=== PATIENT | female | born 1945 | race Caucasian/White ===

== ENCOUNTER 2016-03-12 11:29 | Inpatient (IN) | payer MEDICARE, OTHER ==
[2016-03-12] MEDS ORDERED: SODIUM CHLORIDE 0.9% 1,000 ML IV STA (15:49)
--- NOTE | 2016-03-12 15:55 | ED ---
General Adult HPI - General Chief complaint: Neuro Symptoms/Deficit Stated complaint: weakness Time Seen by Provider: 03/12/16 15:19 Source: patient Mode of arrival: wheelchair Limitations: no limitations - History of Present Illness Initial comments: Patient is a 70-year-old female with past history of COPD, CAD, diabetes, hypertension, hyperlipidemia presenting with weakness. Per , patient was last seen normal around dinnertime yesterday at 3 PM. Patient woke up this morning around 7:30 AM unable to talk and walk. Glucose was checked and noted to be 74. Patient then ate peanut butter and 15-20 minutes later symptoms seemed to resolved with a repeat glucose around 222. Patient was persistently still weak on her feet. They state she's had symptoms like this before and was related to her glucose. Patient called PCP who directed her to the emergency room. Patient denies fever, chills, chest pain, stress breath, nausea, vomiting , diarrhea, dysuria. Patient was a double vision, decrease concentration, weakness, disequilibrium. - Related Data Home Medications Medication Instructions Recorded Confirmed Atorvastatin [Lipitor] 80 mg PO HS 03/21/14 03/12/16 Baclofen 10 - 20 mg PO HS 03/21/14 03/12/16 Dicyclomine [Bentyl] 10 mg PO TID PRN 03/21/14 03/12/16 Fluticasone/Salmeterol [Advair 1 puff INHALATION RT-BID 03/21/14 03/12/16 250-50 Diskus] Hydrochlorothiazide [Hydrodiuril] 25 mg PO QAM 03/21/14 03/12/16 Hydrocodone/Acetaminophen [Taylor 1 tab PO Q6HR PRN 03/21/14 03/12/16 7.5-325] Levocetirizine Dihydrochloride 5 mg PO QAM 03/21/14 03/12/16 [Xyzal] Lisinopril [Zestril] 5 mg PO QAM 03/21/14 03/12/16 Meclizine [Antivert] 25 mg PO TID PRN 03/21/14 03/12/16 Modafinil [Provigil] 100 mg PO TID 03/21/14 03/12/16 Pantoprazole Sodium [Protonix] 40 mg PO QAM 03/21/14 03/12/16 Pramipexole Di-HCl [Mirapex] 1 mg PO HS 03/21/14 03/12/16 Pregabalin [Lyrica] 200 mg PO TID 03/21/14 03/12/16 sitaGLIPtin PHOSPHATE [Januvia] 100 mg PO QAM 03/21/14 03/12/16 Albuterol Nebulized [Ventolin 2.5 mg INHALATION RT-Q6H 05/22/14 03/12/16 Nebulized] traMADol HCl [Ultram] 50 mg PO TID 05/22/14 03/12/16 ALPRAZolam [Xanax] 0.25 mg PO HS 03/09/15 03/12/16 Lidocaine 5% Patch [Lidoderm] 1 patch TOPICAL DAILY PRN 03/09/15 03/12/16 Insulin Aspart [NovoLOG] 24 unit SQ AC-TID 04/11/15 03/12/16 Montelukast [Singulair] 10 mg PO HS 04/11/15 03/12/16 Cholecalciferol [Vitamin D3] 1,000 unit PO DAILY 03/12/16 03/12/16 DULoxetine HCL [Cymbalta] 60 mg PO DAILY 03/12/16 03/12/16 Ezetimibe [Zetia] 10 mg PO HS 03/12/16 03/12/16 Fenofibrate,Micronized 200 mg PO DAILY 03/12/16 03/12/16 [Fenofibrate] Insulin Aspart [NovoLOG] See Protocol SQ ACHS 03/12/16 03/12/16 Insulin Degludec [Tresiba 80 units SQ HS 03/12/16 03/12/16 Flextouch U-200] Allergies Allergy/AdvReac Type Severity Reaction Status Date / Time aspirin Allergy Swelling Verified 03/12/16 15:15 hydromorphone HCl Allergy Rash/Hives Verified 03/12/16 15:15 [From Dilaudid] ipratropium bromide Allergy Swelling Verified 03/12/16 15:15 [From Atrovent] meperidine HCl [From Demerol] Allergy Rash/Hives Verified 03/12/16 15:15 morphine Allergy Vomiting Verified 03/12/16 15:15 ibuprofen AdvReac Swelling Verified 03/12/16 15:15 metformin AdvReac Unknown Verified 03/12/16 15:15 trazodone AdvReac Unknown Verified 03/12/16 15:15 zolpidem tartrate AdvReac Hallucinati Verified 03/12/16 15:15 [From Anniaien] ons MSG Allergy Rash/Hives Uncoded 03/12/16 12:19 Review of Systems ROS Statement: Those systems with pertinent positive or pertinent negative responses have been documented in the HPI. Constitutional: No fever and no chills. HENT: No congestion, no rhinorrhea and no sore throat. Eyes: No discharge and no redness. Respiratory: No cough and no shortness of breath. Cardiovascular: No chest pain and no palpitations. Gastrointestinal: No nausea, no vomiting, no abdominal pain and no diarrhea. Genitourinary: No dysuria and no hematuria. Musculoskeletal: No back pain and no arthralgias. Skin: No pallor and no rash. Neurological: +dizziness and +headaches. ROS Other: All systems not noted in ROS Statement are negative. Past Medical History Past Medical History: Asthma, Coronary Artery Disease (CAD), COPD, Diabetes Mellitus, Hyperlipidemia, Hypertension, Pneumonia Additional Past Medical History / Comment(s): IBS, narcolepsy with cataplexy History of Any Multi-Drug Resistant Organisms: None Reported Past Surgical History: Appendectomy, Breast Surgery, Heart Catheterization, Hernia Repair, Hysterectomy Additional Past Surgical History / Comment(s): BILATERAL CATARACTS. Rt lumpectomy - neg, D&C. Past Anesthesia/Blood Transfusion Reactions: No Reported Reaction Past Psychological History: Anxiety, Depression Smoking Status: Never smoker Past Alcohol Use History: None Reported Past Drug Use History: None Reported - Past Family History Mother Family Medical History: Hyperlipidemia, Hypertension Additional Family Medical History / Comment(s): ANEMIA Father Family Medical History: Cancer, Diabetes Mellitus General Exam - General Exam Comments Initial Comments: Constitutional: Patient appears well-developed and well-nourished. No distress. Head: Normocephalic and atraumatic. Eyes: Conjunctivae and EOM are normal. Right eye exhibits no discharge. Left eye exhibits no discharge. No scleral icterus. Neck: Normal range of motion. Neck supple. Cardiovascular: Normal rate and regular rhythm. No murmur heard. Pulmonary/Chest: Effort normal and breath sounds normal. No respiratory distress. Mild wheezes bilaterally. Abdominal: Soft. No distension. There is no tenderness. There is no rebound and no guarding. Musculoskeletal: Normal range of motion. No edema or tenderness. Neuro Exam: A&Ox3, speech is fluent and spontaneous CN 2: no visual field deficits, PERRL CN 3, 4, 6: EOMI CN 5: facial sensation intact b/l CN 7: Eyebrow raise and smile equal b/l CN 8: hearing intact to conversation CN 9, 10: palate elevation equal, no hoarseness to voice CN 11: shoulder shrug equal b/l CN 12: tongue protrusion w/o deviation Sensory: Intact to light touch, upper and lower extremities Motor: Mild weakness to left hand kier hand 4/5 compared to right 5/5. No pronator drift, no atrophy, normal muscle tone, b/l muscle strength 5/5 biceps, triceps, quads, hamstrings, plantar and dorsiflexion Cerebellar: Patient with bilateral upper extremity ataxia, heel to baltazar intact b /l, Romberg positive Gait: Patient leans to the right. Skin: Skin is warm and dry. Not diaphoretic. Nursing notes and vitals reviewed. Limitations: no limitations Course Vital Signs 03/12/16 03/12/16 03/12/16 12:14 15:13 17:31 Temperature 98.3 F 97.4 F L 97.4 F L Pulse Rate 96 90 79 Respiratory 18 18 18 Rate Blood Pressure 144/70 140/80 134/75 O2 Sat by Pulse 100 97 97 Oximetry EKG Findings - EKG Comments: EKG Findings:: EKG done at 1301 shows ventricular rate 92 bpm, SC interval 160 ms, QRS duration 80 ms, QTC 462 ms. Normal sinus rhythm. no ST or T-wave change. Medical Decision Making - Medical Decision Making Patient is a 70-year-old female past history of CAD, diabetes, hypertension, hyperlipidemia presenting with aphasia and weakness. Last known normal was 3 PM yesterday. Patient is neurological exam concerning for bilateral upper extremity ataxia. Mild decreased kier hand strength on left and positive Romberg. CBC, BMP, troponin, EKG, UA unremarkable. CT head negative. Patient alert aspirin she gets hives. NIH=2 for bilateral upper extremity ataxia. Patient not a TPA candidate and discussed with family as she is outside the window. Patient will need further testing. Patient was resting comfortably in bed. Course of stay improved. Denies pain. Discussed physical exam and diagnostic tests with patient. Questions answered and patient is agreeable to staying in the hospital. Discussed H&P and pertinent diagnostic tests with admitting physician, Dr. Brice, who agrees with plan and accepts admission of patient. He is requesting MRI/MRI be ordered. - Lab Data Result diagrams: 03/12/16 15:47 03/12/16 15:47 Lab Results 03/12/16 03/12/16 03/12/16 Range/Units 15:47 15:47 15:47 WBC 7.4 (3.8-10.6) k/uL RBC 5.33 (3.80-5.40) m/uL Hgb 15.5 (11.4-16.0) gm/dL Hct 46.0 (34.0-46.0) % MCV 86.4 (80.0-100.0) fL MCH 29.0 (25.0-35.0) pg MCHC 33.6 (31.0-37.0) g/dL RDW 13.5 (11.5-15.5) % Plt Count 211 (150-450) k/uL Neutrophils % 75 % Lymphocytes % 13 % Monocytes % 6 % Eosinophils % 2 % Basophils % 1 % Neutrophils # 5.6 (1.3-7.7) k/uL Lymphocytes # 1.0 (1.0-4.8) k/uL Monocytes # 0.5 (0-1.0) k/uL Eosinophils # 0.2 (0-0.7) k/uL Basophils # 0.1 (0-0.2) k/uL PT 9.9 (9.0-12.0) sec INR 1.0 (<1.1) APTT 22.0 (22.0-30.0) sec Sodium 140 (137-145) mmol/L Potassium 3.9 (3.5-5.1) mmol/L Chloride 96 L (98-107) mmol/L Carbon Dioxide 32 H (22-30) mmol/L Anion Gap 12 mmol/L BUN 16 (7-17) mg/dL Creatinine 0.64 (0.52-1.04) mg/dL Est GFR (MDRD) Af Amer >60 (>60 ml/min/1.73 sqM) Est GFR (MDRD) Non-Af >60 (>60 ml/min/1.73 sqM) Glucose 145 H (74-99) mg/dL Calcium 9.7 (8.4-10.2) mg/dL Magnesium 1.9 (1.6-2.3) mg/dL Troponin I (0.000-0.034) ng/mL Urine Color Urine Appearance (Clear) Urine pH (5.0-8.0) Ur Specific [place] (1.001-1.035) Urine Protein (Negative) Urine Glucose (UA) (Negative) Urine Ketones (Negative) Urine Blood (Negative) Urine Nitrate (Negative) Urine Bilirubin (Negative) Urine Urobilinogen (<2.0) mg/dL Ur Leukocyte Esterase (Negative) 03/12/16 03/12/16 Range/Units 15:47 16:53 WBC (3.8-10.6) k/uL RBC (3.80-5.40) m/uL Hgb (11.4-16.0) gm/dL Hct (34.0-46.0) % MCV (80.0-100.0) fL MCH (25.0-35.0) pg MCHC (31.0-37.0) g/dL RDW (11.5-15.5) % Plt Count (150-450) k/uL Neutrophils % % Lymphocytes % % Monocytes % % Eosinophils % % Basophils % % Neutrophils # (1.3-7.7) k/uL Lymphocytes # (1.0-4.8) k/uL Monocytes # (0-1.0) k/uL Eosinophils # (0-0.7) k/uL Basophils # (0-0.2) k/uL PT (9.0-12.0) sec INR (<1.1) APTT (22.0-30.0) sec Sodium (137-145) mmol/L Potassium (3.5-5.1) mmol/L Chloride (98-107) mmol/L Carbon Dioxide (22-30) mmol/L Anion Gap mmol/L BUN (7-17) mg/dL Creatinine (0.52-1.04) mg/dL Est GFR (MDRD) Af Amer (>60 ml/min/1.73 sqM) Est GFR (MDRD) Non-Af (>60 ml/min/1.73 sqM) Glucose (74-99) mg/dL Calcium (8.4-10.2) mg/dL Magnesium (1.6-2.3) mg/dL Troponin I <0.012 (0.000-0.034) ng/mL Urine Color Light Yellow Urine Appearance Clear (Clear) Urine pH 7.0 (5.0-8.0) Ur Specific [place] 1.008 (1.001-1.035) Urine Protein Negative (Negative) Urine Glucose (UA) Negative (Negative) Urine Ketones Negative (Negative) Urine Blood Negative (Negative) Urine Nitrate Negative (Negative) Urine Bilirubin Negative (Negative) Urine Urobilinogen <2.0 (<2.0) mg/dL Ur Leukocyte Esterase Negative (Negative) Disposition Clinical Impression: Ataxia Disposition: ADMITTED IP TO THIS HOSP Referrals: Chris Caicedo DO [Primary Care Provider] - 1-2 days
[2016-03-12 16:00] LABS: Basophils # (A) 0.1 k/uL (0-0.2); Basophils % (A) 1 %; CH 30.2; CHCM 35.2; Eosinophils # (A) 0.2 k/uL (0-0.7); Eosinophils % (A) 2 %; HDW 3.18; HGB 15.5 gm/dL (11.4-16.0); Luc # (Auto) 0.15; Luc % (Auto) 2; Lymphocytes % (A) 13 %; MCHC 33.6 g/dL (31.0-37.0); MCV 86.4 fL (80.0-100.0); Mean Platelet Volume 7.8; Monocytes # (A) 0.5 k/uL (0-1.0); Monocytes % (A) 6 %; Neutrophils # (A) 5.6 k/uL (1.3-7.7); Neutrophils % (A) 75 %; RBC 5.33 m/uL (3.80-5.40); RDW 13.5 % (11.5-15.5); WBC 7.4 k/uL (3.8-10.6); WBC (Perox) 7.55
[2016-03-12 16:09] LABS: Anion Gap 12 mmol/L; Blood Urea Nitrogen 16 mg/dL (7-17); Calcium 9.7 mg/dL (8.4-10.2); Carbon Dioxide 32 mmol/L (22-30); Chloride 96 mmol/L (98-107); Glucose 145 mg/dL (74-99); Magnesium 1.9 mg/dL (1.6-2.3); Non-African American GFR(MDRD) >60 (>60 ml/min/1.73 sqM); Potassium 3.9 mmol/L (3.5-5.1); Sodium 140 mmol/L (137-145)
--- NOTE | 2016-03-12 16:09 | CT ---
EXAMINATION TYPE: CT brain wo con DATE OF EXAM: 03/12/2016 4:06 PM COMPARISON: 11/09/2014 HISTORY: Pt states of dizziness today. CT DLP: 924.[address] of the brain was performed. The ventricles, basal cisterns and sulci overlying the cerebral convexities demonstrate mild enlargem ent. There is no evidence for intracranial hemorrhage or sulcal effacement. There is decreased attenuation about the periventricular white matter and deep white matter of both c erebral hemispheres, compatible with chronic small vessel ischemia. Differential diagnosis does inclu de demyelination. No mass effects are seen.No midline shift. Osseous calvarium is intact. If symptoms persist consider MRI. IMPRESSION: 1. Age related atrophic and chronic small vessel ischemic change without acute intracranial process s een at this time.
[2016-03-12 16:10] LABS: Prothrombin Time 9.9 sec (9.0-12.0)
[2016-03-12 17:03] LABS: Appearance,Urine Clear (Clear); Bilirubin,Urine Negative (Negative); Glucose,Urine (UA) Negative (Negative); Ketones,Urine Negative (Negative); Leukocyte Esterase,Urine Negative (Negative); Nitrite,Urine Negative (Negative); Protein,Urine Negative (Negative); Specific Gravity,Urine 1.008 (1.001-1.035); UA Billing (MACRO vs. MICRO) CHEM; Urobilinogen,Urine <2.0 mg/dL (<2.0)
[2016-03-12] MEDS ORDERED: SODIUM CHLORIDE 0.9% 1,000 ML IV ONE (17:50)
[2016-03-12] MEDS ORDERED: ALPRAZolam 0.25 MG TAB PO PRN (20:34)
[2016-03-12] MEDS ORDERED: DICYCLOMINE 10 MG CAP PO PRN (20:35)
[2016-03-12] MEDS ORDERED: MECLIZINE 25 MG TAB PO PRN (20:35)
[2016-03-12] MEDS ORDERED: LIDOCAINE 5% PATCH TOPICAL PRN (20:35)
[2016-03-12 21:34] LABS: Glucose,Whole Blood 107 mg/dL (75-99)
[2016-03-12] MEDS: HYDROcodone/APAP 7.5-325MG 1 EACH TAB PO PRN (22:10)
[2016-03-12] MEDS: PREGABALIN 100 MG CAP PO SCH (22:12)
[2016-03-12] MEDS: MONTELUKAST 10 MG TAB PO SCH (22:12)
[2016-03-12] MEDS: BACLOFEN 10 MG TAB PO SCH (22:13)
[2016-03-12] MEDS: EZETIMIBE 10 MG TAB PO SCH (22:13)
[2016-03-12] MEDS: ATORVASTATIN 80 MG TAB PO SCH (22:14)
[2016-03-12] MEDS: PRAMIPEXOLE 1 MG TAB PO SCH (22:14)
[2016-03-13] MEDS: ALBUTEROL NEBULIZED 2.5 MG/3 ML INHALATION SCH ×4 (02:11→19:41)
[2016-03-13 06:22] LABS: Glucose,Whole Blood 205 mg/dL (75-99)
[2016-03-13 06:57] LABS: Basophils # (A) 0.1 k/uL (0-0.2); Basophils % (A) 1 %; CH 29.8; Eosinophils # (A) 0.2 k/uL (0-0.7); Eosinophils % (A) 4 %; HDW 3.13; HGB 13.5 gm/dL (11.4-16.0); Luc # (Auto) 0.12; Luc % (Auto) 2; Lymphocytes # (A) 0.9 k/uL (1.0-4.8); Lymphocytes % (A) 17 %; MCHC 32.9 g/dL (31.0-37.0); MCV 88.2 fL (80.0-100.0); Mean Platelet Volume 7.5; Monocytes # (A) 0.3 k/uL (0-1.0); Monocytes % (A) 7 %; Neutrophils # (A) 3.6 k/uL (1.3-7.7); Neutrophils % (A) 69 %; RBC 4.65 m/uL (3.80-5.40); RDW 13.3 % (11.5-15.5); WBC 5.2 k/uL (3.8-10.6); WBC (Perox) 5.41
[2016-03-13 07:04] LABS: Anion Gap 10 mmol/L; Blood Urea Nitrogen 18 mg/dL (7-17); Carbon Dioxide 27 mmol/L (22-30); Chloride 102 mmol/L (98-107); Cholesterol 229 mg/dL (<200); Glucose 189 mg/dL (74-99); HDL Cholesterol 36 mg/dL (40-60); Non-African American GFR(MDRD) >60 (>60 ml/min/1.73 sqM); Potassium 4.2 mmol/L (3.5-5.1); Sodium 139 mmol/L (137-145); Triglycerides 184 mg/dL (<150)
--- NOTE | 2016-03-13 07:56 | MR ---
EXAMINATION TYPE: MR angio head wo con DATE OF EXAM: 03/13/2016 7:43 AM COMPARISON: NONE HISTORY: ataxia TECHNIQUE: Time of flight images focusing on the [place] were performed without contrast. FINDINGS: Vertebral arteries appear codominant. The posterior cerebral vasculature including the basi lar artery posterior cerebral arteries appear normal. The internal carotid arteries bifurcate normall y into A1 and M1 segments. The A2 segments appear normal. The anterior communicating artery is patent . Middle cerebral artery branches appear normal. No suspicious aneurysm is evident. No focal cut off is evident. Posterior communicating arteries are patent. IMPRESSION: 1. Normal [place].
--- NOTE | 2016-03-13 08:01 | MR ---
EXAMINATION TYPE: MR brain wo con DATE OF EXAM: 03/13/2016 7:43 AM COMPARISON: 02/12/2013 HISTORY: ataxia CONTRAST: Performed utilizing 0 mL intravenous MultiHance gadolinium contrast. TECHNIQUE: Multiplanar, multiecho imaging on a 3.0 Araceli magnet is performed through the brain. Stud y is performed within 24 hours of arrival to the hospital. The craniovertebral junction is normal. The pituitary is normal. Diffusion-weighted imaging is performed. No abnormal hyperintensity is present to suggest an acute i ntracranial infarct or acute ischemic change. Signal within the brain appears normal. No significant white matter changes are evident. Ventricles and sulci are appropriate for the patient age. No significant interval change from the comparison is evident. IMPRESSIONS: 1. Normal MRI brain
[2016-03-13] MEDS: traMADol 50 MG TAB PO SCH ×3 (08:08→15:39)
[2016-03-13] MEDS: ALPRAZolam 0.25 MG TAB PO SCH ×2 (08:08→22:36)
[2016-03-13] MEDS: MELATONIN 3 MG TABLET PO SCH ×2 (08:08→22:26)
--- NOTE | 2016-03-13 09:20 | US ---
EXAMINATION TYPE: US carotid duplex BILAT DATE OF EXAM: 03/13/2016 8:55 AM COMPARISON: See PACS CLINICAL HISTORY: stroke. EXAM MEASUREMENTS: RIGHT: Peak Systolic Velocity (PSV) cm/sec ----- Right CCA: 77.3 ----- Right ICA: 84.4 ----- Right ECA: 123.6 ICA/CCA ratio: 1.1 RIGHT: End Diastole cm/sec ----- Right CCA: 23.9 ----- Right ICA: 25.9 ----- Right ECA: 21.8 LEFT: Peak Systolic Velocity (PSV) cm/sec ----- Left CCA: 86.1 ----- Left ICA: 86.6 ----- Left ECA: 64.4 ICA/CCA ratio: 1.0 LEFT: End Diastole cm/sec ----- Left CCA: 21.0 ----- Left ICA: 31.3 ----- Left ECA: 9.5 VERTEBRALS (direction of flow): Right Vertebral: Antegrade Left Vertebral: Antegrade TECHNOLOGIST IMPRESSION: Mild plaque, no significant velocity elevations. Grayscale, color Doppler, spectral Doppler imaging performed of the carotid arteries. IMPRESSION: No hemodynamic significant stenosis of the proximal internal carotid arteries bilaterally by Doppler criteria.
--- NOTE | 2016-03-13 09:24 | HP ---
DATE OF ADMISSION: The chief complaint is difficulty walking. HISTORY OF PRESENT ILLNESS: This is a 70-year-old woman with a past medical history of asthma, COPD, history of CAD, diabetes, hypertension, hyperlipidemia, history of pneumonia, history of breast surgery, history of appendectomy, cardiac catheterization, anxiety, depression, being followed by Dr. Caicedo in the outpatient setting, apparently had some weakness after waking up this morning. The patient was unable to walk a straight line. Patient was slightly disoriented according to the and patient also worsening in some weakness and difficulty in talking also. The blood sugars were 70 and after eating a peanut butter sandwich the sugars went up to 220. The patient was taken to [facility] later per advice from the medical office. The patient's symptoms are continuing until later today. As mentioned earlier, exact onset is unknown at this time and the patient is still mostly dysarthric even though the change in mental status and difficulty in speaking has improved. The left side is slightly more weak than the right side. There is no history of fever, rigors or chills. No history of headaches or seizures. PAST MEDICAL HISTORY: Asthma, COPD, CAD, hypertension, hyperlipidemia, history of pneumonia, irritable bowel syndrome, narcolepsy, cataplexy. Medications prior to admission include, home medications are: 1. Ultram 50 mg p.o. t.i.d. 2. Januvia 100 mg q.a.m. 3. Lyrica 200 mg t.i.d. 4. Mirapex 1 mg q.h.s. 5. Protonix 40 mg. 6. Singulair 10 mg q.h.s. 7. Provigil 100 mg p.o. t.i.d. 8. Antivert 25 mg t.i.d. p.r.n. 9. Zestril 5 mg q.a.m. 10. Lidoderm patch topically daily p.r.n. 11. Xyzal 5 mg q.a.m. 12. Insulin Degludec 80 units subQ q.h.s. 13. NovoLog a.c. and at bedtime. 14. NovoLog 24 units a.c. t.i.d. 15. Leadore 7.5 q.6 p.r.n. 16. HydroDIURIL 25 mg q.a.m.. 17. Advair 250-50 one puff b.i.d. 18. Fenofibrate 200 mg p.o. daily. 19. Zetia 10 mg p.o. q.h.s. 20. Bentyl 10 mg p.o. t.i.d. p.r.n. 21. Cymbalta 60 mg p.o. daily. 22. Vitamin D3 one thousand units daily. 23. Baclofen 10 - 20 mg q.h.s. 24. Lipitor 80 mg q.h.s. 25. Ventolin 2.5 q.6 p.r.n. 26. Xanax 0.5 q.h.s. Allergies are ASPIRIN, DILAUDID, ATROVENT, DEMEROL, MORPHINE, IBUPROFEN, METFORMIN, TRAZODONE, AMBIEN, MSG. FAMILY HISTORY: History of hypertension, hyperlipidemia, history of anemia. SOCIAL HISTORY: No history of smoking, no history of alcohol. REVIEW OF SYSTEMS: ENT: No diminished hearing of vision. CARDIOVASCULAR SYSTEM: No angina. RESPIRATORY: As mentioned earlier. GI: No nausea. : No dysuria. NERVOUS SYSTEM: As mentioned earlier. ENDOCRINE: Diabetes mellitus. CONSTITUTIONAL: As mentioned earlier. DERMATOLOGY: Negative. RHEUMATOLOGY: Negative. PSYCHIATRY: As mentioned earlier. PHYSICAL EXAMINATION: Patient is alert and oriented x3. Pulse is 79, blood pressure 130/75, respirations 18, temperature 97.4, pulse ox is 96% on room air. HEENT: Conjunctivae normal. Oral mucosa moist. NECK: No jugular venous distention. No carotid bruit. No lymph node enlargement. CARDIOVASCULAR SYSTEM: S1, S2, muffled, no S3, no S4. RESPIRATORY: Breath sounds diminished at the bases, bilateral scattered rhonchi, no crackles. Abdomen is soft, nontender, no mass palpable. EXTREMITIES: Legs no edema, no swelling. NERVOUS SYSTEM: Higher functions as mentioned earlier. Moves all 4 limbs. Otherwise cranial nerves 2 through 12 grossly intact. No nystagmus, diplopia is present on extreme gaze. Otherwise, no facial deviation. Motor power is normal except left lower limb which is grade 4+ power; otherwise, reflexes are preserved. SKIN: No ulcers, rash, bleeding. LYMPHATICS: No lymph node enlargement in the neck, axillae, or groin. JOINTS: No active deforming arthropathy. LABS: CBC within normal limits. CO2 is 32, glucose 145. ASSESSMENT: 1. Ataxia, difficulty in speaking and weakness of the left leg with possible vertebrobasilar stroke. 2. Change in mental status, metabolic encephalopathy secondary to stroke. 3. Diabetes mellitus type 2. 4. History of coronary artery disease. 5. Asthma, chronic obstructive pulmonary disease. 6. Hypertension. 7. Hyperlipidemia. 8. History of pneumonia. 9. History of irritable bowel syndrome. 10. History of narcolepsy and cataplexy. 11. History of breast surgery. 12. History of cardiac catheterization. 13. History of hernia repair. 14. Bilateral cataracts. 15. Anxiety, depression, not otherwise specified. RECOMMENDATION AND DISCUSSION: In this 70-year-old woman who presented with multiple complex medical issues, will monitor the patient closely. Continue with the current medication and symptomatic treatment and the CAT scan has been reviewed. She did not show any acute abnormality at this time. I will get a Neurology consultation, neurovascular work-up. Will monitor blood pressure closely. Otherwise, also recommend antiplatelet agents at this time. Lipid panel. Other than that, repeat labs. Resume the home medications. DVT prophylaxis. Neurology consultation. MRI and MRA with and without gadolinium. Guarded prognosis because of multiple complex medical issues. Further recommendations to follow. A copy of this will be forwarded to Dr. Caicedo who is the primary physician. See orders for further details. Follow precautions.
[2016-03-13] MEDS: SYMBICORT 80-4.5 MCG INHALER INHALATION SCH ×2 (09:38→19:41)
[2016-03-13] MEDS: DULoxetine HCL 60 MG CAPSULE.DR PO SCH (09:51)
[2016-03-13] MEDS: PANTOPRAZOLE 40 MG TABLET PO SCH (09:51)
[2016-03-13] MEDS: FENOFIBRATE 160 MG TAB PO SCH (09:52)
[2016-03-13] MEDS: LORATADINE 10 MG TAB PO SCH (09:52)
[2016-03-13] MEDS: HYDROCHLOROTHIAZIDE 25 MG TAB PO SCH (09:52)
[2016-03-13] MEDS: LINAGLIPTIN 5 MG TABLET PO SCH (09:52)
[2016-03-13] MEDS: LISINOPRIL 5 MG TAB PO SCH (09:52)
[2016-03-13] MEDS: INSULIN LISPRO (humaLOG) 300 UNIT/3 ML VIAL SQ SCH ×4 (09:53→17:21)
[2016-03-13] MEDS: PREGABALIN 100 MG CAP PO SCH ×2 (09:53→15:38)
--- NOTE | 2016-03-13 10:04 | ECHOF ---
Referral Reason:Stroke MEASUREMENTS -------- HEIGHT: 177.8 cm WEIGHT: 72.6 kg BP: 126/64 RVIDd: 2.8 cm (< 3.3) IVSd: 1.1 cm (0.6 - 1.1) LVIDd: 3.4 cm (3.9 - 5.3) LVPWd: 1.2 cm (0.6 - 1.1) IVSs: 1.3 cm LVIDs: 2.2 cm LVPWs: 1.4 cm LA Diam: 3.1 cm (2.7 - 3.8) LAESV Index (A-L): 17.49 ml/m Ao Diam: 2.6 cm (2.0 - 3.7) AV Cusp: 1.9 cm (1.5 - 2.6) MV EXCURSION: 11.844 mm (> 18.000) MV EF SLOPE: 52 mm/s (70 - 150) EPSS: 0.3 cm MV E Leonardo: 0.86 m/s MV DecT: 287 ms MV A Leonardo: 1.07 m/s MV E/A Ratio: 0.80 AV maxP.95 mmHg AV meanP.92 mmHg RAP: 5.00 mmHg RVSP: 24.18 mmHg FINDINGS -------- Sinus rhythm. This was a technically good study. The left ventricular size is normal. There is borderline concentric left ventricular hypertrophy. Overall left ventricular systolic function is normal with, an EF between 60 - 65 %. The right ventricle is normal in size and function. The left atrium is normal in size. Normal LA size by volume 22+/-6 ml/m2. The right atrium is normal in size. The aortic valve is trileaflet, and appears structurally normal. No aortic stenosis or regurgitation. Normal appearing mitral valve. No mitral regurgitation. Mild tricuspid regurgitation present. Right ventricular systolic pressure is normal at < 35 mmHg. The pulmonic valve is normal. The aortic root size is normal. Normal inferior vena cava with normal inspiratory collapse consistent with estimated right atrial pressure of 5 mmHg. There is no pericardial effusion. CONCLUSIONS -------- 1. Sinus rhythm. 2. Normal appearing mitral valve. 3. Mild tricuspid regurgitation present. 4. Right ventricular systolic pressure is normal at < 35 mmHg. 5. The pulmonic valve is normal. 6. The aortic root size is normal. 7. Normal inferior vena cava with normal inspiratory collapse consistent with estimated right atrial pressure of 5 mmHg. 8. There is no pericardial effusion. 9. This was a technically good study. 10. The left ventricular size is normal. 11. There is borderline concentric left ventricular hypertrophy. 12. Overall left ventricular systolic function is normal with, an EF between 60 - 65 %. 13. The right ventricle is normal in size and function. 14. Normal LA size by volume 22+/-6 ml/m2. 15. The right atrium is normal in size. 16. The aortic valve is trileaflet, and appears structurally normal. No aortic stenosis or regurgitation. ARBOREAL SCIENTIST: Annamaria Mason RDCS
[2016-03-13] MEDS: MODAFINIL 100 MG TAB PO SCH ×3 (10:51→17:19)
[2016-03-13 11:38] LABS: Glucose,Whole Blood 241 mg/dL (75-99)
[2016-03-13] MEDS: INSULIN DEGLUDEC 80 UNIT SQ SCH ×2 (11:48→22:28)
[2016-03-13] MEDS: THIAMINE 100 MG TAB PO SCH (12:04)
[2016-03-13] MEDS: MULTIVITAMINS, THERA 1 EACH TAB PO SCH (12:04)
[2016-03-13] MEDS: FOLIC ACID 1 MG TAB PO SCH (12:04)
[2016-03-13] MEDS: CHOLECALCIFEROL 1,000 UNIT TAB PO SCH (12:04)
[2016-03-13 16:33] LABS: Glucose,Whole Blood 108 mg/dL (75-99)
--- NOTE | 2016-03-13 20:00 | PN ---
DATE OF SERVICE: 03/14/2016 This 70-year-old woman who was admitted with ataxia, difficulty in speaking, also possibly with a possible vertebrobasilar CVA/TIA with MRI, MRA normal. Carotid Doppler showed no hemodynamically significant stenosis. No chest pain. No palpitations. No fever. On exam, alert and oriented x3. Pulse 96, blood pressure 129/76, respirations 16, temperature is 97 degrees, pulse ox 96% on room air. HEENT: Conjunctivae normal. NECK: No jugular venous distension. CARDIOVASCULAR: S1 and S2 muffled. RESPIRATORY: Breath sounds diminished in the bases. No rhonchi. No crackles. Abdomen is soft, nontender. LEGS: No edema. NERVOUS SYSTEM: No [id number] ataxia. Generalized ataxia, much diminished, and gait is much better at this time. Otherwise, labs are CBC within normal limits and cholesterol 229 and LDL is 156. ASSESSMENT: 1. Ataxia, difficulty in speaking with weakness of the left leg with possible vertebrobasilar stroke or transient ischemic attack. 2. Change in mental status, metabolic encephalopathy secondary to stroke or transient ischemic attack. 3. Diabetes mellitus type 2. 4. History of coronary artery disease. 5. History of asthma, chronic obstructive pulmonary disease. 6. Hypertension. 7. Hyperlipidemia. 8. History of pneumonia. 9. History of irritable bowel syndrome. 10. History of narcolepsy and cataplexy. 11. History of breast surgery. 12. Cardiac catheterization. 13. History of hernia repair. 14. History of bilateral cataracts. 15. Anxiety and depression, not otherwise specified. 16. Hypercholesterolemia. RECOMMENDATIONS AND DISCUSSION: In this 70-year-old woman who presented with multiple complex medical issues, will monitor the patient closely. Continue with the current medications. Continue with symptomatic treatment. Otherwise, PT, OT evaluation. Monitor closely. Neurology evaluation, neurovascular workup. Will continue the Lipitor. Guarded because of multiple complex medical issues. Further recommendations to follow.
[2016-03-13 20:34] LABS: Glucose,Whole Blood 245 mg/dL (75-99)
[2016-03-13] MEDS ORDERED: ALBUTEROL NEBULIZED 2.5 MG/3 ML INHALATION PRN (20:46)
[2016-03-13] MEDS: EZETIMIBE 10 MG TAB PO SCH (22:28)
[2016-03-13] MEDS: MONTELUKAST 10 MG TAB PO SCH (22:28)
[2016-03-13] MEDS: BACLOFEN 10 MG TAB PO SCH (22:28)
[2016-03-13] MEDS: PRAMIPEXOLE 1 MG TAB PO SCH (22:28)
[2016-03-13] MEDS: ATORVASTATIN 80 MG TAB PO SCH (22:28)
[2016-03-13] MEDS: CLOPIDOGREL 75 MG TAB PO SCH (22:34)
[2016-03-13] MEDS: HYDROcodone/APAP 7.5-325MG 1 EACH TAB PO PRN (22:35)
[2016-03-14 00:42] VITALS: TEMP 97.4
[2016-03-14] MEDS: PREGABALIN 100 MG CAP PO SCH ×3 (04:49→17:01)
[2016-03-14] MEDS: traMADol 50 MG TAB PO SCH ×3 (04:49→17:03)
[2016-03-14 05:51] LABS: Glucose,Whole Blood 219 mg/dL (75-99)
[2016-03-14 06:38] LABS: Basophils % (A) 1 %; CH 29.9; CHCM 34.1; Eosinophils # (A) 0.1 k/uL (0-0.7); Eosinophils % (A) 3 %; HCT 40.7 % (34.0-46.0); HDW 3.11; HGB 13.6 gm/dL (11.4-16.0); Luc % (Auto) 4; Lymphocytes # (A) 0.7 k/uL (1.0-4.8); Lymphocytes % (A) 14 %; MCH 29.3 pg (25.0-35.0); MCHC 33.3 g/dL (31.0-37.0); MCV 88.1 fL (80.0-100.0); Mean Platelet Volume 7.5; Monocytes # (A) 0.3 k/uL (0-1.0); Monocytes % (A) 7 %; Neutrophils # (A) 3.5 k/uL (1.3-7.7); Neutrophils % (A) 71 %; RBC 4.62 m/uL (3.80-5.40); RDW 13.3 % (11.5-15.5); WBC 4.9 k/uL (3.8-10.6); WBC (Perox) 5.67
[2016-03-14 06:47] LABS: Anion Gap 11 mmol/L; Blood Urea Nitrogen 17 mg/dL (7-17); Calcium 9.7 mg/dL (8.4-10.2); Carbon Dioxide 30 mmol/L (22-30); Chloride 98 mmol/L (98-107); Glucose 227 mg/dL (74-99); Non-African American GFR(MDRD) >60 (>60 ml/min/1.73 sqM); Potassium 4.1 mmol/L (3.5-5.1); Sodium 139 mmol/L (137-145)
[2016-03-14] MEDS: ALBUTEROL NEBULIZED 2.5 MG/3 ML INHALATION SCH ×2 (08:16→12:57)
[2016-03-14] MEDS: SYMBICORT 80-4.5 MCG INHALER INHALATION SCH (08:16)
--- NOTE | 2016-03-14 08:40 | CONS ---
DATE OF CONSULTATION: 03/13/2016 CHIEF COMPLAINT: Left-sided weakness. HISTORY OF PRESENT ILLNESS: Mrs. Juarez is a pleasant 70-year-old female who is being evaluated by the neurology service per the request of Dr. Brice for left-sided weakness. The patient was brought into [facility] Emergency Room after she was found to have some weakness on the left side. The patient was unable to ambulate like she usually does and she was quite unsteady on her feet. Her also noticed some disorientation and some difficulty talking. In the emergency room, the patient was noticed to be having some left-sided weakness and her speech was slurred. A stat CT scan of the brain was done, which showed generalized atrophy and small vessel ischemic changes. The patient is not on any antiplatelet therapy at home and she does report an ASPIRIN allergy. The patient was admitted for further workup and management and an MRI and MRA of the brain were done, which showed no abnormalities. Her carotid Doppler showed no hemodynamically significant stenosis. Her CBC and basic metabolic profile were normal. Her fasting lipid panel showed dyslipidemia with cholesterol of 229 and an LDL of 156. The patient does have history of dyslipidemia and is on Lipitor 80 mg daily at home. At the time of my evaluation, the patient reports complete resolution of her left-sided weakness and her speech appears to be back to baseline. She is still complaining of gait instability. Physical therapy did evaluate the patient and it was recommended that she use a walker while walking to avoid any falls. The patient denies any lateralizing numbness. PAST MEDICAL HISTORY: Asthma, coronary artery disease, chronic obstructive pulmonary disease, hypertension, dyslipidemia, irritable bowel syndrome, narcolepsy, cataplexy, gastroesophageal reflux disease, diabetes. SOCIAL HISTORY: The patient denies any tobacco, alcohol or drug use. FAMILY HISTORY: Positive for hypertension and dyslipidemia. HOME MEDICATIONS: Reviewed in the chart. ALLERGIES: ASPIRIN, DILAUDID, ATROVENT, DEMEROL, MORPHINE, MOTRIN, METFORMIN, TRAZODONE, AMBIEN, MSG. REVIEW OF SYSTEMS: CONSTITUTIONAL: Positive for fatigue. EYES: Negative. ENT: Negative. CARDIOVASCULAR: Negative. RESPIRATORY: Negative. NEUROLOGICAL: As mentioned above. GASTROINTESTINAL: Positive for occasional heartburn. GENITOURINARY: Negative. PSYCHIATRIC: Negative. MUSCULOSKELETAL: Positive for occasional joint pain. ENDOCRINE: Positive for diabetes. DERMATOLOGICAL: Negative. PHYSICAL EXAM: Vital signs show a temperature of 97.0, pulse 96, respirations 16, blood pressure 129/76. GENERAL APPEARANCE: The patient is a well-developed female who appears to be in no acute distress. HEENT: Normocephalic, atraumatic, no facial asymmetry is seen. Extraocular muscles are intact. Neck is supple with no masses felt. CARDIOVASCULAR: Regular rate and rhythm. ABDOMEN: Nontender, nondistended. Extremities showed no edema or clubbing. NEUROLOGICAL EXAM: The patient is alert, aware, and oriented x3. Speech and language are normal. Strength is full in all 4 extremities. Postural tremor is seen in the right upper extremity. Dysmetria is noticed on [id number] testing, left more than right. Gait is unsteady. Sensory exam was normal to light touch in all 4 extremities. No facial asymmetry is seen on cranial nerve testing. IMPRESSION: 1. Transient ischemic attack. 2. Dysarthria, resolved. 3. Left hemiparesis, resolved. 4. Unsteady gait. 5. Uncontrolled dyslipidemia. 6. Hypertension. RECOMMENDATIONS: The patient's dysarthria and left hemiparesis have resolved. The patient likely suffered a transient ischemic attack. She does have an ASPIRIN allergy. I will start her on Plavix 75 mg daily. Her carotid Doppler showed no hemodynamically significant stenosis. I did review her MRI and MRA of the brain both of which were normal and the patient was reassured from that standpoint. Given her unsteady gait, there was concerns of cerebellar stroke but this has been ruled out by MRI. Continue physical therapy for her gait instability and I do recommend continued walker use. I will order an EEG and serum homocysteine level. The patient is on a high dose of Lipitor, but she continues to have dyslipidemia. She was counseled on a low-fat diet. I will continue to follow with you. Further recommendations to follow. Thank you for allowing me to participate in the care of your patient. If you have any questions, please feel free to contact me.
[2016-03-14] MEDS: MULTIVITAMINS, THERA 1 EACH TAB PO SCH (09:06)
[2016-03-14] MEDS: FOLIC ACID 1 MG TAB PO SCH (09:06)
[2016-03-14] MEDS: CHOLECALCIFEROL 1,000 UNIT TAB PO SCH (09:06)
[2016-03-14] MEDS: THIAMINE 100 MG TAB PO SCH (09:06)
[2016-03-14] MEDS: INSULIN LISPRO (humaLOG) 300 UNIT/3 ML VIAL SQ SCH ×3 (09:10→17:32)
[2016-03-14] MEDS: DULoxetine HCL 60 MG CAPSULE.DR PO SCH (09:15)
[2016-03-14] MEDS: CLOPIDOGREL 75 MG TAB PO SCH (09:15)
[2016-03-14] MEDS: PANTOPRAZOLE 40 MG TABLET PO SCH (09:15)
[2016-03-14] MEDS: LORATADINE 10 MG TAB PO SCH (09:16)
[2016-03-14] MEDS: FENOFIBRATE 160 MG TAB PO SCH (09:16)
[2016-03-14] MEDS: LINAGLIPTIN 5 MG TABLET PO SCH (09:16)
[2016-03-14] MEDS: LISINOPRIL 5 MG TAB PO SCH (09:16)
[2016-03-14] MEDS: MODAFINIL 100 MG TAB PO SCH ×3 (09:22→17:01)
[2016-03-14 11:22] VITALS: RESP 16
[2016-03-14] MEDS: HYDROCHLOROTHIAZIDE 25 MG TAB PO SCH (12:11)
[2016-03-14 12:15] LABS: Glucose,Whole Blood 102 mg/dL (75-99)
[2016-03-14 13:48] VITALS: BMI 32.8
[2016-03-14 14:28] LABS: Hemoglobin A1C 8.3 % (4.2-6.1)
[2016-03-14 16:56] VITALS: BP 115/70; PULSE 97
[2016-03-14 17:30] LABS: Glucose,Whole Blood 135 mg/dL (75-99)
--- NOTE | 2016-03-14 18:33 | P.PN ---
Subjective Principal diagnosis: Left-sided weakness Is a pleasant 70-year-old female continuing be evaluated by the neurology service for left-sided weakness. She was brought in for unsteadiness on her feet mostly on the left side. There was also some transient disorientation and dysarthria. CT of the brain showed no acute intracranial abnormalities. It did show some generalized atrophy and small vessel ischemic changes. Her MRI and MRA of the brain showed no abnormalities. Her carotid Doppler showed no hemodynamically snug against stenosis. An EEG has been accomplished. Her homocysteine level was within normal limits. She has had complete resolution of her left-sided weakness, and still complains of some generalized leg weakness which is chronic. Physical therapy continues to work with her and she ambulates with her walker. At the time of my exam she is sitting up comfortably at the side of her bed in no acute distress. Objective - Vital Signs Vital signs: Vital Signs Temp 97.4 F L 03/14/16 00:00 Pulse 97 03/14/16 16:00 Resp 16 03/14/16 16:00 BP 115/70 03/14/16 16:00 Pulse Ox 97 03/14/16 16:00 Intake & Output 03/13/16 03/14/16 03/14/16 18:59 06:59 18:59 Intake Total 540 Output Total 1100 600 Balance -560 -600 Weight 71.4 kg 71.4 kg Intake: Oral 540 Output: Urine 1100 600 Other: Voiding Method Bedside Commode Bedside Commode # Voids 2 2 - Constitutional General appearance: Present: no acute distress - EENT Eyes: Present: EOMI, PERRLA. Absent: abnormal pupil, ptosis ENT: Present: hearing grossly normal - Neck Neck: Present: normal ROM - Respiratory Respiratory: negative: prolonged expiration, prolonged inspiration - Cardiovascular Rhythm: regular - Neurologic Neurologic Comment(s): She is alert awake and oriented 3. Speech-language are normal. There is no facial asymmetry. There is no lateralizing weakness. Her gait is symmetrical, but unsteady. Gait with a walker is much more steady. - Labs CBC & Chem 7: 03/14/16 05:48 03/14/16 05:48 Labs: Abnormal Lab Results - Last 24 Hours (Table) 03/13/16 03/14/16 03/14/16 Range/Units 20:31 05:48 05:48 Lymphocytes # 0.7 L (1.0-4.8) k/uL Glucose 227 H (74-99) mg/dL POC Glucose (mg/dL) 245 H (75-99) mg/dL Hemoglobin A1c (4.2-6.1) % 03/14/16 03/14/16 03/14/16 Range/Units 05:48 05:49 12:07 Lymphocytes # (1.0-4.8) k/uL Glucose (74-99) mg/dL POC Glucose (mg/dL) 219 H 102 H (75-99) mg/dL Hemoglobin A1c 8.3 H (4.2-6.1) % 03/14/16 Range/Units 17:15 Lymphocytes # (1.0-4.8) k/uL Glucose (74-99) mg/dL POC Glucose (mg/dL) 135 H (75-99) mg/dL Hemoglobin A1c (4.2-6.1) % Assessment and Plan (1) TIA (transient ischemic attack) Status: Acute (2) Dysarthria Status: Resolved (3) Left hemiparesis Status: Resolved (4) Unsteady gait Status: Chronic (5) Dyslipidemia Status: Chronic (6) Hypertension Status: Chronic (7) Diabetes Status: Chronic Plan: The patient has likely suffered a transient ischemic attack. She will continue to work with physical therapy for her gait instability. She will continue Plavix 75 mg daily. Recommend continued use of walker. Recommend strict control of risk factors. Barring any unforeseen abnormalities on her EEG she would be cleared from a neurological standpoint. We will follow up with her in the office. I have performed a history and physical on the above patient. I have reviewed the above note, and agree.
--- NOTE | 2016-03-14 22:21 | EEG ---
DATE OF SERVICE: 03/14/2016 INDICATIONS FOR EXAMINATION: Transient ischemic attack. AGE: 70Y DESCRIPTION OF THE PROCEDURE: This EEG was performed using a 21-channel digital electroencephalograph, following the international 10-20 system. DESCRIPTION OF THE RECORDING: From the beginning of the tracing, and with the patient's eyes closed, the background rhythm was mostly consisting of 8 Hz alpha frequency in the posterior occipital leads. No obvious asymmetry is seen. Occasional movement artifacts are noticed. Photic stimulation was performed with a minimal driving response seen. No pathological waves were elicited. Movement artifacts were seen during photic stimulation. Hyperventilation was not performed. The patient remains awake throughout the tracing. No epileptiform discharges were seen. Her EKG lead showed a regular rate and rhythm. INTERPRETATION: This awake EEG can be considered within normal limits. There was no asymmetry seen. No epileptiform discharges were noticed. The absence of epileptiform discharges does not rule out the diagnosis of epilepsy, therefore clinical correlation is recommended.
--- NOTE | 2016-03-15 19:14 | DS ---
DATE OF ADMISSION: 03/12/2016 DATE OF DISCHARGE: 03/14/2016 A 70-year-old admitted with ataxia, left-sided hemiparesis. Patient underwent extensive evaluation with MRI and MRA, carotid Doppler, all of which essentially within normal limits. Patient was diagnosed with TIA. Patient's left-sided weakness completely resolved and the patient is being discharged today in stable medical condition to home and patient is ALLERGIC TO ASPIRIN. Because of which patient is being discharged on Plavix. Patient is on high dose of statin and 2 antihyperlipidemic medications in spite of which her LDL remains to be 156. ( ) counseling and dietary counseling was provided. Patient will be discharged today. Patient was seen and examined on the day of discharge. Vitals are stable. GENERAL: The patient is alert and oriented x3, not in any acute distress. Well developed, well nourished. HEENT: Pupils are round and equally reacting to light. EOMI. No scleral icterus. No conjunctival pallor. Normocephalic, atraumatic. No pharyngeal erythema. No thyromegaly. CARDIOVASCULAR: S1 and S2 present. No murmurs, rubs, or gallops. PULMONARY: Chest is clear to auscultation, no wheezing or crackles. ABDOMEN: Soft, nontender, nondistended, normoactive bowel sounds. No palpable organomegaly. MUSCULOSKELETAL: No joint swelling or deformity. EXTREMITIES: No cyanosis, clubbing, or pedal edema. NEUROLOGICAL: Gross neurological examination did not reveal any focal deficits. SKIN: No rashes. FINAL DIAGNOSES: 1. Left-sided hemiparesis with transient left-sided hemiparesis secondary to transient ischemic attack. 2. Type 2 diabetes mellitus. 3. Coronary artery disease. 4. History of asthma. 5. Apparently patient had metabolic encephalopathy secondary to transient ischemic attack on admission. Not sure about ( ) metabolic encephalopathy. 6. Hypertension. 7. Hyperlipidemia. 8. History of narcolepsy. 9. Coronary artery disease. 10. Anxiety and depression. Please refer to my depart summary for further details of discharge medications. DISCHARGE DIET: Cardiac. Activity as tolerated. Patient will follow with Dr. Chris Caicedo on March 19 at 10:00 a.m., Dr. Feliz in about a week. I spent greater than 35 minutes in total discharge process.
== END 2016-03-14 19:04 | disposition home or self-care (01) | DRG 69 ==
LOC: EC 11:29 → 6SEL 17:50
PROVIDERS: ADMIT Hospitalist; ATTEND Hospitalist
DX: G45.9 Transient cerebral ischemic attack, unspecified (principal); G93.41 Metabolic encephalopathy; R47.01 Aphasia; J44.9 Chronic obstructive pulmonary disease, unspecified; I10 Essential (primary) hypertension; E11.9 Type 2 diabetes mellitus without complications; E78.5 Hyperlipidemia, unspecified; J45.909 Unspecified asthma, uncomplicated; E78.00 Pure hypercholesterolemia, unspecified; I25.10 Atherosclerotic heart disease of native coronary artery without angina pectoris; R29.702 NIHSS score 2; K21.9 Gastro-esophageal reflux disease without esophagitis; G47.411 Narcolepsy with cataplexy; K58.9 Irritable bowel syndrome, unspecified; R53.1 Weakness; R27.0 Ataxia, unspecified; R47.1 Dysarthria and anarthria; F41.9 Anxiety disorder, unspecified; F32.9 Major depressive disorder, single episode, unspecified; Z88.6 Allergy status to analgesic agent; Z87.01 Personal history of pneumonia (recurrent); Z82.49 Family history of ischemic heart disease and other diseases of the circulatory system; Z90.49 Acquired absence of other specified parts of digestive tract; Z83.3 Family history of diabetes mellitus; Z79.4 Long term (current) use of insulin; Z98.42 Cataract extraction status, left eye; Z98.41 Cataract extraction status, right eye; Z90.710 Acquired absence of both cervix and uterus; Z80.9 Family history of malignant neoplasm, unspecified; Z90.11 Acquired absence of right breast and nipple; Z79.84 Long term (current) use of oral hypoglycemic drugs; Z79.891 Long term (current) use of opiate analgesic; Z79.51 Long term (current) use of inhaled steroids; Z79.899 Other long term (current) drug therapy; Z88.5 Allergy status to narcotic agent; Z88.8 Allergy status to other drugs, medicaments and biological substances; Z91.02 Food additives allergy status
CPT/HCPCS: 36415; 70450; 70544; 70551; 80048; 80061; 81003; 83036; 83090; 83735; 84484; 85025; 85610; 85730; 93005; 93306; 93880; 94640; 95819; 96360; 96361; 99285

== ENCOUNTER → 2016-04-06 | Outpatient (CLI) | payer MEDICARE, OTHER | END | disposition home or self-care (01) | LOC: LABWHC1 09:09 | PROVIDERS: ATTEND Internal Medicine Endocrinology, Diabetes & Metabolism | DX: E11.65 Type 2 diabetes mellitus with hyperglycemia (principal) | CPT/HCPCS: 36415; 82947; 84681 ==

== ENCOUNTER → 2016-07-17 | Outpatient (CLI) | payer MEDICARE, OTHER ==
--- NOTE | 2016-07-17 18:45 | PN ---
A 70-year-old female patient coming in for further advice regarding her chronic tiredness and sleepiness. This patient has been investigated here in our Sleep [facility] many years back through Dr. Patrick. The patient underwent a PSG and second day MSLT in January 2013. Specifically, the patient was having chronic daytime hypersomnia and sleepiness and she was having difficulties in keeping herself awake and alert. The screening polysomnogram was done and the patient was not found to have any significant sleep apnea. She averaged around 6 hours and 26 minutes of the sleep with a sleep efficiency of 85% and the sleep architecture was characterized by 8.7% stage I, 48.3% stage II, 22.1% stage III, and 21.0% REM sleep. The sleep was quite fragmented and the patient had a total of 92 arousals with an arousal index of 14.3. The patient was found to have no major sleep apnea with an AHI of 2.9 and there was no oxygen desaturations back then and there was no evidence of any periodic limb movements and the cardiac status was stable. Based on that, the patient is secondary MSLT and her mean sleep latency for 5 naps was 9.4 and there was no REM onset sleep. The patient was given a diagnosis of narcolepsy versus chronic hypersomnia and she was given Provigil by Dr. Patrick initially at a dose of 200 mg and later on at dose of 300 mg to be taken in the morning. Despite that, the patient is still having sleepiness and fatigue. The patient states that she is not sleep well and Provigil is not working the way it is supposed to and she has problems staying awake. Sleep quality remains poor and the patient's sleep remains fragmented. She is currently taking Xanax for sleep induction; however, a few hours after going to sleep she would wake up and she has frequent nocturnal arousals. No active pain issues. No shortness of breath. No leg kicks. No sleep paralysis, hallucinations, cataplexy or any other parasomnias noted. The patient was given Ambien in the past which gave her side effects mainly vivid dreams and the patient was given temazepam in the past which she ended up quitting as she was getting hangover and increased drowsiness during the day. For all these reasons she came back for further investigation. No substance abuse. No trauma. No renal failure. No hepatic failure. She takes Lyrica and tramadol for chronic pain of Mirapex for restlessness in the lower extremities and baclofen as a muscle relaxant. She is diabetic and she has hypertension, COPD/asthma. Her current vitals: BP is 134/97, pulse 83, respirations 16, temperature 98.2, sats 97% on room air. Weight is 170, height is 58-1/2 inches. Mcdonald score of 15. BMI is 36.1, temperature 98.2. GENERAL APPEARANCE: Calm, comfortable. HEENT: Short neck, crowding posterior pharynx. There is no goiter or neck masses. LUNGS: Clear to auscultation. HEART: Sounds are regular rate and rhythm. Normal S1, S2. No S3, no S4. No murmurs. ABDOMEN: Soft, nontender. No organomegaly. EXTREMITIES: No edema. No cyanosis, or clubbing. IMPRESSION: 1. Chronic hypersomnia. Rule out primary idiopathic hypersomnia. Doubt narcolepsy based on the negative MSLT and negative review of systems suggest any narcoleptic disease. The patient however, was given this diagnosis by Dr. Patrick many years back and the patient was given a combination of Provigil and Cymbalta. The treatment was suboptimal and the patient is still very sleepy. Note that initially she was on Celexa which got switched to Cymbalta knowing that the patient was having ongoing symptoms of depression. From the depression standpoint she is feeling better. She is not having any crying episodes or low mood. Her sleep remains quite fragmented and she wakes every 2 to 3 hours throughout the night. She is feeling non-refreshed. No hypnagogic hallucinations. No sleep paralysis. She reports only 2 episodes of sleep paralysis occurred many years back and this occurred when she was on temazepam. There is some weight gain over the past couple of years and is in order of 10 pounds. No substance abuse. No alcoholism. 2. Moderate persistent bronchial asthma, treated. 3. Hypertension. 4. Diabetes mellitus. 5. Coronary artery disease. 6. History of depression. PLAN: 1. Repeat a screening polysomnogram to define the pathology affecting this patient's sleep quality. 2. Narcolepsy is doubtful. 3. Hold Provigil for now and monitor symptoms. 4. We will follow.
== END | disposition home or self-care (01) ==
LOC: SLEEP 14:42
PROVIDERS: ATTEND Internal Medicine Critical Care Medicine
DX: G47.13 Recurrent hypersomnia (principal); G89.29 Other chronic pain; F32.9 Major depressive disorder, single episode, unspecified; Z79.899 Other long term (current) drug therapy

== ENCOUNTER → 2016-07-24 | Outpatient (CLI) | payer MEDICARE, OTHER | END | disposition home or self-care (01) | LOC: SLEEP 15:39 | PROVIDERS: ATTEND Internal Medicine Critical Care Medicine | DX: G47.33 Obstructive sleep apnea (adult) (pediatric) (principal) ==

== ENCOUNTER → 2016-09-11 | Outpatient (CLI) | payer MEDICARE, OTHER ==
--- NOTE | 2016-09-11 17:32 | PN ---
71 -year-old female patient coming to see me in follow up in the Sleep Center regarding her increased sleepiness. This patient is 71 and she has chronic fatigue and sleepiness. She has been evaluated by Dr. Patrick in the past and she has undergone previous PSG and secondary MSLT in 2013 and back then the patient was found to have no evidence of sleep breathing disorder. Her average AHI was 2.9 and her MSLT showed mean sleep latency of 9.4 hours without evidence of any REM onset sleep. Based on that, the patient was given Provigil , a total of 200 mg and later on 300 mg on a daily basis. She was having ongoing problems with sleepiness and for that reason I repeated a sleep study and yet again she did not have any evidence of any sleep breathing disorder. No oxygen desaturation. Never the less, the patient had severe periodic limb movements with arousals. Her periodic limb movement index was 72.9. She had delayed sleep onset and abnormal sleep architecture with depressed rapid eye movement, probably related to drug effect. She is known to have depression and chronic diabetes, hypertension and coronary artery disease. In terms of her restless legs, she was on Mirapex 1.5 mg and I have already added Klonopin 0.5 mg. The Klonopin made her a bit drowsy, however, it improved her sleep quality. She is waking up more refreshed during the day. She is still, however, requiring Provigil to improve her level of alertness. The rest of the medications are essentially the same for now. BP 133/77, pulse 102, respiratory rate 16. Weight is 160. Height is 4 feet 10 inches. BMI is 33.6. General appearance: Calm, comfortable. HEENT: Negative for JVD. No goiter. No neck masses. Lungs clear to auscultation. Heart sounds are regular rate and rhythm. Normal S1, S2. No S3, no S4. No murmurs. Abdomen soft, nontender. No organomegaly. Extremities: No edema. No cyanosis. No clubbing. IMPRESSION: 1. Primary snoring without evidence of sleep breathing disorder, AHI 1.8. 2. Severe periodic limb movements with arousals. 3. Restless leg syndrome. 4. Diabetes mellitus. 5. Peripheral neuropathy. 6. Chronic hypersomnia and fatigue. 7. Hypertension. 8. Coronary artery disease. 9. History of depression. PLAN: 1. Cut down the Klonopin to 0.25 mg on a nightly basis. 2. Continue Mirapex at 1.5 mg po daily. 3. Provigil 200 mg in the morning to help with level of alertness. 4. The rest of the medications will be kept unchanged. 5. Will see me back in six months in followup. CLARI
== END ==
LOC: SLEEP 11:22
PROVIDERS: ATTEND Internal Medicine Critical Care Medicine
DX: R06.83 Snoring (principal); G47.61 Periodic limb movement disorder; G25.81 Restless legs syndrome; E11.9 Type 2 diabetes mellitus without complications; I10 Essential (primary) hypertension; I25.10 Atherosclerotic heart disease of native coronary artery without angina pectoris; G47.10 Hypersomnia, unspecified; G62.9 Polyneuropathy, unspecified; F32.9 Major depressive disorder, single episode, unspecified

== ENCOUNTER → 2017-02-21 | Outpatient (CLI) | payer MEDICARE, OTHER ==
[2017-02-21 13:23] LABS: C Reactive Protein 6.8 mg/L (<10.0)
== END ==
LOC: LABWHC1 12:35
PROVIDERS: ATTEND Psychiatry & Neurology Neurology
DX: M13.0 Polyarthritis, unspecified (principal); M10.9 Gout, unspecified
CPT/HCPCS: 36415; 84550; 85652; 86140

== ENCOUNTER → 2017-03-06 | Outpatient (CLI) | payer MEDICARE, OTHER ==
--- NOTE | 2017-03-06 23:11 | MR ---
EXAMINATION TYPE: MR lumbar spine wo con DATE OF EXAM: 03/06/2017 COMPARISON: NONE HISTORY: Low Back Pain with Right leg pain x2 Weeks TECHNIQUE: Multiplanar, multisequence images of the lumbar spine were acquired. Lumbar vertebra have normal alignment. There is mild narrowing of lumbar disc spaces. There is no com pression fracture. There is posterior L5-S1 disc bulge in the midline. There is L1-2 posterior disc h erniation in the midline into the right side. There is no significant spinal stenosis. There is some facet arthropathy at levels from L1 to S1 with mild lateral recess stenosis. There is no lumbar julia nolan mass. I see no focal bone destruction. Sacroiliac joints appear intact. IMPRESSION: Mild multilevel spondylosis. Small posterior disc bulging and herniation at L5-S1 in the midline and L1-2 on the right side. No fracture. There is also posterior left-sided L2-3 disc bulge without signi ficant impingement on the neural foramen. No spinal stenosis.
== END | disposition home or self-care (01) ==
LOC: RADMRIMAIN 17:31
PROVIDERS: ATTEND Psychiatry & Neurology Neurology
DX: M47.816 Spondylosis without myelopathy or radiculopathy, lumbar region (principal); M51.26 Other intervertebral disc displacement, lumbar region; Z88.6 Allergy status to analgesic agent; Z88.5 Allergy status to narcotic agent
CPT/HCPCS: 72148

== ENCOUNTER 2017-04-18 17:20 | Inpatient (IN) | payer MEDICARE, OTHER ==
[2017-04-18] MEDS ORDERED: SODIUM CHLORIDE 0.9% 1,000 ML IV STA (17:48)
[2017-04-18] MEDS ORDERED: EPINEPHrine 1 MG/ML 1 ML AMP SQ STA (17:48)
[2017-04-18] MEDS ORDERED: ALBUTEROL NEBULIZED 2.5 MG/3 ML INHALATION STA (17:48)
[2017-04-18 18:08] LABS: Basophils % (A) 1 %; Eosinophils # (A) 0.2 k/uL (0-0.7); Eosinophils % (A) 4 %; HCT 35.6 % (34.0-46.0); HGB 11.8 gm/dL (11.4-16.0); Lymphocytes # (A) 0.5 k/uL (1.0-4.8); Lymphocytes % (A) 10 %; MCH 28.8 pg (25.0-35.0); MCHC 33.3 g/dL (31.0-37.0); MCV 86.4 fL (80.0-100.0); Mean Platelet Volume 7.5; Monocytes # (A) 0.3 k/uL (0-1.0); Monocytes % (A) 6 %; Neutrophils # (A) 3.8 k/uL (1.3-7.7); Neutrophils % (A) 77 %; Platelet Count 177 k/uL (150-450); RBC 4.12 m/uL (3.80-5.40); RDW 14.1 % (11.5-15.5); WBC 4.9 k/uL (3.8-10.6)
[2017-04-18 18:11] LABS: ALT 37 U/L (9-52); AST 38 U/L (14-36); Albumin 3.7 g/dL (3.5-5.0); Alkaline Phosphatase 84 U/L (38-126); Anion Gap 11 mmol/L; Blood Urea Nitrogen 15 mg/dL (7-17); Carbon Dioxide 29 mmol/L (22-30); Chloride 100 mmol/L (98-107); Glucose 179 mg/dL (74-99); Potassium 3.6 mmol/L (3.5-5.1); Sodium 140 mmol/L (137-145); Total Bilirubin 0.6 mg/dL (0.2-1.3); Total Protein 6.1 g/dL (6.3-8.2)
[2017-04-18 18:22] LABS: Creatine Kinase 463 U/L (30-135)
[2017-04-18 18:33] LABS: INR 0.9 (<1.2); Prothrombin Time 9.4 sec (9.0-12.0)
[2017-04-18 18:35] LABS: Troponin I <0.012 ng/mL (0.000-0.034)
[2017-04-18] MEDS ORDERED: DEXAMETHASONE SOD PHOSPHATE 10 MG/ML 1 ML VIAL IV STA (18:36)
[2017-04-18 18:38] LABS: Creatine Kinase MB 2.9 ng/mL (0.0-2.4)
--- NOTE | 2017-04-18 18:52 | XR ---
EXAMINATION TYPE: XR chest 2V DATE OF EXAM: 04/18/2017 COMPARISON: 05/26/2014 HISTORY: Cough TECHNIQUE: Frontal and lateral views of the chest are obtained. FINDINGS: There is no heart failure nor confluent pneumonic infiltrate. I see no definite pleural ef fusion. There are chest leads. Heart size is is probably normal. IMPRESSION: No active cardiopulmonary disease. Inspiration appears slightly less than last exam.
[2017-04-18] MEDS ORDERED: ALBUTEROL NEBULIZED (CONC) 5 MG, SODIUM CHLORIDE 0.9% NEBULIZ 3 ML INHALATION STA ×2 (19:34)
--- NOTE | 2017-04-18 19:43 | ED ---
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 Denies any headaches no neck stiffness has a shortness of breath has chest pain no pleuritic chest pain no abdominal pain no frequency urgency dysuria and denies any symptoms of TIA or CVA - Related Data Home Medications Medication Instructions Recorded Confirmed Atorvastatin [Lipitor] 80 mg PO DAILY 03/21/14 04/18/17 Baclofen 10 - 20 mg PO HS 03/21/14 04/18/17 Dicyclomine [Bentyl] 10 mg PO TID PRN 03/21/14 04/18/17 Fluticasone/Salmeterol [Advair 1 puff INHALATION RT-BID 03/21/14 04/18/17 250-50 Diskus] Hydrocodone/Acetaminophen [[place] 1 tab PO Q6HR PRN 03/21/14 04/18/17 7.5-325] Modafinil [Provigil] 100 mg PO TID 03/21/14 04/18/17 Pantoprazole Sodium [Protonix] 40 mg PO QAM 03/21/14 04/18/17 Pramipexole Di-HCl [Mirapex] 1 mg PO HS 03/21/14 04/18/17 Pregabalin [Lyrica] 200 mg PO TID 03/21/14 04/18/17 sitaGLIPtin PHOSPHATE [Januvia] 100 mg PO QAM 03/21/14 04/18/17 Albuterol Nebulized [Ventolin 2.5 mg INHALATION RT-Q6H 05/22/14 04/18/17 Nebulized] traMADol HCl [Ultram] 50 mg PO TID 05/22/14 04/18/17 Lidocaine 5% Patch [Lidoderm] 1 patch TOPICAL DAILY PRN 03/09/15 04/18/17 Montelukast [Singulair] 10 mg PO HS 04/11/15 04/18/17 Cholecalciferol [Vitamin D3] 1,000 unit PO DAILY 03/12/16 04/18/17 DULoxetine HCL [Cymbalta] 60 mg PO DAILY 03/12/16 04/18/17 Ezetimibe [Zetia] 10 mg PO HS 03/12/16 04/18/17 INSULIN LISPRO (For Pump) [humaLOG See Protocol SQ-PUMP CONTINUOUS 04/18/1703/07 (For Pump)] Previous Rx's Medication Instructions Recorded Clopidogrel Bisulfate [Plavix] 75 mg PO DAILY #30 tab 03/14/16 Allergies Allergy/AdvReac Type Severity Reaction Status Date / Time aspirin Allergy Swelling Verified 04/18/17 18:58 hydromorphone HCl Allergy Rash/Hives Verified 04/18/17 18:58 [From Dilaudid] ipratropium bromide Allergy Swelling Verified 04/18/17 18:58 [From Atrovent] meperidine HCl [From Demerol] Allergy Rash/Hives Verified 04/18/17 18:58 morphine Allergy Vomiting Verified 04/18/17 18:58 ibuprofen AdvReac Swelling Verified 04/18/17 18:58 metformin AdvReac Unknown Verified 04/18/17 18:58 trazodone AdvReac Unknown Verified 04/18/17 18:58 zolpidem tartrate AdvReac Hallucinati Verified 04/18/17 18:58 [From Ambien] ons MSG Allergy Rash/Hives Uncoded 04/18/17 17:31 Review of Systems ROS Statement: Those systems with pertinent positive or pertinent negative responses have been documented in the HPI. ROS Other: All systems not noted in ROS Statement are negative. Past Medical History Past Medical History: Asthma, Coronary Artery Disease (CAD), COPD, Diabetes Mellitus, Hyperlipidemia, Hypertension, Pneumonia Additional Past Medical History / Comment(s): IBS, narcolepsy with cataplexy History of Any Multi-Drug Resistant Organisms: None Reported Past Surgical History: Appendectomy, Breast Surgery, Heart Catheterization, Hernia Repair, Hysterectomy Additional Past Surgical History / Comment(s): BILATERAL CATARACTS. Rt lumpectomy - neg, D&C. Past Anesthesia/Blood Transfusion Reactions: No Reported Reaction Past Psychological History: Anxiety, Depression Smoking Status: Never smoker Past Alcohol Use History: None Reported Past Drug Use History: None Reported - Past Family History Mother Family Medical History: Hyperlipidemia, Hypertension Additional Family Medical History / Comment(s): ANEMIA Father Family Medical History: Cancer, Diabetes Mellitus Additional Family Medical History / Comment(s): Stroke General Exam - General Exam Comments Initial Comments: General: The patient is awake and alert, in severe distress using accessory muscles lesions are so audible back again here from across the room Skin: Skin is warm and dry and no rashes or lesions are noted. Eye: Pupils are equal, round and reactive to light, extra-ocular movements are intact; there is normal conjunctiva bilaterally. Ears, nose, mouth and throat: There are moist mucous membranes and no oral lesions. Neck: The neck is supple, there is no tenderness Cardiovascular: There is a regular rate and rhythm. No murmur, rub or gallop is appreciated. She is tachycardic Respiratory: To auscultation bilateral, severe wheezing Gastrointestinal: Soft, non-distended, non-tender abdomen without masses or organomegaly noted. There is no rebound or guarding present. Bowel sounds are unremarkable. Back: There is no tenderness to palpation in the midline. There is no obvious deformity. Musculoskeletal: Normal ROM, no tenderness, There is no pedal edema. There is no calf tenderness or swelling. No cords were appreciated. Neurological: CN II-XII intact, Cranial nerves III through XII are intact. There are no obvious motor or sensory deficits. Coordination appears grossly intact. Speech is normal. Psychiatric: Cooperative, appropriate mood & affect, normal judgment. Limitations: no limitations Course Vital Signs 04/18/17 04/18/17 04/18/17 17:28 17:57 18:16 Temperature 98.2 F Pulse Rate 106 H 98 105 H Respiratory 26 H Rate Blood Pressure 122/71 O2 Sat by Pulse 95 Oximetry 04/18/17 04/18/17 04/18/17 18:22 18:51 19:12 Temperature Pulse Rate 107 H 109 H 100 Respiratory 24 24 24 Rate Blood Pressure 154/63 140/99 130/70 O2 Sat by Pulse 94 L 96 97 Oximetry EKG is a sinus tachycardia ventricular rate is 1 or 2 MI interval is 150 QRS duration is 76 QT/QTC 348/453 review of this EKG does not reveal any ST elevation or ST depression Medical Decision Making - Lab Data Result diagrams: 04/18/17 17:44 04/18/17 17:44 Lab Results 04/18/17 04/18/17 04/18/17 Range/Units 17:44 17:44 17:44 WBC 4.9 (3.8-10.6) k/uL RBC 4.12 (3.80-5.40) m/uL Hgb 11.8 (11.4-16.0) gm/dL Hct 35.6 (34.0-46.0) % MCV 86.4 (80.0-100.0) fL MCH 28.8 (25.0-35.0) pg MCHC 33.3 (31.0-37.0) g/dL RDW 14.1 (11.5-15.5) % Plt Count 177 (150-450) k/uL Neutrophils % 77 % Lymphocytes % 10 % Monocytes % 6 % Eosinophils % 4 % Basophils % 1 % Neutrophils # 3.8 (1.3-7.7) k/uL Lymphocytes # 0.5 L (1.0-4.8) k/uL Monocytes # 0.3 (0-1.0) k/uL Eosinophils # 0.2 (0-0.7) k/uL Basophils # 0.0 (0-0.2) k/uL PT (9.0-12.0) sec INR (<1.2) APTT (22.0-30.0) sec Sodium 140 (137-145) mmol/L Potassium 3.6 (3.5-5.1) mmol/L Chloride 100 (98-107) mmol/L Carbon Dioxide 29 (22-30) mmol/L Anion Gap 11 mmol/L BUN 15 (7-17) mg/dL Creatinine 0.80 (0.52-1.04) mg/dL Est GFR (MDRD) Af Amer >60 (>60 ml/min/1.73 sqM) Est GFR (MDRD) Non-Af >60 (>60 ml/min/1.73 sqM) Glucose 179 H (74-99) mg/dL Calcium 9.0 (8.4-10.2) mg/dL Total Bilirubin 0.6 (0.2-1.3) mg/dL AST 38 H (14-36) U/L ALT 37 (9-52) U/L Alkaline Phosphatase 84 (38-126) U/L Total Creatine Kinase 463 H (30-135) U/L CK-MB (CK-2) 2.9 H* (0.0-2.4) ng/mL CK-MB (CK-2) Rel Index 0.6 Troponin I <0.012 (0.000-0.034) ng/mL NT-Pro-B Natriuret Pep pg/mL Total Protein 6.1 L (6.3-8.2) g/dL Albumin 3.7 (3.5-5.0) g/dL 04/18/17 04/18/17 Range/Units 17:44 17:44 WBC (3.8-10.6) k/uL RBC (3.80-5.40) m/uL Hgb (11.4-16.0) gm/dL Hct (34.0-46.0) % MCV (80.0-100.0) fL MCH (25.0-35.0) pg MCHC (31.0-37.0) g/dL RDW (11.5-15.5) % Plt Count (150-450) k/uL Neutrophils % % Lymphocytes % % Monocytes % % Eosinophils % % Basophils % % Neutrophils # (1.3-7.7) k/uL Lymphocytes # (1.0-4.8) k/uL Monocytes # (0-1.0) k/uL Eosinophils # (0-0.7) k/uL Basophils # (0-0.2) k/uL PT 9.4 (9.0-12.0) sec INR 0.9 (<1.2) APTT 24.0 (22.0-30.0) sec Sodium (137-145) mmol/L Potassium (3.5-5.1) mmol/L Chloride (98-107) mmol/L Carbon Dioxide (22-30) mmol/L Anion Gap mmol/L BUN (7-17) mg/dL Creatinine (0.52-1.04) mg/dL Est GFR (MDRD) Af Amer (>60 ml/min/1.73 sqM) Est GFR (MDRD) Non-Af (>60 ml/min/1.73 sqM) Glucose (74-99) mg/dL Calcium (8.4-10.2) mg/dL Total Bilirubin (0.2-1.3) mg/dL AST (14-36) U/L ALT (9-52) U/L Alkaline Phosphatase (38-126) U/L Total Creatine Kinase (30-135) U/L CK-MB (CK-2) (0.0-2.4) ng/mL CK-MB (CK-2) Rel Index Troponin I (0.000-0.034) ng/mL NT-Pro-B Natriuret Pep 59 pg/mL Total Protein (6.3-8.2) g/dL Albumin (3.5-5.0) g/dL Critical Care Time Total Critical Care Time: 45 Critical Care Time: On arrival she was wheezing severely using accessory muscles will give her some Decadron and 9F treatments I totally affected her very L after Decadron she fell that she was quite quite jumpy restless but then after 10 minutes it resolved labs are reviewed troponin and EKG are unremarkable compress metabolic panel is good CBC had no elevated white count is 6 to rule getting pneumonia EKG rule out any myocardial infarction but today she is really struggling this acute exacerbation of COPD and asthma at that point I did try appendectomy 0.3 mg subcu without great deal of benefit I am trying magnesium now 2 g over 30 minutes and I have ordered ABGs as well as a BiPAP the patient is breathing she is not strong she is given need intubation and will primary best way She be intubated if indicated indicated spoke with Dr. Brice's group she be admitted to Dr. Brice service and Dr. Oro be consult Disposition Clinical Impression: Respiratory distress, Acute exacerbation of COPD with asthma Disposition: ADMITTED IP TO THIS HOSP Condition: Fair Referrals: Chris Caicedo DO [Primary Care Provider] - 1-2 days
[2017-04-18] MEDS ORDERED: LIDOCAINE 5% PATCH TOPICAL PRN (19:47)
[2017-04-18] MEDS ORDERED: HYDROcodone/APAP 7.5-325MG 1 EACH TAB PO PRN (19:47)
[2017-04-18] MEDS ORDERED: DICYCLOMINE 10 MG CAP PO PRN (19:47)
[2017-04-18] MEDS: MAGNESIUM SULFATE-D5W PMX 1 GM in DEXTROSE/WATER 1 100ML.BAG IVPB SCH ×2 (19:52→22:00)
[2017-04-18] MEDS ORDERED: INSULIN ASPART 100 UNIT/ML 1 ML 10 ML VIAL SQ PRN (20:17)
[2017-04-18] MEDS ORDERED: INSPUCOR MISCELLANE PRN (20:17)
[2017-04-18 20:22] LABS: ABG Base Excess 3.4 mmol/L; ABG HCO3 27 mmol/L (21-25); ABG Oxygen Saturation 97.1 % (94-97); ABG PCO2 38 mmHg (35-45); ABG PH 7.47 (7.35-7.45); ABG PO2 132 mmHg (83-108); ABG TCO2 28 mmol/L (19-24)
[2017-04-18] MEDS: ALBUTEROL NEBULIZED 2.5 MG/3 ML INHALATION SCH (20:41)
[2017-04-18 20:42] VITALS: BMI 31.3
[2017-04-18] MEDS: SYMBICORT 80-4.5 MCG INHALER INHALATION SCH (20:47)
[2017-04-18] MEDS: traMADol 50 MG TAB PO SCH (20:50)
[2017-04-18] MEDS: PREGABALIN 100 MG CAP PO SCH (20:50)
[2017-04-18] MEDS: BACLOFEN 10 MG TAB PO SCH (20:51)
[2017-04-18] MEDS: MONTELUKAST 10 MG TAB PO SCH (20:51)
[2017-04-18] MEDS: EZETIMIBE 10 MG TAB PO SCH (20:51)
[2017-04-18] MEDS: PRAMIPEXOLE 1 MG TAB PO SCH (20:51)
[2017-04-18 21:22] LABS: Glucose,Whole Blood 257 mg/dL (75-99)
[2017-04-18] MEDS: LEVOFLOXACIN 500 MG TAB PO SCH (22:00)
[2017-04-18] MEDS: INSULIN PUMP MEAL BOLUS 1 UNIT MISC MISCELLANE SCH (22:07)
[2017-04-18] MEDS: methylPREDNISolone SOD SUCCI 125 MG/2 ML VIAL IV SCH (23:35)
[2017-04-19] MEDS: ALBUTEROL NEBULIZED 2.5 MG/3 ML INHALATION SCH ×2 (01:29→09:36)
[2017-04-19 06:02] LABS: Glucose,Whole Blood 257 mg/dL (75-99)
[2017-04-19] MEDS: methylPREDNISolone SOD SUCCI 125 MG/2 ML VIAL IV SCH ×3 (06:30→17:05)
[2017-04-19] MEDS: PANTOPRAZOLE 40 MG TABLET PO SCH (06:31)
[2017-04-19] MEDS: INSULIN PUMP MEAL BOLUS 1 UNIT MISC MISCELLANE SCH ×4 (06:36→21:36)
[2017-04-19 06:45] LABS: Anion Gap 9 mmol/L; Blood Urea Nitrogen 18 mg/dL (7-17); Calcium 9.1 mg/dL (8.4-10.2); Carbon Dioxide 29 mmol/L (22-30); Chloride 100 mmol/L (98-107); Glucose 263 mg/dL (74-99); Magnesium 2.2 mg/dL (1.6-2.3); Potassium 4.4 mmol/L (3.5-5.1); Sodium 138 mmol/L (137-145)
[2017-04-19] MEDS: ATORVASTATIN 80 MG TAB PO SCH (08:45)
[2017-04-19] MEDS: LINAGLIPTIN 5 MG TABLET PO SCH (08:46)
[2017-04-19] MEDS: CLOPIDOGREL 75 MG TAB PO SCH (08:46)
[2017-04-19] MEDS: DULoxetine HCL 60 MG CAPSULE.DR PO SCH (08:47)
[2017-04-19] MEDS: traMADol 50 MG TAB PO SCH ×3 (08:50→21:35)
[2017-04-19] MEDS ORDERED: LEVOFLOXACIN 500 MG TAB PO SCH (09:00)
[2017-04-19] MEDS: PREGABALIN 100 MG CAP PO SCH ×3 (09:11→21:35)
[2017-04-19] MEDS: MODAFINIL 100 MG TAB PO SCH ×3 (09:11→17:08)
[2017-04-19] MEDS: SYMBICORT 80-4.5 MCG INHALER INHALATION SCH (09:37)
--- NOTE | 2017-04-19 11:52 | P.CNPUL ---
History of Present Illness Consult date: 04/19/17 Reason for consult: dyspnea, cough, COPD, hypoxemia Chief complaint: Shortness of breath History of present illness: Consult dated 04/19/2017 This is a 71-year-old female well-known to our service. She sees my partner in the office. The patient comes in with complaints of increasing shortness of breath. His been going on for 3-4 days prior to admission. In addition she had some chest pain and pain with deep breathing. No fever or chills. A bit of a cough but not able to produce much or any phlegm. The patient does have a history of multiple admissions to the hospital for COPD exacerbation. She denies any chest pain currently. No palpitations. Not coughing up any blood. The patient denies any GI or complaints. She does have a history of CAD diabetes hyperlipidemia hypertension pneumonia. Bowel syndrome and narcolepsy with cataplexy appendectomy hernia repair heart catheterization bilateral cataract surgery and a right-sided lumpectomy. She has also had a D and C in the past. The patient is feeling a bit better today than yesterday. Still very short of breath. Review of Systems A 12 point review of systems is positive for shortness of breath chest tightness wheezing cough. Minimal phlegm production. A sharp chest pain noted on deep breathing. Mostly pleuritic in nature. Chest x-ray is stable and shows no evidence of pneumonia. Past Medical History Past Medical History: Asthma, Coronary Artery Disease (CAD), COPD, Diabetes Mellitus, Hyperlipidemia, Hypertension, Pneumonia Additional Past Medical History / Comment(s): IBS, narcolepsy with cataplexy History of Any Multi-Drug Resistant Organisms: None Reported Past Surgical History: Appendectomy, Breast Surgery, Heart Catheterization, Hernia Repair, Hysterectomy Additional Past Surgical History / Comment(s): BILATERAL CATARACTS. Rt lumpectomy - neg, D&C. Past Anesthesia/Blood Transfusion Reactions: No Reported Reaction Past Psychological History: Anxiety, Depression Smoking Status: Never smoker Past Alcohol Use History: None Reported Past Drug Use History: None Reported - Past Family History Mother Family Medical History: Hyperlipidemia, Hypertension Additional Family Medical History / Comment(s): ANEMIA Father Family Medical History: Cancer, Diabetes Mellitus Additional Family Medical History / Comment(s): Stroke Medications and Allergies Home Medications Medication Instructions Recorded Confirmed Type Atorvastatin [Lipitor] 80 mg PO DAILY 03/21/14 04/18/17 History Baclofen 10 - 20 mg PO HS 03/21/14 04/18/17 History Dicyclomine [Bentyl] 10 mg PO TID PRN 03/21/14 04/18/17 History Fluticasone/Salmeterol [Advair 1 puff INHALATION RT-BID 03/21/14 04/18/17 History 250-50 Diskus] Hydrocodone/Acetaminophen [[place] 1 tab PO Q6HR PRN 03/21/14 04/18/17 History 7.5-325] Modafinil [Provigil] 100 mg PO TID 03/21/14 04/18/17 History Pantoprazole Sodium [Protonix] 40 mg PO QAM 03/21/14 04/18/17 History Pramipexole Di-HCl [Mirapex] 1 mg PO HS 03/21/14 04/18/17 History Pregabalin [Lyrica] 200 mg PO TID 03/21/14 04/18/17 History sitaGLIPtin PHOSPHATE [Januvia] 100 mg PO QAM 03/21/14 04/18/17 History Albuterol Nebulized [Ventolin 2.5 mg INHALATION RT-Q6H 05/22/14 04/18/17 History Nebulized] traMADol HCl [Ultram] 50 mg PO TID 05/22/14 04/18/17 History Lidocaine 5% Patch [Lidoderm] 1 patch TOPICAL DAILY PRN 03/09/15 04/18/17 History Montelukast [Singulair] 10 mg PO HS 04/11/15 04/18/17 History Cholecalciferol [Vitamin D3] 1,000 unit PO DAILY 03/12/16 04/18/17 History DULoxetine HCL [Cymbalta] 60 mg PO DAILY 03/12/16 04/18/17 History Ezetimibe [Zetia] 10 mg PO HS 03/12/16 04/18/17 History Clopidogrel Bisulfate [Plavix] 75 mg PO DAILY #30 tab 03/14/16 04/18/17 Rx INSULIN LISPRO (For Pump) [humaLOG See Protocol SQ-PUMP CONTINUOUS 04/18/1703/07 History (For Pump)] Allergies Allergy/AdvReac Type Severity Reaction Status Date / Time aspirin Allergy Swelling Verified 04/18/17 18:58 hydromorphone HCl Allergy Rash/Hives Verified 04/18/17 18:58 [From Dilaudid] ipratropium bromide Allergy Swelling Verified 04/18/17 18:58 [From Atrovent] meperidine HCl [From Demerol] Allergy Rash/Hives Verified 04/18/17 18:58 morphine Allergy Vomiting Verified 04/18/17 18:58 ibuprofen AdvReac Swelling Verified 04/18/17 18:58 metformin AdvReac Unknown Verified 04/18/17 18:58 trazodone AdvReac Unknown Verified 04/18/17 18:58 zolpidem tartrate AdvReac Hallucinati Verified 04/18/17 18:58 [From Ambien] ons MSG Allergy Rash/Hives Uncoded 04/18/17 17:31 Physical Exam Osteopathic Statement: *. No significant issues noted on an osteopathic structural exam other than those noted in the History and Physical/Consult. Vitals: Vital Signs Temp Pulse Pulse Resp BP BP Pulse Ox 04/19/17 11:12 98.6 F 79 22 120/68 95 04/19/17 09:53 92 04/19/17 09:37 88 04/19/17 07:43 79 20 122/71 96 04/19/17 03:57 86 20 104/62 98 04/19/17 01:39 101 H 18 04/19/17 01:29 96 18 04/19/17 00:00 82 22 103/59 96 04/18/17 20:53 97 22 115/63 97 04/18/17 20:52 100 04/18/17 20:36 100 04/18/17 20:04 98 F 84 18 136/72 99 04/18/17 19:12 100 24 130/70 97 04/18/17 18:51 109 H 24 140/99 96 04/18/17 18:22 107 H 24 154/63 94 L 04/18/17 18:16 105 H 04/18/17 17:57 98 04/18/17 17:28 98.2 F 106 H 26 H 122/71 95 Intake and Output 04/18/17 04/19/17 04/19/17 22:59 06:59 14:59 Intake Total 560 Balance 560 Intake: Oral 560 Other: Voiding Method Bedside Commode Bedside Commode # Voids 1 1 Weight 68.039 kg 77 kg No acute distress, oriented 3. Nasal O2 in place. HEENT examination is grossly unremarkable. Mucous membranes are moist. No oral lesions. Neck supple. Full range of motion. No adenopathy thyromegaly or neck vein distention. Cardiovascular examination reveals regular rhythm rate. S1-S2 normal. No S3 or S4. No discernible murmur noted. Lungs reveal bilateral diminished breath sounds with bilateral basilar wheezes. A few scattered rhonchi. Breath sounds are equal bilaterally but reduced. Slight prolongation noted. Abdomen soft bowel sounds are heard. No masses or tenderness. Extremities are intact. No cyanosis clubbing or edema. Skin is without rash or lesion. Neurologic examination is brief but nonfocal. Results - Laboratory Findings CBC and BMP: 04/18/17 17:44 04/19/17 06:05 ABG ABG pH 7.47 (7.35-7.45) H 04/18/17 20:08 ABG pCO2 38 mmHg (35-45) 04/18/17 20:08 ABG pO2 132 mmHg (83-108) H 04/18/17 20:08 ABG O2 Saturation 97.1 % (94-97) H 04/18/17 20:08 PT/INR, D-dimer PT 9.4 sec (9.0-12.0) 04/18/17 17:44 INR 0.9 (<1.2) 04/18/17 17:44 Abnormal lab findings: Abnormal Labs 04/18/17 04/18/17 04/18/17 17:44 17:44 17:44 Lymphocytes # 0.5 L ABG pH ABG pO2 ABG HCO3 ABG Total CO2 ABG O2 Saturation BUN Glucose 179 H POC Glucose (mg/dL) AST 38 H Total Creatine Kinase 463 H CK-MB (CK-2) 2.9 H* Total Protein 6.1 L 04/18/17 04/18/17 04/19/17 20:08 21:20 05:52 Lymphocytes # ABG pH 7.47 H ABG pO2 132 H ABG HCO3 27 H ABG Total CO2 28 H ABG O2 Saturation 97.1 H BUN Glucose POC Glucose (mg/dL) 257 H 257 H AST Total Creatine Kinase CK-MB (CK-2) Total Protein 04/19/17 06:05 Lymphocytes # ABG pH ABG pO2 ABG HCO3 ABG Total CO2 ABG O2 Saturation BUN 18 H Glucose 263 H POC Glucose (mg/dL) AST Total Creatine Kinase CK-MB (CK-2) Total Protein - Diagnostic Findings Chest x-ray: image reviewed (Patient interviewed and examined. Labs x-rays a medications are reviewed.) Assessment and Plan Assessment: Assessment COPD/asthma exacerbation complicated by purulent tracheobronchitis History of CAD History of diabetes mellitus History of hypertension History of hyperlipidemia History of narcolepsy/cataplexy History of irritable bowel syndrome Lifelong nonsmoker Plan: Plan dated 04/19/2017 The patient does not look overly ill. I'll review her medications. Chest x- ray did not show any infiltrates. She should be on a short acting beta agonist , short acting muscarinic antagonist, a long-acting beta agonist, and inhaled corticosteroid. In addition, the patient would probably benefit from a short course of oral antibiotics and systemic corticosteroids. When she gets turned around, we'll have her follow-up in the office with our partner. Time with Patient: Greater than 30
[2017-04-19] MEDS ORDERED: IPRATROPIUM-ALBUTEROL 3 ML NEB INHALATION PRN (11:53)
[2017-04-19] MEDS: CHOLECALCIFEROL 1,000 UNIT TAB PO SCH (11:58)
[2017-04-19 12:06] LABS: Glucose,Whole Blood 212 mg/dL (75-99)
[2017-04-19] MEDS: IPRATROPIUM-ALBUTEROL 3 ML NEB INHALATION SCH ×3 (13:03→19:53)
--- NOTE | 2017-04-19 13:24 | CDI ---
Last Revision, January 2017 Documentation Clarification Form Date: 04/19/2017 1:06:00 PM From: Mary Beth Boyce, LOBO, CCDS Admit Date: 04/18/2017 7:43:00 PM Patient Name: Saira Juarez I Visit Number: [id number] Discharge Date: ATTENTION: The Clinical Documentation Specialists (CDI) and [facility] Coding Staff appreciate your assistance in clarifying documentation. Please respond to the clarification below the line at the bottom and electronically sign. The CDI & [facility] Coding staff will review the response and follow-up if needed. Please note: Queries are made part of the Legal Health Record. If you have any questions, please contact the author of this message via ITS. Dr. Graeme Cardona: Per your pulmonary consult, the patient is diagnosed with COPD/Asthma exacerbation complicated by purulent tracheobronchitis. Patient Hx: COPD, Asthma w/exacerbations, CAD, DM w/pump, Hypertension and Pneumonia. Clinical Indicators: Radiology: CXR: No active cardiopulmonary disease. Vital Signs: T 98.2, P 106^, R 26^ (sob, cough), BP 122/71, PO 95 RA/2Lnc Other Clinical Indicators: Severe wheezing, in severe distress using accessory muscles. Treatment: ABGs, Formoterol INH, Pulmicort INH, Albuterol INH, IV Solumedrol. In your professional opinion, can you please specify the asthma diagnosis, if known? With: Acute Exacerbation Status asthmaticus Acute lower respiratory infection COPD (specify with or without exacerbation) Chronic obstructive bronchitis Other, please specify or Unable to determine Severity: Mild intermittent Mild persistent Moderate persistent Severe persistent Other, please specify or Unable to determine Form or Type: Cough variant Exercise induced bronchospasm Extrinsic allergic Idiosyncratic Intrinsic nonallergic Late-onset Mixed Other, please specify or Unable to determine Please continue to document in your progress notes and discharge summary in order to capture severity of illness and risk of mortality. Include clinical findings that support your diagnosis. MTDD
[2017-04-19 14:14] LABS: Hemoglobin A1C 7.1 % (4.0-6.0)
[2017-04-19 16:33] LABS: Glucose,Whole Blood 197 mg/dL (75-99)
[2017-04-19] MEDS: FORMOTEROL FUMARATE 20 MCG/2 ML NEBU INHALATION SCH (19:53)
[2017-04-19] MEDS: BUDESONIDE 1 MG/2 ML NEBU INHALATION SCH (19:53)
--- NOTE | 2017-04-19 20:07 | HP ---
HISTORY AND PHYSICAL CHIEF COMPLAINT: Shortness of breath. HISTORY OF PRESENT ILLNESS: This 71-year-old woman with a past history of COPD, history of diabetes, history of asthma, CAD, history of hyperlipidemia, history of pneumonia, history of GERD being followed by Dr. Caicedo in the outpatient setting is not feeling well over the past several days. The patient was complaining of shortness of breath at least aggravated for the last 4 days and the shortness of breath was continuing to be present. The patient came to [facility] and was admitted for further evaluation and treatment. There is no history of any fever, rigors. No history of headache, loss of consciousness, seizures at this time. PAST MEDICAL HISTORY: History of asthma, history of COPD, history of CAD, diabetes mellitus type 2, hypertension, hyperlipidemia, history of pneumonia, history of narcolepsy and cataplexy, history of appendectomy, anxiety, depression. MEDICATIONS: Home medications are: 1. Insulin Lispro before meals. 2. Ultram 50 mg p.o. t.i.d. 3. Januvia 100 mg p.o. q.a.m. 4. Lyrica 200 mg p.o. t.i.d. 6. Protonix 40 mg q.h.s. 7. Singular 10 mg q.h.s. 8. Provigil 100 mg p.o. t.i.d. 9. Lidoderm patch 5% patch, 1 application topically daily p.r.n. 10.[place] 7.5 every 6 hours as needed. 11.Advair 250/50 1 puff b.i.d. 12.Zetia 10 mg q.h.s. 13.Bentyl 10 mg t.i.d. p.r.n. 14.Cymbalta 60 mg p.o. daily. 15.Plavix 75 mg p.o. daily. 16.Vitamin D3 1000 daily. 17.Baclofen 20 mg p.o. q.h.s. 18.Lipitor 80 mg daily. 19.Ventolin 2.5 every 6 hours p.r.n. ALLERGIES: ASPIRIN, DILAUDID, DEMEROL, MORPHINE, IBUPROFEN, METFORMIN, TRAZODONE, AMBIEN, MSG. FAMILY HISTORY: Hypertension, hyperlipidemia, history of anemia. SOCIAL HISTORY: No history of smoking. No history of alcohol. REVIEW OF SYSTEMS: ENT: No diminished hearing, diminished vision. CARDIOVASCULAR: No angina, palpitations. RESPIRATORY: As mentioned earlier. GI: No nausea or vomiting. : No dysuria. NERVOUS: No numbness or weakness. ALLERGY/IMMUNOLOGY: No asthma or hay fever. MUSCULOSKELETAL: As mentioned earlier. HEMATOLOGY/ONCOLOGY: No history of anemia. ENDOCRINE: No history of diabetes, hypothyroidism. CONSTITUTIONAL: As mentioned earlier. DERMATOLOGY: Negative. RHEUMATOLOGY: Negative. PSYCHIATRY: As mentioned earlier. PHYSICAL EXAMINATION: Alert and oriented x3. Pulse is 80, blood pressure 132/68, respiration 22, temperature 98.6, pulse ox 94% on 4L. HEENT: Conjunctivae normal. NECK: No jugular venous distention. CARDIOVASCULAR: S1, S2 muffled. RESPIRATORY: Breath sounds diminished in the bases. A few scattered rhonchi and crackles. ABDOMEN: Soft, nontender. No mass palpable. LEGS: No edema. No swelling. NERVOUS SYSTEM: Higher functions as mentioned earlier. Moves all 4 limbs. No focal motor or sensory deficits. LYMPHATIC: No lymphadenopathy in neck or axillae. SKIN: No ulcer, rash or bleeding. LAB STUDIES: At this time show sodium 132, potassium 4.4. Accu-Cheks are noted. Otherwise, ABGs show pH of 7.47. The CK is 463. Troponins are negative. ASSESSMENT: 1. Chronic obstructive pulmonary disease exacerbation with acute purulent tracheobronchitis. 2. Asthma and chronic obstructive pulmonary disease. 3. History of coronary artery disease. 4. Diabetes mellitus type 2. 5. Hypertension. 6. Hyperlipidemia. 8. Narcolepsy and cataplexy. 9. History of appendectomy. 10.History of breast surgery. 11.History of anxiety. 12.History of depression. RECOMMENDATIONS AND DISCUSSION: In this 71-year-old woman who presented with multiple complex medical issues, will monitor the patient closely. Continue the current medical management and symptomatic treatment. Otherwise at this time, I recommend bronchodilators, steroids, monitor blood sugars closely. Consult Dr. Cardona. Guarded prognosis because of multiple complex medical issues. Further recommendations to follow. A copy of the dictation will be forwarded to Dr. Caicedo, who is the primary physician. MMODL / IJN: [id number] / [facility]
[2017-04-19 20:43] LABS: Glucose,Whole Blood 235 mg/dL (75-99)
[2017-04-19] MEDS: LEVOFLOXACIN 500 MG TAB PO SCH (21:35)
[2017-04-19] MEDS: EZETIMIBE 10 MG TAB PO SCH (21:35)
[2017-04-19] MEDS: MONTELUKAST 10 MG TAB PO SCH (21:35)
[2017-04-19] MEDS: BACLOFEN 10 MG TAB PO SCH (21:36)
[2017-04-19] MEDS: PRAMIPEXOLE 1 MG TAB PO SCH (21:36)
[2017-04-20] MEDS: methylPREDNISolone SOD SUCCI 125 MG/2 ML VIAL IV SCH ×5 (00:24→23:44)
[2017-04-20 06:33] LABS: Glucose,Whole Blood 222 mg/dL (75-99)
[2017-04-20] MEDS: PANTOPRAZOLE 40 MG TABLET PO SCH (06:53)
[2017-04-20 07:04] LABS: Basophils % (A) 0 %; Eosinophils % (A) 0 %; HCT 35.2 % (34.0-46.0); HGB 11.7 gm/dL (11.4-16.0); Lymphocytes # (A) 0.5 k/uL (1.0-4.8); Lymphocytes % (A) 4 %; MCH 28.8 pg (25.0-35.0); MCHC 33.2 g/dL (31.0-37.0); MCV 86.7 fL (80.0-100.0); Mean Platelet Volume 7.9; Monocytes # (A) 0.3 k/uL (0-1.0); Monocytes % (A) 3 %; Neutrophils # (A) 10.3 k/uL (1.3-7.7); Neutrophils % (A) 92 %; Platelet Count 230 k/uL (150-450); RBC 4.06 m/uL (3.80-5.40); RDW 13.8 % (11.5-15.5); WBC 11.2 k/uL (3.8-10.6)
[2017-04-20 07:13] LABS: Anion Gap 10 mmol/L; Blood Urea Nitrogen 20 mg/dL (7-17); Calcium 9.5 mg/dL (8.4-10.2); Carbon Dioxide 27 mmol/L (22-30); Chloride 100 mmol/L (98-107); Glucose 221 mg/dL (74-99); Potassium 4.3 mmol/L (3.5-5.1); Sodium 137 mmol/L (137-145)
[2017-04-20] MEDS: INSULIN PUMP MEAL BOLUS 1 UNIT MISC MISCELLANE SCH ×4 (07:32→21:38)
[2017-04-20] MEDS: IPRATROPIUM-ALBUTEROL 3 ML NEB INHALATION SCH ×4 (09:04→21:01)
[2017-04-20] MEDS: BUDESONIDE 1 MG/2 ML NEBU INHALATION SCH ×2 (09:04→21:01)
[2017-04-20] MEDS: FORMOTEROL FUMARATE 20 MCG/2 ML NEBU INHALATION SCH ×2 (09:05→21:01)
[2017-04-20] MEDS: CLOPIDOGREL 75 MG TAB PO SCH (09:48)
[2017-04-20] MEDS: LINAGLIPTIN 5 MG TABLET PO SCH (09:48)
[2017-04-20] MEDS: DULoxetine HCL 60 MG CAPSULE.DR PO SCH (09:48)
[2017-04-20] MEDS: ATORVASTATIN 80 MG TAB PO SCH (09:49)
[2017-04-20] MEDS: traMADol 50 MG TAB PO SCH ×3 (10:07→20:49)
[2017-04-20] MEDS: PREGABALIN 100 MG CAP PO SCH ×3 (10:07→20:49)
[2017-04-20 12:18] LABS: Glucose,Whole Blood 304 mg/dL (75-99)
[2017-04-20] MEDS: CHOLECALCIFEROL 1,000 UNIT TAB PO SCH (12:46)
[2017-04-20] MEDS: MODAFINIL 100 MG TAB PO SCH ×3 (12:56→17:55)
--- NOTE | 2017-04-20 16:18 | P.PN ---
Subjective Progress Note Date: 04/20/17 Principal diagnosis: Acute exacerbation of chronic obstructive pulmonary disease, complicated by purulent tracheobronchitis. Consult dated 04/19/2017 This is a 71-year-old female well-known to our service. She sees my partner in the office. The patient comes in with complaints of increasing shortness of breath. His been going on for 3-4 days prior to admission. In addition she had some chest pain and pain with deep breathing. No fever or chills. A bit of a cough but not able to produce much or any phlegm. The patient does have a history of multiple admissions to the hospital for COPD exacerbation. She denies any chest pain currently. No palpitations. Not coughing up any blood. The patient denies any GI or complaints. She does have a history of CAD diabetes hyperlipidemia hypertension pneumonia. Bowel syndrome and narcolepsy with cataplexy appendectomy hernia repair heart catheterization bilateral cataract surgery and a right-sided lumpectomy. She has also had a D and C in the past. The patient is feeling a bit better today than yesterday. Still very short of breath. Progress note dated 04/20/2017 The patient is seen again today selective care unit. She is awake and alert in no acute distress. She is doing quite a bit better today as compared to yesterday. Still not back to her baseline. She is dyspneic with minimal exertion. She still has coughing episodes. She had utilized BiPAP a little bit this morning. Presently she is sitting up in bed. She is maintaining good O2 saturations in the upper 90s on 3 L/m per nasal cannula. Currently afebrile. Hemodynamically stable. Currently 11.2. Hemoglobin 11.7. Creatinine 0.60. Objective - Vital Signs Vital signs: Vital Signs Temp 97.2 F L 04/20/17 11:50 Pulse 78 04/20/17 16:03 Resp 17 04/20/17 11:50 BP 121/57 04/20/17 11:50 Pulse Ox 97 04/20/17 11:50 Intake & Output 04/19/17 04/20/17 04/20/17 18:59 06:59 18:59 Intake Total 1004 800 250 Output Total 400 Balance 1004 400 250 Weight 73.8 kg Intake: IV 800 Sodium Chloride 0.9% 1, 800 000 ml @ 100 mls/hr IV . Q10H STA Rx#:[id number] Oral 1004 250 Output: Urine 400 Other: Voiding Method Bedside Commode Bedside Commode Bedside Commode # Voids 3 - Exam GENERAL EXAM: Alert, active, comfortable in no apparent distress. HEAD: Normocephalic. EYES: Normal reaction of pupils, equal size. NOSE: Clear with pink turbinates. THROAT: No erythema or exudates. NECK: No masses, no JVD. CHEST: No chest wall deformity. LUNGS: Equal air entry with bilateral end expiratory wheeze. Diminished. CVS: S1 and S2 normal with no audible murmur, regular rhythm. ABDOMEN: No hepatosplenomegaly, normal bowel sounds, no guarding or rigidity. SPINE: No scoliosis or deformity SKIN: No rashes CENTRAL NERVOUS SYSTEM: No focal deficits, tone is normal in all 4 extremities. EXTREMITIES: There is no peripheral edema. No clubbing, no cyanosis. Peripheral pulses are intact. - Labs CBC & Chem 7: 04/20/17 06:31 04/20/17 06:31 Labs: Abnormal Lab Results - Last 24 Hours (Table) 04/19/17 04/19/17 04/20/17 Range/Units 16:26 20:38 06:26 WBC (3.8-10.6) k/uL Neutrophils # (1.3-7.7) k/uL Lymphocytes # (1.0-4.8) k/uL BUN (7-17) mg/dL Glucose (74-99) mg/dL POC Glucose (mg/dL) 197 H 235 H 222 H (75-99) mg/dL 04/20/17 04/20/17 04/20/17 Range/Units 06:31 06:31 12:01 WBC 11.2 H (3.8-10.6) k/uL Neutrophils # 10.3 H (1.3-7.7) k/uL Lymphocytes # 0.5 L (1.0-4.8) k/uL BUN 20 H (7-17) mg/dL Glucose 221 H (74-99) mg/dL POC Glucose (mg/dL) 304 H (75-99) mg/dL Assessment and Plan Assessment: Assessment COPD/asthma exacerbation complicated by purulent tracheobronchitis Acute hypoxic respiratory failure secondary to above. History of diabetes mellitus History of hypertension History of hyperlipidemia History of narcolepsy/cataplexy History of irritable bowel syndrome Lifelong nonsmoker History of CAD Plan: The patient was seen and evaluated by Dr. Cardona. She is doing better today as compared to yesterday. Still not quite back to her baseline. Continue with her current medications. We will increase her activity as tolerated. We'll continue to follow. I, the cosigning physician, performed a history & physical examination of the patient. Lungs sounds have bilateral end expiratory wheeze. Diminished.. Maintaining good O2 saturations in the 90s on 3 L/m per nasal cannula. I discussed the assessment and plan of care with my nurse practitioner, Jazmin Almeida. I attest to the above note as dictated by her.
[2017-04-20 17:14] LABS: Glucose,Whole Blood 335 mg/dL (75-99)
[2017-04-20] MEDS: PRAMIPEXOLE 1 MG TAB PO SCH (20:49)
[2017-04-20] MEDS: LEVOFLOXACIN 500 MG TAB PO SCH (20:49)
[2017-04-20] MEDS: EZETIMIBE 10 MG TAB PO SCH (20:49)
[2017-04-20] MEDS: clonazePAM 0.5 MG TAB PO PRN (20:49)
[2017-04-20] MEDS: BACLOFEN 10 MG TAB PO SCH (20:49)
[2017-04-20] MEDS: MONTELUKAST 10 MG TAB PO SCH (20:49)
[2017-04-20 21:04] LABS: Glucose,Whole Blood 352 mg/dL (75-99)
--- NOTE | 2017-04-20 22:36 | PN ---
PROGRESS NOTE DATE OF SERVICE: 04/20/16. INTERVAL HISTORY: This 71-year-old woman who was admitted with shortness of breath and COPD acute exacerbation and asthma acute exacerbation. The patient is on bronchodilators and steroids. Currently, Dr. Cardona is also following the patient. Blood sugar is being closely monitored. No chest pain. No palpitation. EXAM: Alert and oriented times three. Pulse 80, blood pressure 110/56, respiration 18, temperature 98.2, pulse ox 98% on 3 L. HEENT: Conjunctivae normal. Neck: No jugular venous distention. Cardiovascular: S1, S2 muffled. Respiratory: Breath sounds diminished at the bases. Bilateral scattered rhonchi and crackles. Expiratory wheezing also present. Breathing efforts are markedly increased. Abdomen soft, nontender. Nervous system: No focal deficits. LABS: WBC 7.7. Hemoglobin 11.2, Accu-Cheks 221. ASSESSMENT: 1. Chronic obstructive pulmonary disease acute exacerbation with acute purulent tracheobronchitis. 2. Asthma and chronic obstructive pulmonary disease. 3. Chronic obstructive pulmonary disease. 4. History of coronary artery disease. 5. Diabetes type 2 uncontrolled. 6. Hypertension. 7. Hyperlipidemia. 8. Narcolepsy and cataplexy. 9. History of appendectomy. 10.History of breast surgery. 11.History of anxiety. 12.History of depression. RECOMMENDATIONS AND DISCUSSION: Recommend to continue current medication, continue symptomatic treatment. Otherwise at this time I would recommend continue with bronchodilators. Continue to monitor the blood sugars closely. Insulin. Continue the rest of the medications. Guarded prognosis. Further recommendations to follow. MMODL / IJN: [id number] /
[2017-04-21 06:02] LABS: Glucose,Whole Blood 230 mg/dL (75-99)
[2017-04-21 06:39] LABS: Basophils % (A) 0 %; Eosinophils % (A) 0 %; HCT 36.2 % (34.0-46.0); HGB 11.8 gm/dL (11.4-16.0); Lymphocytes # (A) 0.6 k/uL (1.0-4.8); Lymphocytes % (A) 4 %; MCH 28.7 pg (25.0-35.0); MCHC 32.6 g/dL (31.0-37.0); Mean Platelet Volume 7.8; Monocytes # (A) 0.5 k/uL (0-1.0); Monocytes % (A) 3 %; Neutrophils # (A) 13.5 k/uL (1.3-7.7); Neutrophils % (A) 92 %; Platelet Count 244 k/uL (150-450); RBC 4.11 m/uL (3.80-5.40); RDW 14.1 % (11.5-15.5); WBC 14.7 k/uL (3.8-10.6)
[2017-04-21] MEDS: methylPREDNISolone SOD SUCCI 125 MG/2 ML VIAL IV SCH ×4 (06:50→23:35)
[2017-04-21] MEDS: PANTOPRAZOLE 40 MG TABLET PO SCH (06:50)
[2017-04-21 07:05] LABS: Anion Gap 10 mmol/L; Blood Urea Nitrogen 21 mg/dL (7-17); Calcium 9.2 mg/dL (8.4-10.2); Carbon Dioxide 31 mmol/L (22-30); Chloride 98 mmol/L (98-107); Glucose 233 mg/dL (74-99); Potassium 4.5 mmol/L (3.5-5.1); Sodium 139 mmol/L (137-145)
[2017-04-21] MEDS: INSULIN PUMP MEAL BOLUS 1 UNIT MISC MISCELLANE SCH ×4 (07:14→21:57)
[2017-04-21] MEDS: MODAFINIL 100 MG TAB PO SCH ×3 (07:52→16:25)
[2017-04-21] MEDS: ATORVASTATIN 80 MG TAB PO SCH (09:11)
[2017-04-21] MEDS: PREGABALIN 100 MG CAP PO SCH ×3 (09:11→20:18)
[2017-04-21] MEDS: traMADol 50 MG TAB PO SCH ×3 (09:11→21:56)
[2017-04-21] MEDS: CLOPIDOGREL 75 MG TAB PO SCH (09:12)
[2017-04-21] MEDS: LINAGLIPTIN 5 MG TABLET PO SCH (09:12)
[2017-04-21] MEDS: DULoxetine HCL 60 MG CAPSULE.DR PO SCH (09:13)
[2017-04-21] MEDS: BUDESONIDE 1 MG/2 ML NEBU INHALATION SCH ×2 (09:38→21:12)
[2017-04-21] MEDS: IPRATROPIUM-ALBUTEROL 3 ML NEB INHALATION SCH ×4 (09:38→21:11)
[2017-04-21] MEDS: FORMOTEROL FUMARATE 20 MCG/2 ML NEBU INHALATION SCH ×2 (09:39→21:19)
--- NOTE | 2017-04-21 10:26 | P.PN ---
Subjective Progress Note Date: 04/21/17 Principal diagnosis: COPD exacerbation Progress note dated 04/21/2017 The patient is seen on the sixth floor. She is doing a breathing treatment when I first walked into the room. She feels better today. Still very short of breath when she exerts herself. She feels better each day. The patient is using her BiPAP practically at nighttime. She sits in bed when she sleeps. She tends to sleep sitting up. When she's not on BiPAP, she is on O2 at 3 L. Her saturations are in the low 90s. Blood pressure stable. Coughing a bit. Not producing any phlegm. No nausea vomiting or diarrhea. No chest pain or chest discomfort. Objective - Vital Signs Vital signs: Vital Signs Temp 97.1 F L 04/21/17 04:00 Pulse 83 04/21/17 04:00 Resp 18 04/21/17 04:00 BP 127/63 04/21/17 04:00 Pulse Ox 95 04/21/17 04:00 Intake & Output 04/20/17 04/21/17 04/21/17 18:59 06:59 18:59 Intake Total 840 400 Balance 840 400 Weight 73.7 kg Intake: Oral 840 400 Other: Voiding Method Bedside Commode Bedside Commode # Voids 2 - Exam No acute distress, oriented 3. Nasal O2 in place at 3 L HEENT examination is grossly unremarkable. Mucous membranes are moist. No oral lesions. Neck supple. Full range of motion. No adenopathy thyromegaly or neck vein distention. Cardiovascular examination reveals regular rhythm rate. S1-S2 normal. No S3 or S4. No discernible murmur noted. Lungs reveal diminished breath sounds throughout. Breath sounds are equal. There is prolongation on forced maneuver. There is diffuse bilateral expiratory wheezes and a few scattered rhonchi. Abdomen soft bowel sounds are heard. No masses or tenderness. Extremities are intact. No cyanosis clubbing or edema. Skin is without rash or lesion. Neurologic examination is brief but nonfocal. - Labs CBC & Chem 7: 04/21/17 05:48 04/21/17 05:48 Labs: Abnormal Lab Results - Last 24 Hours (Table) 04/20/17 04/20/17 04/20/17 Range/Units 12:01 16:51 21:01 WBC (3.8-10.6) k/uL Neutrophils # (1.3-7.7) k/uL Lymphocytes # (1.0-4.8) k/uL Carbon Dioxide (22-30) mmol/L BUN (7-17) mg/dL Glucose (74-99) mg/dL POC Glucose (mg/dL) 304 H 335 H 352 H (75-99) mg/dL 04/21/17 04/21/17 04/21/17 Range/Units 05:48 05:48 05:53 WBC 14.7 H (3.8-10.6) k/uL Neutrophils # 13.5 H (1.3-7.7) k/uL Lymphocytes # 0.6 L (1.0-4.8) k/uL Carbon Dioxide 31 H (22-30) mmol/L BUN 21 H (7-17) mg/dL Glucose 233 H (74-99) mg/dL POC Glucose (mg/dL) 230 H (75-99) mg/dL Assessment and Plan Assessment: Assessment COPD/asthma exacerbation complicated by purulent tracheobronchitis History of CAD History of diabetes mellitus History of hypertension History of hyperlipidemia History of narcolepsy/cataplexy, on Provigil History of irritable bowel syndrome Lifelong nonsmoker Plan: Plan dated 04/19/2017 The patient does not look overly ill. I'll review her medications. Chest x- ray did not show any infiltrates. She should be on a short acting beta agonist , short acting muscarinic antagonist, a long-acting beta agonist, and inhaled corticosteroid. In addition, the patient would probably benefit from a short course of oral antibiotics and systemic corticosteroids. When she gets turned around, we'll have her follow-up in the office with our partner. Plan dated 04/21/2017 The patient remains on all the appropriate medications. Each day she seems a bit better. Still very short of breath with any exertion. Probably not ready for discharge before another 24-48 hours. I encouraged her to get up out of bed and walk around with assistance. She should use her oxygen. She's using her BiPAP device at nighttime. The patient feels like her breathing is improved. She should focus on deep breathing coughing and clearing his secretions and we do recommend the use of her incentive spirometer. Medications labs and x-rays are all reviewed. Time with Patient: Less than 30
[2017-04-21 12:03] LABS: Glucose,Whole Blood 174 mg/dL (75-99)
[2017-04-21] MEDS: CHOLECALCIFEROL 1,000 UNIT TAB PO SCH (12:28)
[2017-04-21 17:15] LABS: Glucose,Whole Blood 291 mg/dL (75-99)
--- NOTE | 2017-04-21 18:49 | PN ---
PROGRESS NOTE DATE OF SERVICE: 04/21/2017. INTERVAL HISTORY: This 71-year-old woman was admitted with COPD exacerbation as well as purulent tracheobronchitis, being closely monitored. No chest pain. No palpitations. No fever. PHYSICAL EXAM: Alert and oriented times three. Pulse 104, blood pressure 110/68, respiration 18, temperature is normal, pulse ox 94% on 3 L. HEENT: Conjunctivae normal. Neck is no jugular venous distention. Cardiovascular: S1, S2 muffled. Respiratory: Breath sounds diminished in the bases. Bilateral scattered rhonchi and crackles. Expiratory wheezing also present. Breathing efforts was markedly increased. ABDOMEN: Soft, nontender. No mass palpable. Legs are no edema. No swelling. Central nervous system: No focal deficits. LAB STUDIES: WBC 14.7 and glucose 230. ASSESSMENT: 1. Chronic obstructive pulmonary disease exacerbation with acute purulent tracheobronchitis. 2. Asthma and chronic obstructive pulmonary disease history. 3. History of coronary artery disease. 4. Diabetes type 2 uncontrolled. 5. Hypertension. 6. Hyperlipidemia. 7. Narcolepsy, cataplexy. 8. History of appendectomy. 9. History of breast surgery. 10.History of anxiety. 11.History of depression. RECOMMENDATIONS AND DISCUSSION: Recommend to continue current medications, management and symptomatic treatment, continue bronchodilators, steroids, antibiotics. Closely monitor. Guarded prognosis because of multiple medical problems. Further recommendations to follow. MMODL / IJN: [id number] /
[2017-04-21] MEDS: MONTELUKAST 10 MG TAB PO SCH (20:18)
[2017-04-21] MEDS: EZETIMIBE 10 MG TAB PO SCH (20:18)
[2017-04-21] MEDS: PRAMIPEXOLE 1 MG TAB PO SCH (20:18)
[2017-04-21] MEDS: BACLOFEN 10 MG TAB PO SCH (20:18)
[2017-04-21] MEDS: LEVOFLOXACIN 500 MG TAB PO SCH (20:18)
[2017-04-21 21:03] LABS: Glucose,Whole Blood 271 mg/dL (75-99)
[2017-04-21] MEDS: clonazePAM 0.5 MG TAB PO PRN (21:56)
[2017-04-22 06:01] LABS: Glucose,Whole Blood 316 mg/dL (75-99)
[2017-04-22 06:45] LABS: Basophils % (A) 0 %; Eosinophils % (A) 0 %; HCT 37.6 % (34.0-46.0); HGB 11.9 gm/dL (11.4-16.0); Lymphocytes # (A) 0.5 k/uL (1.0-4.8); Lymphocytes % (A) 3 %; MCH 28.1 pg (25.0-35.0); MCHC 31.7 g/dL (31.0-37.0); MCV 88.7 fL (80.0-100.0); Mean Platelet Volume 8.1; Monocytes # (A) 0.5 k/uL (0-1.0); Monocytes % (A) 4 %; Neutrophils # (A) 13.4 k/uL (1.3-7.7); Neutrophils % (A) 92 %; Platelet Count 256 k/uL (150-450); RBC 4.23 m/uL (3.80-5.40); RDW 13.9 % (11.5-15.5); WBC 14.6 k/uL (3.8-10.6)
[2017-04-22 06:51] LABS: Anion Gap 10 mmol/L; Blood Urea Nitrogen 20 mg/dL (7-17); Carbon Dioxide 31 mmol/L (22-30); Chloride 96 mmol/L (98-107); Glucose 305 mg/dL (74-99); Potassium 4.4 mmol/L (3.5-5.1); Sodium 137 mmol/L (137-145)
[2017-04-22] MEDS: methylPREDNISolone SOD SUCCI 125 MG/2 ML VIAL IV SCH (06:51)
[2017-04-22] MEDS: PANTOPRAZOLE 40 MG TABLET PO SCH (06:51)
[2017-04-22] MEDS: INSULIN PUMP MEAL BOLUS 1 UNIT MISC MISCELLANE SCH ×4 (07:36→21:31)
[2017-04-22] MEDS: FORMOTEROL FUMARATE 20 MCG/2 ML NEBU INHALATION SCH ×2 (07:55→20:48)
[2017-04-22] MEDS: IPRATROPIUM-ALBUTEROL 3 ML NEB INHALATION SCH ×4 (07:55→20:48)
[2017-04-22] MEDS: BUDESONIDE 1 MG/2 ML NEBU INHALATION SCH ×2 (07:56→20:48)
[2017-04-22] MEDS: ATORVASTATIN 80 MG TAB PO SCH (08:36)
[2017-04-22] MEDS: CLOPIDOGREL 75 MG TAB PO SCH (08:36)
[2017-04-22] MEDS: DULoxetine HCL 60 MG CAPSULE.DR PO SCH (08:36)
[2017-04-22] MEDS: LINAGLIPTIN 5 MG TABLET PO SCH (08:37)
[2017-04-22] MEDS: PREGABALIN 100 MG CAP PO SCH ×3 (08:40→21:27)
[2017-04-22] MEDS: traMADol 50 MG TAB PO SCH ×3 (08:40→21:26)
[2017-04-22] MEDS: MODAFINIL 100 MG TAB PO SCH ×3 (08:40→16:13)
--- NOTE | 2017-04-22 10:22 | CDI ---
Last Revision, January 2017 Documentation Clarification Form Date: 04/19/2017 1:06:00 PM From: Mary Beth Boyce [facility], CCDS Admit Date: 04/18/2017 7:43:00 PM Patient Name: Saira Juarez I Visit Number: [id number] Discharge Date: ATTENTION: The Clinical Documentation Specialists (CDI) and [facility] Coding Staff appreciate your assistance in clarifying documentation. Please respond to the clarification below the line at the bottom and electronically sign. The CDI & [facility] Coding staff will review the response and follow-up if needed. Please note: Queries are made part of the Legal Health Record. If you have any questions, please contact the author of this message via ITS. Dr. Graeme Cardona or Dr. Jaylen Oro: Per your pulmonary consult, the patient is diagnosed with COPD/Asthma exacerbation complicated by purulent tracheobronchitis. Patient history/risk factors: COPD, Asthma w/exacerbations, follows w/pulmonary ; CAD, DM w/Insulin pump, Hypertension and Pneumonia. Clinical Indicators: Radiology: CXR: No active cardiopulmonary disease. Vital Signs: T 98.2, P 106^, R 26^ (sob, cough), BP 122/71, PO 95 RA/2Lnc Other Clinical Indicators: Severe wheezing, in severe distress using accessory muscles. Treatment: ABGs, Formoterol INH, Pulmicort INH, Albuterol INH, IV Solumedrol. In your professional opinion, can you please further specify the the asthma diagnosis, if known? Per the pulmonary consult, Asthma exacerbation is documented. Please clarify the severity & type if known: Severity: Mild intermittent Mild persistent Moderate persistent Severe persistent Other, please specify OR Unable to determine Form or Type: Cough variant Exercise induced bronchospasm Extrinsic allergic Idiosyncratic Intrinsic nonallergic Late-onset Mixed Other, please specify OR Unable to determine Please continue to document in your progress notes and discharge summary in order to capture severity of illness and risk of mortality. Include clinical findings that support your diagnosis. Severe persistent,Intrinsic nonallergic MTDD
[2017-04-22] MEDS: CHOLECALCIFEROL 1,000 UNIT TAB PO SCH (11:59)
[2017-04-22 12:12] LABS: Glucose,Whole Blood 311 mg/dL (75-99)
--- NOTE | 2017-04-22 15:15 | P.PN ---
Subjective Progress Note Date: 04/22/17 71-year-old female patient was being seen for a follow-up. The patient was hospitalized for an acute COPD exacerbation. The patient was in significant respiratory distress and the patient went on BiPAP for respiratory support. Overall condition is improving. Currently she is on 3 L of oxygen by nasal cannula and she is maintaining a saturation above 90%. Hemodynamically stable. Limited cough without any significant sputum production. No nausea vomiting or diarrhea or abdominal pain. No chest pain for now. No altered mentation. The patient is receiving Perforomist and Pulmicort neb last 2 minutes twice a day, IV Solu Medrol 40 mg every 8 hours, in addition to DuoNeb nebulized treatments around the clock. The patient has no other new complaints otherwise for now. Antibiotic coverage is with IV Levaquin. Chest x-ray on admission showed no acute abnormalities. Objective - Vital Signs Vital signs: Vital Signs Temp 97.3 F L 04/22/17 11:20 Pulse 78 04/22/17 11:20 Resp 18 04/22/17 11:20 BP 128/69 04/22/17 11:20 Pulse Ox 96 04/22/17 11:20 Intake & Output 04/21/17 04/22/17 04/22/17 18:59 06:59 18:59 Intake Total 1240 360 Output Total 600 Balance 1240 -600 360 Weight 72.7 kg Intake: Oral 1240 360 Output: Urine 600 Other: Voiding Method Bedside Commode Bedside Commode Bedside Commode # Voids 1 3 - Exam No acute distress, oriented 3. Nasal O2 in place at 3 L HEENT examination is grossly unremarkable. Mucous membranes are moist. No oral lesions. Neck supple. Full range of motion. No adenopathy thyromegaly or neck vein distention. Cardiovascular examination reveals regular rhythm rate. S1-S2 normal. No S3 or S4. No discernible murmur noted. Lungs reveal diminished breath sounds throughout. Breath sounds are equal. There is prolongation on forced maneuver. There is diffuse bilateral expiratory wheezes and a few scattered rhonchi. Abdomen soft bowel sounds are heard. No masses or tenderness. Extremities are intact. No cyanosis clubbing or edema. Skin is without rash or lesion. Neurologic examination is brief but nonfocal. - Labs CBC & Chem 7: 04/22/17 05:36 04/22/17 05:36 Labs: Abnormal Lab Results - Last 24 Hours (Table) 04/21/17 04/21/17 04/22/17 Range/Units 16:57 20:57 05:36 WBC 14.6 H (3.8-10.6) k/uL Neutrophils # 13.4 H (1.3-7.7) k/uL Lymphocytes # 0.5 L (1.0-4.8) k/uL Chloride (98-107) mmol/L Carbon Dioxide (22-30) mmol/L BUN (7-17) mg/dL Glucose (74-99) mg/dL POC Glucose (mg/dL) 291 H 271 H (75-99) mg/dL 04/22/17 04/22/17 04/22/17 Range/Units 05:36 06:00 11:43 WBC (3.8-10.6) k/uL Neutrophils # (1.3-7.7) k/uL Lymphocytes # (1.0-4.8) k/uL Chloride 96 L (98-107) mmol/L Carbon Dioxide 31 H (22-30) mmol/L BUN 20 H (7-17) mg/dL Glucose 305 H (74-99) mg/dL POC Glucose (mg/dL) 316 H 311 H (75-99) mg/dL Assessment and Plan Plan: Assessment 1 acute exacerbation of asthma with an acute bronchitis, improving 2 shortness of breath secondary to above, improving 3 coronary artery disease 4 diabetes mellitus 5 hypertension 6 hyperlipidemia 7 irritable bowel syndrome 8 history of narcolepsy/cataplexy currently on Provigil 9 steroid-induced hyperglycemia Plan Continue same treatment and taper the patient a prednisone burst taper as of tomorrow. Continue DuoNeb neb treatments around the clock. Continue Perforomist and Pulmicort overestimates twice a day. Continue Levaquin. We'll continue to follow. Encourage ambulation. In terms of her asthma, the patient is demented on a combination of Advair medium dose to 50/50 Diskus 1 puff twice a day and singular 10 mg by mouth daily. This can be also continued on outpatient basis.
[2017-04-22] MEDS: methylPREDNISolone SOD SUCCI 40 MG/ML 1 ML VIAL IV SCH ×2 (16:14→23:24)
[2017-04-22 16:54] LABS: Glucose,Whole Blood 322 mg/dL (75-99)
--- NOTE | 2017-04-22 17:55 | P.PN ---
Subjective Progress Note Date: 04/22/17 Progress note dictated for Dr. Brice. This is a 71-year-old female admitted with acute COPD exacerbation, purulent tracheobronchitis. Maintained on nebulized bronchodilators, IV steroids, Levaquin with breathing improving. Blood sugars uncontrolled, on steroids. Hemoglobin A1c 7.1. Denies chest pain, palpitations, afebrile. Objective - Vital Signs Vital signs: Vital Signs Temp 97.3 F L 04/22/17 15:15 Pulse 80 04/22/17 16:05 Resp 18 04/22/17 15:15 BP 132/68 04/22/17 15:15 Pulse Ox 96 04/22/17 15:15 Intake & Output 04/21/17 04/22/17 04/22/17 18:59 06:59 18:59 Intake Total 1240 720 Output Total 600 Balance 1240 -600 720 Weight 72.7 kg Intake: Oral 1240 720 Output: Urine 600 Other: Voiding Method Bedside Commode Bedside Commode Bedside Commode # Voids 1 3 - Exam PHYSICAL EXAM: VITAL SIGNS: As above GENERAL: Sitting up in bed, no acute distress HEENT: Conjunctivae normal. eyes normal. Oral mucosa NECK: No JVD. No thyroid enlargement. No LNs CARDIOVASCULAR: S1, S2 muffled. No murmur RESPIRATION: Breath sounds diminished in the bases. Bilateral scattered rhonchi and crackles.Fine Scattered expiratory wheezes ABDOMEN: Soft, nontender. No guarding. no masses palpable. Bowel sounds heard. LEGS: No edema. no swelling PSYCHIATRY: Alert and oriented -3, mood and affect normal. NERVOUS SYSTEM: Cranial N 2-12 grossly normal. Moves all 4 limbs. Diffuse weakness No focal deficits. Skin: no ulcer no rash Joints: No active swelling. No inflammation. Lymphatic system. No LN neck axilla or groin. - Labs CBC & Chem 7: 04/22/17 05:36 04/22/17 05:36 Labs: Abnormal Lab Results - Last 24 Hours (Table) 04/21/17 04/22/17 04/22/17 Range/Units 20:57 05:36 05:36 WBC 14.6 H (3.8-10.6) k/uL Neutrophils # 13.4 H (1.3-7.7) k/uL Lymphocytes # 0.5 L (1.0-4.8) k/uL Chloride 96 L (98-107) mmol/L Carbon Dioxide 31 H (22-30) mmol/L BUN 20 H (7-17) mg/dL Glucose 305 H (74-99) mg/dL POC Glucose (mg/dL) 271 H (75-99) mg/dL 04/22/17 04/22/17 04/22/17 Range/Units 06:00 11:43 16:33 WBC (3.8-10.6) k/uL Neutrophils # (1.3-7.7) k/uL Lymphocytes # (1.0-4.8) k/uL Chloride (98-107) mmol/L Carbon Dioxide (22-30) mmol/L BUN (7-17) mg/dL Glucose (74-99) mg/dL POC Glucose (mg/dL) 316 H 311 H 322 H (75-99) mg/dL Assessment and Plan Assessment: 1. Acute COPD exacerbation with acute purulent tracheobronchitis 2. Asthma and COPD history 3. CAD 4. Diabetes mellitus type 2, hemoglobin A1c 7.1. 5. Hypertension 6. Hyperlipidemia 7. narcolepsy, cataplexy Plan: Continue on current medication, monitoring and symptomatic treatment. Maintain nebulized bronchodilators, antibiotics and steroids. Steroid tapering in progress. Patient has insulin pump, additional insulin administered.close monitoring of Accu-Cheks. Aggressive pulmonary toileting. Increase ambulation as tolerated. Discharge planning in progress pending clearance from pulmonary tomorrow. The impression and plan of care has been dictated as directed. : I performed a history and examination of this patient, discussed the same with the dictator. I agree with the dictator's note ,documented as a scribe. Any additional findings or plans will be noted.
[2017-04-22] MEDS: EZETIMIBE 10 MG TAB PO SCH (21:22)
[2017-04-22] MEDS: PRAMIPEXOLE 1 MG TAB PO SCH (21:22)
[2017-04-22] MEDS: MONTELUKAST 10 MG TAB PO SCH (21:22)
[2017-04-22] MEDS: LEVOFLOXACIN 500 MG TAB PO SCH (21:22)
[2017-04-22] MEDS: BACLOFEN 10 MG TAB PO SCH (21:22)
[2017-04-22 21:32] LABS: Glucose,Whole Blood 294 mg/dL (75-99)
[2017-04-22] MEDS: clonazePAM 0.5 MG TAB PO PRN (23:23)
[2017-04-23 05:58] LABS: Glucose,Whole Blood 223 mg/dL (75-99)
[2017-04-23 06:31] LABS: Basophils % (A) 0 %; Eosinophils % (A) 0 %; HGB 13.1 gm/dL (11.4-16.0); Lymphocytes # (A) 0.5 k/uL (1.0-4.8); Lymphocytes % (A) 3 %; MCHC 34.5 g/dL (31.0-37.0); MCV 84.2 fL (80.0-100.0); Mean Platelet Volume 7.4; Monocytes # (A) 0.6 k/uL (0-1.0); Monocytes % (A) 4 %; Neutrophils # (A) 13.5 k/uL (1.3-7.7); Neutrophils % (A) 91 %; Platelet Count 296 k/uL (150-450); RBC 4.51 m/uL (3.80-5.40); RDW 13.8 % (11.5-15.5); WBC 14.8 k/uL (3.8-10.6)
[2017-04-23] MEDS: PANTOPRAZOLE 40 MG TABLET PO SCH (06:37)
[2017-04-23 06:45] LABS: Anion Gap 9 mmol/L; Blood Urea Nitrogen 22 mg/dL (7-17); Calcium 8.9 mg/dL (8.4-10.2); Carbon Dioxide 31 mmol/L (22-30); Chloride 97 mmol/L (98-107); Glucose 220 mg/dL (74-99); Potassium 4.5 mmol/L (3.5-5.1); Sodium 137 mmol/L (137-145)
[2017-04-23] MEDS: INSULIN PUMP MEAL BOLUS 1 UNIT MISC MISCELLANE SCH ×2 (07:05→12:15)
[2017-04-23] MEDS: BUDESONIDE 1 MG/2 ML NEBU INHALATION SCH (07:31)
[2017-04-23] MEDS: FORMOTEROL FUMARATE 20 MCG/2 ML NEBU INHALATION SCH (07:32)
[2017-04-23] MEDS: IPRATROPIUM-ALBUTEROL 3 ML NEB INHALATION SCH ×2 (07:32→11:15)
[2017-04-23] MEDS: MODAFINIL 100 MG TAB PO SCH ×2 (08:57→12:10)
[2017-04-23] MEDS: methylPREDNISolone SOD SUCCI 40 MG/ML 1 ML VIAL IV SCH (08:57)
[2017-04-23] MEDS: PREGABALIN 100 MG CAP PO SCH (08:57)
[2017-04-23] MEDS: traMADol 50 MG TAB PO SCH (08:57)
[2017-04-23] MEDS: LINAGLIPTIN 5 MG TABLET PO SCH (08:58)
[2017-04-23] MEDS: DULoxetine HCL 60 MG CAPSULE.DR PO SCH (08:58)
[2017-04-23] MEDS: CLOPIDOGREL 75 MG TAB PO SCH (08:58)
[2017-04-23] MEDS: ATORVASTATIN 80 MG TAB PO SCH (08:58)
[2017-04-23] MEDS ORDERED: predniSONE 20 MG TAB PO SCH (10:30)
[2017-04-23 11:13] VITALS: RESP 24
[2017-04-23 11:35] VITALS: BP 122/68; TEMP 98.5
--- NOTE | 2017-04-23 11:49 | P.PN ---
Subjective Progress Note Date: 04/23/17 71-year-old female patient was being seen for a follow-up. The patient was hospitalized for an acute COPD exacerbation. The patient was in significant respiratory distress and the patient went on BiPAP for respiratory support. Overall condition is improving. Currently she is on 3 L of oxygen by nasal cannula and she is maintaining a saturation above 90%. Hemodynamically stable. Limited cough without any significant sputum production. No nausea vomiting or diarrhea or abdominal pain. No chest pain for now. No altered mentation. The patient is receiving Perforomist and Pulmicort neb last 2 minutes twice a day, IV Solu Medrol 40 mg every 8 hours, in addition to DuoNeb nebulized treatments around the clock. The patient has no other new complaints otherwise for now. Antibiotic coverage is with IV Levaquin. Chest x-ray on admission showed no acute abnormalities. On 04/23/2017, seeing this patient for a follow-up. There has been significant improvement in overall condition pH is less short of breath. Last bronchus spastic and wheezy. I'm going to take suspicion of the IV Solu Medrol. The patient on a prednisone burst taper. No chest pain. No pleurisy. No hemoptysis. No nausea or vomiting. She is still on DuoNeb nebulized treatments around the clock. She is on a combination of Advair and Singulair on outpatient basis regarding her chronic bronchial asthma. I would also suggest weaning the FiO2 down to maintain a saturation above 90%. She is currently on 3 L and his saturations around 96%. Objective - Vital Signs Vital signs: Vital Signs Temp 98.5 F 04/23/17 11:33 Pulse 89 04/23/17 11:33 Resp 24 04/23/17 11:33 BP 122/68 04/23/17 11:33 Pulse Ox 96 04/23/17 11:33 Intake & Output 04/22/17 04/23/17 04/23/17 18:59 06:59 18:59 Intake Total 720 360 180 Balance 720 360 180 Weight 72 kg Intake: Oral 720 360 180 Other: Voiding Method Bedside Commode Bedside Commode Bedside Commode # Voids 3 2 - Exam No acute distress, oriented 3. Nasal O2 in place at 3 L HEENT examination is grossly unremarkable. Mucous membranes are moist. No oral lesions. Neck supple. Full range of motion. No adenopathy thyromegaly or neck vein distention. Cardiovascular examination reveals regular rhythm rate. S1-S2 normal. No S3 or S4. No discernible murmur noted. Lungs reveal diminished breath sounds throughout. Breath sounds are equal. Marked improvement in the bronchospasm wheezing at was noted on yesterday's evaluation. Abdomen soft bowel sounds are heard. No masses or tenderness. Extremities are intact. No cyanosis clubbing or edema. Skin is without rash or lesion. Neurologic examination is brief but nonfocal. - Labs CBC & Chem 7: 04/23/17 05:58 04/23/17 05:58 Labs: Abnormal Lab Results - Last 24 Hours (Table) 04/22/17 04/22/17 04/22/17 Range/Units 11:43 16:33 21:20 WBC (3.8-10.6) k/uL Neutrophils # (1.3-7.7) k/uL Lymphocytes # (1.0-4.8) k/uL Chloride (98-107) mmol/L Carbon Dioxide (22-30) mmol/L BUN (7-17) mg/dL Glucose (74-99) mg/dL POC Glucose (mg/dL) 311 H 322 H 294 H (75-99) mg/dL 04/23/17 04/23/17 04/23/17 Range/Units 05:51 05:58 05:58 WBC 14.8 H (3.8-10.6) k/uL Neutrophils # 13.5 H (1.3-7.7) k/uL Lymphocytes # 0.5 L (1.0-4.8) k/uL Chloride 97 L (98-107) mmol/L Carbon Dioxide 31 H (22-30) mmol/L BUN 22 H (7-17) mg/dL Glucose 220 H (74-99) mg/dL POC Glucose (mg/dL) 223 H (75-99) mg/dL Assessment and Plan Plan: Assessment 1 acute exacerbation of asthma with an acute bronchitis, improving 2 shortness of breath secondary to above/ acute hypoxic respiratory failure currently untreated oxygen by nasal cannula. 3 coronary artery disease 4 diabetes mellitus 5 hypertension 6 hyperlipidemia 7 irritable bowel syndrome 8 history of narcolepsy/cataplexy currently on Provigil 9 steroid-induced hyperglycemia Plan Start the patient a prednisone burst taper. Wean FiO2 and assess her room air oxygen. May need home O2. Monitor the blood sugars. Maintenance inhalers will be Advair 250/50 one puff twice a day and Singulair 10 mg by mouth daily regarding her bronchial asthma.
[2017-04-23] MEDS: CHOLECALCIFEROL 1,000 UNIT TAB PO SCH (12:11)
[2017-04-23 12:14] LABS: Glucose,Whole Blood 259 mg/dL (75-99)
[2017-04-23 12:48] VITALS: PULSE 86
[2017-04-23] MEDS ORDERED: INFLUENZA VACCINE (6 MOS+) 60 MCG/0.5 ML SYRINGE IM ONE (14:06)
--- NOTE | 2017-04-23 23:30 | DS ---
DISCHARGE SUMMARY FINAL DIAGNOSES: 1. Chronic obstructive pulmonary disease acute exacerbation with acute purulent tracheobronchitis. 2. Asthma, chronic obstructive pulmonary disease history. 3. Coronary artery disease. 4. Diabetes type 2. Hemoglobin A1c 7.1. 5. Hypertension. 6. Hyperlipidemia. 7. Narcolepsy, cataplexy. DISCHARGE CONDITION: The patient is discharged in stable condition with guarded prognosis. HISTORY OF PRESENT ILLNESS: This 71-year-old woman with a past medical history of multiple medical problems, being followed by Dr. Caicedo in the outpatient setting, was admitted with COPD acute exacerbation. Patient has seen Dr. Oro and treated with bronchodilators and steroids. The patient improved significantly. PHYSICAL EXAM: VITAL SIGNS: Stable. CARDIOVASCULAR: S1 and S2 muffled. LUNGS: Breath sounds diminished. Few scattered rhonchi. ABDOMEN: Soft, nontender. EXTREMITIES: No edema. DISCHARGE INSTRUCTIONS: 1. Diet is cardiac. 2. Activity limited. 3. Followup with Dr. Caicedo in 2 to 3 days. 4. Followup with Dr. Oro as advised. MEDICATIONS: 1. Albuterol 2.5 q.i.d. and p.r.n. 2. Lipitor 80 mg. 3. Baclofen 10 to 20 mg at bedtime. 4. Vitamin D3, 1000 daily. 5. Klonopin 0.5 mg at bedtime p.r.n. 6. Plavix 75 mg p.o. daily. 7. Bentyl 10 mg t.i.d. p.r.n. 8. Cymbalta 60 mg p.o. daily. 9. Zetia 10 mg at bedtime. 10.Advair 1 puff b.i.d. 11.Hydrocodone every 6 hours p.r.n. 12.Insulin lispro scale. 13.Levaquin 500 mg p.o. daily for 5 days. 14.Lidoderm patch for local application. 15.Provigil 100 mg p.o. t.i.d. 16.Singular 10 mg at bedtime. 17.Protonix 40 mg a.m. 18.Mirapex 1 mg at bedtime. 19.Prednisone taper that is 40 mg daily for 3 days, 30 for 3 days, 20 for 3 days, 10 for 3 days and then stop. 20.Lyrica 200 mg p.o. t.i.d. 21.Sitagliptin 100 mg a.m. 22.Ultram 50 mg p.o. t.i.d. CBC and BMP with Dr. Caicedo. Once again, the patient will be discharged in stable condition with guarded prognosis. KEVANL / QUENTIN: [id number] /
== END 2017-04-23 14:45 | disposition home or self-care (01) | DRG 190 ==
LOC: EC 17:20 → 6SEL 19:43
PROVIDERS: ADMIT Hospitalist; ATTEND Hospitalist
DX: J44.0 Chronic obstructive pulmonary disease with (acute) lower respiratory infection (principal); J96.01 Acute respiratory failure with hypoxia; E11.65 Type 2 diabetes mellitus with hyperglycemia; J45.41 Moderate persistent asthma with (acute) exacerbation; K21.9 Gastro-esophageal reflux disease without esophagitis; J20.9 Acute bronchitis, unspecified; E78.5 Hyperlipidemia, unspecified; I10 Essential (primary) hypertension; I25.10 Atherosclerotic heart disease of native coronary artery without angina pectoris; K58.9 Irritable bowel syndrome, unspecified; T38.0X5A Adverse effect of glucocorticoids and synthetic analogues, initial encounter; J44.1 Chronic obstructive pulmonary disease with (acute) exacerbation; F32.9 Major depressive disorder, single episode, unspecified; F41.9 Anxiety disorder, unspecified; G47.411 Narcolepsy with cataplexy; Z79.02 Long term (current) use of antithrombotics/antiplatelets; Z79.4 Long term (current) use of insulin; Z79.891 Long term (current) use of opiate analgesic; Z79.51 Long term (current) use of inhaled steroids; Z79.899 Other long term (current) drug therapy; Z96.41 Presence of insulin pump (external) (internal); Z90.710 Acquired absence of both cervix and uterus; Z87.01 Personal history of pneumonia (recurrent); Z90.49 Acquired absence of other specified parts of digestive tract; Z98.42 Cataract extraction status, left eye; Z98.41 Cataract extraction status, right eye; Z88.5 Allergy status to narcotic agent; Z88.8 Allergy status to other drugs, medicaments and biological substances; Z88.6 Allergy status to analgesic agent; Z91.02 Food additives allergy status
CPT/HCPCS: 36415; 36600; 71046; 80048; 80053; 82550; 82553; 82805; 83036; 83735; 83880; 84484; 85025; 85610; 85730; 90686; 93005; 94640; 94660; 96361; 96372; 96374; 99291

== ENCOUNTER 2017-05-06 15:46 | Inpatient (IN) | payer MEDICARE, OTHER ==
[2017-05-06 16:25] LABS: Glucose,Whole Blood 112 mg/dL (75-99)
--- NOTE | 2017-05-06 16:27 | CT ---
EXAMINATION TYPE: CT brain wo con DATE OF EXAM: 05/06/2017 COMPARISON: Prior CT 03/12/2016 HISTORY: Decreased mental status CT DLP: 1147 mGycm Automated exposure control for dose reduction was used. Helical acquisition through the brain. FINDINGS: There is no significant interval change. Cortical atrophy again noted. White matter demyelination jacklyn nges are stable. There is no hemorrhage or hydrocephalus. Cerebral vascular calcifications are presen t. Orbits are symmetric. IMPRESSION: STABLE EXAM, NO ACUTE ABNORMALITY.
[2017-05-06] MEDS ORDERED: SODIUM CHLORIDE 0.9% 1,000 ML IV STA (16:30)
[2017-05-06] MEDS ORDERED: RX INFO: IV CONTRAST WAS GIVEN 1 EACH MISC MISCELLANE PRN (16:30)
--- NOTE | 2017-05-06 16:34 | ED ---
General Adult HPI - General Chief complaint: Altered Mental Status Stated complaint: Altered Mental Status Time Seen by Provider: 05/06/17 15:54 Source: patient, RN notes reviewed Mode of arrival: ambulatory Limitations: altered mental status - History of Present Illness Initial comments: Patient is a pleasant [age]-year-old female presenting to the emergency department with concern for change in mental status. Onset was close to 3 PM. Patient states symptoms have now near resolved. Patient had dizziness described as a room spinning. Patient states this is near resolved at this time. Patient states earlier she had difficulty speaking. Patient denies ever having confusion. Patient states she had problems getting the words out. Family member states patient had slurred and garbled speech. Patient has had increased stress recently. Patient states sometimes she feels shaky. - Related Data Home Medications Medication Instructions Recorded Confirmed Atorvastatin [Lipitor] 80 mg PO HS 03/21/14 05/06/17 Baclofen 10 - 20 mg PO HS 03/21/14 05/06/17 Dicyclomine [Bentyl] 10 mg PO QID PRN 03/21/14 05/06/17 Hydrocodone/Acetaminophen [[place] 1 tab PO Q6HR PRN 03/21/14 05/06/17 7.5-325] Modafinil [Provigil] 100 mg PO DAILY 03/21/14 05/06/17 Pantoprazole Sodium [Protonix] 40 mg PO QAM 03/21/14 05/06/17 Pramipexole Di-HCl [Mirapex] 1 mg PO HS 03/21/14 05/06/17 Pregabalin [Lyrica] 200 mg PO TID 03/21/14 05/06/17 sitaGLIPtin PHOSPHATE [Januvia] 100 mg PO QAM 03/21/14 05/06/17 traMADol HCl [Ultram] 50 - 100 mg PO TID 05/22/14 05/06/17 Lidocaine 5% Patch [Lidoderm 5% 1 patch TOPICAL DAILY PRN 03/09/15 05/06/17 Patch] Montelukast [Singulair] 10 mg PO HS 04/11/15 05/06/17 Cholecalciferol [Vitamin D3] 1,000 unit PO DAILY 03/12/16 05/06/17 Ezetimibe [Zetia] 10 mg PO HS 03/12/16 05/06/17 INSULIN LISPRO (For Pump) [humaLOG See Protocol SQ-PUMP CONTINUOUS 04/18/17 (For Pump)] Clopidogrel Bisulfate [Plavix] 75 mg PO HS 05/06/17 05/06/17 DULoxetine HCL [Cymbalta] 30 mg PO BID 05/06/17 05/06/17 Escitalopram [Lexapro] 5 mg PO DAILY 05/06/17 05/06/17 Fluticasone/Salmeterol [Advair 1 puff INHALATION RT-BID 05/06/17 05/06/17 500-50 Diskus] Hydrochlorothiazide 12.5 mg PO DAILY 05/06/17 05/06/17 Previous Rx's Medication Instructions Recorded clonazePAM [KlonoPIN] 0.5 mg PO HS PRN tab 04/23/17 Allergies Allergy/AdvReac Type Severity Reaction Status Date / Time aspirin Allergy Swelling Verified 05/06/17 16:56 ibuprofen Allergy Swelling Verified 05/06/17 16:56 ipratropium bromide Allergy Swelling Verified 05/06/17 16:56 [From Atrovent] meperidine HCl [From Demerol] Allergy Rash/Hives Verified 05/06/17 16:56 hydromorphone HCl AdvReac Nausea & Verified 05/06/17 16:56 [From Dilaudid] Vomiting metformin AdvReac Unknown Verified 05/06/17 15:53 morphine AdvReac Vomiting Verified 05/06/17 16:56 trazodone AdvReac Weakness Verified 05/06/17 16:56 zolpidem tartrate AdvReac Hallucinati Verified 05/06/17 16:56 [From Ambien] ons MSG Allergy Rash/Hives Uncoded 05/06/17 15:53 Review of Systems ROS Statement: Those systems with pertinent positive or pertinent negative responses have been documented in the HPI. ROS Other: All systems not noted in ROS Statement are negative. Constitutional: Denies: fever Eyes: Denies: eye pain ENT: Denies: ear pain Respiratory: Denies: cough Cardiovascular: Denies: chest pain Endocrine: Denies: fatigue Gastrointestinal: Denies: abdominal pain Genitourinary: Denies: dysuria Musculoskeletal: Denies: back pain Skin: Denies: rash Neurological: Reports: weakness (Patient's legs felt weak and she could not walk ), abnormal gait, vertigo. Denies: paresthesias Past Medical History Past Medical History: Asthma, Coronary Artery Disease (CAD), COPD, CVA/TIA, Diabetes Mellitus, Hyperlipidemia, Hypertension, Pneumonia Additional Past Medical History / Comment(s): IBS, narcolepsy with cataplexy History of Any Multi-Drug Resistant Organisms: None Reported Past Surgical History: Appendectomy, Breast Surgery, Heart Catheterization, Hernia Repair, Hysterectomy Additional Past Surgical History / Comment(s): BILATERAL CATARACTS. Rt lumpectomy - neg, D&C. Past Anesthesia/Blood Transfusion Reactions: No Reported Reaction Past Psychological History: Anxiety, Depression Smoking Status: Never smoker Past Alcohol Use History: None Reported Past Drug Use History: None Reported - Past Family History Mother Family Medical History: Hyperlipidemia, Hypertension Additional Family Medical History / Comment(s): ANEMIA Father Family Medical History: Cancer, Diabetes Mellitus Additional Family Medical History / Comment(s): Stroke General Exam Limitations: altered mental status General appearance: alert, in no apparent distress Head exam: Present: atraumatic Eye exam: Present: normal appearance, PERRL, EOMI. Absent: nystagmus ENT exam: Present: normal oropharynx Neck exam: Present: normal inspection Respiratory exam: Present: normal lung sounds bilaterally Cardiovascular Exam: Present: normal rhythm, tachycardia GI/Abdominal exam: Present: soft. Absent: tenderness Extremities exam: Present: normal inspection Neurological exam: Present: alert, oriented X3, CN II-XII intact. Absent: motor sensory deficit Expanded Neurological exam: Present: protecting the airway Patient oriented to: Present: person, place, time Speech: Present: fluid speech Cranial nerves: EOM's Intact: Normal, Facial Sensation: Normal Cerebellar function: Finger to Nose: Normal Sensory exam: Upper Extremity Light Touch: Normal, Lower Extremity Light Touch: Normal Motor strength exam: RUE: 5, LUE: 5, RLE: 5, LLE: 5 Eye Response: (4) open spontaneously Motor Response: (6) obeys commands Verbal Response: (5) oriented Psychiatric exam: Present: normal affect, normal mood Skin exam: Present: normal color Course Vital Signs 05/06/17 05/06/17 15:48 18:08 Temperature 97.8 F Pulse Rate 119 H 91 Respiratory 19 18 Rate Blood Pressure 155/74 150/76 O2 Sat by Pulse 96 98 Oximetry EKG Findings - EKG Comments: EKG Findings:: Sinus tachycardia 110. SC 148. QRS 74. QT 3:30. QTC 446. Normal axis. Normal QRS. No acute ST change. Medical Decision Making - Medical Decision Making Patient reevaluated and resting comfortably in bed. Normal speech pattern. Patient feels symptom-free. Case was discussed in detail with practitioner Glen, who will admit for Dr. Brice, covering for Dr. Zaira figueroa. Speech problems previously are concerning for TIA. Unclear if dizziness was associated or not. Patient will be admitted with neurologic: Evaluation. - Lab Data Result diagrams: 05/06/17 16:43 05/06/17 16:43 Lab Results 05/06/17 05/06/17 05/06/17 Range/Units 16:23 16:43 16:43 WBC 9.8 (3.8-10.6) k/uL RBC 5.02 (3.80-5.40) m/uL Hgb 14.8 (11.4-16.0) gm/dL Hct 42.9 (34.0-46.0) % MCV 85.3 (80.0-100.0) fL MCH 29.5 (25.0-35.0) pg MCHC 34.6 (31.0-37.0) g/dL RDW 14.5 (11.5-15.5) % Plt Count 104 L D (150-450) k/uL Neutrophils % 87 % Lymphocytes % 8 % Monocytes % 3 % Eosinophils % 1 % Basophils % 0 % Neutrophils # 8.5 H (1.3-7.7) k/uL Lymphocytes # 0.8 L (1.0-4.8) k/uL Monocytes # 0.3 (0-1.0) k/uL Eosinophils # 0.1 (0-0.7) k/uL Basophils # 0.0 (0-0.2) k/uL PT (9.0-12.0) sec INR (<1.2) APTT (22.0-30.0) sec Sodium (137-145) mmol/L Potassium (3.5-5.1) mmol/L Chloride (98-107) mmol/L Carbon Dioxide (22-30) mmol/L Anion Gap mmol/L BUN (7-17) mg/dL Creatinine (0.52-1.04) mg/dL Est GFR (CKD-EPI)AfAm (>60 ml/min/1.73 sqM) Est GFR (CKD-EPI)NonAf (>60 ml/min/1.73 sqM) Glucose (74-99) mg/dL POC Glucose (mg/dL) 112 H (75-99) mg/dL POC Glu Cover Machine Operator ID Lauro Ellis Calcium (8.4-10.2) mg/dL Total Bilirubin (0.2-1.3) mg/dL AST (14-36) U/L ALT (9-52) U/L Alkaline Phosphatase (38-126) U/L Total Creatine Kinase <20 L (30-135) U/L CK-MB (CK-2) 0.5 (0.0-2.4) ng/mL CK-MB (CK-2) Rel Index Troponin I <0.012 (0.000-0.034) ng/mL Total Protein (6.3-8.2) g/dL Albumin (3.5-5.0) g/dL 05/06/17 05/06/17 Range/Units 16:43 16:43 WBC (3.8-10.6) k/uL RBC (3.80-5.40) m/uL Hgb (11.4-16.0) gm/dL Hct (34.0-46.0) % MCV (80.0-100.0) fL MCH (25.0-35.0) pg MCHC (31.0-37.0) g/dL RDW (11.5-15.5) % Plt Count (150-450) k/uL Neutrophils % % Lymphocytes % % Monocytes % % Eosinophils % % Basophils % % Neutrophils # (1.3-7.7) k/uL Lymphocytes # (1.0-4.8) k/uL Monocytes # (0-1.0) k/uL Eosinophils # (0-0.7) k/uL Basophils # (0-0.2) k/uL PT 9.3 (9.0-12.0) sec INR 0.9 (<1.2) APTT 21.3 L (22.0-30.0) sec Sodium 142 (137-145) mmol/L Potassium 3.7 (3.5-5.1) mmol/L Chloride 104 (98-107) mmol/L Carbon Dioxide 28 (22-30) mmol/L Anion Gap 10 mmol/L BUN 13 (7-17) mg/dL Creatinine 0.60 (0.52-1.04) mg/dL Est GFR (CKD-EPI)AfAm >90 (>60 ml/min/1.73 sqM) Est GFR (CKD-EPI)NonAf >90 (>60 ml/min/1.73 sqM) Glucose 122 H (74-99) mg/dL POC Glucose (mg/dL) (75-99) mg/dL POC Glu Cover Machine Operator ID Calcium 9.7 (8.4-10.2) mg/dL Total Bilirubin 1.1 (0.2-1.3) mg/dL AST 17 (14-36) U/L ALT 29 (9-52) U/L Alkaline Phosphatase 82 (38-126) U/L Total Creatine Kinase (30-135) U/L CK-MB (CK-2) (0.0-2.4) ng/mL CK-MB (CK-2) Rel Index Troponin I (0.000-0.034) ng/mL Total Protein 6.8 (6.3-8.2) g/dL Albumin 4.1 (3.5-5.0) g/dL - Radiology Data Radiology results: report reviewed (Computed tomography scan of the brain shows stable exam, no acute abnormality.), image reviewed (Chest x-ray shows no acute process) Disposition Clinical Impression: TIA (transient ischemic attack) Disposition: ADMITTED IP TO THIS [facility] Referrals: Chris Caicedo DO [Primary Care Provider] - 1-2 days Decision Time: 18:29
[2017-05-06 16:55] LABS: Basophils % (A) 0 %; Eosinophils # (A) 0.1 k/uL (0-0.7); Eosinophils % (A) 1 %; HCT 42.9 % (34.0-46.0); HGB 14.8 gm/dL (11.4-16.0); Lymphocytes # (A) 0.8 k/uL (1.0-4.8); Lymphocytes % (A) 8 %; MCH 29.5 pg (25.0-35.0); MCHC 34.6 g/dL (31.0-37.0); MCV 85.3 fL (80.0-100.0); Mean Platelet Volume 7.3; Monocytes # (A) 0.3 k/uL (0-1.0); Monocytes % (A) 3 %; Neutrophils # (A) 8.5 k/uL (1.3-7.7); Neutrophils % (A) 87 %; RBC 5.02 m/uL (3.80-5.40); RDW 14.5 % (11.5-15.5); WBC 9.8 k/uL (3.8-10.6)
[2017-05-06 16:56] LABS: Platelet Count 104 k/uL (150-450)
[2017-05-06 17:03] LABS: ALT 29 U/L (9-52); AST 17 U/L (14-36); Albumin 4.1 g/dL (3.5-5.0); Alkaline Phosphatase 82 U/L (38-126); Anion Gap 10 mmol/L; Blood Urea Nitrogen 13 mg/dL (7-17); Calcium 9.7 mg/dL (8.4-10.2); Carbon Dioxide 28 mmol/L (22-30); Chloride 104 mmol/L (98-107); Glucose 122 mg/dL (74-99); INR 0.9 (<1.2); Potassium 3.7 mmol/L (3.5-5.1); Prothrombin Time 9.3 sec (9.0-12.0); Sodium 142 mmol/L (137-145); Total Bilirubin 1.1 mg/dL (0.2-1.3); Total Protein 6.8 g/dL (6.3-8.2)
[2017-05-06 17:07] LABS: Creatine Kinase <20 U/L (30-135)
[2017-05-06 17:14] LABS: Partial Thromboplastin Time 21.3 sec (22.0-30.0)
--- NOTE | 2017-05-06 17:14 | XR ---
EXAMINATION: XR chest 2V DATE AND TIME: 05/06/2017 5:05 PM ORDERING PROVIDER: Meño Rodriguez DO CLINICAL INDICATION: altered mental status TECHNIQUE: Department protocol COMPARISON: 04/18/2017 DESCRIPTION: The lungs are clear. The pleural spaces are negative. EKG leads. The cardiac silhouette is not enlarged. The mediastinal and pleural silhouettes are unrema rkable. The skeletal structures are intact without focal findings. The soft tissues are unremarkable. IMPRESSION: NO ACUTE PROCESS.
[2017-05-06 17:19] LABS: Creatine Kinase MB 0.5 ng/mL (0.0-2.4); Troponin I <0.012 ng/mL (0.000-0.034)
--- NOTE | 2017-05-06 19:52 | CT ---
EXAMINATION TYPE: CT angio head neck with contrast and with 3-D reconstruction renderings. DATE OF EXAM: 05/06/2017 HISTORY: Dizziness and weakness COMPARISON: NONE CT DLP: 295.6 mGycm. Automated Exposure Control for Dose Reduction was Utilized. TECHNIQUE: CTA scan of the neck is performed with IV Contrast, patient injected with 65 mL of Omnipa que 350, axial images are obtained, coronal and sagittal reformatted images are reviewed. Three-D rec onstructed images are created on an independent workstation and reviewed. CT NECK FINDINGS: The bilateral carotid systems are widely patent. The bilateral vertebral artery sys tems are widely patent. The venous structures are unremarkable. The airways and lung apices are negat melissa. There is no soft tissue mass or adenopathy. Skeletal structures are unremarkable. CT HEAD FINDINGS: The anterior circulation is well visualized. There is no aneurysm or focal stenosis . The posterior circulation is also well-visualized. There is no aneurysm or focal stricture. The int racranial contents are unremarkable. Calvarium is negative. Paranasal sinuses and mastoid sinus air c ells and middle ear cavities are clear. IMPRESSION: NEGATIVE EXAMINATION, CT ANGIOGRAPHY HEAD NECK W CON.
[2017-05-06 20:43] VITALS: BMI 32.1
[2017-05-06] MEDS: SODIUM CHLORIDE 0.9% 1,000 ML IV SCH (20:51)
[2017-05-06] MEDS: CLOPIDOGREL 75 MG TAB PO SCH (20:53)
[2017-05-07] MEDS ORDERED: clonazePAM 0.5 MG TAB PO PRN (00:41)
[2017-05-07] MEDS ORDERED: LIDOCAINE 5% PATCH TOPICAL PRN (00:41)
[2017-05-07] MEDS ORDERED: HYDROcodone/APAP 7.5-325MG 1 EACH TAB PO PRN (00:41)
[2017-05-07] MEDS ORDERED: DICYCLOMINE 10 MG CAP PO PRN (00:41)
[2017-05-07] MEDS ORDERED: INSULIN LISPRO (For Pump) 100 UNIT/ML VIAL SQ-PUMP SCH (00:45)
[2017-05-07] MEDS: DULoxetine HCL 30 MG CAPSULE.DR PO SCH ×3 (05:13→21:24)
[2017-05-07] MEDS: PRAMIPEXOLE 1 MG TAB PO SCH ×2 (05:13→21:25)
[2017-05-07] MEDS: MONTELUKAST 10 MG TAB PO SCH ×2 (05:13→21:24)
[2017-05-07] MEDS: SODIUM CHLORIDE 0.9% 1,000 ML IV SCH (05:14)
[2017-05-07 05:19] LABS: Cholesterol 198 mg/dL (<200); HDL Cholesterol 44 mg/dL (40-60); LDL Cholesterol,Calculated 112 mg/dL (0-99); Triglycerides 212 mg/dL (<150)
--- NOTE | 2017-05-07 07:16 | HP ---
HISTORY AND PHYSICAL DATE OF SERVICE: 05/07/2017 CHIEF COMPLAINTS: Fall and as well as change in mental status. HISTORY OF PRESENT ILLNESS: This 71-year-old woman with a past medical history of multiple medical problems being followed by Dr. Caicedo in the outpatient setting was recently admitted COPD exacerbation as well as asthma acute exacerbation. The patient was having a followup in Dr. Oro's office and the patient apparently stumbled and had a near syncopal episode and the patient complains of weakness. Patient also noted to have some change in mental status. Patient taken to [facility] Emergency Room and was admitted for further evaluation and treatment. The initial evaluation including CT scan of the brain did not show acute abnormality including CT angio. The patient had some weakness on the right side. The patient also complaining of right upper quadrant abdominal pain also. There is no history of any fever, rigors or chills at this time. PAST MEDICAL HISTORY: History of asthma, history of CAD, COPD, history of CVA, TIA, diabetes, hypertension, history pneumonia, irritable bowel syndrome. MEDICATIONS: Medications prior to admission include home medications are: 1. Hydrochlorothiazide 12.5 mg p.o. daily. 2. Lexapro 5 mg p.o. daily. 3. Cymbalta 30 mg p.o. b.i.d. 4. Plavix 75 mg q.h.s. 5. Vitamin D3, 1000 daily. 6. Baclofen 10 to 20 mg p.o. q.h.s. 7. Lipitor 80 mg q.h.s. 8. [place] 7.5 q.6 p.r.n. 9. Advair 500/50 one puff b.i.d. 10.Zetia 10 mg q.h.s. 11.Bentyl 10 mg q.i.d. p.r.n. 12.Klonopin 0.5 mg q.h.s. p.r.n. 13.Lyrica 200 mg p.o. t.i.d. 14.Mirapex 1 mg p.o. q.h.s. 15.Protonix 40 mg q.a.m. 16.Singulair 10 mg q.h.s. 17.Provigil 100 mg p.o. daily. 18.Lidoderm patch one 5% topical daily p.r.n. 19.Insulin pump. 20.Ultram. 21.Januvia 100 mg q.a.m. ALLERGIES: Allergies are ASPIRIN, IBUPROFEN, ATROVENT, DEMEROL, DILAUDID, METFORMIN, MORPHINE, TRAZODONE, AMBIEN, MSG. FAMILY HISTORY: History of hypertension, hyperlipidemia and anemia in the family. SOCIAL HISTORY: No history of smoking. No history of alcohol intake. REVIEW OF SYSTEMS: ENT: As mentioned earlier. CARDIOVASCULAR SYSTEM: No angina. RESPIRATORY SYSTEM: No cough. GI: As mentioned earlier. : No dysuria. NERVOUS SYSTEM: As mentioned earlier. ALLERGY/IMMUNOLOGY: Asthma. MUSCULOSKELETAL: As mentioned earlier. HEMATOLOGY/ONCOLOGY: No history of anemia. ENDOCRINE: As mentioned earlier. CONSTITUTIONAL: As mentioned earlier. DERMATOLOGY: Negative. RHEUMATOLOGY: Negative. PSYCHIATRY: As mentioned earlier. PHYSICAL EXAMINATION: The patient is alert and oriented x3. Pulse is 75, blood pressure 131/62, respirations 16, temperature 97.1, pulse ox 98% on room air. HEENT: Conjunctivae normal. Oral mucosa moist. Neck is no jugular venous distention. No carotid bruit. No lymph node enlargement. CARDIOVASCULAR: S1 and S2 muffled. No S3, no S4. RESPIRATORY: Breath sounds diminished at the bases. No rhonchi. No crackles. ABDOMEN: Soft, nontender. No mass palpable. LEGS: No edema, no swelling. NERVOUS SYSTEM: Higher functions as mentioned earlier. Moves all 4 limbs. No focal motor or sensory deficits. Minimal weakness on the right side and finger-nose incoordination also present. LYMPHATICS: No lymphadenopathy of the neck, axillae or groin. SKIN: No ulcer, rash or bleeding. LABS: WBC 9.8, hemoglobin 14.8, platelets 104. ASSESSMENT: 1. Presyncope, possibly acute transient ischemic attack or cerebrovascular accident involving the left hemisphere causing right-sided weakness. 2. Chronic obstructive pulmonary disease. 3. Asthma. 4. Cerebrovascular accident, transient ischemic attack history. 5. Diabetes mellitus type 2. 6. Hypertension. 7. Hyperlipidemia. 8. History of pneumonia. 9. History of irritable bowel syndrome. 10.History of narcolepsy and cataplexy. 11.History of anxiety, depression. RECOMMENDATIONS AND DISCUSSION: This 71-year-old woman who presented with multiple complex medical issues, will monitor the patient closely. Continue the current medications, continue symptomatic treatment. Neurological consultation. Otherwise, we will resume the home medications and continue to monitor. The antiplatelet agents will be continued and prognosis guarded. Also recommend MRI scan of the brain. Guarded prognosis because of multiple complex medical issues. Further recommendations to follow. A copy of dictation forwarded to Dr. Caicedo who is the primary physician. KELLY / QUENTIN: [id number] /
[2017-05-07 08:14] LABS: Appearance,Urine Clear (Clear); Bacteria,Urine Rare /hpf; Bilirubin,Urine Negative (Negative); Blood,Urine Negative (Negative); Color,Urine Light Yellow; Glucose,Urine (UA) Negative (Negative); Ketones,Urine Negative (Negative); Leukocyte Esterase,Urine Moderate (Negative); Mucus,Urine Rare /hpf; Nitrite,Urine Negative (Negative); Protein,Urine Negative (Negative); RBC,Urine 2 /hpf (0-5); Squamous Epithelial Cell,Urine 1 /hpf (0-4); Urobilinogen,Urine <2.0 mg/dL (<2.0); WBC,Urine 11 /hpf (0-5)
[2017-05-07] MEDS: HEPARIN SODIUM,PORCINE 5,000 UNIT/ML 1 ML VIAL SQ SCH ×2 (08:26→21:24)
[2017-05-07] MEDS: CHOLECALCIFEROL 1,000 UNIT TAB PO SCH (08:27)
[2017-05-07] MEDS: HYDROCHLOROTHIAZIDE 12.5 MG CAP PO SCH (08:27)
[2017-05-07] MEDS: LINAGLIPTIN 5 MG TABLET PO SCH (08:27)
[2017-05-07] MEDS: PREGABALIN 100 MG CAP PO SCH ×3 (08:27→21:25)
[2017-05-07] MEDS: PANTOPRAZOLE 40 MG TABLET PO SCH (08:27)
[2017-05-07] MEDS: MODAFINIL 100 MG TAB PO SCH (08:27)
--- NOTE | 2017-05-07 08:27 | US ---
EXAMINATION TYPE: US abdomen limited DATE OF EXAM: 05/07/2017 COMPARISON: CT CLINICAL HISTORY: Abdominal Pain. Pt states RUQ tenderness EXAM MEASUREMENTS: Liver Length: 16.4 cm Gallbladder Wall: 0.2 cm CBD: 0.4 cm Right Kidney: 11.1 x 5.0 x 5.2 cm Pancreas: wnl, tail obscured by overlying bowel gas Liver: Appeared wnl Gallbladder: Two, small mobile gallstones Evidence for sonographic Bruner's sign: Yes CBD: wnl Right Kidney: wnl, lobulated contour IMPRESSION: Cholelithiasis without sonographic evidence of acute cholecystitis. Sonographic Bruner's sign is positive and HIDA scan with CCK could be utilized for further evaluation of chronic cholecyst itis or biliary dyskinesia.
[2017-05-07] MEDS: SYMBICORT 160-4.5 MCG INHALER INHALATION SCH ×2 (08:50→19:36)
[2017-05-07] MEDS: traMADol 50 MG TAB PO SCH ×3 (09:53→21:25)
--- NOTE | 2017-05-07 11:00 | ECHOF ---
Referral Reason:Thrombus MEASUREMENTS -------- HEIGHT: 132.1 cm WEIGHT: 69.4 kg BP: 129/73 IVSd: 1.1 cm (0.6 - 1.1) LVIDd: 3.3 cm (3.9 - 5.3) LVPWd: 1.2 cm (0.6 - 1.1) IVSs: 1.6 cm LVIDs: 1.8 cm LVPWs: 1.6 cm LAESV Index (A-L): 23.64 ml/m Ao Diam: 2.6 cm (2.0 - 3.7) AV Cusp: 1.8 cm (1.5 - 2.6) LA Diam: 3.2 cm (2.7 - 3.8) MV EXCURSION: 14.230 mm (> 18.000) MV EF SLOPE: 71 mm/s (70 - 150) EPSS: 0.3 cm MV E Leonardo: 0.79 m/s MV DecT: 258 ms MV A Leonardo: 0.72 m/s MV E/A Ratio: 1.10 RAP: 5.00 mmHg RVSP: 26.79 mmHg FINDINGS -------- Sinus rhythm. This was a technically good study. The left ventricular size is normal. Left ventricular wall thickness is normal. Overall left vent ricular systolic function is normal with, an EF between 55 - 60 %. The right ventricle is normal in size and function. The left atrium is normal in size. The right atrium is normal in size. The aortic valve is trileaflet, and appears structurally normal. No aortic stenosis or regurgitation. The mitral valve leaflets are mildly thickened. Moderate mitral regurgitation is present. Mild tricuspid regurgitation present. The right ventricular systolic pressure, as measured by Doppl er, is 26.79mmHg. Pulmonic valve appears structurally normal. The aortic root size is normal. Normal inferior vena cava with normal inspiratory collapse consistent with estimated right atrial pre ssure of 5 mmHg. The pericardium is normal. CONCLUSIONS -------- 1. Sinus rhythm. 2. This was a technically good study. 3. The left ventricular size is normal. 4. Left ventricular wall thickness is normal. 5. Overall left ventricular systolic function is normal with, an EF between 55 - 60 %. 6. The right ventricle is normal in size and function. 7. The left atrium is normal in size. 8. The right atrium is normal in size. 9. The aortic valve is trileaflet, and appears structurally normal. No aortic stenosis or regurgitati on. 10. The mitral valve leaflets are mildly thickened. 11. Moderate mitral regurgitation is present. 12. Mild tricuspid regurgitation present. 13. The right ventricular systolic pressure, as measured by Doppler, is 26.79mmHg. 14. Pulmonic valve appears structurally normal. 15. The aortic root size is normal. 16. Normal inferior vena cava with normal inspiratory collapse consistent with estimated right atrial pressure of 5 mmHg. 17. The pericardium is normal. COMMERCIAL MANAGEMENT ACCOUNTANT: Malena Massey RDCS
[2017-05-07] MEDS ORDERED: INSULIN PUMP TARGET GLUCOSE 1 EACH MISC MISCELLANE PRN (11:30)
[2017-05-07] MEDS ORDERED: INSPUCOR MISCELLANE PRN (11:30)
[2017-05-07] MEDS ORDERED: INSULIN PUMP ACTIVE INSULIN 1 EACH MISC MISCELLANE PRN (11:30)
[2017-05-07] MEDS ORDERED: INSULIN ASPART 100 UNIT/ML 1 ML 10 ML VIAL SQ PRN (11:30)
[2017-05-07] MEDS ORDERED: INSULIN PUMP BASAL RATES 1 EACH MISC MISCELLANE PRN (11:30)
[2017-05-07] MEDS: INSULIN PUMP MEAL BOLUS 1 UNIT MISC MISCELLANE SCH ×3 (12:26→21:33)
[2017-05-07] MEDS: ESCITALOPRAM 5 MG TAB PO SCH (14:01)
--- NOTE | 2017-05-07 15:32 | PN ---
PROGRESS NOTE DATE OF SERVICE: 05/07/2017 This is a 71-year-old woman who was admitted with fall and change in mental status and evaluated for suspected TIA. A 2D echo with Doppler was done as a part of workup, which showed ejection fraction about 50% to 60%. The patient also had abdominal ultrasound done today, showed cholelithiasis without any evidence of cholecystitis. No chest pain. No palpitations. No fever. PHYSICAL EXAM: Alert and oriented x3. Pulse is 98, blood pressure 120/61, respiration 18. temperature 97.1, pulse ox 96% on room air. HEENT: Conjunctivae normal. NECK: No jugular venous distension. CARDIOVASCULAR SYSTEM: S1, S2, muffled. RESPIRATORY: Breath sounds diminished at the bases, no rhonchi, no crackles. ABDOMEN: Soft. Mild diffuse discomfort in the upper part of the abdomen. No guarding. No mass palpable. LEGS: No edema, no swelling. NERVOUS SYSTEM: Diffuse weakness. Mild tremors also present. LABS: Platelets are 104. Other labs are noted. Triglycerides are 212, LDL is 112. UA noted. ASSESSMENT: 1. Presyncope, possible acute transient ischemic attack or cerebrovascular accident involving the left MCA causing right-sided weakness. Right-sided incoordination slightly more than the left. 2. Chronic obstructive pulmonary disease. 3. Asthma. 4. Cerebrovascular accident, transient ischemic attack. 5. Diabetes mellitus type 2. 6. Hypertension. 7. Hyperlipidemia. 8. History of pneumonia. 9. History of irritable bowel syndrome. 10.History of narcolepsy and cataplexy. 11.Anxiety, depression. 12.Possible urinary tract infection. 13.Hyperlipidemia. RECOMMENDATION: In this 71-year-old woman who presented with multiple complex medical issues, will monitor the patient closely. Continue with the current management and symptomatic treatment. As this time, I recommend continue with antiplatelet agents. MRI of the brain, Neurology evaluation, Surgical evaluation. Otherwise, monitor closely. Further recommendations to follow. See orders for details. MMODL / IJN: [id number] /
--- NOTE | 2017-05-07 16:07 | P.GSCN ---
History of Present Illness Consult date: 05/07/17 Reason for Consult: Cholelithiasis History of present illness: Patient brought to the hospital with complaints of mental status changes. Being worked up for a CVA at this time. Admits to having some right upper quadrant crampy pain at times over the last several weeks. Ultrasound abdomen showed gallstones which were mobile. Ultrasonographic Bruner sign positive. Labs appeared normal. Afebrile. No change in the color of her skin urine or stool. Review of Systems Patient denies any acute changes in his hearing or vision, chest pain, shortness of breath, rectal bleeding, melena, dysuria, hematuria, lightheadedness, unexplained weight loss Past Medical History Past Medical History: Asthma, Coronary Artery Disease (CAD), COPD, CVA/TIA, Diabetes Mellitus, Hyperlipidemia, Hypertension, Pneumonia Additional Past Medical History / Comment(s): IBS, narcolepsy with cataplexy History of Any Multi-Drug Resistant Organisms: None Reported Past Surgical History: Appendectomy, Breast Surgery, Heart Catheterization, Hernia Repair, Hysterectomy Additional Past Surgical History / Comment(s): BILATERAL CATARACTS. Rt lumpectomy - neg, D&C. Past Anesthesia/Blood Transfusion Reactions: No Reported Reaction Past Psychological History: Anxiety, Depression Smoking Status: Never smoker Past Alcohol Use History: None Reported Past Drug Use History: None Reported - Past Family History Mother Family Medical History: Hyperlipidemia, Hypertension Additional Family Medical History / Comment(s): ANEMIA Father Family Medical History: Cancer, Diabetes Mellitus Additional Family Medical History / Comment(s): Stroke Medications and Allergies Home Medications Medication Instructions Recorded Confirmed Type Atorvastatin [Lipitor] 80 mg PO HS 03/21/14 05/06/17 History Baclofen 10 - 20 mg PO HS 03/21/14 05/06/17 History Dicyclomine [Bentyl] 10 mg PO QID PRN 03/21/14 05/06/17 History Hydrocodone/Acetaminophen [Conklin 1 tab PO Q6HR PRN 03/21/14 05/06/17 History 7.5-325] Modafinil [Provigil] 100 mg PO DAILY 03/21/14 05/06/17 History Pantoprazole Sodium [Protonix] 40 mg PO QAM 03/21/14 05/06/17 History Pramipexole Di-HCl [Mirapex] 1 mg PO HS 03/21/14 05/06/17 History Pregabalin [Lyrica] 200 mg PO TID 03/21/14 05/06/17 History sitaGLIPtin PHOSPHATE [Januvia] 100 mg PO QAM 03/21/14 05/06/17 History traMADol HCl [Ultram] 50 - 100 mg PO TID 05/22/14 05/06/17 History Lidocaine 5% Patch [Lidoderm 5% 1 patch TOPICAL DAILY PRN 03/09/15 05/06/17 History Patch] Montelukast [Singulair] 10 mg PO HS 04/11/15 05/06/17 History Cholecalciferol [Vitamin D3] 1,000 unit PO DAILY 03/12/16 05/06/17 History Ezetimibe [Zetia] 10 mg PO HS 03/12/16 05/06/17 History INSULIN LISPRO (For Pump) [humaLOG See Protocol SQ-PUMP CONTINUOUS 04/18/17 History (For Pump)] clonazePAM [KlonoPIN] 0.5 mg PO HS PRN tab 04/23/17 05/06/17 Rx Clopidogrel Bisulfate [Plavix] 75 mg PO HS 05/06/17 05/06/17 History DULoxetine HCL [Cymbalta] 30 mg PO BID 05/06/17 05/06/17 History Escitalopram [Lexapro] 5 mg PO DAILY 05/06/17 05/06/17 History Fluticasone/Salmeterol [Advair 1 puff INHALATION RT-BID 05/06/17 05/06/17 History 500-50 Diskus] Hydrochlorothiazide 12.5 mg PO DAILY 05/06/17 05/06/17 History Allergies Allergy/AdvReac Type Severity Reaction Status Date / Time aspirin Allergy Swelling Verified 05/06/17 16:56 ibuprofen Allergy Swelling Verified 05/06/17 16:56 ipratropium bromide Allergy Swelling Verified 05/06/17 16:56 [From Atrovent] meperidine HCl [From Demerol] Allergy Rash/Hives Verified 05/06/17 16:56 hydromorphone HCl AdvReac Nausea & Verified 05/06/17 16:56 [From Dilaudid] Vomiting metformin AdvReac Unknown Verified 05/06/17 15:53 morphine AdvReac Vomiting Verified 05/06/17 16:56 trazodone AdvReac Weakness Verified 05/06/17 16:56 zolpidem tartrate AdvReac Hallucinati Verified 05/06/17 16:56 [From Ambien] ons MSG Allergy Rash/Hives Uncoded 05/06/17 15:53 Surgical - Exam Vital Signs Temp Pulse Resp BP Pulse Ox 97.8 F 119 H 19 155/74 96 05/06/17 15:48 05/06/17 15:48 05/06/17 15:48 05/06/17 15:48 05/06/17 15:48 GENERAL: Well developed, well nourished HEENT: Normocephalic, sclera non-icteric CHEST: No deformities ABDOMEN: Mild right upper quadrant tenderness, nondistended EXTREMITIES: No edema NEURO: Alert and appropriate Results - Labs 05/06/17 16:43 05/06/17 16:43 Abnormal Lab Results - Last 24 Hours (Table) 05/06/17 05/06/17 05/06/17 Range/Units 16:23 16:43 16:43 Plt Count 104 L D (150-450) k/uL Neutrophils # 8.5 H (1.3-7.7) k/uL Lymphocytes # 0.8 L (1.0-4.8) k/uL APTT (22.0-30.0) sec Glucose (74-99) mg/dL POC Glucose (mg/dL) 112 H (75-99) mg/dL Total Creatine Kinase <20 L (30-135) U/L Triglycerides (<150) mg/dL LDL Cholesterol, Calc (0-99) mg/dL Ur Leukocyte Esterase (Negative) Urine WBC (0-5) /hpf Urine Bacteria (None) /hpf Urine Mucus (None) /hpf 05/06/17 05/06/17 05/06/17 Range/Units 16:43 16:43 16:43 Plt Count (150-450) k/uL Neutrophils # (1.3-7.7) k/uL Lymphocytes # (1.0-4.8) k/uL APTT 21.3 L (22.0-30.0) sec Glucose 122 H (74-99) mg/dL POC Glucose (mg/dL) (75-99) mg/dL Total Creatine Kinase (30-135) U/L Triglycerides 212 H (<150) mg/dL LDL Cholesterol, Calc 112 H (0-99) mg/dL Ur Leukocyte Esterase (Negative) Urine WBC (0-5) /hpf Urine Bacteria (None) /hpf Urine Mucus (None) /hpf 05/07/17 Range/Units 07:15 Plt Count (150-450) k/uL Neutrophils # (1.3-7.7) k/uL Lymphocytes # (1.0-4.8) k/uL APTT (22.0-30.0) sec Glucose (74-99) mg/dL POC Glucose (mg/dL) (75-99) mg/dL Total Creatine Kinase (30-135) U/L Triglycerides (<150) mg/dL LDL Cholesterol, Calc (0-99) mg/dL Ur Leukocyte Esterase Moderate H (Negative) Urine WBC 11 H (0-5) /hpf Urine Bacteria Rare H (None) /hpf Urine Mucus Rare H (None) /hpf Diabetes panel 05/06/17 05/06/17 Range/Units 16:43 16:43 Sodium 142 (137-145) mmol/L Potassium 3.7 (3.5-5.1) mmol/L Chloride 104 (98-107) mmol/L Carbon Dioxide 28 (22-30) mmol/L BUN 13 (7-17) mg/dL Creatinine 0.60 (0.52-1.04) mg/dL Glucose 122 H (74-99) mg/dL Calcium 9.7 (8.4-10.2) mg/dL AST 17 (14-36) U/L ALT 29 (9-52) U/L Alkaline Phosphatase 82 (38-126) U/L Total Protein 6.8 (6.3-8.2) g/dL Albumin 4.1 (3.5-5.0) g/dL Triglycerides 212 H (<150) mg/dL HDL Cholesterol 44 (40-60) mg/dL Calcium panel 05/06/17 Range/Units 16:43 Calcium 9.7 (8.4-10.2) mg/dL Albumin 4.1 (3.5-5.0) g/dL Pituitary panel 05/06/17 Range/Units 16:43 Sodium 142 (137-145) mmol/L Potassium 3.7 (3.5-5.1) mmol/L Chloride 104 (98-107) mmol/L Carbon Dioxide 28 (22-30) mmol/L BUN 13 (7-17) mg/dL Creatinine 0.60 (0.52-1.04) mg/dL Glucose 122 H (74-99) mg/dL Calcium 9.7 (8.4-10.2) mg/dL Adrenal panel 05/06/17 Range/Units 16:43 Sodium 142 (137-145) mmol/L Potassium 3.7 (3.5-5.1) mmol/L Chloride 104 (98-107) mmol/L Carbon Dioxide 28 (22-30) mmol/L BUN 13 (7-17) mg/dL Creatinine 0.60 (0.52-1.04) mg/dL Glucose 122 H (74-99) mg/dL Calcium 9.7 (8.4-10.2) mg/dL Total Bilirubin 1.1 (0.2-1.3) mg/dL AST 17 (14-36) U/L ALT 29 (9-52) U/L Alkaline Phosphatase 82 (38-126) U/L Total Protein 6.8 (6.3-8.2) g/dL Albumin 4.1 (3.5-5.0) g/dL Assessment and Plan (1) Chronic cholecystitis Narrative/Plan: Continued neurologic workup. Advised outpatient follow-up evaluation and probable elective cholecystectomy. We will follow with you. Current Visit: Yes Status: Acute Code(s): K81.1 - CHRONIC CHOLECYSTITIS SNOMED Code(s): 19156642
[2017-05-07] MEDS: CLOPIDOGREL 75 MG TAB PO SCH (17:18)
--- NOTE | 2017-05-07 18:14 | MR ---
EXAMINATION TYPE: MR brain wo/w con DATE OF EXAM: 05/07/2017 COMPARISON: CT brain 05/06/2017 HISTORY: Cerebral vascular accident, altered mental status TECHNIQUE: Multiplanar, multisequence images of the brain and brainstem is performed without and with IV contras t, utilizing 7.5 mL intravenous Gadavist . FINDINGS: Diffusion weighted images demonstrate no evidence of a recent infarct or other diffusion ab normality. There is no extra-axial fluid collection or significant white matter signal abnormality, some minimal hyperintensity in the periventricular and deep white matter on T2 and inversion recovery sequences likely due to chronic small vessel ischemia. The ventricular system and cisternal spaces are normal in size and appearance. The brain volume is age appropriate. Midline structures demonstrate normal morphology. The craniocervical junction appears within normal limits. Post contrast images demonstrate no abnormal enhancement. The dural venous sinuses appear pa tent. The visualized sinuses are clear and the globes are intact. IMPRESSION: Age-related changes. Cerebral vascular accident is not evident.
[2017-05-07 20:24] LABS: Hemoglobin A1C 7.7 % (4.0-6.0)
[2017-05-07] MEDS: BACLOFEN 10 MG TAB PO SCH (21:24)
[2017-05-07] MEDS: EZETIMIBE 10 MG TAB PO SCH (21:24)
[2017-05-07] MEDS: ATORVASTATIN 80 MG TAB PO SCH (21:25)
--- NOTE | 2017-05-07 23:02 | CONS ---
CONSULTATION DATE OF CONSULTATION: 05/07/2017. CHIEF COMPLAINT: Right-sided weakness. HISTORY OF PRESENT ILLNESS: Mrs. Juarez is a pleasant 71-year-old female who is being evaluated by the neurology service per the request of Dr. Brice for right-sided weakness. The patient was brought in to [facility] Emergency Room after she had a near-syncopal episode and altered mental status at Dr. Oro's office. She was there for a followup visit. The patient remembers feeling dizzy and she was trying to get up from her chair, but was unable to do so. She was noticed to be confused. In the emergency room, she was noticed to have some weakness on her right side. A CT scan of the brain was done which showed no acute abnormalities. Generalized atrophy was seen. Her CBC was normal except for thrombocytopenia at 104,000. Her comprehensive metabolic profile and INR were normal. Her cardiac enzymes were negative. Her urinalysis showed 11 WBCs with moderate leukocyte esterase. Her fasting lipid panel was normal except for elevated LDL at 112. The patient is already on Zetia and Lipitor 80 mg daily. The patient does take Plavix 75 mg daily at home for anti-platelet therapy, as she does have a previous history of stroke and transient ischemic attacks. The patient was admitted for further workup and management. At the time of my evaluation, she is lying in her bed and appears to be in no acute distress. She continues to report some weakness on her right side, but she states that this has improved. She denies any dizziness at this time and she appears to be back to her baseline from a mental standpoint. PAST MEDICAL HISTORY: Asthma, coronary artery disease, chronic obstructive pulmonary disease, stroke, transient ischemic attack, diabetes, hypertension, dyslipidemia, irritable bowel syndrome, restless legs syndrome, chronic low back pain, gastroesophageal reflux disease. FAMILY HISTORY: Positive for hypertension and dyslipidemia. SOCIAL HISTORY: She denies any tobacco, alcohol or drug use. HOME MEDICATIONS: Reviewed in the chart. ALLERGIES: ASPIRIN, MOTRIN, ATROVENT, DEMEROL, DILAUDID, METFORMIN, MORPHINE, AMBIEN, MSG, TRAZODONE. REVIEW OF SYSTEMS: CONSTITUTIONAL: Positive for fatigue. EYES: Negative. ENT: Positive for nasal irritation from breathing treatments. CARDIOVASCULAR: Negative. RESPIRATORY: Positive for occasional shortness of breath. NEUROLOGICAL: As mentioned above. GASTROINTESTINAL: Positive for occasional heartburn. GENITOURINARY: Negative. PSYCHIATRIC: Negative. ENDOCRINE: Positive for diabetes. DERMATOLOGICAL: Negative. PSYCHIATRIC: Negative. PHYSICAL EXAM: Vital signs show a temperature of 97.1, pulse 83, respiration 18, blood pressure 135/82. GENERAL APPEARANCE: The patient is a well-developed female, who appears to be in no acute distress. HEENT: Normocephalic, atraumatic. No facial asymmetry is seen. NECK: Supple with no masses felt. CARDIOVASCULAR: Regular rate and rhythm. ABDOMEN: Nontender, nondistended. Extremities showed no edema or clubbing. NEUROLOGICAL: The patient is alert, aware and oriented x3. Speech and language are normal. Strength is 5/5 on the left side and 5-/5 on the right side. Sensory exam was normal to light touch in all 4 extremities. No facial asymmetry seen on cranial nerve testing. No tremors or seizure-like activity is seen. IMPRESSION: 1. Acute ischemic stroke, left middle cerebral artery distribution. 2. Right hemiparesis. 3. Thrombocytopenia. 4. Acute urinary tract infection. 5. Presyncopal episode. RECOMMENDATION: The patient continues to have right hemiparesis, although the intensity has improved. A CT scan of the brain was done, which showed no acute findings. The patient did undergo an MRI of the brain and the results are pending. I will order a carotid Doppler, EEG and serum homocystine level. The patient is already on Plavix for anti- platelet therapy. The patient is on a high dose of Lipitor and on Zetia, but continues to have elevated LDL. She was counseled on diet modification. I do recommend antibiotic therapy for her urinary tract infection. Continue IV hydration as tolerated. I will continue to follow with you. Further recommendations to follow. Thank you for allowing me to participate in the care of your patient. If you have any questions, please feel free to contact me. MMODL / IJN: [id number] /
[2017-05-08 06:14] LABS: Basophils # (A) 0.1 k/uL (0-0.2); Basophils % (A) 1 %; Eosinophils # (A) 0.2 k/uL (0-0.7); Eosinophils % (A) 2 %; HCT 36.3 % (34.0-46.0); HGB 12.4 gm/dL (11.4-16.0); Lymphocytes % (A) 14 %; MCV 85.3 fL (80.0-100.0); Mean Platelet Volume 7.3; Monocytes # (A) 0.3 k/uL (0-1.0); Monocytes % (A) 4 %; Neutrophils # (A) 5.8 k/uL (1.3-7.7); Neutrophils % (A) 78 %; Platelet Count 118 k/uL (150-450); RBC 4.26 m/uL (3.80-5.40); RDW 14.4 % (11.5-15.5); WBC 7.5 k/uL (3.8-10.6)
[2017-05-08] MEDS: INSULIN PUMP MEAL BOLUS 1 UNIT MISC MISCELLANE SCH ×4 (06:17→20:58)
[2017-05-08] MEDS: PANTOPRAZOLE 40 MG TABLET PO SCH (06:18)
[2017-05-08 06:26] LABS: Anion Gap 8 mmol/L; Blood Urea Nitrogen 16 mg/dL (7-17); Calcium 9.3 mg/dL (8.4-10.2); Carbon Dioxide 32 mmol/L (22-30); Chloride 101 mmol/L (98-107); Glucose 110 mg/dL (74-99); Potassium 3.7 mmol/L (3.5-5.1); Sodium 141 mmol/L (137-145)
[2017-05-08] MEDS: MODAFINIL 100 MG TAB PO SCH (08:09)
[2017-05-08] MEDS: CHOLECALCIFEROL 1,000 UNIT TAB PO SCH (08:09)
[2017-05-08] MEDS: DULoxetine HCL 30 MG CAPSULE.DR PO SCH ×2 (08:09→20:57)
[2017-05-08] MEDS: HEPARIN SODIUM,PORCINE 5,000 UNIT/ML 1 ML VIAL SQ SCH ×2 (08:10→20:57)
[2017-05-08] MEDS: HYDROCHLOROTHIAZIDE 12.5 MG CAP PO SCH (08:10)
[2017-05-08] MEDS: ESCITALOPRAM 5 MG TAB PO SCH (08:10)
[2017-05-08] MEDS: LINAGLIPTIN 5 MG TABLET PO SCH (08:10)
[2017-05-08] MEDS: traMADol 50 MG TAB PO SCH ×3 (08:11→21:02)
[2017-05-08] MEDS: PREGABALIN 100 MG CAP PO SCH ×3 (08:13→20:58)
[2017-05-08] MEDS: SYMBICORT 160-4.5 MCG INHALER INHALATION SCH ×2 (09:12→20:22)
[2017-05-08] MEDS: cefTRIAXone IN SWFI 1,000 MG/10 ML SYRINGE IVP SCH (15:24)
--- NOTE | 2017-05-08 16:19 | P.PN ---
Subjective Progress Note Date: 05/08/17 Principal diagnosis: Right-sided weakness Is a pleasant 71-year-old female continuing to be evaluated by the neurology service for right-sided weakness. She was brought to [facility] emergency room after a near-syncopal episode with some altered mental status. At the time she was in Dr. Oro's office. The right-sided weakness was first noted in the emergency room. Initial CT of the brain showed no acute intracranial abnormalities. She showed a possible mild urinary tract infection. He does have a history of previous stroke and TIA. She was already on Plavix, Lipitor, and Zetia. Her symptoms have mostly resolved. She says she still feels a little unsteady on her feet. At the time my exam she is resting comfortably in bed in no acute distress. She had a normal echocardiogram, normal CT angiogram of the head and neck, and her MRI of the brain showed no acute ischemia. Objective - Vital Signs Vital signs: Vital Signs Temp 97.3 F L 05/08/17 15:40 Pulse 93 05/08/17 15:40 Resp 18 05/08/17 15:40 BP 120/83 05/08/17 15:40 Pulse Ox 95 05/08/17 15:40 Intake & Output 05/07/17 05/08/17 05/08/17 18:59 06:59 18:59 Intake Total 476 Output Total 600 600 Balance -124 -600 Weight 69.1 kg Intake: Oral 476 Output: Urine 600 600 Other: Voiding Method Toilet Toilet # Voids 1 2 1 # Bowel Movements 0 - Constitutional General appearance: Present: cooperative, no acute distress - EENT Eyes: Present: EOMI, PERRLA. Absent: abnormal pupil, ptosis ENT: Present: hearing grossly normal - Neck Neck: Present: normal ROM. Absent: rigidity - Respiratory Respiratory: negative: prolonged expiration, prolonged inspiration - Cardiovascular Rhythm: regular - Gastrointestinal General gastrointestinal: Absent: distended, tenderness - Neurologic Neurologic Comment(s): She is alert awake and oriented 3. Speech and language are normal. There is no facial asymmetry. She has normal sensory exam. No seizure-like activities are seen, but she does have some intention tremor of the right upper extremity with mild dysmetria. Although she says she feels weakness, strength testing shows full strength by comparison bilateral lower extremities. She does have a mildly weakened bending frame operator by comparison on the right hand side. - Labs CBC & Chem 7: 05/08/17 05:58 05/08/17 05:58 Labs: Abnormal Lab Results - Last 24 Hours (Table) 05/06/17 05/08/17 05/08/17 Range/Units 16:43 05:58 05:58 Plt Count 118 L (150-450) k/uL Carbon Dioxide 32 H (22-30) mmol/L Glucose 110 H (74-99) mg/dL Hemoglobin A1c 7.7 H (4.0-6.0) % Assessment and Plan (1) CVA (cerebral vascular accident) Current Visit: Yes Status: Acute Code(s): I63.9 - CEREBRAL INFARCTION, UNSPECIFIED SNOMED Code(s): 336694937 (2) Right hemiparesis Current Visit: Yes Status: Acute Code(s): G81.91 - HEMIPLEGIA, UNSPECIFIED AFFECTING RIGHT DOMINANT SIDE SNOMED Code(s): 989786901 (3) Altered mental status Current Visit: Yes Status: Resolved Code(s): R41.82 - ALTERED MENTAL STATUS , UNSPECIFIED SNOMED Code(s): 765487922 (4) Pre-syncope Current Visit: Yes Status: Suspected Code(s): R55 - SYNCOPE AND COLLAPSE SNOMED Code(s): 933405752 (5) Chronic cholecystitis Current Visit: Yes Status: Chronic Code(s): K81.1 - CHRONIC CHOLECYSTITIS SNOMED Code(s): 03108383 (6) COPD (chronic obstructive pulmonary disease) Current Visit: No Status: Chronic Code(s): J44.9 - CHRONIC OBSTRUCTIVE PULMONARY DISEASE, UNSPECIFIED SNOMED Code(s): 07127683 (7) Diabetes Current Visit: No Status: Chronic Code(s): E11.9 - TYPE 2 DIABETES MELLITUS WITHOUT COMPLICATIONS SNOMED Code(s): 68100369 (8) Dyslipidemia Current Visit: No Status: Chronic Code(s): E78.5 - HYPERLIPIDEMIA, UNSPECIFIED SNOMED Code(s): 298177294 (9) Hypertension Current Visit: No Status: Chronic Code(s): I10 - ESSENTIAL (PRIMARY) HYPERTENSION SNOMED Code(s): 15955634 Plan: The patient's symptoms are indicative of an acute ischemic stroke in the left middle cerebral artery distribution. Continue Plavix, Lipitor. Continue ongoing treatment for her hyperlipidemia, hypertension, and abdominal pain from her chronic cholecystitis. Continue physical therapy. She is cleared from neurological standpoint to follow up in our office at her scheduled visit in a couple weeks. I have performed a history and physical on the above patient. I have reviewed the above note, and agree.
--- NOTE | 2017-05-08 16:54 | PN ---
PROGRESS NOTE DATE OF SERVICE: 05/08/2017. INTERVAL HISTORY: This 62-year-old woman is admitted with the change in mental status, fall and as well as the weakness is being evaluated for stroke, the patient possibly had a TIA. No chest pain. No abdominal. Ultrasound showed cholelithiasis and Dr. Jackson and neurology following the patient closely. No chest pain. No palpitations. No fever. EXAM: Alert and oriented times three. Pulse 83, blood pressure 120/61, respirations 16, temperature 97.8, pulse ox 97% on room air. HEENT: Conjunctivae normal. Neck: No jugular venous distention. Cardiovascular: S1, S2 muffled. Respirations: Breath sounds diminished in the bases. No rhonchi and no crackles. Abdomen is soft, nontender. No mass palpable. Legs: No edema. No swelling. Nervous system: No focal deficits. LABORATORY DATA: CBC within normal limits. Platelets 118. UA noted. ASSESSMENT: 1. Presyncope, possible acute transient ischemic attack involving the left middle cerebral artery territory causing right-sided weakness. 2. Chronic obstructive pulmonary disease. 3. Asthma. 4. Cholelithiasis. 5. Cerebrovascular accident, transient ischemic attack. 6. Diabetes type 2. 7. Hypertension. 8. Hyperlipidemia. 9. History of pneumonia. 10.History of irritable bowel syndrome. 11.History of narcolepsy and cataplexy. 12.History of anxiety and depression. 13.Possible urinary tract infection. 14.Hyperlipidemia. RECOMMENDATIONS AND DISCUSSION: Continue current medications, management and symptomatic treatment. Otherwise, at this time, we will monitor the patient closely. Increase ambulation. PT, OT evaluation. Guarded prognosis. Further recommendations to follow. MMODL / IJN: [id number] /
[2017-05-08] MEDS: CLOPIDOGREL 75 MG TAB PO SCH (17:11)
--- NOTE | 2017-05-08 19:47 | EEG ---
ELECTROENCEPHALOGRAM REPORT DATE OF SERVICE: 05/08/2017 REASON FOR TESTING: Stroke. DESCRIPTION OF THE PROCEDURE: This EEG was performed using a 21-channel digital electroencephalograph, following international 10-20 system. DESCRIPTION OF THE RECORDING: From the beginning of the tracing, and with the patient's eyes closed, the background rhythm was mostly consisting of 9 Hz alpha frequency in the posterior occipital leads. No obvious asymmetry is seen. Rare movement artifacts and occasional lead artifacts are seen. Photic stimulation was performed with a good driving response seen. No pathological waves were elicited. Hyperventilation was not performed. The patient remains awake throughout the tracing. No epileptiform discharges were seen. Her EKG lead showed a regular rate and rhythm. INTERPRETATION: This awake EEG can be considered within normal limits. There was no asymmetry seen. No epileptiform discharges were noticed. The absence of epileptiform discharges does not rule out the diagnosis of epilepsy; therefore clinical correlation is recommended. KELLY / QUENTIN: [id number] /
--- NOTE | 2017-05-08 20:13 | P.PN ---
Subjective Progress Note Date: 05/08/17 Principal diagnosis: Chronic cholecystitis Patient says she had 1 episode yesterday evening of pain in the right upper quadrant that lasted less than 2 minutes. Some nausea this morning. She feels well at present. No abdominal pain. Objective - Vital Signs Vital signs: Vital Signs Temp 97.3 F L 05/08/17 15:40 Pulse 93 05/08/17 15:40 Resp 18 05/08/17 15:40 BP 120/83 05/08/17 15:40 Pulse Ox 95 05/08/17 15:40 Intake & Output 05/08/17 05/08/17 05/09/17 06:59 18:59 06:59 Output Total 900 Balance -900 Weight 69.1 kg Output: Urine 900 Other: Voiding Method Toilet Toilet # Voids 2 1 # Bowel Movements 0 - Exam Abdomen: Soft, nondistended, nontender - Labs CBC & Chem 7: 05/08/17 05:58 05/08/17 05:58 Labs: Abnormal Lab Results - Last 24 Hours (Table) 05/06/17 05/08/17 05/08/17 Range/Units 16:43 05:58 05:58 Plt Count 118 L (150-450) k/uL Carbon Dioxide 32 H (22-30) mmol/L Glucose 110 H (74-99) mg/dL Hemoglobin A1c 7.7 H (4.0-6.0) % Assessment and Plan (1) Chronic cholecystitis Narrative/Plan: Continue workup for change in mental status. Recommend outpatient follow-up to discuss cholecystectomy. We'll sign off at this point. Please contact if needed. Current Visit: Yes Status: Chronic Code(s): K81.1 - CHRONIC CHOLECYSTITIS SNOMED Code(s): 27689289
[2017-05-08] MEDS: BACLOFEN 10 MG TAB PO SCH (20:57)
[2017-05-08] MEDS: ATORVASTATIN 80 MG TAB PO SCH (20:57)
[2017-05-08] MEDS: EZETIMIBE 10 MG TAB PO SCH (20:57)
[2017-05-08] MEDS: PRAMIPEXOLE 1 MG TAB PO SCH (20:58)
[2017-05-08] MEDS: MONTELUKAST 10 MG TAB PO SCH (20:58)
[2017-05-09] MEDS: PANTOPRAZOLE 40 MG TABLET PO SCH (06:13)
[2017-05-09] MEDS: INSULIN PUMP MEAL BOLUS 1 UNIT MISC MISCELLANE SCH ×2 (06:15→12:33)
--- NOTE | 2017-05-09 06:19 | P.CONS ---
History of Present Illness - Chief Complaint Gait disturbance, right hemiparesthesias - History of Present Illness I had the op to see patient for inpatient rehab consultation with regard to gait disturbance. She was admitted to [facility] May 06 with mental status change and right-sided weakness. Head CT and angina CT negative. Chest x-ray negative. Brain MRI demonstrated only age-related change. Abdominal ultrasound demonstrated cholelithiasis. Symmetric Dr. carrington who notes chronic cholecystitis only. Seen by Dr. Tray morel to for known neurology. Recommending therapy in his office. OT reports supervision for upper dressing and minimal assistance for lower dressing, bathing, toileting, functional mobility. Speech therapy assessed communication cognition and within functional limits. Previous functional history as elicited from patient: 71-year-old right-handed white female who is lives in one form with . Retired. They share the cooking and laundry does the driving. Patient independent with standing shower and gait with standard cane. Doesn't drive. Denies tobacco or alcohol history. PMD is Dr. Caicedo. Family history of mother with cardiac disease and hypertension. Review of Systems Review of systems: ENT: Denies sneezes or discharge. Eyes: Denies discharge or photophobia. Cardiac: Denies chest pain or palpitation. Pulmonary: Denies cough or shortness of breath. Breast: Denies discharge or lumps. Gastrointestinal: Denies nausea, emesis, constipation, diarrhea. Genitourinary: Denies discharge or frequency. Musculoskeletal: Denies muscle or bone aches. Neurologic: Reports mild weakness on right side. Endocrine: Denies shakes or sweats. Oncology: Denies cancers. Dermatologic: Denies rash, itching, pruritus. ALLERGY/immunology: Denies sneezes, rashes. Past Medical History Past Medical History: Asthma, Coronary Artery Disease (CAD), COPD, CVA/TIA, Diabetes Mellitus, Hyperlipidemia, Hypertension, Pneumonia Additional Past Medical History / Comment(s): IBS, narcolepsy with cataplexy History of Any Multi-Drug Resistant Organisms: None Reported Past Surgical History: Appendectomy, Breast Surgery, Heart Catheterization, Hernia Repair, Hysterectomy Additional Past Surgical History / Comment(s): BILATERAL CATARACTS. Rt lumpectomy - neg, D&C. Past Anesthesia/Blood Transfusion Reactions: No Reported Reaction Past Psychological History: Anxiety, Depression Smoking Status: Never smoker Past Alcohol Use History: None Reported Past Drug Use History: None Reported - Past Family History Mother Family Medical History: Hyperlipidemia, Hypertension Additional Family Medical History / Comment(s): ANEMIA Father Family Medical History: Cancer, Diabetes Mellitus Additional Family Medical History / Comment(s): Stroke Medications and Allergies Home Medications Medication Instructions Recorded Confirmed Type Atorvastatin [Lipitor] 80 mg PO HS 03/21/14 05/06/17 History Baclofen 10 - 20 mg PO HS 03/21/14 05/06/17 History Dicyclomine [Bentyl] 10 mg PO QID PRN 03/21/14 05/06/17 History Hydrocodone/Acetaminophen [[place] 1 tab PO Q6HR PRN 03/21/14 05/06/17 History 7.5-325] Modafinil [Provigil] 100 mg PO DAILY 03/21/14 05/06/17 History Pantoprazole Sodium [Protonix] 40 mg PO QAM 03/21/14 05/06/17 History Pramipexole Di-HCl [Mirapex] 1 mg PO HS 03/21/14 05/06/17 History Pregabalin [Lyrica] 200 mg PO TID 03/21/14 05/06/17 History sitaGLIPtin PHOSPHATE [Januvia] 100 mg PO QAM 03/21/14 05/06/17 History traMADol HCl [Ultram] 50 - 100 mg PO TID 05/22/14 05/06/17 History Lidocaine 5% Patch [Lidoderm 5% 1 patch TOPICAL DAILY PRN 03/09/15 05/06/17 History Patch] Montelukast [Singulair] 10 mg PO HS 04/11/15 05/06/17 History Cholecalciferol [Vitamin D3] 1,000 unit PO DAILY 03/12/16 05/06/17 History Ezetimibe [Zetia] 10 mg PO HS 03/12/16 05/06/17 History INSULIN LISPRO (For Pump) [humaLOG See Protocol SQ-PUMP CONTINUOUS 04/18/17 History (For Pump)] clonazePAM [KlonoPIN] 0.5 mg PO HS PRN tab 04/23/17 05/06/17 Rx Clopidogrel Bisulfate [Plavix] 75 mg PO HS 05/06/17 05/06/17 History DULoxetine HCL [Cymbalta] 30 mg PO BID 05/06/17 05/06/17 History Escitalopram [Lexapro] 5 mg PO DAILY 05/06/17 05/06/17 History Fluticasone/Salmeterol [Advair 1 puff INHALATION RT-BID 05/06/17 05/06/17 History 500-50 Diskus] Hydrochlorothiazide 12.5 mg PO DAILY 05/06/17 05/06/17 History Allergies Allergy/AdvReac Type Severity Reaction Status Date / Time aspirin Allergy Swelling Verified 05/06/17 16:56 ibuprofen Allergy Swelling Verified 05/06/17 16:56 ipratropium bromide Allergy Swelling Verified 05/06/17 16:56 [From Atrovent] meperidine HCl [From Demerol] Allergy Rash/Hives Verified 05/06/17 16:56 hydromorphone HCl AdvReac Nausea & Verified 05/06/17 16:56 [From Dilaudid] Vomiting metformin AdvReac Unknown Verified 05/06/17 15:53 morphine AdvReac Vomiting Verified 05/06/17 16:56 trazodone AdvReac Weakness Verified 05/06/17 16:56 zolpidem tartrate AdvReac Hallucinati Verified 05/06/17 16:56 [From Ambien] ons MSG Allergy Rash/Hives Uncoded 05/06/17 15:53 Physical Exam Vitals: Vital Signs Temp Pulse Resp BP BP BP Pulse Ox 05/09/17 03:42 96.5 F L 71 16 91/54 94 L 05/08/17 23:46 96.9 F L 96 16 110/64 96 05/08/17 20:00 96.9 F L 89 16 125/61 98 05/08/17 15:40 97.3 F L 93 16 120/83 95 05/08/17 15:27 95 05/08/17 12:00 97.8 F 83 16 127/61 97 05/08/17 08:00 97 F L 84 18 105/58 96 Intake and Output 05/08/17 05/08/17 05/09/17 14:59 22:59 06:59 Intake Total 10 10 Output Total 600 550 500 Balance -600 -540 -490 Intake: IV 10 10 0.9 10 10 Output: Urine 600 550 500 Other: Voiding Method Toilet Toilet Toilet # Voids 1 1 1 # Bowel Movements 0 Weight 69.4 kg Skin: Good color, texture, turgor. General: Medium build and comfortable appearance. Head: Normocephalic, atraumatic. Eyes: Symmetric. Pupils equal round. Ears: Symmetric. Hearing within normal limits. Mouth: Clear. Neck: Supple. Carotid without bruit. Cardiac: Regular rate and rhythm. Lungs: Clear anteriorly and posteriorly. Abdomen: Soft active nontender. Extremities: Normal tone. Neurological: Mental status: Alert, cooperative, pleasant. Cranial nerves: Symmetric facial tone and trapezius. Motor: Normal strength and isolation left side. Right arm and leg mildly weak, hand 4 or 5 in ankle 3 minus over 5. Sensation: Intact throughout. DTRs: Symmetric and equal throughout. Mobility: Sits with minimal assistance. Results CBC & Chem 7: 05/08/17 05:58 05/08/17 05:58 Labs: Abnormal Lab Results - Last 24 Hours (Table) 05/08/17 05/08/17 Range/Units 05:58 05:58 Plt Count 118 L (150-450) k/uL Carbon Dioxide 32 H (22-30) mmol/L Glucose 110 H (74-99) mg/dL Microbiology - Last 24 Hours (Table) 05/08/17 17:20 Urine Culture - Preliminary Urine,Voided Chest x-ray: report reviewed (Negative.) CT Scan - head: report reviewed (Head CT negative. Angio CT negative.) US - abdomen: report reviewed (Cholelithiasis without cholecystitis.) MRI - head: report reviewed (Age-related change.) Assessment and Plan (1) Right hemiparesis Current Visit: Yes Status: Acute Code(s): G81.91 - HEMIPLEGIA, UNSPECIFIED AFFECTING RIGHT DOMINANT SIDE SNOMED Code(s): 418219289 Plan: Impression: 1. Gait disturbance. 2. Left-sided stroke with result in right hemiparesthesias. 3. Hypertension. 4. Dyslipidemia. 5. Cardiac disease. 6. History of stroke. 7. Diabetes. 8. COPD. Comments and plan: At this time OT and speech ongoing. OT notes safety concerns. PT prescribed. Follow PT notes. At this time, would anticipate and need and benefit short-term inpatient rehab. Patient has discussed possible outpatient therapies are Dr. Feliz's office which I have discussed can be done after discharge from rehab unit.
[2017-05-09 06:31] LABS: Basophils # (A) 0.1 k/uL (0-0.2); Basophils % (A) 1 %; Eosinophils # (A) 0.2 k/uL (0-0.7); Eosinophils % (A) 3 %; HCT 34.9 % (34.0-46.0); HGB 11.9 gm/dL (11.4-16.0); Lymphocytes # (A) 0.9 k/uL (1.0-4.8); Lymphocytes % (A) 14 %; MCV 85.1 fL (80.0-100.0); Mean Platelet Volume 7.8; Monocytes # (A) 0.3 k/uL (0-1.0); Monocytes % (A) 4 %; Neutrophils # (A) 4.8 k/uL (1.3-7.7); Neutrophils % (A) 76 %; Platelet Count 130 k/uL (150-450); RBC 4.11 m/uL (3.80-5.40); RDW 14.4 % (11.5-15.5); WBC 6.3 k/uL (3.8-10.6)
[2017-05-09 06:44] LABS: Anion Gap 9 mmol/L; Blood Urea Nitrogen 16 mg/dL (7-17); Calcium 9.5 mg/dL (8.4-10.2); Carbon Dioxide 32 mmol/L (22-30); Chloride 98 mmol/L (98-107); Glucose 151 mg/dL (74-99); Potassium 3.7 mmol/L (3.5-5.1); Sodium 139 mmol/L (137-145)
[2017-05-09] MEDS: SYMBICORT 160-4.5 MCG INHALER INHALATION SCH (08:17)
[2017-05-09 08:23] VITALS: PULSE 82; RESP 17
[2017-05-09] MEDS: CHOLECALCIFEROL 1,000 UNIT TAB PO SCH (09:53)
[2017-05-09] MEDS: cefTRIAXone IN SWFI 1,000 MG/10 ML SYRINGE IVP SCH (09:53)
[2017-05-09] MEDS: DULoxetine HCL 30 MG CAPSULE.DR PO SCH (09:53)
[2017-05-09] MEDS: HEPARIN SODIUM,PORCINE 5,000 UNIT/ML 1 ML VIAL SQ SCH (09:54)
[2017-05-09] MEDS: LINAGLIPTIN 5 MG TABLET PO SCH (09:54)
[2017-05-09] MEDS: MODAFINIL 100 MG TAB PO SCH (09:54)
[2017-05-09] MEDS: HYDROCHLOROTHIAZIDE 12.5 MG CAP PO SCH (09:54)
[2017-05-09] MEDS: ESCITALOPRAM 5 MG TAB PO SCH (09:54)
[2017-05-09] MEDS: traMADol 50 MG TAB PO SCH (09:55)
[2017-05-09] MEDS: PREGABALIN 100 MG CAP PO SCH (09:55)
[2017-05-09 11:41] VITALS: BP 111/63; TEMP 98.3
[2017-05-09] MEDS ORDERED: MODAFINIL 100 MG TAB PO SCH (12:00)
--- NOTE | 2017-05-09 14:05 | P.DS ---
Providers Date of admission: 05/07/17 15:35 Expected date of discharge: 05/09/17 Attending physician: Chu Brice Consults: 05/06/17 18:31 Consult Physician Urgent Consulting Provider: Deborah Feliz Consult Reason/Comments: tia Do you want consulting provider notified?: Yes 05/07/17 12:55 Consult Physician Urgent Consulting Provider: Pk Jackson Consult Reason/Comments: gallstones Do you want consulting provider notified?: Already Contacted 05/08/17 15:15 Consult Physician Routine Consulting Provider: Jovan Lamar Consult Reason/Comments: Inpatient rehab Do you want consulting provider notified?: Yes Primary care physician: [facility] Course: Final Diagnoses: 1. Presyncope, acute CVA with right hemiplegia 2. COPD 3. Possible acute UTI, cultures pending 4. Cholelithiasis 5. History of CVA, TIA 6. Diabetes mellitus type 2 7. Hypertension 8. Narcolepsy 9. Hyperlipidemia Hospital course: This is a 62-year-old female admitted with change in mental status, fall, acute CVA with right-sided with left-sided hemiplegia. Initial brain CT reported no acute intracranial abnormalities. Normal echo cardiogram. CTA of head and neck and MRI did not report acute ischemia. Evaluated by Dr. Feliz with neurology workup completed. Maintained on statin and Plavix. Evaluated by a Gen Vijaya. surgery for cholelithiasis with outpatient follow -up recommended. Evaluated by PT/OT and Dr. Lamar. Significant clinical improvement. Patient has been cleared by all consults. Patient is being discharged to [facility] inpatient rehab in a stable condition with guarded prognosis. Physical Exam:VSS, no acute distress, alert and oriented 3,CV: Regular S1 and S2.LUNGS: Bilateral bases diminished.NEURO: right-sided hemiplegia, left side with normal strength. The impression and plan of care has been dictated as directed. : I performed a history and examination of this patient, discussed the same with the dictator. I agree with the dictator's note ,documented as a scribe. Any additional findings or plans will be noted. Time taken: 35 minutes Patient Condition at Discharge: Stable Plan - Discharge Summary Discharge Rx Participant: No New Discharge Prescriptions: New Modafinil [Provigil] 200 mg PO DAILY tab traMADol HCl [Ultram] 50 mg PO TID #15 tab Cefuroxime Axetil [Ceftin] 500 mg PO BID #10 tab Continue sitaGLIPtin PHOSPHATE [Januvia] 100 mg PO QAM Pregabalin [Lyrica] 200 mg PO TID Dicyclomine [Bentyl] 10 mg PO QID PRN PRN Reason: Diarrhea Pramipexole Di-HCl [Mirapex] 1 mg PO HS Pantoprazole Sodium [Protonix] 40 mg PO QAM Atorvastatin [Lipitor] 80 mg PO HS Baclofen 10 - 20 mg PO HS Lidocaine 5% Patch [Lidoderm 5% Patch] 1 patch TOPICAL DAILY PRN PRN Reason: Pain Montelukast [Singulair] 10 mg PO HS Ezetimibe [Zetia] 10 mg PO HS Cholecalciferol [Vitamin D3] 1,000 unit PO DAILY INSULIN LISPRO (For Pump) [humaLOG (For Pump)] See Protocol SQ-PUMP CONTINUOUS clonazePAM [KlonoPIN] 0.5 mg PO HS PRN tab PRN Reason: Insomnia Escitalopram [Lexapro] 5 mg PO DAILY DULoxetine HCL [Cymbalta] 30 mg PO BID Clopidogrel Bisulfate [Plavix] 75 mg PO HS Fluticasone/Salmeterol [Advair 500-50 Diskus] 1 puff INHALATION RT-BID Hydrochlorothiazide 12.5 mg PO DAILY Hydrocodone/Acetaminophen [[place] 7.5-325] 1 tab PO Q6HR PRN #15 tablet PRN Reason: Pain Discontinued Modafinil [Provigil] 100 mg PO DAILY traMADol HCl [Ultram] 50 - 100 mg PO TID Discharge Medication List Atorvastatin [Lipitor] 80 mg PO HS 03/21/14 [History] Baclofen 10 - 20 mg PO HS 03/21/14 [History] Dicyclomine [Bentyl] 10 mg PO QID PRN 03/21/14 [History] Pantoprazole Sodium [Protonix] 40 mg PO QAM 03/21/14 [History] Pramipexole Di-HCl [Mirapex] 1 mg PO HS 03/21/14 [History] Pregabalin [Lyrica] 200 mg PO TID 03/21/14 [History] sitaGLIPtin PHOSPHATE [Januvia] 100 mg PO QAM 03/21/14 [History] Lidocaine 5% Patch [Lidoderm 5% Patch] 1 patch TOPICAL DAILY PRN 03/09/15 [ History] Montelukast [Singulair] 10 mg PO HS 04/11/15 [History] Cholecalciferol [Vitamin D3] 1,000 unit PO DAILY 03/12/16 [History] Ezetimibe [Zetia] 10 mg PO HS 03/12/16 [History] INSULIN LISPRO (For Pump) [humaLOG (For Pump)] See Protocol SQ-PUMP CONTINUOUS 04/18/17 [History] clonazePAM [KlonoPIN] 0.5 mg PO HS PRN tab 04/23/17 [Rx] Clopidogrel Bisulfate [Plavix] 75 mg PO HS 05/06/17 [History] DULoxetine HCL [Cymbalta] 30 mg PO BID 05/06/17 [History] Escitalopram [Lexapro] 5 mg PO DAILY 05/06/17 [History] Fluticasone/Salmeterol [Advair 500-50 Diskus] 1 puff INHALATION RT-BID 05/06/17 [History] Hydrochlorothiazide 12.5 mg PO DAILY 05/06/17 [History] Cefuroxime Axetil [Ceftin] 500 mg PO BID #10 tab 05/09/17 [Rx] Hydrocodone/Acetaminophen [[place] 7.5-325] 1 tab PO Q6HR PRN #15 tablet 05/09/17 [Rx] Modafinil [Provigil] 200 mg PO DAILY tab 05/09/17 [Rx] traMADol HCl [Ultram] 50 mg PO TID #15 tab 05/09/17 [Rx] Follow up Appointment(s)/Referral(s): Deborah Feliz MD [STAFF PHYSICIAN] - 2 Weeks Chris Caicedo DO [Primary Care Provider] - 1 Week (after dc from IP Rehab) Pk Jackson MD [Medical Doctor] - 2 Weeks Activity/Diet/Wound Care/Special Instructions: [facility] inpatient rehab Diet: Cardiac Activity: tolerated CBC, CMP in 3 days
[2017-05-10] MEDS ORDERED: MODAFINIL 100 MG TAB PO SCH (09:00)
--- NOTE | 2017-05-13 11:13 | CDI ---
Last Revision, January 2017 Documentation Clarification Form Date: 05/13/17 From: Kari Erick Karla Tapia, Senior [employer] Developer between 8:30 am & 5 pm Reynaldo Admit Date: 05/07/2017 3:35:00 PM Patient Name: Saira Juarez I Visit Number: [id number] Discharge Date: 05/09/17 ATTENTION: The Clinical Documentation Specialists (CDI) and [facility] Coding Staff appreciate your assistance in clarifying documentation. Please respond to the clarification below the line at the bottom and electronically sign. The CDI & [facility] Coding staff will review the response and follow-up if needed. Please note: Queries are made part of the Legal Health Record. If you have any questions, please contact the author of this message via ITS. Dr. Chu Brice Possible acute UTI, cultures pending in the discharge summary. She was treated with IV Rocephin. UA: Ur leukocyte esterase - moderate; WBC-11; WBC: 9.8 Urine culture: no growth Please document the condition that these clinical indicators signify: UTI ruled in UTI ruled out Contaminated specimen Other, please specify Unable to determine Please continue to document in your progress notes and discharge summary in order to capture severity of illness and risk of mortality. Include clinical findings that support your diagnosis. Possible uti MTDD
== END 2017-05-09 15:45 | DRG 65 ==
LOC: EC 15:46 → 6SEL 18:30 → OBSVTOIN 05-07 15:35
PROVIDERS: ADMIT Hospitalist; ATTEND Hospitalist
DX: I63.512 Cerebral infarction due to unspecified occlusion or stenosis of left middle cerebral artery (principal); G81.91 Hemiplegia, unspecified affecting right dominant side; D69.6 Thrombocytopenia, unspecified; J44.9 Chronic obstructive pulmonary disease, unspecified; K80.10 Calculus of gallbladder with chronic cholecystitis without obstruction; N39.0 Urinary tract infection, site not specified; R40.2362 Coma scale, best motor response, obeys commands, at arrival to emergency department; R40.2142 Coma scale, eyes open, spontaneous, at arrival to emergency department; R29.700 NIHSS score 0; R40.2252 Coma scale, best verbal response, oriented, at arrival to emergency department; I25.10 Atherosclerotic heart disease of native coronary artery without angina pectoris; I10 Essential (primary) hypertension; G47.411 Narcolepsy with cataplexy; E78.5 Hyperlipidemia, unspecified; K58.9 Irritable bowel syndrome, unspecified; F32.9 Major depressive disorder, single episode, unspecified; F41.9 Anxiety disorder, unspecified; E11.9 Type 2 diabetes mellitus without complications; K21.9 Gastro-esophageal reflux disease without esophagitis; G89.29 Other chronic pain; M54.5 Low back pain; G25.81 Restless legs syndrome; Z79.02 Long term (current) use of antithrombotics/antiplatelets; Z79.4 Long term (current) use of insulin; Z79.891 Long term (current) use of opiate analgesic; Z79.51 Long term (current) use of inhaled steroids; Z79.899 Other long term (current) drug therapy; Z96.41 Presence of insulin pump (external) (internal); Z87.01 Personal history of pneumonia (recurrent); Z90.710 Acquired absence of both cervix and uterus; Z88.5 Allergy status to narcotic agent; Z88.8 Allergy status to other drugs, medicaments and biological substances; Z88.6 Allergy status to analgesic agent; Z91.02 Food additives allergy status; Z98.42 Cataract extraction status, left eye; Z98.41 Cataract extraction status, right eye; Z82.3 Family history of stroke
CPT/HCPCS: 36415; 70450; 70496; 70498; 70553; 71046; 76705; 80048; 80053; 80061; 81001; 82550; 82553; 83036; 83090; 84484; 85025; 85610; 85730; 87086; 93005; 93306; 94640; 94760; 95819; 96360; 96361; 99214; 99285

== ENCOUNTER 2017-06-05 14:49 | Observation (INO) | payer MEDICARE, OTHER ==
--- NOTE | 2017-06-05 16:23 | ED ---
Chest Pain HPI - General Chief Complaint: Chest Pain Stated Complaint: Chest Pain, had mini stroke month ago Time Seen by Provider: 06/05/17 15:34 Source: patient Mode of arrival: wheelchair Limitations: no limitations - History of Present Illness Initial Comments: Patient complains of chest pressure. Symptoms began today. Nothing makes them better or worse. The pressure is in the middle of the chest. It does not radiate anywhere. There are no exacerbating or relieving factors. She took no medication for this. She has no nausea or vomiting or diaphoresis. She has no pain or swelling the legs. She denies palpitations. She denies sick contacts. She denies recent travel. She has no neck pain or back pain or belly pain. - Related Data Home Medications Medication Instructions Recorded Confirmed Atorvastatin [Lipitor] 80 mg PO HS 03/21/14 06/05/17 Baclofen 10 mg PO BID 03/21/14 06/05/17 Dicyclomine [Bentyl] 10 mg PO QID PRN 03/21/14 06/05/17 Pantoprazole Sodium [Protonix] 40 mg PO QAM 03/21/14 06/05/17 Pramipexole Di-HCl [Mirapex] 1.5 mg PO HS 03/21/14 06/05/17 Pregabalin [Lyrica] 200 mg PO TID 03/21/14 06/05/17 sitaGLIPtin PHOSPHATE [Januvia] 100 mg PO QAM 03/21/14 06/05/17 Lidocaine 5% Patch [Lidoderm 5% 1 patch TOPICAL DAILY PRN 03/09/15 06/05/17 Patch] Montelukast [Singulair] 10 mg PO HS 04/11/15 06/05/17 Cholecalciferol [Vitamin D3] 1,000 unit PO DAILY 03/12/16 06/05/17 Ezetimibe [Zetia] 10 mg PO HS 03/12/16 06/05/17 INSULIN LISPRO (For Pump) [humaLOG See Protocol SQ-PUMP CONTINUOUS 04/18/17 (For Pump)] Clopidogrel Bisulfate [Plavix] 75 mg PO QAM 05/06/17 06/05/17 DULoxetine HCL [Cymbalta] 30 mg PO QAM 05/06/17 06/05/17 Escitalopram [Lexapro] 5 mg PO HS 05/06/17 06/05/17 Albuterol Nebulized [Ventolin 2.5 mg INHALATION RT-QID 06/05/17 06/05/17 Nebulized] Fluticasone/Salmeterol [Advair 1 puff INHALATION RT-BID 06/05/17 06/05/17 250-50 Diskus] Lisinopril [Zestril] 5 mg PO QAM 06/05/17 06/05/17 Modafinil [Provigil] 200 mg PO QAM 06/05/17 06/05/17 Previous Rx's Medication Instructions Recorded clonazePAM [KlonoPIN] 0.5 mg PO HS PRN tab 04/23/17 Hydrocodone/Acetaminophen [[place] 1 tab PO Q6HR PRN #15 tablet 05/09/17 7.5-325] traMADol HCl [Ultram] 50 mg PO TID #15 tab 05/09/17 Allergies Allergy/AdvReac Type Severity Reaction Status Date / Time aspirin Allergy Swelling Verified 06/05/17 15:59 ibuprofen Allergy Swelling Verified 06/05/17 15:59 ipratropium bromide Allergy Swelling Verified 06/05/17 15:59 [From Atrovent] meperidine HCl [From Demerol] Allergy Rash/Hives Verified 06/05/17 15:59 hydromorphone HCl AdvReac Nausea & Verified 06/05/17 15:59 [From Dilaudid] Vomiting metformin AdvReac Unknown Verified 06/05/17 15:59 morphine AdvReac Vomiting Verified 06/05/17 15:59 trazodone AdvReac Weakness Verified 06/05/17 15:59 zolpidem tartrate AdvReac Hallucinati Verified 06/05/17 15:59 [From Ambien] ons MSG Allergy Rash/Hives Uncoded 05/06/17 15:53 Review of Systems ROS Statement: Those systems with pertinent positive or pertinent negative responses have been documented in the HPI. ROS Other: All systems not noted in ROS Statement are negative. EKG Findings - EKG Comments: EKG Findings:: Twelve-lead EKG shows ventricular rate 95 bpm, normal MN interval and QRS, looks, no ST elevation or depression, interpreted by me as normal sinus rhythm. Past Medical History Past Medical History: Asthma, Coronary Artery Disease (CAD), COPD, CVA/TIA, Diabetes Mellitus, Hyperlipidemia, Hypertension, Pneumonia Additional Past Medical History / Comment(s): IBS, narcolepsy with cataplexy History of Any Multi-Drug Resistant Organisms: None Reported Past Surgical History: Appendectomy, Breast Surgery, Heart Catheterization, Hernia Repair, Hysterectomy Additional Past Surgical History / Comment(s): BILATERAL CATARACTS. Rt lumpectomy - neg, D&C. Past Anesthesia/Blood Transfusion Reactions: No Reported Reaction Past Psychological History: Anxiety, Depression Smoking Status: Never smoker Past Alcohol Use History: None Reported Past Drug Use History: None Reported - Past Family History Mother Family Medical History: Hyperlipidemia, Hypertension Additional Family Medical History / Comment(s): ANEMIA Father Family Medical History: Cancer, Diabetes Mellitus Additional Family Medical History / Comment(s): Stroke General Exam Limitations: no limitations General appearance: alert, in no apparent distress Head exam: Present: atraumatic, normocephalic, normal inspection Eye exam: Present: normal appearance, PERRL, EOMI. Absent: scleral icterus, conjunctival injection, periorbital swelling ENT exam: Present: normal exam, mucous membranes moist Neck exam: Present: normal inspection. Absent: tenderness, meningismus, lymphadenopathy Respiratory exam: Present: normal lung sounds bilaterally. Absent: respiratory distress, wheezes, rales, rhonchi, stridor Cardiovascular Exam: Present: regular rate, normal rhythm, normal heart sounds. Absent: systolic murmur, diastolic murmur, rubs, gallop, clicks GI/Abdominal exam: Present: soft, normal bowel sounds. Absent: distended, tenderness, guarding, rebound, rigid Extremities exam: Present: normal inspection, full ROM, normal capillary refill. Absent: tenderness, pedal edema, joint swelling, calf tenderness Back exam: Present: normal inspection Neurological exam: Present: alert, oriented X3, CN II-XII intact Psychiatric exam: Present: normal affect, normal mood Skin exam: Present: warm, dry, intact, normal color. Absent: rash Course Vital Signs 06/05/17 15:03 Temperature 98.6 F Pulse Rate 104 H Respiratory 20 Rate Blood Pressure 131/69 O2 Sat by Pulse 96 Oximetry Chest Pain MDM - [facility] Patient complains of chest pressure. She has a very significant family history for cardiac disease. She will be admitted to the hospital. Disposition Clinical Impression: Chest pain Disposition: ADMITTED IP TO THIS HOSP Condition: Fair Is patient prescribed a controlled substance at discharge?: No Referrals: Chris Caicedo DO [Primary Care Provider] - 1-2 days
[2017-06-05 16:35] LABS: Basophils # (A) 0.1 k/uL (0-0.2); Basophils % (A) 1 %; Eosinophils # (A) 0.2 k/uL (0-0.7); Eosinophils % (A) 2 %; HCT 38.1 % (34.0-46.0); HGB 13.1 gm/dL (11.4-16.0); Lymphocytes % (A) 13 %; MCH 29.4 pg (25.0-35.0); MCHC 34.3 g/dL (31.0-37.0); MCV 85.6 fL (80.0-100.0); Mean Platelet Volume 8.3; Monocytes # (A) 0.5 k/uL (0-1.0); Monocytes % (A) 7 %; Neutrophils # (A) 5.7 k/uL (1.3-7.7); Neutrophils % (A) 76 %; Platelet Count 185 k/uL (150-450); RBC 4.45 m/uL (3.80-5.40); RDW 14.5 % (11.5-15.5); WBC 7.6 k/uL (3.8-10.6)
[2017-06-05] MEDS ORDERED: ONDANSETRON 4 MG/2 ML VIAL IVP PRN (16:44)
[2017-06-05] MEDS ORDERED: traMADol 50 MG TAB PO PRN (16:44)
[2017-06-05] MEDS ORDERED: NALOXONE 0.4 MG/ML 1 ML VIAL IV PRN (16:44)
[2017-06-05 16:45] LABS: Albumin 3.9 g/dL (3.5-5.0); Anion Gap 13 mmol/L; Calcium 9.6 mg/dL (8.4-10.2); Carbon Dioxide 26 mmol/L (22-30); Chloride 103 mmol/L (98-107); Glucose 154 mg/dL (74-99); Lipase 173 U/L (23-300); Sodium 142 mmol/L (137-145); Total Bilirubin 0.8 mg/dL (0.2-1.3); Total Protein 6.4 g/dL (6.3-8.2)
[2017-06-05 16:47] LABS: ALT 30 U/L (9-52); AST 23 U/L (14-36); Alkaline Phosphatase 79 U/L (38-126); Blood Urea Nitrogen 16 mg/dL (7-17); Magnesium 1.7 mg/dL (1.6-2.3)
--- NOTE | 2017-06-05 16:57 | XR ---
EXAMINATION TYPE: XR chest 2V DATE OF EXAM: 06/05/2017 COMPARISON: 05/06/2017 HISTORY: 71-year-old female with chest pain TECHNIQUE: PA and lateral views FINDINGS: Heart normal size. Aorta and pulmonary vasculature within normal limits. Mild diffuse interstitial pr ominence is unchanged. Some strandy right basilar atelectasis. No consolidation or pleural effusion. IMPRESSION: Chronic changes without acute cardiopulmonary process.
[2017-06-05 18:01] LABS: Partial Thromboplastin Time 22.6 sec (22.0-30.0); Prothrombin Time 9.6 sec (9.0-12.0)
[2017-06-05] MEDS ORDERED: INSULIN PUMP BASAL RATES 1 EACH MISC MISCELLANE PRN (18:45)
[2017-06-05] MEDS ORDERED: INSPUCOR MISCELLANE PRN (18:45)
[2017-06-05] MEDS ORDERED: INSULIN ASPART 100 UNIT/ML 1 ML 10 ML VIAL SQ PRN (18:45)
[2017-06-05] MEDS: SYMBICORT 80-4.5 MCG INHALER INHALATION SCH (19:30)
[2017-06-05] MEDS: ALBUTEROL NEBULIZED 2.5 MG/3 ML INHALATION SCH (19:30)
[2017-06-05] MEDS ORDERED: NON-FORMULARY DRUG (Fluticasone/Salmeterol [Advair 250-50 Diskus] 1 PUFF) INHALATION SCH (20:00)
[2017-06-05] MEDS ORDERED: clonazePAM 0.5 MG TAB PO PRN (20:34)
[2017-06-05] MEDS ORDERED: LIDOCAINE 5% PATCH TOPICAL PRN (20:34)
[2017-06-05] MEDS ORDERED: PRAMIPEXOLE 1 MG TAB PO SCH (21:00)
[2017-06-05] MEDS ORDERED: FAMOTIDINE 20 MG TAB PO SCH (21:00)
[2017-06-05] MEDS ORDERED: ESCITALOPRAM 5 MG TAB PO SCH (21:00)
[2017-06-05] MEDS ORDERED: ATORVASTATIN 80 MG TAB PO SCH (21:00)
[2017-06-05] MEDS: EZETIMIBE 10 MG TAB PO SCH (21:22)
[2017-06-05] MEDS: MONTELUKAST 10 MG TAB PO SCH (21:22)
[2017-06-05] MEDS: BACLOFEN 10 MG TAB PO SCH (21:22)
[2017-06-05] MEDS: FAMOTIDINE 20 MG TAB PO SCH (21:23)
[2017-06-05] MEDS: ATORVASTATIN 80 MG TAB PO SCH (21:45)
[2017-06-05] MEDS: PREGABALIN 100 MG CAP PO SCH (21:45)
[2017-06-05] MEDS: traMADol 50 MG TAB PO SCH (21:45)
[2017-06-05] MEDS: PRAMIPEXOLE 0.5 MG TAB PO SCH (21:45)
[2017-06-05] MEDS: INSULIN PUMP MEAL BOLUS 1 UNIT MISC MISCELLANE SCH (22:11)
[2017-06-05] MEDS: ESCITALOPRAM 5 MG TAB PO SCH (22:11)
--- NOTE | 2017-06-05 22:20 | HP ---
HISTORY AND PHYSICAL CHIEF COMPLAINT: Chest pain. HISTORY OF PRESENT ILLNESS: This 71-year-old woman with past medical history of asthma, CAD, COPD, CVA, TIA, diabetes, hypertension, hyperlipidemia, was recently admitted with stroke to [facility] with right hemiplegia. Patient improved significantly. Patient went to [facility] rehab. The patient improved significantly. The patient also had cholelithiasis seen by Dr. Jacskon. Recommend outpatient followup. Currently the patient is complaining of lower chest and upper epigastric pain which is radiating across the which is pressure type of pain. The patient also had subsequently right-sided sharp pains just below the axillary area. The patient admitted for further evaluation and treatment. Of note, the troponins are negative at this time. There is no history of fever, rigors or chills. No history of headache, loss of consciousness, seizures. PAST MEDICAL HISTORY: History of recent stroke, history of asthma, CAD, COPD, CVA, TIA, diabetes, hypertension, hyperlipidemia, history of pneumonia, history of appendectomy, breast surgery, history cardiac catheterization, anxiety, depression. MEDICATIONS: Prior to admission include home medications are: 1. Zestril 5 mg p.o. q.a.m. 2. Advair 250/50 one puff b.i.d. 3. Albuterol 2.5 q.i.d. 4. Vitamin D3 1000 daily. 5. Baclofen 10 mg p.o. b.i.d. 6. Lipitor 80 mg q.h.s. 7. Zetia 10 mg p.o. q.h.s. 8. Lexapro 5 mg p.o. q.h.s. 9. Bentyl 10 mg p.o. q.i.d. p.r.n. 10.Cymbalta 30 mg q.a.m. 11.Klonopin 0.5 mg q.h.s. p.r.n. 12.Humalog scale. 13.Malibu 7.5 q.6h p.r.n. 14.Singular 10 mg q.h.s. 15. 200 mg q.a.m. 16.Lidoderm patch 5% daily p.r.n. 17.Lyrica 200 mg p.o. t.i.d. 18.Mirapex 1.5 mg p.o. q.h.s. 19.Protonix 40 mg q.a.m. 20.Ultram 50 mg p.o. t.i.d. 21.Januvia 100 mg p.o. q.h.s. 22.Plavix 75 mg q.a.m. ALLERGIES: ASPIRIN, IBUPROFEN, ATROVENT, DEMEROL, DILAUDID, METFORMIN, MORPHINE, TRAZODONE , AMBIEN AND MSG. FAMILY HISTORY: History hypertension, hyperlipidemia, history or anemia. SOCIAL HISTORY: No history of smoking. No history of alcohol intake. REVIEW OF SYSTEMS: ENT: No diminished hearing or vision. CARDIOVASCULAR: As mentioned earlier. Respiratory: As mentioned earlier. GI as mentioned earlier. : No dysuria or hematuria. Nervous System as mentioned earlier. Allergy/Immunology: No asthma or hayfever. Musculoskeletal as mentioned earlier. HEMATOLOGY/ONCOLOGY: No history of anemia. Endocrine no history of diabetes, hypothyroidism. Constitutional: As mentioned earlier. Dermatology: Negative. Rheumatology: Negative. Psychiatric: As mentioned earlier. PHYSICAL EXAMINATION: Alert and oriented times three. Pulse 93, blood pressure 122/77, respiration 18 , temperature 97.9, pulse ox 99% on 2 L. HEENT is conjunctivae normal. Oral mucosa moist. Neck is no jugular venous distention. No carotid bruit. No lymph node enlargement. Cardiovascular S1-S2. No S3, no S4. Respiratory: Breath sounds diminished in the bases. No rhonchi. No crackles. ABDOMEN: Soft, mild diffuse discomfort. No palpation. No guarding. No rigidity. No mass palpable. No ascites. Legs no edema. No swelling. NERVOUS SYSTEM: Higher functions as mentioned earlier, moves all 4 limbs, no focal motor or sensory deficits. Lymphatics: No lymph nodes palpable in the neck, axillae or groin. Skin no ulcers, rashes or bleeding. LABS: CBC within normal limits and glucose 155. ASSESSMENT: 1. Chest and epigastric pain, rule out coronary artery disease. 2. Rule out cholelithiasis. 3. History of recent acute cerebrovascular accident with right hemiplegia. 4. Chronic obstructive pulmonary disease. 5. History of cerebrovascular accident/transient ischemic attack. 6. Diabetes type 2. 7. Hypertension. 8. History of narcolepsy. 9. Hyperlipidemia. RECOMMENDATIONS AND DISCUSSION: Recommend to continue current medication, management and symptomatic treatment, otherwise resume the home medications. Recommend rule out myocardial infarction , unstable angina protocol. I would also recommend a surgical evaluation also. We will will continue to monitor. Once again, the prognosis guarded because of the multiple complex medical issues and we will continue to monitor. Prognosis guarded. See orders for further details. Further recommendations to follow. MMODL / IJN: [id number] / MTDD
[2017-06-06] MEDS: oxyCODONE-APAP 5-325MG 1 EACH TAB PO PRN ×2 (00:40→22:50)
[2017-06-06 02:28] LABS: Hemoglobin A1C 6.9 % (4.0-6.0)
[2017-06-06 04:19] LABS: Basophils # (A) 0.1 k/uL (0-0.2); Basophils % (A) 1 %; Eosinophils # (A) 0.1 k/uL (0-0.7); Eosinophils % (A) 2 %; HCT 35.2 % (34.0-46.0); HGB 11.8 gm/dL (11.4-16.0); Lymphocytes % (A) 16 %; MCH 28.8 pg (25.0-35.0); MCHC 33.6 g/dL (31.0-37.0); MCV 85.7 fL (80.0-100.0); Mean Platelet Volume 7.9; Monocytes # (A) 0.4 k/uL (0-1.0); Monocytes % (A) 6 %; Neutrophils # (A) 4.4 k/uL (1.3-7.7); Neutrophils % (A) 73 %; Platelet Count 176 k/uL (150-450); RBC 4.11 m/uL (3.80-5.40); RDW 14.4 % (11.5-15.5); WBC 6.1 k/uL (3.8-10.6)
[2017-06-06 04:37] LABS: ALT 24 U/L (9-52); AST 13 U/L (14-36); Albumin 3.5 g/dL (3.5-5.0); Alkaline Phosphatase 71 U/L (38-126); Anion Gap 11 mmol/L; Blood Urea Nitrogen 12 mg/dL (7-17); Calcium 9.5 mg/dL (8.4-10.2); Carbon Dioxide 29 mmol/L (22-30); Chloride 104 mmol/L (98-107); Glucose 101 mg/dL (74-99); Potassium 3.3 mmol/L (3.5-5.1); Sodium 144 mmol/L (137-145); Total Bilirubin 0.8 mg/dL (0.2-1.3); Total Protein 5.5 g/dL (6.3-8.2)
[2017-06-06] MEDS: ALBUTEROL NEBULIZED 2.5 MG/3 ML INHALATION SCH ×4 (07:19→18:56)
[2017-06-06] MEDS: SYMBICORT 80-4.5 MCG INHALER INHALATION SCH ×2 (07:19→18:57)
[2017-06-06] MEDS ORDERED: DOBUTamine DRIP for NUC MED 250 MG in DEXTROSE/WATER 1 250ML.BAG IV ONE (08:16)
[2017-06-06] MEDS ORDERED: Potassium Replacement Protocol 1 EACH MISC MISCELLANE PRN ×2 (08:28→15:20)
[2017-06-06] MEDS ORDERED: MODAFINIL 100 MG TAB PO SCH (09:00)
[2017-06-06] MEDS ORDERED: SITAGLIPTIN PHOSPHATE 100 MG PO SCH (09:00)
[2017-06-06] MEDS ORDERED: LISINOPRIL 5 MG TAB PO SCH (09:00)
[2017-06-06] MEDS ORDERED: DULoxetine HCL 30 MG CAPSULE.DR PO SCH (09:00)
[2017-06-06] MEDS ORDERED: CLOPIDOGREL 75 MG TAB PO SCH ×2 (09:00)
--- NOTE | 2017-06-06 09:19 | P.CRDCN ---
History of Present Illness Consult date: 06/06/17 Consult reason: chest pain History of present illness: Mrs. Juarez is a pleasant 71-year-old female past medical history significant for COPD, hypertension, dyslipidemia, CVA with right sided weakness , anxiety and diabetes mellitus. She follows with Dr. Albert as an outpatient. We have been asked to see her in consultation for chest pain. She states yesterday while she was working with occupational therapist in her home she developed a pain in her chest that was across the upper chest from shoulder to shoulder with radiation under the left arm into the axilla. The pain lasted only a few minutes and was associated with mild shortness of breath. The OT checked her blood pressure and it was in the 130s systolic. She also describes that her heart was flip flopping and it was showing on the pulse oximeter that it was jumping from 70 to 90s. The pain then came back again while she was in the hospital. She was laying in bed when it started and it again radiated into the left axilla and lasted only a couple minutes. No nitro was given and no EKG from that time to evaluate. EKG reveals sinus mechanism with no acute ST or T-wave abnormalities. Telemetry tracings have been unremarkable. Chest xray is negative for an acute cardiopulmonary process. Laboratory data reviewed, hemoglobin 11.8, platelets 176, potassium on admission 4.0, this morning 3.3, magnesium 1.7, creatinine 2.6, cardiac enzymes negative 3. Current cardiac medications include atorvastatin 80 mg daily, Plavix 75 mg daily , lisinopril 5 mg daily. Most recent echocardiogram performed in October 2016 reveals preserved left ventricular systolic function with ejection fraction 60% with mild MR and mild TR. Most recent Lexiscan stress test done June 2016 was negative for reversible ischemia. She underwent cardiac catheterization in 2007 which revealed minimal CAD. Review of Systems At the time of my exam: CONSTITUTIONAL: Denies fever. Denies chills. EYES: Denies blurred vision. Denies vision changes. Denies eye pain. EARS, NOSE, MOUTH & THROAT: Denies headache. Denies sore throat. Denies ear pain. CARDIOVASCULAR: Denies chest pain. Denies shortness of breath. Denies orthopnea. Denies PND. Denies palpitations. RESPIRATORY: Denies cough. GASTROINTESTINAL: Denies abdominal pain. Denies diarrhea. Denies constipation. Denies nausea. Denies vomiting. MUSCULOSKELETAL: Denies myalgias. INTEGUMENTARY: Denies pruitis. Denies rash. NEUROLOGIC: Denies numbness. Denies tingling. Denies weakness. PSYCHIATRIC: Denies anxiety. Denies depression. ENDOCRINE: Denies fatigue. Denies weight change. Denies polydipsia. Denies polyurina. GENITOURINARY: Denies burning, hematuria or urgency with micturation. HEMATOLOGIC: Denies history of anemia. Denies bleeding. Past Medical History Past Medical History: Asthma, Coronary Artery Disease (CAD), COPD, CVA/TIA, Diabetes Mellitus, Hyperlipidemia, Hypertension, Pneumonia Additional Past Medical History / Comment(s): rt side dominant. cva affected rt side pt state regained most strength to rt arm/hand but rt leg still weak. getting o/pt at home twice a week, uses walker/cane short distance and walker for long distance, had a fall on sat(stated has bump rt side of head, hit rt shoulder/hip. 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 Rt lumpectomy - neg, D&C. Past Anesthesia/Blood Transfusion Reactions: No Reported Reaction Smoking Status: Never smoker - Past Family History Mother Family Medical History: Hyperlipidemia, Hypertension Additional Family Medical History / Comment(s): ANEMIA Father Family Medical History: Cancer, Diabetes Mellitus Additional Family Medical History / Comment(s): Stroke Medications and Allergies Home Medications Medication Instructions Recorded Confirmed Type Atorvastatin [Lipitor] 80 mg PO HS 03/21/14 06/05/17 History Baclofen 10 mg PO BID 03/21/14 06/05/17 History Dicyclomine [Bentyl] 10 mg PO QID PRN 03/21/14 06/05/17 History Pantoprazole Sodium [Protonix] 40 mg PO QAM 03/21/14 06/05/17 History Pramipexole Di-HCl [Mirapex] 1.5 mg PO HS 03/21/14 06/05/17 History Pregabalin [Lyrica] 200 mg PO TID 03/21/14 06/05/17 History sitaGLIPtin PHOSPHATE [Januvia] 100 mg PO QAM 03/21/14 06/05/17 History Lidocaine 5% Patch [Lidoderm 5% 1 patch TOPICAL DAILY PRN 03/09/15 06/05/17 History Patch] Montelukast [Singulair] 10 mg PO HS 04/11/15 06/05/17 History Cholecalciferol [Vitamin D3] 1,000 unit PO DAILY 03/12/16 06/05/17 History Ezetimibe [Zetia] 10 mg PO HS 03/12/16 06/05/17 History INSULIN LISPRO (For Pump) [humaLOG See Protocol SQ-PUMP CONTINUOUS 04/18/17 History (For Pump)] clonazePAM [KlonoPIN] 0.5 mg PO HS PRN tab 04/23/17 06/05/17 Rx Clopidogrel Bisulfate [Plavix] 75 mg PO QAM 05/06/17 06/05/17 History DULoxetine HCL [Cymbalta] 30 mg PO QAM 05/06/17 06/05/17 History Escitalopram [Lexapro] 5 mg PO HS 05/06/17 06/05/17 History Hydrocodone/Acetaminophen [Chualar 1 tab PO Q6HR PRN #15 tablet 05/09/17 06/05/17 Rx 7.5-325] traMADol HCl [Ultram] 50 mg PO TID #15 tab 05/09/17 06/05/17 Rx Albuterol Nebulized [Ventolin 2.5 mg INHALATION RT-QID 06/05/17 06/05/17 History Nebulized] Fluticasone/Salmeterol [Advair 1 puff INHALATION RT-BID 06/05/17 06/05/17 History 250-50 Diskus] Lisinopril [Zestril] 5 mg PO QAM 06/05/17 06/05/17 History Modafinil [Provigil] 200 mg PO QAM 06/05/17 06/05/17 History Allergies Allergy/AdvReac Type Severity Reaction Status Date / Time aspirin Allergy Swelling Verified 06/05/17 20:34 ibuprofen Allergy Swelling Verified 06/05/17 20:34 ipratropium bromide Allergy Swelling Verified 06/05/17 20:34 [From Atrovent] meperidine HCl [From Demerol] Allergy Rash/Hives Verified 06/05/17 20:34 hydromorphone HCl AdvReac Nausea & Verified 06/05/17 20:34 [From Dilaudid] Vomiting metformin AdvReac Unknown Verified 06/05/17 20:34 morphine AdvReac Vomiting Verified 06/05/17 20:34 trazodone AdvReac Weakness Verified 06/05/17 20:34 zolpidem tartrate AdvReac Hallucinati Verified 06/05/17 20:34 [From Ambien] ons MSG Allergy Rash/Hives Uncoded 06/05/17 20:34 Physical Exam Vitals: Vital Signs Temp Pulse Pulse Resp BP BP Pulse Ox 06/06/17 07:32 80 06/06/17 07:20 72 06/06/17 07:15 98.1 F 69 16 109/63 100 06/06/17 04:00 98.6 F 68 18 147/72 95 06/05/17 23:53 98 F 82 18 127/57 96 06/05/17 23:50 94 18 06/05/17 20:00 94 18 06/05/17 19:41 95 06/05/17 19:33 93 06/05/17 18:15 97.9 F 93 18 122/77 99 06/05/17 17:10 97.9 F 78 18 142/79 97 06/05/17 16:04 94 18 131/69 98 06/05/17 15:03 98.6 F 104 H 20 131/69 96 Intake and Output 06/05/17 06/06/17 06/06/17 22:59 06:59 14:59 Intake Total 600 100 Balance 600 100 Intake: Oral 600 100 Other: Voiding Method Toilet Toilet # Voids 2 2 Weight 72.1 kg Blood pressure 109/63 heart rate 69 afebrile maintaining oxygen saturation on room air GENERAL: This is a 71-year-old female in no apparent distress at the time of my examination. Obese. HEENT: Head is atraumatic, normocephalic. Pupils are equal, round. Sclerae anicteric. Conjunctivae are clear. Mucous membranes of the mouth are moist. Neck is supple. There is no jugular venous distention. No carotid bruit is heard. LUNGS: Clear to auscultation no wheezes, rales or rhonchi. No chest wall tenderness is noted on palpation or with deep breathing. HEART: Regular rate and rhythm with faint systolic ejection murmur at the base, no rubs or gallops. S1 and S2 heard. ABDOMEN: Soft, nontender. Bowel sounds are heard. No organomegaly noted. EXTREMITIES: No evidence of peripheral edema and no calf tenderness noted. VASCULAR: Radial and dorsalis pedis pulses palpated, no evidence of clubbing. NEUROLOGIC: Patient is awake, alert and oriented x3. Results 06/06/17 03:57 06/06/17 03:57 Cardiac Enzymes 06/05/17 06/05/17 06/05/17 Range/Units 16:18 16:18 22:18 AST 23 (14-36) U/L Troponin I <0.012 <0.012 (0.000-0.034) ng/mL 06/06/17 06/06/17 Range/Units 03:57 03:57 AST 13 L (14-36) U/L Troponin I <0.012 (0.000-0.034) ng/mL Coagulation 06/05/17 Range/Units 17:41 PT 9.6 (9.0-12.0) sec APTT 22.6 (22.0-30.0) sec CBC 06/05/17 06/06/17 Range/Units 16:18 03:57 WBC 7.6 6.1 (3.8-10.6) k/uL RBC 4.45 4.11 (3.80-5.40) m/uL Hgb 13.1 11.8 (11.4-16.0) gm/dL Hct 38.1 35.2 (34.0-46.0) % Plt Count 185 176 (150-450) k/uL Comprehensive Metabolic Panel 06/05/17 06/06/17 Range/Units 16:18 03:57 Sodium 142 144 (137-145) mmol/L Potassium 4.0 3.3 L (3.5-5.1) mmol/L Chloride 103 104 (98-107) mmol/L Carbon Dioxide 26 29 (22-30) mmol/L BUN 16 12 (7-17) mg/dL Creatinine 0.50 L 0.60 (0.52-1.04) mg/dL Glucose 154 H 101 H (74-99) mg/dL Calcium 9.6 9.5 (8.4-10.2) mg/dL AST 23 13 L (14-36) U/L ALT 30 24 (9-52) U/L Alkaline Phosphatase 79 71 (38-126) U/L Total Protein 6.4 5.5 L (6.3-8.2) g/dL Albumin 3.9 3.5 (3.5-5.0) g/dL Current Medications Generic Name Dose Route Start Last Admin Trade Name Freq PRN Reason Stop Dose Admin Albuterol Sulfate 2.5 mg 06/05/17 20:00 06/06/17 07:19 Ventolin Nebulized INHALATION 2.5 mg RT-QID LEO Administration Atorvastatin Calcium 80 mg 06/05/17 21:00 06/05/17 21:45 Lipitor PO 80 mg HS LEO Administration Baclofen 10 mg 06/05/17 21:00 06/05/17 21:22 Lioresal PO 10 mg BID LEO Administration Budesonide/Formoterol Fumarate 2 puff 06/05/17 20:00 06/06/17 07:19 Symbicort 80-4.5 Mcg Inhaler INHALATION 2 puff RT-BID LEO Administration Clonazepam 0.5 mg 06/05/17 20:34 06/05/17 21:23 Klonopin PO 0.5 mg HS PRN Administration Insomnia Clopidogrel Bisulfate 75 mg 06/06/17 09:00 Plavix PO QAM [facility] Duloxetine HCl 30 mg 06/06/17 09:00 Cymbalta PO QAM LEO Ezetimibe 10 mg 06/05/17 21:00 06/05/17 21:22 Zetia PO 10 mg HS LEO Administration Escitalopram Oxalate 5 mg 06/05/17 21:00 06/05/17 22:11 Lexapro PO 5 mg HS LEO Administration Famotidine 20 mg 06/05/17 21:00 06/05/17 21:23 Pepcid PO 20 mg BID LEO Administration Insulin Aspart 0 unit 06/05/17 18:45 Novolog SQ DAILY PRN Insulin Pump Replacement Lidocaine 1 patch 06/05/17 20:34 Lidoderm TOPICAL DAILY PRN Pain Linagliptin 5 mg 06/06/17 09:00 Tradjenta PO QAM LEO Lisinopril 5 mg 06/06/17 09:00 Zestril PO QAM [facility] Miscellaneous Information 1 each 06/05/17 18:45 Insulin Pump Basal Rates MISCELLANE Q6HR PRN Blood Sugar - High Protocol Miscellaneous Information 0 unit 06/05/17 18:45 Insulin Pump Correction Bolus MISCELLANE ACHS PRN Blood Sugar - High Protocol Miscellaneous Information 0 unit 06/05/17 21:00 06/05/17 22:11 Insulin Pump Meal Bolus MISCELLANE 5.5 unit ACHS LEO Administration Protocol Miscellaneous Information 1 each 06/06/17 08:28 Potassium Per Protocol MISCELLANE DAILY PRN Per Protocol Protocol Modafinil 200 mg 06/06/17 09:00 Provigil PO QAM [facility] Montelukast Sodium 10 mg 06/05/17 21:00 06/05/17 21:22 Singulair PO 10 mg HS [facility] Administration Naloxone HCl 0.2 mg 06/05/17 16:44 Narcan IV Q2M PRN Opioid Reversal Ondansetron HCl 4 mg 06/05/17 16:44 Zofran IVP Q8HR PRN Nausea And Vomiting Oxycodone/Acetaminophen 1 each 06/05/17 16:44 06/06/17 00:40 Percocet 5-325 PO 1 each Q4HR PRN Administration Severe Pain Pantoprazole Sodium 40 mg 06/06/17 09:00 Protonix PO QAM [facility] Potassium Chloride 20 meq 06/06/17 09:00 K-Dur 20 PO 06/06/17 10:01 Q1HR [facility] Pramipexole Dihydrochloride 1.5 mg 06/05/17 21:00 06/05/17 21:45 Mirapex PO 1.5 mg HS [facility] Administration Pregabalin 200 mg 06/05/17 22:00 06/05/17 21:45 Lyrica PO 200 mg TID LEO Administration Tramadol HCl 50 mg 06/05/17 16:44 06/06/17 05:25 Ultram PO 50 mg Q6H PRN Administration Mild to Moderate Pain Tramadol HCl 50 mg 06/05/17 22:00 06/05/17 21:45 Ultram PO 50 mg TID LEO Administration Intake and Output 06/05/17 06/06/17 06/06/17 22:59 06:59 14:59 Intake Total 600 100 Balance 600 100 Intake: Oral 600 100 Other: Voiding Method Toilet Toilet # Voids 2 2 Weight 72.1 kg 06/06/17 03:57 06/06/17 03:57 Assessment and Plan Assessment: ASSESSMENT 1. Chest pain, atypical. An acute coronary event has been ruled out with normal EKG evidence of ischemia negative cardiac enzymes. 2. Hypertension, controlled 3. Dyslipidemia 4. Diabetes mellitus 5. COPD 6. History of CVA with right-sided weakness 7. Obesity 8. Hypokalemia PLAN Replace potassium per protocol. Perform dobutamine stress echocardiogram to assess for stress-induced cardiac ischemia. If the stress test is normal she is stable from a cardiac perspective. Follow-up with Dr. Albert in 2-3 weeks. The above impression and plan of care have been discussed and directed by the signing physician. Naye Hoyt, nurse practitioner, acting as scribe for signing physician.
[2017-06-06] MEDS ORDERED: POTASSIUM CHLORIDE 20 MEQ in WATER FOR INJECTION 1 100ML.BAG IVPB STA (10:36)
--- NOTE | 2017-06-06 10:47 | US ---
EXAMINATION TYPE: US abdomen limited DATE OF EXAM: 06/06/2017 COMPARISON: Ultrasound abdomen 05/07/2017, CT abdomen pelvis 03/09/2015 CLINICAL HISTORY: abd pain/Gallbladder. Chest pain EXAM MEASUREMENTS: Liver Length: 15.1 cm Gallbladder Wall: 0.2 cm CBD: 0.4 cm Right Kidney: 11.2 x 5.1 x 5.2 cm Pancreas: Tail obscured by overlying bowel gas Liver: There is a somewhat coarse echotexture compatible with hepatic steatosis Gallbladder: Two small stones visualized Evidence for sonographic Bruner's sign: No CBD: wnl Right Kidney: No hydronephrosis or masses seen There is no ascites. IMPRESSION: Hepatic steatosis. Cholelithiasis.
--- NOTE | 2017-06-06 10:48 | ECHOS ---
STRESS ECHOCARDIOGRAM DOBUTAMINE STRESS ECHO DATE OF SERVICE: 06/06/2017 INDICATIONS: Chest pain. MEDICATIONS: BASELINE HEART RATE: 79 BASELINE BLOOD PRESSURE: 144/79 MAXIMUM HEART RATE: 138 MAXIMUM BLOOD PRESSURE: 184/47 85% MPHR: 128 100% MPHR: 151 METS: MAXIMUM STAGE REACHED: TOTAL EXERCISE TIME: CLINICAL INFORMATION: Baseline EKG shows sinus rhythm, normal axis, normal intervals. Patient was given intravenous dobutamine over a period of 8 minutes as per protocol. Did not have chest pain or diagnostic ST-segment depression. Baseline echo shows normal left ventricular size, wall motion and systolic function. Post dobutamine infusion, there is normal hyperdynamic response of all segments of myocardium noted. CONCLUSIONS: 1. Negative stress test by EKG criteria. 2. Negative dobutamine echo. MMODL / IJN: [id number] /
[2017-06-06] MEDS: INSULIN PUMP MEAL BOLUS 1 UNIT MISC MISCELLANE SCH ×4 (11:32→22:07)
[2017-06-06] MEDS ORDERED: INSULIN PUMP ACTIVE INSULIN 1 EACH MISC MISCELLANE PRN (11:42)
[2017-06-06] MEDS ORDERED: INSULIN PUMP TARGET GLUCOSE 1 EACH MISC MISCELLANE PRN (11:42)
--- NOTE | 2017-06-06 11:42 | P.GSCN ---
<Ingrid Baxter - Last Filed: 06/06/17 11:00> History of Present Illness Consult date: 06/06/17 Reason for Consult: Right upper quadrant pain History of present illness: 71-year-old female being seen at the request of the attending for surgical eval for right upper quadrant pain. Patient is known to Dr. Jackson service. Was seen by Dr. Jackson for right upper quadrant pain May 07. At that time an ultrasound of the abdomen show gallstones with a positive Bruner sign. Recommendations at that time were to continue a neurological workup and patient would be seen in outpatient setting to discuss elective cholecystectomy for chronic cholecystitis patient did undergo this morning an ultrasound of the abdomen reviewing the report no ascites no hydronephrosis no mass several small gallstones visualized. Patient was just discharged from [facility] after recuperating from a recent CVA right side weakness Patient reports that she was home last evening when she had a sudden onset of right upper quadrant abdominal pain lasted an hour it resolved currently states there's some tenderness but the pain has improved. No nausea no vomiting with the pain. It's noted the patient has been seen by cardiology underwent a dobutamine stress test this morning which was negative per the report past medical history of a recent CVA with right side weakness, diabetes, COPD, hypertension dyslipidemia, right breast cancer, narcolepsy, coronary artery disease, chronic cholecystitis past surgical history appendectomy, right lumpectomy, hernia repair, hysterectomy, heart catheterization Review of Systems Essentially unremarkable except as mentioned in the present illness Past Medical History Past Medical History: Asthma, Coronary Artery Disease (CAD), COPD, CVA/TIA, Diabetes Mellitus, Hyperlipidemia, Hypertension, Pneumonia Additional Past Medical History / Comment(s): rt side dominant. cva affected rt side pt state regained most strength to rt arm/hand but rt leg still weak. getting o/pt at home twice a week, uses walker/cane short distance and walker for long distance, had a fall on sat(stated has bump rt side of head, hit rt shoulder/hip. 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 Rt lumpectomy - neg, D&C. Past Anesthesia/Blood Transfusion Reactions: No Reported Reaction Smoking Status: Never smoker - Past Family History Mother Family Medical History: Hyperlipidemia, Hypertension Additional Family Medical History / Comment(s): ANEMIA Father Family Medical History: Cancer, Diabetes Mellitus Additional Family Medical History / Comment(s): Stroke Medications and Allergies Home Medications Medication Instructions Recorded Confirmed Type Atorvastatin [Lipitor] 80 mg PO HS 03/21/14 06/05/17 History Baclofen 10 mg PO BID 03/21/14 06/05/17 History Dicyclomine [Bentyl] 10 mg PO QID PRN 03/21/14 06/05/17 History Pantoprazole Sodium [Protonix] 40 mg PO QAM 03/21/14 06/05/17 History Pramipexole Di-HCl [Mirapex] 1.5 mg PO HS 03/21/14 06/05/17 History Pregabalin [Lyrica] 200 mg PO TID 03/21/14 06/05/17 History sitaGLIPtin PHOSPHATE [Januvia] 100 mg PO QAM 03/21/14 06/05/17 History Lidocaine 5% Patch [Lidoderm 5% 1 patch TOPICAL DAILY PRN 03/09/15 06/05/17 History Patch] Montelukast [Singulair] 10 mg PO HS 04/11/15 06/05/17 History Cholecalciferol [Vitamin D3] 1,000 unit PO DAILY 03/12/16 06/05/17 History Ezetimibe [Zetia] 10 mg PO HS 03/12/16 06/05/17 History INSULIN LISPRO (For Pump) [humaLOG See Protocol SQ-PUMP CONTINUOUS 04/18/17 History (For Pump)] clonazePAM [KlonoPIN] 0.5 mg PO HS PRN tab 04/23/17 06/05/17 Rx Clopidogrel Bisulfate [Plavix] 75 mg PO QAM 05/06/17 06/05/17 History DULoxetine HCL [Cymbalta] 30 mg PO QAM 05/06/17 06/05/17 History Escitalopram [Lexapro] 5 mg PO HS 05/06/17 06/05/17 History Hydrocodone/Acetaminophen [Alma 1 tab PO Q6HR PRN #15 tablet 05/09/17 06/05/17 Rx 7.5-325] traMADol HCl [Ultram] 50 mg PO TID #15 tab 05/09/17 06/05/17 Rx Albuterol Nebulized [Ventolin 2.5 mg INHALATION RT-QID 06/05/17 06/05/17 History Nebulized] Fluticasone/Salmeterol [Advair 1 puff INHALATION RT-BID 06/05/17 06/05/17 History 250-50 Diskus] Lisinopril [Zestril] 5 mg PO QAM 06/05/17 06/05/17 History Modafinil [Provigil] 200 mg PO QAM 06/05/17 06/05/17 History Allergies Allergy/AdvReac Type Severity Reaction Status Date / Time aspirin Allergy Swelling Verified 06/05/17 20:34 ibuprofen Allergy Swelling Verified 06/05/17 20:34 ipratropium bromide Allergy Swelling Verified 06/05/17 20:34 [From Atrovent] meperidine HCl [From Demerol] Allergy Rash/Hives Verified 06/05/17 20:34 hydromorphone HCl AdvReac Nausea & Verified 06/05/17 20:34 [From Dilaudid] Vomiting metformin AdvReac Unknown Verified 06/05/17 20:34 morphine AdvReac Vomiting Verified 06/05/17 20:34 trazodone AdvReac Weakness Verified 06/05/17 20:34 zolpidem tartrate AdvReac Hallucinati Verified 06/05/17 20:34 [From Ambien] ons MSG Allergy Rash/Hives Uncoded 06/05/17 20:34 Surgical - Exam Vital Signs Temp Pulse Resp BP Pulse Ox 98.6 F 104 H 20 131/69 96 06/05/17 15:03 06/05/17 15:03 06/05/17 15:03 06/05/17 15:03 06/05/17 15:03 GENERAL APPEARANCE: 71-year-old female patient is alert, oriented 3, in no acute distress. VITAL SIGNS: Reviewed HEENT: Head is normocephalic and atraumatic. Pupils are equal and reactive. The nares are patent. Oropharynx is clear without lesions. NECK: Supple without lymphadenopathy. Traches midline. HEART: S1, S2. Regular rate and rhythm. No murmur noted currently denying chest pain when questioning LUNGS: No crackles or wheezes are heard. Adequate air movement bilaterally on room air ABDOMEN: Soft, nontender no facial grimacing with palpitation to the abdominal wall reports no nausea vomiting tolerating diet nondistended with good bowel sounds. No peritoneal signs. No palpable organomegaly or masses. Reports abdominal pain has resolved EXTREMITIES: Normal skin color and turgor. No cyanosis, rash, ulceration, clubbing or edema. Radial pedal pulses are 2/4 bilaterally. Results - Labs 06/06/17 03:57 06/06/17 03:57 Abnormal Lab Results - Last 24 Hours (Table) 06/05/17 06/05/17 06/06/17 Range/Units 16:18 16:18 03:57 Potassium 3.3 L (3.5-5.1) mmol/L Creatinine 0.50 L (0.52-1.04) mg/dL Glucose 154 H 101 H (74-99) mg/dL Hemoglobin A1c 6.9 H (4.0-6.0) % AST 13 L (14-36) U/L Total Protein 5.5 L (6.3-8.2) g/dL Diabetes panel 06/05/17 06/05/17 06/06/17 Range/Units 16:18 16:18 03:57 Sodium 142 144 (137-145) mmol/L Potassium 4.0 3.3 L (3.5-5.1) mmol/L Chloride 103 104 (98-107) mmol/L Carbon Dioxide 26 29 (22-30) mmol/L BUN 16 12 (7-17) mg/dL Creatinine 0.50 L 0.60 (0.52-1.04) mg/dL Glucose 154 H 101 H (74-99) mg/dL Hemoglobin A1c 6.9 H (4.0-6.0) % Calcium 9.6 9.5 (8.4-10.2) mg/dL AST 23 13 L (14-36) U/L ALT 30 24 (9-52) U/L Alkaline Phosphatase 79 71 (38-126) U/L Total Protein 6.4 5.5 L (6.3-8.2) g/dL Albumin 3.9 3.5 (3.5-5.0) g/dL Calcium panel 06/05/17 06/06/17 Range/Units 16:18 03:57 Calcium 9.6 9.5 (8.4-10.2) mg/dL Albumin 3.9 3.5 (3.5-5.0) g/dL Pituitary panel 06/05/17 06/06/17 Range/Units 16:18 03:57 Sodium 142 144 (137-145) mmol/L Potassium 4.0 3.3 L (3.5-5.1) mmol/L Chloride 103 104 (98-107) mmol/L Carbon Dioxide 26 29 (22-30) mmol/L BUN 16 12 (7-17) mg/dL Creatinine 0.50 L 0.60 (0.52-1.04) mg/dL Glucose 154 H 101 H (74-99) mg/dL Calcium 9.6 9.5 (8.4-10.2) mg/dL Adrenal panel 06/05/17 06/06/17 Range/Units 16:18 03:57 Sodium 142 144 (137-145) mmol/L Potassium 4.0 3.3 L (3.5-5.1) mmol/L Chloride 103 104 (98-107) mmol/L Carbon Dioxide 26 29 (22-30) mmol/L BUN 16 12 (7-17) mg/dL Creatinine 0.50 L 0.60 (0.52-1.04) mg/dL Glucose 154 H 101 H (74-99) mg/dL Calcium 9.6 9.5 (8.4-10.2) mg/dL Total Bilirubin 0.8 0.8 (0.2-1.3) mg/dL AST 23 13 L (14-36) U/L ALT 30 24 (9-52) U/L Alkaline Phosphatase 79 71 (38-126) U/L Total Protein 6.4 5.5 L (6.3-8.2) g/dL Albumin 3.9 3.5 (3.5-5.0) g/dL Assessment and Plan Assessment: Impression Present on admission atypical chest pain with a negative cardiac workup dobutamine stress echo negative per cardiology History of a recent CVA with right side weakness History of a prior TIA on Plavix Dyslipidemia Chronic cholecystitis A recent right upper quadrant abdominal pain suspect due to cholecystitis Electrolyte abnormality hypokalemia Plan Hold Plavix for now Continue recommendations by the attending defer to Further recommendations after Dr. Jackson evaluates patient as to the timing of the lap cholecystectomy DVT and GI prophylaxis Replace potassium follow-up on pending labs Further surgical recommendations pending will follow with you Surgical consultation note dictated for Dr. Jackson The above impression and plan of care have been discussed and directed by signing physician. Ingrid Baxter nurse practitioner acting as scribe for signing physician. <Pk Jackson - Last Filed: 06/06/17 13:13> Surgical - Exam Vital Signs Temp Pulse Resp BP Pulse Ox 98.6 F 104 H 20 131/69 96 06/05/17 15:03 06/05/17 15:03 06/05/17 15:03 06/05/17 15:03 06/05/17 15:03 Results - Labs 06/06/17 03:57 06/06/17 03:57 Abnormal Lab Results - Last 24 Hours (Table) 06/05/17 06/05/17 06/06/17 Range/Units 16:18 16:18 03:57 Potassium 3.3 L (3.5-5.1) mmol/L Creatinine 0.50 L (0.52-1.04) mg/dL Glucose 154 H 101 H (74-99) mg/dL Hemoglobin A1c 6.9 H (4.0-6.0) % AST 13 L (14-36) U/L Total Protein 5.5 L (6.3-8.2) g/dL Diabetes panel 06/05/17 06/05/17 06/06/17 Range/Units 16:18 16:18 03:57 Sodium 142 144 (137-145) mmol/L Potassium 4.0 3.3 L (3.5-5.1) mmol/L Chloride 103 104 (98-107) mmol/L Carbon Dioxide 26 29 (22-30) mmol/L BUN 16 12 (7-17) mg/dL Creatinine 0.50 L 0.60 (0.52-1.04) mg/dL Glucose 154 H 101 H (74-99) mg/dL Hemoglobin A1c 6.9 H (4.0-6.0) % Calcium 9.6 9.5 (8.4-10.2) mg/dL AST 23 13 L (14-36) U/L ALT 30 24 (9-52) U/L Alkaline Phosphatase 79 71 (38-126) U/L Total Protein 6.4 5.5 L (6.3-8.2) g/dL Albumin 3.9 3.5 (3.5-5.0) g/dL Calcium panel 06/05/17 06/06/17 Range/Units 16:18 03:57 Calcium 9.6 9.5 (8.4-10.2) mg/dL Albumin 3.9 3.5 (3.5-5.0) g/dL Pituitary panel 06/05/17 06/06/17 Range/Units 16:18 03:57 Sodium 142 144 (137-145) mmol/L Potassium 4.0 3.3 L (3.5-5.1) mmol/L Chloride 103 104 (98-107) mmol/L Carbon Dioxide 26 29 (22-30) mmol/L BUN 16 12 (7-17) mg/dL Creatinine 0.50 L 0.60 (0.52-1.04) mg/dL Glucose 154 H 101 H (74-99) mg/dL Calcium 9.6 9.5 (8.4-10.2) mg/dL Adrenal panel 06/05/17 06/06/17 Range/Units 16:18 03:57 Sodium 142 144 (137-145) mmol/L Potassium 4.0 3.3 L (3.5-5.1) mmol/L Chloride 103 104 (98-107) mmol/L Carbon Dioxide 26 29 (22-30) mmol/L BUN 16 12 (7-17) mg/dL Creatinine 0.50 L 0.60 (0.52-1.04) mg/dL Glucose 154 H 101 H (74-99) mg/dL Calcium 9.6 9.5 (8.4-10.2) mg/dL Total Bilirubin 0.8 0.8 (0.2-1.3) mg/dL AST 23 13 L (14-36) U/L ALT 30 24 (9-52) U/L Alkaline Phosphatase 79 71 (38-126) U/L Total Protein 6.4 5.5 L (6.3-8.2) g/dL Albumin 3.9 3.5 (3.5-5.0) g/dL Assessment and Plan Assessment: As above. Patient known to our service from previous symptomatic cholelithiasis. Currently the patient has active tenderness in the right upper quadrant. Patient will require cholecystectomy. She and I discussed the options of performing the procedure today or discharging with outpatient cholecystectomy next week while holding Plavix. She understands there is a slightly higher risk of bleeding if we do the procedure today. At the same time there is a slightly higher risk of stroke if we hold her Plavix for a long duration. After speaking with the patient's primary service we decided to proceed with cholecystectomy at this time. Risks of bleeding, infection, abscess, bile leak, bile duct injury, conversion to an open procedure, anesthesia related complications were discussed. She understands and wishes to proceed.
[2017-06-06] MEDS ORDERED: ACETAMINOPHEN TAB 325 MG TAB PO PRN (13:26)
[2017-06-06] MEDS: POTASSIUM CHLORIDE ER 20 MEQ TAB.ER PO SCH ×2 (15:23→21:37)
[2017-06-06] MEDS ORDERED: LACTATED RINGERS 1,000 ML IV ONE (15:54)
[2017-06-06] MEDS ORDERED: HEPARIN SODIUM,PORCINE 5,000 UNIT/ML 1 ML VIAL SQ ONE (16:17)
[2017-06-06] MEDS ORDERED: LIDOCAINE 1% INJ 10MG/ML (20 ML MDV) ONE (16:33)
[2017-06-06] MEDS ORDERED: ROCURONIUM BROMIDE 10 MG/ML 10 ML VIAL IV ONE (16:33)
[2017-06-06] MEDS ORDERED: GLYCOPYRROLATE 0.2 MG/ML 2 ML VIAL ONE (16:33)
[2017-06-06] MEDS ORDERED: NEOSTIGMINE 1 MG/ML 10 ML VIAL ONE (16:33)
[2017-06-06] MEDS ORDERED: SUCCINYLCHOLINE CHLORIDE 100 MG/5 ML SYR IV ONE (16:33)
[2017-06-06] MEDS ORDERED: fentaNYL (PF) 50 MCG/ML 2 ML AMP ONE (16:33)
[2017-06-06] MEDS ORDERED: PROPOFOL 10 MG/ML 20 ML VIAL IV ONE (16:33)
[2017-06-06] MEDS ORDERED: MIDAZOLAM 2 MG/2 ML VIAL ONE (16:33)
[2017-06-06] MEDS ORDERED: SODIUM CHLORIDE 0.9% 50 ML with ceFAZolin 2,000 MG IV ONE ×2 (16:51)
[2017-06-06] MEDS ORDERED: BUPIVACAINE (PF) 0.25% 30 ML VIAL SQ ONE ×2 (17:04→17:21)
--- NOTE | 2017-06-06 17:36 | P.OP ---
Date of Procedure: 06/06/17 Procedure(s) Performed: PREOPERATIVE DIAGNOSIS: Acute cholecystitis POSTOPERATIVE DIAGNOSIS: Same PROCEDURE: Laparoscopic cholecystectomy SURGEON: Renetta EBL: Minimal see anesthesia record ANESTHESIA: Gen. COMPLICATIONS: None OPERATIVE PROCEDURE: The patient was brought and placed on the operating room table in the supine position. The patient was placed under general anesthesia at that time. The abdomen was prepped and draped in the usual sterile fashion. A horizontal 5 mm incision was made in the left upper quadrant. Entrance into the perineal cavity occurred using a 5 mm optical trocar. There were some adhesions identified at the umbilicus. Insufflation took place up to 15 mmHg. A 5 mm optical trocar was advanced and the peritoneal cavity just above these adhesions. 2 additional 5 mm trochars were placed in the right upper quadrant under direct visualization. A 12 mm trocar was advanced into the epigastric incision site. The gallbladder was retracted superiorly and laterally. The peritoneum overlying the infundibulum was bluntly dissected. The patient's cystic duct was visualized. The junction between the cystic duct common and hepatic duct was identified. The cystic duct was then divided after placement of 3 10 mm clips on the patient's side and one on the specimen side. The cystic artery was identified and clipped as well. A small vessel was seen along the gallbladder fossa and clipped as well. The gallbladder was then removed from the liver bed using electrocautery. The gallbladder was then removed from the epigastric trocar site with an Endo Catch bag. The gallbladder fossa was irrigated with saline. There was no evidence of any bleeding or biliary drainage seen. The trochars were then removed. The fascia at the 12 millimeter site was closed using a Markos-Chris 0 Vicryl stitch. The skin at all 5 sites was closed using a 4-0 Monocryl stitch. An external [id number] Monocryl stitch was placed in the left upper quadrant trocar site because of some skin bruising. At the end of this procedure the sponge and needle counts were correct. DISPOSITION: Stable to the recovery room
[2017-06-06] MEDS: LINAGLIPTIN 5 MG TABLET PO SCH (18:37)
[2017-06-06] MEDS: LISINOPRIL 5 MG TAB PO SCH (18:37)
[2017-06-06] MEDS: BACLOFEN 10 MG TAB PO SCH ×2 (18:37→21:38)
[2017-06-06] MEDS: DULoxetine HCL 30 MG CAPSULE.DR PO SCH (18:37)
[2017-06-06] MEDS: PANTOPRAZOLE 40 MG TABLET PO SCH (18:38)
[2017-06-06] MEDS: traMADol 50 MG TAB PO SCH ×2 (18:38→21:38)
[2017-06-06] MEDS: PREGABALIN 100 MG CAP PO SCH ×2 (18:38→21:38)
[2017-06-06] MEDS: FAMOTIDINE 20 MG TAB PO SCH (18:45)
[2017-06-06 21:01] LABS: Glucose,Whole Blood 178 mg/dL (75-99)
--- NOTE | 2017-06-06 21:28 | PN ---
PROGRESS NOTE DATE OF SERVICE: 06/06/2017. INTERVAL HISTORY: This 71-year-old woman who was admitted with chest pain also had cholelithiasis. Stress test is negative. Patient underwent laparoscopic cholecystectomy by Dr. Jackson. The patient being closely monitored. There is no history of fever, rigors or chills. No history of headache, loss of consciousness, seizures. EXAM: Alert and oriented times three. Pulse 79, blood pressure 151/71, respiration 18, temperature 97.4, pulse ox 93% on 8 L. HEENT: Conjunctivae normal. Cardiovascular: S1, S2 muffled. Breath sounds diminished at the bases. A few scattered rhonchi. No crackles. Abdomen is soft, nontender. Legs are no edema, no swelling. CENTRAL NERVOUS SYSTEM: No focal deficits. LABS: CBC within normal limits. Potassium 3.3. ASSESSMENT: 1. Epigastric pain, possible acute cholelithiasis and cholecystitis status post laparoscopic cholecystectomy. 2. Negative stress test. 3. History of recent acute cerebrovascular accident with right hemiplegia, improved. 4. Chronic obstructive pulmonary disease. 5. Cerebrovascular accident, transient ischemic attack. 6. Diabetes type 2. 7. Hypertension. 8. History of narcolepsy. 9. Hyperlipidemia. RECOMMENDATIONS AND DISCUSSION: Recommend to continue current medications, management and symptomatic treatment. Otherwise at this time, I recommend continue with the rest of the medications, DVT prophylaxis. Incentive spirometry. Closely follow with surgery. Cardiology input appreciated. Further recommendations to follow. MMODL / IJN: [id number] /
[2017-06-06] MEDS: PRAMIPEXOLE 0.5 MG TAB PO SCH (21:37)
[2017-06-06] MEDS: ATORVASTATIN 80 MG TAB PO SCH (21:37)
[2017-06-06] MEDS: MONTELUKAST 10 MG TAB PO SCH (21:38)
[2017-06-06] MEDS: EZETIMIBE 10 MG TAB PO SCH (21:38)
[2017-06-06] MEDS: ESCITALOPRAM 5 MG TAB PO SCH (21:38)
[2017-06-07] MEDS: oxyCODONE-APAP 5-325MG 1 EACH TAB PO PRN ×2 (03:56→10:42)
[2017-06-07] MEDS: ALBUTEROL NEBULIZED 2.5 MG/3 ML INHALATION SCH ×2 (07:04→11:25)
[2017-06-07] MEDS: SYMBICORT 80-4.5 MCG INHALER INHALATION SCH (07:04)
[2017-06-07 07:21] LABS: Basophils % (A) 1 %; Eosinophils # (A) 0.1 k/uL (0-0.7); Eosinophils % (A) 2 %; HGB 12.7 gm/dL (11.4-16.0); Lymphocytes # (A) 0.9 k/uL (1.0-4.8); Lymphocytes % (A) 10 %; MCH 29.4 pg (25.0-35.0); MCHC 34.2 g/dL (31.0-37.0); MCV 85.9 fL (80.0-100.0); Mean Platelet Volume 7.8; Monocytes # (A) 0.5 k/uL (0-1.0); Monocytes % (A) 6 %; Neutrophils # (A) 6.8 k/uL (1.3-7.7); Neutrophils % (A) 80 %; Platelet Count 219 k/uL (150-450); Poikilocytosis Slight; RBC 4.31 m/uL (3.80-5.40); RDW 14.1 % (11.5-15.5); WBC 8.5 k/uL (3.8-10.6)
--- NOTE | 2017-06-07 07:26 | P.PN ---
Subjective Progress Note Date: 06/07/17 Principal diagnosis: Cholecystitis Patient doing fairly well. Having some upper abdominal pain. Tolerating liquids. Ambulating. Objective - Vital Signs Vital signs: Vital Signs Temp 98 F 06/07/17 04:00 Pulse 81 06/07/17 00:00 Resp 17 06/07/17 04:00 BP 110/65 06/07/17 04:00 Pulse Ox 94 L 06/07/17 04:00 Intake & Output 06/06/17 06/07/17 06/07/17 18:59 06:59 18:59 Intake Total 700 250 Output Total 10 Balance 690 250 Intake: IV 700 Oral 250 Output: Estimated Blood Loss 10 Other: Voiding Method Toilet Toilet Diaper Diaper # Voids 1 - Exam Abdomen: Soft, nondistended, mild epigastric tenderness, dressings intact - Labs CBC & Chem 7: 06/07/17 06:41 06/06/17 03:57 Labs: Abnormal Lab Results - Last 24 Hours (Table) 06/05/17 06/06/17 06/07/17 Range/Units 16:18 20:58 06:41 Lymphocytes # 0.9 L (1.0-4.8) k/uL POC Glucose (mg/dL) 178 H (75-99) mg/dL Hemoglobin A1c 6.9 H (4.0-6.0) % Assessment and Plan (1) Chronic cholecystitis Narrative/Plan: Advance diet as tolerated. Check morning labs. Probable discharge later today. Resume Plavix tomorrow. Current Visit: No Status: Chronic Code(s): K81.1 - CHRONIC CHOLECYSTITIS SNOMED Code(s): 87129906
[2017-06-07 07:40] LABS: ALT 36 U/L (9-52); AST 30 U/L (14-36); Albumin 3.4 g/dL (3.5-5.0); Alkaline Phosphatase 78 U/L (38-126); Anion Gap 11 mmol/L; Blood Urea Nitrogen 10 mg/dL (7-17); Calcium 9.3 mg/dL (8.4-10.2); Carbon Dioxide 30 mmol/L (22-30); Chloride 102 mmol/L (98-107); Glucose 122 mg/dL (74-99); Potassium 4.1 mmol/L (3.5-5.1); Sodium 143 mmol/L (137-145); Total Protein 5.6 g/dL (6.3-8.2)
[2017-06-07] MEDS: PANTOPRAZOLE 40 MG TABLET PO SCH (08:43)
[2017-06-07] MEDS: BACLOFEN 10 MG TAB PO SCH (08:43)
[2017-06-07] MEDS: LISINOPRIL 5 MG TAB PO SCH (08:43)
[2017-06-07] MEDS: DULoxetine HCL 30 MG CAPSULE.DR PO SCH (08:43)
[2017-06-07] MEDS: LINAGLIPTIN 5 MG TABLET PO SCH (08:43)
[2017-06-07] MEDS: PREGABALIN 100 MG CAP PO SCH (08:43)
[2017-06-07] MEDS: traMADol 50 MG TAB PO SCH (08:47)
[2017-06-07] MEDS: INSULIN PUMP MEAL BOLUS 1 UNIT MISC MISCELLANE SCH ×2 (08:47→13:18)
[2017-06-07 08:52] VITALS: RESP 18
[2017-06-07] MEDS ORDERED: MODAFINIL 200 MG TAB PO SCH (09:00)
[2017-06-07 12:01] VITALS: BP 105/53; PULSE 87; TEMP 97.9
[2017-06-07 12:19] LABS: Glucose,Whole Blood 130 mg/dL (75-99)
--- NOTE | 2017-06-07 16:47 | DS ---
DISCHARGE SUMMARY FINAL DIAGNOSES: 1. Acute cholelithiasis and cholecystitis, status post laparoscopic cholecystectomy. 2. Negative stress test. 3. History of recent acute cerebrovascular accident with right hemiplegia, improved. 4. Chronic obstructive pulmonary disease. 5. History of cerebrovascular accident and transient ischemic attack. 6. Diabetes mellitus type 2. 7. Hypertension. 8. History of narcolepsy. DISCHARGE DISPOSITION: Patient is being discharged in stable condition with guarded prognosis. HISTORY OF PRESENT ILLNESS: This 71-year-old woman with a past history of multiple medical problems was admitted with epigastric pain. Myocardial infarction ruled out. Stress test was negative. The patient had features of cholelithiasis, cholecystitis. Patient underwent laparoscopic cholecystectomy by Dr. Jackson. The patient improved significantly. On exam, vital signs are stable. CARDIOVASCULAR: S1, S2 ABDOMEN: Soft, status post surgery. NERVOUS SYSTEM: No focal deficits. DISCHARGE ADVICE: 1. Diet is cardiac. 2. Activity limited until follow up. 3. Follow up with Dr. Caicedo in 2-3 days. 4. Follow up with Dr. Jackson as advised. 5. Follow with supervisory clerk as advised. MEDICATIONS: 1. Ventolin 2.5 q.i.d. p.r.n. 2. Lipitor 80 mg q.h.s. 3. Baclofen 10 mg p.o. b.i.d. 4. Vitamin D 3000 daily. 5. Klonopin 0.5 mg q.h.s. 6. Plavix 75 mg p.o. q.a.m. 7. Bentyl 10 mg q.i.d. 8. Cymbalta 30 mg q.a.m. 9. Lexapro 5 mg q.h.s. 10.Zetia 10 mg q.h.s. 11.Advair 1 puff b.i.d. 12.Hydrocodone p.r.n. 13.Insulin pump. 14.Lidocaine patch 5%. 15.Zestril 5 mg q.a.m. 16.Provigil 200 mg p.o. q.a.m. 17.Singulair 10 mg p.o. q.h.s. 18.Protonix 40 mg q.a.m. 19.Mirapex 1.5 mg q.h.s. 20.Lyrica 200 mg p.o. t.i.d. 21.Januvia 100 mg q.a.m. 22.Ultram 50 mg p.o. t.i.d. Once again the patient is being discharged in stable condition with guarded prognosis. MMODL / IJN: [id number] /
== END 2017-06-07 14:24 | disposition home or self-care (01) ==
LOC: EC 14:49 → 3OBS 16:44 → EC 16:55
PROVIDERS: ADMIT Hospitalist; ATTEND Hospitalist
DX: K80.12 Calculus of gallbladder with acute and chronic cholecystitis without obstruction (principal); I69.351 Hemiplegia and hemiparesis following cerebral infarction affecting right dominant side; R07.89 Other chest pain; J44.9 Chronic obstructive pulmonary disease, unspecified; E11.9 Type 2 diabetes mellitus without complications; I10 Essential (primary) hypertension; E78.5 Hyperlipidemia, unspecified; E87.6 Hypokalemia; G47.411 Narcolepsy with cataplexy; K58.9 Irritable bowel syndrome, unspecified; I25.10 Atherosclerotic heart disease of native coronary artery without angina pectoris; F41.9 Anxiety disorder, unspecified; F32.9 Major depressive disorder, single episode, unspecified; N39.3 Stress incontinence (female) (male); E87.8 Other disorders of electrolyte and fluid balance, not elsewhere classified; E66.9 Obesity, unspecified; Z68.33 Body mass index [BMI] 33.0-33.9, adult; Z87.01 Personal history of pneumonia (recurrent); Z79.02 Long term (current) use of antithrombotics/antiplatelets; Z79.4 Long term (current) use of insulin; Z79.51 Long term (current) use of inhaled steroids; Z79.899 Other long term (current) drug therapy; Z85.3 Personal history of malignant neoplasm of breast; Z96.41 Presence of insulin pump (external) (internal); Z82.49 Family history of ischemic heart disease and other diseases of the circulatory system; Z82.3 Family history of stroke; Z83.2 Family history of diseases of the blood and blood-forming organs and certain disorders involving the immune mechanism; Z80.9 Family history of malignant neoplasm, unspecified; Z83.3 Family history of diabetes mellitus
CPT/HCPCS: 47562; 99285 ×2; 36415; 94640 ×4; 93005; 93017; 93350; 88304; 83880; 80053 ×3; 83690; 83735; 84484 ×2; 85025 ×3; 85610; 85730; 83036; 71046; 76705; G0378 ×3; J2250; J1644; J2710; J3480; J2001; J3010; J0690; J0330; J2704; J1250

== ENCOUNTER → 2017-09-09 | Outpatient (CLI) | payer MEDICARE, OTHER | END | disposition home or self-care (01) | LOC: LABWHC1 11:02 | PROVIDERS: ATTEND Internal Medicine Endocrinology, Diabetes & Metabolism | DX: E11.65 Type 2 diabetes mellitus with hyperglycemia (principal) | CPT/HCPCS: 36415; 82024; 82533; 84443 ==

== ENCOUNTER → 2017-10-02 | Outpatient (CLI) | payer MEDICARE, OTHER ==
--- NOTE | 2017-10-07 11:27 | MM ---
Reason for exam: screening (asymptomatic). Last mammogram was performed 1 year and 8 months ago. History: Patient is postmenopausal and has history of high-risk lesion on a previous biopsy at age 63. Family history of premenopausal breast cancer in sister at age 37 and breast cancer in grandmother at age 56. Benign MG stereo VAD BX RT of the right breast, February 23, 2015. Benign right breast needle localzation of the right breast, June 07, 2009. High risk US right guided VAD of the right breast, May 31, 2009. Took estrogen for 10 years. Physical Findings: A clinical breast exam by your physician is recommended on an annual basis and results should be correlated with mammographic findings. MG 3D Screening Mammo W/Cad Bilateral CC and MLO view(s) were taken. Prior study comparison: February 14, 2016, bilateral MG screening mammo w CAD. September 20, 2015, right breast MG 3d diag mammo w/cad RT. The breast tissue is heterogeneously dense. This may lower the sensitivity of mammography. No suspicious abnormality. Right upper outer quadrant post biopsy change. ASSESSMENT: Benign, BI-RAD 2 RECOMMENDATION: Routine screening mammogram of both breasts in 1 year.
== END | disposition home or self-care (01) ==
LOC: RADMAMWWP 10:41
PROVIDERS: ATTEND Family Medicine
DX: Z12.31 Encounter for screening mammogram for malignant neoplasm of breast (principal)
CPT/HCPCS: 77063; 77067

== ENCOUNTER → 2017-11-27 | Outpatient (CLI) | payer MEDICARE, OTHER ==
--- NOTE | 2017-11-27 15:59 | CT ---
EXAMINATION TYPE: CT brain wo con DATE OF EXAM: 11/27/2017 COMPARISON: CT brain 05/06/2017 HISTORY: Headache, unsteady gait, leg weakness today. CT DLP: 963.5 mGycm Automated exposure control for dose reduction was used. Helical imaging through the brain. FINDINGS: There is no interval change. No hemorrhage or hydrocephalus. Periventricular white matter shows patch y low attenuation. Calvarium is intact. Paranasal sinuses and mastoid air cells are within normal simpson its, there may be a small polyp in the right maxillary sinus. Orbits show symmetric appearance. IMPRESSION: NO ACUTE ABNORMALITY. AGE-RELATED CHANGES OF ATROPHY AND PROBABLE CHRONIC SMALL VESSEL ISCHEMIA. CONS IDER BRAIN MRI INDICATED.
== END | disposition home or self-care (01) ==
LOC: RADXRMAIN 15:29
PROVIDERS: ATTEND Physician Assistant Medical
DX: G31.1 Senile degeneration of brain, not elsewhere classified (principal)
CPT/HCPCS: 70450

== ENCOUNTER → 2017-12-09 | Outpatient (CLI) | payer MEDICARE, OTHER ==
--- NOTE | 2017-12-09 13:40 | XR ---
EXAMINATION TYPE: XR Hip Complete LT DATE OF EXAM: 12/09/2017 COMPARISON: NONE HISTORY: Pain TECHNIQUE: 2 views submitted FINDINGS: There is no evidence of erosive change or acute fracture. Vascular calcifications are seen. Arthropathy of the left hip noted. IMPRESSION: 1. 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
== END | disposition home or self-care (01) ==
LOC: RADXRYALE 11:52
PROVIDERS: ATTEND Family Medicine
DX: M16.12 Unilateral primary osteoarthritis, left hip (principal)
CPT/HCPCS: 73502

== ENCOUNTER 2018-03-19 14:07 | Inpatient (IN) | payer MEDICARE, OTHER ==
[2018-03-19] MEDS ORDERED: ALBUTEROL NEBULIZED 2.5 MG/3 ML INHALATION STA (14:36)
[2018-03-19] MEDS ORDERED: SODIUM CHLORIDE 0.9% 500 ML 500 ML IV STA (14:36)
[2018-03-19] MEDS ORDERED: methylPREDNISolone SOD SUCCI 125 MG/2 ML VIAL IV STA (14:36)
--- NOTE | 2018-03-19 14:40 | ED ---
SOB HPI - General Chief Complaint: Shortness of Breath Stated Complaint: SOB Time Seen by Provider: 03/19/18 14:21 Source: patient, RN notes reviewed Mode of arrival: ambulatory Limitations: no limitations - History of Present Illness Initial Comments: 72-year-old female presents emergency Department chief complaint of shortness breath. Patient was seen at Dr. Oro's office today and sent over here for admission. Patient negative chest x-ray negative influenza swab. Patient states symptoms started on Saturday and she does have underlying COPD. Patient states that she is more short of breath and usual denies any chest pain, fever or chills. Denies any nausea vomiting diarrhea constipation. - Related Data Home Medications Medication Instructions Recorded Confirmed Atorvastatin [Lipitor] 80 mg PO HS 03/21/14 03/19/18 Baclofen 10 mg PO BID 03/21/14 03/19/18 Dicyclomine [Bentyl] 10 mg PO QID 03/21/14 03/19/18 Pantoprazole Sodium [Protonix] 40 mg PO DAILY 03/21/14 03/19/18 Pramipexole Di-HCl [Mirapex] 1.5 mg PO HS 03/21/14 03/19/18 Pregabalin [Lyrica] 200 mg PO TID 03/21/14 03/19/18 Lidocaine 5% Patch [Lidoderm 5% 1 patch TOPICAL DAILY 03/09/15 03/19/18 Patch] Montelukast [Singulair] 10 mg PO HS 04/11/15 03/19/18 INSULIN LISPRO (For Pump) [humaLOG See Protocol SQ-PUMP CONTINUOUS 04/18/17 (For Pump)] Clopidogrel Bisulfate [Plavix] 75 mg PO QAM 05/06/17 03/19/18 DULoxetine HCL [Cymbalta] 30 mg PO QAM 05/06/17 03/19/18 Escitalopram [Lexapro] 5 mg PO HS 05/06/17 03/19/18 Albuterol Nebulized [Ventolin 2.5 mg INHALATION RT-QID 06/05/17 03/19/18 Nebulized] Fluticasone/Salmeterol [Advair 1 puff INHALATION RT-BID 06/05/17 03/19/18 250-50 Diskus] Modafinil [Provigil] 200 mg PO QAM 06/05/17 03/19/18 Ergocalciferol (Vitamin D2) 50,000 unit PO Q7D 03/19/18 03/19/18 [Vitamin D2] Fenofibrate Nanocrystallized 145 mg PO DAILY 03/19/18 03/19/18 [Tricor] Furosemide [Lasix] 20 mg PO DAILY 03/19/18 03/19/18 Isosorbide Mononitrate ER [Imdur] 30 mg PO DAILY 03/19/18 03/19/18 Lisinopril-Hctz 10-12.5 mg 1 tab PO DAILY 03/19/18 03/19/18 [Zestoretic 10-12.5] Previous Rx's Medication Instructions Recorded clonazePAM [KlonoPIN] 0.5 mg PO HS PRN tab 04/23/17 Hydrocodone/Acetaminophen [[place] 1 tab PO Q6HR PRN #15 tablet 05/09/17 7.5-325] traMADol HCl [Ultram] 50 mg PO TID #15 tab 05/09/17 Allergies Allergy/AdvReac Type Severity Reaction Status Date / Time aspirin Allergy Swelling Verified 03/19/18 14:57 ibuprofen Allergy Swelling Verified 03/19/18 14:57 ipratropium bromide Allergy Swelling Verified 03/19/18 14:57 [From Atrovent] meperidine HCl [From Demerol] Allergy Rash/Hives Verified 03/19/18 14:57 hydromorphone HCl AdvReac Nausea & Verified 03/19/18 14:57 [From Dilaudid] Vomiting metformin AdvReac Unknown Verified 03/19/18 14:57 morphine AdvReac Vomiting Verified 03/19/18 14:57 trazodone AdvReac Weakness Verified 03/19/18 14:57 zolpidem tartrate AdvReac Hallucinati Verified 03/19/18 14:57 [From Ambien] ons MSG Allergy Rash/Hives Uncoded 03/19/18 14:13 Review of Systems ROS Statement: Those systems with pertinent positive or pertinent negative responses have been documented in the HPI. ROS Other: All systems not noted in ROS Statement are negative. Past Medical History Past Medical History: Asthma, Coronary Artery Disease (CAD), COPD, CVA/TIA, Diabetes Mellitus, Hyperlipidemia, Hypertension, Pneumonia Additional Past Medical History / Comment(s): rt side dominant. cva affected rt side pt state regained most strength to rt arm/hand but rt leg still weak. getting o/pt at home twice a week, uses walker/cane short distance and walker for long distance, had a fall on sat(stated has bump rt side of head, hit rt shoulder/hip. 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 Rt lumpectomy - neg, D&C. Past Anesthesia/Blood Transfusion Reactions: No Reported Reaction Past Psychological History: Anxiety, Depression Smoking Status: Never smoker Past Alcohol Use History: None Reported Past Drug Use History: None Reported - Past Family History Mother Family Medical History: Hyperlipidemia, Hypertension Additional Family Medical History / Comment(s): ANEMIA Father Family Medical History: Cancer, Diabetes Mellitus Additional Family Medical History / Comment(s): Stroke General Exam Limitations: no limitations General appearance: alert, in no apparent distress Head exam: Present: atraumatic, normocephalic, normal inspection Eye exam: Present: normal appearance, PERRL, EOMI. Absent: scleral icterus, conjunctival injection, periorbital swelling ENT exam: Present: normal exam, normal oropharynx, mucous membranes moist Neck exam: Present: normal inspection. Absent: tenderness, meningismus, lymphadenopathy Respiratory exam: Present: respiratory distress, wheezes. Absent: normal lung sounds bilaterally, rales, rhonchi, stridor Cardiovascular Exam: Present: normal rhythm, tachycardia, normal heart sounds. Absent: systolic murmur, diastolic murmur, rubs, gallop, clicks GI/Abdominal exam: Present: soft, normal bowel sounds. Absent: distended, tenderness, guarding, rebound, rigid Course Vital Signs 03/19/18 03/19/18 03/19/18 14:09 15:07 15:18 Temperature 98.5 F Pulse Rate 112 H 110 H 118 H Respiratory 25 H Rate Blood Pressure 140/71 O2 Sat by Pulse 96 Oximetry 03/19/18 03/19/18 15:37 15:45 Temperature Pulse Rate 130 H 128 H Respiratory 24 Rate Blood Pressure 154/80 O2 Sat by Pulse 95 Oximetry Medical Decision Making - Medical Decision Making 72-year-old female presented for shortness of breath. Patient has a mild COPD did have negative chest x-ray and negative influenza testing at Dr. Oro's office. Patient was sent over for admission she remains to be tachypnea, mild respiratory distress. She'll be admitted for IV steroids, repeat breathing treatments and further evaluation. - Lab Data Result diagrams: 03/19/18 14:41 03/19/18 14:41 Lab Results 03/19/18 03/19/18 03/19/18 Range/Units 14:41 14:41 14:41 WBC 17.6 H (3.8-10.6) k/uL RBC 5.28 (3.80-5.40) m/uL Hgb 15.5 (11.4-16.0) gm/dL Hct 46.2 H (34.0-46.0) % MCV 87.5 (80.0-100.0) fL MCH 29.4 (25.0-35.0) pg MCHC 33.5 (31.0-37.0) g/dL RDW 13.7 (11.5-15.5) % Plt Count 236 (150-450) k/uL Neutrophils % 91 % Lymphocytes % 3 % Monocytes % 4 % Eosinophils % 1 % Basophils % 0 % Neutrophils # 16.0 H (1.3-7.7) k/uL Lymphocytes # 0.6 L (1.0-4.8) k/uL Monocytes # 0.7 (0-1.0) k/uL Eosinophils # 0.2 (0-0.7) k/uL Basophils # 0.1 (0-0.2) k/uL PT (9.0-12.0) sec INR (<1.2) APTT (22.0-30.0) sec Sample Site ABG pH (7.35-7.45) ABG pCO2 (35-45) mmHg ABG pO2 (83-108) mmHg ABG HCO3 (21-25) mmol/L ABG Total CO2 (19-24) mmol/L ABG O2 Saturation (94-97) % ABG Base Excess mmol/L Gordon Test FiO2 % Sodium 140 (137-145) mmol/L Potassium 4.2 (3.5-5.1) mmol/L Chloride 107 (98-107) mmol/L Carbon Dioxide 21 L (22-30) mmol/L Anion Gap 12 mmol/L BUN 12 (7-17) mg/dL Creatinine 0.67 (0.52-1.04) mg/dL Est GFR (CKD-EPI)AfAm >90 (>60 ml/min/1.73 sqM) Est GFR (CKD-EPI)NonAf 90 (>60 ml/min/1.73 sqM) Glucose 256 H (74-99) mg/dL Calcium 10.3 H (8.4-10.2) mg/dL Magnesium 1.9 (1.6-2.3) mg/dL Total Bilirubin 1.1 (0.2-1.3) mg/dL AST 27 (14-36) U/L ALT 38 (9-52) U/L Alkaline Phosphatase 95 (38-126) U/L Total Creatine Kinase 62 (30-135) U/L CK-MB (CK-2) 0.3 (0.0-2.4) ng/mL CK-MB (CK-2) Rel Index 0.5 Troponin I <0.012 (0.000-0.034) ng/mL Total Protein 7.6 (6.3-8.2) g/dL Albumin 4.9 (3.5-5.0) g/dL 03/19/18 03/19/18 Range/Units 14:41 17:32 WBC (3.8-10.6) k/uL RBC (3.80-5.40) m/uL Hgb (11.4-16.0) gm/dL Hct (34.0-46.0) % MCV (80.0-100.0) fL MCH (25.0-35.0) pg MCHC (31.0-37.0) g/dL RDW (11.5-15.5) % Plt Count (150-450) k/uL Neutrophils % % Lymphocytes % % Monocytes % % Eosinophils % % Basophils % % Neutrophils # (1.3-7.7) k/uL Lymphocytes # (1.0-4.8) k/uL Monocytes # (0-1.0) k/uL Eosinophils # (0-0.7) k/uL Basophils # (0-0.2) k/uL PT 9.7 (9.0-12.0) sec INR 0.9 (<1.2) APTT 23.6 (22.0-30.0) sec Sample Site RAD ABG pH 7.39 (7.35-7.45) ABG pCO2 33 L (35-45) mmHg ABG pO2 119 H (83-108) mmHg ABG HCO3 20 L (21-25) mmol/L ABG Total CO2 21 (19-24) mmol/L ABG O2 Saturation 98.4 H (94-97) % ABG Base Excess -5.1 mmol/L Gordon Test Yes FiO2 28 % Sodium (137-145) mmol/L Potassium (3.5-5.1) mmol/L Chloride (98-107) mmol/L Carbon Dioxide (22-30) mmol/L Anion Gap mmol/L BUN (7-17) mg/dL Creatinine (0.52-1.04) mg/dL Est GFR (CKD-EPI)AfAm (>60 ml/min/1.73 sqM) Est GFR (CKD-EPI)NonAf (>60 ml/min/1.73 sqM) Glucose (74-99) mg/dL Calcium (8.4-10.2) mg/dL Magnesium (1.6-2.3) mg/dL Total Bilirubin (0.2-1.3) mg/dL AST (14-36) U/L ALT (9-52) U/L Alkaline Phosphatase (38-126) U/L Total Creatine Kinase (30-135) U/L CK-MB (CK-2) (0.0-2.4) ng/mL CK-MB (CK-2) Rel Index Troponin I (0.000-0.034) ng/mL Total Protein (6.3-8.2) g/dL Albumin (3.5-5.0) g/dL Disposition Clinical Impression: Respiratory distress, Acute exacerbation of COPD with asthma Disposition: ADMITTED IP TO THIS HOSP Condition: Fair Referrals: Chris Caicedo DO [Primary Care Provider] - 1-2 days
[2018-03-19 15:16] LABS: Basophils # (A) 0.1 k/uL (0-0.2); Basophils % (A) 0 %; Eosinophils # (A) 0.2 k/uL (0-0.7); Eosinophils % (A) 1 %; HCT 46.2 % (34.0-46.0); HGB 15.5 gm/dL (11.4-16.0); Lymphocytes # (A) 0.6 k/uL (1.0-4.8); Lymphocytes % (A) 3 %; MCH 29.4 pg (25.0-35.0); MCHC 33.5 g/dL (31.0-37.0); MCV 87.5 fL (80.0-100.0); Mean Platelet Volume 7.9; Monocytes # (A) 0.7 k/uL (0-1.0); Monocytes % (A) 4 %; Neutrophils % (A) 91 %; Platelet Count 236 k/uL (150-450); RBC 5.28 m/uL (3.80-5.40); RDW 13.7 % (11.5-15.5); WBC 17.6 k/uL (3.8-10.6)
[2018-03-19 15:24] LABS: INR 0.9 (<1.2); Partial Thromboplastin Time 23.6 sec (22.0-30.0); Prothrombin Time 9.7 sec (9.0-12.0)
[2018-03-19 15:34] LABS: ALT 38 U/L (9-52); AST 27 U/L (14-36); Albumin 4.9 g/dL (3.5-5.0); Alkaline Phosphatase 95 U/L (38-126); Anion Gap 12 mmol/L; Blood Urea Nitrogen 12 mg/dL (7-17); Calcium 10.3 mg/dL (8.4-10.2); Carbon Dioxide 21 mmol/L (22-30); Chloride 107 mmol/L (98-107); Glucose 256 mg/dL (74-99); Magnesium 1.9 mg/dL (1.6-2.3); Potassium 4.2 mmol/L (3.5-5.1); Sodium 140 mmol/L (137-145); Total Bilirubin 1.1 mg/dL (0.2-1.3); Total Protein 7.6 g/dL (6.3-8.2)
[2018-03-19 15:36] LABS: Creatine Kinase 62 U/L (30-135)
[2018-03-19] MEDS ORDERED: LORazepam 2 MG/ML INJ IV STA (15:40)
[2018-03-19 15:49] LABS: Creatine Kinase MB 0.3 ng/mL (0.0-2.4); Troponin I <0.012 ng/mL (0.000-0.034)
[2018-03-19 17:35] LABS: ABG Base Excess -5.1 mmol/L; ABG HCO3 20 mmol/L (21-25); ABG Oxygen Saturation 98.4 % (94-97); ABG PCO2 33 mmHg (35-45); ABG PH 7.39 (7.35-7.45); ABG PO2 119 mmHg (83-108); ABG TCO2 21 mmol/L (19-24)
[2018-03-19] MEDS: methylPREDNISolone SOD SUCCI 125 MG/2 ML VIAL IV SCH ×2 (19:26→23:01)
[2018-03-19] MEDS ORDERED: ALBUTEROL NEBULIZED 2.5 MG/3 ML INHALATION PRN (20:21)
[2018-03-19] MEDS: ALBUTEROL NEBULIZED 2.5 MG/3 ML INHALATION SCH (20:57)
[2018-03-19] MEDS ORDERED: INSULIN ASPART 100 UNIT/ML 1 ML 10 ML VIAL SQ ONE (20:58)
[2018-03-19 21:01] LABS: Glucose,Whole Blood 423 mg/dL (75-99)
[2018-03-19] MEDS ORDERED: INSULIN DETEMIR 100 UNIT/ML 10 ML VIAL SQ SCH (21:15)
[2018-03-19] MEDS ORDERED: traMADol 50 MG TAB PO SCH (22:00)
[2018-03-19 22:19] LABS: Glucose,Whole Blood 404 mg/dL (75-99)
[2018-03-19] MEDS: clonazePAM 0.5 MG TAB PO PRN (22:59)
[2018-03-19] MEDS: traMADol 50 MG TAB PO PRN (23:00)
[2018-03-19] MEDS: ATORVASTATIN 80 MG TAB PO SCH (23:00)
[2018-03-20 03:20] LABS: Glucose,Whole Blood 286 mg/dL (75-99)
[2018-03-20 06:04] LABS: Glucose,Whole Blood 308 mg/dL (75-99)
[2018-03-20] MEDS: methylPREDNISolone SOD SUCCI 125 MG/2 ML VIAL IV SCH ×4 (06:15→23:57)
[2018-03-20] MEDS: INSULIN ASPART 100 UNIT/ML 1 ML 10 ML VIAL SQ SCH ×5 (06:15→21:35)
[2018-03-20] MEDS: ALBUTEROL NEBULIZED 2.5 MG/3 ML INHALATION SCH ×4 (07:58→21:25)
[2018-03-20] MEDS: FUROSEMIDE 20 MG TAB PO SCH (08:21)
[2018-03-20] MEDS: LISINOPRIL-HCTZ 10-12.5 MG 1 EACH TAB PO SCH (08:21)
--- NOTE | 2018-03-20 09:55 | P.CRDCN ---
History of Present Illness Consult date: 03/20/18 Requesting physician: Oksana Rodriguez Consult reason: shortness of breath Chief complaint: Shortness of breath History of present illness: This is a pleasant 72-year-old female who follows with Dr. Albert in the office. She has a known history of COPD, hypertension, hyperlipidemia, CVA with right-sided weakness, diabetes, anxiety, she presents to the hospital on this occasion with symptoms of 2-3 duration of progressively worsening shortness of breath. Patient also states that she's been having diarrhea for the past 3 days or so. Chest x-ray performed on admission which is yet pending , EKG shows sinus tachycardia with no acute changes. Blood pressure 128/60 with a heart rate in the 90s to low 100s, 94% on 2 L of oxygen. White blood cell count 17.6, hemoglobin 15.5, platelet count 236. Sodium 140, potassium 4.2 , BUN 12, creatinine 0.6. Glucose on arrival 404. Magnesium 1.9. Troponin 0.012. Stool for C. diff negative. Blood gases, pH 7.3, pCO2 33, pO2 119, HCO3 20. At the time of my examination this morning, patient is still quite short of breath, significantly wheezy throughout. Past Medical History Past Medical History: Asthma, Coronary Artery Disease (CAD), COPD, CVA/TIA, Diabetes Mellitus, Hyperlipidemia, Hypertension, Pneumonia Additional Past Medical History / Comment(s): rt side dominant. cva affected rt side pt state regained most strength to rt arm/hand but rt leg still weak. , uses walker/cane short distance and walker for long distance, r/hip. 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 Rt lumpectomy - neg, D&C.colonosocpy/egd Past Anesthesia/Blood Transfusion Reactions: No Reported Reaction Smoking Status: Never smoker - Past Family History Mother Family Medical History: Hyperlipidemia, Hypertension Additional Family Medical History / Comment(s): ANEMIA Father Family Medical History: Cancer, Diabetes Mellitus Additional Family Medical History / Comment(s): Stroke Medications and Allergies Home Medications Medication Instructions Recorded Confirmed Type Atorvastatin [Lipitor] 80 mg PO HS 03/21/14 03/19/18 History Baclofen 10 mg PO BID 03/21/14 03/19/18 History Dicyclomine [Bentyl] 10 mg PO QID 03/21/14 03/19/18 History Pantoprazole Sodium [Protonix] 40 mg PO DAILY 03/21/14 03/19/18 History Pramipexole Di-HCl [Mirapex] 1.5 mg PO HS 03/21/14 03/19/18 History Pregabalin [Lyrica] 200 mg PO TID 03/21/14 03/19/18 History Lidocaine 5% Patch [Lidoderm 5% 1 patch TOPICAL DAILY 03/09/15 03/19/18 History Patch] Montelukast [Singulair] 10 mg PO HS 04/11/15 03/19/18 History INSULIN LISPRO (For Pump) [humaLOG See Protocol SQ-PUMP CONTINUOUS 04/18/17 History (For Pump)] clonazePAM [KlonoPIN] 0.5 mg PO HS PRN tab 04/23/17 03/19/18 Rx Clopidogrel Bisulfate [Plavix] 75 mg PO QAM 05/06/17 03/19/18 History DULoxetine HCL [Cymbalta] 30 mg PO QAM 05/06/17 03/19/18 History Escitalopram [Lexapro] 5 mg PO HS 05/06/17 03/19/18 History Hydrocodone/Acetaminophen [[place] 1 tab PO Q6HR PRN #15 tablet 05/09/17 03/19/18 Rx 7.5-325] traMADol HCl [Ultram] 50 mg PO TID #15 tab 05/09/17 03/19/18 Rx Albuterol Nebulized [Ventolin 2.5 mg INHALATION RT-QID 06/05/17 03/19/18 History Nebulized] Fluticasone/Salmeterol [Advair 1 puff INHALATION RT-BID 06/05/17 03/19/18 History 250-50 Diskus] Modafinil [Provigil] 200 mg PO QAM 06/05/17 03/19/18 History Ergocalciferol (Vitamin D2) 50,000 unit PO Q7D 03/19/18 03/19/18 History [Vitamin D2] Fenofibrate Nanocrystallized 145 mg PO DAILY 03/19/18 03/19/18 History [Tricor] Furosemide [Lasix] 20 mg PO DAILY 03/19/18 03/19/18 History Isosorbide Mononitrate ER [Imdur] 30 mg PO DAILY 03/19/18 03/19/18 History Lisinopril-Hctz 10-12.5 mg 1 tab PO DAILY 03/19/18 03/19/18 History [Zestoretic 10-12.5] Allergies Allergy/AdvReac Type Severity Reaction Status Date / Time aspirin Allergy Swelling Verified 03/19/18 14:57 ibuprofen Allergy Swelling Verified 03/19/18 14:57 ipratropium bromide Allergy Swelling Verified 03/19/18 14:57 [From Atrovent] meperidine HCl [From Demerol] Allergy Rash/Hives Verified 03/19/18 14:57 hydromorphone HCl AdvReac Nausea & Verified 03/19/18 14:57 [From Dilaudid] Vomiting metformin AdvReac Unknown Verified 03/19/18 14:57 morphine AdvReac Vomiting Verified 03/19/18 14:57 trazodone AdvReac Weakness Verified 03/19/18 14:57 zolpidem tartrate AdvReac Hallucinati Verified 03/19/18 14:57 [From Ambien] ons MSG Allergy Rash/Hives Uncoded 03/19/18 14:13 Physical Exam Vitals: Vital Signs Temp Pulse Pulse Resp BP BP Pulse Ox 03/20/18 08:13 108 H 03/20/18 08:00 98.2 F 92 91 20 129/63 94 L 03/20/18 04:00 98.2 F 78 20 129/64 95 03/20/18 00:00 98.2 F 100 20 124/57 95 03/19/18 21:06 112 H 03/19/18 20:57 100 03/19/18 19:24 109 H 18 143/79 97 03/19/18 15:45 128 H 24 154/80 95 03/19/18 15:37 130 H 03/19/18 15:18 118 H 03/19/18 15:07 110 H 03/19/18 14:09 98.5 F 112 H 25 H 140/71 96 Intake and Output 03/19/18 03/20/18 03/20/18 22:59 06:59 14:59 Intake Total 200 750 120 Balance 200 750 120 Intake: Oral 200 750 120 Other: Voiding Method Toilet Toilet # Voids 3 # Bowel Movements 2 Weight 70.9 kg PHYSICAL EXAMINATION: GENERAL: 72-year-old female in no acute distress at the time of my examination HEENT: Head is atraumatic, normocephalic. Pupils equal, round. Sclera anicteric. Conjunctiva are clear. Mucous membranes of the mouth are moist. Neck is supple. There is no elevated jugular venous pressure. No carotid bruit is heard. HEART EXAMINATION: Heart S1, S2 normal. No murmur or gallop heard. CHEST EXAMINATION: Lungs reveal decreased air exchange throughout with scattered coarse wheezing throughout. ABDOMEN: Soft, nontender. Bowel sounds are heard. No organomegaly noted. EXTREMITIES: 2+ peripheral pulses with no evidence of peripheral edema and no calf tenderness noted. NEUROLOGIC patient is awake, alert and oriented 3 . . Results 03/19/18 14:41 03/19/18 14:41 Cardiac Enzymes 03/19/18 03/19/18 Range/Units 14:41 14:41 AST 27 (14-36) U/L CK-MB (CK-2) 0.3 (0.0-2.4) ng/mL Troponin I <0.012 (0.000-0.034) ng/mL Coagulation 03/19/18 Range/Units 14:41 PT 9.7 (9.0-12.0) sec APTT 23.6 (22.0-30.0) sec CBC 03/19/18 Range/Units 14:41 WBC 17.6 H (3.8-10.6) k/uL RBC 5.28 (3.80-5.40) m/uL Hgb 15.5 (11.4-16.0) gm/dL Hct 46.2 H (34.0-46.0) % Plt Count 236 (150-450) k/uL Comprehensive Metabolic Panel 03/19/18 Range/Units 14:41 Sodium 140 (137-145) mmol/L Potassium 4.2 (3.5-5.1) mmol/L Chloride 107 (98-107) mmol/L Carbon Dioxide 21 L (22-30) mmol/L BUN 12 (7-17) mg/dL Creatinine 0.67 (0.52-1.04) mg/dL Glucose 256 H (74-99) mg/dL Calcium 10.3 H (8.4-10.2) mg/dL AST 27 (14-36) U/L ALT 38 (9-52) U/L Alkaline Phosphatase 95 (38-126) U/L Total Protein 7.6 (6.3-8.2) g/dL Albumin 4.9 (3.5-5.0) g/dL Current Medications Generic Name Dose Route Start Last Admin Trade Name Freq PRN Reason Stop Dose Admin Hydrocodone Bitart/Acetaminophen 1 each 03/19/18 16:48 [place] 7.5-325 PO Q6HR PRN Pain Albuterol Sulfate 2.5 mg 03/19/18 20:00 03/20/18 07:58 Ventolin Nebulized INHALATION 2.5 mg RT-QID LEO Administration Albuterol Sulfate 2.5 mg 03/19/18 20:21 Ventolin Nebulized INHALATION RT-Q2H PRN Shortness Of Breath Or Wheezing Atorvastatin Calcium 80 mg 03/19/18 22:00 03/19/18 23:00 Lipitor PO 80 mg HS LEO Administration Clonazepam 0.5 mg 03/19/18 16:48 03/19/18 22:59 Klonopin PO 0.5 mg HS PRN Administration Insomnia Furosemide 20 mg 03/20/18 09:00 03/20/18 08:21 Lasix PO 20 mg DAILY LEO Administration Lisinopril/HCTZ 1 each 03/20/18 09:00 03/20/18 08:21 Zestoretic 10-12.5 PO 1 each DAILY LEO Administration Insulin Aspart 0 unit 03/20/18 07:30 03/20/18 06:15 Novolog SQ 8 unit ACHS LEO Administration Protocol Insulin Detemir 20 unit 03/19/18 21:15 03/19/18 21:37 Levemir SQ 20 unit HS LEO Administration Methylprednisolone Sodium Succinate 60 mg 03/19/18 19:00 03/20/18 06:15 Solu-Medrol IV 60 mg Q6HR LEO Administration Tramadol HCl 50 mg 03/19/18 21:32 03/19/18 23:00 Ultram PO 03/23/18 23:59 50 mg QID PRN Administration Headache Intake and Output 03/19/18 03/20/18 03/20/18 22:59 06:59 14:59 Intake Total 200 750 120 Balance 200 750 120 Intake: Oral 200 750 120 Other: Voiding Method Toilet Toilet # Voids 3 # Bowel Movements 2 Weight 70.9 kg 03/19/18 14:41 03/19/18 14:41 EKG Interpretations (text) EKG shows sinus tachycardia with no acute changes. Assessment and Plan Plan: Assessment and plan #1 symptoms of progressively worsening shortness of breath, appears to be exacerbation of COPD. Influenza swab negative at [employer] [facility] office prior to admission. No clear-cut evidence of congestive cardiac failure. #2 uncontrolled diabetes #3 hypertension #4 hyperlipidemia #5 COPD #6 prior CVA #7 diarrhea stools, C. diff negative Plan We will obtain an echocardiogram with Doppler study as well as a BNP level. It does not appear that the patient is in any congestive heart failure this time. Continue current medications. DNP note has been reviewed, I agree with a documented findings and plan of care. Patient was seen and examined.
[2018-03-20 11:37] LABS: Glucose,Whole Blood 403 mg/dL (75-99)
--- NOTE | 2018-03-20 11:59 | ECHOF ---
Referral Reason:chf MEASUREMENTS -------- HEIGHT: 127.0 cm WEIGHT: 70.8 kg BP: IVSd: 1.2 cm (0.6 - 1.1) LVIDd: 3.4 cm (3.9 - 5.3) LVPWd: 1.3 cm (0.6 - 1.1) IVSs: 1.3 cm LVIDs: 3.2 cm LVPWs: 0.9 cm LA Diam: 3.5 cm (2.7 - 3.8) RVIDd: 2.6 cm (< 3.3) LAESV Index (A-L): 16.41 ml/m Ao Diam: 2.6 cm (2.0 - 3.7) LA Diam: 3.4 cm (2.7 - 3.8) AV Cusp: 1.5 cm (1.5 - 2.6) EPSS: 0.2 cm MV E Leonardo: 0.68 m/s MV DecT: 260 ms MV A Leonardo: 1.19 m/s MV E/A Ratio: 0.57 RAP: 5.00 mmHg RVSP: 26.04 mmHg MV EF SLOPE: 64.48 mm/s (70 - 150) MV EXCURSION: 15.62 mm (> 18.000) FINDINGS -------- Sinus rhythm. This was a technically adequate study. The left ventricular size is normal. There is mild concentric left ventricular hypertrophy. Overa ll left ventricular systolic function is normal with, an EF between 55 - 60 %. The right ventricle is normal in size. The left atrial size is normal. Normal LA size by volume 22+/-6 ml/m2. The right atrial size is normal. There is mild aortic valve sclerosis. There is no evidence of aortic regurgitation. Mild mitral annular calcification present. Mild mitral regurgitation is present. Mild tricuspid regurgitation present. There is no evidence of pulmonary hypertension. The right v entricular systolic pressure, as measured by Doppler, is 26.04mmHg. Trace/mild (physiologic) pulmonic regurgitation. The aortic root size is normal. Echo free space represents a pericardial fat pad. CONCLUSIONS -------- 1. The left ventricular size is normal. 2. There is mild concentric left ventricular hypertrophy. 3. Overall left ventricular systolic function is normal with, an EF between 55 - 60 %. 4. The right ventricle is normal in size. 5. The left atrial size is normal. 6. The right atrial size is normal. 7. There is mild aortic valve sclerosis. 8. Mild mitral annular calcification present. 9. Mild mitral regurgitation is present. 10. Mild tricuspid regurgitation present. 11. There is no evidence of pulmonary hypertension. 12. The right ventricular systolic pressure, as measured by Doppler, is 26.04mmHg. 13. Trace/mild (physiologic) pulmonic regurgitation. 14. The aortic root size is normal. 15. Echo free space represents a pericardial fat pad. NEUROLOGY PHYSICIAN ASSISTANT: Yancy Monaco RDCS
[2018-03-20] MEDS: traMADol 50 MG TAB PO PRN (13:47)
--- NOTE | 2018-03-20 14:44 | P.HPIM ---
History of Present Illness Patient is pleasant 72-year-old female came in after she was transferred from pulmonary clinic, patient was noted to have COPD exacerbation patient has significant improvement since yesterday patient was started on systemic steroids inhalational treatments chest x-ray did not show any pneumonic process patient has worsening shortness was 2-3 days patient denied any orthopnea or paroxysmal nocturnal dyspnea patient's BNP is only 150. Echocardiogram showed normal ejection fraction patient quit smoking years ago and patient does have significant expiratory wheezing on exam patient is comparing of cough with the whitish sputum production. Review of Systems REVIEW OF SYSTEMS: CONSTITUTIONAL: No fever, no malaise, no fatigue. HEENT: No recent visual problems or hearing problems. Denied any sore throat. CARDIOVASCULAR: No chest pain, orthopnea, PND, no palpitations, no syncope. PULMONARY:no hemoptysis. GASTROINTESTINAL: No diarrhea, no nausea, no vomiting, no abdominal pain. NEUROLOGICAL: No headaches, no weakness, no numbness. HEMATOLOGICAL: Denies any bleeding or petechiae. GENITOURINARY: Denies any burning micturition, frequency, or urgency. MUSCULOSKELETAL/RHEUMATOLOGICAL: Denies any joint pain, swelling, or any muscle pain. ENDOCRINE: Denies any polyuria or polydipsia. The rest of the 14-point review of systems is negative. Past Medical History Past Medical History: Asthma, Coronary Artery Disease (CAD), COPD, CVA/TIA, Diabetes Mellitus, Hyperlipidemia, Hypertension, Pneumonia Additional Past Medical History / Comment(s): rt side dominant. cva affected rt side pt state regained most strength to rt arm/hand but rt leg still weak. , uses walker/cane short distance and walker for long distance, r/hip. 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 Rt lumpectomy - neg, D&C.colonosocpy/egd Past Anesthesia/Blood Transfusion Reactions: No Reported Reaction Smoking Status: Never smoker - Past Family History Mother Family Medical History: Hyperlipidemia, Hypertension Additional Family Medical History / Comment(s): ANEMIA Father Family Medical History: Cancer, Diabetes Mellitus Additional Family Medical History / Comment(s): Stroke Medications and Allergies Home Medications Medication Instructions Recorded Confirmed Type Atorvastatin [Lipitor] 80 mg PO HS 03/21/14 03/19/18 History Baclofen 10 mg PO BID 03/21/14 03/19/18 History Dicyclomine [Bentyl] 10 mg PO QID 03/21/14 03/19/18 History Pantoprazole Sodium [Protonix] 40 mg PO DAILY 03/21/14 03/19/18 History Pramipexole Di-HCl [Mirapex] 1.5 mg PO HS 03/21/14 03/19/18 History Pregabalin [Lyrica] 200 mg PO TID 03/21/14 03/19/18 History Lidocaine 5% Patch [Lidoderm 5% 1 patch TOPICAL DAILY 03/09/15 03/19/18 History Patch] Montelukast [Singulair] 10 mg PO HS 04/11/15 03/19/18 History INSULIN LISPRO (For Pump) [humaLOG See Protocol SQ-PUMP CONTINUOUS 04/18/17 History (For Pump)] clonazePAM [KlonoPIN] 0.5 mg PO HS PRN tab 04/23/17 03/19/18 Rx Clopidogrel Bisulfate [Plavix] 75 mg PO QAM 05/06/17 03/19/18 History DULoxetine HCL [Cymbalta] 30 mg PO QAM 05/06/17 03/19/18 History Escitalopram [Lexapro] 5 mg PO HS 05/06/17 03/19/18 History Hydrocodone/Acetaminophen [[place] 1 tab PO Q6HR PRN #15 tablet 05/09/17 03/19/18 Rx 7.5-325] traMADol HCl [Ultram] 50 mg PO TID #15 tab 05/09/17 03/19/18 Rx Albuterol Nebulized [Ventolin 2.5 mg INHALATION RT-QID 06/05/17 03/19/18 History Nebulized] Fluticasone/Salmeterol [Advair 1 puff INHALATION RT-BID 06/05/17 03/19/18 History 250-50 Diskus] Modafinil [Provigil] 200 mg PO QAM 06/05/17 03/19/18 History Ergocalciferol (Vitamin D2) 50,000 unit PO Q7D 03/19/18 03/19/18 History [Vitamin D2] Fenofibrate Nanocrystallized 145 mg PO DAILY 03/19/18 03/19/18 History [Tricor] Furosemide [Lasix] 20 mg PO DAILY 03/19/18 03/19/18 History Isosorbide Mononitrate ER [Imdur] 30 mg PO DAILY 03/19/18 03/19/18 History Lisinopril-Hctz 10-12.5 mg 1 tab PO DAILY 03/19/18 03/19/18 History [Zestoretic 10-12.5] Allergies Allergy/AdvReac Type Severity Reaction Status Date / Time aspirin Allergy Swelling Verified 03/19/18 14:57 ibuprofen Allergy Swelling Verified 03/19/18 14:57 ipratropium bromide Allergy Swelling Verified 03/19/18 14:57 [From Atrovent] meperidine HCl [From Demerol] Allergy Rash/Hives Verified 03/19/18 14:57 hydromorphone HCl AdvReac Nausea & Verified 03/19/18 14:57 [From Dilaudid] Vomiting metformin AdvReac Unknown Verified 03/19/18 14:57 morphine AdvReac Vomiting Verified 03/19/18 14:57 trazodone AdvReac Weakness Verified 03/19/18 14:57 zolpidem tartrate AdvReac Hallucinati Verified 03/19/18 14:57 [From Ambien] ons MSG Allergy Rash/Hives Uncoded 03/19/18 14:13 Physical Exam Vitals: Vital Signs Temp Pulse Pulse Resp BP BP Pulse Ox 03/20/18 11:40 97.9 F 94 20 139/60 97 03/20/18 11:35 104 H 03/20/18 11:26 96 22 03/20/18 08:13 108 H 03/20/18 08:00 98.2 F 92 91 20 129/63 94 L 03/20/18 04:00 98.2 F 78 20 129/64 95 03/20/18 00:00 98.2 F 100 20 124/57 95 03/19/18 21:06 112 H 03/19/18 20:57 100 03/19/18 19:24 109 H 18 143/79 97 03/19/18 15:45 128 H 24 154/80 95 03/19/18 15:37 130 H 03/19/18 15:18 118 H 03/19/18 15:07 110 H Intake and Output 03/19/18 03/20/18 03/20/18 22:59 06:59 14:59 Intake Total 200 750 480 Balance 200 750 480 Intake: Oral 200 750 480 Other: Voiding Method Toilet Toilet # Voids 3 2 # Bowel Movements 2 2 Weight 70.9 kg PHYSICAL EXAMINATION: GENERAL: The patient is alert and oriented x3, not in any acute distress. Well developed, well nourished. HEENT: Pupils are round and equally reacting to light. EOMI. No scleral icterus. No conjunctival pallor. Normocephalic, atraumatic. No pharyngeal erythema. No thyromegaly. CARDIOVASCULAR: S1 and S2 present. No murmurs, rubs, or gallops. PULMONARY: Decreased air entry with expiratory wheezing on exam ABDOMEN: Soft, nontender, nondistended, normoactive bowel sounds. No palpable organomegaly. MUSCULOSKELETAL: No joint swelling or deformity. EXTREMITIES: No cyanosis, clubbing, or pedal edema. NEUROLOGICAL: Gross neurological examination did not reveal any focal deficits. SKIN: No rashes. Results CBC & Chem 7: 03/19/18 14:41 03/19/18 14:41 Labs: Abnormal Lab Results - Last 24 Hours (Table) 03/19/18 03/19/18 03/19/18 Range/Units 14:41 14:41 17:32 WBC 17.6 H (3.8-10.6) k/uL Hct 46.2 H (34.0-46.0) % Neutrophils # 16.0 H (1.3-7.7) k/uL Lymphocytes # 0.6 L (1.0-4.8) k/uL ABG pCO2 33 L (35-45) mmHg ABG pO2 119 H (83-108) mmHg ABG HCO3 20 L (21-25) mmol/L ABG O2 Saturation 98.4 H (94-97) % Carbon Dioxide 21 L (22-30) mmol/L Glucose 256 H (74-99) mg/dL POC Glucose (mg/dL) (75-99) mg/dL Calcium 10.3 H (8.4-10.2) mg/dL 03/19/18 03/19/18 03/20/18 Range/Units 20:54 22:17 03:18 WBC (3.8-10.6) k/uL Hct (34.0-46.0) % Neutrophils # (1.3-7.7) k/uL Lymphocytes # (1.0-4.8) k/uL ABG pCO2 (35-45) mmHg ABG pO2 (83-108) mmHg ABG HCO3 (21-25) mmol/L ABG O2 Saturation (94-97) % Carbon Dioxide (22-30) mmol/L Glucose (74-99) mg/dL POC Glucose (mg/dL) 423 H 404 H 286 H (75-99) mg/dL Calcium (8.4-10.2) mg/dL 03/20/18 03/20/18 Range/Units 06:03 11:36 WBC (3.8-10.6) k/uL Hct (34.0-46.0) % Neutrophils # (1.3-7.7) k/uL Lymphocytes # (1.0-4.8) k/uL ABG pCO2 (35-45) mmHg ABG pO2 (83-108) mmHg ABG HCO3 (21-25) mmol/L ABG O2 Saturation (94-97) % Carbon Dioxide (22-30) mmol/L Glucose (74-99) mg/dL POC Glucose (mg/dL) 308 H 403 H (75-99) mg/dL Calcium (8.4-10.2) mg/dL Thrombosis Risk Factor Assmnt - Choose All That Apply Any of the Below Risk Factors Present?: Yes Each Factor Represents 1 point: Abnormal pulmonary function (COPD), Obesity ( BMI >25) Other Risk Factors: Yes Each Risk Factor Represents 2 Points: Age 61-74 years Other congenital or acquired thrombophilia - If yes, enter type in comment: No Thrombosis Risk Factor Assessment Total Risk Factor Score: 4 Thrombosis Risk Factor Assessment Level: Moderate Risk Assessment and Plan Plan: Acute hypercapnic respiratory failure: Secondary to COPD exacerbation patient will be continued on systemic steroids inhalational treatments. -Type 2 diabetes mellitus uncontrolled elevated blood sugars due to systemic steroids covered with sliding scale patient will also be started on long-acting insulin patient normally has an insulin pump and she cannot of medication for the pump -Coronary artery disease -hypertension -Hyperlipidemia Coronary artery disease -Anxiety -Depression
[2018-03-20 14:46] LABS: Hemoglobin A1C 7.4 % (4.0-6.0)
[2018-03-20 16:45] LABS: Glucose,Whole Blood 394 mg/dL (75-99)
--- NOTE | 2018-03-20 18:14 | CONS ---
CONSULTATION PULMONARY/CRITICAL CARE CONSULTATION: DATE OF SERVICE: 03/20/2018 This is a 72-year-old female who was seen by my partner in the office yesterday. She came in with complaints of primarily shortness of breath and her asthma acting up. She apparently complained of shortness of breath, cough, wheezing, chest tightness and some phlegm production. In addition to all of that, she also complained of some GI issues. She has been having a significantly difficult time holding food down, and she states everything sort of "runs through her." She describes primarily loose stools and diarrhea. In the office, my partner did a chest x-ray which was apparently normal and also did a nasal swab for influenza. That was negative. Her shortness of breath has been going on for a couple days, getting progressively worse. Anyway, she is in primarily for an asthma exacerbation and these other GI issues. She does have a primary care physician who is Dr. Caicedo. She resides out in [place], [place] herself. CURRENT MEDICATIONS: At home include: 1. Lipitor used for hyperlipidemia. 2. Baclofen. 3. Bentyl. 4. Protonix. 5. Mirapex. 6. Lyrica. 7. Lidocaine patch. 8. Singulair. 9. Insulin. 10.Plavix. 11.Cymbalta. 12.Lexapro. 13.Ventolin. 14.Advair Diskus. 15.Provigil. 16.Vitamin D2. 17.Tricor. 18.Lasix. 19.Imdur. 20.Lisinopril/hydrochlorothiazide. 21.Klonopin. 22.[place]. 23.Tramadol. ALLERGIES: Allergies are multiple and include: 1. ASPIRIN. 2. IBUPROFEN. 3. IPRATROPIUM BROMIDE. 4. MEPERIDINE. 5. DILAUDID. 6. METFORMIN. 7. MORPHINE. 8. TRAZODONE. 9. AMBIEN. 10.MSG. PAST MEDICAL HISTORY: Positive for: 1. Chronic bronchial asthma. 2. History of CAD. 3. CVA. 4. Diabetes. 5. Hyperlipidemia. 6. Hypertension. 7. Pneumonia. 8. She also has a previous history of irritable bowel syndrome. 9. She was also told, probably by my partner, that she suffers from cataplexy and narcolepsy as well as stress urinary incontinence. SURGICAL HISTORY: Includes, among other things: 1. Appendectomy. 2. Breast surgery. 3. Heart catheterization. 4. Hernia repair. 5. Bilateral cataract surgery. 6. Right lumpectomy. 7. D&C. SOCIAL HISTORY: Positive for occasional alcohol use. She only drinks socially. She denies use of tobacco or illicit drugs. FAMILY HISTORY: Positive for hyperlipidemia, hypertension and diabetes. There is also apparently a family history of anemia and CVA. REVIEW OF SYSTEMS: CONSTITUTIONAL: Negative. NEUROLOGIC: Negative. HEENT: Negative. CARDIOVASCULAR: Negative. PULMONARY: Shortness of breath, chest tightness, wheezing, cough, chest congestion and phlegm production. GI: Diarrhea. : Negative. RHEUMATOLOGIC/IMMUNOLOGIC: Negative. ENDOCRINOLOGIC: Negative. DERMATOLOGIC: Negative. PHYSICAL EXAMINATION: Current vital signs are reviewed. Temperature is 97.9, heart rate 94, respiratory rate 20, blood pressure 139/60, mean 86, two-liter saturation 97%. Appears in no acute distress. HEENT examination is grossly unremarkable. Mucous membranes are moist. No oral lesions. Nasal oxygen noted. NECK: Supple. Full range of motion. No adenopathy or thyromegaly. Neck veins are flat. Cardiovascular examination reveals regular rhythm and rate. S1, S2 normal. No S3, S4 or murmur. Heart rate is about 94. Heart sounds are somewhat distant. Lungs reveal diffuse inspiratory and expiratory wheezes and rhonchi. There is prolongation on forced maneuver. The patient's adventitious lung sounds are more prominent on forced maneuver. Breath sounds are equal bilaterally but diminished throughout. No crackles. ABDOMEN: Obese. Bowel sounds are heard. Extremities are intact. No cyanosis, clubbing or edema. Skin without rash. Neurologic examination is brief but nonfocal. LABORATORY STUDIES: Microbiologic studies are negative. Labs are reviewed. White count 17.6, hemoglobin 15.5, hematocrit 46.2, platelet count 236,000. PT, INR, PTT normal. Blood gas was done on 28% oxygen or 2 L: PO2 119, pCO2 of 33, pH 7.39. Blood gases are consistent with a mild respiratory alkalosis and metabolic acidosis. This is a mixed acid-base disturbance. Sodium 140, potassium 4.2, chloride 107, CO2 21. BUN and creatinine were 12 and 0.67. The rest of the labs look good. C difficile was negative. Medications are reviewed. They will be adjusted accordingly. Chest x-ray in the office was apparently normal. One has not been done here. ASSESSMENT: 1. Asthma exacerbation complicated by purulent tracheobronchitis, without chante pneumonia. 2. History of coronary artery disease. 3. History of cerebrovascular accident. 4. Diabetes mellitus. 5. Hyperlipidemia. 6. Hypertension. 7. History of pneumonia. 8. Irritable bowel syndrome. 9. History of narcolepsy and cataplexy. PLAN: The patient's medications are reviewed. Labs and x-rays are reviewed. Additional recommendations and suggestions are forthcoming. Will focus primarily on the pulmonary system. The primary service can deal with the issues related to the gastrointestinal tract. Hopefully she will have only a short stay in the hospital. Additional recommendations and suggestions are forthcoming. MMODL / IJN: [id number] /
[2018-03-20 21:00] LABS: Glucose,Whole Blood 320 mg/dL (75-99)
[2018-03-20] MEDS: FORMOTEROL FUMARATE 20 MCG/2 ML NEBU INHALATION SCH (21:25)
[2018-03-20] MEDS: BUDESONIDE 1 MG/2 ML NEBU INHALATION SCH (21:25)
[2018-03-20] MEDS: FAMOTIDINE 20 MG TAB PO SCH (21:35)
[2018-03-20] MEDS: HEPARIN SODIUM,PORCINE 5,000 UNIT/ML 1 ML VIAL SQ SCH (21:35)
[2018-03-20] MEDS: ATORVASTATIN 80 MG TAB PO SCH (21:35)
[2018-03-20] MEDS: INSULIN DETEMIR 100 UNIT/ML 10 ML VIAL SQ SCH (21:36)
[2018-03-21 06:01] LABS: Glucose,Whole Blood 370 mg/dL (75-99)
[2018-03-21] MEDS: methylPREDNISolone SOD SUCCI 125 MG/2 ML VIAL IV SCH (06:17)
[2018-03-21] MEDS: INSULIN ASPART 100 UNIT/ML 1 ML 10 ML VIAL SQ SCH ×7 (06:17→21:29)
[2018-03-21] MEDS: DULoxetine HCL 30 MG CAPSULE.DR PO SCH ×2 (08:41→20:44)
[2018-03-21] MEDS: FAMOTIDINE 20 MG TAB PO SCH ×3 (08:41→21:28)
[2018-03-21] MEDS: FUROSEMIDE 20 MG TAB PO SCH (08:41)
[2018-03-21] MEDS: ALBUTEROL NEBULIZED 2.5 MG/3 ML INHALATION SCH ×4 (08:51→21:14)
[2018-03-21] MEDS: FORMOTEROL FUMARATE 20 MCG/2 ML NEBU INHALATION SCH (08:51)
[2018-03-21] MEDS: BUDESONIDE 1 MG/2 ML NEBU INHALATION SCH ×2 (08:51→21:15)
--- NOTE | 2018-03-21 10:18 | P.PN ---
Subjective Patient is admitted for presumed examination patient the is clinically doing well at this time patient still has some expiratory wheezing patient blood sugars are high because of the systemic steroids which I'm cutting it down. As of her continued wheeze and significant changes in her insulin regimen along with the changes in prednisone patient will be monitored one more night. Probably can be discharged tomorrow patient is still bit short of breath Constitutional: Denied any fatigue denied any fever. Cardio vascular: denied any chest pain, palpitations Gastrointestinal denied any nausea vomiting Pulmonary: As mentioned in HPI Neurologic denied any new focal deficits All inpatient medications were reviewed and appropriate changes in these medications as dictated in the interval history and assessment and plan. Objective - Vital Signs Vital signs: Vital Signs Temp 97.4 F L 03/21/18 04:00 Pulse 94 03/21/18 09:05 Resp 20 03/21/18 04:00 BP 108/53 03/21/18 04:00 Pulse Ox 95 03/21/18 04:00 Intake & Output 03/20/18 03/21/18 03/21/18 18:59 06:59 18:59 Intake Total 720 220 Balance 720 220 Weight 70.2 kg Intake: Oral 720 220 Other: Voiding Method Toilet Toilet # Voids 1 1 # Bowel Movements 2 - Exam PHYSICAL EXAMINATION: GENERAL: The patient is alert and oriented x3, not in any acute distress. Well developed, well nourished. HEENT: Pupils are round and equally reacting to light. EOMI. No scleral icterus. No conjunctival pallor. Normocephalic, atraumatic. No pharyngeal erythema. No thyromegaly. CARDIOVASCULAR: S1 and S2 present. No murmurs, rubs, or gallops. PULMONARY: Wheezing significantly improved but still has some wheeze bilaterally expiratory wheezing. ABDOMEN: Soft, nontender, nondistended, normoactive bowel sounds. No palpable organomegaly. MUSCULOSKELETAL: No joint swelling or deformity. EXTREMITIES: No cyanosis, clubbing, or pedal edema. NEUROLOGICAL: Gross neurological examination did not reveal any focal deficits. SKIN: No rashes. - Labs CBC & Chem 7: 03/19/18 14:41 03/19/18 14:41 Labs: Abnormal Lab Results - Last 24 Hours (Table) 03/19/18 03/20/18 03/20/18 Range/Units 14:41 11:36 16:43 POC Glucose (mg/dL) 403 H 394 H (75-99) mg/dL Hemoglobin A1c 7.4 H (4.0-6.0) % 03/20/18 03/21/18 Range/Units 20:58 06:00 POC Glucose (mg/dL) 320 H 370 H (75-99) mg/dL Hemoglobin A1c (4.0-6.0) % Microbiology - Last 24 Hours (Table) 03/19/18 14:41 Blood Culture - Preliminary Blood No Growth after 24 hours Assessment and Plan Plan: Acute hypercapnic respiratory failure: Secondary to COPD exacerbation patient will be continued on systemic steroids inhalational treatments. -Type 2 diabetes mellitus uncontrolled elevated blood sugars due to systemic steroids, steroids will be switched to oral and patient regimen was changed to long-acting and pre-meal insulin need to monitor blood sugars closely because of significant changes in medications including systemic steroids. -Coronary artery disease -hypertension -Hyperlipidemia Coronary artery disease -Anxiety -Depression
[2018-03-21] MEDS: LISINOPRIL-HCTZ 10-12.5 MG 1 EACH TAB PO SCH (10:41)
[2018-03-21] MEDS: HEPARIN SODIUM,PORCINE 5,000 UNIT/ML 1 ML VIAL SQ SCH ×2 (10:41→20:44)
[2018-03-21 11:41] LABS: Glucose,Whole Blood 200 mg/dL (75-99)
--- NOTE | 2018-03-21 14:04 | P.PN ---
Subjective Progress Note Date: 03/21/18 Principal diagnosis: Acute exacerbation of chronic bronchial asthma, complicated by purulent tracheobronchitis without for pneumonia. This is a nice 72-year-old white female patient of Dr. Caicedo, with past medical history chronic bronchial asthma, unspecified, coronary artery disease, cerebrovascular accident, diabetes mellitus type 2, hypertension, hyperlipidemia , history of pneumonia, irritable bowel syndrome, narcolepsy and cataplexy, who was admitted to the hospital on 03/19/2018 for complaints of worsening shortness of breath, chest congestion, cough, chest tightness, wheezing, and some phlegm production. In addition patient has been complaining of ongoing diarrhea, it had been difficult for the patient to keep any food down, she has been having diarrhea as soon as she would take in any food or fluids. Chest x- ray did not show any clear evidence of pneumonia, admission lab work did show elevated blood blood cell count, 17.6, hemoglobin of 15.5, INR was 0.9, sodium was 140, potassium is 4.2, chloride was 107, CO2 is 21, BUN was 12, creatinine was 0.67, troponin was negative 1, proBNP was within normal limits at 198, C. difficile colitis was negative, but culture showed no growth. Room air pulse ox is 94%, patient is afebrile, she still quite short of breath, and bronchospastic on today's exam. Having ongoing diarrhea. She states her breathing is slightly better. Some coughing episodes. Objective - Vital Signs Vital signs: Vital Signs Temp 98.4 F 03/21/18 08:25 Pulse 90 03/21/18 12:15 Resp 17 03/21/18 08:25 BP 143/69 03/21/18 08:25 Pulse Ox 94 L 03/21/18 08:25 Intake & Output 03/20/18 03/21/18 03/21/18 18:59 06:59 18:59 Intake Total 720 220 0 Balance 720 220 0 Weight 70.2 kg Intake: Oral 720 220 0 Other: Voiding Method Toilet Toilet Toilet # Voids 1 1 1 # Bowel Movements 2 - Exam GENERAL EXAM: Alert, pleasant, 72-year-old white female comfortable in no apparent distress. HEAD: Normocephalic/atraumatic. EYES: Normal reaction of pupils, equal size. Conjunctiva pink, sclera white. NOSE: Clear with pink turbinates. THROAT: No erythema or exudates. NECK: No masses, no JVD, no thyroid enlargement, no adenopathy. CHEST: No chest wall deformity. Symmetrical expansion. LUNGS: Equal air entry with diffuse wheezes throughout the lung cuevas CVS: Regular rate and rhythm, normal S1 and S2, no gallops, no murmurs, no rubs ABDOMEN: Soft, nontender. No hepatosplenomegaly, normal bowel sounds, no guarding or rigidity. EXTREMITIES: No clubbing, no edema, no cyanosis, 2+ pulses and upper and lower extremities. MUSCULOSKELETAL: Muscle strength and tone normal. SPINE: No scoliosis or deformity SKIN: No rashes CENTRAL NERVOUS SYSTEM: Alert and oriented -3. No focal deficits, tone is normal in all 4 extremities. PSYCHIATRIC: Alert and oriented -3. Appropriate affect. Intact judgment and insight. - Labs CBC & Chem 7: 03/19/18 14:41 03/19/18 14:41 Labs: Abnormal Lab Results - Last 24 Hours (Table) 03/19/18 03/20/18 03/20/18 Range/Units 14:41 16:43 20:58 POC Glucose (mg/dL) 394 H 320 H (75-99) mg/dL Hemoglobin A1c 7.4 H (4.0-6.0) % 03/21/18 03/21/18 Range/Units 06:00 11:40 POC Glucose (mg/dL) 370 H 200 H (75-99) mg/dL Hemoglobin A1c (4.0-6.0) % Microbiology - Last 24 Hours (Table) 03/19/18 14:41 Blood Culture - Preliminary Blood No Growth after 24 hours Assessment and Plan Plan: Assessment: #1. Acute exacerbation of chronic bronchial asthma, of unspecified type, complicated by purulent tracheobronchitis, without chante pneumonia, #2. Leukocytosis #3. Ongoing diarrhea, C. diff colitis was negative. Might be related to acute episode of gastroenteritis #4. History of coronary artery disease #5. Hypertension, hyperlipidemia #6. Anxiety, depression Plan: We'll continue current medical treatment, nebulized treatments, we'll stop the Perforormist, patient is complaining of severe headaches when she is given all breathing treatments one after another, including the Perforromist. Patient is still quite bronchospastic, dyspneic. Not ready for discharge. We'll continue to follow I performed a history & physical examination of the patient and discussed their management with my nurse practitioner, Debbie Barboza. I reviewed the nurse practitioner's note and agree with the documented findings and plan of care. Lung sounds are positive for diffuse wheezes throughout the lung cuevas. The findings and the impression was discussed with the patient. I attest to the documentation by the nurse practitioner. Time with Patient: Less than 30
[2018-03-21 16:59] LABS: Glucose,Whole Blood 189 mg/dL (75-99)
[2018-03-21 20:37] LABS: Glucose,Whole Blood 176 mg/dL (75-99)
[2018-03-21] MEDS: ATORVASTATIN 80 MG TAB PO SCH (20:44)
[2018-03-21] MEDS: INSULIN DETEMIR 100 UNIT/ML 10 ML VIAL SQ SCH ×2 (21:29→21:45)
[2018-03-22 00:38] LABS: Glucose,Whole Blood 131 mg/dL (75-99)
[2018-03-22] MEDS: HYDROcodone/APAP 7.5-325MG 1 EACH TAB PO PRN ×2 (01:08→12:45)
[2018-03-22 01:16] LABS: Appearance,Urine Clear (Clear); Bilirubin,Urine Negative (Negative); Blood,Urine Negative (Negative); Color,Urine Yellow; Glucose,Urine (UA) Negative (Negative); Hyaline Casts,Urine 3 /lpf (0-2); Ketones,Urine Negative (Negative); Leukocyte Esterase,Urine Trace (Negative); Mucus,Urine Occasional /hpf; Nitrite,Urine Negative (Negative); Protein,Urine Negative (Negative); RBC,Urine 1 /hpf (0-5); Specific Gravity,Urine 1.025 (1.001-1.035); Squamous Epithelial Cell,Urine 3 /hpf (0-4); Urobilinogen,Urine <2.0 mg/dL (<2.0); WBC,Urine 3 /hpf (0-5)
[2018-03-22 01:31] LABS: HCT 41.3 % (34.0-46.0); HGB 13.8 gm/dL (11.4-16.0); MCH 29.2 pg (25.0-35.0); MCHC 33.3 g/dL (31.0-37.0); MCV 87.8 fL (80.0-100.0); Mean Platelet Volume 7.2; Platelet Count 237 k/uL (150-450); RBC 4.71 m/uL (3.80-5.40); RDW 13.3 % (11.5-15.5); WBC 15.2 k/uL (3.8-10.6)
[2018-03-22 01:41] LABS: Calcium 9.7 mg/dL (8.4-10.2); Potassium 3.6 mmol/L (3.5-5.1); Total Bilirubin 0.9 mg/dL (0.2-1.3); Total Protein 6.4 g/dL (6.3-8.2)
[2018-03-22 04:46] LABS: Glucose,Whole Blood 254 mg/dL (75-99)
[2018-03-22 06:57] LABS: Glucose,Whole Blood 231 mg/dL (75-99)
[2018-03-22] MEDS: ALBUTEROL NEBULIZED 2.5 MG/3 ML INHALATION SCH ×4 (07:10→20:19)
[2018-03-22] MEDS: BUDESONIDE 1 MG/2 ML NEBU INHALATION SCH ×2 (07:10→20:19)
[2018-03-22] MEDS: FAMOTIDINE 20 MG TAB PO SCH (08:28)
[2018-03-22] MEDS: DULoxetine HCL 30 MG CAPSULE.DR PO SCH ×2 (08:28→21:33)
[2018-03-22] MEDS: FUROSEMIDE 20 MG TAB PO SCH (08:28)
[2018-03-22] MEDS: HEPARIN SODIUM,PORCINE 5,000 UNIT/ML 1 ML VIAL SQ SCH ×2 (08:28→21:33)
[2018-03-22] MEDS: INSULIN ASPART 100 UNIT/ML 1 ML 10 ML VIAL SQ SCH ×7 (08:28→21:34)
[2018-03-22] MEDS: predniSONE 20 MG TAB PO SCH (08:28)
[2018-03-22] MEDS: LISINOPRIL-HCTZ 10-12.5 MG 1 EACH TAB PO SCH (08:28)
[2018-03-22] MEDS ORDERED: SODIUM CHLORIDE 0.9% 1,000 ML IV ONE (10:56)
[2018-03-22 11:34] LABS: Glucose,Whole Blood 109 mg/dL (75-99)
--- NOTE | 2018-03-22 13:58 | P.PN ---
Subjective Progress Note Date: 03/22/18 Principal diagnosis: Acute exacerbation of chronic bronchial asthma, complicated by purulent tracheobronchitis without clear evidence of pneumonia. This is a nice 72-year-old female patient of Dr. Caicedo, with past medical history chronic bronchial asthma, unspecified, coronary artery disease, cerebrovascular accident, diabetes mellitus type 2, hypertension, hyperlipidemia , history of pneumonia, irritable bowel syndrome, narcolepsy and cataplexy, who was admitted to the hospital on 03/19/2018 for complaints of worsening shortness of breath, chest congestion, cough, chest tightness, wheezing, and some phlegm production. In addition patient has been complaining of ongoing diarrhea, it had been difficult for the patient to keep any food down, she has been having diarrhea as soon as she would take in any food or fluids. Chest x- ray did not show any clear evidence of pneumonia, admission lab work did show elevated blood blood cell count, 17.6, hemoglobin of 15.5, INR was 0.9, sodium was 140, potassium is 4.2, chloride was 107, CO2 is 21, BUN was 12, creatinine was 0.67, troponin was negative 1, proBNP was within normal limits at 198, C. difficile colitis was negative, but culture showed no growth. Room air pulse ox is 94%, patient is afebrile, she still quite short of breath, and bronchospastic on today's exam. Having ongoing diarrhea. She states her breathing is slightly better. Some coughing episodes. The patient is seen today 03/22/2018 in follow-up on the regular medical floor. She is awake and alert in no acute distress. She has been having issues with altered mental status. She currently thinks she needs to go by [employer] and needs to go to the pharmacy to get something for a headache. She is being monitored closely by nursing staff. She is currently maintaining O2 saturations in the 90s on room air. She's been afebrile. Hemodynamically stable. The cultures reveal no growth. Current lactic acid 3.0. White count 15.2. Hemoglobin 13.8. Creatinine 0.99. She remains on DuoNeb inhalations, Pulmicort inhalations, oral prednisone. Objective - Vital Signs Vital signs: Vital Signs Temp 97.9 F 03/22/18 05:53 Pulse 86 03/22/18 11:18 Resp 14 03/22/18 05:53 BP 104/65 03/22/18 05:53 Pulse Ox 96 03/22/18 07:11 Intake & Output 03/21/18 03/22/18 03/22/18 18:59 06:59 18:59 Intake Total 0 Balance 0 Weight 70.6 kg Intake: Oral 0 Other: Voiding Method Toilet Toilet # Voids 1 2 2 # Bowel Movements 1 - Exam GENERAL EXAM: Alert, pleasant, 72-year-old female comfortable in no apparent distress. HEAD: Normocephalic/atraumatic. EYES: Normal reaction of pupils, equal size. Conjunctiva pink, sclera white. NOSE: Clear with pink turbinates. THROAT: No erythema or exudates. NECK: No masses, no JVD, no thyroid enlargement, no adenopathy. CHEST: No chest wall deformity. Symmetrical expansion. LUNGS: Equal air entry with diffuse wheezes throughout the lung cuevas CVS: Regular rate and rhythm, normal S1 and S2, no gallops, no murmurs, no rubs ABDOMEN: Soft, nontender. No hepatosplenomegaly, normal bowel sounds, no guarding or rigidity. EXTREMITIES: No clubbing, no edema, no cyanosis, 2+ pulses and upper and lower extremities. MUSCULOSKELETAL: Muscle strength and tone normal. SPINE: No scoliosis or deformity SKIN: No rashes CENTRAL NERVOUS SYSTEM: Alert and confused. No focal deficits, tone is normal in all 4 extremities. PSYCHIATRIC: Alert and oriented -3. Appropriate affect. Intact judgment and insight. - Labs CBC & Chem 7: 03/22/18 01:27 03/22/18 01:27 Labs: Abnormal Lab Results - Last 24 Hours (Table) 03/21/18 03/21/18 03/22/18 Range/Units 16:57 20:36 00:27 WBC (3.8-10.6) k/uL Sodium (137-145) mmol/L BUN (7-17) mg/dL Glucose (74-99) mg/dL POC Glucose (mg/dL) 189 H 176 H 131 H (75-99) mg/dL Plasma Lactic Acid Donte (0.7-2.0) mmol/L Ur Leukocyte Esterase (Negative) Hyaline Casts (0-2) /lpf Urine Mucus (None) /hpf 03/22/18 03/22/18 03/22/18 Range/Units 00:50 01:27 01:27 WBC 15.2 H (3.8-10.6) k/uL Sodium 136 L (137-145) mmol/L BUN 34 H (7-17) mg/dL Glucose 192 H (74-99) mg/dL POC Glucose (mg/dL) (75-99) mg/dL Plasma Lactic Acid Donte (0.7-2.0) mmol/L Ur Leukocyte Esterase Trace H (Negative) Hyaline Casts 3 H (0-2) /lpf Urine Mucus Occasional H (None) /hpf 03/22/18 03/22/18 03/22/18 Range/Units 01:27 04:44 05:28 WBC (3.8-10.6) k/uL Sodium (137-145) mmol/L BUN (7-17) mg/dL Glucose (74-99) mg/dL POC Glucose (mg/dL) 254 H (75-99) mg/dL Plasma Lactic Acid Donte 2.4 H* 2.5 H* (0.7-2.0) mmol/L Ur Leukocyte Esterase (Negative) Hyaline Casts (0-2) /lpf Urine Mucus (None) /hpf 03/22/18 03/22/18 03/22/18 Range/Units 06:55 10:00 11:32 WBC (3.8-10.6) k/uL Sodium (137-145) mmol/L BUN (7-17) mg/dL Glucose (74-99) mg/dL POC Glucose (mg/dL) 231 H 109 H (75-99) mg/dL Plasma Lactic Acid Donte 3.0 H* (0.7-2.0) mmol/L Ur Leukocyte Esterase (Negative) Hyaline Casts (0-2) /lpf Urine Mucus (None) /hpf Microbiology - Last 24 Hours (Table) 03/19/18 14:41 Blood Culture - Preliminary Blood No Growth after 48 hours Assessment and Plan Assessment: Assessment: #1. Acute exacerbation of chronic bronchial asthma, of unspecified type, complicated by purulent tracheobronchitis, without chante pneumonia, #2. Leukocytosis #3. Ongoing diarrhea, C. diff colitis was negative. Might be related to acute episode of gastroenteritis #4. History of coronary artery disease #5. Hypertension, hyperlipidemia #6. Anxiety, depression Plan: The patient was seen and evaluated by Dr. Cardona. She is still quite bronchospastic and wheezy. We'll continue with the current treatment plan. She will receive some IV fluids regarding the elevated lactate. We will initiate empiric antibiotics. She is having some issues with altered mental status. We will continue to follow and make further recommendations based on her clinical status. I, the cosigning physician, performed a history & physical examination of the patient. Lungs sounds with bilateral end expiratory wheeze, diminished. Maintaining good O2 saturations in the 90s on room air. I discussed the assessment and plan of care with my nurse practitioner, Jazmin Almeida. I attest to the above note as dictated by her.
[2018-03-22] MEDS: AMOXIC-POT CLAV 875-125MG 1 EACH TAB PO SCH ×2 (14:06→21:33)
--- NOTE | 2018-03-22 14:24 | P.PN ---
Subjective Patient is admitted for presumed examination patient the is clinically doing well at this time patient still has some expiratory wheezing patient blood sugars are high because of the systemic steroids which I'm cutting it down. As of her continued wheeze and significant changes in her insulin regimen along with the changes in prednisone patient will be monitored one more night. Probably can be discharged tomorrow patient is still bit short of breath 03/22/2018 Patient has lactic acidosis from my diuretic therapy which will be discontinued ration to 80s on Augmentin no evidence of pneumonia patient does have tracheobronchitis severe patient wheezing is bit worse today patient is bit short of breath and feels like she is on down this is probably because of intravascular depletion and lactic acidosis patient will be continued on IV fluids until tomorrow and I'm expecting her blood sugars to go down as we change it had to oral prednisone Constitutional: Denied any fatigue denied any fever. Cardio vascular: denied any chest pain, palpitations Gastrointestinal denied any nausea vomiting Pulmonary: As mentioned in HPI Neurologic denied any new focal deficits All inpatient medications were reviewed and appropriate changes in these medications as dictated in the interval history and assessment and plan. Objective - Vital Signs Vital signs: Vital Signs Temp 97.9 F 03/22/18 05:53 Pulse 86 03/22/18 11:18 Resp 14 03/22/18 05:53 BP 104/65 03/22/18 05:53 Pulse Ox 96 03/22/18 07:11 Intake & Output 03/21/18 03/22/18 03/22/18 18:59 06:59 18:59 Intake Total 0 1000 Balance 0 1000 Weight 70.6 kg Intake: IV 1000 Sodium Chloride 0.9% 1, 1000 000 ml @ 999 mls/hr IV . Q1H1M ONE Rx#:[id number] Oral 0 Other: Voiding Method Toilet Toilet # Voids 1 2 1 # Bowel Movements 1 - Exam PHYSICAL EXAMINATION: GENERAL: The patient is alert and oriented x3, not in any acute distress. Well developed, well nourished. Patient appears to be tired and fatigued HEENT: Pupils are round and equally reacting to light. EOMI. No scleral icterus. No conjunctival pallor. Normocephalic, atraumatic. No pharyngeal erythema. No thyromegaly. CARDIOVASCULAR: S1 and S2 present. No murmurs, rubs, or gallops. PULMONARY: Wheezing significantly improved but still has some wheeze bilaterally expiratory wheezing. ABDOMEN: Soft, nontender, nondistended, normoactive bowel sounds. No palpable organomegaly. MUSCULOSKELETAL: No joint swelling or deformity. EXTREMITIES: No cyanosis, clubbing, or pedal edema. NEUROLOGICAL: Gross neurological examination did not reveal any focal deficits. SKIN: No rashes. - Labs CBC & Chem 7: 03/22/18 01:27 03/22/18 01:27 Labs: Abnormal Lab Results - Last 24 Hours (Table) 03/21/18 03/21/18 03/22/18 Range/Units 16:57 20:36 00:27 WBC (3.8-10.6) k/uL Sodium (137-145) mmol/L BUN (7-17) mg/dL Glucose (74-99) mg/dL POC Glucose (mg/dL) 189 H 176 H 131 H (75-99) mg/dL Plasma Lactic Acid Donte (0.7-2.0) mmol/L Ur Leukocyte Esterase (Negative) Hyaline Casts (0-2) /lpf Urine Mucus (None) /hpf 03/22/18 03/22/18 03/22/18 Range/Units 00:50 01:27 01:27 WBC 15.2 H (3.8-10.6) k/uL Sodium 136 L (137-145) mmol/L BUN 34 H (7-17) mg/dL Glucose 192 H (74-99) mg/dL POC Glucose (mg/dL) (75-99) mg/dL Plasma Lactic Acid Donte (0.7-2.0) mmol/L Ur Leukocyte Esterase Trace H (Negative) Hyaline Casts 3 H (0-2) /lpf Urine Mucus Occasional H (None) /hpf 03/22/18 03/22/18 03/22/18 Range/Units 01:27 04:44 05:28 WBC (3.8-10.6) k/uL Sodium (137-145) mmol/L BUN (7-17) mg/dL Glucose (74-99) mg/dL POC Glucose (mg/dL) 254 H (75-99) mg/dL Plasma Lactic Acid Donte 2.4 H* 2.5 H* (0.7-2.0) mmol/L Ur Leukocyte Esterase (Negative) Hyaline Casts (0-2) /lpf Urine Mucus (None) /hpf 03/22/18 03/22/18 03/22/18 Range/Units 06:55 10:00 11:32 WBC (3.8-10.6) k/uL Sodium (137-145) mmol/L BUN (7-17) mg/dL Glucose (74-99) mg/dL POC Glucose (mg/dL) 231 H 109 H (75-99) mg/dL Plasma Lactic Acid Donte 3.0 H* (0.7-2.0) mmol/L Ur Leukocyte Esterase (Negative) Hyaline Casts (0-2) /lpf Urine Mucus (None) /hpf Microbiology - Last 24 Hours (Table) 03/19/18 14:41 Blood Culture - Preliminary Blood No Growth after 48 hours Assessment and Plan Plan: Acute hypercapnic respiratory failure: Secondary to COPD exacerbation patient will be continued on systemic steroids inhalational treatments. -Type 2 diabetes mellitus uncontrolled elevated blood sugars due to systemic steroids, patient's blood sugars are expected to go down because of which I'm cutting down the pre-meal insulin patient's Levemir was already cut down yesterday. Closely monitor blood sugars -Lactic acidosis secondary to mostly diuretic therapy patient is on empiric antibiotics for bronchitis no evidence of pneumonia at this time we'll repeat the chest x-ray tomorrow -Coronary artery disease -hypertension -Hyperlipidemia Coronary artery disease -Anxiety -Depression
[2018-03-22] MEDS: SODIUM CHLORIDE 0.9% 1,000 ML IV SCH (14:46)
[2018-03-22 17:06] LABS: Glucose,Whole Blood 199 mg/dL (75-99)
[2018-03-22 20:44] LABS: Glucose,Whole Blood 227 mg/dL (75-99)
[2018-03-22] MEDS: ATORVASTATIN 80 MG TAB PO SCH (21:33)
[2018-03-22] MEDS: INSULIN DETEMIR 100 UNIT/ML 10 ML VIAL SQ SCH (21:34)
[2018-03-23] MEDS: SODIUM CHLORIDE 0.9% 1,000 ML IV SCH ×2 (03:02→11:51)
[2018-03-23 07:01] LABS: Glucose,Whole Blood 185 mg/dL (75-99)
[2018-03-23] MEDS: ALBUTEROL NEBULIZED 2.5 MG/3 ML INHALATION SCH ×4 (07:50→19:13)
[2018-03-23] MEDS: BUDESONIDE 1 MG/2 ML NEBU INHALATION SCH (07:50)
[2018-03-23] MEDS: FAMOTIDINE 20 MG TAB PO SCH (08:13)
[2018-03-23] MEDS: DULoxetine HCL 30 MG CAPSULE.DR PO SCH (08:13)
[2018-03-23] MEDS: HEPARIN SODIUM,PORCINE 5,000 UNIT/ML 1 ML VIAL SQ SCH (08:13)
[2018-03-23] MEDS: predniSONE 20 MG TAB PO SCH (08:13)
[2018-03-23] MEDS: AMOXIC-POT CLAV 875-125MG 1 EACH TAB PO SCH (08:13)
[2018-03-23] MEDS: INSULIN ASPART 100 UNIT/ML 1 ML 10 ML VIAL SQ SCH ×6 (08:13→18:05)
[2018-03-23] MEDS: HYDROcodone/APAP 7.5-325MG 1 EACH TAB PO PRN (08:20)
[2018-03-23 11:06] LABS: MCH 28.7 pg (25.0-35.0); MCHC 33.2 g/dL (31.0-37.0); MCV 86.4 fL (80.0-100.0); Mean Platelet Volume 7.7; Platelet Count 140 k/uL (150-450); RBC 4.52 m/uL (3.80-5.40); RDW 13.1 % (11.5-15.5); WBC 9.1 k/uL (3.8-10.6)
[2018-03-23 11:15] LABS: Glucose,Whole Blood 162 mg/dL (75-99)
[2018-03-23 11:18] LABS: Anion Gap 8 mmol/L; Blood Urea Nitrogen 23 mg/dL (7-17); Calcium 8.4 mg/dL (8.4-10.2); Carbon Dioxide 25 mmol/L (22-30); Chloride 104 mmol/L (98-107); Glucose 193 mg/dL (74-99); Potassium 3.5 mmol/L (3.5-5.1); Sodium 137 mmol/L (137-145)
--- NOTE | 2018-03-23 12:45 | P.PN ---
Subjective Progress Note Date: 03/23/18 Principal diagnosis: Acute exacerbation of chronic bronchial asthma, complicated by purulent tracheobronchitis without for pneumonia. This is a nice 72-year-old white female patient of Dr. Caicedo, with past medical history chronic bronchial asthma, unspecified, coronary artery disease, cerebrovascular accident, diabetes mellitus type 2, hypertension, hyperlipidemia , history of pneumonia, irritable bowel syndrome, narcolepsy and cataplexy, who was admitted to the hospital on 03/19/2018 for complaints of worsening shortness of breath, chest congestion, cough, chest tightness, wheezing, and some phlegm production. In addition patient has been complaining of ongoing diarrhea, it had been difficult for the patient to keep any food down, she has been having diarrhea as soon as she would take in any food or fluids. Chest x- ray did not show any clear evidence of pneumonia, admission lab work did show elevated blood blood cell count, 17.6, hemoglobin of 15.5, INR was 0.9, sodium was 140, potassium is 4.2, chloride was 107, CO2 is 21, BUN was 12, creatinine was 0.67, troponin was negative 1, proBNP was within normal limits at 198, C. difficile colitis was negative, but culture showed no growth. Room air pulse ox is 94%, patient is afebrile, she still quite short of breath, and bronchospastic on today's exam. Having ongoing diarrhea. She states her breathing is slightly better. Some coughing episodes. On 03/23/2018 patient seen in follow-up on medical surgical floor. Still quite bronchospastic, and dyspneic. Since on 2 L per nasal cannula her pulse ox is 97 %, she is afebrile, hemodynamically she stable, blood culture showed no growth at the 72 hour etta. Today's labs have been reviewed, and showed with blood cell count of 9.1, hemoglobin 13.0, electrolytes were within normal limits, BUN was 23 and creatinine was 0.62. Still having some episode of diarrhea, straight her plasma lactic acid was elevated at 2.7. She was given a liter bolus of IV fluids, and her maintenance IV fluids 0.9 normal saline and 100 ML per hour. Her diuretics have been discontinued. No fever or chills. She is on oral prednisone, nebulized bronchodilators, Symbicort. Yesterday we added oral antibiotics for empiric antibiotic coverage Objective - Vital Signs Vital signs: Vital Signs Temp 98.1 F 03/23/18 05:35 Pulse 87 03/23/18 11:30 Resp 16 03/23/18 05:35 BP 112/73 03/23/18 05:35 Pulse Ox 93 L 03/23/18 07:52 Intake & Output 03/22/18 03/23/18 03/23/18 18:59 06:59 18:59 Intake Total 1000 Balance 1000 Intake: IV 1000 Sodium Chloride 0.9% 1, 1000 000 ml @ 999 mls/hr IV . Q1H1M ONE Rx#:[id number] Other: # Voids 1 3 1 # Bowel Movements 1 1 - Exam GENERAL EXAM: Alert, pleasant, 72-year-old white female comfortable in no apparent distress. HEAD: Normocephalic/atraumatic. EYES: Normal reaction of pupils, equal size. Conjunctiva pink, sclera white. NOSE: Clear with pink turbinates. THROAT: No erythema or exudates. NECK: No masses, no JVD, no thyroid enlargement, no adenopathy. CHEST: No chest wall deformity. Symmetrical expansion. LUNGS: Equal air entry with diffuse wheezes throughout the lung cuevas CVS: Regular rate and rhythm, normal S1 and S2, no gallops, no murmurs, no rubs ABDOMEN: Soft, nontender. No hepatosplenomegaly, normal bowel sounds, no guarding or rigidity. EXTREMITIES: No clubbing, no edema, no cyanosis, 2+ pulses and upper and lower extremities. MUSCULOSKELETAL: Muscle strength and tone normal. SPINE: No scoliosis or deformity SKIN: No rashes CENTRAL NERVOUS SYSTEM: Alert and oriented -3. No focal deficits, tone is normal in all 4 extremities. PSYCHIATRIC: Alert and oriented -3. Appropriate affect. Intact judgment and insight. - Labs CBC & Chem 7: 03/23/18 09:59 03/23/18 09:59 Labs: Abnormal Lab Results - Last 24 Hours (Table) 03/22/18 03/22/18 03/22/18 Range/Units 14:12 17:02 20:42 Plt Count (150-450) k/uL BUN (7-17) mg/dL Glucose (74-99) mg/dL POC Glucose (mg/dL) 199 H 227 H (75-99) mg/dL Plasma Lactic Acid Donte 2.7 H* (0.7-2.0) mmol/L 03/23/18 03/23/18 03/23/18 Range/Units 06:56 09:59 09:59 Plt Count 140 L (150-450) k/uL BUN 23 H (7-17) mg/dL Glucose 193 H (74-99) mg/dL POC Glucose (mg/dL) 185 H (75-99) mg/dL Plasma Lactic Acid Donte (0.7-2.0) mmol/L 03/23/18 Range/Units 11:13 Plt Count (150-450) k/uL BUN (7-17) mg/dL Glucose (74-99) mg/dL POC Glucose (mg/dL) 162 H (75-99) mg/dL Plasma Lactic Acid Donte (0.7-2.0) mmol/L Microbiology - Last 24 Hours (Table) 03/19/18 14:41 Blood Culture - Preliminary Blood No Growth after 72 hours Assessment and Plan Plan: Assessment: #1. Acute exacerbation of chronic bronchial asthma, of unspecified type, complicated by purulent tracheobronchitis, without chante pneumonia, #2. Leukocytosis, resolved #3. Lactic acidosis, likely related to diarrhea, and diuretic. Cultures remain negative, no fever or chills, hemodynamically patient is stable #4. Ongoing diarrhea, C. diff colitis was negative. Might be related to acute episode of gastroenteritis #5. History of coronary artery disease #6. Hypertension, hyperlipidemia #7. Anxiety, depression Plan: Continue current medical treatment, we added empiric antibiotic coverage yesterday, cultures remain negative, patient was fluid resuscitated, IV fluids remain at 100 ML per hour, diuretics are on hold. Her leukocytosis has been resolved, fever or chills, she still quite bronchospastic, will continue with current dose of IV steroids, nebulized bronchodilators. Not ready for discharge I performed a history & physical examination of the patient and discussed their management with my nurse practitioner, Debbie Barboza. I reviewed the nurse practitioner's note and agree with the documented findings and plan of care. Lung sounds are positive for diffuse wheezes throughout the lung cuevas. The findings and the impression was discussed with the patient. I attest to the documentation by the nurse practitioner. Time with Patient: Less than 30
--- NOTE | 2018-03-23 13:02 | XR ---
EXAMINATION TYPE: XR chest 2V DATE OF EXAM: 03/23/2018 COMPARISON: 06/05/2017 HISTORY: Shortness of breath TECHNIQUE: Frontal and lateral views of the chest are obtained. FINDINGS: Scattered senescent parenchymal changes noted. Hyperinflation compatible with COPD. No evidence for infiltrate. No evidence for atelectasis. Heart size is stable. Pulmonary venous congestion without overt failure. Mediastinal structures are stable and grossly unremarkable. No evidence for hilar prominence. Degenerative changes dorsal spine. IMPRESSION: 1. Pulmonary venous congestion without overt failure.
[2018-03-23] MEDS ORDERED: POTASSIUM CHLORIDE ER 20 MEQ TAB.ER PO STA (13:28)
--- NOTE | 2018-03-23 13:28 | P.PN ---
Subjective Patient is admitted for presumed examination patient the is clinically doing well at this time patient still has some expiratory wheezing patient blood sugars are high because of the systemic steroids which I'm cutting it down. As of her continued wheeze and significant changes in her insulin regimen along with the changes in prednisone patient will be monitored one more night. Probably can be discharged tomorrow patient is still bit short of breath 03/22/2018 Patient has lactic acidosis from my diuretic therapy which will be discontinued ration to 80s on Augmentin no evidence of pneumonia patient does have tracheobronchitis severe patient wheezing is bit worse today patient is bit short of breath and feels like she is on down this is probably because of intravascular depletion and lactic acidosis patient will be continued on IV fluids until tomorrow and I'm expecting her blood sugars to go down as we change it had to oral prednisone 03/23/2018 Her lactic acidosis improved which is probably secondary to dietary along with diuretic therapy diarrhea resolved at this time. Patient's C. diff is negative. Patient overall clinically doing well but still has significant wheezing on exam and still bit short of breath. Constitutional: Denied any fatigue denied any fever. Cardio vascular: denied any chest pain, palpitations Gastrointestinal denied any nausea vomiting Pulmonary: As mentioned in HPI Neurologic denied any new focal deficits All inpatient medications were reviewed and appropriate changes in these medications as dictated in the interval history and assessment and plan. Objective - Vital Signs Vital signs: Vital Signs Temp 98.1 F 03/23/18 05:35 Pulse 87 03/23/18 11:30 Resp 16 03/23/18 05:35 BP 112/73 03/23/18 05:35 Pulse Ox 93 L 03/23/18 07:52 Intake & Output 03/22/18 03/23/18 03/23/18 18:59 06:59 18:59 Intake Total 1000 Balance 1000 Intake: IV 1000 Sodium Chloride 0.9% 1, 1000 000 ml @ 999 mls/hr IV . Q1H1M ONE Rx#:[id number] Other: # Voids 1 3 1 # Bowel Movements 1 1 - Exam PHYSICAL EXAMINATION: GENERAL: The patient is alert and oriented x3, not in any acute distress. Well developed, well nourished. Patient appears to be tired and fatigued HEENT: Pupils are round and equally reacting to light. EOMI. No scleral icterus. No conjunctival pallor. Normocephalic, atraumatic. No pharyngeal erythema. No thyromegaly. CARDIOVASCULAR: S1 and S2 present. No murmurs, rubs, or gallops. PULMONARY: Wheezing significantly improved but still has some wheeze bilaterally expiratory wheezing. ABDOMEN: Soft, nontender, nondistended, normoactive bowel sounds. No palpable organomegaly. MUSCULOSKELETAL: No joint swelling or deformity. EXTREMITIES: No cyanosis, clubbing, or pedal edema. NEUROLOGICAL: Gross neurological examination did not reveal any focal deficits. SKIN: No rashes. - Labs CBC & Chem 7: 03/23/18 09:59 03/23/18 09:59 Labs: Abnormal Lab Results - Last 24 Hours (Table) 03/22/18 03/22/18 03/22/18 Range/Units 14:12 17:02 20:42 Plt Count (150-450) k/uL BUN (7-17) mg/dL Glucose (74-99) mg/dL POC Glucose (mg/dL) 199 H 227 H (75-99) mg/dL Plasma Lactic Acid Donte 2.7 H* (0.7-2.0) mmol/L 03/23/18 03/23/18 03/23/18 Range/Units 06:56 09:59 09:59 Plt Count 140 L (150-450) k/uL BUN 23 H (7-17) mg/dL Glucose 193 H (74-99) mg/dL POC Glucose (mg/dL) 185 H (75-99) mg/dL Plasma Lactic Acid Donte (0.7-2.0) mmol/L 03/23/18 Range/Units 11:13 Plt Count (150-450) k/uL BUN (7-17) mg/dL Glucose (74-99) mg/dL POC Glucose (mg/dL) 162 H (75-99) mg/dL Plasma Lactic Acid Donte (0.7-2.0) mmol/L Microbiology - Last 24 Hours (Table) 03/19/18 14:41 Blood Culture - Preliminary Blood No Growth after 72 hours Assessment and Plan Plan: Acute hypercapnic respiratory failure: Secondary to COPD exacerbation patient will be continued on systemic steroids inhalational treatments. -Type 2 diabetes mellitus uncontrolled elevated blood sugars due to systemic steroids, patient's blood sugars are expected to go down because of which I'm cutting down the pre-meal insulin patient's Levemir was already cut down yesterday. Closely monitor blood sugars -Lactic acidosis secondary to mostly diuretic therapy, along with the diarrhea, C. diff was ruled out patient is on empiric antibiotics for bronchitis no evidence of pneumonia . Repeat chest x-ray today is was reviewed lactic acidosis resolved with IV fluids prior to hold on diuretic therapy -Coronary artery disease -hypertension -Hyperlipidemia Coronary artery disease -Anxiety -Depression
[2018-03-23 16:49] LABS: Glucose,Whole Blood 290 mg/dL (75-99)
[2018-03-23] MEDS: SYMBICORT 160-4.5 MCG INHALER INHALATION SCH (19:13)
[2018-03-23 20:50] LABS: Glucose,Whole Blood 218 mg/dL (75-99)
[2018-03-24] MEDS: DULoxetine HCL 30 MG CAPSULE.DR PO SCH ×3 (00:39→20:12)
[2018-03-24] MEDS: AMOXIC-POT CLAV 875-125MG 1 EACH TAB PO SCH ×3 (00:39→20:12)
[2018-03-24] MEDS: ATORVASTATIN 80 MG TAB PO SCH ×2 (00:39→20:12)
[2018-03-24] MEDS: INSULIN DETEMIR 100 UNIT/ML 10 ML VIAL SQ SCH ×2 (00:39→21:42)
[2018-03-24] MEDS: SODIUM CHLORIDE 0.9% 1,000 ML IV SCH ×3 (00:39→17:58)
[2018-03-24] MEDS: HYDROcodone/APAP 7.5-325MG 1 EACH TAB PO PRN ×3 (00:48→16:12)
[2018-03-24] MEDS: clonazePAM 0.5 MG TAB PO PRN (00:48)
[2018-03-24] MEDS: INSULIN ASPART 100 UNIT/ML 1 ML 10 ML VIAL SQ SCH ×8 (01:25→21:42)
[2018-03-24] MEDS: HEPARIN SODIUM,PORCINE 5,000 UNIT/ML 1 ML VIAL SQ SCH ×3 (01:25→20:12)
[2018-03-24 07:00] LABS: Glucose,Whole Blood 174 mg/dL (75-99)
[2018-03-24] MEDS: SYMBICORT 160-4.5 MCG INHALER INHALATION SCH ×2 (07:12→19:26)
[2018-03-24] MEDS: ALBUTEROL NEBULIZED 2.5 MG/3 ML INHALATION SCH ×4 (07:12→19:26)
[2018-03-24] MEDS: FAMOTIDINE 20 MG TAB PO SCH ×2 (08:17→20:12)
[2018-03-24] MEDS: predniSONE 20 MG TAB PO SCH (08:17)
[2018-03-24 12:09] LABS: Glucose,Whole Blood 158 mg/dL (75-99)
--- NOTE | 2018-03-24 15:08 | P.PN ---
Subjective Progress Note Date: 03/24/18 Principal diagnosis: Acute exacerbation of chronic bronchial asthma, complicated by purulent tracheobronchitis without for pneumonia. This is a nice 72-year-old white female patient of Dr. Caicedo, with past medical history chronic bronchial asthma, unspecified, coronary artery disease, cerebrovascular accident, diabetes mellitus type 2, hypertension, hyperlipidemia , history of pneumonia, irritable bowel syndrome, narcolepsy and cataplexy, who was admitted to the hospital on 03/19/2018 for complaints of worsening shortness of breath, chest congestion, cough, chest tightness, wheezing, and some phlegm production. In addition patient has been complaining of ongoing diarrhea, it had been difficult for the patient to keep any food down, she has been having diarrhea as soon as she would take in any food or fluids. Chest x- ray did not show any clear evidence of pneumonia, admission lab work did show elevated blood blood cell count, 17.6, hemoglobin of 15.5, INR was 0.9, sodium was 140, potassium is 4.2, chloride was 107, CO2 is 21, BUN was 12, creatinine was 0.67, troponin was negative 1, proBNP was within normal limits at 198, C. difficile colitis was negative, but culture showed no growth. Room air pulse ox is 94%, patient is afebrile, she still quite short of breath, and bronchospastic on today's exam. Having ongoing diarrhea. She states her breathing is slightly better. Some coughing episodes. On 03/23/2018 patient seen in follow-up on medical surgical floor. Still quite bronchospastic, and dyspneic. Since on 2 L per nasal cannula her pulse ox is 97 %, she is afebrile, hemodynamically she stable, blood culture showed no growth at the 72 hour etta. Today's labs have been reviewed, and showed with blood cell count of 9.1, hemoglobin 13.0, electrolytes were within normal limits, BUN was 23 and creatinine was 0.62. Still having some episode of diarrhea, straight her plasma lactic acid was elevated at 2.7. She was given a liter bolus of IV fluids, and her maintenance IV fluids 0.9 normal saline and 100 ML per hour. Her diuretics have been discontinued. No fever or chills. She is on oral prednisone, nebulized bronchodilators, Symbicort. Yesterday we added oral antibiotics for empiric antibiotic coverage On 03/24/2018 patient seen in follow-up on medical surgical floor. Awake and alert, in no acute distress, she is on 2 L per nasal cannula her pulse ox is 95% , she is afebrile, lung sounds are positive for diffuse wheezes, but a bit less bronchospastic on today's exam. The diarrhea has subsided, patient only had one episode of soft bowel movement today, today's lactic acid is 2.0, patient is receiving IV hydration, with 0.9 normal seen at a rate of 100 ML per hour. No nausea, no vomiting, no fever or chills. She remains on empiric antibiotics in the form of Augmentin, oral steroids, and nebulized bronchodilators Objective - Vital Signs Vital signs: Vital Signs Temp 97.4 F L 03/24/18 14:42 Pulse 80 03/24/18 14:42 Resp 16 03/24/18 14:42 BP 116/69 03/24/18 14:42 Pulse Ox 95 03/24/18 14:42 Intake & Output 03/23/18 03/24/18 03/24/18 18:59 06:59 18:59 Intake Total 800 Balance 800 Intake: IV 800 Sodium Chloride 0.9% 1, 800 000 ml @ 100 mls/hr IV . Q10H [facility] [place] Rx#:[id number] Other: Voiding Method Toilet Toilet Diaper Diaper # Voids 3 2 4 # Bowel Movements 1 1 - Exam GENERAL EXAM: Alert, pleasant, 72-year-old white female comfortable in no apparent distress. HEAD: Normocephalic/atraumatic. EYES: Normal reaction of pupils, equal size. Conjunctiva pink, sclera white. NOSE: Clear with pink turbinates. THROAT: No erythema or exudates. NECK: No masses, no JVD, no thyroid enlargement, no adenopathy. CHEST: No chest wall deformity. Symmetrical expansion. LUNGS: Equal air entry with diffuse wheezes throughout the lung cuevas CVS: Regular rate and rhythm, normal S1 and S2, no gallops, no murmurs, no rubs ABDOMEN: Soft, nontender. No hepatosplenomegaly, normal bowel sounds, no guarding or rigidity. EXTREMITIES: No clubbing, no edema, no cyanosis, 2+ pulses and upper and lower extremities. MUSCULOSKELETAL: Muscle strength and tone normal. SPINE: No scoliosis or deformity SKIN: No rashes CENTRAL NERVOUS SYSTEM: Alert and oriented -3. No focal deficits, tone is normal in all 4 extremities. PSYCHIATRIC: Alert and oriented -3. Appropriate affect. Intact judgment and insight. - Labs CBC & Chem 7: 03/23/18 09:59 03/23/18 09:59 Labs: Abnormal Lab Results - Last 24 Hours (Table) 03/23/18 03/23/18 03/24/18 Range/Units 16:46 20:41 06:59 POC Glucose (mg/dL) 290 H 218 H 174 H (75-99) mg/dL 03/24/18 Range/Units 12:06 POC Glucose (mg/dL) 158 H (75-99) mg/dL Microbiology - Last 24 Hours (Table) 03/19/18 14:41 Blood Culture - Preliminary Blood No Growth after 96 hours Assessment and Plan Plan: Assessment: #1. Acute exacerbation of chronic bronchial asthma, of unspecified type, complicated by purulent tracheobronchitis, without chante pneumonia, #2. Leukocytosis, resolved #3. Lactic acidosis, likely related to diarrhea, and diuretic. Cultures remain negative, no fever or chills, hemodynamically patient is stable #4. Ongoing diarrhea, C. diff colitis was negative. Might be related to acute episode of gastroenteritis. Improved #5. History of coronary artery disease #6. Hypertension, hyperlipidemia #7. Anxiety, depression Plan: Continue current medical treatment, continue oral prednisone, empiric antibiotics, nebulized bronchodilators. She is breathing easier, although still remains bronchospastic. She is tolerating ambulation, no fever or chills , vital signs are stable. We'll continue to follow I performed a history & physical examination of the patient and discussed their management with my nurse practitioner, Debbie Barboza. I reviewed the nurse practitioner's note and agree with the documented findings and plan of care. Lung sounds are positive for diffuse wheezes. The findings and the impression was discussed with the patient. I attest to the documentation by the nurse practitioner. Time with Patient: Less than 30
[2018-03-24 16:55] LABS: Glucose,Whole Blood 282 mg/dL (75-99)
--- NOTE | 2018-03-24 20:14 | P.PN ---
Subjective Progress Note Date: 03/24/18 Patient is admitted for presumed examination patient the is clinically doing well at this time patient still has some expiratory wheezing patient blood sugars are high because of the systemic steroids which I'm cutting it down. As of her continued wheeze and significant changes in her insulin regimen along with the changes in prednisone patient will be monitored one more night. Probably can be discharged tomorrow patient is still bit short of breath 03/22/2018 Patient has lactic acidosis from my diuretic therapy which will be discontinued ration to 80s on Augmentin no evidence of pneumonia patient does have tracheobronchitis severe patient wheezing is bit worse today patient is bit short of breath and feels like she is on down this is probably because of intravascular depletion and lactic acidosis patient will be continued on IV fluids until tomorrow and I'm expecting her blood sugars to go down as we change it had to oral prednisone 03/23/2018 Her lactic acidosis improved which is probably secondary to dietary along with diuretic therapy diarrhea resolved at this time. Patient's C. diff is negative. Patient overall clinically doing well but still has significant wheezing on exam and still bit short of breath. 03/24/2018 maintained on gentle IV fluid hydration, nebulized bronchodilators, Augmentin, steroids. Wheezing significantly improved, mild bronchospasms. Loose nonproductive cough. Maintaining O2 sats of mid 90s on 2 L nasal cannula. Afebrile. Constitutional: Denied any fatigue denied any fever. Cardio vascular: denied any chest pain, palpitations Gastrointestinal denied any nausea vomiting Pulmonary: As mentioned in HPI Neurologic denied any new focal deficits All inpatient medications were reviewed and appropriate changes in these medications as dictated in the interval history and assessment and plan. Objective - Vital Signs Vital signs: Vital Signs Temp 97.4 F L 03/24/18 14:42 Pulse 80 03/24/18 15:33 Resp 16 03/24/18 15:16 BP 116/69 03/24/18 14:42 Pulse Ox 95 03/24/18 14:42 Intake & Output 03/23/18 03/24/18 03/24/18 18:59 06:59 18:59 Intake Total 800 Balance 800 Intake: IV 800 Sodium Chloride 0.9% 1, 800 000 ml @ 100 mls/hr IV . Q10H [facility] Rx#:[id number] Other: Voiding Method Toilet Toilet Diaper Diaper # Voids 3 2 4 # Bowel Movements 1 1 - Exam GENERAL: The patient is alert and oriented x3, no acute distress. HEENT: Pupils are round and equally reacting to light. EOMI. No scleral icterus. No conjunctival pallor. Normocephalic, atraumatic. CARDIOVASCULAR: S1 and S2 present. Regular, No murmurs, rubs, or gallops. PULMONARY: Significantly improved bilaterally expiratory wheezing-diffuse ABDOMEN: Soft, nontender, nondistended, normoactive bowel sounds. No palpable organomegaly. MUSCULOSKELETAL: No joint swelling or deformity. EXTREMITIES: No cyanosis, clubbing, or pedal edema. NEUROLOGICAL: Gross neurological examination did not reveal any focal deficits. SKIN: No rashes. - Labs CBC & Chem 7: 03/23/18 09:59 03/23/18 09:59 Labs: Abnormal Lab Results - Last 24 Hours (Table) 03/23/18 03/24/18 03/24/18 Range/Units 20:41 06:59 12:06 POC Glucose (mg/dL) 218 H 174 H 158 H (75-99) mg/dL 03/24/18 Range/Units 16:51 POC Glucose (mg/dL) 282 H (75-99) mg/dL Microbiology - Last 24 Hours (Table) 03/19/18 14:41 Blood Culture - Preliminary Blood No Growth after 120 hours Assessment and Plan Assessment: Acute hypercapnic respiratory failure: Secondary to COPD exacerbation with purulent tracheobronchitis -Type 2 diabetes mellitus uncontrolled elevated blood sugars due to systemic steroids. -Lactic acidosis secondary to mostly diuretic therapy, along with the diarrhea, C. diff ruled out, stable -Coronary artery disease -hypertension -Hyperlipidemia Coronary artery disease -Anxiety -Depression Plan: Continue on current medication regime ,monitoring and symptomatic treatment. Maintain nebulized bronchodilators, empiric antibiotics, steroids. Increase ambulation as tolerated. Close monitoring of blood sugars. Discharge planning in progress for tomorrow pending pulmonary clearance The impression and plan of care has been dictated as directed. : I performed a history and examination of this patient, discussed the same with the dictator. I agree with the dictator's note ,documented as a scribe. Any additional findings or plans will be noted.
[2018-03-24 20:44] LABS: Glucose,Whole Blood 245 mg/dL (75-99)
[2018-03-25] MEDS: SODIUM CHLORIDE 0.9% 1,000 ML IV SCH (01:48)
[2018-03-25 06:57] LABS: Glucose,Whole Blood 183 mg/dL (75-99)
[2018-03-25] MEDS: ALBUTEROL NEBULIZED 2.5 MG/3 ML INHALATION SCH ×2 (06:58→10:59)
[2018-03-25] MEDS: SYMBICORT 160-4.5 MCG INHALER INHALATION SCH (06:58)
[2018-03-25] MEDS: INSULIN ASPART 100 UNIT/ML 1 ML 10 ML VIAL SQ SCH ×4 (07:39→12:13)
[2018-03-25] MEDS: HYDROcodone/APAP 7.5-325MG 1 EACH TAB PO PRN ×2 (07:40→15:43)
[2018-03-25] MEDS: FAMOTIDINE 20 MG TAB PO SCH (07:40)
[2018-03-25] MEDS: predniSONE 20 MG TAB PO SCH (07:40)
[2018-03-25] MEDS: AMOXIC-POT CLAV 875-125MG 1 EACH TAB PO SCH (07:40)
[2018-03-25] MEDS: DULoxetine HCL 30 MG CAPSULE.DR PO SCH (07:40)
[2018-03-25] MEDS: HEPARIN SODIUM,PORCINE 5,000 UNIT/ML 1 ML VIAL SQ SCH (07:41)
[2018-03-25 09:32] LABS: Basophils % (A) 0 %; Eosinophils # (A) 0.1 k/uL (0-0.7); Eosinophils % (A) 1 %; HCT 39.3 % (34.0-46.0); HGB 13.1 gm/dL (11.4-16.0); Lymphocytes # (A) 1.4 k/uL (1.0-4.8); Lymphocytes % (A) 13 %; MCH 28.8 pg (25.0-35.0); MCHC 33.4 g/dL (31.0-37.0); MCV 86.4 fL (80.0-100.0); Mean Platelet Volume 7.9; Monocytes # (A) 0.5 k/uL (0-1.0); Monocytes % (A) 5 %; Neutrophils % (A) 79 %; Platelet Count 119 k/uL (150-450); RBC 4.55 m/uL (3.80-5.40); RDW 12.9 % (11.5-15.5); WBC 10.2 k/uL (3.8-10.6)
[2018-03-25 09:39] LABS: Anion Gap 6 mmol/L; Blood Urea Nitrogen 17 mg/dL (7-17); Calcium 8.9 mg/dL (8.4-10.2); Carbon Dioxide 28 mmol/L (22-30); Chloride 104 mmol/L (98-107); Glucose 144 mg/dL (74-99); Potassium 3.3 mmol/L (3.5-5.1); Sodium 138 mmol/L (137-145)
[2018-03-25 11:28] LABS: Glucose,Whole Blood 155 mg/dL (75-99)
[2018-03-25] MEDS ORDERED: Potassium Replacement Protocol 1 EACH MISC MISCELLANE PRN (11:46)
[2018-03-25 12:55] VITALS: BMI 32.5
[2018-03-25 15:01] VITALS: BP 147/79; PULSE 82; RESP 20; TEMP 97.5
--- NOTE | 2018-03-25 19:09 | P.DS ---
Providers Date of admission: 03/19/18 17:31 Expected date of discharge: 03/25/18 Attending physician: Oksana Rodriguez Consults: 03/19/18 16:47 Consult Physician Stat Consulting Provider: Jaylen Oro Consult Reason/Comments: COPD exacerbation Do you want consulting provider notified?: Yes 03/20/18 11:56 Consult Physician Routine Consulting Provider: Jagjit Grant Consult Reason/Comments: shortness of breath Do you want consulting provider notified?: Already Contacted [facility] Course: Final Diagnoses: -Acute hypercapnic respiratory failure: Secondary to COPD exacerbation with purulent tracheobronchitis -Type 2 diabetes mellitus uncontrolled elevated blood sugars due to systemic steroids. -Lactic acidosis secondary to mostly diuretic therapy, along with the diarrhea, C. diff ruled out, stable -Coronary artery disease -hypertension -Hyperlipidemia Coronary artery disease -Anxiety -Depression -Steroid-induced paranoid Hospital course:Patient is admitted for presumed examination patient the is clinically doing well at this time patient still has some expiratory wheezing patient blood sugars are high because of the systemic steroids which I'm cutting it down. As of her continued wheeze and significant changes in her insulin regimen along with the changes in prednisone patient will be monitored one more night. Probably can be discharged tomorrow patient is still bit short of breath 03/22/2018 Patient has lactic acidosis from my diuretic therapy which will be discontinued ration to 80s on Augmentin no evidence of pneumonia patient does have tracheobronchitis severe patient wheezing is bit worse today patient is bit short of breath and feels like she is on down this is probably because of intravascular depletion and lactic acidosis patient will be continued on IV fluids until tomorrow and I'm expecting her blood sugars to go down as we change it had to oral prednisone 03/23/2018 Her lactic acidosis improved which is probably secondary to dietary along with diuretic therapy diarrhea resolved at this time. Patient's C. diff is negative. Patient overall clinically doing well but still has significant wheezing on exam and still bit short of breath. 03/24/2018 maintained on gentle IV fluid hydration, nebulized bronchodilators, Augmentin, steroids. Wheezing significantly improved, mild bronchospasms. Loose nonproductive cough. Maintaining O2 sats of mid 90s on 2 L nasal cannula. Afebrile. 03/25/2018 steroids discontinued as patient exhibiting some paranoia. Significant clinical improvement. Cleared for discharge by all consults.Patient being discharged home in a stable condition with guarded prognosis. - Exam GENERAL: The patient is alert and oriented x3, no acute distress. CARDIOVASCULAR: S1 and S2 present. Regular, No murmurs, rubs, or gallops. PULMONARY: Bilateral bases diminished occasional diffuse bilateral expiratory wheezing-diffuse ABDOMEN: Soft, nontender, nondistended, normoactive bowel sounds. No palpable organomegaly. NEUROLOGICAL: Gross neurological examination did not reveal any focal deficits. The impression and plan of care has been dictated as directed. : I performed a history and examination of this patient, discussed the same with the dictator. I agree with the dictator's note ,documented as a scribe. Any additional findings or plans will be noted. Time taken: 35 minutes Patient Condition at Discharge: Stable Plan - Discharge Summary Discharge Rx Participant: No New Discharge Prescriptions: New Amoxic-Pot Clav 875-125Mg [Augmentin 875-125] 1 each PO Q12HR #10 tab Continue Pregabalin [Lyrica] 200 mg PO TID Dicyclomine [Bentyl] 10 mg PO QID Pramipexole Di-HCl [Mirapex] 1.5 mg PO HS Pantoprazole Sodium [Protonix] 40 mg PO DAILY Atorvastatin [Lipitor] 80 mg PO HS Baclofen 10 mg PO BID Lidocaine 5% Patch [Lidoderm 5% Patch] 1 patch TOPICAL DAILY Montelukast [Singulair] 10 mg PO HS INSULIN LISPRO (For Pump) [humaLOG (For Pump)] See Protocol SQ-PUMP CONTINUOUS Escitalopram [Lexapro] 5 mg PO HS DULoxetine HCL [Cymbalta] 30 mg PO BID Clopidogrel Bisulfate [Plavix] 75 mg PO QAM Fluticasone/Salmeterol [Advair 250-50 Diskus] 1 puff INHALATION RT-BID Albuterol Nebulized [Ventolin Nebulized] 2.5 mg INHALATION RT-QID Modafinil [Provigil] 200 mg PO QAM Fenofibrate Nanocrystallized [Tricor] 145 mg PO DAILY Ergocalciferol (Vitamin D2) [Vitamin D2] 50,000 unit PO Q7D Isosorbide Mononitrate ER [Imdur] 30 mg PO DAILY Discontinued Lisinopril-Hctz 10-12.5 mg [Zestoretic 10-12.5] 1 tab PO DAILY Furosemide [Lasix] 20 mg PO DAILY Discharge Medication List Atorvastatin [Lipitor] 80 mg PO HS 03/21/14 [History] Baclofen 10 mg PO BID 03/21/14 [History] Dicyclomine [Bentyl] 10 mg PO QID 03/21/14 [History] Pantoprazole Sodium [Protonix] 40 mg PO DAILY 03/21/14 [History] Pramipexole Di-HCl [Mirapex] 1.5 mg PO HS 03/21/14 [History] Pregabalin [Lyrica] 200 mg PO TID 03/21/14 [History] Lidocaine 5% Patch [Lidoderm 5% Patch] 1 patch TOPICAL DAILY 03/09/15 [History] Montelukast [Singulair] 10 mg PO HS 04/11/15 [History] INSULIN LISPRO (For Pump) [humaLOG (For Pump)] See Protocol SQ-PUMP CONTINUOUS 04/18/17 [History] Clopidogrel Bisulfate [Plavix] 75 mg PO QAM 05/06/17 [History] DULoxetine HCL [Cymbalta] 30 mg PO BID 05/06/17 [History] Escitalopram [Lexapro] 5 mg PO HS 05/06/17 [History] Albuterol Nebulized [Ventolin Nebulized] 2.5 mg INHALATION RT-QID 06/05/17 [ History] Fluticasone/Salmeterol [Advair 250-50 Diskus] 1 puff INHALATION RT-BID 06/05/17 [History] Modafinil [Provigil] 200 mg PO QAM 06/05/17 [History] Ergocalciferol (Vitamin D2) [Vitamin D2] 50,000 unit PO Q7D 03/19/18 [History] Fenofibrate Nanocrystallized [Tricor] 145 mg PO DAILY 03/19/18 [History] Isosorbide Mononitrate ER [Imdur] 30 mg PO DAILY 03/19/18 [History] Amoxic-Pot Clav 875-125Mg [Augmentin 875-125] 1 each PO Q12HR #10 tab 03/25/18 [ Rx] Follow up Appointment(s)/Referral(s): Chris Caicedo DO [Primary Care Provider] - 03/28/18 2:20 pm Jaylen Oro MD [STAFF PHYSICIAN] - 2 Weeks Ambulatory/Diagnostic Orders: Complete Blood Count w/diff [LAB.AMB] Time Frame: 3 Days, Location: None Selected Activity/Diet/Wound Care/Special Instructions: Potassium supplemented perprotocol.Resume insulin pump, family & patient reports they have insulin for the pump DIet: consist. carb Discharge Disposition: HOME SELF-CARE
== END 2018-03-25 16:20 | disposition home or self-care (01) | DRG 190 ==
LOC: EC 14:07 → 3SCARD 17:31 → 4MS4W 03-21 17:47
PROVIDERS: ADMIT Internal Medicine; ATTEND Internal Medicine
DX: J44.0 Chronic obstructive pulmonary disease with (acute) lower respiratory infection (principal); J96.02 Acute respiratory failure with hypercapnia; J45.901 Unspecified asthma with (acute) exacerbation; E87.2 Acidosis; I69.351 Hemiplegia and hemiparesis following cerebral infarction affecting right dominant side; J44.1 Chronic obstructive pulmonary disease with (acute) exacerbation; D72.829 Elevated white blood cell count, unspecified; E11.65 Type 2 diabetes mellitus with hyperglycemia; E78.5 Hyperlipidemia, unspecified; F22 Delusional disorders; F32.9 Major depressive disorder, single episode, unspecified; F41.9 Anxiety disorder, unspecified; G47.419 Narcolepsy without cataplexy; K52.9 Noninfective gastroenteritis and colitis, unspecified; J20.9 Acute bronchitis, unspecified; I10 Essential (primary) hypertension; I25.10 Atherosclerotic heart disease of native coronary artery without angina pectoris; T38.0X5A Adverse effect of glucocorticoids and synthetic analogues, initial encounter; Z79.02 Long term (current) use of antithrombotics/antiplatelets; Z79.4 Long term (current) use of insulin; Z79.52 Long term (current) use of systemic steroids; Z79.899 Other long term (current) drug therapy; Z82.3 Family history of stroke; Z82.49 Family history of ischemic heart disease and other diseases of the circulatory system; Z83.2 Family history of diseases of the blood and blood-forming organs and certain disorders involving the immune mechanism; Z83.3 Family history of diabetes mellitus; Z87.01 Personal history of pneumonia (recurrent); Z87.891 Personal history of nicotine dependence; Z90.710 Acquired absence of both cervix and uterus; Z96.41 Presence of insulin pump (external) (internal); Z88.6 Allergy status to analgesic agent; Z88.5 Allergy status to narcotic agent; Z91.018 Allergy to other foods; Z98.42 Cataract extraction status, left eye; Z98.41 Cataract extraction status, right eye
CPT/HCPCS: 36415; 36600; 71046; 80048; 80053; 81001; 82550; 82553; 82805; 83036; 83605; 83735; 83880; 84484; 85025; 85027; 85610; 85730; 87040; 87324; 93005; 93306; 94640; 94760; 96361; 96374; 96375; 96376; 99285

== ENCOUNTER → 2018-04-18 | Outpatient (CLI) | payer MEDICARE, OTHER ==
--- NOTE | 2018-04-19 21:05 | MR ---
EXAMINATION TYPE: MR brain wo/w vincent wo DATE OF EXAM: 04/18/2018 COMPARISON: MR scan of the brain 05/07/2017. HISTORY: Neck pain, headaches TECHNIQUE: Multiplanar, multisequence images of the brain and brainstem and cervical spine is performed without and with IV contrast, utilizing 7 mL intravenous Gadavist . FINDINGS: There is diffuse cerebral cortical atrophy. There is no mass effect nor midline shift. There is no si gn of intracranial hemorrhage. There is no evidence of cortical infarct. There are a few scattered hi gh signal foci at the steen-white matter junction both cerebral hemispheres that measure up to 3 mm. T here is thinning of the corpus callosum. The brainstem is intact. There is no evidence of posterior f diego mass. There is no evidence of orbital mass. There is minimal maxillary sinus mucosal thickening. Contrast images show no pathologic enhancement. IMPRESSION: Cerebral atrophy. No acute intracranial abnormality. Minimal white matter changes consistent with sma ll vessel ischemia. No significant change of the brain compared to old exam. MR scan cervical spine Cervical vertebra have normal alignment.. There is mild narrowing of cervical disc spaces. There is m oderate posterior cervical disc herniation at C4-5. There is developmental large spinal canal and no significant spinal stenosis. Canal measures almost 8 mm at C4-5. Canal measures 8 mm at C6-7. Small d isc herniation on the left side at C6-7 is not significantly impinging on the neural elements. Cervic al spinal cord has normal signal pattern. There is no edema. Brainstem is intact. There is no cervica l spine compression fracture. There is no cervical paraspinal mass. I see no bony destructive process . IMPRESSION: Posterior disc bulging and herniation at C4-5 and C6-7 without significant spinal stenosi s. No fracture seen.
== END ==
LOC: RADMRIMAIN 19:05
PROVIDERS: ATTEND Family Medicine
DX: M50.221 Other cervical disc displacement at C4-C5 level (principal); G31.9 Degenerative disease of nervous system, unspecified; R90.89 Other abnormal findings on diagnostic imaging of central nervous system
CPT/HCPCS: 70553; 72141; A9585

== ENCOUNTER → 2018-05-05 | Outpatient (CLI) | payer MEDICARE, OTHER ==
[2018-05-05 12:49] VITALS: BP 126/85; PULSE 103; RESP 16; TEMP 98
--- NOTE | 2018-05-05 13:35 | P.CON ---
Consult Note - . Consult date: 05/05/18 Assessment/Plan:: History and Physical exam. aSira is a very pleasant 72-year-old female who presents to new patient to the [facility] pain clinic. She is a chief complaint of neck pain radiating pain into her left arm as well as low back pain. She had been under the care of Dr. Feliz however was discharged in the clinic because of noncompliance with bills. Saira has noted progressive unsteady gait over the last 3-4 months, she had a MRI of her brain done which did not show any intracranial pathology however did cervical spinal stenosis at C6-C7. She has in the past been treated with epidural steroid injections of the cervical spine as well as lumbar spine. She recalls having 6 epidural injections overall. Last one was over a year ago. She has not been evaluated by a orthopedic technology infusion specialist for s urgical recommendations. She has noted significant progression of weakness in her upper extremities as well as gait instability. She states that she walks as if "she is drunk". She also been prescribed both [place] and tramadol. She is also taking Lyrica 200 mg. She does not describe any complications or side effects with the medication. She states that the [place] terminal not "strong enough". She denies any bowel or bladder incontinence. She is never had any cervical or lumbar spine surgeries in the past. In addition to above, 13-point review of systems is also negative for chest pain, shortness of breath, changes in vision, changes in hearing, new onset weakness, abdominal pain, diarrhea, extreme fatigue, malaise, fever, skin changes, homicidal or suicidal ideation, or bowel or bladder incontinence. Vital Signs: Reviewed in EMR Gen: WDWN, AAOx3, NAD, obese HEENT: NCAT, EOMI, hearing grossly normal Pulm: resp unlabored Abd: soft, NT, ND Neck: supple, trachea midline Cervical spine motor exam: Significant weakness noted with extension and flexion at the elbow, reduced bilateral hand/intrinsic muscle strength. 3+ left brachial radialis as well as bicep tendon reflexes. 3+ left patellar reflex. Positive Juan Jose sign, positive Lhermitte sign with radiating pain into the left lower extremity. Neuro: CN II-XII grossly intact, muscle strength lower extremities reduced. Gait: Wobbly gait, and was with assistance 4 point walker. Imaging: Reviewed in EMR Assessment: 1. Cervical spinal stenosis 2. Cervical radiculopathy with myelopathy 3. Lumbar spondylosis without myelopathy 4. Lumbar radiculopathy. Plan: 1. Explanation: Opioid and psychological risk scores were reviewed. Diagnoses, prognoses, and multiple treatment options including but not limited to physical therapy, interventional therapies, adjuvant medical therapies, narcotic medication therapies, and surgery were discussed with the patient and all questions were answered to the patient's satisfaction. 2. Opioid agreement: Patient has previously signed narcotic agreement, and was orally counseled to not overuse, abuse, divert, or cell medications, and to take them as prescribed by only 1 healthcare provider. The patient was also counseled to store opioid medications in a safe and preferably locked location. Patient was also counseled against driving or operating heavy equipment while using narcotic medications and also to not use alcohol or any illicit or recreational drugs. The patient verbalized understanding that lack of compliance with any of the above and likely result in failure to renew narcotic prescriptions, possible discharge from the clinic, and possible legal ramifications thereafter if indicated. 3. Counseling: The patient was counseled extensively on BODY MASS INDEX, EXERCISE. Specifically, the patient was instructed regarding the importance of weight control, and exercise in the context of both chronic pain and overall health. 4. Procedures: Cervical epidural steroid injection at the left C7-T1 interspace. 5. Consultations: Refer patient to Dr. Plaza for evaluation and surgical recommendations. Concern is patient has some degree of cervical myelopathy which have led to her unsteady gait as well as weakness in upper and lower extremity's. 6. Investigations: Maps reviewed and appropriate with patient's history. UDS will be done this visit. 7. Medications: We'll discontinue [place] and tramadol. We'll write for Percocet 5 mg/325 mg twice daily. We discussed that opiate prescribing only be on a short-term basis until other modalities to treat her pain are done. I described the risks and benefits of taking opiates, with overconsumption of medication potentially leading to . Patient understands that she is not to get medications from any other provider. She signed a narcotic contract as well as a lets talk. 8. Disposition: Follow up for procedure. PQRS measures: 1-Patient's medications are documented in the chart. 2-Tobacco use is negative 3-Patient has not had a pneumococcal vaccine. 4-Advanced care planning discussed, patient unable to give. 5-Opioid contract signed with the patient. 6-Pain positive, follow-up visit or procedure scheduled 7-Patient's blood pressure measured and documented, and patient will follow up with the primary care due to hypertension. 8-Patient's weight was measured, and body mass index ABOVE the normal limits, and counseling was done. Patient instructed to follow up with PCP. 9-Patient WAS NOT identified as an unhealthy alcohol user.
== END ==
LOC: PNWHC3 12:21
PROVIDERS: ATTEND Anesthesiology
DX: M48.02 Spinal stenosis, cervical region (principal); M54.12 Radiculopathy, cervical region; M47.26 Other spondylosis with radiculopathy, lumbar region
CPT/HCPCS: 80307; G0482; G0463; 99211

== ENCOUNTER → 2018-05-29 | Outpatient (CLI) | payer MEDICARE, OTHER ==
[2018-05-29 20:21] LABS: Albumin 4.8 g/dL (3.80-4.90); Albumin/Globulin Ratio 3.43 (1.60-3.17); Anion Gap 10.5 mmol/L (4.00-12.00); Calcium 9.7 mg/dL (8.7-10.3); Carbon Dioxide 25.5 mmol/L (21.6-31.8); Globulin 1.4 g/dL (1.6-3.3); LDL Cholesterol,Calculated 112.8 mg/dL (0.0-131.0); Potassium 3.8 mmol/L (3.5-5.5); Total Bilirubin 0.9 mg/dL (0.2-1.2); Total Protein 6.2 g/dL (6.2-8.2); VLDL Calculation 54.2 mg/dL (5.00-40.00)
[2018-05-29 21:22] LABS: Hemoglobin A1C 7.6 % (4.0-6.0)
== END | disposition home or self-care (01) ==
LOC: LABWHC1 14:35
PROVIDERS: ATTEND Internal Medicine Endocrinology, Diabetes & Metabolism
DX: E11.65 Type 2 diabetes mellitus with hyperglycemia (principal)
CPT/HCPCS: 36415; 80053; 80061; 82043; 82570; 83036; 84443

== ENCOUNTER 2018-07-10 11:15 | Inpatient (IN) | payer MEDICARE, OTHER ==
[2018-07-10] MEDS ORDERED: IPRATROPIUM-ALBUTEROL 3 ML NEB INHALATION STA ×2 (11:56→15:11)
[2018-07-10 12:09] LABS: ALT 13 U/L (9-52); AST 15 U/L (14-36); Albumin 3.7 g/dL (3.5-5.0); Alkaline Phosphatase 124 U/L (38-126); Anion Gap 10 mmol/L; Blood Urea Nitrogen 13 mg/dL (7-17); Calcium 9.5 mg/dL (8.4-10.2); Carbon Dioxide 24 mmol/L (22-30); Chloride 102 mmol/L (98-107); Creatine Kinase 37 U/L (30-135); Glucose 319 mg/dL (74-99); Magnesium 1.4 mg/dL (1.6-2.3); Potassium 3.4 mmol/L (3.5-5.1); Sodium 136 mmol/L (137-145); Total Bilirubin 0.7 mg/dL (0.2-1.3); Total Protein 6.2 g/dL (6.3-8.2)
--- NOTE | 2018-07-10 12:11 | ED ---
Syncope HPI - General Chief Complaint: Syncope Stated Complaint: syncope/SOB post op Time Seen by Provider: 07/10/18 11:26 Source: patient, family, RN notes reviewed Mode of arrival: wheelchair Limitations: no limitations - History of Present Illness Initial Comments: This is a 72-year-old female with a history of multiple medical issues who is been having several days of cough who presents today because of coughing and having 2 syncopal episodes associated with a cough. Also of note she had a cervical fusion done on the seventh of this month at [facility] she had C4 5 6 and 7 fused. She complains today shortness of breath refractory to her home medications no fevers chills or sweats no overt chest pain she complains of right shoulder and right lateral neck pain he has of a fall she did fall her face she states during one of the episodes. Per her when she would pass out was brief. She had no palpitations or other complaints of other issues it was again associated with a cough. She's had a creamy white phlegm production. No other modifying factors MD Complaint: loss of consciousness, other - Related Data Home Medications Medication Instructions Recorded Confirmed Atorvastatin [Lipitor] 80 mg PO HS 03/21/14 07/10/18 Baclofen 10 mg PO BID 03/21/14 07/10/18 Dicyclomine [Bentyl] 10 mg PO QID 03/21/14 07/10/18 Pantoprazole Sodium [Protonix] 40 mg PO DAILY 03/21/14 07/10/18 Pramipexole Di-HCl [Mirapex] 1 mg PO HS 03/21/14 07/10/18 Pregabalin [Lyrica] 200 mg PO TID 03/21/14 07/10/18 Lidocaine 5% Patch [Lidoderm 5% 1 patch TOPICAL DAILY 03/09/15 07/10/18 Patch] Montelukast [Singulair] 10 mg PO HS 04/11/15 07/10/18 DULoxetine HCL [Cymbalta] 30 mg PO DAILY 05/06/17 07/10/18 Escitalopram [Lexapro] 5 mg PO HS 05/06/17 07/10/18 Albuterol Nebulized [Ventolin 2.5 mg INHALATION RT-QID 06/05/17 07/10/18 Nebulized] Fluticasone/Salmeterol [Advair 1 puff INHALATION RT-BID 06/05/17 07/10/18 250-50 Diskus] Modafinil [Provigil] 200 mg PO QAM 06/05/17 07/10/18 Ergocalciferol (Vitamin D2) 50,000 unit PO MO 03/19/18 07/10/18 [Vitamin D2] Fenofibrate Nanocrystallized 145 mg PO DAILY 03/19/18 07/10/18 [Tricor] Isosorbide Mononitrate ER [Imdur] 30 mg PO DAILY 03/19/18 07/10/18 Albuterol Sulfate [Proair Hfa] 2 puff INHALATION RT-Q6H PRN 07/10/18 07/10/18 Benzonatate [Benzonatate Perle] 200 mg PO TID PRN 07/10/18 07/10/18 Lisinopril-Hctz 10-12.5 mg 1 tab PO DAILY 07/10/18 07/10/18 [Zestoretic 10-12.5] Niacin 500 mg PO DAILY 07/10/18 07/10/18 Sennosides-Docusate Sodium 1 tab PO BID 07/10/18 07/10/18 [Senokot-S] clonazePAM 0.5 mg PO HS PRN 07/10/18 07/10/18 oxyCODONE-APAP 5-325MG [Percocet 1 tab PO BID PRN 07/10/18 07/10/18 5-325 mg] Allergies Allergy/AdvReac Type Severity Reaction Status Date / Time aspirin Allergy Swelling Verified 07/10/18 11:54 ibuprofen Allergy Swelling Verified 07/10/18 11:54 ipratropium bromide Allergy Swelling Verified 07/10/18 11:54 [From Atrovent] meperidine HCl [From Demerol] Allergy Rash/Hives Verified 07/10/18 11:54 nickel Allergy Unknown Verified 07/10/18 11:54 hydromorphone HCl AdvReac Nausea & Verified 07/10/18 11:54 [From Dilaudid] Vomiting metformin AdvReac Unknown Verified 07/10/18 11:54 morphine AdvReac Vomiting Verified 07/10/18 11:54 trazodone AdvReac Weakness Verified 07/10/18 11:54 zolpidem tartrate AdvReac Hallucinati Verified 07/10/18 11:54 [From Anniaien] ons MSG Allergy Rash/Hives Uncoded 05/05/18 12:37 Review of Systems ROS Statement: Those systems with pertinent positive or pertinent negative responses have been documented in the HPI. ROS Other: All systems not noted in ROS Statement are negative. Past Medical History Past Medical History: Asthma, Coronary Artery Disease (CAD), COPD, CVA/TIA, Diabetes Mellitus, Hyperlipidemia, Hypertension, Pneumonia Additional Past Medical History / Comment(s): rt side dominant. cva affected rt side pt state regained most strength to rt arm/hand but rt leg still weak. , uses walker/cane short distance and walker for long distance, r/hip. 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 Rt lumpectomy - neg, D&C.colonosocpy/egd. neck surgery Past Anesthesia/Blood Transfusion Reactions: No Reported Reaction Past Psychological History: Anxiety, Depression Smoking Status: Never smoker Past Alcohol Use History: None Reported Past Drug Use History: None Reported - Past Family History Mother Family Medical History: Hyperlipidemia, Hypertension Additional Family Medical History / Comment(s): ANEMIA Father Family Medical History: Cancer, Diabetes Mellitus Additional Family Medical History / Comment(s): Stroke General Exam - General Exam Comments Initial Comments: Physical well-developed asthenic appearing female who is awake alert oriented x3 she does have a cervical collar in place she is coughing with audible wheezing Limitations: no limitations General appearance: alert, anxious, in distress Head exam: Present: atraumatic, normocephalic, normal inspection Eye exam: Present: normal appearance, PERRL, EOMI. Absent: scleral icterus, conjunctival injection, periorbital swelling ENT exam: Present: mucous membranes dry Neck exam: Present: normal inspection, other (No stridor JVD or bruits cervical collar in place no spinous process tenderness or some mild tenderness palpation over the right lateral trapezius musculature and right shoulder). Absent: tenderness, meningismus, lymphadenopathy Respiratory exam: Present: wheezes, accessory muscle use, decreased breath sounds. Absent: respiratory distress, rales, rhonchi, stridor Cardiovascular Exam: Present: regular rate, normal rhythm, normal heart sounds. Absent: systolic murmur, diastolic murmur, rubs, gallop, clicks GI/Abdominal exam: Present: soft, normal bowel sounds. Absent: distended, tenderness, guarding, rebound, rigid Extremities exam: Present: normal inspection, full ROM, tenderness (I did fill the right shoulder before meals joint area but no step-off or crepitation or gross deformity.), normal capillary refill. Absent: pedal edema, joint swelling, calf tenderness Back exam: Present: normal inspection Neurological exam: Present: alert, oriented X3, CN II-XII intact Psychiatric exam: Present: normal affect, normal mood Skin exam: Present: warm, dry, intact, normal color. Absent: rash Course Vital Signs 07/10/18 07/10/18 07/10/18 11:20 12:50 12:59 Temperature 98.4 F Pulse Rate 96 90 90 Respiratory 26 H Rate Blood Pressure 107/72 O2 Sat by Pulse 91 L Oximetry - Reevaluation(s) Reevaluation #1: 07/10/18 14:59 Reevaluation patient several occasions revealed minimal improvement in her breathing. He still had diffuse wheezing though she clinically feel better. EKG Findings - EKG Results: EKG: interpreted by ERMD, sinus rhythm (Normal sinus rhythm 86. Interval 164 QRS duration 82 QT since QTC 362/433 low-voltage QRS no acute ST-T wave changes) Medical Decision Making - Medical Decision Making I did discuss [employer] the patient family as well as with Dr. Lieberman who did come the emergency department to see the patient patient will be admitted for treatment of COPD. - Lab Data Result diagrams: 07/10/18 11:44 07/10/18 11:44 Lab Results 07/10/18 07/10/18 07/10/18 Range/Units 11:44 11:44 11:44 WBC 10.7 H (3.8-10.6) k/uL RBC 4.13 (3.80-5.40) m/uL Hgb 11.8 (11.4-16.0) gm/dL Hct 34.7 (34.0-46.0) % MCV 84.0 (80.0-100.0) fL MCH 28.7 (25.0-35.0) pg MCHC 34.1 (31.0-37.0) g/dL RDW 14.6 (11.5-15.5) % Plt Count 292 (150-450) k/uL Neutrophils % 87 % Lymphocytes % 7 % Monocytes % 4 % Eosinophils % 2 % Basophils % 1 % Neutrophils # 9.2 H (1.3-7.7) k/uL Lymphocytes # 0.8 L (1.0-4.8) k/uL Monocytes # 0.4 (0-1.0) k/uL Eosinophils # 0.2 (0-0.7) k/uL Basophils # 0.1 (0-0.2) k/uL Poikilocytosis Slight PT 10.0 (9.0-12.0) sec INR 0.9 (<1.2) APTT 21.2 L (22.0-30.0) sec Sodium 136 L (137-145) mmol/L Potassium 3.4 L (3.5-5.1) mmol/L Chloride 102 (98-107) mmol/L Carbon Dioxide 24 (22-30) mmol/L Anion Gap 10 mmol/L BUN 13 (7-17) mg/dL Creatinine 0.46 L (0.52-1.04) mg/dL Est GFR (CKD-EPI)AfAm >90 (>60 ml/min/1.73 sqM) Est GFR (CKD-EPI)NonAf >90 (>60 ml/min/1.73 sqM) Glucose 319 H (74-99) mg/dL Calcium 9.5 (8.4-10.2) mg/dL Magnesium 1.4 L (1.6-2.3) mg/dL Total Bilirubin 0.7 (0.2-1.3) mg/dL AST 15 (14-36) U/L ALT 13 (9-52) U/L Alkaline Phosphatase 124 (38-126) U/L Creatine Kinase 37 (30-135) U/L Troponin I (0.000-0.034) ng/mL Total Protein 6.2 L (6.3-8.2) g/dL Albumin 3.7 (3.5-5.0) g/dL 07/10/18 Range/Units 11:44 WBC (3.8-10.6) k/uL RBC (3.80-5.40) m/uL Hgb (11.4-16.0) gm/dL Hct (34.0-46.0) % MCV (80.0-100.0) fL MCH (25.0-35.0) pg MCHC (31.0-37.0) g/dL RDW (11.5-15.5) % Plt Count (150-450) k/uL Neutrophils % % Lymphocytes % % Monocytes % % Eosinophils % % Basophils % % Neutrophils # (1.3-7.7) k/uL Lymphocytes # (1.0-4.8) k/uL Monocytes # (0-1.0) k/uL Eosinophils # (0-0.7) k/uL Basophils # (0-0.2) k/uL Poikilocytosis PT (9.0-12.0) sec INR (<1.2) APTT (22.0-30.0) sec Sodium (137-145) mmol/L Potassium (3.5-5.1) mmol/L Chloride (98-107) mmol/L Carbon Dioxide (22-30) mmol/L Anion Gap mmol/L BUN (7-17) mg/dL Creatinine (0.52-1.04) mg/dL Est GFR (CKD-EPI)AfAm (>60 ml/min/1.73 sqM) Est GFR (CKD-EPI)NonAf (>60 ml/min/1.73 sqM) Glucose (74-99) mg/dL Calcium (8.4-10.2) mg/dL Magnesium (1.6-2.3) mg/dL Total Bilirubin (0.2-1.3) mg/dL AST (14-36) U/L ALT (9-52) U/L Alkaline Phosphatase (38-126) U/L Creatine Kinase (30-135) U/L Troponin I <0.012 (0.000-0.034) ng/mL Total Protein (6.3-8.2) g/dL Albumin (3.5-5.0) g/dL - Radiology Data Radiology results: report reviewed (I did review the imaging and report no definite acute findings.), image reviewed Critical Care Time Critical Care Time: Yes Critical Care Time: 31 minutes of critical care time which includes initial presentation with history physical labs x-rays multiple re-evaluations patient response to therapy discuss with the patient family regarding findings discussed with the admitting physician admission orders neck mentation the above Disposition Clinical Impression: COPD with acute exacerbation, Cough syncope syndrome, History of fusion of cervical spine Disposition: ADMITTED IP TO THIS HOSP Condition: Fair Referrals: Chris Caicedo DO [Primary Care Provider] - 1-2 days
[2018-07-10 12:15] LABS: Basophils # (A) 0.1 k/uL (0-0.2); Basophils % (A) 1 %; Eosinophils # (A) 0.2 k/uL (0-0.7); Eosinophils % (A) 2 %; HCT 34.7 % (34.0-46.0); HGB 11.8 gm/dL (11.4-16.0); Lymphocytes # (A) 0.8 k/uL (1.0-4.8); Lymphocytes % (A) 7 %; MCH 28.7 pg (25.0-35.0); MCHC 34.1 g/dL (31.0-37.0); Mean Platelet Volume 7.6; Monocytes # (A) 0.4 k/uL (0-1.0); Monocytes % (A) 4 %; Neutrophils # (A) 9.2 k/uL (1.3-7.7); Neutrophils % (A) 87 %; Platelet Count 292 k/uL (150-450); Poikilocytosis Slight; RBC 4.13 m/uL (3.80-5.40); RDW 14.6 % (11.5-15.5); WBC 10.7 k/uL (3.8-10.6)
[2018-07-10 12:21] LABS: INR 0.9 (<1.2)
[2018-07-10 12:26] LABS: Partial Thromboplastin Time 21.2 sec (22.0-30.0)
[2018-07-10] MEDS ORDERED: MAGNESIUM SULFATE-D5W PMX 1 GM in DEXTROSE/WATER 1 100ML.BAG IVPB ONE ×2 (13:22→15:11)
--- NOTE | 2018-07-10 13:28 | CT ---
EXAMINATION TYPE: CT brain soniaine wo con DATE OF EXAM: 07/10/2018 COMPARISON: 11/27/2017 HISTORY: Recent fall. History of cspine surgery 06-24-18. CT DLP: 1292 mGycm, Automated exposure control for dose reduction was used. CONTRAST: Patient injected with 0 mL of Isovue 300. CT of the brain is performed utilizing 3 mm thick sections through the posterior fossa and 3 mm thick sections through the remaining calvarium. Study is performed within 24 hours of arrival to the hospital. No abnormal hyperdensity is present to suggest an acute intracranial hemorrhage. No mass lesion is evident. No acute infarcts are evident. Ventricles and sulci are appropriate for the patient age. There is some mucosal thickening through mastoid air cells. Some mucosal thickenings within ethmoid a ir cells IMPRESSIONS: 1. No acute intracranial process. CT cervical spine. COMPARISON: None CT of the cervical spine is performed in the axial plane at 2 mm thick sections. Reconstructed image s in the coronal, and sagittal plane are reviewed on the computer. No acute fractures are evident. Vertebral body alignment is normal. There is anterior cervical fusion C4-C7. Disc spacers are through these levels. Remaining discs appea r preserved. Alignment is normal. Prevertebral space appears within normal limits. Vertebral body heights are preserved. No spinal canal stenosis is evident. No neural foraminal stenosis is evident. IMPRESSIONS: 1. No acute posttraumatic changes cervical spine. 2. Postsurgical anterior fusion C4-C7.
--- NOTE | 2018-07-10 14:25 | XR ---
EXAMINATION TYPE: XR chest 2V DATE OF EXAM: 07/10/2018 COMPARISON: Prior chest x-ray 03/23/2018 HISTORY: Syncope, shortness of breath TECHNIQUE: Frontal and lateral views of the chest are obtained. FINDINGS: There is improvement in aeration as compared to prior exam, the interstitium is less consp icuous. Heart size is thought to be enlarged although patient is rotated. Postop changes are noted in the cervical spine. There is overlying artifact. No evident airspace disease, pneumothorax, or pleur al effusion. There is bronchial wall thickening. IMPRESSION: Stable cardiomegaly. Improvement in patient's volume status. Correlate for reactive airw ays disease, bronchitis.
--- NOTE | 2018-07-10 14:39 | XR ---
Right shoulder HISTORY: Pain in right shoulder Right shoulder submitted on 4 views Mild acromioclavicular joint arthropathy noted. Right lung apex as visualized is normal. Bone mineral ization is reduced. Alignment is maintained. Joint space at the glenohumeral joint is normal. IMPRESSION: No fracture or dislocation.
--- NOTE | 2018-07-10 14:40 | XR ---
Left shoulder HISTORY: Right shoulder pain and shortness of breath 3 views of the left shoulder Acromioclavicular joint shows arthropathy. Bone mineralization is reduced. Right lung apex as visuali zed is within normal limits. There is no fracture or dislocation. IMPRESSION: Acromioclavicular joint arthropathy and osteopenia. The left shoulder was imaged inapprop riately, no charge to the patient.
[2018-07-10] MEDS ORDERED: clonazePAM 0.5 MG TAB PO PRN (15:09)
--- NOTE | 2018-07-10 15:12 | ED ---
Medical Decision Making - Lab Data Result diagrams: 07/10/18 11:44 07/10/18 11:44 Lab Results 07/10/18 07/10/18 07/10/18 Range/Units 11:44 11:44 11:44 WBC 10.7 H (3.8-10.6) k/uL RBC 4.13 (3.80-5.40) m/uL Hgb 11.8 (11.4-16.0) gm/dL Hct 34.7 (34.0-46.0) % MCV 84.0 (80.0-100.0) fL MCH 28.7 (25.0-35.0) pg MCHC 34.1 (31.0-37.0) g/dL RDW 14.6 (11.5-15.5) % Plt Count 292 (150-450) k/uL Neutrophils % 87 % Lymphocytes % 7 % Monocytes % 4 % Eosinophils % 2 % Basophils % 1 % Neutrophils # 9.2 H (1.3-7.7) k/uL Lymphocytes # 0.8 L (1.0-4.8) k/uL Monocytes # 0.4 (0-1.0) k/uL Eosinophils # 0.2 (0-0.7) k/uL Basophils # 0.1 (0-0.2) k/uL Poikilocytosis Slight PT 10.0 (9.0-12.0) sec INR 0.9 (<1.2) APTT 21.2 L (22.0-30.0) sec Sodium 136 L (137-145) mmol/L Potassium 3.4 L (3.5-5.1) mmol/L Chloride 102 (98-107) mmol/L Carbon Dioxide 24 (22-30) mmol/L Anion Gap 10 mmol/L BUN 13 (7-17) mg/dL Creatinine 0.46 L (0.52-1.04) mg/dL Est GFR (CKD-EPI)AfAm >90 (>60 ml/min/1.73 sqM) Est GFR (CKD-EPI)NonAf >90 (>60 ml/min/1.73 sqM) Glucose 319 H (74-99) mg/dL Calcium 9.5 (8.4-10.2) mg/dL Magnesium 1.4 L (1.6-2.3) mg/dL Total Bilirubin 0.7 (0.2-1.3) mg/dL AST 15 (14-36) U/L ALT 13 (9-52) U/L Alkaline Phosphatase 124 (38-126) U/L Creatine Kinase 37 (30-135) U/L Troponin I (0.000-0.034) ng/mL Total Protein 6.2 L (6.3-8.2) g/dL Albumin 3.7 (3.5-5.0) g/dL 07/10/18 Range/Units 11:44 WBC (3.8-10.6) k/uL RBC (3.80-5.40) m/uL Hgb (11.4-16.0) gm/dL Hct (34.0-46.0) % MCV (80.0-100.0) fL MCH (25.0-35.0) pg MCHC (31.0-37.0) g/dL RDW (11.5-15.5) % Plt Count (150-450) k/uL Neutrophils % % Lymphocytes % % Monocytes % % Eosinophils % % Basophils % % Neutrophils # (1.3-7.7) k/uL Lymphocytes # (1.0-4.8) k/uL Monocytes # (0-1.0) k/uL Eosinophils # (0-0.7) k/uL Basophils # (0-0.2) k/uL Poikilocytosis PT (9.0-12.0) sec INR (<1.2) APTT (22.0-30.0) sec Sodium (137-145) mmol/L Potassium (3.5-5.1) mmol/L Chloride (98-107) mmol/L Carbon Dioxide (22-30) mmol/L Anion Gap mmol/L BUN (7-17) mg/dL Creatinine (0.52-1.04) mg/dL Est GFR (CKD-EPI)AfAm (>60 ml/min/1.73 sqM) Est GFR (CKD-EPI)NonAf (>60 ml/min/1.73 sqM) Glucose (74-99) mg/dL Calcium (8.4-10.2) mg/dL Magnesium (1.6-2.3) mg/dL Total Bilirubin (0.2-1.3) mg/dL AST (14-36) U/L ALT (9-52) U/L Alkaline Phosphatase (38-126) U/L Creatine Kinase (30-135) U/L Troponin I <0.012 (0.000-0.034) ng/mL Total Protein (6.3-8.2) g/dL Albumin (3.5-5.0) g/dL Disposition Clinical Impression: COPD with acute exacerbation, Cough syncope syndrome, History of fusion of cervical spine, Hypomagnesemia syndrome, Adult respiratory distress syndrome Disposition: ADMITTED IP TO THIS HOSP Condition: Fair Referrals: Chris Caicedo DO [Primary Care Provider] - 1-2 days
[2018-07-10] MEDS: SODIUM CHLORIDE 0.9% 1,000 ML IV SCH (15:23)
[2018-07-10] MEDS: IPRATROPIUM-ALBUTEROL 3 ML NEB INHALATION SCH ×2 (16:26→19:59)
[2018-07-10] MEDS: DICYCLOMINE 10 MG CAP PO SCH ×2 (17:29→21:54)
[2018-07-10] MEDS: PREGABALIN 100 MG CAP PO SCH ×2 (17:30→21:54)
--- NOTE | 2018-07-10 17:56 | P.HPIM ---
History of Present Illness this is a 72 yo Female with past medical history of COPD, recent history of cervical spine fusion done on 06/24/2018 as per pt with at [facility] for long history of degenerative joint disease , she has hard col lar in place, presents because she passed out twice associated with sever coughing, pt and confirm to me she has history of COPD that follow up wiht although pt denies history of smoking cigarette in the past before, now presents with worsening dyspnea and cough with creamy phlegm for the last few days. she has no chest pain but she has right shoulder pain after she fell twice as above. vitals are stable, she is saturating 92%on room air. her WBC 10.7 K, Hb 11.8, platelets 292. sodium 136, potassium 1.4 , magnesium 1.4, creatinine 0.42, troponin less than 0.012. her right shoulder xray is negative for fracture or dislocation, left shoulder xray : acromiocalvicular arthropathy with steopenia , her brain CT : no acute process. Cervical CT: no fracture or dislocation , post surgical changes at C4- 7. CXR: no pneumonia, bronchitis. Review of Systems CONSTITUTIONAL: No fever, no malaise, no fatigue. HEENT: No recent visual problems or hearing problems. Denied any sore throat. CARDIOVASCULAR: no palpitations, no syncope. PULMONARY: no hemoptysis. GASTROINTESTINAL: No diarrhea, no nausea, no vomiting, no abdominal pain. Normoactive bowel sounds. NEUROLOGICAL: No headaches, no weakness, no numbness. HEMATOLOGICAL: Denies any bleeding or petechiae. GENITOURINARY: Denies any burning micturition, frequency, or urgency. MUSCULOSKELETAL/RHEUMATOLOGICAL: Denies any muscle pain. ENDOCRINE: Denies any polyuria or polydipsia. Past Medical History Past Medical History: Asthma, Coronary Artery Disease (CAD), COPD, CVA/TIA, Diabetes Mellitus, GERD/Reflux, Hyperlipidemia, Hypertension, Osteoarthritis (OA), Pneumonia Additional Past Medical History / Comment(s): Acute hypercapnic respiratory failure 2ndary to exacerbation COPD, purulent tracheobronchitis, cva affected rt side pt states regained most strength to rt arm/hand and R leg, IDDM type II, neuropathy bilateral feet, RLS, chronic cervical pain, osteoporosis, narcolepsy, hiatal hernia, diverticular disease, IBS, stress urine incontinence, lichens sclerosis, falls History of Any Multi-Drug Resistant Organisms: None Reported Past Surgical History: Appendectomy, Breast Surgery, Cholecystectomy, Heart Catheterization, Hernia Repair, Hysterectomy, Orthopedic Surgery Additional Past Surgical History / Comment(s): 06/24/18 Cervical fusions C4-C5/C5-C6/C6-C7 at [facility] [place], R breast benign lumpectomy, cardiac cath showed mild disease, umbilical hernia repair, D&C, bilateral cataract removals, EGD, colonoscopy with benign polyp, cystocele, rectocele, vuvular bx, liver bx d/t elevated LFT. Past Anesthesia/Blood Transfusion Reactions: No Reported Reaction Smoking Status: Never smoker - Past Family History Mother Family Medical History: Hyperlipidemia, Hypertension Additional Family Medical History / Comment(s): ANEMIA Father Family Medical History: Cancer, CVA/TIA, Diabetes Mellitus Additional Family Medical History / Comment(s): CVA, kidney cancer. Medications and Allergies Home Medications Medication Instructions Recorded Confirmed Type Atorvastatin [Lipitor] 80 mg PO HS 03/21/14 07/10/18 History Baclofen 10 mg PO BID 03/21/14 07/10/18 History Dicyclomine [Bentyl] 10 mg PO QID 03/21/14 07/10/18 History Pantoprazole Sodium [Protonix] 40 mg PO DAILY 03/21/14 07/10/18 History Pramipexole Di-HCl [Mirapex] 1 mg PO HS 03/21/14 07/10/18 History Pregabalin [Lyrica] 200 mg PO TID 03/21/14 07/10/18 History Lidocaine 5% Patch [Lidoderm 5% 1 patch TOPICAL DAILY 03/09/15 07/10/18 History Patch] Montelukast [Singulair] 10 mg PO HS 04/11/15 07/10/18 History DULoxetine HCL [Cymbalta] 30 mg PO DAILY 05/06/17 07/10/18 History Escitalopram [Lexapro] 5 mg PO HS 05/06/17 07/10/18 History Albuterol Nebulized [Ventolin 2.5 mg INHALATION RT-QID 06/05/17 07/10/18 History Nebulized] Fluticasone/Salmeterol [Advair 1 puff INHALATION RT-BID 06/05/17 07/10/18 His tory 250-50 Diskus] Modafinil [Provigil] 200 mg PO QAM 06/05/17 07/10/18 History Ergocalciferol (Vitamin D2) 50,000 unit PO MO 03/19/18 07/10/18 History [Vitamin D2] Fenofibrate Nanocrystallized 145 mg PO DAILY 03/19/18 07/10/18 History [Tricor] Isosorbide Mononitrate ER [Imdur] 30 mg PO DAILY 03/19/18 07/10/18 History Albuterol Sulfate [Proair Hfa] 2 puff INHALATION RT-Q6H PRN 07/10/18 07/10/18 History Benzonatate [Benzonatate Perle] 200 mg PO TID PRN 07/10/18 07/10/18 History Lisinopril-Hctz 10-12.5 mg 1 tab PO DAILY 07/10/18 07/10/18 History [Zestoretic 10-12.5] Niacin 500 mg PO DAILY 07/10/18 07/10/18 History Sennosides-Docusate Sodium 1 tab PO BID 07/10/18 07/10/18 History [Senokot-S] clonazePAM 0.5 mg PO HS PRN 07/10/18 07/10/18 History oxyCODONE-APAP 5-325MG [Percocet 1 tab PO BID PRN 07/10/18 07/10/18 History 5-325 mg] Allergies Allergy/AdvReac Type Severity Reaction Status Date / Time aspirin Allergy Swelling Verified 07/10/18 11:54 ibuprofen Allergy Swelling Verified 07/10/18 11:54 ipratropium bromide Allergy Swelling Verified 07/10/18 11:54 [From Atrovent] meperidine HCl [From Demerol] Allergy Rash/Hives Verified 07/10/18 11:54 nickel Allergy Unknown Verified 07/10/18 11:54 hydromorphone HCl AdvReac Nausea & Verified 07/10/18 11:54 [From Dilaudid] Vomiting metformin AdvReac Unknown Verified 07/10/18 11:54 morphine AdvReac Vomiting Verified 07/10/18 11:54 trazodone AdvReac Weakness Verified 07/10/18 11:54 zolpidem tartrate AdvReac Hallucinati Verified 07/10/18 11:54 [From Ambien] ons MSG Allergy Rash/Hives Uncoded 05/05/18 12:37 Physical Exam Vitals: Vital Signs Temp Pulse Pulse Resp BP BP Pulse Ox 07/10/18 16:01 97.9 F 99 18 133/63 92 L 07/10/18 15:42 98.9 F 07/10/18 15:35 92 07/10/18 15:25 94 07/10/18 12:59 90 07/10/18 12:50 90 07/10/18 11:20 98.4 F 96 26 H 107/72 91 L Intake and Output 07/10/18 07/10/18 07/10/18 06:59 14:59 22:59 Intake Total 100 Balance 100 Intake: Amount of Fluid Infused ( 100 ml) Other: Weight 68.946 kg GENERAL: The patient is alert and oriented x3, not in any acute distress. Well developed, well nourished. -HEENT: Pupils are round and equally reacting to light. EOMI. No scleral icterus. No conjunctival pallor. Normocephalic, atraumatic. No pharyngeal erythema. No thyromegaly. Hard collar is in place CARDIOVASCULAR: S1 and S2 present. No murmurs, rubs, or gallops. -PULMONARY: Chest is clear to auscultation, expiratory wheezing ABDOMEN: Soft, nontender, nondistended, normoactive bowel sounds. No palpable organomegaly. MUSCULOSKELETAL: No joint swelling or deformity. EXTREMITIES: No cyanosis, clubbing, or pedal edema. NEUROLOGICAL: Gross neurological examination did not reveal any focal deficits. SKIN: No rashes. Results CBC & Chem 7: 07/10/18 11:44 07/10/18 11:44 Labs: Abnormal Lab Results - Last 24 Hours (Table) 07/10/18 07/10/18 07/10/18 Range/Units 11:44 11:44 11:44 WBC 10.7 H (3.8-10.6) k/uL Neutrophils # 9.2 H (1.3-7.7) k/uL Lymphocytes # 0.8 L (1.0-4.8) k/uL APTT 21.2 L (22.0-30.0) sec Sodium 136 L (137-145) mmol/L Potassium 3.4 L (3.5-5.1) mmol/L Creatinine 0.46 L (0.52-1.04) mg/dL Glucose 319 H (74-99) mg/dL Magnesium 1.4 L (1.6-2.3) mg/dL Total Protein 6.2 L (6.3-8.2) g/dL Thrombosis Risk Factor Assmnt - Choose All That Apply Any of the Below Risk Factors Present?: Yes Each Factor Represents 1 point: Obesity (BMI >25) Other Risk Factors: Yes Each Risk Factor Represents 2 Points: Age 61-74 years Other congenital or acquired thrombophilia - If yes, enter type in comment: No Thrombosis Risk Factor Assessment Total Risk Factor Score: 3 Thrombosis Risk Factor Assessment Level: Moderate Risk Assessment and Plan Assessment: acute COPD exacerbation recent history of cervical spine fusion , C4-7, with hard collar is in place. syncope , mostly related to coughing right shoulder injury secondary to trauma from syncope. with no fracture on xray hypertension Hyperlipidemia Diabetes Mellitus, type II Diabetic neuropathy History of coronary artery disease History of CVA with mild residual right hemiparesis History of fall History of lichen sclerosis History of GERD History of narcolepsy History of stress urine incontinence History of Irritable bowel syndrome Plan: this is a pleasant 72 yo F who presents with COPD And syncope, her syncope mostly related to cough but it is worth excluding cardiac causes so we call cardiology consult . telemetry. continue with breathing treatment. steroid , oxygen , and antibiotic. insulin sliding scale . Labs and medication were reviewed.. Continue same treatment. Continue with symptomatic treatment. Resume home medication. Monitor lytes and vitals. DVT and GI prophylaxis. Further recommendations of the clinical course of the patient DVT prophylaxis: Subcutaneous heparin GI Prophylaxis: Pepcid PT/OT: Pending Prognosis is guarded
[2018-07-10] MEDS: methylPREDNISolone SOD SUCCI 40 MG/ML 1 ML VIAL IV SCH ×2 (18:29→23:22)
[2018-07-10 18:35] LABS: Appearance,Urine Clear (Clear); Bacteria,Urine Rare /hpf; Bilirubin,Urine Negative (Negative); Blood,Urine Negative (Negative); Color,Urine Yellow; Glucose,Urine (UA) 4+ (Negative); Hyaline Casts,Urine 45 /lpf (0-2); Ketones,Urine Negative (Negative); Leukocyte Esterase,Urine Large (Negative); Mucus,Urine Occasional /hpf; Nitrite,Urine Negative (Negative); Protein,Urine Trace (Negative); RBC,Urine 8 /hpf (0-5); Specific Gravity,Urine 1.035 (1.001-1.035); Squamous Epithelial Cell,Urine 2 /hpf (0-4); Urobilinogen,Urine <2.0 mg/dL (<2.0); WBC,Urine 10 /hpf (0-5)
[2018-07-10] MEDS ORDERED: SYMBICORT 80-4.5 MCG INHALER INHALATION SCH (20:00)
[2018-07-10 20:56] LABS: Glucose,Whole Blood 391 mg/dL (75-99)
[2018-07-10] MEDS ORDERED: PRAMIPEXOLE 1 MG TAB PO SCH (21:00)
--- NOTE | 2018-07-10 21:07 | P.CNPUL ---
History of Present Illness Consult date: 07/10/18 Reason for consult: dyspnea, cough History of present illness: This is a 72-year-old female patient, known asthmatic, who has been also diagnosed having narcolepsy many years back by Dr. Patrick, is coming into the hospital because of worsening shortness of breath. The patient is known to have moderately severe persistent asthma and she came into the hospital because of worsening shortness of breath and cough and producing creamy thick sputum for the past few days. The patient underwent a cervical spine fusion at [facility] on 06/24/2018. Following her surgery, the patient started developing difficulties in swallowing and some hoarseness. She was told by the surgeon that the voices gradually improved. She remains hoarse approximately 3 weeks postop. She denies having any aspiration episodes. She reported that her asthm a is exacerbated. She has been able to do her Advair maintenance on a regular basis. The patient is currently wearing a hard collar in her neck. She apparently passed out twice because of her severe coughing and this was a major concern and following that she end up coming to the hospital. For now, the patient admitted to the medical floor. The patient's white cell count was at 10.7. Electrolytes showed a normal with a normal renal function. The troponin was negative. The chest x-ray shows slight cardiomegaly and the heart size is thought to be enlarged and there is some obvious postoperative changes in her cervical spine. There is no airspace disease pneumothorax and pulmonary infi ltrates noted. The computed tomography scan of the brain and the C-spine showed no acute intracranial process. Cervical spine revealed anterior disc fusion at the level of C4 through C7. No spinal canal stenosis. No changes of any concern other than surgical changes. X-ray of the shoulder was also done due to pain involving the shoulder and there was no evidence of any fracture or dislocation. Terms of her asthma, the patient has been maintained on Advair on outpatient basis and the dose of 500/50 one puff twice a day and she has a nebulizer at home that she is on a when necessary basis. She is also on singular 10 mg by mouth daily. She is known to have restless leg syndrome syndrome and she takes Mirapex 1 mg at bedtime. She has chronic hypersomnia and sleepiness and she takes Provigil 200 mg the morning. Other comorbidities include diabetes mellitus, hypertension, coronary artery disease, peripheral neuropathy related to diabetes mellitus, depression, and previous history of left-sided CVA with some residual right-sided weakness, Note that the diagnosis of narcolepsy was again entertained and I repeat sleep study and based on my there was no evidence of narcolepsy. Review of Systems Constitutional Constitutional: no fever, no night sweats, no significant weight gain, no significant weight loss, no exercise intolerance Eyes Eyes: no dry eyes, no vision change, no irritation ENMT Ears: no difficulty hearing, no ear pain Nose: no frequent nosebleeds, no nose problems, no sinus problems, Mouth/Throat: no sore throat, no bleeding gums, no snoring, no dry mouth, no mouth ulcers, no oral abnormalities, no teeth problems, increased hoarseness and change in voice quality Cardiovascular Cardiovascular: no chest pain, no arm pain on exertion, no shortness of breath when walking, no shortness of breath when lying down, no palpitations, no known heart murmur Respiratory Respiratory: Increased cough and sputum production and some increased shortness of breath, no coughing up blood, no sleep apnea Gastrointestinal Gastrointestinal: no abdominal pain, no nausea, no vomiting, no constipation, normal appetite, no diarrhea, not vomiting blood, no dyspepsia, no GERD Genitourinary Genitourinary: no incontinence, no difficulty urinating, no hematuria, no increased frequency Musculoskeletal Musculoskeletal: no muscle aches, no muscle weakness, no arthralgias/joint pain, no back pain, no swelling in the extremities, the patient is post cervical spine fusion C4 through C7. Integumentary Skin: no abnormal mole, no jaundice, no rashes, no laceration Neurologic Neurologic: no loss of consciousness, no numbness, no seizures, no migraines, no headaches, weakness, dizziness, restless legs, tremor (sleepiness during the day, numbness in the LE, right-sided weakness) Psychiatric Psych: no depression, feeling safe in a relationship, no alcohol abuse, no anxiety, no hallucinations, no suicidal thoughts, sleep disturbances Endocrine Endocrine: fatigue Hematologic/Lymphatic Hematologic/Lymphatic no swollen glands, no bruising, no excessive bleeding Allergic/Immunologic Allergy/Immunologic: no runny nose, no sinus pressure, no itching, no hives, no frequent sneezing ROS unobtainable: due to endotracheal tube 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, IDDM type II, neuropathy bilateral feet, RLS, chronic cervical pain, osteoporosis, narcolepsy, hiatal hernia, diverticular disease, IBS, stress urine incontinence, lichens sclerosis, falls, asthma History of Any Multi-Drug Resistant Organisms: None Reported Past Surgical History: Appendectomy, Breast Surgery, Cholecystectomy, Heart Catheterization, Hernia Repair, Hysterectomy, Orthopedic Surgery Additional Past Surgical History / Comment(s): 06/24/18 Cervical fusions C4-C5/C5-C6/C6-C7 at [facility], R breast benign lumpectomy, cardiac cath showed mild disease, umbilical hernia repair, D&C, bilateral cataract removals, EGD, colonoscopy with benign polyp, cystocele, rectocele, vuvular bx, liver bx d/t elevated LFT. Past Anesthesia/Blood Transfusion Reactions: No Reported Reaction Smoking Status: Never smoker - Past Family History Mother Family Medical History: Hyperlipidemia, Hypertension Additional Family Medical History / Comment(s): ANEMIA Father Family Medical History: Cancer, CVA/TIA, Diabetes Mellitus Additional Family Medical History / Comment(s): CVA, kidney cancer. Medications and Allergies Home Medications Medication Instructions Recorded Confirmed Type Atorvastatin [Lipitor] 80 mg PO HS 03/21/14 07/10/18 History Baclofen 10 mg PO BID 03/21/14 07/10/18 History Dicyclomine [Bentyl] 10 mg PO QID 03/21/14 07/10/18 History Pantoprazole Sodium [Protonix] 40 mg PO DAILY 03/21/14 07/10/18 History Pramipexole Di-HCl [Mirapex] 1 mg PO HS 03/21/14 07/10/18 History Pregabalin [Lyrica] 200 mg PO TID 03/21/14 07/10/18 History Lidocaine 5% Patch [Lidoderm 5% 1 patch TOPICAL DAILY 03/09/15 07/10/18 History Patch] Montelukast [Singulair] 10 mg PO HS 04/11/15 07/10/18 History DULoxetine HCL [Cymbalta] 30 mg PO DAILY 05/06/17 07/10/18 History Escitalopram [Lexapro] 5 mg PO HS 05/06/17 07/10/18 History Albuterol Nebulized [Ventolin 2.5 mg INHALATION RT-QID 06/05/17 07/10/18 History Nebulized] Fluticasone/Salmeterol [Advair 1 puff INHALATION RT-BID 06/05/17 07/10/18 History 250-50 Diskus] Modafinil [Provigil] 200 mg PO QAM 06/05/17 07/10/18 History Ergocalciferol (Vitamin D2) 50,000 unit PO MO 03/19/18 07/10/18 History [Vitamin D2] Fenofibrate Nanocrystallized 145 mg PO DAILY 03/19/18 07/10/18 History [Tricor] Isosorbide Mononitrate ER [Imdur] 30 mg PO DAILY 03/19/18 07/10/18 History Albuterol Sulfate [Proair Hfa] 2 puff INHALATION RT-Q6H PRN 07/10/18 07/10/18 History Benzonatate [Benzonatate Perle] 200 mg PO TID PRN 07/10/18 07/10/18 History Lisinopril-Hctz 10-12.5 mg 1 tab PO DAILY 07/10/18 07/10/18 History [Zestoretic 10-12.5] Niacin 500 mg PO DAILY 07/10/18 07/10/18 History Sennosides-Docusate Sodium 1 tab PO BID 07/10/18 07/10/18 History [Senokot-S] clonazePAM 0.5 mg PO HS PRN 07/10/18 07/10/18 History oxyCODONE-APAP 5-325MG [Percocet 1 tab PO BID PRN 07/10/18 07/10/18 History 5-325 mg] Allergies Allergy/AdvReac Type Severity Reaction Status Date / Time aspirin Allergy Swelling Verified 07/10/18 11:54 ibuprofen Allergy Swelling Verified 07/10/18 11:54 ipratropium bromide Allergy Swelling Verified 07/10/18 11:54 [From Atrovent] meperidine HCl [From Demerol] Allergy Rash/Hives Verified 07/10/18 11:54 nickel Allergy Unknown Verified 07/10/18 11:54 hydromorphone HCl AdvReac Nausea & Verified 07/10/18 11:54 [From Dilaudid] Vomiting metformin AdvReac Unknown Verified 07/10/18 11:54 morphine AdvReac Vomiting Verified 07/10/18 11:54 trazodone AdvReac Weakness Verified 07/10/18 11:54 zolpidem tartrate AdvReac Hallucinati Verified 07/10/18 11:54 [From Ambien] ons MSG Allergy Rash/Hives Uncoded 05/05/18 12:37 Physical Exam Vitals: Vital Signs Temp Pulse Pulse Resp BP BP Pulse Ox 07/10/18 16:01 97.9 F 99 18 133/63 92 L 07/10/18 15:42 98.9 F 07/10/18 15:35 92 07/10/18 15:25 94 07/10/18 12:59 90 07/10/18 12:50 90 07/10/18 11:20 98.4 F 96 26 H 107/72 91 L Intake and Output 07/10/18 07/10/18 07/10/18 06:59 14:59 22:59 Intake Total 100 Balance 100 Intake: Amount of Fluid Infused ( 100 ml) Other: Weight 68.946 kg General Appearance no diaphoresis, no respiratory distress, speech not interrupt ed by breaths, no dyspnea, no pallor, not cachectic, well nourished, appears well, obesity HEENT no pursed lip breathing, no jugular venous distention, no mucous membrane cyanosis, no perioral cyanosis, mallampati classification: class 1, Mallampati Classification: Class 3 Chest no barrel chest, no retractions, no sternocleidomastoid muscle contractions, no supraclavicular retractions, no intercostal retractions, prolonged expiratory wheezing, decreased air movement, no rhonchi, no hyperinflation, (normal) adventitious sounds: rales / crackles: bilaterally: midlung cuevas, decreased air movement Heart no right ventricular heave, no distant heart sounds, no s3 gallop, (normal) jugular vein: jugular venous distention: by 0cm, (normal) jugular vein GI bowel sounds: hyperactive (borborygmi), bowel sounds: diminished or absent Extremities no cyanosis, no clubbing, no edema Neurologic no decreased mental status, no somnolence, no confusion Assisstive Devices: ambulates with no assitive devices Gait and Mobility: gait WNL, full weight bearing Skin General Appearance normal, (normal) normal except as noted Results - Laboratory Findings CBC and BMP: 07/10/18 11:44 07/10/18 11:44 PT/INR, D-dimer PT 10.0 sec (9.0-12.0) 07/10/18 11:44 INR 0.9 (<1.2) 07/10/18 11:44 Abnormal lab findings: Abnormal Labs 07/10/18 07/10/18 07/10/18 11:44 11:44 11:44 WBC 10.7 H Neutrophils # 9.2 H Lymphocytes # 0.8 L APTT 21.2 L Sodium 136 L Potassium 3.4 L Creatinine 0.46 L Glucose 319 H Magnesium 1.4 L Total Protein 6.2 L Urine Protein Urine Glucose (UA) Ur Leukocyte Esterase Urine RBC Urine WBC Urine Bacteria Hyaline Casts Urine Mucus 07/10/18 18:20 WBC Neutrophils # Lymphocytes # APTT Sodium Potassium Creatinine Glucose Magnesium Total Protein Urine Protein Trace H Urine Glucose (UA) 4+ H Ur Leukocyte Esterase Large H Urine RBC 8 H Urine WBC 10 H Urine Bacteria Rare H Hyaline Casts 45 H Urine Mucus Occasional H - Diagnostic Findings Chest x-ray: image reviewed Assessment and Plan Plan: 1 acute exacerbation of chronic bronchial asthma, with secondary shortness of breath. Suspect also vocal cord paralysis following cervical spine surgery. Aspiration is also likely as the patient has been having difficulty with swallowing since her cervical spine surgery. 2 cough syncope 3 moderate to severe bronchial asthma limited on advancing her on outpatient basis and addition to albuterol perhaps on a when necessary basis 4 recent cervical spine fusion involving C4 through C7 and the patient is curren tly wearing a hard collar 5 right shoulder injury secondary to syncope without any fractures or dis location 6 new onset hoarseness and some difficulty swallowing following cervical spine surgery 7 hypertension 8 hyperlipidemia. 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 Discontinue the Symbicort and put the patient on a combination of Pulmicort and Perforomist nebulized treatments around the clock.. Empiric antibiotic coverage with doxycycline. IV Solu Medrol 60 mg every 6 hours. Continue Singulair. Resume her outpatient medications, we'll proceed with a swallow evaluation. We'll need an ENT evaluation for an upper endoscopy/laryngoscopy to rule out vocal cord paralysis. We'll continue to follow.
[2018-07-10] MEDS: BACLOFEN 10 MG TAB PO SCH (21:54)
[2018-07-10] MEDS: MONTELUKAST 10 MG TAB PO SCH (21:54)
[2018-07-10] MEDS: HEPARIN SODIUM,PORCINE 5,000 UNIT/ML 1 ML VIAL SQ SCH (21:54)
[2018-07-10] MEDS: FAMOTIDINE 20 MG/2 ML VIAL IV SCH (21:54)
[2018-07-10] MEDS: ATORVASTATIN 80 MG TAB PO SCH (21:54)
[2018-07-10] MEDS: INSULIN ASPART (NovoLOG) 100 UNIT/ML VIAL SQ SCH (21:55)
[2018-07-10] MEDS: ESCITALOPRAM 5 MG TAB PO SCH (21:55)
[2018-07-10] MEDS: DOXYCYCLINE 100 MG in SODIUM CHLORIDE 0.9% 100 ML IVPB SCH (21:56)
[2018-07-10] MEDS: SENNOSIDES-DOCUSATE SODIUM 1 EACH TAB PO SCH (21:57)
[2018-07-10] MEDS: oxyCODONE-APAP 5-325MG 1 EACH TAB PO PRN (22:01)
[2018-07-10] MEDS: BENZONATATE 100 MG CAP PO PRN (22:13)
[2018-07-11] MEDS: IPRATROPIUM-ALBUTEROL 3 ML NEB INHALATION SCH ×7 (00:36→23:17)
[2018-07-11 02:12] LABS: Glucose,Whole Blood 354 mg/dL (75-99)
[2018-07-11] MEDS: INSULIN ASPART (NovoLOG) 100 UNIT/ML VIAL SQ SCH ×5 (02:21→20:46)
[2018-07-11 06:58] LABS: Glucose,Whole Blood 316 mg/dL (75-99)
[2018-07-11] MEDS: methylPREDNISolone SOD SUCCI 40 MG/ML 1 ML VIAL IV SCH ×3 (07:25→23:04)
[2018-07-11] MEDS: DOXYCYCLINE 100 MG in SODIUM CHLORIDE 0.9% 100 ML IVPB SCH ×2 (07:25→20:46)
[2018-07-11] MEDS: FAMOTIDINE 20 MG/2 ML VIAL IV SCH (07:25)
[2018-07-11] MEDS: PANTOPRAZOLE 40 MG TABLET PO SCH (07:49)
[2018-07-11] MEDS: BACLOFEN 10 MG TAB PO SCH ×3 (07:49→20:46)
[2018-07-11] MEDS: DICYCLOMINE 10 MG CAP PO SCH ×4 (07:49→20:48)
[2018-07-11] MEDS: FENOFIBRATE 160 MG TAB PO SCH (07:49)
[2018-07-11] MEDS: DULoxetine HCL 30 MG CAPSULE.DR PO SCH (07:49)
[2018-07-11] MEDS: PREGABALIN 100 MG CAP PO SCH ×3 (07:50→22:58)
[2018-07-11] MEDS: LISINOPRIL-HCTZ 10-12.5 MG 1 EACH TAB PO SCH (07:50)
[2018-07-11] MEDS: NIACIN TR 500 MG CAPLET PO SCH (07:50)
[2018-07-11] MEDS: MODAFINIL 100 MG TAB PO SCH (07:50)
[2018-07-11] MEDS: LIDOCAINE 5% PATCH TOPICAL SCH (08:14)
[2018-07-11] MEDS: HEPARIN SODIUM,PORCINE 5,000 UNIT/ML 1 ML VIAL SQ SCH ×2 (08:14→20:47)
[2018-07-11] MEDS: ISOSORBIDE MONONITRATE ER 30 MG TAB.ER.24H PO SCH (08:18)
[2018-07-11] MEDS: BUDESONIDE 0.5 MG/2 ML NEBU INHALATION SCH ×2 (08:48→19:27)
[2018-07-11 08:57] LABS: Basophils % (A) 0 %; Eosinophils % (A) 0 %; HCT 36.9 % (34.0-46.0); HGB 12.3 gm/dL (11.4-16.0); Lymphocytes # (A) 0.5 k/uL (1.0-4.8); Lymphocytes % (A) 4 %; MCH 28.1 pg (25.0-35.0); MCHC 33.3 g/dL (31.0-37.0); MCV 84.5 fL (80.0-100.0); Mean Platelet Volume 7.4; Monocytes # (A) 0.2 k/uL (0-1.0); Monocytes % (A) 2 %; Neutrophils # (A) 10.7 k/uL (1.3-7.7); Neutrophils % (A) 93 %; Platelet Count 328 k/uL (150-450); RBC 4.37 m/uL (3.80-5.40); WBC 11.4 k/uL (3.8-10.6)
[2018-07-11 09:22] LABS: Anion Gap 14 mmol/L; Blood Urea Nitrogen 15 mg/dL (7-17); Calcium 9.4 mg/dL (8.4-10.2); Carbon Dioxide 23 mmol/L (22-30); Chloride 100 mmol/L (98-107); Glucose 304 mg/dL (74-99); Magnesium 1.8 mg/dL (1.6-2.3); Potassium 3.8 mmol/L (3.5-5.1); Sodium 137 mmol/L (137-145)
[2018-07-11] MEDS: SENNOSIDES-DOCUSATE SODIUM 1 EACH TAB PO SCH ×2 (10:21→20:38)
--- NOTE | 2018-07-11 10:45 | CONS ---
CONSULTATION Saira is a 72-year-old lady with history of coronary artery disease, hypertension, dyslipidemia, diabetes, who presented to the hospital with symptoms of bronchitis, recurrent episodes of cough at home and episodes of syncope that happened during those bouts of cough. She has a history of cervical spine fusion that was done recently at [facility] and has a neck collar in place. She passed out twice during an episode of coughing. Does not have chest pain. Does not have palpitations, but she does have cough and somewhat of a productive sputum. I believe her syncope is posttussive syncope and her treatment is going to be in controlling her cough. I am going to obtain a 2D echo to evaluate her LV function. She apparently had a negative stress test within the last one year. PAST MEDICAL HISTORY: Significant for coronary artery disease, hypertension, diabetes, dyslipidemia, cervical spine surgery. MEDICATIONS: Are as charted. ALLERGIES: Are as charted. I reviewed them. REVIEW OF SYSTEMS: CONSTITUTIONAL: Unremarkable. HEENT: Significant for cervical spine surgery. CARDIOVASCULAR: Significant for syncope. PULMONARY: Significant for cough. GI: Negative. GENITOURINARY: Negative. HEMATOLOGICAL: Negative. MUSCULOSKELETAL: Significant for surgery. ENDOCRINE: Negative. PHYSICAL EXAMINATION: On exam, patient is comfortable at rest. Vital signs are stable. Chest exam reveals good air entry bilaterally. Heart exam reveals first and second heart sounds. No gallop. No murmur. Abdomen is soft, nontender. Exam of extremities did not reveal any edema. Peripheral pulses are felt. LABS: Show a hemoglobin of 12.3, platelet count is 328, potassium is 3.8, creatinine is 0.4. ASSESSMENT: 1. Posttussive syncope. 2. History of coronary artery disease. 3. Bronchitis. PLAN: Treat patient's bronchitis well and cough well. I will obtain a 2D echo. Will continue to watch her on telemetry. MMODL / IJN: [id number] /
[2018-07-11 11:04] LABS: Glucose,Whole Blood 317 mg/dL (75-99)
[2018-07-11 11:27] VITALS: BMI 31.7
--- NOTE | 2018-07-11 12:15 | FL ---
Modified barium swallow. HISTORY: Dysphagia. Modified barium swallow was performed with the department of speech pathology. The patient was prese nted with various consistencies of barium. There is no evidence for aspiration or penetration. Full report is to follow from the department of speech pathology. Impression: No evidence for aspiration or penetration.
[2018-07-11] MEDS: oxyCODONE-APAP 5-325MG 1 EACH TAB PO PRN ×2 (12:30→22:58)
--- NOTE | 2018-07-11 13:58 | P.PN ---
Subjective this is a 72 yo Female with past medical history of COPD, recent history of cervical spine fusion done on 06/24/2018 as per pt with at [facility] for long history of degenerative joint disease , she has hard collar in place, presents because she passed out twice associated with sever coughing, pt and confirm to me she has history of COPD that follow up wiht although pt denies history of smoking cigarette in the past before, now presents with worsening dyspnea and cough with creamy phlegm for the last few days. she has no chest pain but she has right shoulder pain after she fell twice as above. vitals are stable, she is saturating 92%on room air. her WBC 10.7 K, Hb 11.8, platelets 292. sodium 136, potassium 1.4 , magnesium 1.4, creatinine 0.42, troponin less than 0.012. her right shoulder xray is negative for fracture or dislocation, left shoulder xray : acromiocalvicular arthropathy with steopenia , her brain CT : no acute process. Cervical CT: no fracture or dislocation , post surgical changes at C4- 7. CXR: no pneumonia, bronchitis. 07/11/2018 Today we discussed the case with pulmonary team. Patient looks like she is with past medical history of asthma rather than COPD. Pulmonary input is appreciated.Patients is fully awake and oriented. Her breathing is improving. Looks like her main problem is hoarseness of the voice anddifficulty swallowing after she had the surgery for the last 3 weeks. Patient had a swallow evaluation today showing no evidence of aspiration. ENT team have been consulted. Cardiology evaluated the patient and recommended to continue with telemetry and echocardiogram. She is hemodynamically stable. WBC 11.4 K. Creatinine 0.4. Urinalysis is susp icious for infection, urine culture sent. Shoulder x-ray: No fracture. Review of systems CONSTITUTIONAL: No fever, no malaise, no fatigue. HEENT: No recent visual problems or hearing problems. Denied any sore throat. CARDIOVASCULAR: No orthopnea, PND, no palpitations, no syncope. PULMONARY: no hemoptysis. GASTROINTESTINAL: No diarrhea, no nausea, no vomiting, no abdominal pain. Normoactive bowel sounds. NEUROLOGICAL: No headaches, no weakness, no numbness. HEMATOLOGICAL: Denies any bleeding or petechiae. GENITOURINARY: Denies any burning micturition, frequency, or urgency. MUSCULOSKELETAL/RHEUMATOLOGICAL: Denies any joint pain, swelling, or any muscle pain. ENDOCRINE: Denies any polyuria or polydipsia. Medication: Albuterol 0.5 mg, Lipitor 80 mg, baclofen 10 mg, Pulmicort 0.5 mg, Klonopin 0.5 mg, Bentyl 10 mg, doxycycline 100 mg, Cymbalta 30 mg, vitamin D 50,000 units, Cipro 5 mg, Pepcid 20 mg, fenofibrate 160 mg, heparin 5000 units, no block insulin, Imdur 30 mg, lidocaine patch, lisinopril/hydrochlorothiazide 10-12.5 mg, Solu-Medrol 40 mg, modafinil 200 mg, single layer 10 mg, Berny- Synephrine 500 mg, Percocet 5-325 mg, tone is 40 mg, pramipexole 1 mg, Lyrica 200 mg, senna/decussate, sodium chloride Objective - Vital Signs Vital signs: Vital Signs Temp 97.9 F 07/11/18 11:57 Pulse 96 07/11/18 12:13 Resp 18 07/11/18 11:57 BP 118/72 07/11/18 11:57 Pulse Ox 93 L 07/11/18 11:57 Intake & Output 07/10/18 07/11/18 07/11/18 18:59 06:59 18:59 Intake Total 100 380 Balance 100 380 Weight 68.946 kg 68.946 kg Intake: Amount of Fluid Infused ( 100 ml) Intake, IV Titration 280 Amount Doxycycline 100 mg In 100 Sodium Chloride 0.9% 100 ml @ 100 mls/hr IVPB Q12HR [facility] Rx#:[id number] Sodium Chloride 0.9% 1, 180 000 ml @ 20 mls/hr IV . Q24H [facility] Rx#:[id number] Oral 100 Other: Voiding Method Toilet Toilet # Voids 2 1 - Exam GENERAL: The patient is alert and oriented x3, not in any acute distress. Well developed, well nourished. -HEENT: Pupils are round and equally reacting to light. EOMI. No scleral icterus. No conjunctival pallor. Normocephalic, atraumatic. No pharyngeal erythema. No thyromegaly. Hoarseness of voice, Hard collar is in place CARDIOVASCULAR: S1 and S2 present. No murmurs, rubs, or gallops. -PULMONARY: Chest is clear to auscultation, expiratory wheezing ABDOMEN: Soft, nontender, nondistended, normoactive bowel sounds. No palpable organomegaly. MUSCULOSKELETAL: No joint swelling or deformity. EXTREMITIES: No cyanosis, clubbing, or pedal edema. NEUROLOGICAL: Gross neurological examination did not reveal any focal deficits. SKIN: No rashes. - Labs CBC & Chem 7: 07/11/18 08:08 07/11/18 08:08 Labs: Abnormal Lab Results - Last 24 Hours (Table) 07/10/18 07/10/18 07/11/18 Range/Units 18:20 20:55 02:10 WBC (3.8-10.6) k/uL Neutrophils # (1.3-7.7) k/uL Lymphocytes # (1.0-4.8) k/uL Creatinine (0.52-1.04) mg/dL Glucose (74-99) mg/dL POC Glucose (mg/dL) 391 H 354 H (75-99) mg/dL Urine Protein Trace H (Negative) Urine Glucose (UA) 4+ H (Negative) Ur Leukocyte Esterase Large H (Negative) Urine RBC 8 H (0-5) /hpf Urine WBC 10 H (0-5) /hpf Urine Bacteria Rare H (None) /hpf Hyaline Casts 45 H (0-2) /lpf Urine Mucus Occasional H (None) /hpf 07/11/18 07/11/18 07/11/18 Range/Units 06:56 08:08 08:08 WBC 11.4 H (3.8-10.6) k/uL Neutrophils # 10.7 H (1.3-7.7) k/uL Lymphocytes # 0.5 L (1.0-4.8) k/uL Creatinine 0.49 L (0.52-1.04) mg/dL Glucose 304 H (74-99) mg/dL POC Glucose (mg/dL) 316 H (75-99) mg/dL Urine Protein (Negative) Urine Glucose (UA) (Negative) Ur Leukocyte Esterase (Negative) Urine RBC (0-5) /hpf Urine WBC (0-5) /hpf Urine Bacteria (None) /hpf Hyaline Casts (0-2) /lpf Urine Mucus (None) /hpf 07/11/18 Range/Units 11:02 WBC (3.8-10.6) k/uL Neutrophils # (1.3-7.7) k/uL Lymphocytes # (1.0-4.8) k/uL Creatinine (0.52-1.04) mg/dL Glucose (74-99) mg/dL POC Glucose (mg/dL) 317 H (75-99) mg/dL Urine Protein (Negative) Urine Glucose (UA) (Negative) Ur Leukocyte Esterase (Negative) Urine RBC (0-5) /hpf Urine WBC (0-5) /hpf Urine Bacteria (None) /hpf Hyaline Casts (0-2) /lpf Urine Mucus (None) /hpf Assessment and Plan Assessment: acute asthma exacerbation Hoarseness of voice recent history of cervical spine fusion , C4-7, with hard collar is in place. syncope , mostly related to coughing right shoulder injury secondary to trauma from syncope. with no fracture on xray hypertension Hyperlipidemia Diabetes Mellitus, type II Diabetic neuropathy History of coronary artery disease History of CVA with mild residual right hemiparesis History of fall History of lichen sclerosis History of GERD History of narcolepsy History of stress urine incontinence History of Irritable bowel syndrome Plan: this is a pleasant 72 yo F who presents with COPD And syncope, her syncope mostly related to cough but it is worth excluding cardiac causes so we call cardiology consult . telemetry. continue with breathing treatment. steroid , oxygen , and antibiotic. ENT consult is called. insulin sliding scale . Labs and medication were reviewed.. Continue same treatment. Continue with symptomatic treatment. Resume home medication. Monitor lytes and vitals. DVT and GI prophylaxis. Further recommendations of the clinical course of the patient DVT prophylaxis: Subcutaneous heparin GI Prophylaxis: PPI PT/OT: Pending Prognosis is guarded
[2018-07-11] MEDS ORDERED: INSULIN DETEMIR (LEVEMIR) 100 UNIT/ML SYR SQ ONE ×2 (15:37→17:51)
[2018-07-11] MEDS: SODIUM CHLORIDE 0.9% 1,000 ML IV SCH (15:41)
--- NOTE | 2018-07-11 16:40 | P.PN ---
Subjective Progress Note Date: 07/11/18 Today's evaluation 07/11/2018, the patient is less bronchospastic and wheezy compared to yesterday. She is still having episodes of cough and. She is on bronchodilators and systemic steroids. She continues to be hoarse. ENT evaluation is to follow. Earlier this morning, bedside swallow evaluation was done and the patient was having difficulties with swallowing and there was concern for aspiration. Based on that, the patient underwent a video fluoroscopic swallow evaluation and there was no evidence of any aspiration. The patient will be seen also by cardiology. Objective - Vital Signs Vital signs: Vital Signs Temp 97.9 F 07/11/18 11:57 Pulse 94 07/11/18 15:22 Resp 18 07/11/18 15:22 BP 118/72 07/11/18 11:57 Pulse Ox 93 L 07/11/18 11:57 Intake & Output 07/10/18 07/11/18 07/11/18 18:59 06:59 18:59 Intake Total 100 380 340 Balance 100 380 340 Weight 68.946 kg 68.946 kg Intake: Amount of Fluid Infused ( 100 ml) Intake, IV Titration 280 340 Amount Doxycycline 100 mg In 100 100 Sodium Chloride 0.9% 100 ml @ 100 mls/hr IVPB Q12HR [facility] Rx#:[id number] Sodium Chloride 0.9% 1, 180 240 000 ml @ 20 mls/hr IV . Q24H [facility] Rx#:[id number] Oral 100 Other: Voiding Method Toilet Toilet # Voids 2 2 - Exam General Appearance no diaphoresis, no respiratory distress, speech not interrupted by breaths, no dyspnea, no pallor, not cachectic, well nourished, appears well, obesity HEENT no pursed lip breathing, no jugular venous distention, no mucous membrane cyanosis, no perioral cyanosis, mallampati classification: class 1, Mallampati Classification: Class 3 Chest no barrel chest, no retractions, no sternocleidomastoid muscle contractions, no supraclavicular retractions, no intercostal retractions, prolonged expiratory wheezing, decreased air movement, no rhonchi, no hyperinflation, (normal) adventitious sounds: rales / crackles: bilaterally: midlung cuevas, decreased air movement Heart no right ventricular heave, no distant heart sounds, no s3 gallop, (normal) jugular vein: jugular venous distention: by 0cm, (normal) jugular vein GI bowel sounds: hyperactive (borborygmi), bowel sounds: diminished or absent Extremities no cyanosis, no clubbing, no edema Neurologic no decreased mental status, no somnolence, no confusion Assisstive Devices: ambulates with no assitive devices Gait and Mobility: gait WNL, full weight bearing Skin General Appearance normal, (normal) normal except as noted - Labs CBC & Chem 7: 07/11/18 08:08 07/11/18 08:08 Labs: Abnormal Lab Results - Last 24 Hours (Table) 07/10/18 07/10/18 07/11/18 Range/Units 18:20 20:55 02:10 WBC (3.8-10.6) k/uL Neutrophils # (1.3-7.7) k/uL Lymphocytes # (1.0-4.8) k/uL Creatinine (0.52-1.04) mg/dL Glucose (74-99) mg/dL POC Glucose (mg/dL) 391 H 354 H (75-99) mg/dL Urine Protein Trace H (Negative) Urine Glucose (UA) 4+ H (Negative) Ur Leukocyte Esterase Large H (Negative) Urine RBC 8 H (0-5) /hpf Urine WBC 10 H (0-5) /hpf Urine Bacteria Rare H (None) /hpf Hyaline Casts 45 H (0-2) /lpf Urine Mucus Occasional H (None) /hpf 07/11/18 07/11/18 07/11/18 Range/Units 06:56 08:08 08:08 WBC 11.4 H (3.8-10.6) k/uL Neutrophils # 10.7 H (1.3-7.7) k/uL Lymphocytes # 0.5 L (1.0-4.8) k/uL Creatinine 0.49 L (0.52-1.04) mg/dL Glucose 304 H (74-99) mg/dL POC Glucose (mg/dL) 316 H (75-99) mg/dL Urine Protein (Negative) Urine Glucose (UA) (Negative) Ur Leukocyte Esterase (Negative) Urine RBC (0-5) /hpf Urine WBC (0-5) /hpf Urine Bacteria (None) /hpf Hyaline Casts (0-2) /lpf Urine Mucus (None) /hpf 07/11/18 Range/Units 11:02 WBC (3.8-10.6) k/uL Neutrophils # (1.3-7.7) k/uL Lymphocytes # (1.0-4.8) k/uL Creatinine (0.52-1.04) mg/dL Glucose (74-99) mg/dL POC Glucose (mg/dL) 317 H (75-99) mg/dL Urine Protein (Negative) Urine Glucose (UA) (Negative) Ur Leukocyte Esterase (Negative) Urine RBC (0-5) /hpf Urine WBC (0-5) /hpf Urine Bacteria (None) /hpf Hyaline Casts (0-2) /lpf Urine Mucus (None) /hpf Assessment and Plan Plan: 1 acute exacerbation of chronic bronchial asthma, with secondary shortness of breath. Suspect also vocal cord paralysis following cervical spine surgery. Aspiration is also likely as the patient has been having difficulty with swallowing since her cervical spine surgery. 2 cough syncope 3 moderate to severe bronchial asthma limited on advancing her on outpatient basis and addition to albuterol perhaps on a when necessary basis 4 recent cervical spine fusion involving C4 through C7 and the patient is currently wearing a hard collar 5 right shoulder injury secondary to syncope without any fractures or dislocation 6 new onset hoarseness and some difficulty swallowing following cervical spine surgery 7 hypertension 8 hyperlipidemia. 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 Discontinue the Symbicort and put the patient on a combination of Pulmicort and Perforomist nebulized treatments around the clock.. Empiric antibiotic coverage with doxycycline. IV Solu Medrol 60 mg every 6 hours. Continue Singulair. Swallow evaluation was completed. No evidence of any aspiration. Awaiting an ENT evaluation. Continue same treatment. We'll continue to follow.
[2018-07-11 16:59] LABS: Glucose,Whole Blood 439 mg/dL (75-99)
[2018-07-11] MEDS ORDERED: INSULIN ASPART (NovoLOG) 100 UNIT/ML VIAL SQ ONE (17:49)
[2018-07-11 19:52] LABS: Glucose,Whole Blood 378 mg/dL (75-99)
[2018-07-11] MEDS: PRAMIPEXOLE 0.5 MG TAB PO SCH (20:45)
[2018-07-11] MEDS: guaiFENesin SYRUP 100MG/5ML 200 MG/10 ML CUP PO PRN (20:45)
[2018-07-11] MEDS: ATORVASTATIN 80 MG TAB PO SCH (20:46)
[2018-07-11] MEDS: MONTELUKAST 10 MG TAB PO SCH (20:46)
[2018-07-11] MEDS: ESCITALOPRAM 5 MG TAB PO SCH (20:47)
--- NOTE | 2018-07-11 20:54 | XR ---
PROCEDURE: XR ankle complete LT - 3V DATE AND TIME: 07/11/2018 8:45 PM CLINICAL INDICATION: PHH; bruising/swelling/pain TECHNIQUE: Department protocol COMPARISON: 06/27/2015 FINDINGS: There is no fracture or malalignment. The soft tissues are unremarkable. IMPRESSION: NO ACUTE PROCESS.
[2018-07-11] MEDS: BENZONATATE 100 MG CAP PO PRN (22:58)
[2018-07-12 02:05] LABS: Glucose,Whole Blood 382 mg/dL (75-99)
[2018-07-12] MEDS: INSULIN ASPART (NovoLOG) 100 UNIT/ML VIAL SQ SCH ×5 (02:13→21:03)
[2018-07-12] MEDS: IPRATROPIUM-ALBUTEROL 3 ML NEB INHALATION SCH ×6 (03:03→23:34)
[2018-07-12 07:03] LABS: Glucose,Whole Blood 385 mg/dL (75-99)
[2018-07-12 07:23] LABS: Basophils % (A) 0 %; Eosinophils % (A) 0 %; HCT 34.8 % (34.0-46.0); HGB 11.5 gm/dL (11.4-16.0); Lymphocytes # (A) 0.5 k/uL (1.0-4.8); Lymphocytes % (A) 5 %; MCV 84.9 fL (80.0-100.0); Mean Platelet Volume 7.7; Monocytes # (A) 0.3 k/uL (0-1.0); Monocytes % (A) 3 %; Neutrophils # (A) 8.9 k/uL (1.3-7.7); Neutrophils % (A) 91 %; Platelet Count 320 k/uL (150-450); RDW 14.6 % (11.5-15.5); WBC 9.8 k/uL (3.8-10.6)
[2018-07-12 07:32] LABS: Anion Gap 10 mmol/L; Blood Urea Nitrogen 21 mg/dL (7-17); Calcium 9.8 mg/dL (8.4-10.2); Carbon Dioxide 26 mmol/L (22-30); Chloride 103 mmol/L (98-107); Glucose 334 mg/dL (74-99); Magnesium 1.8 mg/dL (1.6-2.3); Potassium 4.5 mmol/L (3.5-5.1); Sodium 139 mmol/L (137-145)
[2018-07-12] MEDS: BUDESONIDE 0.5 MG/2 ML NEBU INHALATION SCH ×2 (08:13→20:10)
[2018-07-12] MEDS: PANTOPRAZOLE 40 MG TABLET PO SCH (08:34)
[2018-07-12] MEDS: HEPARIN SODIUM,PORCINE 5,000 UNIT/ML 1 ML VIAL SQ SCH ×2 (08:35→21:03)
[2018-07-12] MEDS: methylPREDNISolone SOD SUCCI 40 MG/ML 1 ML VIAL IV SCH ×2 (08:35→16:58)
[2018-07-12] MEDS: BACLOFEN 10 MG TAB PO SCH ×2 (08:35→21:02)
[2018-07-12] MEDS: PREGABALIN 100 MG CAP PO SCH ×3 (08:35→21:02)
[2018-07-12] MEDS: ISOSORBIDE MONONITRATE ER 30 MG TAB.ER.24H PO SCH (08:35)
[2018-07-12] MEDS: DICYCLOMINE 10 MG CAP PO SCH ×4 (08:36→21:10)
[2018-07-12] MEDS: SENNOSIDES-DOCUSATE SODIUM 1 EACH TAB PO SCH ×2 (08:37→21:10)
[2018-07-12] MEDS: NIACIN TR 500 MG CAPLET PO SCH (08:39)
[2018-07-12] MEDS: LISINOPRIL-HCTZ 10-12.5 MG 1 EACH TAB PO SCH (08:40)
[2018-07-12] MEDS: FENOFIBRATE 160 MG TAB PO SCH (08:40)
[2018-07-12] MEDS: DULoxetine HCL 30 MG CAPSULE.DR PO SCH (08:40)
[2018-07-12] MEDS: LIDOCAINE 5% PATCH TOPICAL SCH (08:42)
[2018-07-12] MEDS: DOXYCYCLINE 100 MG in SODIUM CHLORIDE 0.9% 100 ML IVPB SCH ×2 (08:42→21:02)
[2018-07-12] MEDS: BENZONATATE 100 MG CAP PO PRN (08:46)
[2018-07-12] MEDS: MODAFINIL 100 MG TAB PO SCH (10:15)
--- NOTE | 2018-07-12 10:40 | P.PN ---
Subjective Progress Note Date: 07/12/18 The patient is a 72-year-old female who is being followed for posttussive syncope. She continues to have a cough, however has not had any more episodes of syncope since presenting to the hospital. She denies any dizziness, palpitations, chest discomfort, or dyspnea. On exam she is currently sitting comfortably up in a chair. No acute distress. She states she was able to ambuate to the chair with minimal assistance and without symptoms this morning. Objective - Vital Signs Vital signs: Vital Signs Temp 98.0 F 07/12/18 05:00 Pulse 82 07/12/18 08:25 Resp 16 07/12/18 05:00 BP 116/74 07/12/18 05:00 Pulse Ox 93 L 07/12/18 05:00 Intake & Output 07/11/18 07/12/18 07/12/18 18:59 06:59 18:59 Intake Total 340 200 Balance 340 200 Weight 68.946 kg Intake: Intake, IV Titration 340 Amount Doxycycline 100 mg In 100 Sodium Chloride 0.9% 100 ml @ 100 mls/hr IVPB Q12HR [facility] Rx#:[id number] Sodium Chloride 0.9% 1, 240 000 ml @ 20 mls/hr IV . Q24H [facility] Rx#:[id number] Oral 200 Other: Voiding Method Toilet Toilet # Voids 2 1 - Exam HEENT: Head is atraumatic, normocephalic. Pupils are equal, round. Sclerae anicteric. Conjunctivae are clear. Mucous membranes of the mouth are moist. Currently wearing neck brace. CHEST EXAMINATION: Lungs are clear to auscultation. No wheezes rhonchi or crackles. No chest wall tenderness is noted on palpation or with deep breathing. HEART EXAMINATION: Heart regular rate and rhythm. S1, S2 heard. No murmurs, gallops or rub. ABDOMEN: Soft, nontender. Bowel sounds are heard. No organomegaly noted. EXTREMITIES: 2+ peripheral pulses with no evidence of peripheral edema and no calf tenderness noted. NEUROLOGIC EXAMINATION: Patient is awake, alert and oriented x3. - Labs CBC & Chem 7: 07/12/18 06:20 07/12/18 06:20 Labs: Abnormal Lab Results - Last 24 Hours (Table) 07/11/18 07/11/18 07/11/18 Range/Units 11:02 16:58 19:51 Neutrophils # (1.3-7.7) k/uL Lymphocytes # (1.0-4.8) k/uL BUN (7-17) mg/dL Glucose (74-99) mg/dL POC Glucose (mg/dL) 317 H 439 H 378 H (75-99) mg/dL 07/12/18 07/12/18 07/12/18 Range/Units 02:03 06:20 06:20 Neutrophils # 8.9 H (1.3-7.7) k/uL Lymphocytes # 0.5 L (1.0-4.8) k/uL BUN 21 H (7-17) mg/dL Glucose 334 H (74-99) mg/dL POC Glucose (mg/dL) 382 H (75-99) mg/dL 07/12/18 Range/Units 07:01 Neutrophils # (1.3-7.7) k/uL Lymphocytes # (1.0-4.8) k/uL BUN (7-17) mg/dL Glucose (74-99) mg/dL POC Glucose (mg/dL) 385 H (75-99) mg/dL Microbiology - Last 24 Hours (Table) 07/11/18 16:20 Urine Culture - Preliminary Urine,Clean Catch Assessment and Plan Assessment: #1 syncope, posttussive #2 bronchitis #3 history of coronary artery disease Plan: Continue with treatment for bronchitis, as well as cough. 2-D echo to monitor heart structure and function. Continue with telemetry.
[2018-07-12] MEDS: oxyCODONE-APAP 5-325MG 1 EACH TAB PO PRN ×2 (11:43→23:20)
[2018-07-12 11:49] LABS: Glucose,Whole Blood 367 mg/dL (75-99)
--- NOTE | 2018-07-12 13:57 | P.PN ---
Subjective this is a 72 yo Female with past medical history of COPD, recent history of cervical spine fusion done on 06/24/2018 as per pt with at [facility] for long history of degenerative joint disease , she has hard collar in place, presents because she passed out twice associated with sever coughing, pt and confirm to me she has history of COPD that follow up wiht although pt denies history of smoking cigarette in the past before, now presents with worsening dyspnea and cough with creamy phlegm for the last few days. she has no chest pain but she has right shoulder pain after she fell twice as above. vitals are stable, she is saturating 92%on room air. her WBC 10.7 K, Hb 11.8, platelets 292. sodium 136, potassium 1.4 , magnesium 1.4, creatinine 0.42, troponin less than 0.012. her right shoulder xray is negative for fracture or dislocation, left shoulder xray : acromiocalvicular arthropathy with steopenia , her brain CT : no acute process. Cervical CT: no fracture or dislocation , post surgical changes at C4- 7. CXR: no pneumonia, bronchitis. 07/11/2018 Today we discussed the case with pulmonary team. Patient looks like she is with past medical history of asthma rather than COPD. Pulmonary input is appreciated.Patients is fully awake and oriented. Her breathing is improving. Looks like her main problem is hoarseness of the voice anddifficulty swallowing after she had the surgery for the last 3 weeks. Patient had a swallow evaluation today showing no evidence of aspiration. ENT team have been consulted. Cardiology evaluated the patient and recommended to continue with telemetry and echocardiogram. She is hemodynamically stable. WBC 11.4 K. Creatinine 0.4. Urinalysis is susp icious for infection, urine culture sent. Shoulder x-ray: No fracture. 07/12/2018 Patient still has hoarseness of voice, she has moderate to severe cough, with yellow phlegm. She has some dyspnea at time but currently her breathing is quiet. No use of accessory muscles. She couldn't talk freely with no difficulty. No more syncope while in hospital. Cough Medicine is a provided. ENT team were consulted. Also patient has a bruise in her left lower leg and pain in the ankle when she walks, secondary to fall from her syncope. Left ankle x-ray was negative. We will do left leg and foot x-ray and Doppler to rule out DVT. Vitals are stable. CBC and BMP were unremarkable, sugar is more than 350, she is currently on Levemir 13 is at bedtime, and 20 units daily. Patient currently on steroids Review of systems CONSTITUTIONAL: No fever, no malaise, no fatigue. HEENT: No recent visual problems or hearing problems. Denied any sore throat. CARDIOVASCULAR: No orthopnea, PND, no palpitations, no syncope. PULMONARY: no hemoptysis. GASTROINTESTINAL: No diarrhea, no nausea, no vomiting, no abdominal pain. Normoactive bowel sounds. NEUROLOGICAL: No headaches, no weakness, no numbness. HEMATOLOGICAL: Denies any bleeding or petechiae. GENITOURINARY: Denies any burning micturition, frequency, or urgency. MUSCULOSKELETAL/RHEUMATOLOGICAL: Denies any joint pain, swelling, or any muscle pain. ENDOCRINE: Denies any polyuria or polydipsia. Medication: Albuterol 0.5 mg, Lipitor 80 mg, baclofen 10 mg, Pulmicort 0.5 mg, Klonopin 0.5 mg, Bentyl 10 mg, doxycycline 100 mg, Cymbalta 30 mg, vitamin D 50,000 units, Cipro 5 mg, Pepcid 20 mg, fenofibrate 160 mg, heparin 5000 units, levemir insulin, Imdur 30 mg, lidocaine patch, lisinopril/hydrochlorothiazide 10-12.5 mg, Solu-Medrol 40 mg, modafinil 200 mg, single layer 10 mg, Berny- Synephrine 500 mg, Percocet 5-325 mg, tone is 40 mg, pramipexole 1 mg, Lyrica 200 mg, senna/decussate, sodium chloride Objective - Vital Signs Vital signs: Vital Signs Temp 98 F 07/12/18 12:55 Pulse 113 H 07/12/18 12:55 Resp 20 07/12/18 12:55 BP 121/72 07/12/18 12:55 Pulse Ox 94 L 07/12/18 12:55 Intake & Output 07/11/18 07/12/18 07/12/18 18:59 06:59 18:59 Intake Total 340 200 Balance 340 200 Weight 68.946 kg Intake: Intake, IV Titration 340 Amount Doxycycline 100 mg In 100 Sodium Chloride 0.9% 100 ml @ 100 mls/hr IVPB Q12HR [facility] Rx#:[id number] Sodium Chloride 0.9% 1, 240 000 ml @ 20 mls/hr IV . Q24H [facility] Rx#:[id number] Oral 200 Other: Voiding Method Toilet Toilet Toilet # Voids 2 1 - Exam GENERAL: The patient is alert and oriented x3, not in any acute distress. Well developed, well nourished. -HEENT: Pupils are round and equally reacting to light. EOMI. No scleral icterus. No conjunctival pallor. Normocephalic, atraumatic. No pharyngeal erythema. No thyromegaly. Hoarseness of voice, Hard collar is in place CARDIOVASCULAR: S1 and S2 present. No murmurs, rubs, or gallops. -PULMONARY: Chest is clear to auscultation, expiratory wheezing ABDOMEN: Soft, nontender, nondistended, normoactive bowel sounds. No palpable organomegaly. MUSCULOSKELETAL: No joint swelling or deformity. EXTREMITIES: No cyanosis, clubbing, or pedal edema. NEUROLOGICAL: Gross neurological examination did not reveal any focal deficits. SKIN: No rashes. - Labs CBC & Chem 7: 07/12/18 06:20 07/12/18 06:20 Labs: Abnormal Lab Results - Last 24 Hours (Table) 07/11/18 07/11/18 07/12/18 Range/Units 16:58 19:51 02:03 Neutrophils # (1.3-7.7) k/uL Lymphocytes # (1.0-4.8) k/uL BUN (7-17) mg/dL Glucose (74-99) mg/dL POC Glucose (mg/dL) 439 H 378 H 382 H (75-99) mg/dL 07/12/18 07/12/18 07/12/18 Range/Units 06:20 06:20 07:01 Neutrophils # 8.9 H (1.3-7.7) k/uL Lymphocytes # 0.5 L (1.0-4.8) k/uL BUN 21 H (7-17) mg/dL Glucose 334 H (74-99) mg/dL POC Glucose (mg/dL) 385 H (75-99) mg/dL 05/25/19 Range/Units 11:47 Neutrophils # (1.3-7.7) k/uL Lymphocytes # (1.0-4.8) k/uL BUN (7-17) mg/dL Glucose (74-99) mg/dL POC Glucose (mg/dL) 367 H (75-99) mg/dL Microbiology - Last 24 Hours (Table) 07/11/18 16:20 Urine Culture - Preliminary Urine,Clean Catch Assessment and Plan Assessment: acute asthma exacerbation Hoarseness of voice recent history of cervical spine fusion , C4-7, with hard collar is in place. syncope , mostly related to coughing right shoulder injury secondary to trauma from syncope. with no fracture on xray hypertension Hyperlipidemia Diabetes Mellitus, type II Diabetic neuropathy History of coronary artery disease History of CVA with mild residual right hemiparesis History of fall History of lichen sclerosis History of GERD History of narcolepsy History of stress urine incontinence History of Irritable bowel syndrome Plan: this is a pleasant 72 yo F who presents with COPD And syncope, her syncope mostly related to cough but it is worth excluding cardiac causes so we call cardiology consult . telemetry. continue with breathing treatment. steroid , oxygen , and antibiotic. ENT consult is called. insulin sliding scale . Labs and medication were reviewed.. Continue same treatment. Continue with symptomatic treatment. Resume home medication. Monitor lytes and vitals. DVT and GI prophylaxis. Further recommendations of the clinical course of the patient DVT prophylaxis: Subcutaneous heparin GI Prophylaxis: PPI PT/OT: Pending Prognosis is guarded
--- NOTE | 2018-07-12 14:11 | P.PN ---
Subjective Progress Note Date: 07/12/18 On 07/12/2018, the patient is being seen for a follow-up. Clinically improving. Cough has subsided. Her voice remains quite hoarse and ENT did not evaluate this patient while her in the hospital and he wanted to an outpatient evaluation. The swallow is adequate for now. She is not aspirating for the time being. She remains on systemic steroids. No chest pain. No syncope. No nausea. No vomiting. No abdominal pain. No other significant events overnight. She remains on bronchodilators and she remains on systemic steroids. Objective - Vital Signs Vital signs: Vital Signs Temp 98 F 07/12/18 12:55 Pulse 113 H 07/12/18 12:55 Resp 20 07/12/18 12:55 BP 121/72 07/12/18 12:55 Pulse Ox 94 L 07/12/18 12:55 Intake & Output 07/11/18 07/12/18 07/12/18 18:59 06:59 18:59 Intake Total 340 200 Balance 340 200 Weight 68.946 kg Intake: Intake, IV Titration 340 Amount Doxycycline 100 mg In 100 Sodium Chloride 0.9% 100 ml @ 100 mls/hr IVPB Q12HR [facility] Rx#:[id number] Sodium Chloride 0.9% 1, 240 000 ml @ 20 mls/hr IV . Q24H [facility] Rx#:[id number] Oral 200 Other: Voiding Method Toilet Toilet Toilet # Voids 2 1 - Exam General Appearance no diaphoresis, no respiratory distress, speech not interrupted by breaths, no dyspnea, no pallor, not cachectic, well nourished, appears well, obesity HEENT no pursed lip breathing, no jugular venous distention, no mucous membrane cyanosis, no perioral cyanosis, mallampati classification: class 1, Mallampati Classification: Class 3 Chest no barrel chest, no retractions, no sternocleidomastoid muscle contractions, no supraclavicular retractions, no intercostal retractions, prolonged expiratory wheezing, decreased air movement, no rhonchi, no hyperinflation, (normal) adventitious sounds: rales / crackles: bilaterally: midlung cuevas, decreased air movement Heart no right ventricular heave, no distant heart sounds, no s3 gallop, (normal) jugular vein: jugular venous distention: by 0cm, (normal) jugular vein GI bowel sounds: hyperactive (borborygmi), bowel sounds: diminished or absent Extremities no cyanosis, no clubbing, no edema Neurologic no decreased mental status, no somnolence, no confusion Assisstive Devices: ambulates with no assitive devices Gait and Mobility: gait WNL, full weight bearing Skin General Appearance normal, (normal) normal except as noted - Labs CBC & Chem 7: 07/12/18 06:20 07/12/18 06:20 Labs: Abnormal Lab Results - Last 24 Hours (Table) 07/11/18 07/11/18 07/12/18 Range/Units 16:58 19:51 02:03 Neutrophils # (1.3-7.7) k/uL Lymphocytes # (1.0-4.8) k/uL BUN (7-17) mg/dL Glucose (74-99) mg/dL POC Glucose (mg/dL) 439 H 378 H 382 H (75-99) mg/dL 07/12/18 07/12/18 07/12/18 Range/Units 06:20 06:20 07:01 Neutrophils # 8.9 H (1.3-7.7) k/uL Lymphocytes # 0.5 L (1.0-4.8) k/uL BUN 21 H (7-17) mg/dL Glucose 334 H (74-99) mg/dL POC Glucose (mg/dL) 385 H (75-99) mg/dL 07/12/18 Range/Units 11:47 Neutrophils # (1.3-7.7) k/uL Lymphocytes # (1.0-4.8) k/uL BUN (7-17) mg/dL Glucose (74-99) mg/dL POC Glucose (mg/dL) 367 H (75-99) mg/dL Microbiology - Last 24 Hours (Table) 07/11/18 16:20 Urine Culture - Preliminary Urine,Clean Catch Assessment and Plan Plan: 1 acute exacerbation of chronic bronchial asthma, with secondary shortness of breath. Suspect also vocal cord paralysis following cervical spine surgery. Aspiration is also likely as the patient has been having difficulty with swallowing since her cervical spine surgery. 2 cough syncope 3 moderate to severe bronchial asthma limited on advancing her on outpatient ba sis and addition to albuterol perhaps on a when necessary basis 4 recent cervical spine fusion involving C4 through C7 and the patient is currently wearing a hard collar 5 right shoulder injury secondary to syncope without any fractures or dislocation 6 new onset hoarseness and some difficulty swallowing following cervical spine surgery 7 hypertension 8 hyperlipidemia. 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 I'm going to taper the Solu-Medrol to 40 mg every 8 hours. Aspiration precautions. Outpatient ENT evaluation with a high suspicion of the vocal cord paralysis. Keep the hard neck collar for now. Clinically improving. We'll continue to follow.
--- NOTE | 2018-07-12 14:49 | XR ---
Left foot HISTORY: Trauma and pain 3 views of the left foot Correlation to prior exam 09/07/2013 Bone mineralization, joint spaces and alignment are maintained. There is a plantar calcaneal spur. IMPRESSION: No fracture or dislocation.
--- NOTE | 2018-07-12 14:51 | XR ---
Left leg HISTORY: Trauma and pain 2 views of the left leg Bone mineralization is reduced. Alignment and joint spaces are maintained. IMPRESSION: No fracture or dislocation.
[2018-07-12] MEDS: guaiFENesin SYRUP 100MG/5ML 200 MG/10 ML CUP PO PRN (15:18)
[2018-07-12] MEDS: INSULIN DETEMIR (LEVEMIR) 100 UNIT/ML SYR SQ SCH (15:19)
--- NOTE | 2018-07-12 15:25 | US ---
EXAMINATION TYPE: US venous doppler duplex LE LT DATE OF EXAM: 07/12/2018 2:55 PM COMPARISON: US 2009, 2010, 2012 CLINICAL HISTORY: r/o dvt. Left leg swelling, exam done portable. SIDE PERFORMED: Left TECHNIQUE: The lower extremity deep venous system is examined utilizing real time linear array sonog christian with graded compression, doppler sonography and color-flow sonography. VESSELS IMAGED: External Iliac Vein (EIV) Common Femoral Vein Deep Femoral Vein Greater Saphenous Vein * Femoral Vein Popliteal Vein Small Saphenous Vein * Proximal Calf Veins (* superficial vessels) There is normal flow, compressibility, vascular waveforms. Left Leg: Appears negative for DVT IMPRESSION: No evident deep venous thrombosis at or above the left knee.
[2018-07-12] MEDS: ACETAMINOPHEN TAB 500 MG TAB PO PRN (17:14)
[2018-07-12 17:22] LABS: Glucose,Whole Blood 471 mg/dL (75-99)
[2018-07-12] MEDS: SODIUM CHLORIDE 0.9% 1,000 ML IV SCH (17:39)
[2018-07-12] MEDS ORDERED: INSULIN ASPART (NovoLOG) 100 UNIT/ML VIAL SQ ONE (17:52)
[2018-07-12 18:58] LABS: Hemoglobin A1C 8.4 % (4.0-6.0)
[2018-07-12 20:35] LABS: Glucose,Whole Blood 364 mg/dL (75-99)
[2018-07-12] MEDS ORDERED: INSULIN DETEMIR (LEVEMIR) 100 UNIT/ML SYR SQ SCH ×2 (21:00)
[2018-07-12] MEDS: ATORVASTATIN 80 MG TAB PO SCH (21:02)
[2018-07-12] MEDS: MONTELUKAST 10 MG TAB PO SCH (21:02)
[2018-07-12] MEDS: PRAMIPEXOLE 0.5 MG TAB PO SCH (21:02)
[2018-07-12] MEDS: ESCITALOPRAM 5 MG TAB PO SCH (21:02)
[2018-07-12] MEDS ORDERED: INSULIN DETEMIR (LEVEMIR) 100 UNIT/ML SYR SQ ONE (22:57)
[2018-07-12 23:30] LABS: Glucose,Whole Blood 425 mg/dL (75-99)
[2018-07-13] MEDS: BENZONATATE 100 MG CAP PO PRN ×2 (02:20→22:57)
[2018-07-13] MEDS: IPRATROPIUM-ALBUTEROL 3 ML NEB INHALATION SCH ×5 (04:17→19:58)
[2018-07-13] MEDS: guaiFENesin SYRUP 100MG/5ML 200 MG/10 ML CUP PO PRN ×2 (05:20→08:36)
[2018-07-13 07:20] LABS: Glucose,Whole Blood 184 mg/dL (75-99)
[2018-07-13 07:21] LABS: Basophils % (A) 0 %; Eosinophils % (A) 0 %; HCT 33.7 % (34.0-46.0); HGB 11.1 gm/dL (11.4-16.0); Lymphocytes # (A) 1.5 k/uL (1.0-4.8); Lymphocytes % (A) 13 %; MCH 28.5 pg (25.0-35.0); MCHC 32.9 g/dL (31.0-37.0); MCV 86.6 fL (80.0-100.0); Monocytes # (A) 0.6 k/uL (0-1.0); Monocytes % (A) 5 %; Neutrophils # (A) 9.8 k/uL (1.3-7.7); Neutrophils % (A) 81 %; Platelet Count 300 k/uL (150-450); RBC 3.89 m/uL (3.80-5.40); RDW 15.1 % (11.5-15.5); WBC 12.1 k/uL (3.8-10.6)
[2018-07-13] MEDS: BUDESONIDE 0.5 MG/2 ML NEBU INHALATION SCH ×2 (07:21→19:58)
[2018-07-13 07:37] LABS: Anion Gap 7 mmol/L; Blood Urea Nitrogen 26 mg/dL (7-17); Calcium 9.9 mg/dL (8.4-10.2); Carbon Dioxide 27 mmol/L (22-30); Chloride 106 mmol/L (98-107); Glucose 201 mg/dL (74-99); Magnesium 1.6 mg/dL (1.6-2.3); Potassium 3.8 mmol/L (3.5-5.1); Sodium 140 mmol/L (137-145)
--- NOTE | 2018-07-13 08:18 | P.PN ---
Subjective Progress Note Date: 07/13/18 Principal diagnosis: Syncope The patient is a 72-year-old female who is being followed for posttussive syncope. Patient states she had an additional episode of syncope yesterday w tamara sitting in the chair, however nursing staff was unaware of this episode. She states she was having a coughing spell when this happened and her cousin was at the bedside. Telemetry strips reviewed; no tachycardia or bradycardia arrhythmias noted; no pauses. Overall she feels as though her coughing is improving. She denies any chest discomfort, palpitations, dyspnea, or dizziness. On exam she is currently resting comfortably in bed with her cervical collar on. She is in no acute distress. Echocardiogram shows normal LV function with mild aortic stenosis, mild mitral regurgitation, and mild tricuspid regurgitation. Objective - Vital Signs Vital signs: Vital Signs Temp 98.6 F 07/13/18 04:37 Pulse 84 07/13/18 07:40 Resp 18 07/13/18 04:37 BP 116/76 07/13/18 04:37 Pulse Ox 96 07/13/18 04:37 Intake & Output 07/12/18 07/13/18 07/13/18 18:59 06:59 18:59 Intake Total 120 Balance 120 Intake: Oral 120 Other: Voiding Method Toilet Toilet # Voids 2 1 # Bowel Movements 2 - Exam GENERAL: Well-appearing, well-nourished and in no acute distress. NECK: Supple without JVD. Cervical collar in place LUNGS: Breath sounds clear to auscultation bilaterally. Respiration equal and unlabored. No wheezes, rales or rhonchi. HEART: Regular rate and rhythm without murmurs, rubs or gallops. S1 and S2 heard. EXTREMITIES: Normal range of motion, no edema. No clubbing or cyanosis. Peripheral pulses intact and strong. Left lower extremity tender to palpation. - Labs CBC & Chem 7: 07/13/18 06:47 07/13/18 06:47 Labs: Abnormal Lab Results - Last 24 Hours (Table) 07/12/18 07/12/18 07/12/18 Range/Units 06:20 11:47 17:20 WBC (3.8-10.6) k/uL Hgb (11.4-16.0) gm/dL Hct (34.0-46.0) % Neutrophils # (1.3-7.7) k/uL BUN (7-17) mg/dL Glucose (74-99) mg/dL POC Glucose (mg/dL) 367 H 471 H (75-99) mg/dL Hemoglobin A1c 8.4 H (4.0-6.0) % 07/12/18 07/12/18 07/13/18 Range/Units 20:30 23:22 06:47 WBC 12.1 H (3.8-10.6) k/uL Hgb 11.1 L (11.4-16.0) gm/dL Hct 33.7 L (34.0-46.0) % Neutrophils # 9.8 H (1.3-7.7) k/uL BUN (7-17) mg/dL Glucose (74-99) mg/dL POC Glucose (mg/dL) 364 H 425 H (75-99) mg/dL Hemoglobin A1c (4.0-6.0) % 07/13/18 07/13/18 Range/Units 06:47 07:18 WBC (3.8-10.6) k/uL Hgb (11.4-16.0) gm/dL Hct (34.0-46.0) % Neutrophils # (1.3-7.7) k/uL BUN 26 H (7-17) mg/dL Glucose 201 H (74-99) mg/dL POC Glucose (mg/dL) 184 H (75-99) mg/dL Hemoglobin A1c (4.0-6.0) % Microbiology - Last 24 Hours (Table) 07/11/18 16:20 Urine Culture - Final Urine,Clean Catch Assessment and Plan Assessment: Posttussive syncope Bronchitis History of coronary artery disease Plan: Continue with current regimen and treatment for bronchitis. Continue cough suppressants. Discontinue telemetry upon discharge. Patient may go home from a cardiac standpoint and follow up outpatient with primary waiter/waitress take out.
[2018-07-13] MEDS: INSULIN ASPART (NovoLOG) 100 UNIT/ML VIAL SQ SCH ×4 (08:35→22:03)
[2018-07-13] MEDS: PANTOPRAZOLE 40 MG TABLET PO SCH (08:36)
[2018-07-13] MEDS: ISOSORBIDE MONONITRATE ER 30 MG TAB.ER.24H PO SCH (08:36)
[2018-07-13] MEDS: SENNOSIDES-DOCUSATE SODIUM 1 EACH TAB PO SCH ×2 (08:36→21:43)
[2018-07-13] MEDS: predniSONE 20 MG TAB PO SCH (08:36)
[2018-07-13] MEDS: BACLOFEN 10 MG TAB PO SCH ×2 (08:37→21:40)
[2018-07-13] MEDS: DICYCLOMINE 10 MG CAP PO SCH ×5 (08:37→19:18)
[2018-07-13] MEDS: DOXYCYCLINE 100 MG in SODIUM CHLORIDE 0.9% 100 ML IVPB SCH ×2 (08:37→21:41)
[2018-07-13] MEDS: HEPARIN SODIUM,PORCINE 5,000 UNIT/ML 1 ML VIAL SQ SCH ×2 (08:37→21:41)
[2018-07-13] MEDS: INSULIN DETEMIR (LEVEMIR) 100 UNIT/ML SYR SQ SCH (08:37)
[2018-07-13] MEDS: PREGABALIN 100 MG CAP PO SCH ×3 (08:37→21:44)
[2018-07-13] MEDS: DULoxetine HCL 30 MG CAPSULE.DR PO SCH (08:38)
[2018-07-13] MEDS: FENOFIBRATE 160 MG TAB PO SCH (08:38)
[2018-07-13] MEDS: LIDOCAINE 5% PATCH TOPICAL SCH (08:38)
[2018-07-13] MEDS: LISINOPRIL-HCTZ 10-12.5 MG 1 EACH TAB PO SCH (08:40)
[2018-07-13] MEDS: NIACIN TR 500 MG CAPLET PO SCH (08:41)
[2018-07-13] MEDS: ACETAMINOPHEN TAB 500 MG TAB PO PRN ×2 (08:48→17:42)
[2018-07-13 11:46] LABS: Glucose,Whole Blood 173 mg/dL (75-99)
--- NOTE | 2018-07-13 12:47 | P.PN ---
Subjective Progress Note Date: 07/13/18 on 07/13/2018, I'm seeing this patient for a follow-up. The patient is doing well. On and off she is still coughing. Nevertheless these coughing spells of subsided significantly. She is not having any syncope. Her cardiac status is stable. She is swallowing food well. She is still on IV Solu-Medrol. She is also on doxycycline. She may need another 24 hours for recovery. She is wearing her neck collar. ENT evaluation will be done outpatient basis. Objective - Vital Signs Vital signs: Vital Signs Temp 98.6 F 07/13/18 04:37 Pulse 78 07/13/18 11:51 Resp 18 07/13/18 09:16 BP 116/76 07/13/18 04:37 Pulse Ox 96 07/13/18 04:37 Intake & Output 07/12/18 07/13/18 07/13/18 18:59 06:59 18:59 Intake Total 120 120 Balance 120 120 Intake: Oral 120 120 Other: Voiding Method Toilet Toilet Toilet # Voids 2 1 1 # Bowel Movements 2 - Exam General Appearance no diaphoresis, no respiratory distress, speech not interrupted by breaths, no dyspnea, no pallor, not cachectic, well nourished, appears well, obesity HEENT no pursed lip breathing, no jugular venous distention, no mucous membrane cyanosis, no perioral cyanosis, mallampati classification: class 1, Mallampati Classification: Class 3 Chest no barrel chest, no retractions, no sternocleidomastoid muscle contractions, no supraclavicular retractions, no intercostal retractions, prolonged expiratory wheezing, decreased air movement, no rhonchi, no hyperinflation, (normal) adventitious sounds: rales / crackles: bilaterally: midlung cuevas, decreased air movement Heart no right ventricular heave, no distant heart sounds, no s3 gallop, (normal) jugular vein: jugular venous distention: by 0cm, (normal) jugular vein GI bowel sounds: hyperactive (borborygmi), bowel sounds: diminished or absent Extremities no cyanosis, no clubbing, no edema Neurologic no decreased mental status, no somnolence, no confusion Assisstive Devices: ambulates with no assitive devices Gait and Mobility: gait WNL, full weight bearing Skin General Appearance normal, (normal) normal except as noted - Labs CBC & Chem 7: 07/13/18 06:47 07/13/18 06:47 Labs: Abnormal Lab Results - Last 24 Hours (Table) 07/12/18 07/12/18 07/12/18 Range/Units 06:20 17:20 20:30 WBC (3.8-10.6) k/uL Hgb (11.4-16.0) gm/dL Hct (34.0-46.0) % Neutrophils # (1.3-7.7) k/uL BUN (7-17) mg/dL Glucose (74-99) mg/dL POC Glucose (mg/dL) 471 H 364 H (75-99) mg/dL Hemoglobin A1c 8.4 H (4.0-6.0) % 07/12/18 07/13/18 07/13/18 Range/Units 23:22 06:47 06:47 WBC 12.1 H (3.8-10.6) k/uL Hgb 11.1 L (11.4-16.0) gm/dL Hct 33.7 L (34.0-46.0) % Neutrophils # 9.8 H (1.3-7.7) k/uL BUN 26 H (7-17) mg/dL Glucose 201 H (74-99) mg/dL POC Glucose (mg/dL) 425 H (75-99) mg/dL Hemoglobin A1c (4.0-6.0) % 07/13/18 07/13/18 Range/Units 07:18 11:44 WBC (3.8-10.6) k/uL Hgb (11.4-16.0) gm/dL Hct (34.0-46.0) % Neutrophils # (1.3-7.7) k/uL BUN (7-17) mg/dL Glucose (74-99) mg/dL POC Glucose (mg/dL) 184 H 173 H (75-99) mg/dL Hemoglobin A1c (4.0-6.0) % Microbiology - Last 24 Hours (Table) 07/11/18 16:20 Urine Culture - Final Urine,Clean Catch Assessment and Plan Plan: 1 acute exacerbation of chronic bronchial asthma, with secondary shortness of breath. Suspect also vocal cord paralysis following cervical spine surgery. Aspiration is also likely as the patient has been having difficulty with swallowing since her cervical spine surgery.clinically the patient is improving. Her cough has subsided. 2 cough syncope, secondary to above 3 moderate to severe bronchial asthma limited on advancing her on outpatient basis and addition to albuterol perhaps on a when necessary basis 4 recent cervical spine fusion involving C4 through C7 and the patient is currently wearing a hard collar 5 right shoulder injury secondary to syncope without any fractures or dislocation 6 new onset hoarseness and some difficulty swallowing following cervical spine surgery 7 hypertension 8 hyperlipidemia. 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 continued IV Solu-Medrol and switch this patient to a prednisone burst taper. Discharge as per medicine. Either today or tomorrow. Ambulate in the hallway. Monitor cough. Cough suppressants if needed. Monitor blood sugar. The Doppler of the lower extremity came back negative.
--- NOTE | 2018-07-13 14:08 | ECHOF ---
Referral Reason:syncope MEASUREMENTS -------- HEIGHT: 129.5 cm WEIGHT: 68.9 kg BP: IVSd: 1.4 cm (0.6 - 1.1) LVIDd: 2.2 cm (3.9 - 5.3) LVPWd: 1.4 cm (0.6 - 1.1) IVSs: 1.7 cm LVIDs: 1.6 cm LVPWs: 1.6 cm LAESV Index (A-L): 20.24 ml/m Ao Diam: 2.5 cm (2.0 - 3.7) AV Cusp: 1.5 cm (1.5 - 2.6) LA Diam: 3.5 cm (2.7 - 3.8) MV EXCURSION: 12.148 mm (> 18.000) MV EF SLOPE: 72 mm/s (70 - 150) EPSS: 0.5 cm MV E Leonardo: 1.16 m/s MV DecT: 197 ms MV A Leonardo: 1.24 m/s MV E/A Ratio: 0.93 AV maxP.32 mmHg AV meanP.06 mmHg RAP: 5.00 mmHg RVSP: 32.27 mmHg FINDINGS -------- Resting tachycardia (HR>100bpm). This was a technically good study. The left ventricular size is normal. There is moderate concentric left ventricular hypertrophy. O verall left ventricular systolic function is normal with, an EF between 55 - 60 %. The right ventricle is normal in size. The left atrial size is normal. The right atrial size is normal. Interatrial and interventricular septum intact. Aortic valve is trileaflet and is mildly thickened. There is mild aortic valve sclerosis. Peak/me an gradient across the Aortic Valve is 17.32mmHg / 12.06mmHg. The mitral valve leaflets are mildly thickened. Mild mitral annular calcification present. Mild m itral regurgitation is present. Mild tricuspid regurgitation present. The right ventricular systolic pressure, as measured by Doppl er, is 32.27mmHg. There is no pulmonic regurgitation present. The aortic root size is normal. IVC Not well visulized. There is a small, generalized pericardial effusion present. CONCLUSIONS -------- 1. Resting tachycardia (HR>100bpm). 2. This was a technically good study. 3. The left ventricular size is normal. 4. There is moderate concentric left ventricular hypertrophy. 5. Overall left ventricular systolic function is normal with, an EF between 55 - 60 %. 6. The right ventricle is normal in size. 7. The left atrial size is normal. 8. The right atrial size is normal. 9. Interatrial and interventricular septum intact. 10. Aortic valve is trileaflet and is mildly thickened. 11. There is mild aortic valve sclerosis. 12. Peak/mean gradient across the Aortic Valve is 17.32mmHg / 12.06mmHg. 13. The mitral valve leaflets are mildly thickened. 14. Mild mitral annular calcification present. 15. Mild mitral regurgitation is present. 16. Mild tricuspid regurgitation present. 17. The right ventricular systolic pressure, as measured by Doppler, is 32.27mmHg. 18. There is no pulmonic regurgitation present. 19. The aortic root size is normal. 20. IVC Not well visulized. 21. There is a small, generalized pericardial effusion present. TELECOMMUNICATIONS CONSULTANT: Malena Massey RDCS
[2018-07-13] MEDS: MODAFINIL 100 MG TAB PO SCH (14:15)
[2018-07-13 17:07] LABS: Glucose,Whole Blood 294 mg/dL (75-99)
[2018-07-13] MEDS: SODIUM CHLORIDE 0.9% 1,000 ML IV SCH (17:38)
[2018-07-13] MEDS: guaiFENesin SYRUP 100MG/5ML 200 MG/10 ML CUP PO SCH (19:18)
[2018-07-13 20:01] LABS: Glucose,Whole Blood 319 mg/dL (75-99)
[2018-07-13] MEDS ORDERED: INSULIN DETEMIR (LEVEMIR) 100 UNIT/ML SYR SQ SCH (21:00)
[2018-07-13] MEDS: ESCITALOPRAM 5 MG TAB PO SCH (21:41)
[2018-07-13] MEDS: MONTELUKAST 10 MG TAB PO SCH (21:41)
[2018-07-13] MEDS: ATORVASTATIN 80 MG TAB PO SCH (21:41)
[2018-07-13] MEDS: oxyCODONE-APAP 5-325MG 1 EACH TAB PO PRN (21:41)
[2018-07-13] MEDS: PRAMIPEXOLE 0.5 MG TAB PO SCH (21:42)
--- NOTE | 2018-07-13 21:58 | P.PN ---
Subjective this is a 72 yo Female with past medical history of COPD, recent history of cervical spine fusion done on 06/24/2018 as per pt with at [facility] for long history of degenerative joint disease , she has hard collar in place, presents because she passed out twice associated with sever coughing, pt and confirm to me she has history of COPD that follow up wiht although pt denies history of smoking cigarette in the past before, now presents with worsening dyspnea and cough with creamy phlegm for the last few days. she has no chest pain but she has right shoulder pain after she fell twice as above. vitals are stable, she is saturating 92%on room air. her WBC 10.7 K, Hb 11.8, platelets 292. sodium 136, potassium 1.4 , magnesium 1.4, creatinine 0.42, troponin less than 0.012. her right shoulder xray is negative for fracture or dislocation, left shoulder xray : acromiocalvicular arthropathy with steopenia , her brain CT : no acute process. Cervical CT: no fracture or dislocation , post surgical changes at C4- 7. CXR: no pneumonia, bronchitis. 07/11/2018 Today we discussed the case with pulmonary team. Patient looks like she is with past medical history of asthma rather than COPD. Pulmonary input is appreciated.Patients is fully awake and oriented. Her breathing is improving. Looks like her main problem is hoarseness of the voice anddifficulty swallowing after she had the surgery for the last 3 weeks. Patient had a swallow evaluation today showing no evidence of aspiration. ENT team have been consulted. Cardiology evaluated the patient and recommended to continue with telemetry and echocardiogram. She is hemodynamically stable. WBC 11.4 K. Creatinine 0.4. Urinalysis is susp icious for infection, urine culture sent. Shoulder x-ray: No fracture. 07/12/2018 Patient still has hoarseness of voice, she has moderate to severe cough, with yellow phlegm. She has some dyspnea at time but currently her breathing is quiet. No use of accessory muscles. She couldn't talk freely with no difficulty. No more syncope while in hospital. Cough Medicine is a provided. ENT team were consulted. Also patient has a bruise in her left lower leg and pain in the ankle when she walks, secondary to fall from her syncope. Left ankle x-ray was negative. We will do left leg and foot x-ray and Doppler to rule out DVT. Vitals are stable. CBC and BMP were unremarkable, sugar is more than 350, she is currently on Levemir 13 is at bedtime, and 20 units daily. Patient currently on steroids pt is doing well clinically , she is with no more syncope , she is still coughing but says her cough medicine is helping her , no chest pian or dyspnea , her cough is controlled with two medicines , robitussin scheduled and tesselon prn , she still has some cough but no more syncope, cardiology team cleared the pt for discharge , pulmonary input is appreciated. pt is stable for discharge home she is only waiting for her to bring the insulin pump possible discharge home tomorrow Review of systems CONSTITUTIONAL: No fever, no malaise, no fatigue. HEENT: No recent visual problems or hearing problems. Denied any sore throat. CARDIOVASCULAR: No orthopnea, PND, no palpitations, no syncope. PULMONARY: no hemoptysis. GASTROINTESTINAL: No diarrhea, no nausea, no vomiting, no abdominal pain. Normoactive bowel sounds. NEUROLOGICAL: No headaches, no weakness, no numbness. HEMATOLOGICAL: Denies any bleeding or petechiae. GENITOURINARY: Denies any burning micturition, frequency, or urgency. MUSCULOSKELETAL/RHEUMATOLOGICAL: Denies any joint pain, swelling, or any muscle pain. ENDOCRINE: Denies any polyuria or polydipsia. Medication: Albuterol 0.5 mg, Lipitor 80 mg, baclofen 10 mg, Pulmicort 0.5 mg, Klonopin 0.5 mg, Bentyl 10 mg, doxycycline 100 mg, Cymbalta 30 mg, vitamin D 50,000 units, Cipro 5 mg, Pepcid 20 mg, fenofibrate 160 mg, heparin 5000 units, levemir insulin, Imdur 30 mg, lidocaine patch, lisinopril/hydrochlorothiazide 10-12.5 mg, Solu-Medrol 40 mg, modafinil 200 mg, single layer 10 mg, Berny- Synephrine 500 mg, Percocet 5-325 mg, tone is 40 mg, pramipexole 1 mg, Lyrica 200 mg, senna/decussate, sodium chloride Objective - Vital Signs Vital signs: Vital Signs Temp 98 F 05/26/19 12:50 Pulse 84 07/13/18 20:12 Resp 16 07/13/18 20:12 BP 119/67 07/13/18 12:50 Pulse Ox 93 L 07/13/18 12:50 Intake & Output 07/13/18 07/13/18 07/14/18 06:59 18:59 06:59 Intake Total 120 120 Balance 120 120 Intake: Oral 120 120 Other: Voiding Method Toilet Toilet # Voids 1 2 - Exam GENERAL: The patient is alert and oriented x3, not in any acute distress. Well developed, well nourished. -HEENT: Pupils are round and equally reacting to light. EOMI. No scleral icterus. No conjunctival pallor. Normocephalic, atraumatic. No pharyngeal erythema. No thyromegaly. Hoarseness of voice, Hard collar is in place CARDIOVASCULAR: S1 and S2 present. No murmurs, rubs, or gallops. -PULMONARY: Chest is clear to auscultation, expiratory wheezing ABDOMEN: Soft, nontender, nondistended, normoactive bowel sounds. No palpable organomegaly. MUSCULOSKELETAL: No joint swelling or deformity. EXTREMITIES: No cyanosis, clubbing, or pedal edema. NEUROLOGICAL: Gross neurological examination did not reveal any focal deficits. SKIN: No rashes. - Labs CBC & Chem 7: 07/13/18 06:47 07/13/18 06:47 Labs: Abnormal Lab Results - Last 24 Hours (Table) 07/12/18 07/13/18 07/13/18 Range/Units 23:22 06:47 06:47 WBC 12.1 H (3.8-10.6) k/uL Hgb 11.1 L (11.4-16.0) gm/dL Hct 33.7 L (34.0-46.0) % Neutrophils # 9.8 H (1.3-7.7) k/uL BUN 26 H (7-17) mg/dL Glucose 201 H (74-99) mg/dL POC Glucose (mg/dL) 425 H (75-99) mg/dL 07/13/18 07/13/18 07/13/18 Range/Units 07:18 11:44 17:06 WBC (3.8-10.6) k/uL Hgb (11.4-16.0) gm/dL Hct (34.0-46.0) % Neutrophils # (1.3-7.7) k/uL BUN (7-17) mg/dL Glucose (74-99) mg/dL POC Glucose (mg/dL) 184 H 173 H 294 H (75-99) mg/dL 07/13/18 Range/Units 19:59 WBC (3.8-10.6) k/uL Hgb (11.4-16.0) gm/dL Hct (34.0-46.0) % Neutrophils # (1.3-7.7) k/uL BUN (7-17) mg/dL Glucose (74-99) mg/dL POC Glucose (mg/dL) 319 H (75-99) mg/dL Microbiology - Last 24 Hours (Table) 07/11/18 16:20 Urine Culture - Final Urine,Clean Catch Assessment and Plan Assessment: acute asthma exacerbation Hoarseness of voice recent history of cervical spine fusion , C4-7, with hard collar is in place. syncope , mostly related to coughing right shoulder injury secondary to trauma from syncope. with no fracture on xray hypertension Hyperlipidemia Diabetes Mellitus, type II Diabetic neuropathy History of coronary artery disease History of CVA with mild residual right hemiparesis History of fall History of lichen sclerosis History of GERD History of narcolepsy History of stress urine incontinence History of Irritable bowel syndrome Plan: this is a pleasant 72 yo F who presents with COPD And syncope, her syncope mostly related to cough but it is worth excluding cardiac causes so we call cardiology consult . telemetry. continue with breathing treatment. steroid , oxygen , and antibiotic. ENT consult is called. insulin sliding scale . Labs and medication were reviewed.. Continue same treatment. Continue with symptomatic treatment. Resume home medication. Monitor lytes and vitals. DVT and GI prophylaxis. Further recommendations of the clinical course of the patient DVT prophylaxis: Subcutaneous heparin GI Prophylaxis: PPI PT/OT: Pending Prognosis is guarded
[2018-07-14] MEDS: IPRATROPIUM-ALBUTEROL 3 ML NEB INHALATION SCH ×3 (01:00→07:01)
[2018-07-14] MEDS: guaiFENesin SYRUP 100MG/5ML 200 MG/10 ML CUP PO SCH ×2 (01:49→08:34)
[2018-07-14 05:14] VITALS: BP 115/72; TEMP 97.7
[2018-07-14] MEDS: BUDESONIDE 0.5 MG/2 ML NEBU INHALATION SCH (07:01)
[2018-07-14 07:16] VITALS: PULSE 78
[2018-07-14 07:16] LABS: Glucose,Whole Blood 99 mg/dL (75-99)
[2018-07-14 07:49] LABS: Basophils # (A) 0.1 k/uL (0-0.2); Basophils % (A) 1 %; Eosinophils # (A) 0.1 k/uL (0-0.7); Eosinophils % (A) 1 %; HCT 34.1 % (34.0-46.0); HGB 11.5 gm/dL (11.4-16.0); Lymphocytes # (A) 1.6 k/uL (1.0-4.8); Lymphocytes % (A) 19 %; MCH 28.9 pg (25.0-35.0); MCHC 33.8 g/dL (31.0-37.0); MCV 85.6 fL (80.0-100.0); Mean Platelet Volume 7.9; Monocytes # (A) 0.4 k/uL (0-1.0); Monocytes % (A) 5 %; Neutrophils # (A) 5.9 k/uL (1.3-7.7); Neutrophils % (A) 72 %; Platelet Count 247 k/uL (150-450); RBC 3.99 m/uL (3.80-5.40); RDW 14.8 % (11.5-15.5); WBC 8.2 k/uL (3.8-10.6)
[2018-07-14 08:04] LABS: Anion Gap 7 mmol/L; Blood Urea Nitrogen 28 mg/dL (7-17); Calcium 9.4 mg/dL (8.4-10.2); Carbon Dioxide 28 mmol/L (22-30); Chloride 104 mmol/L (98-107); Glucose 93 mg/dL (74-99); Potassium 3.7 mmol/L (3.5-5.1); Sodium 139 mmol/L (137-145)
[2018-07-14] MEDS: PREGABALIN 100 MG CAP PO SCH (08:33)
[2018-07-14] MEDS: LIDOCAINE 5% PATCH TOPICAL SCH (08:34)
[2018-07-14] MEDS: ISOSORBIDE MONONITRATE ER 30 MG TAB.ER.24H PO SCH (08:34)
[2018-07-14] MEDS: BACLOFEN 10 MG TAB PO SCH (08:34)
[2018-07-14] MEDS: PANTOPRAZOLE 40 MG TABLET PO SCH (08:34)
[2018-07-14] MEDS: DOXYCYCLINE 100 MG in SODIUM CHLORIDE 0.9% 100 ML IVPB SCH (08:35)
[2018-07-14] MEDS: HEPARIN SODIUM,PORCINE 5,000 UNIT/ML 1 ML VIAL SQ SCH (08:37)
[2018-07-14] MEDS: INSULIN ASPART (NovoLOG) 100 UNIT/ML VIAL SQ SCH (08:37)
[2018-07-14] MEDS: DICYCLOMINE 10 MG CAP PO SCH (08:37)
[2018-07-14] MEDS: DULoxetine HCL 30 MG CAPSULE.DR PO SCH (08:38)
[2018-07-14] MEDS: INSULIN DETEMIR (LEVEMIR) 100 UNIT/ML SYR SQ SCH (08:38)
[2018-07-14] MEDS: FENOFIBRATE 160 MG TAB PO SCH (08:38)
[2018-07-14] MEDS: NIACIN TR 500 MG CAPLET PO SCH (08:38)
[2018-07-14] MEDS: LISINOPRIL-HCTZ 10-12.5 MG 1 EACH TAB PO SCH (08:38)
[2018-07-14] MEDS: SENNOSIDES-DOCUSATE SODIUM 1 EACH TAB PO SCH (08:39)
[2018-07-14] MEDS: oxyCODONE-APAP 5-325MG 1 EACH TAB PO PRN (09:27)
[2018-07-14] MEDS: MODAFINIL 100 MG TAB PO SCH (09:27)
[2018-07-14] MEDS ORDERED: MODAFINIL 200 MG TAB PO SCH (09:30)
[2018-07-14] MEDS: predniSONE 20 MG TAB PO SCH (11:03)
[2018-07-14 11:39] VITALS: RESP 16
[2018-07-14] MEDS ORDERED: ERGOCALCIFEROL 50,000 UNIT CAP PO SCH (15:09)
== END 2018-07-14 12:15 | disposition home or self-care (01) | DRG 202 ==
LOC: EC 11:15 → 3NMEDONC 15:07
PROVIDERS: ADMIT Internal Medicine; ATTEND Internal Medicine
DX: J45.51 Severe persistent asthma with (acute) exacerbation (principal); I69.351 Hemiplegia and hemiparesis following cerebral infarction affecting right dominant side; E11.42 Type 2 diabetes mellitus with diabetic polyneuropathy; E78.5 Hyperlipidemia, unspecified; F32.9 Major depressive disorder, single episode, unspecified; G25.81 Restless legs syndrome; G47.10 Hypersomnia, unspecified; G47.419 Narcolepsy without cataplexy; I10 Essential (primary) hypertension; J44.9 Chronic obstructive pulmonary disease, unspecified; I25.10 Atherosclerotic heart disease of native coronary artery without angina pectoris; K21.9 Gastro-esophageal reflux disease without esophagitis; K58.9 Irritable bowel syndrome, unspecified; M81.0 Age-related osteoporosis without current pathological fracture; F41.9 Anxiety disorder, unspecified; E83.42 Hypomagnesemia; R55 Syncope and collapse; R49.0 Dysphonia; Z79.4 Long term (current) use of insulin; Z79.899 Other long term (current) drug therapy; Z80.51 Family history of malignant neoplasm of kidney; Z82.3 Family history of stroke; Z82.49 Family history of ischemic heart disease and other diseases of the circulatory system; Z83.3 Family history of diabetes mellitus; Z90.710 Acquired absence of both cervix and uterus; Z98.1 Arthrodesis status; Z88.5 Allergy status to narcotic agent; Z88.6 Allergy status to analgesic agent; Z88.8 Allergy status to other drugs, medicaments and biological substances; Z91.048 Other nonmedicinal substance allergy status; Z87.01 Personal history of pneumonia (recurrent); Z98.890 Other specified postprocedural states; Z98.42 Cataract extraction status, left eye; Z98.41 Cataract extraction status, right eye; Z90.49 Acquired absence of other specified parts of digestive tract; Z87.42 Personal history of other diseases of the female genital tract; Z91.81 History of falling
CPT/HCPCS: 36415; 70450; 71046; 72125; 74230; 80048; 80053; 81001; 82550; 83036; 83735; 84484; 85025; 85610; 85730; 87086; 93005; 93306; 94640; 96365; 99291

== ENCOUNTER → 2018-08-29 | Outpatient (CLI) | payer MEDICARE, OTHER ==
[2018-08-29 16:17] LABS: LDL Cholesterol,Calculated 82.2 mg/dL (0.0-131.0); VLDL Calculation 54.8 mg/dL (5.00-40.00)
== END | disposition home or self-care (01) ==
LOC: LABWHC1 08:18
PROVIDERS: ATTEND Nurse Practitioner Adult Health
DX: E78.2 Mixed hyperlipidemia (principal)
CPT/HCPCS: 36415; 80061; 84450; 84460

== ENCOUNTER → 2018-11-07 | Outpatient (CLI) | payer MEDICARE, OTHER ==
--- NOTE | 2018-11-11 08:34 | MM ---
Reason for exam: screening (asymptomatic). Last mammogram was performed 1 year and 1 month ago. History: Patient is postmenopausal and has history of high-risk lesion on a previous biopsy at age 63. Family history of premenopausal breast cancer in sister at age 37 and breast cancer in grandmother at age 56. Benign MG stereo VAD BX RT of the right breast, February 23, 2015. Benign right breast needle localzation of the right breast, June 07, 2009. High risk US right guided VAD of the right breast, May 31, 2009. Took estrogen for 10 years. Physical Findings: A clinical breast exam by your physician is recommended on an annual basis and results should be correlated with mammographic findings. MG 3D Screening Mammo W/Cad Bilateral CC and MLO view(s) were taken. Prior study comparison: October 02, 2017, bilateral MG 3d screening mammo w/cad. February 14, 2016, bilateral MG screening mammo w CAD. The breast tissue is heterogeneously dense. This may lower the sensitivity of mammography. Scattered focal asymmetric are unchanged. No significant changes when compared with prior studies. ASSESSMENT: Negative, BI-RAD 1 RECOMMENDATION: Routine screening mammogram of both breasts in 1 year.
== END | disposition home or self-care (01) ==
LOC: RADMAMWWP 10:42
PROVIDERS: ATTEND Family Medicine
DX: Z12.31 Encounter for screening mammogram for malignant neoplasm of breast (principal)
CPT/HCPCS: 77063; 77067

== ENCOUNTER 2019-06-29 09:24 | Inpatient (IN) | payer MEDICARE, OTHER ==
[2019-06-29 09:43] LABS: Glucose,Whole Blood 332 mg/dL (75-99)
[2019-06-29] MEDS ORDERED: SODIUM CHLORIDE 0.9% 1,000 ML IV STA ×2 (09:59)
[2019-06-29 10:08] LABS: Basophils # (A) 0.1 k/uL (0-0.2); Basophils % (A) 1 %; Eosinophils # (A) 0.2 k/uL (0-0.7); Eosinophils % (A) 3 %; HCT 40.8 % (34.0-46.0); HGB 13.3 gm/dL (11.4-16.0); Lymphocytes # (A) 0.8 k/uL (1.0-4.8); Lymphocytes % (A) 11 %; MCH 29.3 pg (25.0-35.0); MCHC 32.7 g/dL (31.0-37.0); MCV 89.7 fL (80.0-100.0); Mean Platelet Volume 7.6; Monocytes # (A) 0.3 k/uL (0-1.0); Monocytes % (A) 5 %; Neutrophils # (A) 5.6 k/uL (1.3-7.7); Neutrophils % (A) 79 %; Platelet Count 190 k/uL (150-450); RBC 4.55 m/uL (3.80-5.40); RDW 13.4 % (11.5-15.5)
[2019-06-29 10:23] LABS: ALT 29 U/L (4-34); AST 22 U/L (14-36); African American GFR (CKD) >90 (>60 ml/min/1.73 sqM); Albumin 4.3 g/dL (3.5-5.0); Alkaline Phosphatase 85 U/L (38-126); Anion Gap 13 mmol/L; Blood Urea Nitrogen 19 mg/dL (7-17); Calcium 9.5 mg/dL (8.4-10.2); Carbon Dioxide 23 mmol/L (22-30); Chloride 101 mmol/L (98-107); Glucose 312 mg/dL (74-99); Non-African American GFR(CKD) >90 (>60 ml/min/1.73 sqM); Potassium 4.2 mmol/L (3.5-5.1); Sodium 137 mmol/L (137-145); Total Bilirubin 0.4 mg/dL (0.2-1.3); Total Protein 7.1 g/dL (6.3-8.2)
[2019-06-29 10:26] LABS: INR 0.9 (<1.2); Partial Thromboplastin Time 22.1 sec (22.0-30.0); Prothrombin Time 9.4 sec (9.0-12.0)
--- NOTE | 2019-06-29 10:37 | CT ---
EXAMINATION TYPE: CT brain wo con for TPA DATE OF EXAM: 06/29/2019 COMPARISON: 07/10/2018 HISTORY: Lt facial droop and Lt side weakness CT DLP: 1065.[address] of the brain was performed. The ventricles, basal cisterns and sulci overlying the cerebral convexities demonstrate mild enlargem ent. There is no evidence for intracranial hemorrhage or sulcal effacement. There is decreased attenuation about the periventricular white matter and deep white matter of both c erebral hemispheres, compatible with chronic small vessel ischemia. Differential diagnosis does inclu de demyelination. No mass effects are seen.No midline shift. Osseous calvarium is intact. If symptoms persist consider MRI. IMPRESSION: 1. Age related atrophic and chronic small vessel ischemic change without acute intracranial process s een at this time.
--- NOTE | 2019-06-29 10:38 | ED ---
Dizziness HPI - General Chief Complaint: Dizziness Stated Complaint: neuro/sent by pcp Time Seen by Provider: 06/29/19 09:43 Source: patient, RN notes reviewed, old records reviewed Mode of arrival: wheelchair Limitations: no limitations - History of Present Illness Initial Comments: Patient is a 73-year-old female who presents emergency Department today with onset of dizziness left-sided weakness upon awakening yesterday morning. Patient reports a history of TIA and history of coronary artery disease and no stents. Patient states that the feeling somewhat dizzy, drooling complaining of left-sided facial numbness and arm weakness. - Related Data Home Medications Medication Instructions Recorded Confirmed Atorvastatin [Lipitor] 80 mg PO HS 03/21/14 07/10/18 Baclofen 10 mg PO BID 03/21/14 07/10/18 Dicyclomine [Bentyl] 10 mg PO QID 03/21/14 07/10/18 Pantoprazole Sodium [Protonix] 40 mg PO DAILY 03/21/14 07/10/18 Pramipexole Di-HCl [Mirapex] 1 mg PO HS 03/21/14 07/10/18 Pregabalin [Lyrica] 200 mg PO TID 03/21/14 07/10/18 Lidocaine 5% Patch [Lidoderm 5% 1 patch TOPICAL DAILY 03/09/15 07/10/18 Patch] Montelukast [Singulair] 10 mg PO HS 04/11/15 07/10/18 DULoxetine HCL [Cymbalta] 30 mg PO DAILY 05/06/17 07/10/18 Escitalopram [Lexapro] 5 mg PO HS 05/06/17 07/10/18 Albuterol Nebulized [Ventolin 2.5 mg INHALATION RT-QID 06/05/17 07/10/18 Nebulized] Fluticasone/Salmeterol [Advair 1 puff INHALATION RT-BID 06/05/17 07/10/18 250-50 Diskus] Modafinil [Provigil] 200 mg PO QAM 06/05/17 07/10/18 Ergocalciferol (Vitamin D2) 50,000 unit PO MO 03/19/18 07/10/18 [Vitamin D2] Fenofibrate Nanocrystallized 145 mg PO DAILY 03/19/18 07/10/18 [Tricor] Isosorbide Mononitrate ER [Imdur] 30 mg PO DAILY 03/19/18 07/10/18 Albuterol Sulfate [Proair Hfa] 2 puff INHALATION RT-Q6H PRN 07/10/18 07/10/18 Benzonatate [Benzonatate Perle] 200 mg PO TID PRN 07/10/18 07/10/18 Lisinopril-Hctz 10-12.5 mg 1 tab PO DAILY 07/10/18 07/10/18 [Zestoretic 10-12.5] Niacin 500 mg PO DAILY 07/10/18 07/10/18 Sennosides-Docusate Sodium 1 tab PO BID 07/10/18 07/10/18 [Senokot-S] clonazePAM 0.5 mg PO HS PRN 07/10/18 07/10/18 oxyCODONE-APAP 5-325MG [Percocet 1 tab PO BID PRN 07/10/18 07/10/18 5-325 mg] Previous Rx's Medication Instructions Recorded guaiFENesin SYRUP 100MG/5ML 200 mg PO Q6H 5 Days #1 cup 07/14/18 [Robitussin] predniSONE 10 mg PO DIRECTED #22 tab 07/14/18 Allergies Allergy/AdvReac Type Severity Reaction Status Date / Time aspirin Allergy Swelling Verified 07/10/18 11:54 ibuprofen Allergy Swelling Verified 07/10/18 11:54 ipratropium bromide Allergy Swelling Verified 07/10/18 11:54 [From Atrovent] meperidine HCl [From Demerol] Allergy Rash/Hives Verified 07/10/18 11:54 nickel Allergy Unknown Verified 07/10/18 11:54 hydromorphone HCl AdvReac Nausea & Verified 07/10/18 11:54 [From Dilaudid] Vomiting metformin AdvReac Unknown Verified 07/10/18 11:54 morphine AdvReac Vomiting Verified 07/10/18 11:54 trazodone AdvReac Weakness Verified 07/10/18 11:54 zolpidem tartrate AdvReac Hallucinati Verified 07/10/18 11:54 [From Ambien] ons MSG Allergy Rash/Hives Uncoded 05/05/18 12:37 Review of Systems ROS Statement: Those systems with pertinent positive or pertinent negative responses have been documented in the HPI. ROS Other: All systems not noted in ROS Statement are negative. 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, R breast benign lumpectomy, cardiac cath showed mild disease, umbilical hernia repair, D&C, bilateral cataract removals, EGD, colonoscopy with benign polyp, cystocele, rectocele, vuvular bx, liver bx d/t elevated LFT. Past Anesthesia/Blood Transfusion Reactions: No Reported Reaction Past Psychological History: Anxiety, Depression Smoking Status: Never smoker Past Alcohol Use History: None Reported Past Drug Use History: None Reported - Past Family History Mother Family Medical History: Hyperlipidemia, Hypertension Additional Family Medical History / Comment(s): ANEMIA Father Family Medical History: Cancer, CVA/TIA, Diabetes Mellitus Additional Family Medical History / Comment(s): CVA, kidney cancer. General Exam - General Exam Comments Initial Comments: 73 year old female, no distress. Limitations: no limitations General appearance: alert, in no apparent distress Head exam: Present: atraumatic, normocephalic, normal inspection Eye exam: Present: normal appearance, PERRL, EOMI. Absent: scleral icterus, conjunctival injection, periorbital swelling ENT exam: Present: normal exam, mucous membranes moist Neck exam: Present: normal inspection. Absent: tenderness, meningismus, lymphadenopathy Respiratory exam: Present: normal lung sounds bilaterally. Absent: respiratory distress, wheezes, rales, rhonchi, stridor Cardiovascular Exam: Present: regular rate, normal rhythm, normal heart sounds. Absent: systolic murmur, diastolic murmur, rubs, gallop, clicks GI/Abdominal exam: Present: soft, normal bowel sounds. Absent: distended, tenderness, guarding, rebound, rigid Extremities exam: Present: normal inspection, full ROM, normal capillary refill. Absent: tenderness, pedal edema, joint swelling, calf tenderness Back exam: Present: normal inspection, full ROM Neurological exam: Present: alert, oriented X3, CN II-XII intact Expanded Patient oriented to: Present: person, place, time Speech: Present: fluid speech Cranial nerves: EOM's Intact: Normal, Facial Sensation: Normal Cerebellar function: Finger to Nose: Normal Upper motor neuron: Michael Neglect: Abnormal Left ( ), Pronator Drift: Abnormal Left (positive L pronator drift.) Sensory exam: Upper Extremity Light Touch: Abnormal Left, Lower Extremity Light Touch: Abnormal Left (abnormal sensation over upper and lower extremity to light touch) Motor strength exam: RUE: 5, LUE: 3, RLE: 5, LLE: 3 Eye Response: (4) open spontaneously Motor Response: (6) obeys commands Verbal Response: (5) oriented [place] Total: 15 Psychiatric exam: Present: normal affect, normal mood Skin exam: Present: warm, dry, intact, normal color. Absent: rash Course Vital Signs 06/29/19 06/29/19 06/29/19 09:26 09:30 10:00 Temperature 97.9 F Pulse Rate 94 86 87 Respiratory 18 16 16 Rate Blood Pressure 169/93 146/76 142/89 O2 Sat by Pulse 100 99 100 Oximetry 06/29/19 10:30 Temperature Pulse Rate 83 Respiratory 16 Rate Blood Pressure 142/73 O2 Sat by Pulse 100 Oximetry EKG Findings - EKG Comments: EKG Findings:: EKG performed at 937 shows normal sinus rhythm with low-voltage QRS. Borderline EKG. Ventricular rate of 80 bpm. Was 158 ms. QS duration 76 ms. QT QTc is 368/445 ms. Medical Decision Making - Medical Decision Making 73-year-old female presents emergency department today with onset of left-sided weakness facial droop plenty of some dizziness and headache starting yesterday upon awakening. Symptoms for greater than 24 hours. At this time she does have evidence of left arm weakness left leg weakness slight facial droop and paresthesias. Her NIH of 5. Patient had stat CT brain and CT BUSTOS. Patient CTs are negative for any acute process at this time or Patient may benefit from MRI. Patient blood work was reviewed and it has evidence of elevated blood sugar. This will be started on a sliding scale. Patient is agreeable to admission at this time with consult to neurology. Discussed the case with Dr. Hylton. - Lab Data Result diagrams: 06/29/19 09:49 06/29/19 09:49 Lab Results 06/29/19 06/29/19 06/29/19 Range/Units 09:41 09:49 09:49 WBC 7.0 (3.8-10.6) k/uL RBC 4.55 (3.80-5.40) m/uL Hgb 13.3 (11.4-16.0) gm/dL Hct 40.8 (34.0-46.0) % MCV 89.7 (80.0-100.0) fL MCH 29.3 (25.0-35.0) pg MCHC 32.7 (31.0-37.0) g/dL RDW 13.4 (11.5-15.5) % Plt Count 190 (150-450) k/uL Neutrophils % 79 % Lymphocytes % 11 % Monocytes % 5 % Eosinophils % 3 % Basophils % 1 % Neutrophils # 5.6 (1.3-7.7) k/uL Lymphocytes # 0.8 L (1.0-4.8) k/uL Monocytes # 0.3 (0-1.0) k/uL Eosinophils # 0.2 (0-0.7) k/uL Basophils # 0.1 (0-0.2) k/uL PT 9.4 (9.0-12.0) sec INR 0.9 (<1.2) APTT 22.1 (22.0-30.0) sec Sodium (137-145) mmol/L Potassium (3.5-5.1) mmol/L Chloride (98-107) mmol/L Carbon Dioxide (22-30) mmol/L Anion Gap mmol/L BUN (7-17) mg/dL Creatinine (0.52-1.04) mg/dL Est GFR (CKD-EPI)AfAm (>60 ml/min/1.73 sqM) Est GFR (CKD-EPI)NonAf (>60 ml/min/1.73 sqM) Glucose (74-99) mg/dL POC Glucose (mg/dL) 332 H (75-99) mg/dL POC Glu [employer] ID [place] Calcium (8.4-10.2) mg/dL Total Bilirubin (0.2-1.3) mg/dL AST (14-36) U/L ALT (4-34) U/L Alkaline Phosphatase (38-126) U/L Troponin I (0.000-0.034) ng/mL Total Protein (6.3-8.2) g/dL Albumin (3.5-5.0) g/dL Urine Color Urine Appearance (Clear) Urine pH (5.0-8.0) Ur Specific [place] (1.001-1.035) Urine Protein (Negative) Urine Glucose (UA) (Negative) Urine Ketones (Negative) Urine Blood (Negative) Urine Nitrite (Negative) Urine Bilirubin (Negative) Urine Urobilinogen (<2.0) mg/dL Ur Leukocyte Esterase (Negative) Coronavirus (PCR) (Not Detectd) 06/29/19 06/29/19 06/29/19 Range/Units 09:49 09:49 10:42 WBC (3.8-10.6) k/uL RBC (3.80-5.40) m/uL Hgb (11.4-16.0) gm/dL Hct (34.0-46.0) % MCV (80.0-100.0) fL MCH (25.0-35.0) pg MCHC (31.0-37.0) g/dL RDW (11.5-15.5) % Plt Count (150-450) k/uL Neutrophils % % Lymphocytes % % Monocytes % % Eosinophils % % Basophils % % Neutrophils # (1.3-7.7) k/uL Lymphocytes # (1.0-4.8) k/uL Monocytes # (0-1.0) k/uL Eosinophils # (0-0.7) k/uL Basophils # (0-0.2) k/uL PT (9.0-12.0) sec INR (<1.2) APTT (22.0-30.0) sec Sodium 137 (137-145) mmol/L Potassium 4.2 (3.5-5.1) mmol/L Chloride 101 (98-107) mmol/L Carbon Dioxide 23 (22-30) mmol/L Anion Gap 13 mmol/L BUN 19 H (7-17) mg/dL Creatinine 0.59 (0.52-1.04) mg/dL Est GFR (CKD-EPI)AfAm >90 (>60 ml/min/1.73 sqM) Est GFR (CKD-EPI)NonAf >90 (>60 ml/min/1.73 sqM) Glucose 312 H (74-99) mg/dL POC Glucose (mg/dL) (75-99) mg/dL POC Glu [employer] ID Calcium 9.5 (8.4-10.2) mg/dL Total Bilirubin 0.4 (0.2-1.3) mg/dL AST 22 (14-36) U/L ALT 29 (4-34) U/L Alkaline Phosphatase 85 (38-126) U/L Troponin I <0.012 (0.000-0.034) ng/mL Total Protein 7.1 (6.3-8.2) g/dL Albumin 4.3 (3.5-5.0) g/dL Urine Color Urine Appearance (Clear) Urine pH (5.0-8.0) Ur Specific [place] (1.001-1.035) Urine Protein (Negative) Urine Glucose (UA) (Negative) Urine Ketones (Negative) Urine Blood (Negative) Urine Nitrite (Negative) Urine Bilirubin (Negative) Urine Urobilinogen (<2.0) mg/dL Ur Leukocyte Esterase (Negative) Coronavirus (PCR) Not Detected (Not Detectd) 06/29/19 Range/Units 10:55 WBC (3.8-10.6) k/uL RBC (3.80-5.40) m/uL Hgb (11.4-16.0) gm/dL Hct (34.0-46.0) % MCV (80.0-100.0) fL MCH (25.0-35.0) pg MCHC (31.0-37.0) g/dL RDW (11.5-15.5) % Plt Count (150-450) k/uL Neutrophils % % Lymphocytes % % Monocytes % % Eosinophils % % Basophils % % Neutrophils # (1.3-7.7) k/uL Lymphocytes # (1.0-4.8) k/uL Monocytes # (0-1.0) k/uL Eosinophils # (0-0.7) k/uL Basophils # (0-0.2) k/uL PT (9.0-12.0) sec INR (<1.2) APTT (22.0-30.0) sec Sodium (137-145) mmol/L Potassium (3.5-5.1) mmol/L Chloride (98-107) mmol/L Carbon Dioxide (22-30) mmol/L Anion Gap mmol/L BUN (7-17) mg/dL Creatinine (0.52-1.04) mg/dL Est GFR (CKD-EPI)AfAm (>60 ml/min/1.73 sqM) Est GFR (CKD-EPI)NonAf (>60 ml/min/1.73 sqM) Glucose (74-99) mg/dL POC Glucose (mg/dL) (75-99) mg/dL POC Glu [employer] Driver ID Calcium (8.4-10.2) mg/dL Total Bilirubin (0.2-1.3) mg/dL AST (14-36) U/L ALT (4-34) U/L Alkaline Phosphatase (38-126) U/L Troponin I (0.000-0.034) ng/mL Total Protein (6.3-8.2) g/dL Albumin (3.5-5.0) g/dL Urine Color Light Yellow Urine Appearance Clear (Clear) Urine pH 5.0 (5.0-8.0) Ur Specific [place] 1.036 H (1.001-1.035) Urine Protein Negative (Negative) Urine Glucose (UA) 4+ H (Negative) Urine Ketones Negative (Negative) Urine Blood Negative (Negative) Urine Nitrite Negative (Negative) Urine Bilirubin Negative (Negative) Urine Urobilinogen <2.0 (<2.0) mg/dL Ur Leukocyte Esterase Negative (Negative) Coronavirus (PCR) (Not Detectd) - Radiology Data Radiology results: report reviewed Age-related a traffic and chronic small vessel ischemic changes any acute intracranial process seen at this time on CT of the brain without contrast. CT angios shows no significant diameter reduction to account for patient's symptoms of the CT neck. CT angios negative for any acute process. Chest x-ray shows no evidence for acute pulmonary disease. Disposition Clinical Impression: Stroke, Left-sided weakness, Hyperglycemia Disposition: ADMITTED IP TO THIS HOSP Condition: Stable Is patient prescribed a controlled substance at d/c from ED?: No Referrals: Chris Caicedo DO [Primary Care Provider] - 1-2 days Time of Disposition: 11:29
--- NOTE | 2019-06-29 10:47 | XR ---
EXAMINATION TYPE: XR chest 2V DATE OF EXAM: 06/29/2019 COMPARISON: 07/10/2018 HISTORY: Shortness of breath TECHNIQUE: Frontal and lateral views of the chest are obtained. FINDINGS: Scattered senescent parenchymal changes noted. Hyperinflation compatible with COPD. No evidence for infiltrate. No evidence for atelectasis. Heart size is stable. Mediastinal structures are stable and grossly unremarkable. No evidence for hilar prominence. Degenerative changes dorsal spine. IMPRESSION: 1. No evidence for acute pulmonary disease.
--- NOTE | 2019-06-29 11:10 | CT ---
EXAMINATION TYPE: CT angio head neck DATE OF EXAM: 06/29/2019 COMPARISON: None HISTORY: Lt side weakness CT DLP: 402.8 mGycm CONTRAST: Performed with IV Contrast, patient injected with 65 mL of Isovue 370. Combination Contrast CTA cervical carotids and [place] CTA cervical carotids with 3-D recons truction Contrast CTA of the cervical carotids was performed 3-D reconstruction imaging obtained at a separate workstation. Right carotid system: Mild plaque is seen of the right common carotid artery. There is mild plaque a lso noted at the carotid bulb and proximal ICA. Ectatic course right ICA. No significant diameter red uction. ECA is patent. Right vertebral artery appears unremarkable. Left carotid system: Mild plaque is seen of the left common carotid artery. There is mild plaque als o noted at the carotid bulb and proximal ICA. No significant diameter reduction. ECA is patent. Lef t vertebral artery appears unremarkable. Postoperative changes of the cervical spine. IMPRESSION: 1. No significant diameter reduction to account for the patient's symptoms. CTA [place] with 3-D reconstruction Contrast CTA of the [place] was performed 3-D reconstruction imaging obtained at a separate workstation. Vertebrobasilar system as well as intracranial portions of the internal carotid arteries and their ma lonnie tributaries are patent. I do not see evidence for sizable aneurysm or vascular malformation. Pl ease note MRI provides greater sensitivity and specificity. Visualized brain appears grossly unremar kable. IMPRESSION: 1. No significant abnormality.
[2019-06-29 11:12] LABS: Appearance,Urine Clear (Clear); Bilirubin,Urine Negative (Negative); Blood,Urine Negative (Negative); Color,Urine Light Yellow; Glucose,Urine (UA) 4+ (Negative); Ketones,Urine Negative (Negative); Leukocyte Esterase,Urine Negative (Negative); Nitrite,Urine Negative (Negative); Protein,Urine Negative (Negative); Specific Gravity,Urine 1.036 (1.001-1.035); Urobilinogen,Urine <2.0 mg/dL (<2.0)
[2019-06-29] MEDS ORDERED: ASPIRIN 325 MG TAB PO STA (11:30)
[2019-06-29] MEDS ORDERED: ALBUTEROL NEBULIZED 2.5 MG/3 ML INHALATION PRN (11:32)
[2019-06-29] MEDS ORDERED: clonazePAM 0.5 MG TAB PO PRN (11:32)
[2019-06-29] MEDS ORDERED: BENZONATATE 100 MG CAP PO PRN (11:32)
[2019-06-29] MEDS: SODIUM CHLORIDE 0.9% 1,000 ML IV SCH ×2 (12:00→21:30)
--- NOTE | 2019-06-29 13:47 | P.CNNES ---
History of Present Illness Consult date: 06/29/19 Requesting physician: Yesica Donnelly Reason for Consult: Stroke symptoms over 24 hours, left-sided weakness History of Present Illness: Patient is a 73-year-old right-handed female admitted to the hospital this morning at 9:24 AM for strokelike symptoms and uncontrolled blood pressure. Patient states that in the last 2 weeks her blood pressure has been running up and down. It ranges between 145/75-100/60. The PCP told her to stop the cervical and the blood pressure started going up. In the last 2 days, she has b cristy noticing that when she was walking, she was tilting to the left. Yesterday she noticed that her left side of the face was droopy. She got concerned therefore came to the hospital this morning. Patient's blood pressure on arrival was 142/89, pulse rate 87, respirations 16 and saturation 100%. CT head showed age-related atrophic and chronic small vessel ischemic changes without acute intracranial process. Chest x-ray showed no acute process. CTA of head and neck showed no significant diameter reduction to count for the patient's symptoms. EKG shows normal sinus rhythm. Patient denies any visual symptoms, focal numbness tingling or weakness involving extremities. Patient has history of diabetes for the last 20 years also has diabetic neuropathy. She has hypertension for 10 years, hyperlipidemia. Denies any tobacco or alcohol. Patient states that she was on Plavix in the past, after she had a TIA 3 years ago. However she stopped taking Plavix a year ago. Patient is ALLERGIC to aspirin, as she gets shortness of breath. Patient does have asthma. Review of Systems As mentioned above in detail. She does have some cough which is chronic from h er asthma. Denies any shortness of breath or fever. Denies any abdominal pain nausea vomiting diarrhea. Denies slurred speech focal numbness tingling or weakness. All other review of systems unremarkable. 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, IDDM type II, neuropathy bilateral feet, RLS, chronic cervical pain, osteoporosis, narcolepsy, hiatal hernia, diverticular disease, IBS, stress urine incontinence, lichens sclerosis, falls, asthma History of Any Multi-Drug Resistant Organisms: None Reported Past Surgical History: Appendectomy, Breast Surgery, Cholecystectomy, Heart Catheterization, Hernia Repair, Hysterectomy, Orthopedic Surgery Additional Past Surgical History / Comment(s): 06/24/18 Cervical fusions C4-C5/C5-C6/C6-C7 at [facility],01/2019 Lower back surgery at [facility] R breast benign lumpectomy, cardiac cath showed mild disease, umbilical hernia repair, D&C, bilateral cataract removals, EGD, colonoscopy with benign polyp, cystocele, rectocele, vuvular bx, liver bx d/t elevated LFT. Past Anesthesia/Blood Transfusion Reactions: No Reported Reaction Smoking Status: Never smoker - Past Family History Mother Family Medical History: Hyperlipidemia, Hypertension Additional Family Medical History / Comment(s): ANEMIA Father Family Medical History: Cancer, CVA/TIA, Diabetes Mellitus Additional Family Medical History / Comment(s): CVA, kidney cancer. Medications and Allergies Home Medications Medication Instructions Recorded Confirmed Type Atorvastatin [Lipitor] 80 mg PO HS 03/21/14 06/29/19 History Baclofen 5 mg PO HS 03/21/14 06/29/19 History Pantoprazole Sodium [Protonix] 40 mg PO DAILY 03/21/14 06/29/19 History Pramipexole Di-HCl [Mirapex] 1 mg PO HS 03/21/14 06/29/19 History Pregabalin [Lyrica] 200 mg PO TID 03/21/14 06/29/19 History Lidocaine 5% Patch [Lidoderm 5% 1 patch TOPICAL DAILY 03/09/15 06/29/19 History Patch] Montelukast [Singulair] 10 mg PO HS 04/11/15 06/29/19 History Albuterol Nebulized [Ventolin 2.5 mg INHALATION RT-QID PRN 06/05/17 06/29/19 History Nebulized] Fluticasone/Salmeterol [Advair 1 puff INHALATION RT-BID 06/05/17 06/29/19 History 250-50 Diskus] Ergocalciferol (Vitamin D2) 50,000 unit PO TU 03/19/18 06/29/19 History [Vitamin D2] Fenofibrate Nanocrystallized 145 mg PO DAILY 03/19/18 06/29/19 History [Tricor] Isosorbide Mononitrate ER [Imdur] 30 mg PO DAILY 03/19/18 06/29/19 History Albuterol Sulfate [Proair Hfa] 2 puff INHALATION RT-QID PRN 07/10/18 06/29/19 History Lisinopril-Hctz 10-12.5 mg 1 tab PO DAILY 07/10/18 06/29/19 History [Zestoretic 10-12.5] Niacin 500 mg PO DAILY 07/10/18 06/29/19 History Diphenox-Atrop 2.5-0.025 mg 1 tab PO BID PRN 06/29/19 06/29/19 History [Lomotil] FLUoxetine HCL [PROzac] 20 mg PO DAILY 06/29/19 06/29/19 History INSULIN LISPRO (For Pump) [humaLOG 125 units SQ-PUMP CONTINUOUS 06/29/19 06/29/19 History (For Pump)] Insulin Detemir (Levemir) [Levemir] 20 unit SQ HS 06/29/19 06/29/19 History Mometasone/Formoterol [Dulera 200 2 puff PO BID 06/29/19 06/29/19 History Mcg/5 Mcg Inhaler] Allergies Allergy/AdvReac Type Severity Reaction Status Date / Time aspirin Allergy Swelling Verified 06/29/19 11:46 ibuprofen Allergy Swelling Verified 06/29/19 11:46 ipratropium bromide Allergy Swelling Verified 06/29/19 11:46 [From Atrovent] meperidine HCl [From Demerol] Allergy Rash/Hives Verified 06/29/19 11:46 nickel Allergy Unknown Verified 06/29/19 11:46 hydromorphone HCl AdvReac Nausea & Verified 06/29/19 11:46 [From Dilaudid] Vomiting metformin AdvReac Unknown Verified 06/29/19 11:46 morphine AdvReac Vomiting Verified 06/29/19 11:46 trazodone AdvReac Weakness Verified 06/29/19 11:46 zolpidem tartrate AdvReac Hallucinati Verified 06/29/19 11:46 [From Ambien] ons MSG Allergy Rash/Hives Uncoded 05/05/18 12:37 Physical Examination - Vital Signs Vital Signs: Vital Signs Temp Pulse Pulse Resp BP BP Pulse Ox 06/29/19 12:27 98 18 156/70 96 06/29/19 12:00 79 16 145/77 99 06/29/19 10:30 83 16 142/73 100 06/29/19 10:00 87 16 142/89 100 06/29/19 09:30 86 16 146/76 99 06/29/19 09:26 97.9 F 94 18 169/93 100 Intake and Output 06/28/19 06/29/19 06/29/19 22:59 06:59 14:59 Other: Weight 68.039 kg On examination patient is an elderly female, in no distress. Patient is alert and awake oriented to time place and person. Speech and language functions are normal. Attention and concentration fund of knowledge is adequate. On cranial examination pupils are round and reactive to light, visual cuevas are full, extraocular muscles are intact. Face is symmetric and tongue protrudes the midline. Palatal elevation and sensation normal. Hearing and shoulder shrug normal. On muscle strength testing patient has left pronator drift. 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 Reflexes are 1+ to 2 and plantars are downgoing bilaterally. Sensory touch and temperature is decreased in the left arm, whereas only the touch sensation is decreased in the left leg. Patient has past pointing and ataxia for [id number] and [id number] testing only on the left. Tone and bulk of muscles normal. gait deferred. No carotid bruit. S1 and S2 audible. Abdomen soft nontender, Results - Laboratory Findings CBC and BMP: 06/29/19 09:49 06/29/19 09:49 Abnormal Lab Findings: Abnormal Labs 06/29/19 06/29/19 06/29/19 09:41 09:49 09:49 Lymphocytes # 0.8 L BUN 19 H Glucose 312 H POC Glucose (mg/dL) 332 H Ur Specific [place] Urine Glucose (UA) 06/29/19 10:55 Lymphocytes # BUN Glucose POC Glucose (mg/dL) Ur Specific [place] 1.036 H Urine Glucose (UA) 4+ H Assessment and Plan Assessment: * Probable acute stroke manifesting with mild left hemisensory loss and ataxia. Rule out thalamic stroke. * Diabetes * Hypertension * Hyperlipidemia * Diabetic neuropathy * Previous history of TIA. Plan: * Patient probably has presented with an acute stroke, possible thalamic lacune. * Patient will be placed on Plavix 75 mg daily. Patient is ALLERGIC to aspirin. * We will check an MRI of the brain. 2-D echo with bubble study. * We will check fasting a.m. lipid panel, hemoglobin A1c. * Permissible hypertension for 24-48 hours. * PT OT.
[2019-06-29] MEDS ORDERED: DIPHENOX-ATROP 2.5-0.025 MG 1 EACH TAB PO PRN (14:54)
--- NOTE | 2019-06-29 14:54 | P.HPIM ---
History of Present Illness H&P Date: 06/29/19 Chief Complaint: Weakness of left arm and left leg Ms. Thurman is a 73-year-old female with a past medical history of coronary artery disease, diabetes mellitus, GERD, hypertension, hyperlipidemia, osteoarthritis coming into the emergency Department with a chief complaint of weakness of the left arm and left leg since yesterday morning. Patient states that one week back for blood pressure was running low, so she called her doctor's office, she was told to stop taking her blood pressure pill, lisinopril hydrochlorothiazide. So the patient has been off of her blood pressure medication. Yesterday she woke up feeling that her left side of the body has been weak and also she could feel that the left side of the face was droopy and this morning the symptoms were worse and so she came into the hospital. Patient is on an insulin pump for Diabetes mellitus and she states that her last hemoglobin A1c checked was in January and it was 7.4. Patient states that she is ALLERGIC to aspirin. She mentions that she was taking Plavix in the past but stopped taking it for the past 1 year. Patient denies having any history of smoking or alcohol use. Patient has diabetes for the past 20 years and its complication including diabetic neuropathy. She also mentions that she was taking more towards her left side for the past couple of days. Patient denies having any chest pain or palpitations. No cough or difficulty in breathing. She denies having any abdominal pain nausea vomiting or diarrhea. She denies having any dysuria or hematuria. She denies having any headaches or neck pain. Denies having any double vision. No ear problems. Denies having any sore throat. She denies having any exposure to COVID 19 virus. In the ER patient had a CT of the head which was showing is related to atrophic and chronic small vessel ischemic changes without acute intracranial process. She also had CT angiography of the head and neck showing no significant diameter reduction to account for patient's symptoms. Review of Systems REVIEW OF SYSTEMS: PSYCH: No anxiety or depression NEURO: As per HPI VASCULAR: no edema HEMATOLOGIC: No history of easy bleeding and bruising . No recent infections . RESPIRATORY: No cough, No SOB, No chest discomfort. IMMUNE: No infections INTEGUMENT: no rashes OPHTHALMOLOGIC: No blurry vision and no eye discharge : No dysuria or hematuria CARDIAC: No chest pain , shortness of breath , paroxysmal nocturnal dyspnea MUSCULOSKELETAL : No Aches or pains in the joints or muscles. GI: No abdominal pain, Nausea or vomiting. No constipation or diarrhea. 13 review of systems done and negative except for ones mentioned above. 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, IDDM type II, neuropathy bilateral feet, RLS, chronic cervical pain, osteoporosis, narcolepsy, hiatal hernia, diverticular disease, IBS, stress urine incontinence, lichens sclerosis, falls, asthma History of Any Multi-Drug Resistant Organisms: None Reported Past Surgical History: Appendectomy, Breast Surgery, Cholecystectomy, Heart Catheterization, Hernia Repair, Hysterectomy, Orthopedic Surgery Additional Past Surgical History / Comment(s): 06/24/18 Cervical fusions C4-C5/C5-C6/C6-C7 at [facility],01/2019 Lower back surgery at [facility] R breast benign lumpectomy, cardiac cath showed mild disease, umbilical hernia repair, D&C, bilateral cataract removals, EGD, colonoscopy with benign polyp, cystocele, rectocele, vuvular bx, liver bx d/t elevated LFT. Past Anesthesia/Blood Transfusion Reactions: No Reported Reaction Smoking Status: Never smoker - Past Family History Mother Family Medical History: Hyperlipidemia, Hypertension Additional Family Medical History / Comment(s): ANEMIA Father Family Medical History: Cancer, CVA/TIA, Diabetes Mellitus Additional Family Medical History / Comment(s): CVA, kidney cancer. Medications and Allergies Home Medications Medication Instructions Recorded Confirmed Type Atorvastatin [Lipitor] 80 mg PO HS 03/21/14 06/29/19 History Baclofen 5 mg PO HS 03/21/14 06/29/19 History Pantoprazole Sodium [Protonix] 40 mg PO DAILY 03/21/14 06/29/19 History Pramipexole Di-HCl [Mirapex] 1 mg PO HS 03/21/14 06/29/19 History Pregabalin [Lyrica] 200 mg PO TID 03/21/14 06/29/19 History Lidocaine 5% Patch [Lidoderm 5% 1 patch TOPICAL DAILY 03/09/15 06/29/19 History Patch] Montelukast [Singulair] 10 mg PO HS 04/11/15 06/29/19 History Albuterol Nebulized [Ventolin 2.5 mg INHALATION RT-QID PRN 06/05/17 06/29/19 History Nebulized] Fluticasone/Salmeterol [Advair 1 puff INHALATION RT-BID 06/05/17 06/29/19 History 250-50 Diskus] Ergocalciferol (Vitamin D2) 50,000 unit PO TU 03/19/18 06/29/19 History [Vitamin D2] Fenofibrate Nanocrystallized 145 mg PO DAILY 03/19/18 06/29/19 History [Tricor] Isosorbide Mononitrate ER [Imdur] 30 mg PO DAILY 03/19/18 06/29/19 History Albuterol Sulfate [Proair Hfa] 2 puff INHALATION RT-QID PRN 07/10/18 06/29/19 History Lisinopril-Hctz 10-12.5 mg 1 tab PO DAILY 07/10/18 06/29/19 History [Zestoretic 10-12.5] Niacin 500 mg PO DAILY 07/10/18 06/29/19 History Diphenox-Atrop 2.5-0.025 mg 1 tab PO BID PRN 06/29/19 06/29/19 History [Lomotil] FLUoxetine HCL [PROzac] 20 mg PO DAILY 06/29/19 06/29/19 History INSULIN LISPRO (For Pump) [humaLOG 125 units SQ-PUMP CONTINUOUS 06/29/19 06/29/19 History (For Pump)] Insulin Detemir (Levemir) [Levemir] 20 unit SQ HS 06/29/19 06/29/19 History Mometasone/Formoterol [Dulera 200 2 puff PO BID 06/29/19 06/29/19 History Mcg/5 Mcg Inhaler] Allergies Allergy/AdvReac Type Severity Reaction Status Date / Time aspirin Allergy Swelling Verified 06/29/19 11:46 ibuprofen Allergy Swelling Verified 06/29/19 11:46 ipratropium bromide Allergy Swelling Verified 06/29/19 11:46 [From Atrovent] meperidine HCl [From Demerol] Allergy Rash/Hives Verified 06/29/19 11:46 nickel Allergy Unknown Verified 06/29/19 11:46 hydromorphone HCl AdvReac Nausea & Verified 06/29/19 11:46 [From Dilaudid] Vomiting metformin AdvReac Unknown Verified 06/29/19 11:46 morphine AdvReac Vomiting Verified 06/29/19 11:46 trazodone AdvReac Weakness Verified 06/29/19 11:46 zolpidem tartrate AdvReac Hallucinati Verified 06/29/19 11:46 [From Ambien] ons MSG Allergy Rash/Hives Uncoded 05/05/18 12:37 Physical Exam Vitals: Vital Signs Temp Pulse Pulse Resp BP BP Pulse Ox 06/29/19 12:27 98 18 156/70 96 06/29/19 12:00 79 16 145/77 99 06/29/19 10:30 83 16 142/73 100 06/29/19 10:00 87 16 142/89 100 06/29/19 09:30 86 16 146/76 99 06/29/19 09:26 97.9 F 94 18 169/93 100 Intake and Output 06/28/19 06/29/19 06/29/19 22:59 06:59 14:59 Intake Total 2200 Balance 2200 Intake: Intake, IV Titration 2200 Amount Sodium Chloride 0.9% 1, 1200 000 ml @ 100 mls/hr IV . Q10H LEO Rx#:[id number] Sodium Chloride 0.9% 1, 1000 000 ml @ 999 mls/hr IV . Q1H1M STA Rx#:[id number] Other: Weight 68.039 kg PHYSICAL EXAMINATION; GEN. APPEARANCE: alert, in no apparent distress HEAD EXAM: atraumatic, normocephalic, normal inspection EYE EXAM: PERRLA. No icterus. No pallor. ENT EXAM: normal exam, mucous membranes moist NECK EXAM: normal inspection. No thyromegaly. No lymphadenopathy. RESPIRATORY EXAM: normal lung sounds bilaterally. No wheeze or crackles. CARDIOVASCULAR EXAM: regular rate, normal rhythm, normal heart sounds. GI/ABDOMINAL EXAM: soft, normal bowel sounds. Nondistended, nontender. No guarding or rigidity. EXTREMITIES EXAM: No calf tenderness. No pedal edema. NEUROLOGICAL EXAM: alert, oriented X3, no facial droop. Tongue is midline. Strength is 3 out of 5 in the left upper and lower extremities. 5 out of 5 in the right upper and lower extremity. PSYCHIATRIC EXAM: normal affect, normal mood SKIN EXAM: warm, dry, intact, normal color. Results CBC & Chem 7: 06/29/19 09:49 06/29/19 09:49 Labs: Abnormal Lab Results - Last 24 Hours (Table) 06/29/19 06/29/19 06/29/19 Range/Units 09:41 09:49 09:49 Lymphocytes # 0.8 L (1.0-4.8) k/uL BUN 19 H (7-17) mg/dL Glucose 312 H (74-99) mg/dL POC Glucose (mg/dL) 332 H (75-99) mg/dL Ur Specific [place] (1.001-1.035) Urine Glucose (UA) (Negative) 06/29/19 Range/Units 10:55 Lymphocytes # (1.0-4.8) k/uL BUN (7-17) mg/dL Glucose (74-99) mg/dL POC Glucose (mg/dL) (75-99) mg/dL Ur Specific [place] 1.036 H (1.001-1.035) Urine Glucose (UA) 4+ H (Negative) Thrombosis Risk Factor Assmnt - Choose All That Apply Any of the Below Risk Factors Present?: Yes Each Factor Represents 1 point: Obesity (BMI >25) Other Risk Factors: Yes Each Risk Factor Represents 2 Points: Age 61-74 years Other congenital or acquired thrombophilia - If yes, enter type in comment: No Thrombosis Risk Factor Assessment Total Risk Factor Score: 3 Thrombosis Risk Factor Assessment Level: Moderate Risk Assessment and Plan Assessment: ASSESSMENT Left-sided weakness due to Cerebrovascular accident Type 2 diabetes mellitus with hyperglycemia Hypertension Hyperlipidemia History of coronary artery disease Diabetic neuropathy Previous history of TIA Multiple joint osteoarthritis Osteoporosis Narcolepsy Diverticular disease Stress urinary incontinence Lichen sclerosis Cervical fusion of C4-C5/C5-C6/C6-C7 Right breast benign lumpectomy Umbilical hernia repair PLAN: Patient coming in with left-sided weakness for more than 24 hours, CT of the brain was negative for any acute changes. Will need an MRI. Stroke workup with echo, carotid artery Doppler will be initiated. Patient has been on insulin pump for her diabetes, she stopped it as she ran out of her refills, this morning. We'll start her on 15 units of Lantus and 5 units of twice a day before meals NovoLog. We will adjust the insulin depending upon her blood sugar levels. We will allow permissible hypertension for the next 1-2 days. She has been started on Plavix per neurology. Further recommendations to follow depending on the progress of the patient. The treatment plan was discussed in detail with the patient at bedside.
[2019-06-29] MEDS: oxyCODONE-APAP 5-325MG 1 EACH TAB PO PRN (15:02)
[2019-06-29] MEDS: CLOPIDOGREL 75 MG TAB PO SCH (15:02)
[2019-06-29] MEDS: ALBUTEROL NEBULIZED 2.5 MG/3 ML INHALATION SCH ×3 (15:51→20:09)
--- NOTE | 2019-06-29 16:03 | MR ---
MR brain without contrast HISTORY: Left-sided weakness Multiplanar multisequence imaging through the brain Correlation to CT brain from 01/08/2020, brain MRI dated 03/13/2016 There is no restricted diffusion. Cortical atrophy is noted. Periventricular and subcortical white ma tter shows some minimal confluent and scattered foci of hyperintensity and inversion recovery T2-weig hted sequences which are essentially stable. There is no hemorrhage or hydrocephalus. Corpus callosum , pituitary, cerebellopontine angles, cervical medullary junction are stable. There are normal vascul ar flow voids. IMPRESSION: No acute abnormality. Age-related changes of atrophy and probable chronic small vessel is chemia.
[2019-06-29] MEDS: PREGABALIN 100 MG CAP PO SCH ×2 (16:18→21:29)
[2019-06-29 16:36] LABS: Glucose,Whole Blood 230 mg/dL (75-99)
--- NOTE | 2019-06-29 17:00 | US ---
EXAMINATION TYPE: US carotid duplex BILAT DATE OF EXAM: 06/29/2019 COMPARISON: CTA earlier today, US carotid Jun 28 2016 CLINICAL HISTORY: Stroke work up. Stroke, exam done portable. EXAM MEASUREMENTS: RIGHT: Peak Systolic Velocity (PSV) cm/sec ----- Right CCA: 72.3 ----- Right ICA: 82.0 ----- Right ECA: 76.3 ICA/CCA ratio: 1.1 RIGHT: End Diastole cm/sec ----- Right CCA: 15.3 ----- Right ICA: 26.4 ----- Right ECA: 10.2 LEFT: Peak Systolic Velocity (PSV) cm/sec ----- Left CCA: 78.9 ----- Left ICA: 99.6 ----- Left ECA: 107.0 ICA/CCA ratio: 1.3 LEFT: End Diastole cm/sec ----- Left CCA: 17.8 ----- Left ICA: 25.2 ----- Left ECA: 14.2 VERTEBRALS (direction of flow): Right Vertebral: Antegrade Left Vertebral: Antegrade Rhythm: Normal Adam scale images show no significant plaque at carotid bulb level bilaterally. Findings correlate wi CTA neck study performed earlier today. IMPRESSION: Unnecessary exam. No hemodynamically significant stenosis in either internal carotid a rtery. Criteria for Assigning % of Stenosis / Diameter reduction (Estimation based on the indirect measurements of the internal carotid artery velocities (ICA PSV). 1. Normal (no stenosis)=ICA PSV < 125 cm/s: ratio < 2.0: ICA EDV<40 cm/s. 2. Less than 50% stenosis=ICA PSV < 125 cm/s: ratio < 2.0: ICA EDV<40 cm/s. 3. 50 to 69% stenosis=ICA PSV of 125 to 230 cm/s: ration 2.0 ? 4.0: ICA EDV 40-100 cm/s. 4. Greater than 70% stenosis to near occlusion= ICA PSV > 230 cm/s: ratio > 4.0: ICA EDV > 100 cm/s. 5. Near occlusion= ICA PSV velocities may be low or undetectable: variable ratio and ICA EDV. 6. Total occlusion=unable to detect flow.
[2019-06-29] MEDS: INSULIN ASPART (NovoLOG) 100 UNIT/ML VIAL SQ SCH ×2 (17:29→21:29)
[2019-06-29] MEDS: SYMBICORT 80-4.5 MCG INHALER INHALATION SCH (20:10)
[2019-06-29 20:27] LABS: Glucose,Whole Blood 228 mg/dL (75-99)
[2019-06-29] MEDS ORDERED: NON FORMULARY DRUG (Mometasone/Formoterol [Dulera 200 Mcg/5 Mcg Inhaler] 2 PUFF) PO SCH (21:00)
[2019-06-29] MEDS ORDERED: ESCITALOPRAM 5 MG TAB PO SCH (21:00)
[2019-06-29] MEDS: FAMOTIDINE 20 MG/2 ML VIAL IV SCH (21:29)
[2019-06-29] MEDS: MONTELUKAST 10 MG TAB PO SCH (21:29)
[2019-06-29] MEDS: INSULIN DETEMIR (LEVEMIR) 100 UNIT/ML SYR SQ SCH (21:29)
[2019-06-29] MEDS: ATORVASTATIN 80 MG TAB PO SCH (21:29)
[2019-06-29] MEDS: BACLOFEN 10 MG TAB PO SCH (21:29)
[2019-06-29] MEDS: SENNOSIDES-DOCUSATE SODIUM 1 EACH TAB PO SCH (21:29)
[2019-06-29 22:56] LABS: Hemoglobin A1C 7.4 % (4.0-6.0)
[2019-06-30 06:03] LABS: Glucose,Whole Blood 238 mg/dL (75-99)
[2019-06-30] MEDS: PANTOPRAZOLE 40 MG TABLET PO SCH (06:07)
[2019-06-30] MEDS: INSULIN ASPART (NovoLOG) 100 UNIT/ML VIAL SQ SCH ×4 (06:07→21:13)
[2019-06-30 06:56] LABS: Cholesterol 233 mg/dL (<200); HDL Cholesterol 36 mg/dL (40-60); LDL Cholesterol,Calculated 135 mg/dL (0-99); Triglycerides 308 mg/dL (<150)
--- NOTE | 2019-06-30 07:48 | ECHOF ---
Referral Reason:CVA MEASUREMENTS -------- HEIGHT: 129.5 cm WEIGHT: 68.0 kg BP: RVIDd: 1.6 cm (< 3.3) IVSd: 0.9 cm (0.6 - 1.1) LVIDd: 3.8 cm (3.9 - 5.3) LVPWd: 1.2 cm (0.6 - 1.1) IVSs: 1.4 cm LVIDs: 2.0 cm LVPWs: 2.1 cm LAESV Index (A-L): 12.24 ml/m Ao Diam: 2.4 cm (2.0 - 3.7) AV Cusp: 1.7 cm (1.5 - 2.6) LA Diam: 3.0 cm (2.7 - 3.8) MV EXCURSION: 9.024 mm (> 18.000) MV EF SLOPE: 41 mm/s (70 - 150) EPSS: 0.5 cm MV E Leonardo: 0.83 m/s MV DecT: 189 ms MV A Leonardo: 1.10 m/s MV E/A Ratio: 0.76 RAP: 5.00 mmHg RVSP: 15.36 mmHg FINDINGS -------- Sinus rhythm. This was a technically adequate study. The left ventricular size is normal. There is borderline concentric left ventricular hypertrophy. Overall left ventricular systolic function is normal with, an EF between 55 - 60 %. Normal LAP Gra de 1 Diastolic Dysfunction. The right ventricle is normal in size. The left atrial size is normal. Normal LA size by volume 22+/-6 ml/m2. The right atrial size is normal. Interatrial and interventricular septum intact. The aortic valve is trileaflet and appears structurally normal. The mitral valve is normal. There is trace mitral regurgitation. The tricuspid valve appears structurally normal. Trace tricuspid regurgitation present. Right hillary tricular systolic pressure is normal at < 35 mmHg. There is no pulmonic regurgitation present. The aortic root size is normal. IVC Not well visulized. There is no pericardial effusion. CONCLUSIONS -------- 1. Sinus rhythm. 2. This was a technically adequate study. 3. The left ventricular size is normal. 4. There is borderline concentric left ventricular hypertrophy. 5. Overall left ventricular systolic function is normal with, an EF between 55 - 60 %. 6. Normal LAP Grade 1 Diastolic Dysfunction. 7. The right ventricle is normal in size. 8. The left atrial size is normal. 9. Normal LA size by volume 22+/-6 ml/m2. 10. The right atrial size is normal. 11. The aortic valve is trileaflet and appears structurally normal. 12. The mitral valve is normal. 13. There is trace mitral regurgitation. 14. The tricuspid valve appears structurally normal. 15. Trace tricuspid regurgitation present. 16. Right ventricular systolic pressure is normal at < 35 mmHg. 17. There is no pulmonic regurgitation present. 18. The aortic root size is normal. 19. IVC Not well visulized. 20. There is no pericardial effusion. PRINTING MACHINE MECHANIC: Malena Massey RDCS
[2019-06-30] MEDS: SYMBICORT 80-4.5 MCG INHALER INHALATION SCH ×2 (08:40→20:51)
[2019-06-30] MEDS: ALBUTEROL NEBULIZED 2.5 MG/3 ML INHALATION SCH ×4 (08:40→20:51)
[2019-06-30] MEDS: LISINOPRIL-HCTZ 10-12.5 MG 1 EACH TAB PO SCH ×2 (08:58→09:00)
[2019-06-30] MEDS: MODAFINIL 100 MG TAB PO SCH (08:58)
[2019-06-30] MEDS: SENNOSIDES-DOCUSATE SODIUM 1 EACH TAB PO SCH ×2 (08:58→21:12)
[2019-06-30] MEDS: FLUoxetine HCL 20 MG CAP PO SCH (08:58)
[2019-06-30] MEDS: ISOSORBIDE MONONITRATE ER 30 MG TAB.ER.24H PO SCH (08:58)
[2019-06-30] MEDS: FAMOTIDINE 20 MG/2 ML VIAL IV SCH ×2 (08:58→21:12)
[2019-06-30] MEDS: FENOFIBRATE 160 MG TAB PO SCH (08:58)
[2019-06-30] MEDS: CLOPIDOGREL 75 MG TAB PO SCH (08:58)
[2019-06-30] MEDS: PREGABALIN 100 MG CAP PO SCH ×4 (08:58→21:12)
[2019-06-30] MEDS: LIDOCAINE 5% PATCH TOPICAL SCH (08:59)
[2019-06-30] MEDS ORDERED: ASPIRIN 325 MG TAB PO SCH (09:00)
[2019-06-30] MEDS: BACLOFEN 10 MG TAB PO SCH ×2 (09:00→21:12)
[2019-06-30] MEDS ORDERED: DULoxetine HCL 30 MG CAPSULE.DR PO SCH (09:00)
[2019-06-30] MEDS: SODIUM CHLORIDE 0.9% 1,000 ML IV SCH ×2 (09:01→12:46)
[2019-06-30 11:47] LABS: Glucose,Whole Blood 303 mg/dL (75-99)
[2019-06-30] MEDS: oxyCODONE-APAP 5-325MG 1 EACH TAB PO PRN (12:49)
--- NOTE | 2019-06-30 13:16 | P.CONS ---
History of Present Illness - Chief Complaint Gait disturbance, left hemiparesthesias - History of Present Illness I had the opportunity to see patient for inpatient rehab consultation with regard to gait disturbance, left hemiparesthesias. Patient admitted to [facility] June 28 with what she described as hives feeling left face. There is left facial weakness and then later left arm and leg weakness. She reports falling to the left at least 2-3 times. Seen by neurology, Dr. Acosta. Note initial head CT demonstrated age-related and atrophic change only. Otherwise normal chest x- ray, angiogram CT, head CT and carotid Doppler. OT reports minimal assistance for upper dressing and moderate assistance for lower dressing, bathing, toileting and transfers. Speech therapy reports disfluencies and swallow within normal limits. PT prescribed. Previous functional history as elicited patient: 73-year-old right-handed white female who is lives in one floor home with and son. and patient are retired and his son is unemployed. Patient at least shares cooking, laundry, driving. Independent with sitdown bath and gait with standard cane. Standard cane [place] lost but she doesn't [address] Caicedo. Denies tobacco or alcohol. Family history father with cancer and mother with dementia, still at [facility]. Review of Systems Review of systems: ENT: Denies sneezes or discharge. Eyes: Denies discharge or photophobia. Cardiac: Denies chest pain or palpitation. Pulmonary: Denies cough or shortness of breath. Breast: Denies discharge or lumps. Gastrointestinal: Denies nausea, emesis, constipation, diarrhea. Genitourinary: Denies discharge or frequency. Musculoskeletal: Denies muscle or bone aches. Neurologic: Left-sided weakness and numbness including face, arm, leg. Endocrine: Denies shakes or sweats. Oncology: Denies cancers. Dermatologic: Denies rash, itching, pruritus. ALLERGY/immunology: Denies sneezes, rashes. 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, IDDM type II, neuropathy bilateral feet, RLS, chronic cervical pain, osteoporosis, narcolepsy, hiatal hernia, diverticular disease, IBS, stress urine incontinence, lichens sclerosis, falls, asthma History of Any Multi-Drug Resistant Organisms: None Reported Past Surgical History: Appendectomy, Breast Surgery, Cholecystectomy, Heart Catheterization, Hernia Repair, Hysterectomy, Orthopedic Surgery Additional Past Surgical History / Comment(s): 06/24/18 Cervical fusions C4-C5/C5-C6/C6-C7 at [facility],01/2019 Lower back surgery at [facility] R breast benign lumpectomy, cardiac cath showed mild disease, umbilical hernia repair, D&C, bilateral cataract removals, EGD, colonoscopy with benign polyp, cystocele, rectocele, vuvular bx, liver bx d/t elevated LFT. Past Anesthesia/Blood Transfusion Reactions: No Reported Reaction Smoking Status: Never smoker - Past Family History Mother Family Medical History: Hyperlipidemia, Hypertension Additional Family Medical History / Comment(s): ANEMIA Father Family Medical History: Cancer, CVA/TIA, Diabetes Mellitus Additional Family Medical History / Comment(s): CVA, kidney cancer. Medications and Allergies Home Medications Medication Instructions Recorded Confirmed Type Atorvastatin [Lipitor] 80 mg PO HS 03/21/14 06/29/19 History Baclofen 5 mg PO HS 03/21/14 06/29/19 History Pantoprazole Sodium [Protonix] 40 mg PO DAILY 03/21/14 06/29/19 History Pramipexole Di-HCl [Mirapex] 1 mg PO HS 03/21/14 06/29/19 History Pregabalin [Lyrica] 200 mg PO TID 03/21/14 06/29/19 History Lidocaine 5% Patch [Lidoderm 5% 1 patch TOPICAL DAILY 03/09/15 06/29/19 History Patch] Montelukast [Singulair] 10 mg PO HS 04/11/15 06/29/19 History Albuterol Nebulized [Ventolin 2.5 mg INHALATION RT-QID PRN 06/05/17 06/29/19 History Nebulized] Fluticasone/Salmeterol [Advair 1 puff INHALATION RT-BID 06/05/17 06/29/19 History 250-50 Diskus] Ergocalciferol (Vitamin D2) 50,000 unit PO TU 03/19/18 06/29/19 History [Vitamin D2] Fenofibrate Nanocrystallized 145 mg PO DAILY 03/19/18 06/29/19 History [Tricor] Isosorbide Mononitrate ER [Imdur] 30 mg PO DAILY 03/19/18 06/29/19 History Albuterol Sulfate [Proair Hfa] 2 puff INHALATION RT-QID PRN 07/10/18 06/29/19 History Lisinopril-Hctz 10-12.5 mg 1 tab PO DAILY 07/10/18 06/29/19 History [Zestoretic 10-12.5] Niacin 500 mg PO DAILY 07/10/18 06/29/19 History Diphenox-Atrop 2.5-0.025 mg 1 tab PO BID PRN 06/29/19 06/29/19 History [Lomotil] FLUoxetine HCL [PROzac] 20 mg PO DAILY 06/29/19 06/29/19 History INSULIN LISPRO (For Pump) [humaLOG 125 units SQ-PUMP CONTINUOUS 06/29/1906/18 History (For Pump)] Insulin Detemir (Levemir) [Levemir] 20 unit SQ HS 06/29/19 06/29/19 History Mometasone/Formoterol [Dulera 200 2 puff PO BID 06/29/19 06/29/19 History Mcg/5 Mcg Inhaler] Allergies Allergy/AdvReac Type Severity Reaction Status Date / Time aspirin Allergy Swelling Verified 06/29/19 11:46 ibuprofen Allergy Swelling Verified 06/29/19 11:46 ipratropium bromide Allergy Swelling Verified 06/29/19 11:46 [From Atrovent] meperidine HCl [From Demerol] Allergy Rash/Hives Verified 06/29/19 11:46 nickel Allergy Unknown Verified 06/29/19 11:46 hydromorphone HCl AdvReac Nausea & Verified 06/29/19 11:46 [From Dilaudid] Vomiting metformin AdvReac Unknown Verified 06/29/19 11:46 morphine AdvReac Vomiting Verified 06/29/19 11:46 trazodone AdvReac Weakness Verified 06/29/19 11:46 zolpidem tartrate AdvReac Hallucinati Verified 06/29/19 11:46 [From Ambien] ons MSG Allergy Rash/Hives Uncoded 05/05/18 12:37 Physical Exam Vitals: Vital Signs Temp Pulse Pulse Resp BP Pulse Ox 06/30/19 12:21 98.1 F 78 18 133/69 93 L 06/30/19 09:11 97.8 F 71 18 127/63 97 06/30/19 08:52 64 06/30/19 08:40 64 06/30/19 03:00 97.9 F 80 16 176/79 97 06/29/19 22:58 91 16 133/69 97 06/29/19 20:23 68 06/29/19 20:10 64 06/29/19 20:00 98.2 F 92 16 130/63 99 06/29/19 16:13 66 06/29/19 16:05 66 06/29/19 15:06 98.0 F 57 L 18 137/90 96 Intake and Output 06/29/19 06/30/19 06/30/19 22:59 06:59 14:59 Intake Total 236 1800 Output Total 500 Balance 236 1300 Intake: Intake, IV Titration 1200 Amount Sodium Chloride 0.9% 1, 1200 000 ml @ 100 mls/hr IV . Q10H LE[facility] Rx#:[id number] Oral 236 600 Output: Urine 500 Other: Voiding Method Toilet Toilet # Voids 2 3 1 # Bowel Movements 1 Weight 70.7 kg Skin: Good color, texture, turgor. Perhaps mildly atrophic. General: Overweight build and comfortable appearance. Head: Normocephalic, atraumatic. Eyes: Symmetric. Pupils equal round. Ears: Symmetric. Hearing within normal limits. Mouth: Clear. Neck: Supple. Carotid without bruit. Cardiac: Regular rate and rhythm. Lungs: Clear anteriorly and posteriorly. Abdomen: Soft active nontender. Extremities: Normal tone. Neurological: Mental status: Alert, cooperative, pleasant. Cranial nerves: Mild left facial weakness and left facial sensory loss. Motor: Active movement all 4 limbs but with definite weakness left arm and leg, especially distally. Sensation: Intact right side and depressed left side. DTRs: Symmetric and equal throughout. Mobility: Sits with assistance. Results CBC & Chem 7: 06/29/19 09:49 06/29/19 09:49 Labs: Abnormal Lab Results - Last 24 Hours (Table) 06/29/19 06/29/19 06/29/19 Range/Units 09:49 16:35 20:26 POC Glucose (mg/dL) 230 H 228 H (75-99) mg/dL Hemoglobin A1c 7.4 H (4.0-6.0) % Triglycerides (<150) mg/dL Cholesterol (<200) mg/dL LDL Cholesterol, Calc (0-99) mg/dL HDL Cholesterol (40-60) mg/dL 06/30/19 06/30/19 06/30/19 Range/Units 05:45 06:01 11:17 POC Glucose (mg/dL) 238 H 303 H (75-99) mg/dL Hemoglobin A1c (4.0-6.0) % Triglycerides 308 H (<150) mg/dL Cholesterol 233 H (<200) mg/dL LDL Cholesterol, Calc 135 H (0-99) mg/dL HDL Cholesterol 36 L (40-60) mg/dL Assessment and Plan (1) CVA (cerebral vascular accident) Current Visit: Yes Status: Acute Code(s): I63.9 - CEREBRAL INFARCTION, UNSPECIFIED SNOMED Code(s): 810571084 (2) Left-sided weakness Current Visit: Yes Status: Acute Code(s): R53.1 - WEAKNESS SNOMED Code(s): 611460407 Plan: Impression: 1. Gait disturbance with left hemiparesthesias with history of previous stroke. 2. Hypertension. 3. Diabetes. 4. Coronary disease. 5. Osteoarthritis. 6. Asthma. 7. Dyslipidemia. Comments and plan: At this time OT and [employer] ongoing. Safety concerns noted. Have discussed possible inpatient rehab with patient and she seems agreeable if necessary, which appears to be the case. Currently awaiting PT note. Have discussed with her diagnosis for inpatient rehab would of course be stroke with left hemiparesthesias, despite the negative on CT and MRI.
--- NOTE | 2019-06-30 13:55 | P.PN ---
Subjective Progress Note Date: 06/30/19 Patient denies any new neurological symptoms. Denies headache. Continues to have left-sided weakness as yesterday. Objective - Vital Signs Vital signs: Vital Signs Temp 98.1 F 06/30/19 12:21 Pulse 64 06/30/19 13:22 Resp 18 06/30/19 12:21 BP 133/69 06/30/19 12:21 Pulse Ox 93 L 06/30/19 12:21 Intake & Output 06/29/19 06/30/19 06/30/19 18:59 06:59 18:59 Intake Total 2436 1800 Output Total 500 Balance 2436 1300 Weight 68.039 kg 70.7 kg Intake: Intake, IV Titration 2200 1200 Amount Sodium Chloride 0.9% 1, 1200 1200 000 ml @ 100 mls/hr IV . Q10H [facility] Rx#:[id number] Sodium Chloride 0.9% 1, 1000 000 ml @ 999 mls/hr IV . Q1H1M STA Rx#:[id number] Oral 236 600 Output: Urine 500 Other: Voiding Method Toilet Toilet Toilet # Voids 2 3 1 # Bowel Movements 1 - Exam Patient's mental status, speech and language functions are normal. Cranial nerves are normal. Patient has mild left pronator drift. Strength is mostly normal except left gold plater is 4+, hip flexion 5-. Sensations are equal bilaterally with no neglect. No ataxia for [id number] testing. - Labs CBC & Chem 7: 06/29/19 09:49 06/29/19 09:49 Labs: Abnormal Lab Results - Last 24 Hours (Table) 06/29/19 06/29/19 06/29/19 Range/Units 09:49 16:35 20:26 POC Glucose (mg/dL) 230 H 228 H (75-99) mg/dL Hemoglobin A1c 7.4 H (4.0-6.0) % Triglycerides (<150) mg/dL Cholesterol (<200) mg/dL LDL Cholesterol, Calc (0-99) mg/dL HDL Cholesterol (40-60) mg/dL 06/30/19 06/30/19 06/30/19 Range/Units 05:45 06:01 11:17 POC Glucose (mg/dL) 238 H 303 H (75-99) mg/dL Hemoglobin A1c (4.0-6.0) % Triglycerides 308 H (<150) mg/dL Cholesterol 233 H (<200) mg/dL LDL Cholesterol, Calc 135 H (0-99) mg/dL HDL Cholesterol 36 L (40-60) mg/dL Assessment and Plan Assessment: * Possible acute stroke manifesting with mild left hemisensory loss and ataxia. MRI brain negative for acute stroke. * Diabetes * Hypertension * Hyperlipidemia * Diabetic neuropathy * Previous history of TIA. Plan: * Although MRI of the brain is negative, but symptoms are still suggestive of possible cerebral ischemia, perhaps in the right thalamus. * Continue Plavix 75 mg daily. Patient is ALLERGIC to aspiirin. * MRI of the brain revealed no acute abnormality. Age-related changes of atrophy and probable chronic small vessel ischemia. * 2-D echo showed borderline concentric LVH, EF 55-60%. Normal left atrial size. * Fasting a.m. lipid panel showed cholesterol 233, LDL 135, HDL 36 and triglycerides 308. Target LDL <70. Continue high-dose statins. Liver panel normal. * Hemoglobin A1c 7.4. Target hemoglobin A1c <7.0. * Blood pressure is well controlled. * PT OT. Neurologically clear to be transferred to the inpatient rehab, if indicated.
--- NOTE | 2019-06-30 14:30 | P.PN ---
Subjective Progress Note Date: 06/30/19 Principal diagnosis: Ms. Thurman is a 73-year-old female with a past medical history of coronary artery disease, diabetes mellitus, GERD, hypertension, hyperlipidemia, osteoarthritis coming into the emergency Department with a chief complaint of weakness of the left arm and left leg since yesterday morning. Patient states that one week back for blood pressure was running low, so she called her doctor's office, she was told to stop taking her blood pressure pill, lisinopril hy drochlorothiazide. So the patient has been off of her blood pressure medication. Yesterday she woke up feeling that her left side of the body has been weak and also she could feel that the left side of the face was droopy and this morning the symptoms were worse and so she came into the hospital. Patient is on an insulin pump for Diabetes mellitus and she states that her last hemoglobin A1c checked was in January and it was 7.4. Patient states that she is ALLERGIC to aspirin. She mentions that she was taking Plavix in the past but stopped taking it for the past 1 year. Patient denies having any history of smoking or alcohol use. Patient has diabetes for the past 20 years and its comp lication including diabetic neuropathy. She also mentions that she was taking more towards her left side for the past couple of days. Patient denies having any chest pain or palpitations. No cough or difficulty in breathing. She denies having any abdominal pain nausea vomiting or diarrhea. She denies having any dysuria or hematuria. She denies having any headaches or neck pain. Denies having any double vision. No ear problems. Denies having any sore throat. She denies having any exposure to COVID 19 virus. In the ER patient had a CT of the head which was showing is related to atrophic and chronic small vessel ischemic changes without acute intracranial process. She also had CT angiography of the head and neck showing no significant diameter reduction to account for patient's symptoms. 06/30/2019 Patient is seen and evaluated in follow-up today and continues to have some le ft-sided upper and lower extremity weakness and was able to work with physical therapy today recommending rehab for strength and mobility. Consult for Dr. Lamar placed as patient would like to continue with inpatient rehab. Neurology also following. Per nursing staff and patient, this morning patient had an episode stating she "felt drunk" and feels that something was placed in her drink last night to make her sleepy. Patient states she had a difficult time arousing this morning to eat breakfast. Patient is alert and oriented 3 and sitting up in the chair at this time. Patient denies any dizziness, lightheadedness, shortness of breath, chest pain, or palpitations. Patient's speech is clear with no hesitation noted. No facial droop noted. 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 Right side is 5/5 on upper and lower extremity. Patient was initiated on Plavix and will continue at this time along with high-dose st atins per neurology recommendations. MRI of the brain was negative along with carotid Doppler study showing no stenosis. Awaiting consult for inpatient rehab at [facility] and acceptance at this time. Case management and social work following for discharge planning needs. Objective - Vital Signs Vital signs: Vital Signs Temp 97.8 F 06/30/19 09:11 Pulse 71 06/30/19 09:11 Resp 18 06/30/19 09:11 BP 127/63 06/30/19 09:11 Pulse Ox 97 06/30/19 09:11 Intake & Output 06/29/19 06/30/19 06/30/19 18:59 06:59 18:59 Intake Total 2436 1200 Output Total 500 Balance 2436 700 Weight 68.039 kg 70.7 kg Intake: Intake, IV Titration 2200 1200 Amount Sodium Chloride 0.9% 1, 1200 1200 000 ml @ 100 mls/hr IV . Q10H [facility] Rx#:[id number] Sodium Chloride 0.9% 1, 1000 000 ml @ 999 mls/hr IV . Q1H1M STA Rx#:[id number] Oral 236 Output: Urine 500 Other: Voiding Method Toilet Toilet Toilet # Voids 2 3 1 # Bowel Movements 1 - Exam GEN. APPEARANCE: alert, in no apparent distress HEAD EXAM: atraumatic, normocephalic, normal inspection EYE EXAM: PERRLA. No icterus. No pallor. ENT EXAM: normal exam, mucous membranes moist NECK EXAM: normal inspection. No thyromegaly. No lymphadenopathy. RESPIRATORY EXAM: normal lung sounds bilaterally. No wheeze or crackles. CARDIOVASCULAR EXAM: regular rate, normal rhythm, normal heart sounds. GI/ABDOMINAL EXAM: soft, normal bowel sounds. Nondistended, nontender. No guarding or rigidity. EXTREMITIES EXAM: No calf tenderness. No pedal edema. NEUROLOGICAL EXAM: alert, oriented X3, no facial droop. Tongue is midline. Strength is 4 out of 5 in the left upper and lower extremities. 5 out of 5 in the right upper and lower extremity. PSYCHIATRIC EXAM: normal affect, normal mood SKIN EXAM: warm, dry, intact, normal color. - Labs CBC & Chem 7: 06/29/19 09:49 06/29/19 09:49 Labs: Abnormal Lab Results - Last 24 Hours (Table) 06/29/19 06/29/19 06/29/19 Range/Units 09:49 16:35 20:26 POC Glucose (mg/dL) 230 H 228 H (75-99) mg/dL Hemoglobin A1c 7.4 H (4.0-6.0) % Triglycerides (<150) mg/dL Cholesterol (<200) mg/dL LDL Cholesterol, Calc (0-99) mg/dL HDL Cholesterol (40-60) mg/dL 06/30/19 06/30/19 Range/Units 05:45 06:01 POC Glucose (mg/dL) 238 H (75-99) mg/dL Hemoglobin A1c (4.0-6.0) % Triglycerides 308 H (<150) mg/dL Cholesterol 233 H (<200) mg/dL LDL Cholesterol, Calc 135 H (0-99) mg/dL HDL Cholesterol 36 L (40-60) mg/dL Assessment and Plan Assessment: Left-sided weakness due to Cerebrovascular accident Type 2 diabetes mellitus with hyperglycemia Hypertension Hyperlipidemia History of coronary artery disease Diabetic neuropathy Previous history of TIA Multiple joint osteoarthritis Osteoporosis Narcolepsy Diverticular disease Stress urinary incontinence Lichen sclerosis Cervical fusion of C4-C5/C5-C6/C6-C7 Right breast benign lumpectomy Umbilical hernia repair PLAN: Patient coming in with left-sided weakness for more than 24 hours, CT of the brain was negative for any acute changes. Will need an MRI. Stroke workup with echo, carotid artery Doppler will be initiated. Patient has been on insulin pump for her diabetes, she stopped it as she ran out of her refills, this morning. We'll start her on 15 units of Lantus and 5 units of twice a day before meals NovoLog. We will adjust the insulin depending upon her blood sugar levels. We will allow permissible hypertension for the next 1-2 days. She has been started on Plavix per neurology. Further recommendations to follow de pending on the progress of the patient. The treatment plan was discussed in detail with the patient at bedside.
[2019-06-30 17:08] LABS: Glucose,Whole Blood 269 mg/dL (75-99)
[2019-06-30 20:59] LABS: Glucose,Whole Blood 297 mg/dL (75-99)
[2019-06-30] MEDS: MONTELUKAST 10 MG TAB PO SCH (21:12)
[2019-06-30] MEDS: ATORVASTATIN 80 MG TAB PO SCH (21:12)
[2019-06-30] MEDS: INSULIN DETEMIR (LEVEMIR) 100 UNIT/ML SYR SQ SCH (21:13)
[2019-07-01 06:20] LABS: Glucose,Whole Blood 235 mg/dL (75-99)
[2019-07-01] MEDS: PANTOPRAZOLE 40 MG TABLET PO SCH (06:27)
[2019-07-01] MEDS: INSULIN ASPART (NovoLOG) 100 UNIT/ML VIAL SQ SCH ×2 (06:29→11:52)
[2019-07-01] MEDS: SYMBICORT 80-4.5 MCG INHALER INHALATION SCH (07:30)
[2019-07-01] MEDS: ALBUTEROL NEBULIZED 2.5 MG/3 ML INHALATION SCH ×2 (07:30→11:03)
[2019-07-01] MEDS: FLUoxetine HCL 20 MG CAP PO SCH (08:20)
[2019-07-01] MEDS: SENNOSIDES-DOCUSATE SODIUM 1 EACH TAB PO SCH ×2 (08:20→08:22)
[2019-07-01] MEDS: BACLOFEN 10 MG TAB PO SCH (08:20)
[2019-07-01] MEDS: FAMOTIDINE 20 MG/2 ML VIAL IV SCH (08:20)
[2019-07-01] MEDS: LISINOPRIL-HCTZ 10-12.5 MG 1 EACH TAB PO SCH (08:20)
[2019-07-01] MEDS: ISOSORBIDE MONONITRATE ER 30 MG TAB.ER.24H PO SCH (08:20)
[2019-07-01] MEDS: FENOFIBRATE 160 MG TAB PO SCH (08:20)
[2019-07-01] MEDS: CLOPIDOGREL 75 MG TAB PO SCH (08:20)
[2019-07-01] MEDS: PREGABALIN 100 MG CAP PO SCH (08:21)
[2019-07-01] MEDS: MODAFINIL 100 MG TAB PO SCH (08:27)
[2019-07-01] MEDS: LIDOCAINE 5% PATCH TOPICAL SCH (08:27)
[2019-07-01 08:38] VITALS: BP 161/71; PULSE 90; RESP 16; TEMP 97.6
--- NOTE | 2019-07-01 11:06 | P.DS ---
Providers Date of admission: 06/29/19 11:42 Expected date of discharge: 07/01/19 Attending physician: Vivian Sinha Consults: 06/29/19 11:30 Consult Physician Urgent Consulting Provider: Juan Barboza Consult Reason/Comments: stoke, symptoms over 24 hours, left weakness Do you want consulting provider notified?: Yes 06/30/19 12:16 Consult Physician Urgent Consulting Provider: Jovan Lamar Consult Reason/Comments: recent CVA, left side weakness/ inpatient rehab Do you want consulting provider notified?: Yes Primary care physician: Chris Saldana [facility] Course: Final diagnosis Left-sided weakness due to Cerebrovascular accident Type 2 diabetes mellitus with hyperglycemia Covid 19 ruled out Hypertension Hyperlipidemia History of coronary artery disease Diabetic neuropathy Previous history of TIA Multiple joint osteoarthritis Osteoporosis Narcolepsy Diverticular disease Stress urinary incontinence Lichen sclerosis Cervical fusion of C4-C5/C5-C6/C6-C7 Right breast benign lumpectomy Umbilical hernia repair Discharge disposition Patient is being discharged in a stable condition with guarded prognosis to [facility] inpatient rehab for continued PT/OT therapy. Patient will need to follow-up with Dr. Saldana in the outpatient setting. Patient will also need to follow-up with neurology in the outpatient setting upon discharge. Total time taken is 35 minutes. History of present illness This is a 73-year-old female who was recently admitted with weakness of the left arm and left leg and was being closely monitored. Patient was seen and evaluated by neurology for CVA. Patient underwent CT of the brain along with MRI of the brain which were negative and carotid Doppler studies were negative for stenosis. Continues to have left-sided upper and lower extremity weakness with deficits noted and was evaluated by Dr. Lamar for possible inpatient rehab at [facility]. She was seen and evaluated by physical therapy re commending subacute rehab for continued strength and mobility. Patient does have a past medical history of a TIA although is ALLERGIC to aspirin and has been initiated on Plavix per neurology and high-dose statin and will continue in the outpatient setting. Patient will need to follow-up with neurology in the outpatient setting upon discharge from the rehab along with her primary care provider as well. Currently no reports of chest pain, shortness of breath, or palpitations. Patient is afebrile. No reports of nausea or vomiting and patient is tolerating diet. Patient will be going to [facility] inpatient rehab today. On exam vital signs are stable. Temp is 97.6F, pulse is 90, respirations are 16, blood pressure 161/71, oxygen saturation is 98% on room air. Cardio S1, S2 are present. Respiratory system shows diminished breath sounds at the bases otherwise clear to auscultation. Abdomen is soft and nontender. Nervous system shows some left side upper and lower extremity weakness. Please refer to medication reconciliation sheet for a list of medications. Patient Condition at Discharge: Stable Plan - Discharge Summary Discharge Rx Participant: No New Discharge Prescriptions: New Fenofibrate [Lofibra] 160 mg PO DAILY tab oxyCODONE-APAP 5-325MG [Percocet 5-325 mg] 1 each PO BID PRN #4 tab PRN Reason: Pain Clopidogrel [Plavix] 75 mg PO DAILY tab Sennosides-Docusate Sodium [Senokot-S] 1 each PO BID tab Benzonatate [Tessalon Perles] 200 mg PO TID PRN cap PRN Reason: Cough Continue Pregabalin [Lyrica] 200 mg PO TID Pramipexole Di-HCl [Mirapex] 1 mg PO HS Pantoprazole Sodium [Protonix] 40 mg PO DAILY Atorvastatin [Lipitor] 80 mg PO HS Baclofen 5 mg PO HS Lidocaine 5% Patch [Lidoderm 5% Patch] 1 patch TOPICAL DAILY Montelukast [Singulair] 10 mg PO HS Fluticasone/Salmeterol [Advair 250-50 Diskus] 1 puff INHALATION RT-BID Albuterol Nebulized [Ventolin Nebulized] 2.5 mg INHALATION RT-QID PRN PRN Reason: Shortness Of Breath Ergocalciferol (Vitamin D2) [Vitamin D2] 50,000 unit PO TU Isosorbide Mononitrate ER [Imdur] 30 mg PO DAILY Lisinopril-Hctz 10-12.5 mg [Zestoretic 10-12.5] 1 tab PO DAILY Albuterol Sulfate [Proair Hfa] 2 puff INHALATION RT-QID PRN PRN Reason: Shortness Of Breath Insulin Detemir (Levemir) [Levemir] 20 unit SQ HS FLUoxetine HCL [PROzac] 20 mg PO DAILY Mometasone/Formoterol [Dulera 200 Mcg/5 Mcg Inhaler] 2 puff PO BID INSULIN LISPRO (For Pump) [humaLOG (For Pump)] 0.01 units SQ-PUMP CONTINUOUS Diphenox-Atrop 2.5-0.025 mg [Lomotil] 1 tab PO BID PRN #4 tab PRN Reason: Diarrhea Discontinued Fenofibrate Nanocrystallized [Tricor] 145 mg PO DAILY Niacin 500 mg PO DAILY Discharge Medication List Atorvastatin [Lipitor] 80 mg PO HS 03/21/14 [History] Baclofen 5 mg PO HS 03/21/14 [History] Pantoprazole Sodium [Protonix] 40 mg PO DAILY 03/21/14 [History] Pramipexole Di-HCl [Mirapex] 1 mg PO HS 03/21/14 [History] Pregabalin [Lyrica] 200 mg PO TID 03/21/14 [History] Lidocaine 5% Patch [Lidoderm 5% Patch] 1 patch TOPICAL DAILY 03/09/15 [History] Montelukast [Singulair] 10 mg PO HS 04/11/15 [History] Albuterol Nebulized [Ventolin Nebulized] 2.5 mg INHALATION RT-QID PRN 06/05/17 [History] Fluticasone/Salmeterol [Advair 250-50 Diskus] 1 puff INHALATION RT-BID 06/05/17 [History] Ergocalciferol (Vitamin D2) [Vitamin D2] 50,000 unit PO TU 03/19/18 [History] Isosorbide Mononitrate ER [Imdur] 30 mg PO DAILY 03/19/18 [History] Albuterol Sulfate [Proair Hfa] 2 puff INHALATION RT-QID PRN 07/10/18 [History] Lisinopril-Hctz 10-12.5 mg [Zestoretic 10-12.5] 1 tab PO DAILY 07/10/18 [History] FLUoxetine HCL [PROzac] 20 mg PO DAILY 06/29/19 [History] Insulin Detemir (Levemir) [Levemir] 20 unit SQ HS 06/29/19 [History] Mometasone/Formoterol [Dulera 200 Mcg/5 Mcg Inhaler] 2 puff PO BID 06/29/19 [History] INSULIN LISPRO (For Pump) [humaLOG (For Pump)] 0.01 units SQ-PUMP CONTINUOUS 06/30/19 [History] Benzonatate [Tessalon Perles] 200 mg PO TID PRN cap 07/01/19 [Rx] Clopidogrel [Plavix] 75 mg PO DAILY tab 07/01/19 [Rx] Diphenox-Atrop 2.5-0.025 mg [Lomotil] 1 tab PO BID PRN #4 tab 07/01/19 [Rx] Fenofibrate [Lofibra] 160 mg PO DAILY tab 07/01/19 [Rx] Sennosides-Docusate Sodium [Senokot-S] 1 each PO BID tab 07/01/19 [Rx] oxyCODONE-APAP 5-325MG [Percocet 5-325 mg] 1 each PO BID PRN #4 tab 07/01/19 [Rx] Follow up Appointment(s)/Referral(s): Chris Saldana DO [Primary Care Provider] - 1-2 days Activity/Diet/Wound Care/Special Instructions: Patient is going to [facility] inpatient rehab Continue current diet Continue working with physical therapy, activity as tolerated Follow up with neurology in the outpatient setting Follow-up with primary care provider in the outpatient setting Discharge Disposition: OTHER INSTITUTION NOT DEFINED
[2019-07-01 11:22] LABS: Glucose,Whole Blood 342 mg/dL (75-99)
== END 2019-07-01 12:48 | DRG 65 ==
LOC: EC 09:24 → 3SCARD 11:42
PROVIDERS: ADMIT Internal Medicine; ATTEND Internal Medicine
DX: I63.9 Cerebral infarction, unspecified (principal); G81.94 Hemiplegia, unspecified affecting left nondominant side; E11.40 Type 2 diabetes mellitus with diabetic neuropathy, unspecified; R29.810 Facial weakness; R27.0 Ataxia, unspecified; R29.705 NIHSS score 5; E11.65 Type 2 diabetes mellitus with hyperglycemia; E78.5 Hyperlipidemia, unspecified; G25.81 Restless legs syndrome; G47.419 Narcolepsy without cataplexy; Z11.59 Encounter for screening for other viral diseases; I10 Essential (primary) hypertension; I25.10 Atherosclerotic heart disease of native coronary artery without angina pectoris; J45.909 Unspecified asthma, uncomplicated; K57.90 Diverticulosis of intestine, part unspecified, without perforation or abscess without bleeding; L28.0 Lichen simplex chronicus; M81.0 Age-related osteoporosis without current pathological fracture; N39.3 Stress incontinence (female) (male); F32.9 Major depressive disorder, single episode, unspecified; F41.9 Anxiety disorder, unspecified; K21.9 Gastro-esophageal reflux disease without esophagitis; K44.9 Diaphragmatic hernia without obstruction or gangrene; K58.9 Irritable bowel syndrome, unspecified; M54.2 Cervicalgia; R26.9 Unspecified abnormalities of gait and mobility; G89.29 Other chronic pain; M15.9 Polyosteoarthritis, unspecified; Z79.4 Long term (current) use of insulin; Z79.51 Long term (current) use of inhaled steroids; Z79.899 Other long term (current) drug therapy; Z98.1 Arthrodesis status; Z96.41 Presence of insulin pump (external) (internal); Z90.710 Acquired absence of both cervix and uterus; Z86.73 Personal history of transient ischemic attack (TIA), and cerebral infarction without residual deficits; Z88.6 Allergy status to analgesic agent; Z79.82 Long term (current) use of aspirin; Z79.891 Long term (current) use of opiate analgesic; Z90.49 Acquired absence of other specified parts of digestive tract; Z98.42 Cataract extraction status, left eye; Z98.41 Cataract extraction status, right eye; Z86.010 Personal history of colon polyps; Z91.81 History of falling; Z80.51 Family history of malignant neoplasm of kidney; Z82.3 Family history of stroke; Z82.49 Family history of ischemic heart disease and other diseases of the circulatory system; Z83.3 Family history of diabetes mellitus; Z82.0 Family history of epilepsy and other diseases of the nervous system; W19.XXXA Unspecified fall, initial encounter
CPT/HCPCS: 36415; 70450; 70496; 70498; 70551; 71046; 80053; 80061; 81003; 83036; 84484; 85025; 85610; 85730; 87635; 93005; 93306; 93880; 94640; 96360; 96361; 99285

== ENCOUNTER → 2019-07-22 | Outpatient (CLI) | payer MEDICARE, OTHER ==
--- NOTE | 2019-07-22 11:17 | XR ---
EXAMINATION TYPE: XR femur LT DATE OF EXAM: 07/22/2019 CLINICAL HISTORY: Pain TECHNIQUE: Two views of the left femur are obtained. COMPARISON: None FINDINGS: Moderate concentric narrowing the joint space with hypertrophic change of the acetabulum. V ascular calcifications and diffuse osteopenia noted. Arthropathy of the knee joint. No erosive change s. No acute fracture. IMPRESSION: 1. Hip and knee arthropathy with no acute fracture or dislocation.
--- NOTE | 2019-07-22 11:18 | XR ---
EXAMINATION TYPE: XR Hip Complete LT DATE OF EXAM: 07/22/2019 COMPARISON: NONE HISTORY: Pain TECHNIQUE: 2 views submitted FINDINGS: There is no evidence of erosive change or acute fracture. Concentric narrowing of the left hip joint with hypertrophic change of the acetabulum can be associated with femoral acetabular impingement. SI joints symmetric. IMPRESSION: 1. No evidence of acute fracture or dislocation. If symptoms persist or there is high clinical suspic ion consider CT scan.
== END | disposition home or self-care (01) ==
LOC: RADXRYALE 10:56
PROVIDERS: ATTEND Physician Assistant
DX: M12.852 Other specific arthropathies, not elsewhere classified, left hip (principal); M12.862 Other specific arthropathies, not elsewhere classified, left knee; M25.552 Pain in left hip
CPT/HCPCS: 73502

== ENCOUNTER → 2020-03-10 | Outpatient (CLI) | payer MEDICARE, OTHER ==
--- NOTE | 2020-03-11 14:42 | MM ---
Reason for exam: screening (asymptomatic). Last mammogram was performed 1 year and 4 months ago. History: Patient is postmenopausal and has history of high-risk lesion on a previous biopsy at age 63. Family history of premenopausal breast cancer in sister at age 37 and breast cancer in grandmother at age 56. Benign MG stereo VAD BX RT of the right breast, February 23, 2015. Benign right breast needle localzation of the right breast, June 07, 2009. High risk US right guided VAD of the right breast, May 31, 2009. Took estrogen for 10 years. Physical Findings: A clinical breast exam by your physician is recommended on an annual basis and results should be correlated with mammographic findings. MG 3D Screening Mammo W/Cad Bilateral CC and MLO view(s) were taken. Prior study comparison: November 07, 2018, bilateral MG 3d screening mammo w/cad. October 02, 2017, bilateral MG 3d screening mammo w/cad. The breast tissue is heterogeneously dense. This may lower the sensitivity of mammography. Finding: There is a 8 mm circumscribed oval mass located 3-4 cm from the nipple in the lower outer quadrant, anterior position of the right breast. There is no discrete abnormality. New finding since November 07, 2018 and October 02, 2017. ASSESSMENT: Incomplete: need additional imaging evaluation, BI-RAD 0 RECOMMENDATION: Ultrasound of the right breast. [facility] will attempt to contact patient to return for ultrasound.
== END | disposition home or self-care (01) ==
LOC: RADMAMWWP 10:46
PROVIDERS: ATTEND Family Medicine
DX: Z12.31 Encounter for screening mammogram for malignant neoplasm of breast (principal)
CPT/HCPCS: 77063; 77067

== ENCOUNTER → 2020-03-23 | Outpatient (CLI) | payer MEDICARE, OTHER ==
--- NOTE | 2020-03-23 14:21 | USB ---
Reason for exam: additional evaluation requested from abnormal screening. History: Patient is postmenopausal and has history of high-risk lesion on a previous biopsy at age 63. Family history of premenopausal breast cancer in sister at age 37 and breast cancer in grandmother at age 56. Benign MG stereo VAD BX RT of the right breast, February 23, 2015. Benign right breast needle localzation of the right breast, June 07, 2009. High risk US right guided VAD of the right breast, May 31, 2009. Took estrogen for 10 years. Physical Findings: Nurse did not find any significant physical abnormalities on exam. US Breast Workup Limited RT Right limited breast ultrasound including focal area of concern, retroareolar and axilla demonstrates a 0.9 x 1.0 x 0.4cm mixed lesion at 8 o'clock. These results were verbally communicated with the patient and result sheet given to the patient on 03/23/20. ASSESSMENT: Suspicious, BI-RAD 4 RECOMMENDATION: Ultrasound core biopsy of the right breast. Called Dr. Caicedo's office with mammographic findings and has scheduled an appointment for the patient for 05/12/20 at 11:[address] Jackson. Biopsy scheduled for 04/01/20 at 9:30. PRELIMINARY REPORT CALLED AND FAXED TO DR. JACKSON ON 03/23/20.
== END | disposition home or self-care (01) ==
LOC: RADUSWWP 07:20
PROVIDERS: ATTEND Family Medicine
DX: R92.8 Other abnormal and inconclusive findings on diagnostic imaging of breast (principal)

== ENCOUNTER → 2020-03-28 | Outpatient (CLI) | payer MEDICARE, OTHER ==
--- NOTE | 2020-03-28 15:46 | XR ---
Fifth digit left hand HISTORY: Trauma and pain 2 views the fifth digit left hand There is a flexion deformity distally the fifth digit of the left hand, correlate for possible tendon disruption. No evident fracture or dislocation. IMPRESSION: Correlate for tendon disruption.
== END | disposition home or self-care (01) ==
LOC: RADXRYALE 15:22
PROVIDERS: ATTEND Physician Assistant Medical
DX: M79.645 Pain in left finger(s) (principal)

== ENCOUNTER → 2020-04-01 | Day surgery (SDC) | payer MEDICARE, OTHER ==
[2020-04-01 09:51] VITALS: RESP 16
[2020-04-01 10:46] VITALS: BP 113/73; PULSE 85; TEMP 98.4
--- NOTE | 2020-04-01 11:03 | USB ---
EXAMINATION TYPE: US biopsy breast VAD RT, MG diagnostic mammo RT wo CAD DATE OF EXAM: 04/01/2020 CLINICAL HISTORY: R92.8 abnormal mammogram. TECHNIQUE: Ultrasound guided core biopsy of Right 8:00 breast. COMPARISON: NONE FINDINGS: The procedure of ultrasound guided core biopsy was explained to the patient. Benefits, alternatives, and risks were discussed. An informed consent was then obtained. The patient was placed in supine positioning for imaging and for the procedure. The overlying skin was prepped and draped in usual sterile fashion. Lidocaine buffered with bicarbonate was used as anesthetic into the skin and subcutaneous tissue up to area of concern in the Right 8:00 breast. A lyubov was made with surgical scalpel. Under ultrasound guidance, a 12-gauge vacuum assisted biopsy gun device was used to obtain 2 core samples. Lesion no longer visible. Following this, a biopsy clip was left in lesion. Postprocedural mammogram demonstrates appropriate clip placement. The patient tolerated the procedure well without any immediate complication. The patient was kept in the radiology department for short stay after the procedure and then discharged home in stable condition. IMPRESSION: Successful, uncomplicated ultrasound guided core biopsy of area of concern in the Right 8:00 breast, full pathology results to follow. Pathology Results: Benign RIGHT BREAST, 8:00, ULTRASOUND GUIDED CORE BIOPSY: Fibrocystic changes including cysts and apocrine metaplasia. Recommendation Follow up mammogram of the right breast in 6 months. CLARI
== END ==
LOC: RADUSWWP 09:25
PROVIDERS: ATTEND Surgery
DX: N60.11 Diffuse cystic mastopathy of right breast (principal); N60.81 Other benign mammary dysplasias of right breast
CPT/HCPCS: 88305; 77065; 19083; A4648; J2001

== ENCOUNTER → 2020-09-30 | Outpatient (CLI) | payer MEDICARE, OTHER ==
--- NOTE | 2020-09-30 13:00 | MM ---
Reason for exam: follow-up at short interval from prior study. Last mammogram was performed 6 months ago. History: Patient is postmenopausal and has history of high-risk lesion on a previous biopsy at age 63. Family history of premenopausal breast cancer in sister at age 37 and breast cancer in grandmother at age 56. Benign US biopsy breast VAD RT of the right breast, April 01, 2020. Benign MG stereo VAD BX RT of the right breast, February 23, 2015. Benign right breast needle localzation of the right breast, June 07, 2009. High risk US right guided VAD of the right breast, May 31, 2009. Took estrogen for 10 years. Physical Findings: Nurse did not find any significant physical abnormalities on exam. MG 3D Diag Mammo W/Cad RT CC and MLO view(s) were taken of the right breast. Prior study comparison: April 01, 2020, right breast MG diagnostic mammo RT wo CAD. March 10, 2020, bilateral MG 3d screening mammo w/cad. The breast tissue is heterogeneously dense. This may lower the sensitivity of mammography. No significant new findings when compared with previous films. These results were verbally communicated with the patient and result sheet given to the patient on 09/30/20. ASSESSMENT: Benign, BI-RAD 2 RECOMMENDATION: Return to routine screening mammogram schedule for both breasts. Back on schedule.
== END | disposition home or self-care (01) ==
LOC: RADMAMWWP 09:56
PROVIDERS: ATTEND Surgery
DX: R92.2 Inconclusive mammogram (principal); Z78.0 Asymptomatic menopausal state; Z80.3 Family history of malignant neoplasm of breast
CPT/HCPCS: 77065; G0279; 77061

== ENCOUNTER → 2020-11-09 | Outpatient (CLI) | payer MEDICARE, OTHER ==
--- NOTE | 2020-11-09 13:25 | XR ---
Right shoulder HISTORY: Trauma and pain, [id number] RT SHLD PAIN,FALL 3 views of the right shoulder, correlation to prior exam 07/10/2018 Postop changes are noted incidentally in the cervical spine. Bone mineralization, joint spaces and al ignment are maintained within the right shoulder. impression: No fracture or dislocation.
== END | disposition home or self-care (01) ==
LOC: RADXRYALE 11:31
PROVIDERS: ATTEND Physician Assistant Medical
DX: S49.91XA Unspecified injury of right shoulder and upper arm, initial encounter (principal); M25.511 Pain in right shoulder; W19.XXXA Unspecified fall, initial encounter

== ENCOUNTER → 2021-03-26 | Outpatient (CLI) | payer MEDICARE, OTHER ==
--- NOTE | 2021-03-26 12:09 | MR ---
EXAMINATION TYPE: MR lumbar spine wo con DATE OF EXAM: 03/26/2021 COMPARISON: MRI lumbar spine March 06, 2017 HISTORY: LBP, radiates into right buttock. Hx surgery 2019. TECHNIQUE: Multiplanar, multisequence imaging of the lumbar spine is performed without IV contrast. FINDINGS: Sagittal images of the lumbar spine show vertebral body heights and alignment to remains st able. Multilevel disc desiccation redemonstrated. Mild to moderate anterior disc space narrowing and spurring L1-L2 level redemonstrated. The conus medullaris remains normal in position and signal endi ng superior L1 level. The bone marrow signal intensity is within normal limits. Mild to moderate mul tilevel anterior spurring redemonstrated. Axial images at T12-L1 level remain within normal limits. Axial images at L1-L2 level redemonstrate broad-based right paracentral disc protrusion effacing the anterior thecal sac, patent bilateral neural foramina. No significant change from prior. Axial images at L2-L3 redemonstrate mild facet degenerative changes bilaterally with mild broad disc bulge mildly effacing the anterior thecal sac and mild bilateral inferior neural foraminal narrowing. No significant change from prior. Axial images at L3-L4 level demonstrate mild to moderate broad disc bulge mildly effacing the anterio r thecal sac and [id number] facet arthropathy bilaterally. There is mild to moderate left great er than right bilateral anterior inferior neural foraminal narrowing. Findings are slightly more prom inent versus prior. Axial images at L4-L5 level show left-sided laminectomy defect new from prior. There is broad-based p osterior disc protrusion minimally effacing anterior thecal sac. There is mild left-sided anterior in ferior neural foraminal narrowing. Right-sided neural foramen is patent. Axial images at the L5-S1 level show moderate to advanced facet arthropathy bilaterally. There is janis tral disc protrusion but spinal canal is minimally effaced. Patent bilateral neural foramina. No sign ificant change from prior. Paraspinal muscle bulk is maintained. IMPRESSION: New left-sided laminectomy defect L4-L5 level. Multilevel degenerative changes redemonstr ated as detailed above, some degenerative progression noted at L3-L4 level otherwise no significant c hange from prior MRI is seen.
== END | disposition home or self-care (01) ==
LOC: RADMRIMAIN 11:21
PROVIDERS: ATTEND Orthopaedic Surgery
DX: M51.16 Intervertebral disc disorders with radiculopathy, lumbar region (principal); M47.26 Other spondylosis with radiculopathy, lumbar region
CPT/HCPCS: 72148

== ENCOUNTER 2021-05-29 09:45 | Inpatient (IN) | payer MEDICARE, OTHER ==
--- NOTE | 2021-05-29 10:12 | ED ---
General Adult HPI - General Chief complaint: Neuro Symptoms/Deficit Stated complaint: slurred speech, double vision, headache Sat. Time Seen by Provider: 05/29/21 09:50 Source: patient, RN notes reviewed, old records reviewed Mode of arrival: wheelchair Limitations: no limitations - History of Present Illness Initial comments: This a 75-year-old female who presents emergency Department stating that on Saturday she started having double vision and she's had it since though at times is better at times is worse. Patient also states she's had some exp ressive the patient it's not as bad as it has been but she still is unable to get off thoughts out of her head. Patient states she has had no slurred speech however her thinks she is a little slurred. Patient also complains of ataxia. Patient states when she walks she feels as though she's going to fall over. Patient states she's had TIAs in the past and thought this would just passed. Patient states the reason she came to discuss this morning she vomited and it was green some she was concerned and came in. Patient denies any chest pain or palpitations. Patient shortness of breath or difficulty breathing. Patient denies any fever chills or cough per patient denies abdominal pain patient denies any back pain. - Related Data Home Medications Medication Instructions Recorded Confirmed Atorvastatin [Lipitor] 80 mg PO HS 03/21/14 05/29/21 Pantoprazole Sodium [Protonix] 40 mg PO DAILY 03/21/14 05/29/21 Pramipexole Di-HCl [Mirapex] 1.5 mg PO HS 03/21/14 05/29/21 Pregabalin [Lyrica] 200 mg PO BID 03/21/14 05/29/21 Montelukast [Singulair] 10 mg PO HS 04/11/15 05/29/21 Albuterol Nebulized [Ventolin 2.5 mg INHALATION RT-QID PRN 06/05/17 05/29/21 Nebulized] Mometasone/Formoterol [Dulera 200 2 puff INHALATION RT-BID PRN 06/29/19 05/29/21 Mcg-5 Mcg Inhaler] INSULIN LISPRO (For Pump) [humaLOG 0.01 units SQ-PUMP CONTINUOUS 06/30/19 05/29/21 (For Pump)] Lisinopril [Prinivil] 10 mg PO DAILY 03/24/20 05/29/21 Cholestyramine (with Sugar) 4 gm PO DAILY 05/29/21 05/29/21 [Cholestyramine Packet] Clobetasol Propionate [Temovate 1 applic TOPICAL BID 05/29/21 05/29/21 0.05% Cream] Dicyclomine [Bentyl] 10 mg PO QID PRN 05/29/21 05/29/21 Ergocalciferol [Vitamin D2 (1250 1,250 mcg PO TU 05/29/21 05/29/21 Mcg = 13452 Iu)] HYDROcodone/APAP 5-325MG [[place] 1 tab PO Q6H 05/29/21 05/29/21 5-325] Insulin Detemir [Levemir Flextouch 18 - 20 units SQ HS 05/29/21 05/29/21 Pen] lisinopriL [Zestril] 10 mg PO HS PRN 05/29/21 05/29/21 modafiniL [Provigil] 200 mg PO DAILY 05/29/21 05/29/21 Allergies Allergy/AdvReac Type Severity Reaction Status Date / Time aspirin Allergy Swelling Verified 05/29/21 11:25 ibuprofen Allergy Swelling Verified 05/29/21 11:25 ipratropium bromide Allergy Swelling Verified 05/29/21 11:25 [From Atrovent] meperidine HCl [From Demerol] Allergy Rash/Hives Verified 05/29/21 11:25 nickel Allergy Unknown Verified 05/29/21 11:25 hydromorphone HCl AdvReac Nausea & Verified 05/29/21 11:25 [From Dilaudid] Vomiting metformin AdvReac Unknown Verified 05/29/21 11:25 morphine AdvReac Vomiting Verified 05/29/21 11:25 trazodone AdvReac Weakness Verified 05/29/21 11:25 zolpidem tartrate AdvReac Hallucinati Verified 05/29/21 11:25 [From Ambien] ons MSG AdvReac Rash/Hives Uncoded 05/29/21 09:48 Review of Systems ROS Statement: Those systems with pertinent positive or pertinent negative responses have been documented in the HPI. ROS Other: All systems not noted in ROS Statement are negative. Past Medical History Past Medical History: Asthma, Coronary Artery Disease (CAD), CVA/TIA, Diabetes Mellitus, GERD/Reflux, Hyperlipidemia, Hypertension, Osteoarthritis (OA), Pneumonia Additional Past Medical History / Comment(s): cva affected rt side pt states r egained most strength to rt arm/hand and R leg, IDDM type II, neuropathy bilateral feet, RLS, chronic cervical pain, osteoporosis, narcolepsy, hiatal hernia, diverticular disease, IBS, stress urine incontinence, lichens sclerosis, falls, asthma History of Any Multi-Drug Resistant Organisms: None Reported Past Surgical History: Appendectomy, Breast Surgery, Cholecystectomy, Heart Catheterization, Hernia Repair, Hysterectomy, Orthopedic Surgery Additional Past Surgical History / Comment(s): 06/24/18 Cervical fusions C4-C5/C 5-C6/C6-C7 at [facility],01/2019 Lower back surgery at [facility] R breast benign lumpectomy, cardiac cath showed mild disease, umbilical hernia repair, D&C, bilateral cataract removals, EGD, colonoscopy with benign polyp, cystocele, rectocele, vuvular bx, liver bx d/t elevated LFT. Past Anesthesia/Blood Transfusion Reactions: No Reported Reaction Past Psychological History: Anxiety, Depression Smoking Status: Never smoker Past Alcohol Use History: None Reported Past Drug Use History: None Reported - Past Family History Mother Family Medical History: Hyperlipidemia, Hypertension Additional Family Medical History / Comment(s): ANEMIA Father Family Medical History: Cancer, CVA/TIA, Diabetes Mellitus Additional Family Medical History / Comment(s): CVA, kidney cancer. General Exam - General Exam Comments Initial Comments: GENERAL: Patient is well-developed and well-nourished. Patient is nontoxic and well- hydrated and is in mild distress. ENT: Neck is soft and supple. No significant lymphadenopathy is noted. Oropharynx is clear. Moist mucous membranes. Neck has full range of motion without eliciting any pain. EYES: The sclera were anicteric and conjunctiva were pink and moist. Extraocular movements were intact and pupils were equal round and reactive to light. Eyelids were unremarkable. PULMONARY: Unlabored respirations. Good breath sounds bilaterally. No audible rales rhonchi or wheezing was noted. CARDIOVASCULAR: There is a regular rate and rhythm without any murmurs gallops or rubs. ABDOMEN: Soft and nontender with normal bowel sounds. SKIN: Skin is clear with no lesions or rashes and otherwise unremarkable. NEUROLOGIC: Patient is alert and oriented x3. Cranial nerves II through XII are grossly intact. Motor and sensory are also intact. Patient is having some very minimal expressive aphasia and at times is worse and other times. Symmetrical smile. Patient's having difficulty doing [id number] and heel to baltazar. MUSCULOSKELETAL: Normal extremities with adequate strength and full range of motion. No lower extremity swelling or edema. No calf tenderness. LYMPHATICS: No significant lymphadenopathy is noted PSYCHIATRIC: Normal psychiatric evaluation. Limitations: no limitations Course Vital Signs 05/29/21 09:48 Temperature 98.1 F Pulse Rate 114 H Respiratory 16 Rate Blood Pressure 166/70 O2 Sat by Pulse 94 L Oximetry Medical Decision Making - Medical Decision Making EKG shows sinus tachycardia at 101 bpm MS interval 165 QRSs 80 QT interval 337 QTC is 395 per patient's EKG shows no ST segment elevation or depression. CT of the brain shows no acute abnormality. CTA shows some narrowing of the internal carotid artery. Patient still has some expressive aphasia and is still having coordination issues with her hands as well as ataxia with walking. I spoke with because he agreed to admit the patient admitted the patient I consult the neurology - Lab Data Result diagrams: 05/29/21 10:18 05/29/21 10:18 Lab Results 05/29/21 05/29/21 05/29/21 Range/Units 10:18 10:18 10:18 WBC 10.9 H (3.8-10.6) k/uL RBC 5.00 (3.80-5.40) m/uL Hgb 15.2 (11.4-16.0) gm/dL Hct 43.9 (34.0-46.0) % MCV 87.7 (80.0-100.0) fL MCH 30.4 (25.0-35.0) pg MCHC 34.6 (31.0-37.0) g/dL RDW 13.8 (11.5-15.5) % Plt Count 218 (150-450) k/uL MPV 7.7 Neutrophils % 89 % Lymphocytes % 6 % Monocytes % 4 % Eosinophils % 1 % Basophils % 0 % Neutrophils # 9.7 H (1.3-7.7) k/uL Lymphocytes # 0.6 L (1.0-4.8) k/uL Monocytes # 0.4 (0-1.0) k/uL Eosinophils # 0.1 (0-0.7) k/uL Basophils # 0.1 (0-0.2) k/uL PT 10.2 (9.0-12.0) sec INR 0.9 (<1.2) APTT 22.6 (22.0-30.0) sec Sodium 140 (137-145) mmol/L Potassium 4.1 (3.5-5.1) mmol/L Chloride 102 (98-107) mmol/L Carbon Dioxide 24 (22-30) mmol/L Anion Gap 14 mmol/L BUN 17 (7-17) mg/dL Creatinine 0.64 (0.52-1.04) mg/dL Est GFR (CKD-EPI)AfAm >90 (>60 ml/min/1.73 sqM) Est GFR (CKD-EPI)NonAf 89 (>60 ml/min/1.73 sqM) Glucose 167 H (74-99) mg/dL Calcium 9.9 (8.4-10.2) mg/dL Total Bilirubin 0.9 (0.2-1.3) mg/dL AST 21 (14-36) U/L ALT 17 (4-34) U/L Alkaline Phosphatase 79 (38-126) U/L Troponin I (0.000-0.034) ng/mL Total Protein 7.6 (6.3-8.2) g/dL Albumin 4.6 (3.5-5.0) g/dL 05/29/21 Range/Units 10:18 WBC (3.8-10.6) k/uL RBC (3.80-5.40) m/uL Hgb (11.4-16.0) gm/dL Hct (34.0-46.0) % MCV (80.0-100.0) fL MCH (25.0-35.0) pg MCHC (31.0-37.0) g/dL RDW (11.5-15.5) % Plt Count (150-450) k/uL MPV Neutrophils % % Lymphocytes % % Monocytes % % Eosinophils % % Basophils % % Neutrophils # (1.3-7.7) k/uL Lymphocytes # (1.0-4.8) k/uL Monocytes # (0-1.0) k/uL Eosinophils # (0-0.7) k/uL Basophils # (0-0.2) k/uL PT (9.0-12.0) sec INR (<1.2) APTT (22.0-30.0) sec Sodium (137-145) mmol/L Potassium (3.5-5.1) mmol/L Chloride (98-107) mmol/L Carbon Dioxide (22-30) mmol/L Anion Gap mmol/L BUN (7-17) mg/dL Creatinine (0.52-1.04) mg/dL Est GFR (CKD-EPI)AfAm (>60 ml/min/1.73 sqM) Est GFR (CKD-EPI)NonAf (>60 ml/min/1.73 sqM) Glucose (74-99) mg/dL Calcium (8.4-10.2) mg/dL Total Bilirubin (0.2-1.3) mg/dL AST (14-36) U/L ALT (4-34) U/L Alkaline Phosphatase (38-126) U/L Troponin I <0.012 (0.000-0.034) ng/mL Total Protein (6.3-8.2) g/dL Albumin (3.5-5.0) g/dL Disposition Clinical Impression: CVA (cerebral vascular accident) Disposition: ADMITTED IP TO THIS HOSP Referrals: Chris Caicedo DO [Primary Care Provider] - 1-2 days Time of Disposition: 12:12
--- NOTE | 2021-05-29 10:46 | CT ---
EXAMINATION TYPE: CT brain wo con for TPA DATE OF EXAM: 05/29/2021 COMPARISON: 06/29/19 HISTORY: Slurred speech, double vision, headache CT DLP: 1051.[address] of the brain was performed. The ventricles, basal cisterns and sulci overlying the cerebral convexities demonstrate mild enlargem ent. There is no evidence for intracranial hemorrhage or sulcal effacement. There is decreased attenuation about the periventricular white matter and deep white matter of both c erebral hemispheres, compatible with chronic small vessel ischemia. Differential diagnosis does inclu de demyelination. No mass effects are seen.No midline shift. Osseous calvarium is intact. If symptoms persist consider MRI. IMPRESSION: 1. Age related atrophic and chronic small vessel ischemic change without acute intracranial process s een at this time.
--- NOTE | 2021-05-29 11:00 | XR ---
EXAMINATION TYPE: XR chest 2V DATE OF EXAM: 05/29/2021 COMPARISON: 06/29/2019 TECHNIQUE: PA and lateral views submitted. HISTORY: Altered mental status FINDINGS: The lungs are clear and there is no pneumothorax, pleural effusion, or focal pneumonia. Postsurgical change cervical spine. Heart size normal. No overt failure. Surgical clips in the abdomen. Degenerat melissa change of the spine. Diffuse osteopenia. Arthropathy of the shoulders. IMPRESSION: 1. No acute process.
[2021-05-29 11:11] LABS: ALT 17 U/L (4-34); AST 21 U/L (14-36); African American GFR (CKD) >90 (>60 ml/min/1.73 sqM); Albumin 4.6 g/dL (3.5-5.0); Alkaline Phosphatase 79 U/L (38-126); Anion Gap 14 mmol/L; Blood Urea Nitrogen 17 mg/dL (7-17); Calcium 9.9 mg/dL (8.4-10.2); Carbon Dioxide 24 mmol/L (22-30); Chloride 102 mmol/L (98-107); Glucose 167 mg/dL (74-99); Non-African American GFR(CKD) 89 (>60 ml/min/1.73 sqM); Potassium 4.1 mmol/L (3.5-5.1); Sodium 140 mmol/L (137-145); Total Bilirubin 0.9 mg/dL (0.2-1.3); Total Protein 7.6 g/dL (6.3-8.2)
[2021-05-29 11:23] LABS: Basophils # (A) 0.1 k/uL (0-0.2); Basophils % (A) 0 %; Eosinophils # (A) 0.1 k/uL (0-0.7); Eosinophils % (A) 1 %; HCT 43.9 % (34.0-46.0); HGB 15.2 gm/dL (11.4-16.0); Lymphocytes # (A) 0.6 k/uL (1.0-4.8); Lymphocytes % (A) 6 %; MCH 30.4 pg (25.0-35.0); MCHC 34.6 g/dL (31.0-37.0); MCV 87.7 fL (80.0-100.0); Mean Platelet Volume 7.7; Monocytes # (A) 0.4 k/uL (0-1.0); Monocytes % (A) 4 %; Neutrophils # (A) 9.7 k/uL (1.3-7.7); Neutrophils % (A) 89 %; Platelet Count 218 k/uL (150-450); RDW 13.8 % (11.5-15.5); WBC 10.9 k/uL (3.8-10.6)
[2021-05-29 11:39] LABS: INR 0.9 (<1.2); Partial Thromboplastin Time 22.6 sec (22.0-30.0); Prothrombin Time 10.2 sec (9.0-12.0)
--- NOTE | 2021-05-29 11:40 | CT ---
EXAMINATION TYPE: CT angio head neck DATE OF EXAM: 05/29/2021 HISTORY: Slurred speech, double vision, headache COMPARISON: Nonenhanced CT brain performed earlier same day CT DLP: 419.7 mGycm. Automated Exposure Control for Dose Reduction was Utilized. TECHNIQUE: CTA scan of the neck and head is performed with IV Contrast, patient injected with 65 mL of Isovue 370, axial images are obtained, coronal and sagittal reformatted images are reviewed. 3D re constructed images are created on an independent workstation and reviewed. FINDINGS: Carotid/Vascular Structures: Scattered arterial atherosclerotic calcification. Suspected stenosis of the supraclinoid portion of the right internal carotid artery. Hypoplastic A1 segment of the right AC A. Otherwise normal caliber and enhancement the major neck and intracranial arteries without other si gnificant stenosis, occlusion, dissection, aneurysm or AV malformation. Other: No intracranial abnormal enhancement. Previous cervical spinal fixation from C4 down to C7. IMPRESSION: Suspected stenosis of the supraclinoid portion of the right internal carotid artery, otherwise no oth er significant stenosis, occlusion or other acute abnormality of the major neck or the intracranial a rteries.
[2021-05-29] MEDS ORDERED: DICYCLOMINE 10 MG CAP PO PRN (12:50)
[2021-05-29] MEDS ORDERED: SYMBICORT 160-4.5 MCG INHALER INHALATION PRN (12:50)
[2021-05-29] MEDS ORDERED: ALBUTEROL NEBULIZED 2.5 MG/3 ML INHALATION PRN (12:50)
[2021-05-29] MEDS ORDERED: CLOPIDOGREL 75 MG TAB PO STA (13:19)
--- NOTE | 2021-05-29 13:23 | P.HPIM ---
History of Present Illness Patient is a 5-year-old female came in with compensative nausea vomiting. Although patient did complain the patient was having some speech abnormalities blurry vision and some episodes of confusion which started on Saturday and tara wood believed they will get better and as per the patient they did get better, patient had history of TIAs in the past. Patient was ALLERGIC to aspirin and patient was on Plavix for some time after that Plavix was discontinued and she was told she doesn't need it anymore. Patient does have history of diabetes mellitus hypertension denied any history of smoking although her smokes. Patient had some unstable gait which as per the patient and is chronic, patient had ataxia. REVIEW OF SYSTEMS: CONSTITUTIONAL: No fever, no malaise, no fatigue. HEENT: No recent visual problems or hearing problems. Denied any sore throat. CARDIOVASCULAR: No chest pain, orthopnea, PND, no palpitations, no syncope. PULMONARY: No shortness of breath, no cough, no hemoptysis. GASTROINTESTINAL: No diarrhea, no nausea, no vomiting, no abdominal pain. NEUROLOGICAL: As mentioned in the history HEMATOLOGICAL: Denies any bleeding or petechiae. GENITOURINARY: Denies any burning micturition, frequency, or urgency. MUSCULOSKELETAL/RHEUMATOLOGICAL: Denies any joint pain, swelling, or any muscle pain. ENDOCRINE: Denies any polyuria or polydipsia. The rest of the 14-point review of systems is negative. PHYSICAL EXAMINATION: GENERAL: The patient is alert and oriented x3, not in any acute distress. Well developed, well nourished. HEENT: Pupils are round and equally reacting to light. EOMI. No scleral icterus. No conjunctival pallor. Normocephalic, atraumatic. No pharyngeal erythema. No thyromegaly. CARDIOVASCULAR: S1 and S2 present. No murmurs, rubs, or gallops. PULMONARY: Chest is clear to auscultation, no wheezing or crackles. ABDOMEN: Soft, nontender, nondistended, normoactive bowel sounds. No palpable organomegaly. MUSCULOSKELETAL: No joint swelling or deformity. EXTREMITIES: No cyanosis, clubbing, or pedal edema. NEUROLOGICAL: Gross neurological examination did not reveal any focal deficits. He does have dysdiadochokinesis and possible aphasia her speech is not normal. SKIN: No rashes. Assessment and plan 1 possibility of a transient ischemic attack/cerebrovascular accident: Neurology was consulted. Patient will be started on Plavix continue with atorvastatin. Unsure whether patient actually had a TIA or stroke but does have some slurred speech. Echo will be ordered patient previous echocardiogram in 2019 was essentially within normal limits. -Coronary artery disease -Type 2 diabetes mellitus patient will be resumed on insulin pump and long- acting insulin -Gastroesophageal reflux disease -Hyperlipidemia -Hypertension -patient had a recent rotator cuff surgery for which patient has a sling -Depression DVT prophylaxis: Lovenox 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, IDDM type II, neuropathy bilateral feet, RLS, chronic cervical pain, osteoporosis, narcolepsy, hiatal hernia, diverticular disease, IBS, stress urine incontinence, lichens sclerosis, falls, asthma History of Any Multi-Drug Resistant Organisms: None Reported Past Surgical History: Appendectomy, Breast Surgery, Cholecystectomy, Heart Catheterization, Hernia Repair, Hysterectomy, Orthopedic Surgery Additional Past Surgical History / Comment(s): 06/24/18 Cervical fusions C4-C5/C5-C6/C6-C7 at [facility],01/2019 Lower back surgery at [facility] R breast benign lumpectomy, cardiac cath showed mild disease, umbilical hernia repair, D&C, bilateral cataract removals, EGD, colonoscopy with benign polyp, cystocele, rectocele, vuvular bx, liver bx d/t elevated LFT. Past Anesthesia/Blood Transfusion Reactions: No Reported Reaction Past Psychological History: Anxiety, Depression Smoking Status: Never smoker Past Alcohol Use History: None Reported Past Drug Use History: None Reported - Past Family History Mother Family Medical History: Hyperlipidemia, Hypertension Additional Family Medical History / Comment(s): ANEMIA Father Family Medical History: Cancer, CVA/TIA, Diabetes Mellitus Additional Family Medical History / Comment(s): CVA, kidney cancer. Medications and Allergies Home Medications Medication Instructions Recorded Confirmed Type Atorvastatin [Lipitor] 80 mg PO HS 03/21/14 05/29/21 History Pantoprazole Sodium [Protonix] 40 mg PO DAILY 03/21/14 05/29/21 History Pramipexole Di-HCl [Mirapex] 1.5 mg PO HS 03/21/14 05/29/21 History Pregabalin [Lyrica] 200 mg PO BID 03/21/14 05/29/21 History Montelukast [Singulair] 10 mg PO HS 04/11/15 05/29/21 History Albuterol Nebulized [Ventolin 2.5 mg INHALATION RT-QID PRN 06/05/17 05/29/21 History Nebulized] Mometasone/Formoterol [Dulera 200 2 puff INHALATION RT-BID PRN 06/29/19 05/29/21 History Mcg-5 Mcg Inhaler] INSULIN LISPRO (For Pump) [humaLOG 0.01 units SQ-PUMP CONTINUOUS 06/30/19 05/29/21 History (For Pump)] Lisinopril [Prinivil] 10 mg PO DAILY 03/24/20 05/29/21 History Cholestyramine (with Sugar) 4 gm PO DAILY 05/29/21 05/29/21 History [Cholestyramine Packet] Clobetasol Propionate [Temovate 1 applic TOPICAL BID 05/29/21 05/29/21 History 0.05% Cream] Dicyclomine [Bentyl] 10 mg PO QID PRN 05/29/21 05/29/21 History Ergocalciferol [Vitamin D2 (1250 1,250 mcg PO TU 05/29/21 05/29/21 History Mcg = 27628 Iu)] HYDROcodone/APAP 5-325MG [[place] 1 tab PO Q6H 05/29/21 05/29/21 History 5-325] Insulin Detemir [Levemir Flextouch 18 - 20 units SQ HS 05/29/21 05/29/21 History Pen] lisinopriL [Zestril] 10 mg PO HS PRN 05/29/21 05/29/21 History modafiniL [Provigil] 200 mg PO DAILY 05/29/21 05/29/21 History Allergies Allergy/AdvReac Type Severity Reaction Status Date / Time aspirin Allergy Swelling Verified 05/29/21 11:25 ibuprofen Allergy Swelling Verified 05/29/21 11:25 ipratropium bromide Allergy Swelling Verified 05/29/21 11:25 [From Atrovent] meperidine HCl [From Demerol] Allergy Rash/Hives Verified 05/29/21 11:25 nickel Allergy Unknown Verified 05/29/21 11:25 hydromorphone HCl AdvReac Nausea & Verified 05/29/21 11:25 [From Dilaudid] Vomiting metformin AdvReac Unknown Verified 05/29/21 11:25 morphine AdvReac Vomiting Verified 05/29/21 11:25 trazodone AdvReac Weakness Verified 05/29/21 11:25 zolpidem tartrate AdvReac Hallucinati Verified 05/29/21 11:25 [From Ambien] ons MSG AdvReac Rash/Hives Uncoded 05/29/21 09:48 Physical Exam Vitals: Vital Signs Temp Pulse Resp BP Pulse Ox 05/29/21 12:55 76 18 149/74 99 05/29/21 09:48 98.1 F 114 H 16 166/70 94 L Intake and Output 05/28/21 05/29/21 05/29/21 22:59 06:59 14:59 Other: Weight 77.111 kg Results CBC & Chem 7: 05/29/21 10:18 05/29/21 10:18 Labs: Abnormal Lab Results - Last 24 Hours (Table) 05/29/21 05/29/21 Range/Units 10:18 10:18 WBC 10.9 H (3.8-10.6) k/uL Neutrophils # 9.7 H (1.3-7.7) k/uL Lymphocytes # 0.6 L (1.0-4.8) k/uL Glucose 167 H (74-99) mg/dL
[2021-05-29] MEDS: INSULIN LISPRO (For Pump) 100 UNIT/ML VIAL SQ-PUMP SCH (14:17)
[2021-05-29] MEDS: HYDROcodone/APAP 5-325MG 1 EACH TAB PO SCH ×2 (14:22→20:16)
[2021-05-29 14:38] LABS: Appearance,Urine Clear (Clear); Bilirubin,Urine Negative (Negative); Blood,Urine Negative (Negative); Color,Urine Yellow; Glucose,Urine (UA) Negative (Negative); Ketones,Urine Negative (Negative); Leukocyte Esterase,Urine Negative (Negative); Nitrite,Urine Negative (Negative); PH, Urine 6.5 (5.0-8.0); Protein,Urine Trace (Negative); Urobilinogen,Urine <2.0 mg/dL (<2.0)
[2021-05-29 15:16] LABS: Specific Gravity,Urine >1.050 (1.001-1.035)
--- NOTE | 2021-05-29 15:25 | P.CNNES ---
History of Present Illness Consult date: 05/29/21 Requesting physician: Red Hylton Reason for Consult: cva History of Present Illness: This is a 75-year-old woman with medical history of possible stroke manifesting with mild left hemisensory loss and ataxia in 2019, TIA diabetes, hypertension, hyperlipidemia, diabetic neuropathy, coronary artery disease status post a cath, cervical fusion or C4 to C7, lower back surgery presented emergency department on 05/29/2021 because of double vision and slurred speech. According to the patient that since this past Saturday she's been having diplopia of both eyes but she could not tell me after [id number] or up-and-down and they felt that they're coming on and off but not worse the at the end of the night or with activity. She stated that her felt like she was slurring her speech and she was having difficulty getting her words out. She denies of any focal weakness. Patient stated that she had a fall and it was mechanical as a result she had the right rotator cuff tear and had surgery in april,. Patient is not on any antiplatelets or anticoagulation. Patient's feeling much better. She is wearing the sling for her right arm and is complaining of right neck pain since this past Saturday. She denies of any headache. She denies of any radiation of her neck pain. She denies of any numbness tingling. She feels her symptoms are improving. She stated that she was stopped off of Plavix by her bark fitter since was felt was not needed Some of other home medication consists of Lipitor 80 mg daily at bedtime, Mirapex 1.5 mg daily at bedtime, insulin, lisinopril, modafinil, lisinopril. Of note patient was last seen the by the neuro hospitalist Dr. Acosta on 06/30/2019 and he felt possibly the patient had possible acute stroke manifesting with mild left hemisensory loss and ataxia and the MRI of the brain is negative for stroke. Please refer to his notes for further details. Some other workup in the hospital consisted of: Initial temperature is 98.1. Initial white blood cells 7.9 and slightly neutrophilic otherwise the rest of the CBC with differential is unremarkable neck Glucose is 167 otherwise the rest of the chemistry panel is unremarkable. CT of the head is reported as age-related atrophic and chronic small vessel ischemia change without acute or greater process seen at this time. I personally reviewed the CT of the head and there is no acute or subacute i schemia and there is no intracranial hemorrhage. CT angiography of the head and neck is reported Suspected stenosis of the cervical supraclinoid portion of the right ICA. Otherwise no other significant stenosis, occlusion or other acute abnormality of the major neck or the intracranial arteries. Review of Systems Review of system: The 12 point system was reviewed and apparent positive and negative per HPI. 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, IDDM type II, neuropathy bilateral feet, RLS, chronic cervical pain, osteoporosis, narcolepsy, hiatal hernia, diverticular disease, IBS, stress urine incontinence, lichens sclerosis, falls, asthma History of Any Multi-Drug Resistant Organisms: None Reported Past Surgical History: Appendectomy, Breast Surgery, Cholecystectomy, Heart Catheterization, Hernia Repair, Hysterectomy, Orthopedic Surgery Additional Past Surgical History / Comment(s): 06/24/18 Cervical fusions C4-C5/C5-C6/C6-C7 at [facility],01/2019 Lower back surgery at [facility] R breast benign lumpectomy, cardiac cath showed mild disease, umbilical hernia repair, D&C, bilateral cataract removals, EGD, colonoscopy with benign polyp, cystocele, rectocele, vuvular bx, liver bx d/t elevated LFT. Past Anesthesia/Blood Transfusion Reactions: No Reported Reaction Past Psychological History: Anxiety, Depression Smoking Status: Never smoker Past Alcohol Use History: None Reported Past Drug Use History: None Reported - Past Family History Mother Family Medical History: Hyperlipidemia, Hypertension Additional Family Medical History / Comment(s): ANEMIA Father Family Medical History: Cancer, CVA/TIA, Diabetes Mellitus Additional Family Medical History / Comment(s): CVA, kidney cancer. Medications and Allergies Home Medications Medication Instructions Recorded Confirmed Type Atorvastatin [Lipitor] 80 mg PO HS 03/21/14 05/29/21 History Pantoprazole Sodium [Protonix] 40 mg PO DAILY 03/21/14 05/29/21 History Pramipexole Di-HCl [Mirapex] 1.5 mg PO HS 03/21/14 05/29/21 History Pregabalin [Lyrica] 200 mg PO BID 03/21/14 05/29/21 History Montelukast [Singulair] 10 mg PO HS 04/11/15 05/29/21 History Albuterol Nebulized [Ventolin 2.5 mg INHALATION RT-QID PRN 06/05/17 05/29/21 History Nebulized] Mometasone/Formoterol [Dulera 200 2 puff INHALATION RT-BID PRN 06/29/19 05/29/21 History Mcg-5 Mcg Inhaler] INSULIN LISPRO (For Pump) [humaLOG 0.01 units SQ-PUMP CONTINUOUS 06/30/19 05/29/21 History (For Pump)] Lisinopril [Prinivil] 10 mg PO DAILY 03/24/20 05/29/21 History Cholestyramine (with Sugar) 4 gm PO DAILY 05/29/21 05/29/21 History [Cholestyramine Packet] Clobetasol Propionate [Temovate 1 applic TOPICAL BID 05/29/21 05/29/21 History 0.05% Cream] Dicyclomine [Bentyl] 10 mg PO QID PRN 05/29/21 05/29/21 History Ergocalciferol [Vitamin D2 (1250 1,250 mcg PO TU 05/29/21 05/29/21 History Mcg = 23678 Iu)] HYDROcodone/APAP 5-325MG [[place] 1 tab PO Q6H 05/29/21 05/29/21 History 5-325] Insulin Detemir [Levemir Flextouch 18 - 20 units SQ HS 05/29/21 05/29/21 History Pen] lisinopriL [Zestril] 10 mg PO HS PRN 05/29/21 05/29/21 History modafiniL [Provigil] 200 mg PO DAILY 05/29/21 05/29/21 History Allergies Allergy/AdvReac Type Severity Reaction Status Date / Time aspirin Allergy Swelling Verified 05/29/21 11:25 ibuprofen Allergy Swelling Verified 05/29/21 11:25 ipratropium bromide Allergy Swelling Verified 05/29/21 11:25 [From Atrovent] meperidine HCl [From Demerol] Allergy Rash/Hives Verified 05/29/21 11:25 nickel Allergy Unknown Verified 05/29/21 11:25 hydromorphone HCl AdvReac Nausea & Verified 05/29/21 11:25 [From Dilaudid] Vomiting metformin AdvReac Unknown Verified 05/29/21 11:25 morphine AdvReac Vomiting Verified 05/29/21 11:25 trazodone AdvReac Weakness Verified 05/29/21 11:25 zolpidem tartrate AdvReac Hallucinati Verified 05/29/21 11:25 [From Ambien] ons MSG AdvReac Rash/Hives Uncoded 05/29/21 09:48 Physical Examination - Vital Signs Vital Signs: Vital Signs Temp Pulse Resp BP Pulse Ox 05/29/21 12:55 76 18 149/74 99 05/29/21 09:48 98.1 F 114 H 16 166/70 94 L Intake and Output 05/28/21 05/29/21 05/29/21 22:59 06:59 14:59 Other: Weight 77.111 kg GENERAL: The patient is lying in bed and is not in acute distress. CHEST: The heart rate is regular rate rhythm. No murmurs to auscultation. No carotid bruit bilaterally. LUNG: Clear to auscultation bilaterally no wheezing noted throughout. Not labored breathing. ABDOMEN/GI: Bowel sounds present in all 4 quadrants. No tenderness to palpation throughout. NEUROLOGICAL: Higher mental function: The patient is awake, alert, oriented to self, place and time. Patient is following commands. No aphasia and no neglect. Cranial nerves: The pupils are round, equal and reactive to light and accommodation. Visual cuevas are full to confrontation throughout. Upon examining her she denies of any diplopia. Extraocular movement is intact no nystagmus is noted. Facial sensation is normal to touch throughout. The facial strength is normal throughout. Hearing is normal bilaterally to hand rub. Tongue is midline and moved [id number] without any difficulty. No dysarthria is noted. Shoulder shrug is normal bilaterally. Motor: Gait is deferred. The strength is right upper extremity is limited since has rotator cuff with brace/sling. Right lower extremity has antigravity but has pain in lower back (old according to patient). Otherwise5/5 on left. Normal tone and bulk over the right lower and left side.. Cerebellum: Normal finger to nose on left. Could not perform right upper. Sensation: Sensation is normal to touch throughout. Reflexes (right/left): 2+ throughout left. But could not assess right upper because of brace/sling and was in pain in lower. Plantars are mute bilaterally. Results - Laboratory Findings CBC and BMP: 05/29/21 10:18 05/29/21 10:18 Abnormal Lab Findings: Abnormal Labs 05/29/21 05/29/21 10:18 10:18 WBC 10.9 H Neutrophils # 9.7 H Lymphocytes # 0.6 L Glucose 167 H Assessment and Plan Assessment: Episode of transient acute dysarthria, expressive aphasia and steady walkin, diplopia for past 5 days. Probable TIA. Suspected stenosis of the cervical supraclinoid portion of the right ICA per CTA History of TIA and the possible stroke manifesting with mild left hemisensory loss and ataxia in 2019 Diabetes mellitus Diabetic neuropathy History of coronary artery disease status post cath History of cervical fusion from C4 to C7 History of lower back surgery Plan: I ordered MRI of the brain without an MRA of the head. I started the patient on the Plavix 75 mg daily. Patient was given Plavix 75 mg once by the primary team. Patient is ALLERGIC to aspirin. Continue Lipitor 80 mg daily at bedtime 2-D echo, lipid panel is ordered and is pending I ordered TSH, vitamin B12. PT, OT and HUMAN RESOURCES ANALYST are consulted Continue neuro checks Placed on cardiac monitoring Defer the rest of the medical management to the primary team For DVT prophylaxis placed on subq heparin 5K every 12 hours. The plan is discussed with patient and her nurse. Thank you for the consultation Ahsan Cardona M.D. Neuro-hospitalist Time with Patient: Greater than 30
[2021-05-29] MEDS ORDERED: INSULIN ASPART (NovoLOG) 100 UNIT/ML VIAL SQ PRN (17:43)
[2021-05-29 20:12] LABS: Glucose,Whole Blood 194 mg/dL (75-99)
[2021-05-29] MEDS: INSPUCOR MISCELLANE PRN (20:13)
[2021-05-29] MEDS: HEPARIN SODIUM,PORCINE/PF 5,000 UNIT/0.5 ML SYRINGE SQ SCH (20:16)
[2021-05-29] MEDS: ATORVASTATIN 80 MG TAB PO SCH (20:16)
[2021-05-29] MEDS: MONTELUKAST 10 MG TAB PO SCH (20:16)
[2021-05-29] MEDS: INSULIN DETEMIR (LEVEMIR) 100 UNIT/ML SYR SQ SCH (20:16)
[2021-05-29] MEDS: CLOBETASOL PROP 0.05% CR 15GM TOPICAL SCH (20:16)
[2021-05-29] MEDS: PRAMIPEXOLE 1 MG TAB PO SCH (20:17)
[2021-05-29] MEDS: PREGABALIN 100 MG CAP PO SCH (20:17)
[2021-05-30] MEDS: HYDROcodone/APAP 5-325MG 1 EACH TAB PO SCH ×4 (01:31→18:24)
[2021-05-30] MEDS: PANTOPRAZOLE 40 MG TABLET PO SCH (06:09)
[2021-05-30 07:03] LABS: Glucose,Whole Blood 140 mg/dL (75-99)
[2021-05-30] MEDS: INSPUCOR MISCELLANE PRN ×2 (07:03→18:27)
--- NOTE | 2021-05-30 07:47 | ECHOF ---
Referral Reason:TIA MEASUREMENTS -------- HEIGHT: 147.3 cm WEIGHT: 77.1 kg BP: 149/74 RVIDd: 2.3 cm (< 3.3) IVSd: 0.9 cm (0.6 - 1.1) LVIDd: 3.6 cm (3.9 - 5.3) LVPWd: 1.0 cm (0.6 - 1.1) IVSs: 1.5 cm LVIDs: 2.4 cm LVPWs: 1.5 cm LA Diam: 3.0 cm (2.7 - 3.8) LAESV Index (A-L): 14.93 ml/m Ao Diam: 2.4 cm (2.0 - 3.7) AV Cusp: 1.5 cm (1.5 - 2.6) MV EXCURSION: 11.063 mm (> 18.000) MV EF SLOPE: 25 mm/s (70 - 150) EPSS: 0.7 cm MV E Leonardo: 0.80 m/s MV DecT: 342 ms MV A Leonardo: 1.17 m/s MV E/A Ratio: 0.68 FINDINGS -------- Sinus rhythm. This was a technically adequate study. The left ventricular size is normal. Left ventricular wall thickness is normal. Overall left vent ricular systolic function is normal with, an EF between 60 - 65 %. The right ventricle is normal in size. Normal LA size by volume 22+/-6 ml/m2. The right atrium is normal in size. The aortic valve is trileaflet, and appears structurally normal. No aortic stenosis or regurgitation. There is trace mitral regurgitation. The tricuspid valve appears structurally normal. Unable to estimate RVSP due to inadequate TR jet s pectral doppler profile. Trace/mild (physiologic) pulmonic regurgitation. The aortic root size is normal. There is no pericardial effusion. CONCLUSIONS -------- 1. The left ventricular size is normal. 2. Left ventricular wall thickness is normal. 3. Overall left ventricular systolic function is normal with, an EF between 60 - 65 %. 4. There is trace mitral regurgitation. 5. Trace/mild (physiologic) pulmonic regurgitation. 6. There is no pericardial effusion. WASH OPERATOR: Annamaria Mason [facility]
[2021-05-30] MEDS: CLOBETASOL PROP 0.05% CR 15GM TOPICAL SCH ×2 (10:08→20:35)
[2021-05-30] MEDS: CLOPIDOGREL 75 MG TAB PO SCH (10:09)
[2021-05-30] MEDS: HEPARIN SODIUM,PORCINE/PF 5,000 UNIT/0.5 ML SYRINGE SQ SCH ×2 (10:09→20:35)
[2021-05-30] MEDS: PREGABALIN 100 MG CAP PO SCH ×2 (10:10→20:35)
[2021-05-30] MEDS: CHOLESTYRAMINE (WITH SUGAR) 4 GM PACKET PO SCH (10:18)
[2021-05-30 11:57] LABS: Glucose,Whole Blood 161 mg/dL (75-99)
[2021-05-30] MEDS: INSULIN LISPRO (For Pump) 100 UNIT/ML VIAL SQ-PUMP SCH (12:13)
--- NOTE | 2021-05-30 12:43 | P.PN ---
Subjective Progress Note Date: 05/30/21 The patient is seen at bedside and continues to be feeling well. Denies of any new neurological problems. Objective - Vital Signs Vital signs: Vital Signs Temp 98.2 F 05/30/21 08:00 Pulse 79 05/30/21 08:00 Resp 17 05/30/21 08:00 BP 122/78 05/30/21 08:00 Pulse Ox 93 L 05/30/21 08:00 Intake & Output 05/29/21 05/30/21 05/30/21 18:59 06:59 18:59 Intake Total 480 360 Balance 480 360 Weight 77.111 kg Intake: Oral 480 360 Other: Voiding Method Toilet # Voids 1 3 - Exam GENERAL: The patient is lying in bed and is not in acute distress. NEUROLOGICAL: Higher mental function: The patient is awake, alert, oriented to self, place and time. Patient is following commands. No aphasia and no neglect. Cranial nerves: The pupils are round, equal and reactive to light and accommodation. Visual cuevas are full to confrontation throughout. Upon examining her she denies of any diplopia. Extraocular movement is intact no n ystagmus is noted. Facial sensation is normal to touch throughout. The facial strength is normal throughout. Hearing is normal bilaterally to hand rub. Tongue is midline and moved [id number] without any difficulty. No dysarthria is noted. Shoulder shrug is normal bilaterally. Motor: Gait is deferred. The strength is right upper extremity is limited since has rotator cuff with sling. Right lower extremity has antigravity but has pain in lower back (old according to patient). Otherwise5/5 on left. Normal tone and bulk over the right lower and left side.. Cerebellum: Normal finger to nose on left. Could not perform right upper. Sensation: Sensation is normal to touch throughout. Reflexes (right/left): 2+ throughout left. But could not assess right upper because of brace/sling and was in pain in lower. Plantars are mute bilaterally. WORK-UP: TSH: 0.939 Vitamin B12: 493 CT of the head is reported as age-related atrophic and chronic small vessel ischemia change without acute or greater process seen at this time. I personally reviewed the CT of the head and there is no acute or subacute ischemia and there is no intracranial hemorrhage. CT angiography of the head and neck is reported Suspected stenosis of the cervical supraclinoid portion of the right ICA. Otherwise no other significant stenosis, occlusion or other acute abnormality of the major neck or the intracranial arteries. 2D echo: Left ventircular whall thickness is normal. EF 60-65%. Normal LA size by volume. - Labs CBC & Chem 7: 05/29/21 10:18 05/29/21 10:18 Labs: Abnormal Lab Results - Last 24 Hours (Table) 05/29/21 05/29/21 05/30/21 Range/Units 14:12 20:11 07:01 POC Glucose (mg/dL) 194 H 140 H (75-99) mg/dL Ur Specific [place] >1.050 H (1.001-1.035) Urine Protein Trace H (Negative) 05/30/21 Range/Units 11:54 POC Glucose (mg/dL) 161 H (75-99) mg/dL Ur Specific [place] (1.001-1.035) Urine Protein (Negative) Assessment and Plan Assessment: Episode of transient acute dysarthria, expressive aphasia and steady walkin, diplopia for past 5 days. Probable TIA. Suspected stenosis of the cervical supraclinoid portion of the right ICA per CTA History of TIA and the possible stroke manifesting with mild left hemisensory loss and ataxia in 2019 Diabetes mellitus Diabetic neuropathy History of coronary artery disease status post cath History of cervical fusion from C4 to C7 History of lower back surgery Plan: MRI of the brain without an MRA of the head: pending. I will review images with radiology team to assess whether patient truly has supraclinoid ICA stenosis. Continue Plavix 75 mg daily. Patient is ALLERGIC to aspirin. Continue Lipitor 80 mg daily at bedtime Lipid panel is pending PT, OT and TECHNICAL SERVICES MANAGER are consulted Continue neuro checks Placed on cardiac monitoring Defer the rest of the medical management to the primary team For DVT prophylaxis placed on subq heparin 5000 every 12 hours. The plan is discussed with patient and primary team (N.P.). Ahsan Cardona M.D. Neuro-hospitalist Time with Patient: Less than 30
[2021-05-30 14:45] VITALS: BMI 35.5
[2021-05-30 15:15] LABS: HDL Cholesterol 35.4 mg/dL (40.00-60.00)
--- NOTE | 2021-05-30 15:29 | P.PN ---
Subjective Progress Note Date: 05/30/21 Patient is a 5-year-old female came in with compensative nausea vomiting. Although patient did complain the patient was having some speech abnormalities blurry vision and some episodes of confusion which started on Saturday and patient believed they will get better and as per the patient they did get bet ter, patient had history of TIAs in the past. Patient was ALLERGIC to aspirin and patient was on Plavix for some time after that Plavix was discontinued and she was told she doesn't need it anymore. Patient does have history of diabetes mellitus hypertension denied any history of smoking although her smokes. Patient had some unstable gait which as per the patient and is chronic, patient had ataxia. 05/30/2021 Patient evaluated today sitting up in the chair. She feels her slurred speech is improving and she is able to find her words easier. Speech therapy re-eval today shows improvement and felt slurred speech is resolved at this time. Currently denying pain. She is pending MRI / MRA today. No acute events over night. Physical therapy eval completed today and felt patient may benefit from subacute rehab on discharge. Cholesterol panel elevated triglycerides are 416, total cholesterol 275, HDL 35, LDL was unable to be performed. B12 within normal limits, TSH low normal at 0.939. Blood glucose in the 160s. Patient using own insulin pump. Vitals stable. Review of Systems Constitutional: Denied any fatigue denied any fever. Cardio vascular: denied any chest pain, palpitations Gastrointestinal: denied any nausea, vomiting, diarrhea Pulmonary: Denied any shortness of breath cough Neurologic denied any new focal deficits, feels speech is improving All inpatient medications were reviewed and appropriate changes in these medications as dictated in the interval history and assessment and plan. PHYSICAL EXAMINATION: GENERAL: The patient is alert and oriented x3, not in any acute distress. Well developed, well nourished. HEENT: Pupils are round and equally reacting to light. EOMI. No scleral icterus. No conjunctival pallor. Normocephalic, atraumatic. No pharyngeal erythema. No thyromegaly. CARDIOVASCULAR: S1 and S2 present. No murmurs, rubs, or gallops. PULMONARY: Chest is clear to auscultation, no wheezing or crackles. ABDOMEN: Soft, nontender, nondistended, normoactive bowel sounds. No palpable organomegaly. MUSCULOSKELETAL: No joint swelling or deformity. Post surgical right shoulder with arm in sling. EXTREMITIES: No cyanosis, clubbing, or pedal edema. NEUROLOGICAL: There is dysdiadochokinesis and possible aphasia, however speech i s improving. SKIN: No rashes. Assessment and plan 1 possibility of a transient ischemic attack/cerebrovascular accident: pending MRI /MRA follow up. Patient is on plavix/lipitor. She has an allergy to aspirin. -Coronary artery disease s/p cath which reports mild disease -2D echo reviewed showing EF 60-65% with trace MR -Type 2 diabetes mellitus patient will be resumed on insulin pump and long-a cting insulin -Gastroesophageal reflux disease -Hyperlipidemia with elevated triglycerides, total cholesterol -Hypertension -patient had a recent rotator cuff surgery for which patient has a sling -Peripheral neuropathy -Depression -History asthma not in acute exacerbation DVT prophylaxis: Lovenox GI prophylaxis The impression and plan of care has been dictated by Lynnette Whitaker, Nurse Practitioner as directed. Dr. Michael MD I have performed a history and physical examination and medical decision making of this patient, discussed the same with the dictator, and agree with the dictators assessment and plan as written, documented as a scribe. Based on total visit time, I have performed more than 50% of this visit. Objective - Vital Signs Vital signs: Vital Signs Temp 97.9 F 05/30/21 07:58 Pulse 76 05/30/21 07:58 Resp 19 05/30/21 07:58 BP 113/72 05/30/21 07:58 Pulse Ox 94 L 05/30/21 07:58 Intake & Output 05/29/21 05/30/21 05/30/21 18:59 06:59 18:59 Intake Total 480 Balance 480 Weight 77.111 kg Intake: Oral 480 Other: Voiding Method Toilet # Voids 1 - Labs CBC & Chem 7: 05/29/21 10:18 05/29/21 10:18 Labs: Abnormal Lab Results - Last 24 Hours (Table) 05/29/21 05/29/21 05/29/21 Range/Units 10:18 10:18 14:12 WBC 10.9 H (3.8-10.6) k/uL Neutrophils # 9.7 H (1.3-7.7) k/uL Lymphocytes # 0.6 L (1.0-4.8) k/uL Glucose 167 H (74-99) mg/dL POC Glucose (mg/dL) (75-99) mg/dL Ur Specific [place] >1.050 H (1.001-1.035) Urine Protein Trace H (Negative) 05/29/21 05/30/21 Range/Units 20:11 07:01 WBC (3.8-10.6) k/uL Neutrophils # (1.3-7.7) k/uL Lymphocytes # (1.0-4.8) k/uL Glucose (74-99) mg/dL POC Glucose (mg/dL) 194 H 140 H (75-99) mg/dL Ur Specific [place] (1.001-1.035) Urine Protein (Negative) Assessment and Plan Time with Patient: Less than 30
[2021-05-30 15:31] LABS: Chol/HDL Ratio 7.77 Ratio
[2021-05-30 16:45] LABS: Glucose,Whole Blood 228 mg/dL (75-99)
--- NOTE | 2021-05-30 17:35 | MR ---
EXAMINATION TYPE: MR brain wo con DATE OF EXAM: 05/30/2021 COMPARISON: 06/29/2019 HISTORY: stroke. Diplopia, dysarthria Multiplanar and multiecho imaging of the brain without contrast. There is cerebral cortical atrophy. There is no mass effect nor midline shift. There is no sign of in tracranial hemorrhage. Diffusion images show no sign of an acute infarct. There is some linear increa sed signal in the periventricular white matter. Brainstem is intact. Cerebellum is intact. There is s light thinning of the corpus callosum. There is no evidence of a sellar mass. There is no evidence of orbital mass. IMPRESSION: Cerebral atrophy. Mild periventricular white matter changes consistent with atrophy. No evidence of a cute infarct. No acute intracranial abnormality. No change compared to old exam.
--- NOTE | 2021-05-30 17:52 | MR ---
EXAMINATION TYPE: MR angio head wo con DATE OF EXAM: 05/30/2021 COMPARISON: 03/13/2016 HISTORY: stroke. Diplopia, dysarthria MR angiographic images were obtained of the intracerebral arterial circulation. There is arterial flow in the anterior middle and posterior cerebral arteries. There is diminutive A1 segment of the right anterior cerebral artery. There is arterial flow in the vertebral basilar arter y system. There is no mass effect. No evidence of intracranial aneurysm or neovascularity. There is arterial fl ow in both vertebral arteries. There is arterial flow in both distal internal carotid arteries. IMPRESSION: There is diminutive A1 segment of the right anterior cerebral artery and patency of the anterior comm unicating artery. Distal anterior cerebral arteries appear normal. There is probably some filling of the right anterior cerebral artery through the anterior communicating artery from the left side. A1 segment of the right anterior cerebral artery appears smaller than previous exam and is consistent with some acquired stenosis
[2021-05-30 20:19] LABS: Glucose,Whole Blood 132 mg/dL (75-99)
[2021-05-30] MEDS: ATORVASTATIN 80 MG TAB PO SCH (20:35)
[2021-05-30] MEDS: MONTELUKAST 10 MG TAB PO SCH (20:35)
[2021-05-30] MEDS: PRAMIPEXOLE 1 MG TAB PO SCH (20:36)
[2021-05-30] MEDS: INSULIN DETEMIR (LEVEMIR) 100 UNIT/ML SYR SQ SCH (21:58)
[2021-05-31] MEDS: HYDROcodone/APAP 5-325MG 1 EACH TAB PO SCH ×3 (00:37→13:14)
[2021-05-31] MEDS: PANTOPRAZOLE 40 MG TABLET PO SCH (06:10)
[2021-05-31 06:59] LABS: Glucose,Whole Blood 148 mg/dL (75-99)
[2021-05-31] MEDS: INSPUCOR MISCELLANE PRN ×2 (07:02→13:15)
[2021-05-31] MEDS: CLOPIDOGREL 75 MG TAB PO SCH (09:33)
[2021-05-31] MEDS: CHOLESTYRAMINE (WITH SUGAR) 4 GM PACKET PO SCH (09:34)
[2021-05-31] MEDS: CLOBETASOL PROP 0.05% CR 15GM TOPICAL SCH (09:34)
[2021-05-31] MEDS: PREGABALIN 100 MG CAP PO SCH (09:34)
[2021-05-31] MEDS: HEPARIN SODIUM,PORCINE/PF 5,000 UNIT/0.5 ML SYRINGE SQ SCH (09:34)
[2021-05-31 11:41] VITALS: BP 126/75; PULSE 94; RESP 18; TEMP 98.5
--- NOTE | 2021-05-31 14:46 | P.PN ---
Subjective Progress Note Date: 05/31/21 The patient is seen at bedside and feels she continues to be doing well. Denies of any new neurological issues. Objective - Vital Signs Vital signs: Vital Signs Temp 98.5 F 05/31/21 11:20 Pulse 94 05/31/21 11:20 Resp 18 05/31/21 11:20 BP 126/75 05/31/21 11:20 Pulse Ox 94 L 05/31/21 11:20 Intake & Output 05/30/21 05/31/21 05/31/21 18:59 06:59 18:59 Intake Total 840 240 118 Balance 840 240 118 Weight 77.111 kg Intake: Oral 840 240 118 Other: Voiding Method Toilet Toilet # Voids 1 2 2 # Bowel Movements 0 - Exam GENERAL: The patient is lying in bed and is not in acute distress. NEUROLOGICAL: Higher mental function: The patient is awake, alert, oriented to self, place and time. Patient is following commands. No aphasia and no neglect. Cranial nerves: The pupils are round, equal and reactive to light and acco mmodation. Visual cuevas are full to confrontation throughout. Upon examining her she denies of any diplopia. Extraocular movement is intact no nystagmus is noted. Facial sensation is normal to touch throughout. The facial strength is normal throughout. Hearing is normal bilaterally to hand rub. Tongue is midline and moved [id number] without any difficulty. No dysarthria is noted. Shoulder shrug is normal bilaterally. Motor: Gait is deferred. The strength is right upper extremity is limited since has rotator cuff with sling. Right lower extremity has antigravity but has pain in lower back (old according to patient). Otherwise5/5 on left. Normal tone and bulk over the right lower and left side.. Cerebellum: Normal finger to nose on left. Could not perform right upper. Sensation: Sensation is normal to touch throughout. Reflexes (right/left): 2+ throughout left. But could not assess right upper because of brace/sling and was in pain in lower. Plantars are mute bilaterally. WORK-UP: TSH: 0.939 Vitamin B12: 493 Lipid panel: T, Cholestrol 275, LDL [address] of the head is reported as age-related atrophic and chronic small vessel ischemia change without acute or greater process seen at this time. I personally reviewed the CT of the head and there is no acute or subacute ischemia and there is no intracranial hemorrhage. CT angiography of the head and neck is reported Suspected stenosis of the cervical supraclinoid portion of the right ICA. Otherwise no other significant stenosis, occlusion or other acute abnormality of the major neck or the intracranial arteries. MRI Brain w/o: It is reported as cerebral atrophy. Mild periventricular white matter changes consistent with atrophy. No evidence of acute infarct. No acute intracranial abnormality. No change compared to old exam. I personally reviewed it and agree there is no acute or subacute ischemic stroke. MRA head is reported as diminutive A1 segment of the right anterior cerebral artery and patency of the anterior communicating artery. Distal anterior cerebral arteries appear normal. There is probably some filling of the right anterior cerebral artery through the anterior communicating artery from the left side. A1 segment of the right anterior cerebral artery appears smaller than previous exam and is is consistent with some acquired stenosis. 2D echo: Left ventircular whall thickness is normal. EF 60-65%. Normal LA size by volume. - Labs CBC & Chem 7: 05/29/21 10:18 05/29/21 10:18 Labs: Abnormal Lab Results - Last 24 Hours (Table) 05/29/21 05/30/21 05/30/21 Range/Units 10:18 16:41 20:18 POC Glucose (mg/dL) 228 H 132 H (75-99) mg/dL Triglycerides 416.00 H (0.00-149.00) mg/dL Cholesterol 275.00 H (0.00-200.00) mg/dL LDL Cholesterol Direct 175.00 H (0.00-129.00) mg/dL HDL Cholesterol 35.40 L (40.00-60.00) mg/dL 05/31/21 Range/Units 06:57 POC Glucose (mg/dL) 148 H (75-99) mg/dL Triglycerides (0.00-149.00) mg/dL Cholesterol (0.00-200.00) mg/dL LDL Cholesterol Direct (0.00-129.00) mg/dL HDL Cholesterol (40.00-60.00) mg/dL Assessment and Plan Assessment: Episode of transient acute dysarthria, expressive aphasia and steady walkin, diplopia for past 5 days. Probable TIA. Suspected stenosis of the cervical supraclinoid portion of the right ICA History of TIA and the possible stroke manifesting with mild left hemisensory loss and ataxia in 2020 Diabetes mellitus Diabetic neuropathy History of coronary artery disease status post cath History of cervical fusion from C4 to C7 History of lower back surgery Plan: I reviewed images with Dr. Wise (reading radiologist) and he felt it seems suspected right supraclinoid cervical right ICA stenosis. He also felt HAILY on right seem small but no occlusion and seem more acquired. From neurological perspective no intervention is needed and patient is clinically stable. I will have her follow-up with Dr. Ghosh (neuro-interventionalist) as outpatient. Continue Plavix 75 mg daily. Patient is ALLERGIC to aspirin. Continue Lipitor 80 mg daily at bedtime PT, OT and STRUCTURAL ENGINEERING PROJECT MANAGER are consulted Continue neuro checks Placed on cardiac monitoring Defer the rest of the medical management to the primary team For DVT prophylaxis placed on subq heparin 5000 every 12 hours. Recommend the patient to follow-up with neurologist within 1-2 weeks as outpat ient. Patient is stable for discharge from neurological perspective. The plan is discussed with patient and primary team (N.P.). Ahsan Cardona M.D. Neuro-hospitalist Time with Patient: Less than 30
--- NOTE | 2021-06-01 21:59 | P.DS ---
Providers Date of admission: 05/29/21 12:55 Attending physician: Oksana Rodriguez Consults: 05/29/21 12:55 Consult Physician Routine Consulting Provider: Ahsan Cardona Consult Reason/Comments: CVA Do you want consulting provider notified?: Yes Primary care physician: Chris Caicedo Hospital Course: Final Diagnosis 1 Probable transient ischemic attack with symptoms of dysarthria, expressive aphasia, unsteady gate, diplopia for the last 5 days -Suspected stenosis of right ICA -Coronary artery disease s/p cath which reports mild disease -2D echo reviewed showing EF 60-65% with trace MR -Type 2 diabetes mellitus patient will be resumed on insulin pump and long- acting insulin -Gastroesophageal reflux disease -Hyperlipidemia with elevated triglycerides, total cholesterol -Hypertension -patient had a recent rotator cuff surgery for which patient has a sling -Peripheral neuropathy -Depression -History asthma not in acute exacerbation Discharge Disposition Patient is stable for discharge home. Follow up include neurology and interventional neurology. Patient is discharged on plavix 75 mg po daily and lipitor 80 mg po daily, aspirin is not prescribed due to ALLERGY. Hospital Course This is a pleasant 75 year old female who presents to the hospital for compensative nausea vomiting. Although patient did complain of some speech abnormalities blurry vision and some episodes of confusion which started on Saturday. There was also unsteady gaited noted with some ataxia however patient states is chronic and is walking with a cane. Patient follows with Dr. Chris Caicedo in the primary care setting. Chronic medical conditions include coronary artery disease, diabetes mellitus which she uses an insulin pump, GERD, hypertension, hyperlipidemia, recent right rotator cuff surgery, peripheral neuropathy, depression, asthma. Patient also has history of TIAs in the past. Patient is ALLERGIC to aspirin and was on Plavix for some time after that Plavix was discontinued and she was told she doesn't need it anymore. Denies history of smoking, but her does smoke. Patient was admitted to the hospital for further neurological workup with consult placed to neurology. Diagnostics this admission include; Chest xray showing no acute abnormalities. CT of the head is reported as age-related atrophic and chronic small vessel ischemia change without acute or greater process seen at this time. CT angiography of the head and neck is reported Suspected stenosis of the cervical supraclinoid portion of the right ICA. Otherwise no other significant stenosis, occlusion or other acute abnormality of the major neck or the intracranial arteries. MRI Brain w/o: It is reported as cerebral atrophy. Mild periventricular white matter changes consistent with atrophy. No evidence of acute infarct. No acute intracranial abnormality. No change compared to old exam. MRA head is reported as diminutive A1 segment of the right anterior cerebral artery and patency of the anterior communicating artery. Distal anterior cerebral arteries appear normal. There is probably some filling of the right anterior cerebral artery through the anterior communicating artery from the left side. A1 segment of the right anterior cerebral artery appears smaller than previous exam and is is consistent with some acquired stenosis. 2D echo: Left ventircular whall thickness is normal. EF 60-65%. Normal LA size by volume. Cholesterol panel elevated triglycerides are 416, total cholesterol 275, HDL 35, LDL was unable to be performed. B12 within normal limits, TSH low normal at 0.939. Blood glucose in the 160s. Urine negative. Patient has been afebrile, heart rate 90s normal sinus rhythm no evidence for arrythmias, blood pressure 120s over 60s. Patient underwent evaluation by physical therapy who recommended subacute rehab vs. home with homecare, patient wanted to discharge home. 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 Normal diet and at time of assessment slurred speech/dysarthria has resolved. 05/31/2021 Patient was evaluated today sitting up in the chair. Neurology has cleared patient for discharge and recommends to follow up with neurology as well as interventional neurology on discharge. Symptoms have improved, patient feels her speech is no longer slurred and she is able to remember things better now. Currently denying any headache, dizziness, lightheadedness, vision changes. Denies chest pain, shortness of breath. Denies nausea, vomiting, diarrhea. Continues with sling to right arm. Insulin pump in place. She is alert x 3, lungs clear, s1 s2 auscultated. No evidence for dysarthria currently. Patient is aware of follow ups needed. Please see medication reconciliation for a list of current medication. Thank you for allowing us to participate in the care of this patient. The impression and plan of care has been dictated by Lynnette Whitaker, Nurse Practitioner as directed. Dr. Michael MD I have performed a history and physical examination and medical decision making of this patient, discussed the same with the dictator, and agree with the dictators assessment and plan as written, documented as a scribe. Based on total visit time, I have performed more than 50% of this visit. Patient Condition at Discharge: Stable Plan - Discharge Summary Discharge Rx Participant: No New Discharge Prescriptions: New Clopidogrel [Plavix] 75 mg PO DAILY #30 tab Continue Pregabalin [Lyrica] 200 mg PO BID Pramipexole Di-HCl [Mirapex] 1.5 mg PO HS Pantoprazole Sodium [Protonix] 40 mg PO DAILY Atorvastatin [Lipitor] 80 mg PO HS Montelukast [Singulair] 10 mg PO HS Albuterol Nebulized [Ventolin Nebulized] 2.5 mg INHALATION RT-QID PRN PRN Reason: Shortness Of Breath Mometasone/Formoterol [Dulera 200 Mcg-5 Mcg Inhaler] 2 puff INHALATION RT-BID PRN PRN Reason: Shortness Of Breath INSULIN LISPRO (For Pump) [humaLOG (For Pump)] 0.01 units SQ-PUMP CONTINUOUS Lisinopril [Prinivil] 10 mg PO DAILY Insulin Detemir [Levemir Flextouch Pen] 18 - 20 units SQ HS Cholestyramine (with Sugar) [Cholestyramine Packet] 4 gm PO DAILY Ergocalciferol [Vitamin D2 (1250 Mcg = 58562 Iu)] 1,250 mcg PO TU Clobetasol Propionate [Temovate 0.05% Cream] 1 applic TOPICAL BID Dicyclomine [Bentyl] 10 mg PO QID PRN PRN Reason: IBS HYDROcodone/APAP 5-325MG [[place] 5-325] 1 tab PO Q6H modafiniL [Provigil] 200 mg PO DAILY Discontinued lisinopriL [Zestril] 10 mg PO HS PRN PRN Reason: High BP Discharge Medication List Atorvastatin [Lipitor] 80 mg PO HS 03/21/14 [History] Pantoprazole Sodium [Protonix] 40 mg PO DAILY 03/21/14 [History] Pramipexole Di-HCl [Mirapex] 1.5 mg PO HS 03/21/14 [History] Pregabalin [Lyrica] 200 mg PO BID 03/21/14 [History] Montelukast [Singulair] 10 mg PO HS 04/11/15 [History] Albuterol Nebulized [Ventolin Nebulized] 2.5 mg INHALATION RT-QID PRN 06/05/17 [History] Mometasone/Formoterol [Dulera 200 Mcg-5 Mcg Inhaler] 2 puff INHALATION RT-BID PRN 06/29/19 [History] INSULIN LISPRO (For Pump) [humaLOG (For Pump)] 0.01 units SQ-PUMP CONTINUOUS 06/30/19 [History] Lisinopril [Prinivil] 10 mg PO DAILY 03/24/20 [History] Cholestyramine (with Sugar) [Cholestyramine Packet] 4 gm PO DAILY 05/29/21 [History] Clobetasol Propionate [Temovate 0.05% Cream] 1 applic TOPICAL BID 05/29/21 [History] Dicyclomine [Bentyl] 10 mg PO QID PRN 05/29/21 [History] Ergocalciferol [Vitamin D2 (1250 Mcg = 89373 Iu)] 1,250 mcg PO TU 05/29/21 [History] HYDROcodone/APAP 5-325MG [[place] 5-325] 1 tab PO Q6H 05/29/21 [History] Insulin Detemir [Levemir Flextouch Pen] 18 - 20 units SQ HS 05/29/21 [History] modafiniL [Provigil] 200 mg PO DAILY 05/29/21 [History] Clopidogrel [Plavix] 75 mg PO DAILY #30 tab 05/31/21 [Rx] Follow up Appointment(s)/Referral(s): Twan Ghosh MD [STAFF PHYSICIAN] - 2 Weeks Angel Pyle DO [STAFF PHYSICIAN] - As Needed Villa Alonso DO [STAFF PHYSICIAN] - 2 Weeks Chris Caicedo DO [Primary Care Provider] - 1-2 days (please call office for appt. time, office closed today for staff meeting) Patient Instructions/Handouts: Transient Ischemic Attack (DC), Heart Healthy Diet (DC), Self Care Measures After a Stroke (DC) Activity/Diet/Wound Care/Special Instructions: Patient has an appointment with orthopedic surgeon on Saturday for follow up right rotator cuff repair. Patient will follow up with neurology outpatient as well as Dr Ghosh with interventional neurology. Recommend diet modification. Recommendations including lean cuts of meat, low fat options, fruits, vegetables. Discharge Disposition: HOME WITH HOME HEALTH SERVICES
== END 2021-05-31 13:28 | disposition home health service (06) | DRG 69 ==
LOC: EC 09:45 → 3SCARD 12:55
PROVIDERS: ADMIT Internal Medicine; ATTEND Internal Medicine
DX: G45.9 Transient cerebral ischemic attack, unspecified (principal); R47.01 Aphasia; R47.1 Dysarthria and anarthria; E11.42 Type 2 diabetes mellitus with diabetic polyneuropathy; E78.1 Pure hyperglyceridemia; E78.5 Hyperlipidemia, unspecified; F32.A Depression, unspecified; F41.9 Anxiety disorder, unspecified; G25.81 Restless legs syndrome; I10 Essential (primary) hypertension; H53.2 Diplopia; I69.393 Ataxia following cerebral infarction; K58.9 Irritable bowel syndrome, unspecified; R29.6 Repeated falls; I37.1 Nonrheumatic pulmonary valve insufficiency; M19.90 Unspecified osteoarthritis, unspecified site; I69.398 Other sequelae of cerebral infarction; R26.81 Unsteadiness on feet; G31.89 Other specified degenerative diseases of nervous system; I25.10 Atherosclerotic heart disease of native coronary artery without angina pectoris; I65.29 Occlusion and stenosis of unspecified carotid artery; J45.909 Unspecified asthma, uncomplicated; K21.9 Gastro-esophageal reflux disease without esophagitis; M81.0 Age-related osteoporosis without current pathological fracture; W19.XXXA Unspecified fall, initial encounter; Z77.22 Contact with and (suspected) exposure to environmental tobacco smoke (acute) (chronic); Z79.02 Long term (current) use of antithrombotics/antiplatelets; Z79.4 Long term (current) use of insulin; Z79.51 Long term (current) use of inhaled steroids; Z79.899 Other long term (current) drug therapy; Z80.51 Family history of malignant neoplasm of kidney; Z82.3 Family history of stroke; Z82.49 Family history of ischemic heart disease and other diseases of the circulatory system; Z83.3 Family history of diabetes mellitus; Z88.6 Allergy status to analgesic agent; Z90.710 Acquired absence of both cervix and uterus; Z96.41 Presence of insulin pump (external) (internal); Z98.1 Arthrodesis status; Z88.8 Allergy status to other drugs, medicaments and biological substances; Z87.19 Personal history of other diseases of the digestive system; Z98.42 Cataract extraction status, left eye; Z98.41 Cataract extraction status, right eye; Z91.81 History of falling; Z87.01 Personal history of pneumonia (recurrent); Z88.5 Allergy status to narcotic agent
CPT/HCPCS: 36415; 70450; 70496; 70498; 70544; 70551; 71046; 80053; 80061; 81003; 82607; 83721; 84443; 84484; 85025; 85610; 85730; 93005; 93306; 99285

== ENCOUNTER → 2021-08-31 | Outpatient (CLI) | payer MEDICARE, OTHER ==
--- NOTE | 2021-08-31 15:49 | XR ---
EXAMINATION TYPE: XR shoulder complete RT DATE OF EXAM: 08/31/2021 COMPARISON: NONE HISTORY: Pain TECHNIQUE: Three views are submitted. FINDINGS: The osseous structures are intact. There is no acute fracture or dislocation. The AC joint arthropa thy and diffuse osteopenia. Incidental note made of surgical change involving the cervical spine.. IMPRESSION: 1. AC joint arthropathy with no definite acute fracture..
== END | disposition home or self-care (01) ==
LOC: RADXRMAIN 14:33
PROVIDERS: ATTEND Family Medicine
DX: M12.9 Arthropathy, unspecified (principal)

== ENCOUNTER → 2021-09-26 | Outpatient (CLI) | payer MEDICARE, OTHER ==
--- NOTE | 2021-09-26 17:41 | CA ---
Transthoracic Echo Report Name: Saira Juarez Age: 76 Gender: F : 1945 Exam Date: 09/26/2021 11:24 Exam Location: [facility] Ht (in): 58 Wt (lb): 160 Ordering Physician: Chris Caicedo DO Attending/Referring Phys: Bulk Truck Driver Tova Kraft RDCS Procedure CPT: Indications: r55 Cardiac Hx: Technical Quality: Fair Contrast 1: Total Dose (mL): Contrast 2: Total Dose (mL): MEASUREMENTS (Male / Female) Normal Values 2D ECHO LV Diastolic Diameter PLAX 3.4 cm 4.2 - 5.9 / 3.9 - 5.3 cm LV Systolic Diameter PLAX 2.4 cm IVS Diastolic Thickness 1.1 cm 0.6 - 1.0 / 0.6 - 0.9 cm LVPW Diastolic Thickness 1.0 cm 0.6 - 1.0 / 0.6 - 0.9 cm LV Relative Wall Thickness 0.6 RV Internal Dim ED PLAX 2.7 cm LA Volume 30.6 cm??? 18 - 58 / 22 - 52 cm??? M-MODE Aortic Root Diameter MM 2.7 cm LA Systolic Diameter MM 3.8 cm LA Ao Ratio MM 1.4 AV Cusp Separation MM 1.4 cm DOPPLER AV Peak Velocity 182.1 cm/s AV Peak Gradient 13.3 mmHg LVOT Peak Velocity 156.3 cm/s LVOT Peak Gradient 9.8 mmHg MV Area PHT 3.5 cm??? Mitral E Point Velocity 101.5 cm/s Mitral A Point Velocity 123.6 cm/s Mitral E to A Ratio 0.8 MV Deceleration Time 215.8 ms MV E' Velocity 6.9 cm/s Mitral E to MV E' Ratio 14.6 TR Peak Velocity 246.0 cm/s TR Peak Gradient 24.2 mmHg Right Ventricular Systolic Press 28.2 mmHg FINDINGS Left Ventricle Mildly increased left ventricular wall thickness. Normal left ventricular systolic function with no obvious regional wall motion abnormalities. Left ventricular ejection fraction is estimated at 55-60 %. Right Ventricle Normal right ventricular size. Right ventricular systolic pressure within normal limits. Right Atrium Normal right atrial size. Left Atrium Normal left atrial size. No evidence for an atrial septal defect. Mitral Valve Structurally normal mitral valve. Mild mitral regurgitation. Aortic Valve No aortic valve stenosis or regurgitation. Tricuspid Valve Structurally normal tricuspid valve. Mild tricuspid regurgitation. Pulmonic Valve Trace pulmonic regurgitation. Pericardium No pericardial effusion. Aorta Normal size aortic root and proximal ascending aorta. CONCLUSIONS Normal LV systolic function Previewed by: Dr. Blaine Camargo MD (Electronically Signed) Final Date: 26 September 2021 17:41
== END | disposition home or self-care (01) ==
LOC: RADECHMAIN 11:13
PROVIDERS: ATTEND Family Medicine
DX: R55 Syncope and collapse (principal); I08.1 Rheumatic disorders of both mitral and tricuspid valves
CPT/HCPCS: 93270; 93306

== ENCOUNTER → 2021-10-24 | Outpatient (CLI) | payer MEDICARE, OTHER ==
--- NOTE | 2021-10-26 21:15 | US ---
EXAMINATION TYPE: US carotid duplex BILAT DATE OF EXAM: 10/25/2021 COMPARISON: CLINICAL HISTORY: R42 DIZZINESS AND GIDDINESS. TECHNIQUE: Carotid duplex ultrasound examination. Indirect Doppler criteria was utilized. FINDINGS: EXAM MEASUREMENTS: RIGHT: Peak Systolic Velocity (PSV) cm/sec ----- Right CCA: 68.8 ----- Right ICA: 72.1 ----- Right ECA: 99.6 ICA/CCA ratio: 1.0 RIGHT: End Diastole cm/sec ----- Right CCA: 14.9 ----- Right ICA: 20.6 ----- Right ECA: 19.3 LEFT: Peak Systolic Velocity (PSV) cm/sec ----- Left CCA: 72.1 ----- Left ICA: 94.1 ----- Left ECA: 44.7 ICA/CCA ratio: 1.3 LEFT: End Diastole cm/sec ----- Left CCA: 17.1 ----- Left ICA: 35.8 ----- Left ECA: 0.0 VERTEBRALS (direction of flow): Right Vertebral: Antegrade Left Vertebral: Antegrade Rhythm: Normal LOCK MASTER NOTES: Plaque seen left bulb. No elevated velocities or significant stenosis. Left and right side intimal thickening is present. IMPRESSION: Mild plaquing left carotid bulb. No significant flow-limiting stenosis. Criteria for Assigning % of Stenosis / Diameter reduction (Estimation based on the indirect measurements of the internal carotid artery velocities (ICA PSV). 1. Normal (no stenosis)=ICA PSV < 125 cm/s: ratio < 2.0: ICA EDV<40 cm/s. 2. Less than 50% stenosis=ICA PSV < 125 cm/s: ratio < 2.0: ICA EDV<40 cm/s. 3. 50 to 69% stenosis=ICA PSV of 125 to 230 cm/s: ration 2.0 ? 4.0: ICA EDV 40-100 cm/s. 4. Greater than 70% stenosis to near occlusion= ICA PSV > 230 cm/s: ratio > 4.0: ICA EDV > 100 cm/s. 5. Near occlusion= ICA PSV velocities may be low or undetectable: variable ratio and ICA EDV. 6. Total occlusion=unable to detect flow.
== END | disposition home or self-care (01) ==
LOC: RADUSWWP 21:11
PROVIDERS: ATTEND Family Medicine
DX: I65.22 Occlusion and stenosis of left carotid artery (principal)
CPT/HCPCS: 93880

== ENCOUNTER → 2021-11-03 | Outpatient (CLI) | payer MEDICARE, OTHER ==
--- NOTE | 2021-11-04 04:22 | MR ---
EXAMINATION TYPE: MR brain wo/w con DATE OF EXAM: 11/03/2021 COMPARISON: 05/30/2021 HISTORY: Falling, scrambled speech, seizure, to be compared to prior brain MRI. CONTRAST: Standard multiplanar, multisequence MRI departmental protocol images were obtained without contrast a nd with 7 mL intravenous Gadavist gadolinium contrast. There is some diffuse cerebral cortical atrophy. Diffusion images show no sign of an acute infarct. T here is mild enlargement of the ventricles. There is no mass effect nor midline shift. No sign of int racranial hemorrhage. There is thinning of the corpus callosum. There is some mild linear increased s ignal in the white matter adjacent to the lateral ventricles. Brainstem is intact. Cerebellum is inta ct. Sella turcica appears normal. No evidence of orbital mass. The contrast images show slight increased meningeal enhancement. No significant thickening.. There is normal enhancement of the venous sinuses. IMPRESSION: There is some hydrocephalus and cerebral atrophy. There is slight increased meningeal enhancement of uncertain significance. The brain appears unchanged compared to the noncontrast previous exam.
== END | disposition home or self-care (01) ==
LOC: RADMRIMAIN 19:16
PROVIDERS: ATTEND Family Medicine
DX: G31.9 Degenerative disease of nervous system, unspecified (principal); R26.89 Other abnormalities of gait and mobility; R93.0 Abnormal findings on diagnostic imaging of skull and head, not elsewhere classified; R42 Dizziness and giddiness
CPT/HCPCS: 70553; A9585

== ENCOUNTER → 2022-05-09 | Outpatient (CLI) | payer MEDICARE, OTHER ==
--- NOTE | 2022-05-10 19:05 | MM ---
Reason for Exam: Screening (asymptomatic). Last mammogram was performed 1 year(s) and 1 month(s) ago. Patient History: Menarche at age 19. First Full-Term at age 20. Hysterectomy at age 42. Postmenopausal. Patient has history of breast feeding. Previous Atypical Ductal Hyperplasia at age 63. Patient used Estrogen for 10 years. 04/01/2020, Benign Core Biopsy on the right side. 02/23/2015, Benign Core Biopsy on the right side. 06/07/2009, Benign Excisional Biopsy on the right side. 05/31/2009, High risk Core Biopsy on the right side. Maternal grandmother had breast cancer, age 56. Sister had breast cancer, age 37. Risk Values: Pamela 5 year model risk: 8.6%. NCI Lifetime model risk: 18.6%. Prior Study Comparison: 04/01/2020 Right Diagnostic Mammogram, [facility]. 09/30/2020 Right Diagnostic Mammogram, [facility]. 04/07/2021 Bilateral Screening Mammogram, [facility]. Tissue Density: There are scattered fibroglandular densities. Findings: Analyzed By CAD. Chronic nodularity on the right in bilateral areas of asymmetric density remain unchanged. 2 microclips in the right breast from prior biopsies. There is no suspicious group of microcalcifications or new suspicious mass in either breast. Overall Assessment: Benign, BI-RAD 2 Management: Screening Mammogram of both breasts in 1 year. 1. Note that per NCCN guidelines, a five-year risk assessment greater than 1.67% is used to assess eligibility for a risk reducing agent. 2. Patient should continue monthly self breast exams. 3. This exam should not preclude additional follow-up of suspicious palpable abnormalities. Electronically signed and approved by: Geovanni Cruz M.D. Radiologist
== END | disposition home or self-care (01) ==
LOC: RADMAMWWP 14:26
PROVIDERS: ATTEND Family Medicine
DX: Z12.31 Encounter for screening mammogram for malignant neoplasm of breast (principal); Z78.0 Asymptomatic menopausal state; Z80.3 Family history of malignant neoplasm of breast; Z98.890 Other specified postprocedural states
CPT/HCPCS: 77063; 77067

== ENCOUNTER → 2022-12-20 | Outpatient (CLI) | payer MEDICARE, OTHER ==
--- NOTE | 2022-12-20 11:57 | XR ---
EXAMINATION TYPE: XR Hip Complete RT DATE OF EXAM: 12/20/2022 COMPARISON: NONE HISTORY: Pain TECHNIQUE: 2 views submitted FINDINGS: There is no evidence of erosive change or acute fracture. Diffuse osteopenia. Mild axial narrowing of the joint space with no acute fracture or dislocation. Vascular calcifications pelvis. SI joints pat ent. IMPRESSION: 1. No evidence of acute fracture or dislocation. 2. Mild axial narrowing of the hip joint. There is diffuse osteopenia.
--- NOTE | 2022-12-20 12:02 | XR ---
EXAM TYPE: LUMBAR SPINE X RAY SERIES COMPARISON: 06/11/2013 HISTORY: Pain TECHNIQUE: 4 views are submitted. FINDINGS: Alignment is anatomic. The pedicles are intact. The transverse processes are intact. There is surg ical clips in the right or quadrant and diffuse osteopenia. Mild hypertrophic arthropathy of the hips . Vacuum disc L4-5. Some minimal anterolisthesis L5 on S1 with facet arthropathy. Facet arthropathy e xtending from levels L3-S1. [id number] degenerative disc disease L3-4 and L5-S1. Vascular calci fications. Vacuum disc and severe degenerative disc disease L1-L2. There is a metallic device which l michelely is superficial to the patient the oblique image. IMPRESSION: 1. Diffuse osteopenia with multilevel moderate to severe degenerative disc disease and facet arthropa thy. Suspect foraminal encroachment at levels L3-S1.
== END | disposition home or self-care (01) ==
LOC: RADXRYALE 10:00
PROVIDERS: ATTEND Family Medicine
DX: M85.88 Other specified disorders of bone density and structure, other site (principal); M16.11 Unilateral primary osteoarthritis, right hip; M51.36 Other intervertebral disc degeneration, lumbar region; M47.816 Spondylosis without myelopathy or radiculopathy, lumbar region
CPT/HCPCS: 72110; 73502

== ENCOUNTER → 2023-05-31 | Outpatient (CLI) | payer MEDICARE, OTHER ==
[2023-05-31 19:18] LABS: ALT 21 U/L (8-44); AST 15 U/L (13-35); Albumin 4.2 g/dL (3.8-4.9); Albumin/Globulin Ratio 1.83 Ratio (1.60-3.17); Alkaline Phosphatase 90 U/L (41-126); BUN/Creat Ratio 16.43 Ratio (12.00-20.00); Blood Urea Nitrogen 11.5 mg/dL (9.0-27.0); Calcium 9.5 mg/dL (8.7-10.3); Carbon Dioxide 24.3 mmol/L (21.6-31.8); Chloride 105 mmol/L (96-109); Chol/HDL Ratio 5.65 Ratio; Globulin 2.3 g/dL (1.6-3.3); Glucose 116 mg/dL (70-110); LDL Cholesterol,Calculated 142.5 mg/dL (0.0-131.0); Potassium 4.1 mmol/L (3.5-5.5); Sodium 141 mmol/L (135-145); Total Bilirubin 0.5 mg/dL (0.3-1.2); Total Protein 6.5 g/dL (6.2-8.2)
[2023-05-31 20:46] LABS: Microalbumin Creatinine Ratio <8 mg/g Cr (0-30)
== END | disposition home or self-care (01) ==
LOC: LABWHC1 11:24
PROVIDERS: ATTEND Internal Medicine Interventional Cardiology
DX: E11.65 Type 2 diabetes mellitus with hyperglycemia (principal); E78.2 Mixed hyperlipidemia
CPT/HCPCS: 36415; 80053; 80061; 82043; 82570; 83036; 84443

== ENCOUNTER → 2023-06-14 | Outpatient (CLI) | payer MEDICARE, OTHER ==
--- NOTE | 2023-06-17 11:44 | MM ---
Reason for Exam: Screening (asymptomatic). Last mammogram was performed 1 year(s) and 1 month(s) ago. Patient History: Menarche at age 19. First Full-Term at age 20. Hysterectomy at age 42. Postmenopausal. Patient has history of breast feeding. Previous Atypical Ductal Hyperplasia at age 63. Patient used Estrogen for 10 years. 04/01/2020, Benign Core Biopsy on the right side. 02/23/2015, Benign Core Biopsy on the right side. 06/07/2009, Benign Excisional Biopsy on the right side. 05/31/2009, High risk Core Biopsy on the right side. Maternal grandmother had breast cancer, age 56. Sister had breast cancer, age 37. Risk Values: Pamela 5 year model risk: 8.6%. NCI Lifetime model risk: 17.5%. Prior Study Comparison: 09/30/2020 Right Diagnostic Mammogram, [facility]. 04/07/2021 Bilateral Screening Mammogram, [facility]. 05/09/2022 Bilateral MG 3D screening mammo w/cad, [facility]. Tissue Density: There are scattered areas of fibroglandular density. Findings: Analyzed By CAD. Right breast biopsy clip. Right breast: There is no suspicious group of microcalcifications or new suspicious mass. Left breast: There is no suspicious group of microcalcifications or new suspicious mass. Right breast biopsy clip. Right breast: There is no suspicious group of microcalcifications or new suspicious mass. Left breast: Asymmetry anterior depth best appreciated on slice 2454 3-D imaging measuring 6 mm in approximately 42 mm from the nipple. This may be in the superior aspect on MLO view. Overall Assessment: Incomplete: need additional imaging evaluation, BI-RAD 0 Management: Diagnostic Mammogram of the left breast. Diagnostic Breast Ultrasound of the left breast. [facility] will attempt to contact patient to return for supplemental views and ultrasound if indicated. Patient should continue monthly self-breast exams. A clinical breast exam by your physician is recommended on an annual basis. This exam should not preclude additional follow-up of suspicious palpable abnormalities. Note on Pamela scores and lifetime risk: 1. A Pamela score greater than 3% is considered moderate risk. If this is the case, consider specialist referral to assess eligibility for a risk reducing agent. 2. If overall lifetime risk for the development of breast cancer is 20% or higher, the patient may qualify for future screening with alternating mammogram and breast MRI. Electronically signed and approved by: Graeme Altman DO
== END | disposition home or self-care (01) ==
LOC: RADMAMWWP 11:41
PROVIDERS: ATTEND Family Medicine
DX: Z12.31 Encounter for screening mammogram for malignant neoplasm of breast (principal); Z78.0 Asymptomatic menopausal state; Z80.3 Family history of malignant neoplasm of breast
CPT/HCPCS: 77063; 77067

== ENCOUNTER → 2023-06-21 | Outpatient (CLI) | payer MEDICARE, OTHER ==
--- NOTE | 2023-06-21 09:54 | MM ---
Reason for Exam: Additional evaluation requested from abnormal screening. Last screening mammogram was performed less than 1 month ago. Patient History: Menarche at age 19. First Full-Term at age 20. Hysterectomy at age 42. Postmenopausal. Patient has history of breast feeding. Previous Atypical Ductal Hyperplasia at age 63. Patient used Estrogen for 10 years. 04/01/2020, Benign Core Biopsy on the right side. 02/23/2015, Benign Core Biopsy on the right side. 06/07/2009, Benign Excisional Biopsy on the right side. 05/31/2009, High risk Core Biopsy on the right side. Maternal grandmother had breast cancer, age 56. Sister had breast cancer, age 37. Risk Values: Pamela 5 year model risk: 8.6%. NCI Lifetime model risk: 17.5%. Prior Study Comparison: 04/07/2021 Bilateral Screening Mammogram, [facility]. 05/09/2022 Bilateral MG 3D screening mammo w/cad, [facility]. 06/14/2023 Bilateral MG 3D screening mammo w/cad, [facility]. Tissue Density: Left: There are scattered areas of fibroglandular density. Findings: Analyzed By CAD. Fibroglandular tissue appears stable back to at least 2019. No new suspicious masses, calcifications or distortions. Overall Assessment: Benign, BI-RAD 2 Management: Screening Mammogram of both breasts in 1 year. Results were given to the patient verbally at the time of exam. Patient should continue monthly self-breast exams. A clinical breast exam by your physician is recommended on an annual basis. This exam should not preclude additional follow-up of suspicious palpable abnormalities. Note on Pamela scores and lifetime risk: 1. A Pamela score greater than 3% is considered moderate risk. If this is the case, consider specialist referral to assess eligibility for a risk reducing agent. 2. If overall lifetime risk for the development of breast cancer is 20% or higher, the patient may qualify for future screening with alternating mammogram and breast MRI. Electronically signed and approved by: Graeme Altman DO
== END | disposition home or self-care (01) ==
LOC: RADMAMWWP 09:21
PROVIDERS: ATTEND Family Medicine
DX: R92.322 Mammographic fibroglandular density, left breast (principal); Z78.0 Asymptomatic menopausal state; Z80.3 Family history of malignant neoplasm of breast
CPT/HCPCS: 77065; G0279; 77061

== ENCOUNTER 2023-12-23 08:49 | Emergency (ER) | payer MEDICARE, OTHER ==
[2023-12-23 08:56] VITALS: RESP 18
--- NOTE | 2023-12-23 10:15 | XR ---
EXAMINATION TYPE: XR chest 2V DATE OF EXAM: 12/23/2023 COMPARISON: 05/29/2021 CLINICAL INDICATION: Female, 78 years old with history of pain; , TECHNIQUE: XR chest 2V views of the chest. FINDINGS: Left basilar subsegmental consolidation. Mild cardiomegaly. Postsurgical changes cervical spine. Diff use osteopenia and arthropathy of the shoulders. Limited inspiration. No overt failure. AC joint arth ropathy. Surgical clips in the abdomen. IMPRESSION: 1. Left basilar atelectasis or early infiltrate. [facility], , 12/23/2023 10:12 AM
--- NOTE | 2023-12-23 10:16 | XR ---
EXAMINATION TYPE: XR thoracic spine 2V DATE OF EXAM: 12/23/2023 COMPARISON: NONE CLINICAL INDICATION: Female, 78 years old with history of fall/pain; TECHNIQUE: 3 views submitted FINDINGS: Alignment is anatomic. There is no compression deformities. Multilevel mild degenerative disc diseas e with hypertrophic spurring. Surgical change lower cervical spine. Slight curvature of the spine. Henriquez rgical clips in the upper abdomen. IMPRESSION: 1. Multilevel mild degenerative disc disease. [facility], , 12/23/2023 10:14 AM
--- NOTE | 2023-12-23 10:24 | CT ---
EXAMINATION TYPE: CT brain soniaine wo con DATE OF EXAM: 12/23/2023 9:58 AM COMPARISON: 05/29/2021 CLINICAL INDICATION: Female, 78 years old with history of pain, FALL TECHNIQUE: CT of the brain is performed utilizing 3 mm thick sections through the posterior fossa and 3 mm thick sections through the remaining calvarium. Study is performed within 24 hours of arrival to the hospital. Contrast used: 0 mL of Isovue 300 , (none if empty) CT DLP: 1280.3 mGycm, Automated exposure control for dose reduction was used. FINDINGS: No abnormal hyperdensity is present to suggest an acute intracranial hemorrhage. No mass lesion is evident. No acute infarcts are evident. Ventricles and sulci are mildly prominent for the patient age. Paranasal sinuses and mastoid air cells within the jfrhi-hd-prno are clear. IMPRESSIONS: 1. No acute intracranial process. Follow-up MRI can be performed as clinically indicated. CT cervical spine. COMPARISON: None TECHNIQUE: CT of the cervical spine is performed in the axial plane at 2 mm thick sections. Reconstr ucted images in the coronal, and sagittal plane are reviewed on the computer. FINDINGS: No acute fractures are evident. Vertebral body alignment is normal. Disc height narrowing is present through the anterior cervical fusion levels of C4-C6. Some mild disc space narrowing is present C6-7. Vertebral body heights are preserved. No spinal canal stenosis is evident. No neural foraminal stenosis is evident. Anterior cervical fusion is present C4-C6. IMPRESSION: 1. Postsurgical changes within the cervical spine. 2. No acute osseous abnormality radiographically apparent. [facility], , 12/23/2023 10:22 AM
--- NOTE | 2023-12-23 11:21 | ED ---
General Adult HPI - General Chief complaint: Fall Stated complaint: FALL Time Seen by Provider: 12/23/23 08:59 Source: patient, RN notes reviewed, old records reviewed Mode of arrival: ambulatory Limitations: no limitations - History of Present Illness Initial comments: 78 yo female presents status post fall. Patient tripped while placing an item on a hook. This was a mechanical fall. No sustained loss consciousness. There was head injury. Patient's main complaint is mid upper back pain. No abdominal pain. No chest pain. - Related Data Home Medications Medication Instructions Recorded Confirmed Atorvastatin [Lipitor] 80 mg PO HS 03/21/14 12/23/23 Pantoprazole Sodium [Protonix] 40 mg PO DAILY 03/21/14 12/23/23 Pramipexole Di-HCl [Mirapex] 1.5 mg PO HS 03/21/14 12/23/23 Montelukast [Singulair] 10 mg PO HS 04/11/15 12/23/23 INSULIN LISPRO (For Pump) [humaLOG See Protocol SQ-PUMP CONTINUOUS 06/30/19 12/23/23 (For Pump)] MDD 150 UNITS lisinopriL [Prinivil] 10 mg PO DAILY 03/24/20 12/23/23 Cholestyramine (with Sugar) 4 gm PO DAILY 05/29/21 12/23/23 [Cholestyramine Packet] Dicyclomine [Bentyl] 10 mg PO QID PRN 05/29/21 12/23/23 Ergocalciferol [Vitamin D2 (1250 1,250 mcg PO TU 05/29/21 12/23/23 Mcg = 99941 Iu)] HYDROcodone/APAP 5-325MG [[place] 1 tab PO DAILY PRN 05/29/21 12/23/23 5-325] Albuterol Inhaler [Ventolin Hfa 2 puff INHALATION RT-QID PRN 12/23/23 12/23/23 Inhaler] Baclofen [Lioresal] 10 mg PO HS 12/23/23 12/23/23 Bumetanide [BUMEX] 0.5 mg PO DAILY 12/23/23 12/23/23 Clobetasol Propionate [Temovate 1 applic TOPICAL BID PRN 12/23/23 12/23/23 0.05% Oint] Escitalopram [Lexapro] 20 mg PO DAILY 12/23/23 12/23/23 Ezetimibe [Zetia] 10 mg PO DAILY 12/23/23 12/23/23 Lacosamide [Vimpat] 200 mg PO BID 12/23/23 12/23/23 Pregabalin [Lyrica] 50 mg PO BID 12/23/23 12/23/23 hydroCHLOROthiazide [Hydrodiuril] 25 mg PO DAILY 12/23/23 12/23/23 Allergies Allergy/AdvReac Type Severity Reaction Status Date / Time aspirin Allergy Swelling Verified 12/23/23 09:47 ibuprofen Allergy Swelling Verified 12/23/23 09:47 ipratropium bromide Allergy Swelling Verified 12/23/23 09:47 [From Atrovent] meperidine HCl [From Demerol] Allergy Rash/Hives Verified 12/23/23 09:47 metformin Allergy Swelling Verified 12/23/23 09:47 nickel Allergy Rash/Hives Verified 12/23/23 09:47 hydromorphone HCl AdvReac Nausea & Verified 12/23/23 09:47 [From Dilaudid] Vomiting morphine AdvReac Vomiting Verified 12/23/23 09:47 trazodone AdvReac Weakness Verified 12/23/23 09:47 zolpidem tartrate AdvReac Hallucinati Verified 12/23/23 09:47 [From Ambien] ons MSG Allergy Rash/Hives Uncoded 12/23/23 09:47 Review of Systems ROS Statement: Those systems with pertinent positive or pertinent negative responses have been documented in the HPI. ROS Other: All systems not noted in ROS Statement are negative. 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, IDDM type II, neuropathy bilateral feet, RLS, chronic cervical pain, osteoporosis, narcolepsy, hiatal hernia, diverticular disease, IBS, stress urine incontinence, lichens sclerosis, falls, asthma History of Any Multi-Drug Resistant Organisms: None Reported Past Surgical History: Appendectomy, Breast Surgery, Cholecystectomy, Heart Catheterization, Hernia Repair, Hysterectomy, Orthopedic Surgery Additional Past Surgical History / Comment(s): 06/24/18 Cervical fusions C4-C5/C5-C6/C6-C7 [facility],01/2019 Lower back surgery at [facility] R breast benign lumpectomy, cardiac cath showed mild disease, umbilical hernia repair, D&C, bilateral cataract removals, EGD, colonoscopy with benign polyp, cystocele, rectocele, vuvular bx, liver bx d/t elevated LFT. Past Anesthesia/Blood Transfusion Reactions: No Reported Reaction Past Psychological History: Anxiety, Depression Smoking Status: Never smoker Past Alcohol Use History: None Reported Past Drug Use History: None Reported - Past Family History Mother Family Medical History: Hyperlipidemia, Hypertension Additional Family Medical History / Comment(s): ANEMIA Father Family Medical History: Cancer, CVA/TIA, Diabetes Mellitus Additional Family Medical History / Comment(s): CVA, kidney cancer. General Exam Limitations: no limitations General appearance: alert, in no apparent distress Head exam: Present: atraumatic, normocephalic Eye exam: Present: normal appearance, PERRL ENT exam: Present: normal exam Neck exam: Present: normal inspection. Absent: tenderness Respiratory exam: Present: normal lung sounds bilaterally, chest wall tenderness (Mid upper back). Absent: respiratory distress Cardiovascular Exam: Present: regular rate, normal rhythm GI/Abdominal exam: Present: soft. Absent: distended, tenderness, guarding Extremities exam: Present: normal inspection Neurological exam: Present: alert, oriented X3, CN II-XII intact. Absent: motor sensory deficit Psychiatric exam: Present: normal affect, normal mood Skin exam: Present: warm, dry, intact Course Vital Signs 12/23/23 08:49 Temperature 98.1 F Pulse Rate 97 Respiratory 18 Rate Blood Pressure 157/71 O2 Sat by Pulse 97 Oximetry - Reevaluation(s) Reevaluation #1: 12/23/23 11:23 Patient requesting discharge, eager for discharge Medical Decision Making - Medical Decision Making Was pt. sent in by a medical professional or institution (, PA, MUNICIPAL COURT MAGISTRATE, urgent care, hospital, or correction...) When possible be specific @ -No Did you speak to anyone other than the patient for history (EMS, parent, family, police, friend...)? What history was obtained from this source @ -No Did you review nursing and triage notes (agree or disagree)? Why? @ -I reviewed and agree with nursing and triage notes Were old charts reviewed (outside hosp., previous admission, EMS record, old EKG, old radiological studies, urgent care reports/EKG's, correction records)? Report findings @ -No old charts were reviewed Differential Diagnosis (chest pain, altered mental status, abdominal pain women, abdominal pain men, vaginal bleeding, weakness, fever, dyspnea, syncope, headache, dizziness, GI bleed, back pain, seizure, CVA, palpatations, mental health, musculoskeletal)? @ -Not applicable EKG interpreted by me (3pts min.). @ -EKG: Sinus rhythm rate of 90, LA interval 144, QRS duration 89, QTc [address] segment elevation. X-rays interpreted by me (1pt min.). @X-ray of the chest and thoracic spine are negative for traumatic injury CT interpreted by me (1pt min.). @ -CT brain and C-spine negative for traumatic injury U/S interpreted by me (1pt. min.). @ -None done What testing was considered but not performed or refused? (CT, X-rays, U/S, labs)? Why? @ -None What meds were considered but not given or refused? Why? @ -None Did you discuss the management of the patient with other professionals (professionals i.e. , PA, MUNICIPAL COURT MAGISTRATE, lab, RT, psych nurse, social sciences department chair, manager sound, teacher, aviation tactical readiness officer, residential case manager)? Give summary @ -No Was smoking cessation discussed for >3mins.? @ -No Was critical care preformed (if so, how long)? @ -No Were there social determinants of health that impacted care today? How? (Homelessness, low income, unemployed, alcoholism, drug addiction, transportation, low edu. Level, literacy, decrease access to med. care, fdc, rehab)? @ -No Was there de-escalation of care discussed even if they declined (Discuss DNR or withdrawal of care, Hospice)? DNR status @ -No What co-morbidities impacted this encounter? (DM, HTN, Smoking, COPD, CAD, Cancer, CVA, ARF, Chemo, Hep., AIDS, mental health diagnosis, sleep apnea, morbid obesity)? @ -None Was patient admitted / discharged? Hospital course, mention meds given and route, prescriptions, significant lab abnormalities, going to OR and other pertinent info. @ -78-year-old female status post fall with mid upper back pain. CT was performed for minor head injury this was negative for intracranial hemorrhage or mass effect. X-rays of the thoracic spine and chest are negative. Patient is eager for discharge from the time of initial evaluation. Family is at bedside. Instructed to return if her symptoms should worsen or change. Undiagnosed new problem with uncertain prognosis? @ -No Drug Therapy requiring intensive monitoring for toxicity (Heparin, Nitro, Insulin, Cardizem)? @ -No Were any procedures done? @ -No Diagnosis/symptom? @ -Fall, mid back contusion Acute, or Chronic, or Acute on Chronic? @ -Acute Uncomplicated (without systemic symptoms) or Complicated (systemic symptoms)? @ -Default Side effects of treatment? @ -No Exacerbation, Progression, or Severe Exacerbation? @ -No Poses a threat to life or bodily function? How? (Chest pain, [place], [place], pneumonia, PE, COPD, DKA, ARF, appy, cholecystitis, CVA, Diverticulitis, Homicidal, Suicidal, threat to staff... and all critical care pts) @ -No Disposition Clinical Impression: Fall Disposition: HOME SELF-CARE Condition: Fair Instructions (If sedation given, give patient instructions): Fall Prevention for Older Adults (ED) Is patient prescribed a controlled substance at d/c from ED?: No Referrals: Chris Caicedo DO [Primary Care Provider] - 1-2 days Time of Disposition: 11:20
[2023-12-23 11:41] VITALS: BP 124/66; PULSE 86; TEMP 98
== END 2023-12-23 11:30 | disposition home or self-care (01) ==
LOC: EC 08:49
DX: S30.0XXA Contusion of lower back and pelvis, initial encounter (principal); Z88.5 Allergy status to narcotic agent; Z88.8 Allergy status to other drugs, medicaments and biological substances; Z90.49 Acquired absence of other specified parts of digestive tract; Z86.73 Personal history of transient ischemic attack (TIA), and cerebral infarction without residual deficits; W01.0XXA Fall on same level from slipping, tripping and stumbling without subsequent striking against object, initial encounter
CPT/HCPCS: 70450; 71046; 72070; 72125; 93005; 99284

== ENCOUNTER 2023-12-25 18:36 | Emergency (ER) | payer MEDICARE, OTHER ==
[2023-12-25 18:43] VITALS: TEMP 98.3
[2023-12-25 19:29] LABS: Basophils # (A) 0.1 k/uL (0-0.2); Basophils % (A) 0 %; Eosinophils # (A) 0.2 k/uL (0-0.7); Eosinophils % (A) 2 %; HCT 38.2 % (34.0-46.0); HGB 12.4 gm/dL (11.4-16.0); Lymphocytes # (A) 1.1 k/uL (1.0-4.8); Lymphocytes % (A) 9 %; MCH 29.4 pg (25.0-35.0); MCHC 32.5 g/dL (31.0-37.0); MCV 90.4 fL (80.0-100.0); Mean Platelet Volume 7.3; Monocytes # (A) 0.6 k/uL (0-1.0); Monocytes % (A) 4 %; Neutrophils # (A) 10.9 k/uL (1.3-7.7); Neutrophils % (A) 84 %; Platelet Count 231 k/uL (150-450); RBC 4.22 m/uL (3.80-5.40); RDW 13.6 % (11.5-15.5)
[2023-12-25 19:35] LABS: INR 0.8 (<1.2); Partial Thromboplastin Time 23.3 sec (22.0-30.0); Prothrombin Time 9.6 sec (10.0-12.5)
[2023-12-25 19:36] LABS: ALT 20 U/L (4-34); AST 15 U/L (14-36); African American GFR (CKD) 40 (>60 ml/min/1.73 sqM); Albumin 3.7 g/dL (3.5-5.0); Alkaline Phosphatase 76 U/L (38-126); Anion Gap 8 mmol/L; Blood Urea Nitrogen 38 mg/dL (7-17); Carbon Dioxide 24 mmol/L (22-30); Chloride 104 mmol/L (98-107); Glucose 238 mg/dL (74-99); Magnesium 1.9 mg/dL (1.6-2.3); Non-African American GFR(CKD) 35 (>60 ml/min/1.73 sqM); Potassium 4.8 mmol/L (3.5-5.1); Sodium 136 mmol/L (137-145); Total Bilirubin 0.5 mg/dL (0.2-1.3); Total Protein 5.8 g/dL (6.3-8.2)
[2023-12-25 20:33] LABS: Appearance,Urine Cloudy (Clear); Bacteria,Urine Moderate /hpf; Bilirubin,Urine 1+ (Negative); Blood,Urine Negative (Negative); Calcium Oxalate Crystals,Urine Rare /hpf; Color,Urine Yellow; Glucose,Urine (UA) Trace (Negative); Hyaline Casts,Urine 105 /lpf (0-2); Ketones,Urine Negative (Negative); Leukocyte Esterase,Urine Trace (Negative); Mucus,Urine Few /hpf; Nitrite,Urine Negative (Negative); Protein,Urine 1+ (Negative); RBC,Urine 6 /hpf (0-5); Specific Gravity,Urine 1.025 (1.001-1.035); Squamous Epithelial Cell,Urine 8 /hpf (0-4); WBC,Urine 7 /hpf (0-5)
[2023-12-25] MEDS: SODIUM CHLORIDE 0.9% 1,000 ML IV ONE ×2 (20:37→20:58)
--- NOTE | 2023-12-25 20:43 | ED ---
General Adult HPI - General Chief complaint: Recheck/Abnormal Lab/Rx Stated complaint: Hypotension Time Seen by Provider: 12/25/23 18:50 Source: patient, RN notes reviewed, old records reviewed Mode of arrival: wheelchair Limitations: no limitations - History of Present Illness Initial comments: This is a 78-year-old female who comes to the emergency department stating that her blood pressure is low. Patient's son noted her being very tired today and took her blood pressure and it was under 100 so he brought her into the emergency department. Patient states he never takes her blood pressure in the morning before she takes her blood pressure pill so it could be low then. Patient also states she is not drinking enough fluids and she also has not been sleeping much. According to the daughter she stays up most of the night and then tries to stay up all day and that is why she is normally so tired. And the daughter also states that she does not drink enough fluids. Patient has no chest pain difficulty breathing shortness of breath. Patient has no headache patient denies numbness weakness. Patient has abdominal pain patient has nausea vomiting diarrhea. Patient states she has had no recent fever chills or cough. Patient states she does not really want to be here at this time she only came in because her son wanted her to - Related Data Home Medications Medication Instructions Recorded Confirmed Atorvastatin [Lipitor] 80 mg PO HS 03/21/14 12/23/23 Pantoprazole Sodium [Protonix] 40 mg PO DAILY 03/21/14 12/23/23 Pramipexole Di-HCl [Mirapex] 1.5 mg PO HS 03/21/14 12/23/23 Montelukast [Singulair] 10 mg PO HS 04/11/15 12/23/23 INSULIN LISPRO (For Pump) [humaLOG See Protocol SQ-PUMP CONTINUOUS 06/30/19 12/23/23 (For Pump)] MDD 150 UNITS lisinopriL [Prinivil] 10 mg PO DAILY 03/24/20 12/23/23 Cholestyramine (with Sugar) 4 gm PO DAILY 05/29/21 12/23/23 [Cholestyramine Packet] Dicyclomine [Bentyl] 10 mg PO QID PRN 05/29/21 12/23/23 Ergocalciferol [Vitamin D2 (1250 1,250 mcg PO TU 05/29/21 12/23/23 Mcg = 55214 Iu)] HYDROcodone/APAP 5-325MG [[place] 1 tab PO DAILY PRN 05/29/21 12/23/23 5-325] Albuterol Inhaler [Ventolin Hfa 2 puff INHALATION RT-QID PRN 12/23/23 12/23/23 Inhaler] Baclofen [Lioresal] 10 mg PO HS 12/23/23 12/23/23 Bumetanide [BUMEX] 0.5 mg PO DAILY 12/23/23 12/23/23 Clobetasol Propionate [Temovate 1 applic TOPICAL BID PRN 12/23/23 12/23/23 0.05% Oint] Escitalopram [Lexapro] 20 mg PO DAILY 12/23/23 12/23/23 Ezetimibe [Zetia] 10 mg PO DAILY 12/23/23 12/23/23 Lacosamide [Vimpat] 200 mg PO BID 12/23/23 12/23/23 Pregabalin [Lyrica] 50 mg PO BID 12/23/23 12/23/23 hydroCHLOROthiazide [Hydrodiuril] 25 mg PO DAILY 12/23/23 12/23/23 Allergies Allergy/AdvReac Type Severity Reaction Status Date / Time aspirin Allergy Swelling Verified 12/25/23 18:40 ibuprofen Allergy Swelling Verified 12/25/23 18:40 ipratropium bromide Allergy Swelling Verified 12/25/23 18:40 [From Atrovent] meperidine HCl [From Demerol] Allergy Rash/Hives Verified 12/25/23 18:40 metformin Allergy Swelling Verified 12/25/23 18:40 nickel Allergy Rash/Hives Verified 12/25/23 18:40 hydromorphone HCl AdvReac Nausea & Verified 12/25/23 18:40 [From Dilaudid] Vomiting morphine AdvReac Vomiting Verified 12/25/23 18:40 trazodone AdvReac Weakness Verified 12/25/23 18:40 zolpidem tartrate AdvReac Hallucinati Verified 12/25/23 18:40 [From Ambien] ons MSG Allergy Rash/Hives Uncoded 12/25/23 18:40 Review of Systems ROS Statement: Those systems with pertinent positive or pertinent negative responses have been documented in the HPI. ROS Other: All systems not noted in ROS Statement are negative. 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, IDDM type II, neuropathy bilat eral feet, RLS, chronic cervical pain, osteoporosis, narcolepsy, hiatal hernia, diverticular disease, IBS, stress urine incontinence, lichens sclerosis, falls, asthma History of Any Multi-Drug Resistant Organisms: None Reported Past Surgical History: Appendectomy, Breast Surgery, Cholecystectomy, Heart Catheterization, Hernia Repair, Hysterectomy, Orthopedic Surgery Additional Past Surgical History / Comment(s): 06/24/18 Cervical fusions C4-C5/C5-C6/C6-C7 at [facility],01/2019 Lower back surgery at [facility] R breast benign lumpectomy, cardiac cath showed mild disease, umbilical hernia repair, D&C, bilateral cataract removals, EGD, colonoscopy with benign polyp, cystocele, rectocele, vuvular bx, liver bx d/t elevated LFT. Past Anesthesia/Blood Transfusion Reactions: No Reported Reaction Past Psychological History: Anxiety, Depression Smoking Status: Never smoker Past Alcohol Use History: None Reported Past Drug Use History: None Reported - Past Family History Mother Family Medical History: Hyperlipidemia, Hypertension Additional Family Medical History / Comment(s): ANEMIA Father Family Medical History: Cancer, CVA/TIA, Diabetes Mellitus Additional Family Medical History / Comment(s): CVA, kidney cancer. General Exam - General Exam Comments Initial Comments: GENERAL: Patient is well-developed and well-nourished. Patient is nontoxic and well- hydrated and is in no acute distress. ENT: Neck is soft and supple. No significant lymphadenopathy is noted. Oropharynx is clear. Moist mucous membranes. Neck has full range of motion without eliciting any pain. EYES: The sclera were anicteric and conjunctiva were pink and moist. Extraocular movements were intact and pupils were equal round and reactive to light. Eyelids were unremarkable. PULMONARY: Unlabored respirations. Good breath sounds bilaterally. No audible rales rhonchi or wheezing was noted. CARDIOVASCULAR: There is a regular rate and rhythm without any murmurs gallops or rubs. ABDOMEN: Soft and nontender with normal bowel sounds. SKIN: Skin is clear with no lesions or rashes and otherwise unremarkable. NEUROLOGIC: Patient is alert and oriented x3. Cranial nerves II through XII are grossly intact. Motor and sensory are also intact. Normal speech, volume and content. Symmetrical smile. MUSCULOSKELETAL: Normal extremities with adequate strength and full range of motion. No lower extremity swelling or edema. No calf tenderness. LYMPHATICS: No significant lymphadenopathy is noted PSYCHIATRIC: Normal psychiatric evaluation. Limitations: no limitations Course Vital Signs 12/25/23 12/25/23 12/25/23 18:40 19:26 20:22 Temperature 98.3 F Pulse Rate 86 74 Respiratory 18 16 Rate Blood Pressure 100/45 108/46 Blood Pressure 93/61 [Left Arm Sitting] Blood Pressure 103/50 [Left Arm Standing] Blood Pressure 100/46 [Left Arm Supine] O2 Sat by Pulse 95 95 Oximetry Medical Decision Making - Medical Decision Making EKG is interpreted by myself. EKG shows a sinus rhythm at 77 bpm. Over the 177 QRS is 85 QT interval 366 QTc is 397. Patient's EKG shows no ST segment elevation or depression. Was pt. sent in by a medical professional or institution (, PA, ASSOCIATE PROFESSOR OF MANAGEMENT, urgent care, hospital, or correction...) When possible be specific @ -No Did you speak to anyone other than the patient for history (EMS, parent, family, police, friend...)? What history was obtained from this source @ -No Did you review nursing and triage notes (agree or disagree)? Why? @ -I reviewed and agree with nursing and triage notes Were old charts reviewed (outside hosp., previous admission, EMS record, old EKG, old radiological studies, urgent care reports/EKG's, correction records)? Report findings @ -No old charts were reviewed Differential Diagnosis? @ -Differential Weakness: Hypoglycemia, shock, sepsis, hyponatremia, anemia, infection, VT, ETOH, adverse medicine reaction, overdose, stroke, this is not meant to be an all-inclusive list. EKG interpreted by me (3pts min.). @ -As above X-rays interpreted by me (1pt min.). @ -None done CT interpreted by me (1pt min.). @ -None done U/S interpreted by me (1pt. min.). @ -None done What testing was considered but not performed or refused? (CT, X-rays, U/S, labs)? Why? @ -None What meds were considered but not given or refused? Why? @ -None Did you discuss the management of the patient with other professionals (professionals i.e. , PA, ASSOCIATE PROFESSOR OF MANAGEMENT, lab, RT, psych nurse, social service technician, community resource consultant, teacher, chief scientific officer, case specialist)? Give summary @ -No Was smoking cessation discussed for >3mins.? @ -No Was critical care preformed (if so, how long)? @ -No Were there social determinants of health that impacted care today? How? (Homelessness, low income, unemployed, alcoholism, drug addiction, transportation, low edu. Level, literacy, decrease access to med. care, senior care, rehab)? @ -No Was there de-escalation of care discussed even if they declined (Discuss DNR or withdrawal of care, Hospice)? DNR status @ -No What co-morbidities impacted this encounter? (DM, HTN, Smoking, COPD, CAD, Cancer, CVA, ARF, Chemo, Hep., AIDS, mental health diagnosis, sleep apnea, morbid obesity)? @ -None Was patient admitted / discharged? Hospital course, mention meds given and route, prescriptions, significant lab abnormalities, going to OR and other pertinent info. @ -Patient was given a liter of fluids. Patient was not orthostatic. Patient was feeling better after she received a liter of fluids. Patient has no other complaints at this time she agrees she needs to take her blood pressure in the morning before taking her medications. Patient also states she has drink more fluids. Also agrees that she needs to get better sleep. Undiagnosed new problem with uncertain prognosis? @ -No Drug Therapy requiring intensive monitoring for toxicity (Heparin, Nitro, Insulin, Cardizem)? @ -No Were any procedures done? @ -No Diagnosis/symptom? @ -Fatigue Acute, or Chronic, or Acute on Chronic? @ -Acute Uncomplicated (without systemic symptoms) or Complicated (systemic symptoms)? @ -Complicated Side effects of treatment? @ -No Exacerbation, Progression, or Severe Exacerbation? @ -No Poses a threat to life or bodily function? How? (Chest pain, USA, VT, pneumonia, PE, COPD, DKA, ARF, appy, cholecystitis, CVA, Diverticulitis, Homicidal, Suicidal, threat to staff... and all critical care pts) @ -No Diagnosis/symptom? @ -Renal insufficiency Acute, or Chronic, or Acute on Chronic? @ -Acute Uncomplicated (without systemic symptoms) or Complicated (systemic symptoms)? @ -Complicated Side effects of treatment? @ -None Exacerbation, Progression, or Severe Exacerbation] @ -No Poses a threat to life or bodily function? @ -No - Lab Data Result diagrams: 12/25/23 19:20 12/25/23 19:20 Lab Results 12/25/23 12/25/23 12/25/23 Range/Units 19:20 19:20 19:20 WBC 13.0 H (3.8-10.6) k/uL RBC 4.22 (3.80-5.40) m/uL Hgb 12.4 (11.4-16.0) gm/dL Hct 38.2 (34.0-46.0) % MCV 90.4 (80.0-100.0) fL MCH 29.4 (25.0-35.0) pg MCHC 32.5 (31.0-37.0) g/dL RDW 13.6 (11.5-15.5) % Plt Count 231 (150-450) k/uL MPV 7.3 Neutrophils % 84 % Lymphocytes % 9 % Monocytes % 4 % Eosinophils % 2 % Basophils % 0 % Neutrophils # 10.9 H (1.3-7.7) k/uL Lymphocytes # 1.1 (1.0-4.8) k/uL Monocytes # 0.6 (0-1.0) k/uL Eosinophils # 0.2 (0-0.7) k/uL Basophils # 0.1 (0-0.2) k/uL PT 9.6 L (10.0-12.5) sec INR 0.8 (<1.2) APTT 23.3 (22.0-30.0) sec Sodium 136 L (137-145) mmol/L Potassium 4.8 (3.5-5.1) mmol/L Chloride 104 (98-107) mmol/L Carbon Dioxide 24 (22-30) mmol/L Anion Gap 8 mmol/L BUN 38 H (7-17) mg/dL Creatinine 1.46 H (0.52-1.04) mg/dL Est GFR (CKD-EPI)AfAm 40 (>60 ml/min/1.73 sqM) Est GFR (CKD-EPI)NonAf 35 (>60 ml/min/1.73 sqM) Glucose 238 H (74-99) mg/dL Calcium 9.0 (8.4-10.2) mg/dL Magnesium 1.9 (1.6-2.3) mg/dL Total Bilirubin 0.5 (0.2-1.3) mg/dL AST 15 (14-36) U/L ALT 20 (4-34) U/L Alkaline Phosphatase 76 (38-126) U/L Troponin I (0.000-0.034) ng/mL Total Protein 5.8 L (6.3-8.2) g/dL Albumin 3.7 (3.5-5.0) g/dL Urine Color Urine Appearance (Clear) Urine pH (5.0-8.0) Ur Specific Branch (1.001-1.035) Urine Protein (Negative) Urine Glucose (UA) (Negative) Urine Ketones (Negative) Urine Blood (Negative) Urine Nitrite (Negative) Urine Bilirubin (Negative) Urine Urobilinogen (<2.0) mg/dL Ur Leukocyte Esterase (Negative) Urine RBC (0-5) /hpf Urine WBC (0-5) /hpf Ur Squamous Epith Cells (0-4) /hpf Calcium Oxalate Crystal (None) /hpf Urine Bacteria (None) /hpf Hyaline Casts (0-2) /lpf Urine Mucus (None) /hpf 12/25/23 12/25/23 Range/Units 19:20 20:17 WBC (3.8-10.6) k/uL RBC (3.80-5.40) m/uL Hgb (11.4-16.0) gm/dL Hct (34.0-46.0) % MCV (80.0-100.0) fL MCH (25.0-35.0) pg MCHC (31.0-37.0) g/dL RDW (11.5-15.5) % Plt Count (150-450) k/uL MPV Neutrophils % % Lymphocytes % % Monocytes % % Eosinophils % % Basophils % % Neutrophils # (1.3-7.7) k/uL Lymphocytes # (1.0-4.8) k/uL Monocytes # (0-1.0) k/uL Eosinophils # (0-0.7) k/uL Basophils # (0-0.2) k/uL PT (10.0-12.5) sec INR (<1.2) APTT (22.0-30.0) sec Sodium (137-145) mmol/L Potassium (3.5-5.1) mmol/L Chloride (98-107) mmol/L Carbon Dioxide (22-30) mmol/L Anion Gap mmol/L BUN (7-17) mg/dL Creatinine (0.52-1.04) mg/dL Est GFR (CKD-EPI)AfAm (>60 ml/min/1.73 sqM) Est GFR (CKD-EPI)NonAf (>60 ml/min/1.73 sqM) Glucose (74-99) mg/dL Calcium (8.4-10.2) mg/dL Magnesium (1.6-2.3) mg/dL Total Bilirubin (0.2-1.3) mg/dL AST (14-36) U/L ALT (4-34) U/L Alkaline Phosphatase (38-126) U/L Troponin I <0.012 (0.000-0.034) ng/mL Total Protein (6.3-8.2) g/dL Albumin (3.5-5.0) g/dL Urine Color Yellow Urine Appearance Cloudy H (Clear) Urine pH 5.0 (5.0-8.0) Ur Specific Branch 1.025 (1.001-1.035) Urine Protein 1+ H (Negative) Urine Glucose (UA) Trace H (Negative) Urine Ketones Negative (Negative) Urine Blood Negative (Negative) Urine Nitrite Negative (Negative) Urine Bilirubin 1+ H (Negative) Urine Urobilinogen 2.0 (<2.0) mg/dL Ur Leukocyte Esterase Trace H (Negative) Urine RBC 6 H (0-5) /hpf Urine WBC 7 H (0-5) /hpf Ur Squamous Epith Cells 8 H (0-4) /hpf Calcium Oxalate Crystal Rare H (None) /hpf Urine Bacteria Moderate H (None) /hpf Hyaline Casts 105 H (0-2) /lpf Urine Mucus Few H (None) /hpf Disposition Clinical Impression: Fatigue, Dehydration, Renal insufficiency Disposition: HOME SELF-CARE Condition: Good Instructions (If sedation given, give patient instructions): Dehydration (ED), Fatigue (ED) Additional Instructions: Patient should follow-up with primary medical care doctor for the renal insufficiency Is patient prescribed a controlled substance at d/c from ED?: No Referrals: Chris Caicedo DO [Primary Care Provider] - 1-2 days Time of Disposition: 20:43
[2023-12-25 21:53] VITALS: BP 101/50; PULSE 67; RESP 18
== END 2023-12-25 22:01 | disposition home or self-care (01) ==
LOC: EC 18:36
DX: R53.83 Other fatigue (principal); E86.0 Dehydration; N28.9 Disorder of kidney and ureter, unspecified; Z88.6 Allergy status to analgesic agent; Z88.8 Allergy status to other drugs, medicaments and biological substances; Z88.5 Allergy status to narcotic agent
CPT/HCPCS: 36415; 80053; 81001; 83735; 84484; 85025; 85610; 85730; 93005; 96360; 99283; 99285

== ENCOUNTER 2024-04-06 11:54 | Observation (INO) | payer MEDICARE, OTHER ==
--- NOTE | 2024-04-06 12:39 | ED ---
General Adult HPI - General Chief complaint: Altered Mental Status Stated complaint: AMS Time Seen by Provider: 04/06/24 12:08 Source: EMS Mode of arrival: EMS Limitations: no limitations - History of Present Illness Initial comments: Dictation was produced using [employer] dictation software. please excuse any grammatical, word or spelling errors. 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 Apparently she was in her usual state of health last night. This morning she woke up states that she think she had a seizure overnight. She is not sure if she fell last night. She did fall approximately a week and a half ago. Complains of mild headache and right hip pain. Denies any burning urination. I was sick contacts. No constitutional symptoms. The ROS documented in this emergency department record has been reviewed and confirmed by me. Those systems with pertinent positive or negative responses have been documented in the HPI. All other systems are other negative and/or noncontributory. - Related Data Home Medications Medication Instructions Recorded Confirmed Atorvastatin [Lipitor] 80 mg PO HS 03/21/14 12/23/23 Pantoprazole Sodium [Protonix] 40 mg PO DAILY 03/21/14 12/23/23 Pramipexole Di-HCl [Mirapex] 1.5 mg PO HS 03/21/14 12/23/23 Montelukast [Singulair] 10 mg PO HS 04/11/15 12/23/23 INSULIN LISPRO (For Pump) [humaLOG See Protocol SQ-PUMP CONTINUOUS 06/30/1906/11 (For Pump)] MDD 150 UNITS lisinopriL [Prinivil] 10 mg PO DAILY 03/24/20 12/23/23 Cholestyramine (with Sugar) 4 gm PO DAILY 05/29/21 12/23/23 [Cholestyramine Packet] Dicyclomine [Bentyl] 10 mg PO QID PRN 05/29/21 12/23/23 Ergocalciferol [Vitamin D2 (1250 1,250 mcg PO TU 05/29/21 12/23/23 Mcg = 50670 Iu)] HYDROcodone/APAP 5-325MG [[place] 1 tab PO DAILY PRN 05/29/21 12/23/23 5-325] Albuterol Inhaler [Ventolin Hfa 2 puff INHALATION RT-QID PRN 12/23/23 12/23/23 Inhaler] Baclofen [Lioresal] 10 mg PO HS 12/23/23 12/23/23 Bumetanide [BUMEX] 0.5 mg PO DAILY 12/23/23 12/23/23 Clobetasol Propionate [Temovate 1 applic TOPICAL BID PRN 12/23/23 12/23/23 0.05% Oint] Escitalopram [Lexapro] 20 mg PO DAILY 12/23/23 12/23/23 Ezetimibe [Zetia] 10 mg PO DAILY 12/23/23 12/23/23 Lacosamide [Vimpat] 200 mg PO BID 12/23/23 12/23/23 Pregabalin [Lyrica] 50 mg PO BID 12/23/23 12/23/23 hydroCHLOROthiazide [Hydrodiuril] 25 mg PO DAILY 12/23/23 12/23/23 Allergies Allergy/AdvReac Type Severity Reaction Status Date / Time aspirin Allergy Swelling Verified 04/06/24 12:00 ibuprofen Allergy Swelling Verified 04/06/24 12:00 ipratropium bromide Allergy Swelling Verified 04/06/24 12:00 [From Atrovent] meperidine HCl [From Demerol] Allergy Rash/Hives Verified 04/06/24 12:00 metformin Allergy Swelling Verified 04/06/24 12:00 nickel Allergy Rash/Hives Verified 04/06/24 12:00 hydromorphone HCl AdvReac Nausea & Verified 04/06/24 12:00 [From Dilaudid] Vomiting morphine AdvReac Vomiting Verified 04/06/24 12:00 trazodone AdvReac Weakness Verified 04/06/24 12:00 zolpidem tartrate AdvReac Hallucinati Verified 04/06/24 12:00 [From Ambien] ons MSG Allergy Rash/Hives Uncoded 04/06/24 12:00 Review of Systems ROS Statement: Those systems with pertinent positive or pertinent negative responses have been documented in the HPI. ROS Other: All systems not noted in ROS Statement are negative. 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, IDDM type II, neuropathy bilateral feet, RLS, chronic cervical pain, osteoporosis, narcolepsy, hiatal hernia, diverticular disease, IBS, stress urine incontinence, lichens sclerosis, falls, asthma History of Any Multi-Drug Resistant Organisms: None Reported Past Surgical History: Appendectomy, Breast Surgery, Cholecystectomy, Heart Catheterization, Hernia Repair, Hysterectomy, Orthopedic Surgery Additional Past Surgical History / Comment(s): 06/24/18 Cervical fusions C4-C5/ C5-C6/C6-C7 at [facility],01/2019 Lower back surgery at [facility] R breast benign lumpectomy, cardiac cath showed mild disease, umbilical hernia repair, D&C, bilateral cataract removals, EGD, colonoscopy with benign polyp, cystocele, rectocele, vuvular bx, liver bx d/t elevated LFT. Past Anesthesia/Blood Transfusion Reactions: No Reported Reaction Past Psychological History: Anxiety, Depression Smoking Status: Never smoker Past Alcohol Use History: None Reported Past Drug Use History: None Reported - Past Family History Mother Family Medical History: Hyperlipidemia, Hypertension Additional Family Medical History / Comment(s): ANEMIA Father Family Medical History: Cancer, CVA/TIA, Diabetes Mellitus Additional Family Medical History / Comment(s): CVA, kidney cancer. General Exam - General Exam Comments Initial Comments: PHYSICAL EXAM: General Impression: Alert and oriented x3, dry mucous membranes HEENT: Normocephalic atraumatic, extra-ocular movements intact, pupils equal and reactive to light bilaterally, mucous membranes moist. Cardiovascular: Heart regular rate and rhythm Chest: Able to complete full sentences, no retractions, no tachypnea Abdomen: abdomen soft, non-tender, non-distended, no organomegaly Musculoskeletal: Pulses present and equal in all extremities, no peripheral edema Motor: Weakness to the right arm Neurological: CN II-XII grossly intact, no focal motor or sensory deficits noted Skin: Intact with no visualized rashes Psych: Normal affect and mood Limitations: no limitations Course Vital Signs 04/06/24 04/06/24 11:55 15:40 Temperature 98.3 F Pulse Rate 92 70 Respiratory 16 16 Rate Blood Pressure 172/73 159/75 O2 Sat by Pulse 93 L 95 Oximetry EKG Findings - EKG Comments: EKG Findings:: My EKG interpretation: Ventricular rate 6, sinus rhythm,. 191, QRS 80, QTc 4 9. No MO prolongation, no QTC prolongation, no ST or T-wave changes noted. Overall, this EKG is unremarkable Medical Decision Making - Medical Decision Making Was pt. sent in by a medical professional or institution (, PA, TALENT ACQUISITION SPECIALIST, urgent care, hospital, or [place] health care facility...) When possible be specific @ -No Did you speak to anyone other than the patient for history (EMS, parent, family, police, friend...)? What history was obtained from this source @ -No Did you review nursing and triage notes (agree or disagree)? Why? @ -I reviewed and agree with nursing and triage notes Were old charts reviewed (outside hosp., previous admission, EMS record, old EKG, old radiological studies, urgent care reports/EKG's, [place] health care facility records)? Report findings @ -No old charts were reviewed Differential Diagnosis (chest pain, altered mental status, abdominal pain women, abdominal pain men, vaginal bleeding, musculoskeletal, weakness, fever, dyspnea, syncope, headache, dizziness, GI bleed, back pain, seizure, CVA, palpatations, mental health)? @ -Differential Weakness: Hypoglycemia, shock, sepsis, hyponatremia, anemia, infection, SD, ETOH, adverse medicine reaction, overdose, stroke, this is not meant to be an all-inclusive list. EKG interpreted by me (3pts min.). @ -As above X-rays interpreted by me (1pt min.). @ -Hip x-ray is nonacute CT interpreted by me (1pt min.). @ -Brain is nonacute U/S interpreted by me (1pt. min.). @ -None done What testing was considered but not performed or refused? (CT, X-rays, U/S, labs)? Why? @ -None What meds were considered but not given or refused? Why? @ -None Was smoking cessation discussed for >3mins.? @ -No Were there social determinants of health that impacted care today? How? (H omelessness, low income, unemployed, alcoholism, drug addiction, transportation, low edu. Level, literacy, decrease access to med. care, halfway, rehab)? @ -No Was there de-escalation of care discussed even if they declined (Discuss DNR or withdrawal of care, Hospice)? DNR status @ -No What co-morbidities impacted this encounter? (DM, HTN, Smoking, COPD, CAD, Cancer, CVA, ARF, Chemo, Hep., AIDS, mental health diagnosis, sleep apnea, morbid obesity)? @ -None Was patient admitted / discharged? Hospital course, mention meds given and route, prescriptions, significant lab abnormalities, going to OR and other pertinent info. @ -78-year-old female brought into the emergency department for altered mental status and weakness. She has been having progressive weakness for the past couple days. Patient altered but not having any focal findings on neuroexam at the bedside. Vital signs are stable. Labs and imaging are within acceptable limits. Disposition options were discussed. Patient apparently having difficulty caring for self despite some assistance from her son who she lives with. Family request that patient be admitted for further care for debility. Did you discuss the management of the patient with other professionals (professionals i.e. , PA, TALENT ACQUISITION SPECIALIST, lab, RT, psych nurse, social services coordinator, data review specialist, teacher, chief fundraising officer, case mgr)? Give summary @ -Case discussed with hospitalist for admission Was critical care preformed (if so, how long)? @ -No Undiagnosed new problem with uncertain prognosis? @ -No Drug Therapy requiring intensive monitoring for toxicity (Heparin, Nitro, Insulin, Cardizem)? @ -No Were any procedures done? @ -No Diagnosis/symptom? Acute, or Chronic, or Acute on Chronic? Uncomplicated (without systemic symptoms) or Complicated (systemic symptoms)? @ -Gravely disabled Side effects of treatment? @ -No Exacerbation, Progression, or Severe Exacerbation? @ -No Poses a threat to life or bodily function? How? (Chest pain, USA, SD, pneumonia, PE, COPD, DKA, ARF, appy, cholecystitis, CVA, Diverticulitis, Homicidal, Suicidal, threat to staff... and all critical care pts) @ -yes - Lab Data Result diagrams: 04/06/24 12:50 04/06/24 12:50 Lab Results 04/06/24 04/06/24 04/06/24 Range/Units 12:50 12:50 12:50 WBC 7.8 (3.8-10.6) k/uL RBC 4.55 (3.80-5.40) m/uL Hgb 13.1 (11.4-16.0) gm/dL Hct 39.6 (34.0-46.0) % MCV 87.1 (80.0-100.0) fL MCH 28.9 (25.0-35.0) pg MCHC 33.1 (31.0-37.0) g/dL RDW 13.4 (11.5-15.5) % Plt Count 179 (150-450) k/uL MPV 7.6 Neutrophils % 80 % Lymphocytes % 11 % Monocytes % 5 % Eosinophils % 2 % Basophils % 0 % Neutrophils # 6.3 (1.3-7.7) k/uL Lymphocytes # 0.9 L (1.0-4.8) k/uL Monocytes # 0.4 (0-1.0) k/uL Eosinophils # 0.2 (0-0.7) k/uL Basophils # 0.0 (0-0.2) k/uL PT 10.0 (10.0-12.5) sec INR 0.9 (<1.2) APTT 21.8 L (22.0-30.0) sec Sodium (137-145) mmol/L Potassium (3.5-5.1) mmol/L Chloride (98-107) mmol/L Carbon Dioxide (22-30) mmol/L Anion Gap mmol/L BUN (7-17) mg/dL Creatinine (0.52-1.04) mg/dL Est GFR (CKD-EPI)AfAm (>60 ml/min/1.73 sqM) Est GFR (CKD-EPI)NonAf (>60 ml/min/1.73 sqM) Glucose (74-99) mg/dL Plasma Lactic Acid Donte (0.7-2.0) mmol/L Calcium (8.4-10.2) mg/dL Magnesium (1.6-2.3) mg/dL Total Bilirubin (0.2-1.3) mg/dL AST (14-36) U/L ALT (4-34) U/L Alkaline Phosphatase (38-126) U/L Total Protein (6.3-8.2) g/dL Albumin (3.5-5.0) g/dL Urine Color Colorless Urine Appearance Clear (Clear) Urine pH 5.5 (5.0-8.0) Ur Specific [place] 1.011 (1.001-1.035) Urine Protein Negative (Negative) Urine Glucose (UA) Negative (Negative) Urine Ketones Negative (Negative) Urine Blood Negative (Negative) Urine Nitrite Negative (Negative) Urine Bilirubin Negative (Negative) Urine Urobilinogen <2.0 (<2.0) mg/dL Ur Leukocyte Esterase Negative (Negative) Influenza Type A (PCR) (Not Detectd) Influenza Type B (PCR) (Not Detectd) RSV (PCR) (Not Detectd) SARS-CoV-2 (PCR) (Not Detectd) 04/06/24 04/06/24 04/06/24 Range/Units 12:50 12:50 12:50 WBC (3.8-10.6) k/uL RBC (3.80-5.40) m/uL Hgb (11.4-16.0) gm/dL Hct (34.0-46.0) % MCV (80.0-100.0) fL MCH (25.0-35.0) pg MCHC (31.0-37.0) g/dL RDW (11.5-15.5) % Plt Count (150-450) k/uL MPV Neutrophils % % Lymphocytes % % Monocytes % % Eosinophils % % Basophils % % Neutrophils # (1.3-7.7) k/uL Lymphocytes # (1.0-4.8) k/uL Monocytes # (0-1.0) k/uL Eosinophils # (0-0.7) k/uL Basophils # (0-0.2) k/uL PT (10.0-12.5) sec INR (<1.2) APTT (22.0-30.0) sec Sodium 140 (137-145) mmol/L Potassium 4.1 (3.5-5.1) mmol/L Chloride 104 (98-107) mmol/L Carbon Dioxide 27 (22-30) mmol/L Anion Gap 9 mmol/L BUN 14 (7-17) mg/dL Creatinine 0.60 (0.52-1.04) mg/dL Est GFR (CKD-EPI)AfAm >90 (>60 ml/min/1.73 sqM) Est GFR (CKD-EPI)NonAf 89 (>60 ml/min/1.73 sqM) Glucose 90 (74-99) mg/dL Plasma Lactic Acid Donte 1.2 (0.7-2.0) mmol/L Calcium 9.0 (8.4-10.2) mg/dL Magnesium 2.0 (1.6-2.3) mg/dL Total Bilirubin 1.0 (0.2-1.3) mg/dL AST 33 (14-36) U/L ALT 20 (4-34) U/L Alkaline Phosphatase 48 (38-126) U/L Total Protein 7.0 (6.3-8.2) g/dL Albumin 4.1 (3.5-5.0) g/dL Urine Color Urine Appearance (Clear) Urine pH (5.0-8.0) Ur Specific [place] (1.001-1.035) Urine Protein (Negative) Urine Glucose (UA) (Negative) Urine Ketones (Negative) Urine Blood (Negative) Urine Nitrite (Negative) Urine Bilirubin (Negative) Urine Urobilinogen (<2.0) mg/dL Ur Leukocyte Esterase (Negative) Influenza Type A (PCR) Not Detected (Not Detectd) Influenza Type B (PCR) Not Detected (Not Detectd) RSV (PCR) Not Detected (Not Detectd) SARS-CoV-2 (PCR) Not Detected (Not Detectd) Disposition Clinical Impression: Gravely disabled Disposition: ADMITTED IP TO THIS [facility] Condition: Fair Referrals: Chris Ciacedo DO [Primary Care Provider] - 1-2 days Decision Time: 15:42
[2024-04-06 13:08] LABS: Basophils % (A) 0 %; Eosinophils # (A) 0.2 k/uL (0-0.7); Eosinophils % (A) 2 %; HCT 39.6 % (34.0-46.0); HGB 13.1 gm/dL (11.4-16.0); Lymphocytes # (A) 0.9 k/uL (1.0-4.8); Lymphocytes % (A) 11 %; MCH 28.9 pg (25.0-35.0); MCHC 33.1 g/dL (31.0-37.0); MCV 87.1 fL (80.0-100.0); Mean Platelet Volume 7.6; Monocytes # (A) 0.4 k/uL (0-1.0); Monocytes % (A) 5 %; Neutrophils # (A) 6.3 k/uL (1.3-7.7); Neutrophils % (A) 80 %; Platelet Count 179 k/uL (150-450); RBC 4.55 m/uL (3.80-5.40); RDW 13.4 % (11.5-15.5); WBC 7.8 k/uL (3.8-10.6)
[2024-04-06 13:09] LABS: Appearance,Urine Clear (Clear); Bilirubin,Urine Negative (Negative); Blood,Urine Negative (Negative); Color,Urine Colorless; Glucose,Urine (UA) Negative (Negative); Ketones,Urine Negative (Negative); Leukocyte Esterase,Urine Negative (Negative); Nitrite,Urine Negative (Negative); PH, Urine 5.5 (5.0-8.0); Protein,Urine Negative (Negative); Specific Gravity,Urine 1.011 (1.001-1.035); Urobilinogen,Urine <2.0 mg/dL (<2.0)
[2024-04-06 13:20] LABS: ALT 20 U/L (4-34); African American GFR (CKD) >90 (>60 ml/min/1.73 sqM); Albumin 4.1 g/dL (3.5-5.0); Anion Gap 9 mmol/L; Blood Urea Nitrogen 14 mg/dL (7-17); Carbon Dioxide 27 mmol/L (22-30); Chloride 104 mmol/L (98-107); Glucose 90 mg/dL (74-99); Non-African American GFR(CKD) 89 (>60 ml/min/1.73 sqM); Sodium 140 mmol/L (137-145)
[2024-04-06 13:23] LABS: AST 33 U/L (14-36); Alkaline Phosphatase 48 U/L (38-126); Potassium 4.1 mmol/L (3.5-5.1)
--- NOTE | 2024-04-06 13:35 | XR ---
EXAMINATION TYPE: XR Hip Bilateral Complete DATE OF EXAM: 04/06/2024 1:23 PM COMPARISON: 03/31/2024 CLINICAL INDICATION: Female, 78 years old with history of fall, pain TECHNIQUE: 2 view(s) obtained each. FINDINGS: Left hip: Femoral head articulates with the acetabulum. Joint space is preserved. No acute fracture o r dislocation evident. Right hip: Femoral head articulates with the acetabulum. Joint space is preserved. No acute fracture or dislocation evident. IMPRESSION: 1. No acute osseous abnormalities bilateral hips [facility], , 04/06/2024 1:32 PM
--- NOTE | 2024-04-06 13:40 | CT ---
EXAMINATION TYPE: CT brain wo con DATE OF EXAM: 04/06/2024 1:23 PM COMPARISON: 03/26/2024 CLINICAL INDICATION: Female, 78 years old with history of seizure, fall, fall/ seizure TECHNIQUE: Brain: Axial CT images of the brain were obtained with coronal and sagittal reformats created and rev iewed. Contrast used: None. Oral contrast used: None. CT DLP: 1094.3 mGycm, Automated exposure control for dose reduction was used. FINDINGS: Brain: Extra-axial spaces: No abnormal extra-axial fluid collections. Ventricular system: Dilatation in proportion to cerebral atrophy. Cerebral parenchyma: Cerebral atrophy. No acute intraparenchymal hemorrhage or mass effect. The steen -white junction is well differentiated. Scattered hypoattenuating areas are seen within the white mat ter. Cerebellum: Unremarkable. Mass effect: No evidence of midline shift. Intracranial vasculature: Atherosclerotic calcifications of the intracranial vessels. Soft tissues: Normal. Calvarium/osseous structures: No depressed skull fracture. Paranasal sinuses and mastoid air cells: Mild scattered paranasal sinus disease. Visualized orbits: Bilateral aphakia IMPRESSION: 1. No acute intracranial process. 2. Nonspecific white matter changes, likely secondary to chronic small vessel ischemic disease. [facility], , 04/06/2024 1:37 PM
[2024-04-06 13:44] LABS: Influenza A Not Detected (Not Detectd); Influenza B Not Detected (Not Detectd); RSV Not Detected (Not Detectd)
[2024-04-06 14:31] LABS: INR 0.9 (<1.2)
[2024-04-06 14:34] LABS: Partial Thromboplastin Time 21.8 sec (22.0-30.0)
[2024-04-06] MEDS ORDERED: NALOXONE 0.4 MG/ML 1 ML VIAL IV PRN (15:39)
[2024-04-06] MEDS ORDERED: DEXTROSE 50% SYRINGE 50 ML IVP PRN ×4 (16:00→20:04)
[2024-04-06] MEDS: SODIUM CHLORIDE 0.9% 1,000 ML IV SCH (16:08)
[2024-04-06] MEDS: HYDROcodone/APAP 5-325MG 1 EACH TAB PO STA (16:18)
[2024-04-06 16:39] LABS: Glucose,Whole Blood 250 mg/dL (70-110)
[2024-04-06] MEDS: INSULIN ASPART (NovoLOG) 100 UNIT/ML VIAL SQ SCH ×2 (17:18→21:32)
--- NOTE | 2024-04-06 17:21 | P.HPIM ---
History of Present Illness H&P Date: 04/06/24 Patient is a 78-year-old female with history of type 2 diabetes, CVA/TIA, CAD, asthma, GERD, dyslipidemia, hypertension presenting with bilateral lower extremity weakness, more pronounced on the right. She claims that she has been having back pain and lower extremity weakness for almost 2 years. She had a epidural injection less than 2 weeks ago, and then sustained a fall after that. She presented to the ED at that time and had a staple placed on the back of her head. She has been ambulating with a walker at baseline, this morning she had difficulty getting out of the bed partly because she was feeling lightheaded and also she felt profoundly weak in her lower extremities more so on the right side. She denies any fevers, chills, abdominal pain, nausea, vomiting, urinary or bowel complaints. In the ED, temperature was 98.3, pulse 92, respiratory rate 16, blood pressure 172/73, saturating at 93% on room air. Head CT did not show any acute process. Hip x-rays did not show any acute process. EKG independently interpreted, shows normal sinus rhythm. WBC 7.8, hemoglobin 13.1, platelet 179, sodium 140, potassium 4.1, creatinine 0.6, urinalysis negative, respiratory viral panel negative. Magnesium 2.0. Patient being admitted as observation for further workup for weakness. Pertinent positives and negatives as discussed in HPI, a complete review of systems was performed and all other systems are negative. Patient seen and examined at bedside. Vital signs reviewed General: nontoxic, no distress, appears at stated age Derm: warm, dry Head: atraumatic, normocephalic, symmetric Eyes: EOMI, no lid lag, anicteric sclera, pupils equal round reactive to light ENT: Nose and ears atraumatic Neck: No thyromegaly, supple Mouth: no lip lesion, mucus membranes moist Cardiovascular: S1S2 reg, no murmur, no edema Lungs: clear to auscultation bilateral, no rhonchi, no rales, no wheeze, no accessory muscle use Abdominal: soft, nontender to palpation, no guarding, no appreciable organomegaly Ext: no gross muscle atrophy, muscle strength muscle strength 3 out of 5 in right lower extremities and 4/5 in left lower, negative leg raise test, no contractures Neuro: CN II-XII grossly intact Psych: Alert, oriented, appropriate affect Assessment/Plan: Active: Right lower extremity weakness Generalized weakness Presyncope Debility -Given recent epidural injection, right lower extremity weakness, will get CT lumbar spine with contrast -Orthostatic vitals ordered -Consult neurology -CT head without contrast ordered -B12, TSH ordered -PT/OT -hired worker consult Type 2 diabetes -Monitor blood glucose ACHS, using on insulin pump, monitor for hypoglycemia Chronic: Hypertension Dyslipidemia CAD GERD Seizure disorder Depression/anxiety Asthma, not in exacerbation The patient is admitted with an anticipated less than 2 midnight stay as observation status for evaluation of debility. Surrogate decision-maker: Daughter CODE STATUS: Full code DVT prophylaxis: Lovenox Anticipated discharge date: Pending clinical course Anticipated discharge place: Pending clinical course A total of 58 minutes was spent on the care of this complex patient more than 50% of the time was spent in counseling and care coordination. 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, IDDM type II, neuropathy bilateral feet, RLS, chronic cervical pain, osteoporosis, narcolepsy, hiatal hernia, diverticular disease, IBS, stress urine incontinence, lichens sclerosis, falls, asthma History of Any Multi-Drug Resistant Organisms: None Reported Past Surgical History: Appendectomy, Breast Surgery, Cholecystectomy, Heart Catheterization, Hernia Repair, Hysterectomy, Orthopedic Surgery Additional Past Surgical History / Comment(s): 06/24/18 Cervical fusions C4-C5/C5-C6/C6-C7 at [facility],01/2019 Lower back surgery at [facility] R breast benign lumpectomy, cardiac cath showed mild disease, umbilical hernia repair, D&C, bilateral cataract removals, EGD, colonoscopy with benign polyp, cystocele, rectocele, vuvular bx, liver bx d/t elevated LFT. Past Anesthesia/Blood Transfusion Reactions: No Reported Reaction Past Psychological History: Anxiety, Depression Smoking Status: Never smoker Past Alcohol Use History: None Reported Past Drug Use History: None Reported - Past Family History Mother Family Medical History: Hyperlipidemia, Hypertension Additional Family Medical History / Comment(s): ANEMIA Father Family Medical History: Cancer, CVA/TIA, Diabetes Mellitus Additional Family Medical History / Comment(s): CVA, kidney cancer. Medications and Allergies Home Medications Medication Instructions Recorded Confirmed Type Atorvastatin [Lipitor] 80 mg PO HS 03/21/14 04/06/24 History Pantoprazole Sodium [Protonix] 40 mg PO DAILY 03/21/14 04/06/24 History Pramipexole Di-HCl [Mirapex] 1.5 mg PO HS 03/21/14 04/06/24 History Montelukast [Singulair] 10 mg PO HS 04/11/15 04/06/24 History INSULIN LISPRO (For Pump) [humaLOG See Protocol SQ-PUMP CONTINUOUS 06/30/19 04/06/24 History (For Pump)] Cholestyramine (with Sugar) 4 gm PO DAILY 05/29/21 04/06/24 History [Cholestyramine Packet] Dicyclomine [Bentyl] 10 mg PO QID PRN 05/29/21 04/06/24 History Ergocalciferol [Vitamin D2 (1250 1,250 mcg PO TU 05/29/21 04/06/24 History Mcg = 38692 Iu)] Baclofen [Lioresal] 10 mg PO HS 12/23/23 04/06/24 History Escitalopram [Lexapro] 20 mg PO DAILY 12/23/23 04/06/24 History Ezetimibe [Zetia] 10 mg PO DAILY 12/23/23 04/06/24 History Lacosamide [Vimpat] 200 mg PO BID 12/23/23 04/06/24 History Pregabalin [Lyrica] 50 mg PO TID 12/23/23 04/06/24 History hydroCHLOROthiazide [Hydrodiuril] 25 mg PO DAILY 12/23/23 04/06/24 History Albuterol Sulfate [Albuterol 2 puff INHALATION RT-QID PRN 04/06/24 04/06/24 History Sulfate Hfa] HYDROcodone/APAP 7.5-325MG [[place] 1 tab PO BID PRN 04/06/24 04/06/24 History 7.5-325] OXcarbazepine [Trileptal] 300 mg PO BID 04/06/24 04/06/24 History Allergies Allergy/AdvReac Type Severity Reaction Status Date / Time aspirin Allergy Swelling Verified 04/06/24 12:00 ibuprofen Allergy Swelling Verified 04/06/24 12:00 ipratropium bromide Allergy Swelling Verified 04/06/24 12:00 [From Atrovent] meperidine HCl [From Demerol] Allergy Rash/Hives Verified 04/06/24 12:00 metformin Allergy Swelling Verified 04/06/24 12:00 nickel Allergy Rash/Hives Verified 04/06/24 12:00 hydromorphone HCl AdvReac Nausea & Verified 04/06/24 12:00 [From Dilaudid] Vomiting morphine AdvReac Vomiting Verified 04/06/24 12:00 trazodone AdvReac Weakness Verified 04/06/24 12:00 zolpidem tartrate AdvReac Hallucinati Verified 04/06/24 12:00 [From Ambien] ons MSG Allergy Rash/Hives Uncoded 04/06/24 12:00 Physical Exam Vitals: Vital Signs Temp Pulse Resp BP Pulse Ox 04/06/24 15:40 70 16 159/75 95 04/06/24 11:55 98.3 F 92 16 172/73 93 L Intake and Output 04/06/24 04/06/24 04/06/24 06:59 14:59 22:59 Other: Weight 75.296 kg Results CBC & Chem 7: 04/06/24 12:50 04/06/24 12:50 Labs: Abnormal Lab Results - Last 24 Hours (Table) 04/06/24 04/06/24 Range/Units 12:50 12:50 Lymphocytes # 0.9 L (1.0-4.8) k/uL APTT 21.8 L (22.0-30.0) sec
[2024-04-06] MEDS: LACOSAMIDE 50 MG TABLET PO SCH (20:40)
[2024-04-06] MEDS: MONTELUKAST 10 MG TAB PO SCH (20:41)
[2024-04-06] MEDS: PRAMIPEXOLE 1 MG TAB PO SCH (20:41)
[2024-04-06] MEDS: OXcarbazepine 300 MG TAB PO SCH (20:41)
[2024-04-06] MEDS: ATORVASTATIN 80 MG TAB PO SCH (20:41)
[2024-04-06] MEDS: PREGABALIN 50 MG CAP PO SCH (20:41)
[2024-04-06] MEDS: BACLOFEN 10 MG TAB PO SCH (20:42)
[2024-04-06 21:32] LABS: Glucose,Whole Blood 251 mg/dL (70-110)
--- NOTE | 2024-04-06 21:58 | CT ---
EXAMINATION TYPE: CT lumbar spine w con DATE OF EXAM: 04/06/2024 9:19 PM COMPARISON: None. CLINICAL INDICATION: Female, 78 years old with history of back pain, leg weakness, recent epidural in jection, bilateral leg weakness, pain TECHNIQUE: CT of the lumbar spine is performed on a spiral scan at 3 mm thick sections. Reconstructed images are performed in the coronal and sagittal planes. Contrast used:100 mL of Isovue 300 with IV Contrast, (none if empty) Oral contrast used: (none if empty) CT DLP: 1146.7 mGycm, Automated exposure control for dose reduction was used. FINDINGS: T12-L1: No focal disc herniation or significant disc bulge is evident. No spinal canal stenosis or neural foraminal stenosis is present. L1-L2: Vacuum disc phenomenon is present. No focal disc herniation is evident. Some mild disc bulge w ith calcification of the posterior disc space is evident. No spinal canal stenosis. L2-L3: Vacuum disc phenomenon is present. Broad-based disc bulges mild anterior thecal sac impression . Ligamentum flavum laxity is present with some posterior lateral thecal sac compression. Mild canal narrowing may be present. Moderate bilateral foraminal narrowing is present L3-L4: Vacuum disc phenomenon is present. There is broad-based disc bulge with moderate anterior thec al sac compression. Facet hypertrophy is present. No spinal canal stenosis is present. Moderate bilat eral foraminal narrowing is present L4-L5: There is loss of disc height to this level. Vacuum disc phenomenon is present within the resid ual disc. No AP spinal canal stenosis present. Facet hypertrophy is present. Moderate to severe bilat eral foraminal narrowing is present L5-S1: Mild disc bulge is present. No AP spinal canal stenosis present. Facet hypertrophy is present. Moderate bilateral foraminal narrowing is present. Vertebral alignment appears normal. IMPRESSION: 1. Multilevel degenerative disc changes. Greatest loss of disc height is present L4-5 sclerotic endpl ate changes. 2. Mild residual disc bulging with multilevel vacuum disc phenomenon. No spinal canal stenosis presen t. 3. Multilevel foraminal narrowing. This appears greatest at L4-5 which is moderate to severe. More mo derate foraminal narrowing is present L2-3 L3-4 bilaterally. [facility], , 04/06/2024 9:56 PM
[2024-04-07 01:03] LABS: Glucose,Whole Blood 161 mg/dL (70-110)
[2024-04-07] MEDS: ALBUTEROL NEBULIZED 2.5 MG/3 ML INHALATION PRN (02:17)
[2024-04-07] MEDS: HYDROcodone/APAP 7.5-325MG 1 EACH TAB PO PRN (05:04)
[2024-04-07] MEDS: PANTOPRAZOLE 40 MG TABLET PO SCH (06:22)
[2024-04-07 06:28] LABS: Glucose,Whole Blood 255 mg/dL (70-110)
[2024-04-07] MEDS: CHOLESTYRAMINE (WITH SUGAR) 4 GM PACKET PO SCH (08:34)
[2024-04-07] MEDS: ESCITALOPRAM 20 MG TAB PO SCH (08:38)
[2024-04-07] MEDS: hydroCHLOROthiazide 25 MG TAB PO SCH (08:39)
[2024-04-07] MEDS: ENOXAPARIN 40 MG/0.4 ML SYRINGE SQ SCH (08:39)
[2024-04-07] MEDS: EZETIMIBE 10 MG TAB PO SCH (08:39)
[2024-04-07 11:45] LABS: Glucose,Whole Blood 272 mg/dL (70-110)
--- NOTE | 2024-04-07 12:48 | P.CNOR ---
History of Present Illness - [facility] Consult date: 04/07/24 Consult reason: other History of present illness: Patient is a 78-year-old female who presented in regards to weakness in her lower extremities and difficulty getting around. She says she has a long-term history of low back pain and lumbar issues with lower extremity radicular issues. She had been seen in the past and was found to have significant degenerative changes and spondylosis at her lumbar spine. She began conservative treatment through our office at the end of last year and into this year. She has been seeing interventional pain management with Dr. Quiroz. She had an epidural steroid injection at the beginning of March and had good improvement in her symptoms. She said that she had been doing well for the past 2 weeks until yesterday where she was unable to get out of bed and had weakness at her right leg. She said she started taking Jardiance at the beginning of this month as well. She feels that she has been having worsening pain since starting taking her Jardiance as well. That she has since stopped as per her primary care doctor. She denies any new pain. She denies any change in bowel bladder function. She denies any chest pain. She has history of chronic headaches and has had occipital injections with Dr. Alonso in the past. She denies any changes in her speech or vision. Denies any new upper extremity issues. Review of Systems As stated per HPI. She said that she felt she had good benefit with her epidural steroid injection a few weeks ago. She has been having some gradual worsening of her symptoms but there was a significant change yesterday with weakness in her right leg to where she presented to the hospital. Past Medical History Past Medical History: Asthma, Coronary Artery Disease (CAD), CVA/TIA, Diabetes Mellitus, GERD/Reflux, Hyperlipidemia, Hypertension, Osteoarthritis (OA), Pneumonia, Seizure Disorder Additional Past Medical History / Comment(s): cva affected rt side pt states regained most strength to rt arm/hand and R leg, IDDM type II, neuropathy bilateral feet, RLS, chronic cervical pain, osteoporosis, narcolepsy, hiatal hernia, diverticular disease, IBS, stress urine incontinence, lichens sclerosis, falls, asthma History of Any Multi-Drug Resistant Organisms: None Reported Past Surgical History: Appendectomy, Back Surgery, Breast Surgery, Cholecystectomy, Heart Catheterization, Hernia Repair, Hysterectomy, Orthopedic Surgery Additional Past Surgical History / Comment(s): 06/24/18 Cervical fusions C4-C5/C5-C6/C6-C7 at [facility],01/2019 Lower back surgery at [facility] R breast benign lumpectomy, cardiac cath showed mild disease, umbilical hernia repair, D&C, bilateral cataract removals, EGD, colonoscopy with benign polyp, cystocele, rectocele, vuvular bx, liver bx d/t elevated LFT. Past Anesthesia/Blood Transfusion Reactions: No Reported Reaction Past Psychological History: Anxiety, Depression Additional Psychological History / Comment(s): Pt resides with her spouse. She has a cane, walker and wheelchair. She no longer drives d/t narcolepsy, her spouse drives. Smoking Status: Never smoker Past Alcohol Use History: None Reported Past Drug Use History: None Reported - Past Family History Mother Family Medical History: Hyperlipidemia, Hypertension Additional Family Medical History / Comment(s): ANEMIA Father Family Medical History: Cancer, CVA/TIA, Diabetes Mellitus Additional Family Medical History / Comment(s): CVA, kidney cancer. Medications and Allergies Home Medications Medication Instructions Recorded Confirmed Type Atorvastatin [Lipitor] 80 mg PO HS 03/21/14 04/06/24 History Pantoprazole Sodium [Protonix] 40 mg PO DAILY 03/21/14 04/06/24 History Pramipexole Di-HCl [Mirapex] 1.5 mg PO HS 03/21/14 04/06/24 History Montelukast [Singulair] 10 mg PO HS 04/11/15 04/06/24 History INSULIN LISPRO (For Pump) [humaLOG See Protocol SQ-PUMP CONTINUOUS 06/30/19 04/06/24 History (For Pump)] Cholestyramine (with Sugar) 4 gm PO DAILY 05/29/21 04/06/24 History [Cholestyramine Packet] Dicyclomine [Bentyl] 10 mg PO QID PRN 05/29/21 04/06/24 History Ergocalciferol [Vitamin D2 (1250 1,250 mcg PO TU 05/29/21 04/06/24 History Mcg = 23111 Iu)] Baclofen [Lioresal] 10 mg PO HS 12/23/23 04/06/24 History Escitalopram [Lexapro] 20 mg PO DAILY 12/23/23 04/06/24 History Ezetimibe [Zetia] 10 mg PO DAILY 12/23/23 04/06/24 History Lacosamide [Vimpat] 200 mg PO BID 12/23/23 04/06/24 History Pregabalin [Lyrica] 50 mg PO TID 12/23/23 04/06/24 History hydroCHLOROthiazide [Hydrodiuril] 25 mg PO DAILY 12/23/23 04/06/24 History Albuterol Sulfate [Albuterol 2 puff INHALATION RT-QID PRN 04/06/24 04/06/24 History Sulfate Hfa] HYDROcodone/APAP 7.5-325MG [Sidney 1 tab PO BID PRN 04/06/24 04/06/24 History 7.5-325] OXcarbazepine [Trileptal] 300 mg PO BID 04/06/24 04/06/24 History Allergies Allergy/AdvReac Type Severity Reaction Status Date / Time aspirin Allergy Swelling Verified 04/06/24 12:00 ibuprofen Allergy Swelling Verified 04/06/24 12:00 ipratropium bromide Allergy Swelling Verified 04/06/24 12:00 [From Atrovent] meperidine HCl [From Demerol] Allergy Rash/Hives Verified 04/06/24 12:00 metformin Allergy Swelling Verified 04/06/24 12:00 nickel Allergy Rash/Hives Verified 04/06/24 12:00 hydromorphone HCl AdvReac Nausea & Verified 04/06/24 12:00 [From Dilaudid] Vomiting morphine AdvReac Vomiting Verified 04/06/24 12:00 trazodone AdvReac Weakness Verified 04/06/24 12:00 zolpidem tartrate AdvReac Hallucinati Verified 04/06/24 12:00 [From Ambien] ons MSG Allergy Rash/Hives Uncoded 04/06/24 12:00 Physical Examination Osteopathic Statement: *. No significant issues noted on an osteopathic structural exam other than those noted in the History and Physical/Consult. - L Spine: dermatomal strength & reflexes right Strength: hip flexion: 4/5 (Her right lower extremity is nontender to palpation. She has about 4 out of 5 hip flexion on the right compared to the left. No pain with internal extra rotation of her hips. 5 out of 5 strength with dorsiflexion plantarflexion at her foot. No hyperreflexia) Results - Labs Labs: Abnormal Lab Results - Last 24 Hours (Table) 04/06/24 04/06/24 04/06/24 Range/Units 12:50 12:50 16:38 Lymphocytes # 0.9 L (1.0-4.8) k/uL APTT 21.8 L (22.0-30.0) sec POC Glucose (mg/dL) 250 H (70-110) mg/dL Hemoglobin A1c (<=6.0) % 04/06/24 04/07/24 04/07/24 Range/Units 21:29 01:00 06:26 Lymphocytes # (1.0-4.8) k/uL APTT (22.0-30.0) sec POC Glucose (mg/dL) 251 H 161 H 255 H (70-110) mg/dL Hemoglobin A1c (<=6.0) % 04/07/24 04/07/24 Range/Units 06:36 11:43 Lymphocytes # (1.0-4.8) k/uL APTT (22.0-30.0) sec POC Glucose (mg/dL) 272 H (70-110) mg/dL Hemoglobin A1c 7.1 H (<=6.0) % H & H 04/06/24 Range/Units 12:50 Hgb 13.1 (11.4-16.0) gm/dL Hct 39.6 (34.0-46.0) % Coagulation 04/06/24 Range/Units 12:50 INR 0.9 (<1.2) Result Diagrams: 04/06/24 12:50 04/06/24 12:50 - Diagnostic results CT Scan - lumbar: report reviewed, image reviewed (Her lumbar CT scan is reviewed. She has multilevel disc degeneration and vacuum disc phenomenon. She has multilevel evidence of central and bilateral foraminal stenosis particular at L2-3 L3-4 and L4-5. There is no new fracture.) Assessment and Plan Assessment: Right lower extremity weakness, with history of chronic right-sided weakness from prior CVA Degenerative disc disease with spinal stenosis and spondylosis of the lumbar spine Right lower extremity radiculopathy Frequent falls Difficulty ambulating Multiple medical history Plan: Right lower extremity weakness, with history of chronic right-sided weakness from prior CVA Degenerative disc disease with spinal stenosis and spondylosis of the lumbar spine Right lower extremity radiculopathy Frequent falls Difficulty ambulating Multiple medical history The patient has multiple levels of spinal stenosis of the lumbar spine with de generative disc changes and facet arthrosis. Some of her symptoms at her low back and her leg stem from her lumbar spine. She has had some benefit with interventional pain management somewhat recently and could have further benefit with this. We will have pain management see her to continue the possibility of epidural steroid injections. Patient is interested in pursuing this as she is happy with result several weeks ago. Continuing in her series of injections may give her more long-term relief if she is able to pursue them. Will have pain management see her. She has a prescription for physical therapy and I think she can initiate her therapy exercises here in the hospital. Will have physical therapy see her for mobilization and ambulation and transfers. It is difficult to fully determine if her symptoms at her extremity stem completely from her lumbar spine. Certainly she has issues at her lumbar spine but would like to see how she does with dedicated conservative treatment and continue conservative management for now. The patient is not interested in surgical intervention and we will continue conservative care for now. Will continue to follow her along with you. She should continue her medical management from [facility].
[2024-04-07] MEDS ORDERED: ACETAMINOPHEN TAB 325 MG TAB PO PRN (15:54)
--- NOTE | 2024-04-07 16:04 | P.PN ---
Subjective Progress Note Date: 04/07/24 Hospital course: Patient is a pleasant 78-year-old female with a past medical history of chronic back pain recently underwent epidural injection, type 2 diabetes, CVA with right-sided deficits, CAD, asthma, GERD, dyslipidemia, and hypertension. She presented to the emergency department on 04/06/2024 with a chief complaint of bilateral lower extremity weakness worse on right. Upon arrival to our facility, patient underwent evaluation in the emergency department. Vital signs upon arrival show blood pressure 172/73, heart rate 92, respiratory rate 16, temp 98.3 F, and SpO2 of 93% on room air. She was completed showing normal sinus rhythm at [address] brain was negative for acute intercranial process. X-ray bilateral hips negative for acute osseous abnormalities. Labs were completed and reviewed. CBC unremarkable. Coagulation profile showing a low PTT of 21.8 otherwise normal findings. BMP unremarkable. Blood glucose 98. Lactic acid 1.2. Calcium 9.0. Magnesium 2.0. Liver profile unremarkable. Vitamin B12 433 and TSH normal findings at 0.569. Urinalysis negative for infection. Influenza A, influenza B, RSV, and COVID PCR were negative. Patient admitted under our services with consultation to neurology. CT lumbar spine was completed showing multilevel degenerative disc changes, mild residual disc bulging with multilevel vacuum disc phenomenon, and multilevel foraminal narrowing greatest at L4-L5 which is moderate to severe. Consult placed to orthopedic surgeon for evaluation. Physical exam: Patient seen and fully evaluated at bedside this morning. She reports left lower extremity weakness is resolved and states right lower extremity is weaker than baseline but improved since arrival to our facility. She denies having any other complaints, concerns, or needs at this time. Vital signs reviewed and stable. General: Nontoxic, no distress and appears stated age. Derm: Skin warm and dry, normal coloration for ethnicity. Head: Atraumatic, normocephalic and symmetric. Eyes: EOM's intact, no lid lag, and anicteric sclera Mouth: no lip lesions, mucus membranes moist Cardiovascular: regular rate and rhythm with normal S1S2, no murmur, positive posterior tibial pulses bilaterally, and cap refill < 2 seconds. Lungs: Respirations even, regular, and unlabored on room air. Lungs CTA bilaterally, no rhonchi, no rales, no wheezing, and no accessory muscle usage. Abdominal: soft, nontender to palpation, no guarding, no appreciable organomegaly Ext: ROM intact. No gross muscle atrophy, no edema, no contractures Neuro: Speech clear, face symmetrical and CN II-XII grossly intact with no noted focal neuro deficits Psych: Alert and oriented to person, place, time, and situation. Appropriate and pleasant affect. Assessment and Plan of Care: Acute on chronic right lower extremity weakness History of CVA with right-sided residual deficits. Chronic lower back pain Hypertension Hyperlipidemia History of CAD -Neurology consulted, appreciate recommendations -Orthospine surgery consulted, appreciate recommendations. -PT/OT consulted. -Maintain fall precautions -Continue daily medication regimen with atorvastatin 80 mg nightly, Plavix 75 mg daily, Zetia 10 mg nightly. -Continue pain management with Tylenol 650 mg every 6 hours as needed for mild pain, [place] 5/325 mg tablets every 4 hours as needed for moderate pain, baclofen 10 mg nightly, and Lyrica 50 mg 3 times daily. -Neurochecks every 4 hours -Telemetry monitoring Type 2 insulin-dependent diabetes mellitus with hyperglycemia -Patient's son took patient's personal insulin pump at home. Patient placed on glycemic protocol with NovoLog sliding scale throughout hospitalization. Data and imaging reviewed: Labs reviewed. CBC unremarkable. Coagulation profile showing a low PTT of 21.8 otherwise normal findings. BMP unremarkable. Blood glucose 98. Lactic acid 1.2. Calcium 9.0. Magnesium 2.0. Liver profile unremarkable. Vitamin B12 433 and TSH normal findings at 0.569. CT lumbar spine was completed showing multilevel degenerative disc changes, mild residual disc bulging with multilevel vacuum disc phenomenon, and multilevel foraminal narrowing greatest at L4-L5 which is moderate to severe. Consult placed to orthopedic surgeon for evaluation. Vital signs reviewed. Blood pressure 116/70, heart rate 81, respiratory rate 16, temp 99.0 F, and SpO2 of 96% on room air. CODE STATUS: Full Code DVT prophylaxis: Lovenox Anticipated discharge date: Pending clinical course, likely [address]: Home versus SNF Patient was seen independently by Nurse Pracitioner. This document was prepared using [employer] dictation software. Please allow for errors in security support analyst, while rare they do occur. Emory De La Vega NP rendered care for this patient independently, reviewed the findings and plan as documented in the note above and agree with plan. I did not physically speak with or examine the patient on this date. Objective - Vital Signs Vital signs: Vital Signs Temp 97.8 F 04/07/24 00:56 Pulse 85 04/07/24 02:26 Resp 14 04/07/24 00:56 BP 121/76 04/07/24 00:56 Pulse Ox 97 04/07/24 00:56 FiO2 Intake & Output 04/06/24 04/07/24 04/07/24 18:59 06:59 18:59 Intake Total 1100 Balance 1100 Weight 75.296 kg 75.296 kg Intake: IV 20 Invasive Line 1 20 Oral 1080 Other: Voiding Method Bedside Commode Diaper # Voids 5 - Labs CBC & Chem 7: 04/06/24 12:50 04/06/24 12:50 Labs: Abnormal Lab Results - Last 24 Hours (Table) 04/06/24 04/06/24 04/06/24 Range/Units 12:50 12:50 16:38 Lymphocytes # 0.9 L (1.0-4.8) k/uL APTT 21.8 L (22.0-30.0) sec POC Glucose (mg/dL) 250 H (70-110) mg/dL 04/06/24 04/07/24 04/07/24 Range/Units 21:29 01:00 06:26 Lymphocytes # (1.0-4.8) k/uL APTT (22.0-30.0) sec POC Glucose (mg/dL) 251 H 161 H 255 H (70-110) mg/dL
[2024-04-07 16:40] LABS: Glucose,Whole Blood 325 mg/dL (70-110)
[2024-04-07] MEDS: CLOPIDOGREL 75 MG TAB PO SCH (17:04)
[2024-04-07] MEDS: MAG HYDROX/AL HYDROX/SIMETH 30 ML CUP PO PRN (17:52)
[2024-04-07 21:28] LABS: Glucose,Whole Blood 270 mg/dL (70-110)
[2024-04-07] MEDS: HYDROcodone/APAP 5-325MG 1 EACH TAB PO PRN (21:35)
[2024-04-08 06:07] LABS: Glucose,Whole Blood 295 mg/dL (70-110)
--- NOTE | 2024-04-08 07:58 | CA ---
Transthoracic Echo Report Name: Saira Juarez Age: 78 Gender: F : 1945 Exam Date: 04/07/2024 17:09 Exam Location: [place] [facility] Ht (in): 58 Wt (lb): 166 Ordering Physician: Juan Barboza MD Attending/Referring Phys: Railroad Inspector Annamaria Mason RDCS Procedure CPT: Indications: stroke/tia Cardiac Hx: Technical Quality: Good Contrast 1: Agitated Saline Total Dose (mL): 9 Contrast 2: Total Dose (mL): MEASUREMENTS (Male / Female) Normal Values 2D ECHO LV Diastolic Diameter PLAX 4.1 cm 4.2 - 5.9 / 3.9 - 5.3 cm LV Systolic Diameter PLAX 2.8 cm IVS Diastolic Thickness 1.1 cm 0.6 - 1.0 / 0.6 - 0.9 cm LVPW Diastolic Thickness 0.8 cm 0.6 - 1.0 / 0.6 - 0.9 cm LV Relative Wall Thickness 0.5 RV Internal Dim ED PLAX 3.1 cm LA Systolic Diameter LX 3.8 cm 3.0 - 4.0 / 2.7 - 3.8 cm LA Volume 41.0 cm??? 18 - 58 / 22 - 52 cm??? LA Volume Index 22.9 cm???/m??? 16 - 28 cm???/m??? M-MODE Aortic Root Diameter MM 2.5 cm DOPPLER AV Peak Velocity 195.6 cm/s AV Peak Gradient 15.3 mmHg MV Area PHT 3.9 cm??? Mitral E Point Velocity 109.7 cm/s Mitral A Point Velocity 125.0 cm/s Mitral E to A Ratio 0.9 MV Deceleration Time 192.4 ms TR Peak Velocity 262.7 cm/s TR Peak Gradient 27.6 mmHg Right Ventricular Systolic Press 32.2 mmHg FINDINGS Left Ventricle Left ventricular ejection fraction is estimated at 55-60 %. Left ventricular cavity size normal. Mildly increased septal wall thickness. Normal left ventricular wall motion. Right Ventricle Normal right ventricular size and function. Right ventricular systolic pressure within normal limits. Right Atrium Normal right atrial size. No right atrial thrombus or mass seen. Negative agitated saline bubble study for right to left shunt. Left Atrium Normal left atrial size. No left atrial thrombus or mass present. Mitral Valve Structurally normal mitral valve. Mild mitral regurgitation. Aortic Valve Trileaflet aortic valve. No aortic valve stenosis or regurgitation. Tricuspid Valve Structurally normal tricuspid valve. Mild tricuspid regurgitation. Pulmonic Valve Structurally normal pulmonic valve. No pulmonic regurgitation. Pericardium No pericardial effusion. Aorta Normal size aortic root and proximal ascending aorta. CONCLUSIONS Normal LV systolic function Mild mitral and tricuspid regurgitation Normal pulmonary artery systolic pressure No pericardial effusion Previewed by: Dr. Jagjit Grant MD (Electronically Signed) Final Date: 08 April 2024 07:56
[2024-04-08 09:44] LABS: HGB 12.7 gm/dL (11.4-16.0); MCH 29.6 pg (25.0-35.0); MCHC 33.4 g/dL (31.0-37.0); MCV 88.4 fL (80.0-100.0); Mean Platelet Volume 7.7; Platelet Count 151 k/uL (150-450); RDW 13.2 % (11.5-15.5); WBC 7.6 k/uL (3.8-10.6)
[2024-04-08 09:48] LABS: ALT 16 U/L (4-34); AST 14 U/L (14-36); African American GFR (CKD) 87 (>60 ml/min/1.73 sqM); Albumin 3.6 g/dL (3.5-5.0); Alkaline Phosphatase 67 U/L (38-126); Anion Gap 7 mmol/L; Blood Urea Nitrogen 18 mg/dL (7-17); Calcium 8.9 mg/dL (8.4-10.2); Carbon Dioxide 31 mmol/L (22-30); Chloride 98 mmol/L (98-107); Glucose 257 mg/dL (74-99); Non-African American GFR(CKD) 75 (>60 ml/min/1.73 sqM); Potassium 3.7 mmol/L (3.5-5.1); Sodium 136 mmol/L (137-145); Total Bilirubin 0.7 mg/dL (0.2-1.3); Total Protein 5.8 g/dL (6.3-8.2)
--- NOTE | 2024-04-08 09:51 | CT ---
EXAMINATION TYPE: CT angio head neck DATE OF EXAM: 04/07/2024 10:05 PM COMPARISON: 04/06/2024.. CLINICAL INDICATION: Female, 78 years old with history of Stroke/TIA; PHH, Stroke/TIA. TECHNIQUE: Axially acquired helical CT angiogram of the head and neck was obtained with contrast. Axi al images are supplemented with 3D reconstructions and MIP images which were post-processed at an in dependent workstation. NASCET criteria used. Contrast used:65 ml mL of Isovue 370 with IV Contrast, Oral contrast used: None. CT DLP: 409.7 mGycm, Automated exposure control for dose reduction was used. FINDINGS: CTA HEAD: No evidence of acute intracranial hemorrhage, mass effect, or midline shift. The ventricles, sulci, a nd cisterns are unremarkable. Bilaterally aphakia. Mild exophthalmos Vertebral arteries: The vertebral arteries are patent. Vertebral artery dominance: Codominant Basilar artery: The basilar artery is intact. The basilar artery bifurcation is normal. Internal Carotid arteries: The cervical, petrous, cavernous and supraclinoid segments are normal. HAILY: Patent with no evidence of aneurysm. ACOM: Present without evidence of aneurysm. Atrophic right M1 segment. MCA: Patent with no evidence of aneurysm. BEAD FLIPPER: Patent with no evidence of aneurysm. PCOM: Hypoplastic bilaterally. Dural sinuses: Patent. CTA NECK: Right Carotid System: The common carotid artery and external carotid artery are patent. The carotid bifurcation demonstrate s no evidence of hemodynamically significant stenosis. The remaining portions of the internal carotid artery demonstrate normal size without significant narrowing. Left Carotid System: The common carotid artery and external carotid artery are patent. The carotid bifurcation demonstrate s no evidence of hemodynamically significant stenosis. The remaining portions of the internal carotid artery demonstrate normal size without significant narrowing. Vertebral arteries are patent without evidence hemodynamically significant stenosis. There is a three-vessel aortic arch. The origins of the great vessels are patent. No evidence of hemo dynamically significant stenosis. Fixation hardware in the cervical spine appears intact. IMPRESSION: 1. No evidence of dissection of the cervical internal carotid arteries or vertebral arteries. 2. No any evidence of significant stenosis at the carotid bifurcations. 3. No evidence of intracranial high-grade stenosis or intracranial aneurysm. 4. Mild exophthalmos [facility], , 04/08/2024 9:49 AM
--- NOTE | 2024-04-08 09:59 | P.PAINPG ---
Objective - Vital Signs Vital signs: Vital Signs Temp 98.8 F 04/08/24 07:31 Pulse 82 04/08/24 08:32 Resp 24 04/08/24 07:31 BP 150/81 04/08/24 07:31 Pulse Ox 95 04/08/24 07:31 FiO2 Intake & Output 04/07/24 04/08/24 04/08/24 18:59 06:59 18:59 Other: Voiding Method Bedside Commode Bedside Commode Diaper Diaper # Voids 2 1 # Bowel Movements 1 1 - Labs CBC & Chem 7: 04/08/24 09:21 04/08/24 09:21 Labs: Abnormal Lab Results - Last 24 Hours (Table) 04/07/24 04/07/24 04/07/24 Range/Units 06:36 11:43 16:39 POC Glucose (mg/dL) 272 H 325 H (70-110) mg/dL Hemoglobin A1c 7.1 H (<=6.0) % 04/07/24 04/08/24 Range/Units 21:26 06:05 POC Glucose (mg/dL) 270 H 295 H (70-110) mg/dL Hemoglobin A1c (<=6.0) % PQRS Measure Charge Sheet Comment: HISTORY OF PRESENT ILLNESS: A 78 yr old inpatient female as a referral from Dr Luo presents today w severe and chronic LBP> 1 yr secondary to radiculopathy, spondylosis and facet arthropathy without myelopathy for evaluation. Pt states pain level is provoked at 8 /10 in intensity, constant, localized in the lumbar spine, predominantly axial, achy in character w occasional shooting pain towards the R thigh and knee. Pain is provoked by weight bearing. Pain is alleviated by medications (Boone 5/325mg, Tyl 650mg [id number] TID), repositioning and rest . PMH: OA, Asthma, CAD, CVA, NIDDM II, GERD, Hyperlipidemia, HTN, Seizure D isorder, IBS, RLS, MDD/ Anxiety PSH: C4-C7 Fusion (2019), Appendectomy, Back Surgery, Breast Lumpectomy, Cholecystectomy, Heart Catheterization, Umbilical Hernia Repair, D&C, Hysterectomy, BL Cataract Removals, EGD/ Colonoscopy w Polypectomy, Cystocoele, Rectocoele, Vulvar Biopsy, Liver Biopsy SH: Negative x3. Uses a cane and wheelchair FH: Mo- CAD. Fa- CVA, Renal CA, DM All: See list Meds: See list REVIEW OF ORGAN SYSTEMS: CONSTITUTIONAL: No fevers or chills. No recent weight loss. NEUROLOGICAL: + numbness and tingling along the distal extremities. No seizure disorders or headaches. MUSCULOSKELETAL: + pain PSYCHIATRIC: Denies current depression or suicidal thoughts. Physical Examinations : Constitutional : Cooperative , not in acute distress . Neurologic : Cranial nerve II to XII intact. No focal neurological deficits. Psychiatric : alert & oriented x 3. Matching mood & appropriate affect. Judgment & insight intact. Musculoskeletal : Cervical Spine Motor strength in the deltoid and biceps: Normal right side. Normal Left side Motor strength biceps and the wrist extensors: Normal right side . Normal left side Motor strength in the triceps muscle: Normal right side. Normal left side Deep tendon reflexes: Normal at the biceps. Normal at Brachioradialis. Normal at triceps Vertebral body tenderness to deep palpation over Cervical facet loading test: positive bilaterally Spurling test: positive bilaterally Neck distraction test: positive bilaterally Juan Jose sign: positive bilaterally Lumbar spine Motor strength lower extremities ,thigh and legs 5/5 Right side , 5/5 Left side Deep tendon reflexes : Normal Knee Jerk. Normal Ankle Jerk Vertebral body tenderness over L4 Katz Test positive R> L L3-L4/ L4-L5 Lumbar facet Loading Test: positive Right / positive Left Range of motion of the lumbar spine Flexion 30 degrees, extension 10 degrees Straight Leg Raise test: Left/ Right positive at degrees Gisella test: positive right / positive left. Severe tenderness over the Sacroiliac joint on the Right / Left sides Gaenslen test: positive bilaterally Seated flexion test: positive bilateral ly. Sacral spine : Severe tenderness over the Sacroiliac joint: right side / left side Range of motion: Flexion of the lumbar spine <60 degrees Range of motion: Extension of the lumbar spine <20 degrees Gaenslen's Test positive Gisella test: positive right side / left side Thigh Thrust Test Sacral Thrust Test Imaging: CT non contrast of lumbar spine reviewed Assessment/ Plan : Multi level DDD w disc phenomenon Recommendation of R TFESI L3-L4/ L4-L5 #1. Risks, benefits of procedure discussed and patient verbalized understanding. Hold Lovenox 1 day prior to procedure. Protocol for discontinuation/ continuation of medications jules procedure discussed. All questions answered. I have spent greater than 30 minutes on patient care today. Dr Magana was available by phone for the evaluation of this patient. The time was used to review the medical records including relevant urine studies and Prescription history (MAPs), review of the available imaging, evaluation and examination of the patient, coordination of care with the medical staff and if applicable referring physicians, as well as creation of the medical record - Pain Location Head Non-Pharmacological Interventions: Darkened Room, Distraction, Reduce Environmental Stimuli Pharmacological Interventions: Discuss Pain Med Options, PRN Medication Pain Comment: Patient denies pain at this time PQRS Narrative: Smoking Status Never smoker Blood Pressure [Supine] 150/81 Blood Pressure 145/76 Pain Intensity [Head] 6 Pain Intensity 3 Pain Scale Used Numeric (1 - 10) Scale Used Numeric (1 - 10) Home Medications: Ambulatory Orders Atorvastatin [Lipitor] 80 mg PO HS 03/21/14 Pantoprazole Sodium [Protonix] 40 mg PO DAILY 03/21/14 Pramipexole Di-HCl [Mirapex] 1.5 mg PO HS 03/21/14 Montelukast [Singulair] 10 mg PO HS 04/11/15 INSULIN LISPRO (For Pump) [humaLOG (For Pump)] See Protocol SQ-PUMP CONTINUOUS 06/30/19 Cholestyramine (with Sugar) [Cholestyramine Packet] 4 gm PO DAILY 05/29/21 Dicyclomine [Bentyl] 10 mg PO QID PRN 05/29/21 Ergocalciferol [Vitamin D2 (1250 Mcg = 83555 Iu)] 1,250 mcg PO TU 05/29/21 Baclofen [Lioresal] 10 mg PO HS 12/23/23 Escitalopram [Lexapro] 20 mg PO DAILY 12/23/23 Ezetimibe [Zetia] 10 mg PO DAILY 12/23/23 Lacosamide [Vimpat] 200 mg PO BID 12/23/23 Pregabalin [Lyrica] 50 mg PO TID 12/23/23 hydroCHLOROthiazide [Hydrodiuril] 25 mg PO DAILY 12/23/23 Albuterol Sulfate [Albuterol Sulfate Hfa] 2 puff INHALATION RT-QID PRN 04/06/24 HYDROcodone/APAP 7.5-325MG [Boone 7.5-325] 1 tab PO BID PRN 04/06/24 OXcarbazepine [Trileptal] 300 mg PO BID 04/06/24 Controlled Substance Measures - Controlled Substance Measures Is patient prescribed a controlled substance at discharge?: No
--- NOTE | 2024-04-08 10:25 | P.CNNES ---
History of Present Illness Consult date: 04/07/24 Requesting physician: Tito Ortega Reason for Consult: right lower extremity weakness History of Present Illness: Patient is a 78-year-old right-handed female came to the hospital by ambulance yesterday at 11:54 AM for difficulty with walking. Patient states that on 03/26/2023, she was sitting in the chair at the kitchen table, got up and legs felt rubber and she fell. She had laceration to the scalp. She came to the ER. In the ED report it was mentioned that patient tried to get out of the chair, it flipped and she hit her head on the cabinet. There was no loss of consciousness. CT head and cervical spine did not reveal any acute process. No fracture. After wound laceration was repaired, patient was released. Patient states that she was fine rest of the week. She was up walking, uses her walker "off and on", when feeling not steady, then she uses a walker. She states that in her head she feels that she is okay, although she is wobbly when walking. Patient states that yesterday morning she woke up at 7 AM with diplopia, dizziness. She got herself to the bathroom and then came back and laid down. She took her blood pressure was 112/50. At 1030 she got up and sat in the recli ner and could not walk. Legs were just like rubber, and she was feeling dizziness, diplopia. There was no slurred speech or facial droop. Her right leg felt weak and was hard to lift her leg. Her son placed her in the wheelchair and she kept leaning to the left. She called her doctor, who recom mended her go to the ER by ambulance. As per EMS flowsheet when they arrived, family mentioned that patient has not been acting right this morning with decreased mobility and unable to sit up on her own. They noticed it in the last 2 days. Patient was inconsistent with neuroassessment but is purposefully did not fall extremities. She was alert and orient x 4 but lethargic with answers. Patient will fall asleep in the middle of sentence, easily awoke with simple verbal stimuli. No falls today. Patient's family mentioned that she did fall last week and required suture repair back of the head. Patient continues to complain of headache in the back of the head. She also has history of migraines. Patient's vitals at the scene was blood pressure 160/90, pulse 88 respirations 16 saturation 98%. Blood sugar 152. Blood sugar 152. Vitals in the hospital include Tmax 99.0. Blood test shows normal CBC, PT PTT, normal CMP. B12 433. UA negative, influenza, RSV and coronavirus PCR negative. Hemoglobin A1c 7.1. CT head showed no acute intracranial process. Nonspecific hypertension's, likely secondary to chronic small vessel ischemic disease. I personally viewed CT head agree with the findings. EKG showed sinus rhythm. Lumbar CT showed multilevel degenerative disc changes. Greatest loss of disc height is present L4-5 sclerotic endplate changes. No spinal canal stenosis. Multilevel foraminal narrowing. This appears greatest at L4-5 which is moderate to severe. Home medications include Vimpat 200 mg twice daily, Trileptal 3 mg twice daily, Lyrica 50 mg 3 times daily, Lipitor 80 mg, Mirapex 1.5 mg at bedtime, Zetia 10 mg, Lexapro 20 mg, HCTZ, baclofen 10 mg at bedtime and Meno. Patient was seen by myself on 06/30/2019 for left-sided hemiataxia and hemisensory loss but the MRI of the brain was negative at that time. Patient was placed on Plavix. Patient subsequently was seen by Dr. Cardona on 05/29/2021 for episode of transient acute dysarthria, expressive aphasia unsteady walking and diplopia for 5 days, possible TIA. Suspected stenosis of cervical supraclinoid portion of the right ICA. Patient had MRI performed again and again it was negative. She had an MRI of the brain, which revealed diminutive A1 segment of the right anterior cerebral artery and patency of the anterior communicating artery. There was probably some acquired stenosis. Patient was continued on Plavix, as she is allergic to aspirin. Patient stopped taking Plavix 1 year ago, as patient states that her motorcycle assembler had told her that it was not necessary. Patient also has history of seizure disorder and patient follows up with Dr. Alonso. Patient believes that last Saturday she had a seizure, she was sleeping all day long and this happens when she had a seizure. Patient states that diplopia has resolved this morning but she is dizzy off and on. Review of Systems All pertinent positive and negative review of systems mentioned in the HPI. Past Medical History Past Medical History: Asthma, Coronary Artery Disease (CAD), CVA/TIA, Diabetes Mellitus, GERD/Reflux, Hyperlipidemia, Hypertension, Osteoarthritis (OA), Pneumonia, Seizure Disorder Additional Past Medical History / Comment(s): cva affected rt side pt states regained most strength to rt arm/hand and R leg, IDDM type II, neuropathy adrien ateral feet, RLS, chronic cervical pain, osteoporosis, narcolepsy, hiatal hernia, diverticular disease, IBS, stress urine incontinence, lichens sclerosis, falls, asthma History of Any Multi-Drug Resistant Organisms: None Reported Past Surgical History: Appendectomy, Back Surgery, Breast Surgery, Cholecystectomy, Heart Catheterization, Hernia Repair, Hysterectomy, Orthopedic Surgery Additional Past Surgical History / Comment(s): 06/24/18 Cervical fusions C4-C5/C5-C6/C6-C7 at [facility],01/2019 Lower back surgery at [facility] R breast benign lumpectomy, cardiac cath showed mild disease, umbilical hernia repair, D&C, bilateral cataract removals, EGD, colonoscopy with benign polyp, cystocele, rectocele, vuvular bx, liver bx d/t elevated LFT. Past Anesthesia/Blood Transfusion Reactions: No Reported Reaction Past Psychological History: Anxiety, Depression Additional Psychological History / Comment(s): Pt resides with her spouse. She has a cane, walker and wheelchair. She no longer drives d/t narcolepsy, her spouse drives. Smoking Status: Never smoker Past Alcohol Use History: None Reported Past Drug Use History: None Reported - Past Family History Mother Family Medical History: Hyperlipidemia, Hypertension Additional Family Medical History / Comment(s): ANEMIA Father Family Medical History: Cancer, CVA/TIA, Diabetes Mellitus Additional Family Medical History / Comment(s): CVA, kidney cancer. Medications and Allergies Home Medications Medication Instructions Recorded Confirmed Type Atorvastatin [Lipitor] 80 mg PO HS 03/21/14 04/06/24 History Pantoprazole Sodium [Protonix] 40 mg PO DAILY 03/21/14 04/06/24 History Pramipexole Di-HCl [Mirapex] 1.5 mg PO HS 03/21/14 04/06/24 History Montelukast [Singulair] 10 mg PO HS 04/11/15 04/06/24 History INSULIN LISPRO (For Pump) [humaLOG See Protocol SQ-PUMP CONTINUOUS 06/30/19 04/06/24 History (For Pump)] Cholestyramine (with Sugar) 4 gm PO DAILY 05/29/21 04/06/24 History [Cholestyramine Packet] Dicyclomine [Bentyl] 10 mg PO QID PRN 05/29/21 04/06/24 History Ergocalciferol [Vitamin D2 (1250 1,250 mcg PO TU 05/29/21 04/06/24 History Mcg = 29456 Iu)] Baclofen [Lioresal] 10 mg PO HS 12/23/23 04/06/24 History Escitalopram [Lexapro] 20 mg PO DAILY 12/23/23 04/06/24 History Ezetimibe [Zetia] 10 mg PO DAILY 12/23/23 04/06/24 History Lacosamide [Vimpat] 200 mg PO BID 12/23/23 04/06/24 History Pregabalin [Lyrica] 50 mg PO TID 12/23/23 04/06/24 History hydroCHLOROthiazide [Hydrodiuril] 25 mg PO DAILY 12/23/23 04/06/24 History Albuterol Sulfate [Albuterol 2 puff INHALATION RT-QID PRN 04/06/24 04/06/24 History Sulfate Hfa] HYDROcodone/APAP 7.5-325MG [Meno 1 tab PO BID PRN 04/06/24 04/06/24 History 7.5-325] OXcarbazepine [Trileptal] 300 mg PO BID 04/06/24 04/06/24 History Allergies Allergy/AdvReac Type Severity Reaction Status Date / Time aspirin Allergy Swelling Verified 04/06/24 12:00 ibuprofen Allergy Swelling Verified 04/06/24 12:00 ipratropium bromide Allergy Swelling Verified 04/06/24 12:00 [From Atrovent] meperidine HCl [From Demerol] Allergy Rash/Hives Verified 04/06/24 12:00 metformin Allergy Swelling Verified 04/06/24 12:00 nickel Allergy Rash/Hives Verified 04/06/24 12:00 hydromorphone HCl AdvReac Nausea & Verified 04/06/24 12:00 [From Dilaudid] Vomiting morphine AdvReac Vomiting Verified 04/06/24 12:00 trazodone AdvReac Weakness Verified 04/06/24 12:00 zolpidem tartrate AdvReac Hallucinati Verified 04/06/24 12:00 [From Anniaien] ons MSG Allergy Rash/Hives Uncoded 04/06/24 12:00 Physical Examination - Vital Signs Vital Signs: Vital Signs Temp Pulse Pulse Resp BP BP Pulse Ox 04/07/24 13:48 81 16 04/07/24 08:40 81 16 04/07/24 07:00 99.0 F 81 16 116/70 96 04/07/24 02:26 85 04/07/24 02:17 82 04/07/24 00:56 97.8 F 74 14 121/76 97 04/06/24 21:05 98.0 F 71 16 134/79 97 04/06/24 18:50 72 16 145/76 97 04/06/24 15:40 70 16 159/75 95 Intake and Output 04/06/24 04/07/24 04/07/24 22:59 06:59 14:59 Intake Total 550 550 Balance 550 550 Intake: IV 10 10 Invasive Line 1 10 10 Oral 540 540 Other: Voiding Method Bedside Commode Bedside Commode Bedside Commode Diaper Diaper Diaper # Voids 2 5 Weight 75.296 kg Patient is an elderly female, very pleasant, in no acute distress. Patient is alert awake oriented to time place and person. Speech and language functions are normal. Patient can name and repeat very well. No aphasia or dysarthria. Attention, concentration and fund of knowledge is adequate. On cranial nerve examination, pupils are equal, round and reacting to light, visual cuevas are full on confrontation, with no neglect on double simultaneous stimulation. Extraocular muscles are intact with no nystagmus. Face is symmetric, tongue protrudes to the midline. Palatal elevation and sensation normal, hearing and shoulder shrug normal, facial sensation normal. On muscle strength testing, there is no pronator drift. The strength is (right/left) deltoid 5/5, biceps 5/5, triceps 5-/5, repair electric motor assembler 4+/5, hip flexion 5-/5, ankle dorsiflexion 5/5. Deep tendon reflexes are symmetric 1+ to 2 and plantars downgoing. Sensory to touch is equal with no neglect on double simultaneous stimulation. Cerebellar function showed no ataxia for [id number] testing on either side. No dysdiadochokinesia. No ataxia for [id number] testing with the left leg, cannot do it with the right leg. Tone and bulk of muscles normal. Gait deferred.. On general examination, there is no carotid bruit or murmur, S1-S2 audible. Chest is clear on consultation. Abdomen is soft nontender. No organomegaly, bowel sounds present. Peripheral pulses are present. No peripheral edema. Results - Laboratory Findings CBC and BMP: 04/08/24 09:21 04/08/24 09:21 Abnormal Lab Findings: Abnormal Labs 04/06/24 04/06/24 04/06/24 12:50 12:50 16:38 Lymphocytes # 0.9 L APTT 21.8 L POC Glucose (mg/dL) 250 H Hemoglobin A1c 04/06/24 04/07/24 04/07/24 21:29 01:00 06:26 Lymphocytes # APTT POC Glucose (mg/dL) 251 H 161 H 255 H Hemoglobin A1c 04/07/24 04/07/24 06:36 11:43 Lymphocytes # APTT POC Glucose (mg/dL) 272 H Hemoglobin A1c 7.1 H Assessment and Plan Assessment: * Possible stroke/TIA, manifesting with diplopia, dizziness and right-sided weakness. Symptoms have mostly resolved. * Diabetes * Hypertension * Hyperlipidemia * Diabetic neuropathy * Coronary artery disease * History of cervical fusion from C4-C7 * Previous history of TIA x 2 Plan: * Patient will undergo TIA workup. * CTA of head and neck * 2D echo with bubble study, rule out PFO * Recheck fasting lipid panel. Patient's previous lipid panel from 05/31/2023 showed cholesterol 230, LDL 175 and triglycerides 234. Patient on Lipitor 80 mg daily. * Hemoglobin A1c 7.1. Recommend optimize control of diabetes to target A1c <5.0 * B12 433 * Resume Plavix 75 mg daily. Patient stopped taking Plavix about a year ago. * Continue Vimpat 200 mg twice daily, Trileptal 300 mg twice daily for her seizure disorder. * Check Trileptal level. * DVT prophylaxis: Lovenox 40 mg subcu daily * PT OT evaluate gait. * Patient to follow-up with her neurologist Dr. Alonso after discharge. * Neurology will follow. Thank you for the consult.
[2024-04-08 10:45] LABS: Chol/HDL Ratio 3.43 Ratio; LDL Cholesterol,Calculated 38.1 mg/dL (0.0-131.0)
[2024-04-08 11:44] LABS: Glucose,Whole Blood 325 mg/dL (70-110)
[2024-04-08] MEDS ORDERED: BUTALB/APAP/CAFF 50-325-40MG TAB PO PRN (15:12)
--- NOTE | 2024-04-08 15:24 | P.PN ---
Subjective Progress Note Date: 04/08/24 Patient is laying comfortably in the bed. Patient states she is feeling little better. Feels slightly weak on the headache. The headache is 4/10. It involves the back and the front. Patient states that her seizures started on July 2020. At first she was thought that she was narcoleptic. However when EEG was done and Dr. Alonso, she was found to have seizure discharges. She has "staring seizures". The last one was on 03/26/2023 when she came to the hospital as mentioned in the note as of yesterday. Patient states her dose of Trileptal was increased from 150 twice daily to 300 mg twice daily on 03/18/2024. She also was having headaches and she was given some injections to the neck by Dr. Alonso in the same visit. Objective - Vital Signs Vital signs: Vital Signs Temp 98.8 F 04/08/24 07:31 Pulse 86 04/08/24 08:43 Resp 24 04/08/24 07:31 BP 150/81 04/08/24 07:31 Pulse Ox 95 04/08/24 07:31 FiO2 Intake & Output 04/07/24 04/08/24 04/08/24 18:59 06:59 18:59 Other: Voiding Method Bedside Commode Bedside Commode Bedside Commode Diaper Diaper # Voids 2 1 # Bowel Movements 1 1 - Exam Examination is completely unchanged. Patient has a flat affect. - Labs CBC & Chem 7: 04/08/24 09:21 04/08/24 09:21 Labs: Abnormal Lab Results - Last 24 Hours (Table) 04/07/24 04/07/24 04/08/24 Range/Units 16:39 21:26 06:05 Sodium (137-145) mmol/L Carbon Dioxide (22-30) mmol/L BUN (7-17) mg/dL Glucose (74-99) mg/dL POC Glucose (mg/dL) 325 H 270 H 295 H (70-110) mg/dL Total Protein (6.3-8.2) g/dL Triglycerides (0.00-149.00) mg/dL VLDL Cholesterol, Calc (5.00-40.00) mg/dL HDL Cholesterol (40.00-60.00) mg/dL 04/08/24 04/08/24 04/08/24 Range/Units 06:46 09:21 11:42 Sodium 136 L (137-145) mmol/L Carbon Dioxide 31 H (22-30) mmol/L BUN 18 H (7-17) mg/dL Glucose 257 H (74-99) mg/dL POC Glucose (mg/dL) 325 H (70-110) mg/dL Total Protein 5.8 L (6.3-8.2) g/dL Triglycerides 238.00 H (0.00-149.00) mg/dL VLDL Cholesterol, Calc 47.60 H (5.00-40.00) mg/dL HDL Cholesterol 35.30 L (40.00-60.00) mg/dL Assessment and Plan Assessment: * Possible stroke/TIA, manifesting with diplopia, dizziness and right-sided weakness. Symptoms have mostly resolved. * Diabetes * Hypertension * Hyperlipidemia * Diabetic neuropathy * Coronary artery disease * History of cervical fusion from C4-C7 * Previous history of TIA x 2 Plan: * TIA workup came back negative. * CTA of head and neck revealed no evidence of dissection of the cervical internal carotid arteries or vertebral arteries. No evidence of significant stenosis at the carotid bifurcations. No evidence of intracranial high-grade stenosis or intracranial aneurysm. * 2D echo with bubble study, rule out PFO revealed normal LV systolic function with EF 55 to 60%. Mildly increased septal wall thickness. Mild MR, TR. Normal left atrial size. Normal right atrial size. Negative agitated saline bubble study for [id number] shunt. * Lipid panel with cholesterol 121, LDL 38, HDL 35 and triglycerides 238. Patient on Lipitor 80 mg daily. This will be continued. * Hemoglobin A1c 7.1. Recommend optimize control of diabetes to target A1c <5.0 * B12 433 * Resume Plavix 75 mg daily. Patient stopped taking Plavix about a year ago. * Continue Vimpat 200 mg twice daily, Trileptal 300 mg twice daily for her seizure disorder. * Patient states her neurologist felt that she was having breakthrough seizures. She was started on Trileptal 150 mg twice daily on around February 15, 2025 and the dose was increased to 300 mg twice daily on 03/18/2024. I am concerned if this is the cause of dizziness and diplopia. Await Trileptal level. * Patient states that she was given some shot in the neck for headaches by Dr. Alonso on 03/18/2024. We will try Fioricet for headache. * DVT prophylaxis: Lovenox 40 mg subcu daily * PT OT evaluate gait. * Patient to follow-up with her neurologist Dr. Alonso after discharge. Tr ileptal level can be followed up by her neurologist. * Neurologically clear for discharge.
--- NOTE | 2024-04-08 16:22 | P.PN ---
Subjective Progress Note Date: 04/08/24 Hospital course: Patient is a pleasant 78-year-old female with a past medical history of chronic back pain recently underwent epidural injection, type 2 diabetes, CVA with right-sided deficits, CAD, asthma, GERD, dyslipidemia, and hypertension. She presented to the emergency department on 04/06/2024 with a chief complaint of bilateral lower extremity weakness worse on right. Upon arrival to our facility, patient underwent evaluation in the emergency department. Vital signs upon arrival show blood pressure 172/73, heart rate 92, respiratory rate 16, temp 98.3 F, and SpO2 of 93% on room air. She was completed showing normal sinus rhythm at [address] brain was negative for acute intercranial process. X-ray bilateral hips negative for acute osseous abnormalities. Labs were completed and reviewed. CBC unremarkable. Coagulation profile showing a low PTT of 21.8 otherwise normal findings. BMP unremarkable. Blood glucose 98. Lactic acid 1.2. Calcium 9.0. Magnesium 2.0. Liver profile unremarkable. Vitamin B12 433 and TSH normal findings at 0.569. Urinalysis negative for infection. Influenza A, influenza B, RSV, and COVID PCR were negative. Patient admitted under our services with consultation to neurology. CT lumbar spine was completed showing multilevel degenerative disc changes, mild residual disc bulging with multilevel vacuum disc phenomenon, and multilevel foraminal narrowing greatest at L4-L5 which is moderate to severe. Consult placed to orthopedic surgeon for evaluation. Orthopedic surgery evaluated recommending consult to pain management. Pain management tentatively scheduling patient for epidural injection on 04/09/2024. Lovenox and Plavix to be held on day of epidural injection. Physical exam: Patient seen and fully evaluated at bedside this morning. She reports the weakness in her left lower extremity has fully resolved but continues to have mild weakness and acute on chronic lower back pain. Patient is scheduled for epidural injection tomorrow with pain management. She denies having any headache, lightheadedness, dizziness, chest pain, palpitations, shortness of breath, or any other complaints at this time. She reports urinating without any difficulties and denies having any numbness in her lower extremities. Vital signs reviewed and stable. General: Nontoxic, no distress and appears stated age. Derm: Skin warm and dry, normal coloration for ethnicity. Head: Atraumatic, normocephalic and symmetric. Eyes: EOM's intact, no lid lag, and anicteric sclera Mouth: no lip lesions, mucus membranes moist Cardiovascular: regular rate and rhythm with normal S1S2, no murmur, positive posterior tibial pulses bilaterally, and cap refill < 2 seconds. Lungs: Respirations even, regular, and unlabored on room air. Lungs CTA bilaterally, no rhonchi, no rales, no wheezing, and no accessory muscle usage. Abdominal: soft, nontender to palpation, no guarding, no appreciable organomegaly Ext:. No gross muscle atrophy, no edema, no contractures. Movement and sensation intact, mild weakness noted to right lower extremity. Neuro: Speech clear, face symmetrical and CN II-XII grossly intact with no noted focal neuro deficits Psych: Alert and oriented to person, place, time, and situation. Appropriate and pleasant affect. Assessment and Plan of Care: Acute on chronic right lower extremity weakness History of CVA with right-sided residual deficits. Chronic lower back pain Hypertension Hyperlipidemia History of CAD -Neurology following, discussed plan of care with Dr. Barboza. -Orthospine surgery following recommending pain management. -Pain management evaluated, patient scheduled for epidural injections of lumbar spine tomorrow, 04/09/2024. Lovenox and Plavix to be held day of procedure per pain management. -PT/OT following, patient to be discharged home with home care -Maintain fall precautions -Continue daily medication regimen with atorvastatin 80 mg nightly, Plavix 75 mg daily, Zetia 10 mg nightly. -Continue pain management with Tylenol 650 mg every 6 hours as needed for mild pain, [place] 5/325 mg tablets every 4 hours as needed for moderate pain, baclofen 10 mg nightly, and Lyrica 50 mg 3 times daily. -Neurochecks every 4 hours -Telemetry monitoring Type 2 insulin-dependent diabetes mellitus with hyperglycemia -Patient's son took patient's personal insulin pump at home. Patient placed on glycemic protocol with NovoLog sliding scale throughout hospitalization. Data and imaging reviewed: Labs reviewed. CBC unremarkable. BMP showing sodium 136, bicarb of 31, and elevated BUN of 18. Blood glucose 257. Magnesium 2.0. Liver profile unremarkable. Lipid profile showing elevated triglycerides of 238 and LDL of 47.60 with a low HDL of 35.30. Echocardiogram was completed showing a preserved EF of 55 to 60% with mild mitral and tricuspid regurgitation. CTA head and neck negative showing no evidence of dissection of the cervical internal carotid arteries or vertebral arteries, no evidence of significant stenosis at the carotid bifurcations, and no evidence of intracranial high-grade stenosis or intracranial aneurysm. Vital signs reviewed. Blood pressure 150/81, heart rate 87, respiratory rate 24, temp 98.8 F, and SpO2 of 95% on room air. CODE STATUS: Full Code DVT prophylaxis: Lovenox Anticipated discharge date: Likely tomorrow Anticipated discharge place: Home with home care Patient was seen independently by Nurse Pracitioner. This document was prepared using [employer] dictation software. Please allow for errors in discovery guide, while rare they do occur. Emory De La Vega NP rendered care for this patient independently, reviewed the findings and plan as documented in the note above and agree with plan. I did not physically speak with or examine the patient on this date. Objective - Vital Signs Vital signs: Vital Signs Temp 98.8 F 04/08/24 07:31 Pulse 86 04/08/24 08:43 Resp 24 04/08/24 07:31 BP 150/81 04/08/24 07:31 Pulse Ox 95 04/08/24 07:31 FiO2 Intake & Output 04/07/24 04/08/24 04/08/24 18:59 06:59 18:59 Other: Voiding Method Bedside Commode Bedside Commode Diaper Diaper # Voids 2 1 # Bowel Movements 1 1 - Labs CBC & Chem 7: 04/08/24 09:21 04/08/24 09:21 Labs: Abnormal Lab Results - Last 24 Hours (Table) 04/07/24 04/07/24 04/07/24 Range/Units 06:36 11:43 16:39 POC Glucose (mg/dL) 272 H 325 H (70-110) mg/dL Hemoglobin A1c 7.1 H (<=6.0) % 04/07/24 04/08/24 Range/Units 21:26 06:05 POC Glucose (mg/dL) 270 H 295 H (70-110) mg/dL Hemoglobin A1c (<=6.0) %
[2024-04-08 16:49] LABS: Glucose,Whole Blood 337 mg/dL (70-110)
[2024-04-08 20:13] LABS: Glucose,Whole Blood 234 mg/dL (70-110)
[2024-04-09 05:59] LABS: Glucose,Whole Blood 253 mg/dL (70-110)
[2024-04-09 07:02] LABS: Glucose,Whole Blood 287 mg/dL (70-110)
[2024-04-09] MEDS: CLOPIDOGREL 75 MG TAB PO SCH (08:31)
[2024-04-09 11:43] LABS: Glucose,Whole Blood 267 mg/dL (70-110)
--- NOTE | 2024-04-09 12:28 | EEG ---
ELECTROENCEPHALOGRAM REPORT PREAMBLE: This is a 78-year-old female with seizure disorder, had a breakthrough seizure while in the hospital. CURRENT MEDICATIONS: 1. Trileptal. 2. Vimpat. EEG FINDINGS: This is a 21-channel digital EEG recorded with video component, utilizing 10/20 international system with referential and bipolar montages. Background consists of well developed and well regulated, moderate to high amplitude, predominantly 8 hertz alpha, intermixed with some high amplitude 1 to 2 hertz delta activity in bihemispheric region. Background does not seem to be reactive to eye opening or closing. Photic driving response was not seen. Different stages of sleep were not seen. No focal or generalized epileptiform activity was seen. IMPRESSION: This is an abnormal EEG due to intermittent generalized slowing, suggestive of mild encephalopathy. No focal, lateralized, or epileptiform activity was seen. MMRO / LUCITAN: [id number] /
--- NOTE | 2024-04-09 13:24 | P.DS ---
Providers Date of admission: 04/06/24 15:39 Expected date of discharge: 04/09/24 Attending physician: Tito Ortega Consults: 04/06/24 17:17 Consult Physician Routine Consulting Provider: Juan Barboza Consult Reason/Comments: right lower extremity weakness Do you want consulting provider notified?: Yes 04/07/24 08:40 Consult Physician Routine Consulting Provider: Don Luo Consult Reason/Comments: RLE weakness mod-severe foraminal narrowing L4-L5 multilevelel vacuum disc Do you want consulting provider notified?: Yes Primary care physician: [facility] Course: Discharge Diagnosis: Acute on chronic right lower extremity weakness. History of CVA with right-sided residual deficits. Chronic lower back pain Hypertension Hyperlipidemia History of CAD Type 2 insulin-dependent diabetes mellitus with hyperglycemia Hospital course: Patient is a pleasant 78-year-old female with a past medical history of chronic back pain recently underwent epidural injection, type 2 diabetes, CVA with right-sided deficits, CAD, asthma, GERD, dyslipidemia, and hypertension. She presented to the emergency department on 04/06/2024 with a chief complaint of bilateral lower extremity weakness worse on right. Upon arrival to our facility, patient underwent evaluation in the emergency department. Vital signs upon arrival show blood pressure 172/73, heart rate 92, respiratory rate 16, temp 98.3 F, and SpO2 of 93% on room air. She was completed showing normal sinus rhythm at [address] brain was negative for acute intercranial process. X-ray bilateral hips negative for acute osseous abnormalities. Labs were completed and reviewed. CBC unremarkable. Coagulation profile showing a low PTT of 21.8 otherwise normal findings. BMP unremarkable. Blood glucose 98. Lactic acid 1.2. Calcium 9.0. Magnesium 2.0. Liver profile unremarkable. Vitamin B12 433 and TSH normal findings at 0.569. Urinalysis negative for infection. Influenza A, influenza B, RSV, and COVID PCR were negative. Patient admitted under our services with consultation to neurology. CT lumbar spine was completed showing multilevel degenerative disc changes, mild residual disc bulging with multilevel vacuum disc phenomenon, and multilevel foraminal narrowing greatest at L4-L5 which is moderate to severe. Consult placed to orthopedic surgeon for evaluation. Orthopedic surgery evaluated recommending consult to pain management. Pain management tentatively scheduling patient for epidural injection on 04/09/2024. Lovenox and Plavix to be held on day of epidural injection. Oxcarbazepine level therapeutic at 13.0. Pain management canceled epidural injection, stating patient to be off of Plavix for 7 days prior to procedure. Patient is medically optimized for discharge and is being discharged home with home care. Patient to follow-up outpatient with pain management for epidural injection and to follow-up with PCP, and neurologist. Physical exam: Vital signs reviewed and stable. General: Nontoxic, no distress and appears stated age. Derm: Skin warm and dry, normal coloration for ethnicity. Head: Atraumatic, normocephalic and symmetric. Eyes: EOM's intact, no lid lag, and anicteric sclera Mouth: no lip lesions, mucus membranes moist Cardiovascular: regular rate and rhythm with normal S1S2, no murmur, positive posterior tibial pulses bilaterally, and cap refill < 2 seconds. Lungs: Respirations even, regular, and unlabored on room air. Lungs CTA bilaterally, no rhonchi, no rales, no wheezing, and no accessory muscle usage. Abdominal: soft, nontender to palpation, no guarding, no appreciable organomegaly Ext:. No gross muscle atrophy, no edema, no contractures. Movement and sensation intact, mild weakness noted to right lower extremity. Neuro: Speech clear, face symmetrical and CN II-XII grossly intact with no noted focal neuro deficits Psych: Alert and oriented to person, place, time, and situation. Appropriate and pleasant affect. A total of 34 minutes of time were spent preparing this complex discharge summary. Pt was discharged on 04/09/2024 at 1:08 PM. Patient was seen independently by Nurse Practitioner. This document was prepared using [employer] dictation software. Please allow for errors in web ui developer while rare they do occur. Emory De La Vega NP rendered care for this patient independently, reviewed the findings and plan as documented in the note above. I did not physically speak with or examine the patient on this date. Patient Condition at Discharge: Stable Plan - Discharge Summary Discharge Rx Participant: No New Discharge Prescriptions: New Clopidogrel [Plavix] 75 mg PO DAILY 30 Days #30 tab Continue Pramipexole Di-HCl [Mirapex] 1.5 mg PO HS Pantoprazole Sodium [Protonix] 40 mg PO DAILY Atorvastatin [Lipitor] 80 mg PO HS Montelukast [Singulair] 10 mg PO HS INSULIN LISPRO (For Pump) [humaLOG (For Pump)] See Protocol SQ-PUMP CONTINUOUS Cholestyramine (with Sugar) [Cholestyramine Packet] 4 gm PO DAILY Ergocalciferol [Vitamin D2 (1250 Mcg = 16587 Iu)] 1,250 mcg PO TU Ezetimibe [Zetia] 10 mg PO DAILY Escitalopram [Lexapro] 20 mg PO DAILY Albuterol Sulfate [Albuterol Sulfate Hfa] 2 puff INHALATION RT-QID PRN PRN Reason: Shortness Of Breath OXcarbazepine [Trileptal] 300 mg PO BID HYDROcodone/APAP 7.5-325MG [[place] 7.5-325] 1 tab PO BID PRN PRN Reason: Pain Dicyclomine [Bentyl] 10 mg PO QID PRN PRN Reason: IBS Pregabalin [Lyrica] 50 mg PO TID Lacosamide [Vimpat] 200 mg PO BID hydroCHLOROthiazide [Hydrodiuril] 25 mg PO DAILY Baclofen [Lioresal] 10 mg PO HS Discharge Medication List Atorvastatin [Lipitor] 80 mg PO HS 03/21/14 [History] Pantoprazole Sodium [Protonix] 40 mg PO DAILY 03/21/14 [History] Pramipexole Di-HCl [Mirapex] 1.5 mg PO HS 03/21/14 [History] Montelukast [Singulair] 10 mg PO HS 04/11/15 [History] INSULIN LISPRO (For Pump) [humaLOG (For Pump)] See Protocol SQ-PUMP CONTINUOUS 06/30/19 [History] Cholestyramine (with Sugar) [Cholestyramine Packet] 4 gm PO DAILY 05/29/21 [History] Dicyclomine [Bentyl] 10 mg PO QID PRN 05/29/21 [History] Ergocalciferol [Vitamin D2 (1250 Mcg = 96441 Iu)] 1,250 mcg PO TU 05/29/21 [History] Baclofen [Lioresal] 10 mg PO HS 12/23/23 [History] Escitalopram [Lexapro] 20 mg PO DAILY 12/23/23 [History] Ezetimibe [Zetia] 10 mg PO DAILY 12/23/23 [History] Lacosamide [Vimpat] 200 mg PO BID 12/23/23 [History] Pregabalin [Lyrica] 50 mg PO TID 12/23/23 [History] hydroCHLOROthiazide [Hydrodiuril] 25 mg PO DAILY 12/23/23 [History] Albuterol Sulfate [Albuterol Sulfate Hfa] 2 puff INHALATION RT-QID PRN 04/06/24 [History] HYDROcodone/APAP 7.5-325MG [[place] 7.5-325] 1 tab PO BID PRN 04/06/24 [History] OXcarbazepine [Trileptal] 300 mg PO BID 04/06/24 [History] Clopidogrel [Plavix] 75 mg PO DAILY 30 Days #30 tab 04/09/24 [Rx] Follow up Appointment(s)/Referral(s): [facility] [NON-STAFF] - As Needed (Call [facility] to see if they have a transfer bench for you. ) Pain Clinic,[facility] [NON-STAFF] - 1 Week Residential Home,[facility] [NON-STAFF] - As Needed Villa Alonso DO [STAFF PHYSICIAN] - 1 Week Chris Caicedo DO [Primary Care Provider] - 1-2 days [facility] [NON-STAFF] - As Needed (Call [facility] to see if they have a transfer bench for you. ) Patient Instructions/Handouts: Chronic Back Pain (DC) Activity/Diet/Wound Care/Special Instructions: Patient requires a bedside commode because she is room confined due to chronic back pain, history of CVA with right sided deficits, and bilateral lower extremi ty weakness. Discharge Disposition: HOME SELF-CARE
[2024-04-09 13:47] VITALS: BP 128/69; PULSE 80; RESP 20; TEMP 98.5
[2024-04-09 14:59] LABS: Glucose,Whole Blood 225 mg/dL (70-110)
--- NOTE | 2024-04-10 10:58 | P.PN ---
Subjective Progress Note Date: 04/09/24 Patient was seen for a follow-up. Patient is laying comfortably in the bed. Patient apparently had a seizure, which was unwitnessed, reported to the nurse and said "I peed on myself". Patient was alert and orient x 3 at that time. Denied any injury. EEG was ordered, which was done this morning. No further seizures have been reported. Patient states that her seizures started on July 2020. At first she was thought that she was narcoleptic. However when EEG was done and Dr. Alonso, she was found to have seizure discharges. She has "staring seizures". The last one was on 03/26/2023 when she came to the hospital as mentioned in the note as of yesterday. Patient states her dose of Trileptal was increased from 150 twice daily to 300 mg twice daily on 03/18/2024. She also was having headaches and she was given some injections to the neck by Dr. Alonso in the same visit. Objective - Vital Signs Vital signs: Vital Signs Temp 98.0 F 04/09/24 06:58 Pulse 65 04/09/24 08:34 Resp 16 04/09/24 08:34 BP 126/76 04/09/24 06:58 Pulse Ox 95 04/09/24 06:58 FiO2 Intake & Output 04/08/24 04/09/24 04/09/24 18:59 06:59 18:59 Other: Voiding Method Bedside Commode External Catheter External Catheter # Voids 4 2 # Bowel Movements 1 1 - Exam Examination is completely unchanged. Patient has a flat affect. Mental status, speech and language functions are normal. Muscle strength is normal. No ataxia. - Labs CBC & Chem 7: 04/08/24 09:21 04/08/24 09:21 Labs: Abnormal Lab Results - Last 24 Hours (Table) 04/08/24 04/08/24 04/09/24 Range/Units 16:48 20:12 05:58 POC Glucose (mg/dL) 337 H 234 H 253 H (70-110) mg/dL 04/09/24 04/09/24 Range/Units 06:59 11:41 POC Glucose (mg/dL) 287 H 267 H (70-110) mg/dL Assessment and Plan Assessment: * Possible stroke/TIA, manifesting with diplopia, dizziness and right-sided weakness. Symptoms have mostly resolved. * Seizure disorder, had breakthrough seizure in the hospital yesterday. * Diabetes * Hypertension * Hyperlipidemia * Diabetic neuropathy * Coronary artery disease * History of cervical fusion from C4-C7 * Previous history of TIA x 2 Plan: * TIA workup came back negative. * CTA of head and neck revealed no evidence of dissection of the cervical internal carotid arteries or vertebral arteries. No evidence of significant stenosis at the carotid bifurcations. No evidence of intracranial high-grade stenosis or intracranial aneurysm. * 2D echo with bubble study, rule out PFO revealed normal LV systolic function with EF 55 to 60%. Mildly increased septal wall thickness. Mild MR, TR. Normal left atrial size. Normal right atrial size. Negative agitated saline bubble study for [id number] shunt. * Lipid panel with cholesterol 121, LDL 38, HDL 35 and triglycerides 238. Pat ient on Lipitor 80 mg daily. This will be continued. * Hemoglobin A1c 7.1. Recommend optimize control of diabetes to target A1c <5.0 * B12 433 * Resume Plavix 75 mg daily. Patient stopped taking Plavix about a year ago. * Patient had a breakthrough seizure yesterday. EEG was performed, which was abnormal due to intermittent generalized slowing, suggestive of mild encephalopathy. No focal, lateralized or epileptiform activity was seen. * Continue Vimpat 200 mg twice daily, Trileptal 300 mg twice daily for her seizure disorder. * Patient states her neurologist felt that she was having breakthrough seizures. She was started on Trileptal 150 mg twice daily on around February 15, 2025 and the dose was increased to 300 mg twice daily on 03/18/2024. I am concerned if this is the cause of dizziness and diplopia. Trileptal level 13.0 (10-35). Levels are therapeutic. * Patient states that she was given some shot in the neck for headaches by Dr. Alonso on 03/18/2024. We will try Fioricet for headache. * DVT prophylaxis: Lovenox 40 mg subcu daily * PT OT evaluate gait. * Patient to follow-up with her neurologist Dr. Alonso after discharge. * Neurologically clear for discharge.
== END 2024-04-09 15:16 | disposition home or self-care (01) ==
LOC: EC 11:54 → 6NMEDSUR 15:39 → 1SOBS 18:34
PROVIDERS: ADMIT Student in an Organized Health Care Education/Training Program; ATTEND Student in an Organized Health Care Education/Training Program
DX: R53.1 Weakness (principal); H53.2 Diplopia; R42 Dizziness and giddiness; E11.65 Type 2 diabetes mellitus with hyperglycemia; I25.10 Atherosclerotic heart disease of native coronary artery without angina pectoris; K21.9 Gastro-esophageal reflux disease without esophagitis; J45.909 Unspecified asthma, uncomplicated; I10 Essential (primary) hypertension; E78.5 Hyperlipidemia, unspecified; E11.40 Type 2 diabetes mellitus with diabetic neuropathy, unspecified; F32.9 Major depressive disorder, single episode, unspecified; F41.9 Anxiety disorder, unspecified; M51.16 Intervertebral disc disorders with radiculopathy, lumbar region; M47.26 Other spondylosis with radiculopathy, lumbar region; M48.061 Spinal stenosis, lumbar region without neurogenic claudication; R29.6 Repeated falls; G40.909 Epilepsy, unspecified, not intractable, without status epilepticus; I69.351 Hemiplegia and hemiparesis following cerebral infarction affecting right dominant side; Z11.52 Encounter for screening for COVID-19; Z96.41 Presence of insulin pump (external) (internal); Z98.1 Arthrodesis status; Z79.02 Long term (current) use of antithrombotics/antiplatelets; Z79.4 Long term (current) use of insulin; Z79.899 Other long term (current) drug therapy; Z88.5 Allergy status to narcotic agent; Z88.6 Allergy status to analgesic agent
CPT/HCPCS: 96372 ×2; 99285; 36415; 94640 ×2; 95816; 93005; 93306; 97162; 97166; 80061; 80053 ×2; 84443; 80183; 82607; 83605; 83735 ×2; 85025; 85027; 85610; 85730; 81003; 83036; 87636; 73521; 72132; 70496; 70450; 70498; G0378 ×4; J1650 ×2; Q9967 ×2

== ENCOUNTER 2024-07-26 10:16 | Emergency (ER) | payer MEDICARE, OTHER ==
[2024-07-26 10:21] VITALS: TEMP 98.2
--- NOTE | 2024-07-26 10:36 | ED ---
General Adult HPI - General Chief complaint: Fall Stated complaint: Fall/Head Injury Time Seen by Provider: 07/26/24 10:22 Source: patient, family, RN notes reviewed Mode of arrival: wheelchair Limitations: no limitations - History of Present Illness Initial comments: Patient is a 78-year-old female presented to the emergency department with concern with fall. Incident occurred around an hour ago. Patient did strike the top of her head and has discomfort 9/10. No loss of consciousness. No new weakness or confusion. Patient did have a fall a week ago and also struck the back of her head. Patient has been had some lightheadedness and blurred vision since that time. Patient does have history of chronic falls and does see a neurologist. - Related Data Home Medications Medication Instructions Recorded Confirmed Atorvastatin [Lipitor] 80 mg PO HS 03/21/14 04/06/24 Pantoprazole Sodium [Protonix] 40 mg PO DAILY 03/21/14 04/06/24 Pramipexole Di-HCl [Mirapex] 1.5 mg PO HS 03/21/14 04/06/24 Montelukast [Singulair] 10 mg PO HS 04/11/15 04/06/24 INSULIN LISPRO (For Pump) [humaLOG See Protocol SQ-PUMP CONTINUOUS 06/30/19 04/06/24 (For Pump)] Cholestyramine (with Sugar) 4 gm PO DAILY 05/29/21 04/06/24 [Cholestyramine Packet] Dicyclomine [Bentyl] 10 mg PO QID PRN 05/29/21 04/06/24 Ergocalciferol [Vitamin D2 (1250 1,250 mcg PO TU 05/29/21 04/06/24 Mcg = 90903 Iu)] Baclofen [Lioresal] 10 mg PO HS 12/23/23 04/06/24 Escitalopram [Lexapro] 20 mg PO DAILY 12/23/23 04/06/24 Ezetimibe [Zetia] 10 mg PO DAILY 12/23/23 04/06/24 Lacosamide [Vimpat] 200 mg PO BID 12/23/23 04/06/24 Pregabalin [Lyrica] 50 mg PO TID 12/23/23 04/06/24 hydroCHLOROthiazide [Hydrodiuril] 25 mg PO DAILY 12/23/23 04/06/24 Albuterol Sulfate [Albuterol 2 puff INHALATION RT-QID PRN 04/06/24 04/06/24 Sulfate Hfa] HYDROcodone/APAP 7.5-325MG [Wever 1 tab PO BID PRN 04/06/24 04/06/24 7.5-325] OXcarbazepine [Trileptal] 300 mg PO BID 04/06/24 04/06/24 Previous Rx's Medication Instructions Recorded Clopidogrel [Plavix] 75 mg PO DAILY 30 Days #30 tab 04/09/24 Allergies Allergy/AdvReac Type Severity Reaction Status Date / Time aspirin Allergy Swelling Verified 07/26/24 10:21 ibuprofen Allergy Swelling Verified 07/26/24 10:21 ipratropium bromide Allergy Swelling Verified 07/26/24 10:21 [From Atrovent] meperidine HCl [From Demerol] Allergy Rash/Hives Verified 07/26/24 10:21 metformin Allergy Swelling Verified 07/26/24 10:21 nickel Allergy Rash/Hives Verified 07/26/24 10:21 hydromorphone HCl AdvReac Nausea & Verified 07/26/24 10:21 [From Dilaudid] Vomiting morphine AdvReac Vomiting Verified 07/26/24 10:21 trazodone AdvReac Weakness Verified 07/26/24 10:21 zolpidem tartrate AdvReac Hallucinati Verified 07/26/24 10:21 [From Ambien] ons MSG Allergy Rash/Hives Uncoded 07/26/24 10:21 Review of Systems ROS Statement: Those systems with pertinent positive or pertinent negative responses have been documented in the HPI. ROS Other: All systems not noted in ROS Statement are negative. Constitutional: Denies: fever Eyes: Denies: eye pain ENT: Denies: ear pain Respiratory: Denies: cough, dyspnea Cardiovascular: Denies: chest pain Gastrointestinal: Denies: abdominal pain Genitourinary: Denies: dysuria Musculoskeletal: Denies: back pain Skin: Denies: rash Neurological: Reports: as per HPI, headache. 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 regained most strength to rt arm/hand and R leg, IDDM type II, neuropathy bilateral feet, RLS, chronic cervical pain, osteoporosis, narcolepsy, hiatal hernia, diverticular disease, IBS, stress urine incontinence, lichens sclerosis, falls, asthma History of Any Multi-Drug Resistant Organisms: None Reported Past Surgical History: Appendectomy, Back Surgery, Breast Surgery, Cholecystectomy, Heart Catheterization, Hernia Repair, Hysterectomy, Orthopedic Surgery Additional Past Surgical History / Comment(s): 06/24/18 Cervical fusions C4-C5/C5-C6/C6-C7 at [facility],01/2019 Lower back surgery at [facility] R breast benign lumpectomy, cardiac cath showed mild disease, umbilical hernia repair, D&C, bilateral cataract removals, EGD, colonoscopy with benign polyp, cystocele, rectocele, vuvular bx, liver bx d/t elevated LFT. Past Anesthesia/Blood Transfusion Reactions: No Reported Reaction Past Psychological History: Anxiety, Depression Smoking Status: Never smoker Past Alcohol Use History: None Reported Past Drug Use History: None Reported - Past Family History Mother Family Medical History: Hyperlipidemia, Hypertension Additional Family Medical History / Comment(s): ANEMIA Father Family Medical History: Cancer, CVA/TIA, Diabetes Mellitus Additional Family Medical History / Comment(s): CVA, kidney cancer. General Exam Limitations: no limitations General appearance: alert, in no apparent distress Head exam: Present: other (Soft tissue swelling right parietal) Eye exam: Present: normal appearance, PERRL, EOMI, other (Nondilated funduscopic exam without gross abnormality) ENT exam: Present: normal oropharynx Neck exam: Present: normal inspection. Absent: tenderness Respiratory exam: Present: normal lung sounds bilaterally Cardiovascular Exam: Present: regular rate, normal rhythm GI/Abdominal exam: Present: soft. Absent: tenderness Extremities exam: Present: normal inspection. Absent: tenderness, pedal edema, calf tenderness Neurological exam: Present: alert, CN II-XII intact. Absent: motor sensory deficit Expanded Neurological exam: Present: protecting the airway Speech: Present: fluid speech Motor strength exam: RUE: 5, LUE: 5, RLE: 5, LLE: 5 Psychiatric exam: Present: normal affect, normal mood Skin exam: Present: normal color Course Vital Signs 07/26/24 07/26/24 07/26/24 10:17 10:41 10:50 Temperature 98.2 F Pulse Rate 88 83 Respiratory 18 23 Rate Blood Pressure 141/77 136/72 136/72 O2 Sat by Pulse 95 92 L Oximetry 07/26/24 07/26/24 07/26/24 11:00 11:20 11:30 Temperature Pulse Rate 83 77 Respiratory 18 22 Rate Blood Pressure 136/72 120/69 120/69 O2 Sat by Pulse 87 L 91 L Oximetry 07/26/24 07/26/24 11:40 11:50 Temperature Pulse Rate 78 77 Respiratory 11 L 17 Rate Blood Pressure 120/69 120/69 O2 Sat by Pulse 93 L 93 L Oximetry EKG Findings - EKG Results: EKG: interpreted by JOSED, sinus rhythm, normal axis, normal QRS, normal ST/T Medical Decision Making - Medical Decision Making Was pt. sent in by a medical professional or institution (, PA, [employer], urgent care, hospital, or group home...) When possible be specific @ -No Did you speak to anyone other than the patient for history (EMS, parent, family, police, friend...)? What history was obtained from this source @ -Family is present and help provide history including patient has chronic frequent falls Did you review nursing and triage notes (agree or disagree)? Why? @ -I reviewed and agree with nursing and triage notes Were old charts reviewed (outside hosp., previous admission, EMS record, old EKG, old radiological studies, urgent care reports/EKG's, group home records)? Report findings @ -No old charts were reviewed Differential Diagnosis (chest pain, altered mental status, abdominal pain women, abdominal pain men, vaginal bleeding, weakness, fever, dyspnea, syncope, headache, dizziness, GI bleed, back pain, seizure, CVA, palpatations, mental health, musculoskeletal)? @ -Differential Headache: Migraine, tension, cluster, carbon monoxide, central venous thrombosis, pension karma temporal arteritis, acute closure glaucoma, intercranial hemorrhage, mastoiditis, sinusitis, head injury, this is not meant to be an all-inclusive list. EKG interpreted by me (3pts min.). @ -As above X-rays interpreted by me (1pt min.). @ -Chest x-ray shows no acute process CT interpreted by me (1pt min.). @ -CT brain without acute abnormality U/S interpreted by me (1pt. min.). @ -None done What testing was considered but not performed or refused? (CT, X-rays, U/S, labs)? Why? @ -None What meds were considered but not given or refused? Why? @ -None Did you discuss the management of the patient with other professionals (professionals i.e. Dr., PA, [employer], lab, RT, psych nurse, nursing home social worker, nuclear fuels reclamation engineer, teacher, fisheries enforcement officer, vocational case manager)? Give summary @ -No Was smoking cessation discussed for >3mins.? @ -No Was critical care preformed (if so, how long)? @ -No Were there social determinants of health that impacted care today? How? (Homele ssness, low income, unemployed, alcoholism, drug addiction, transportation, low edu. Level, literacy, decrease access to med. care, prison, rehab)? @ -No Was there de-escalation of care discussed even if they declined (Discuss DNR or withdrawal of care, Hospice)? DNR status @ -No What co-morbidities impacted this encounter? (DM, HTN, Smoking, COPD, CAD, Cancer, CVA, ARF, Chemo, Hep., AIDS, mental health diagnosis, sleep apnea, morbid obesity)? @ -Chronic frequent falls Was patient admitted / discharged? Hospital course, mention meds given and route, prescriptions, significant lab abnormalities, going to OR and other pertinent info. @ -Patient presents with [address] and evaluation otherwise unremarkable. Patient improved with Oz Mab. Patient and family are updated on results and need for follow-up. Specifically updated and need to follow-up with carbamazepine level Undiagnosed new problem with uncertain prognosis? @ -No Drug Therapy requiring intensive monitoring for toxicity (Heparin, Nitro, Insulin, Cardizem)? @ -No Were any procedures done? @ -No Diagnosis/symptom? @ -Fall, head injury Acute, or Chronic, or Acute on Chronic? @ -Acute, acute Uncomplicated (without systemic symptoms) or Complicated (systemic symptoms)? @ -Default Side effects of treatment? @ -No Exacerbation, Progression, or Severe Exacerbation? @ -No Poses a threat to life or bodily function? How? (Chest pain, USA, CA, pneumonia, PE, COPD, DKA, ARF, appy, cholecystitis, CVA, Diverticulitis, Homicidal, Suicidal, threat to staff... and all critical care pts) @ -No - Lab Data Result diagrams: 07/26/24 10:47 07/26/24 10:47 Lab Results 07/26/24 07/26/24 07/26/24 Range/Units 10:47 10:47 10:47 WBC 6.78 (4.50-10.00) 10*3/uL RBC 4.63 (4.10-5.20) 10*6/uL Hgb 13.6 (12.0-15.0) g/dL Hct 39.8 (37.2-46.3) % MCV 86.0 (80.0-97.0) fL MCH 29.4 (27.0-32.0) pg MCHC 34.2 (32.0-37.0) g/dL Plt Count 187 (140-440) 10*3/uL MPV 10.4 (9.5-12.2) fL Immature Gran % (Auto) 0.4 % Neutrophils % 76.6 % Lymphocytes % 11.8 % Monocytes % 7.5 % Eosinophils % 2.8 % Basophils % 0.9 % Immature Gran # 0.03 (0.00-0.04) 10*3/uL Neutrophils # 5.19 (1.80-7.70) 10*3/uL Lymphocytes # 0.80 L (0.90-5.00) 10*3/uL Monocytes # 0.51 (0.20-1.00) 10*3/uL Eosinophils # 0.19 (0.04-0.35) 10*3/uL Basophils # 0.06 (0.00-0.10) 10*3/uL PT 9.9 L (10.0-12.5) sec INR 0.9 (<1.2) APTT 22.2 (22.0-30.0) sec Sodium 138 (137-145) mmol/L Potassium 3.9 (3.5-5.1) mmol/L Chloride 100 (98-107) mmol/L Carbon Dioxide 27 (22-30) mmol/L Anion Gap 11 mmol/L BUN 15 (7-17) mg/dL Creatinine 0.66 (0.52-1.04) mg/dL Est GFR (CKD-EPI)AfAm >90 (>60 ml/min/1.73 sqM) Est GFR (CKD-EPI)NonAf 86 (>60 ml/min/1.73 sqM) Glucose 154 H (74-99) mg/dL Calcium 9.4 (8.4-10.2) mg/dL Magnesium 1.9 (1.6-2.3) mg/dL Total Bilirubin 0.7 (0.2-1.3) mg/dL AST 18 (14-36) U/L ALT 17 (4-34) U/L Alkaline Phosphatase 76 (38-126) U/L Total Protein 6.3 (6.3-8.2) g/dL Albumin 4.0 (3.5-5.0) g/dL Urine Color Urine Appearance (Clear) Urine pH (5.0-8.0) Ur Specific [place] (1.001-1.035) Urine Protein (Negative) Urine Glucose (UA) (Negative) Urine Ketones (Negative) Urine Blood (Negative) Urine Nitrite (Negative) Urine Bilirubin (Negative) Urine Urobilinogen (<2.0) mg/dL Ur Leukocyte Esterase (Negative) Urine RBC (0-5) /hpf Urine WBC (0-5) /hpf Ur Squamous Epith Cells (0-4) /hpf Urine Bacteria (None) /hpf Urine Mucus (None) /hpf // Range/Units 11:10 WBC (4.50-10.00) 10*3/uL RBC (4.10-5.20) 10*6/uL Hgb (12.0-15.0) g/dL Hct (37.2-46.3) % MCV (80.0-97.0) fL MCH (27.0-32.0) pg MCHC (32.0-37.0) g/dL Plt Count (140-440) 10*3/uL MPV (9.5-12.2) fL Immature Gran % (Auto) % Neutrophils % % Lymphocytes % % Monocytes % % Eosinophils % % Basophils % % Immature Gran # (0.00-0.04) 10*3/uL Neutrophils # (1.80-7.70) 10*3/uL Lymphocytes # (0.90-5.00) 10*3/uL Monocytes # (0.20-1.00) 10*3/uL Eosinophils # (0.04-0.35) 10*3/uL Basophils # (0.00-0.10) 10*3/uL PT (10.0-12.5) sec INR (<1.2) APTT (22.0-30.0) sec Sodium (137-145) mmol/L Potassium (3.5-5.1) mmol/L Chloride (98-107) mmol/L Carbon Dioxide (22-30) mmol/L Anion Gap mmol/L BUN (7-17) mg/dL Creatinine (0.52-1.04) mg/dL Est GFR (CKD-EPI)AfAm (>60 ml/min/1.73 sqM) Est GFR (CKD-EPI)NonAf (>60 ml/min/1.73 sqM) Glucose (74-99) mg/dL Calcium (8.4-10.2) mg/dL Magnesium (1.6-2.3) mg/dL Total Bilirubin (0.2-1.3) mg/dL AST (14-36) U/L ALT (4-34) U/L Alkaline Phosphatase (38-126) U/L Total Protein (6.3-8.2) g/dL Albumin (3.5-5.0) g/dL Urine Color Colorless Urine Appearance Clear (Clear) Urine pH 5.0 (5.0-8.0) Ur Specific [place] 1.033 (1.001-1.035) Urine Protein Negative (Negative) Urine Glucose (UA) 4+ H (Negative) Urine Ketones Negative (Negative) Urine Blood Moderate H (Negative) Urine Nitrite Negative (Negative) Urine Bilirubin Negative (Negative) Urine Urobilinogen <2.0 (<2.0) mg/dL Ur Leukocyte Esterase Negative (Negative) Urine RBC 1 (0-5) /hpf Urine WBC 1 (0-5) /hpf Ur Squamous Epith Cells <1 (0-4) /hpf Urine Bacteria Rare H (None) /hpf Urine Mucus Rare H (None) /hpf Disposition Clinical Impression: Fall, Head injury Disposition: HOME SELF-CARE Condition: Stable Instructions (If sedation given, give patient instructions): Fall Prevention for Older Adults (ED), Head Injury (ED) Additional Instructions: Please do follow-up with your primary care physician in the next couple of days for recheck. Have your doctor follow-up with carbamazepine level. Return for confusion, weakness, increased falls, worsening symptoms or other concerns. Is patient prescribed a controlled substance at d/c from ED?: No Referrals: Chris Caicedo DO [Primary Care Provider] - 1-2 days Time of Disposition: 12:07
[2024-07-26 11:02] LABS: Basophils # (A) 0.06 10*3/uL (0.00-0.10); Basophils % (A) 0.9 %; Eosinophils # (A) 0.19 10*3/uL (0.04-0.35); Eosinophils % (A) 2.8 %; HCT 39.8 % (37.2-46.3); HGB 13.6 g/dL (12.0-15.0); Lymphocytes % (A) 11.8 %; MCH 29.4 pg (27.0-32.0); MCHC 34.2 g/dL (32.0-37.0); Mean Platelet Volume 10.4 fL (9.5-12.2); Monocytes # (A) 0.51 10*3/uL (0.20-1.00); Monocytes % (A) 7.5 %; Neutrophils # (A) 5.19 10*3/uL (1.80-7.70); Neutrophils % (A) 76.6 %; Platelet Count 187 10*3/uL (140-440); RBC 4.63 10*6/uL (4.10-5.20); RDW 13.7 % (11.5-14.5); WBC 6.78 10*3/uL (4.50-10.00)
--- NOTE | 2024-07-26 11:07 | CT ---
EXAMINATION TYPE: CT brain wo con DATE OF EXAM: 07/26/2024 11:00 AM COMPARISON: None. CLINICAL INDICATION: Female, 78 years old with history of fall, hi, Fall, Head injury TECHNIQUE: CT of the brain is performed utilizing 3 mm thick sections through the posterior fossa and 3 mm thick sections through the remaining calvarium. Study is performed within 24 hours of arrival to the hospital. Contrast used: mL of , (none if empty) CT DLP: 1098.4 mGycm, Automated exposure control for dose reduction was used. FINDINGS: No abnormal hyperdensity is present to suggest an acute intracranial hemorrhage. No mass lesion is evident. No acute infarcts are evident. Ventricles and sulci are appropriate for the patient age. Paranasal sinuses and mastoid air cells within the [id number] are clear. IMPRESSION: 1. No acute intracranial process. Follow up MRI can be performed as clinically indicated. [facility], , 07/26/2024 11:05 AM
--- NOTE | 2024-07-26 11:08 | XR ---
EXAMINATION TYPE: XR chest 2V DATE OF EXAM: 07/26/2024 11:03 AM COMPARISON: 12/23/2023 CLINICAL INDICATION: Female, 78 years old with history of Weakness, TECHNIQUE: XR chest 2V view(s) obtained. FINDINGS: The heart size is normal. The pulmonary vasculature is normal. The lungs are clear. IMPRESSION: 1. No acute pulmonary process. [facility], , 07/26/2024 11:06 AM
[2024-07-26 11:13] LABS: ALT 17 U/L (4-34); AST 18 U/L (14-36); African American GFR (CKD) >90 (>60 ml/min/1.73 sqM); Alkaline Phosphatase 76 U/L (38-126); Anion Gap 11 mmol/L; Blood Urea Nitrogen 15 mg/dL (7-17); Calcium 9.4 mg/dL (8.4-10.2); Carbon Dioxide 27 mmol/L (22-30); Chloride 100 mmol/L (98-107); Glucose 154 mg/dL (74-99); Magnesium 1.9 mg/dL (1.6-2.3); Non-African American GFR(CKD) 86 (>60 ml/min/1.73 sqM); Potassium 3.9 mmol/L (3.5-5.1); Sodium 138 mmol/L (137-145); Total Bilirubin 0.7 mg/dL (0.2-1.3); Total Protein 6.3 g/dL (6.3-8.2)
[2024-07-26] MEDS: ACETAMINOPHEN IV (For NPO) 1,000 MG in EMPTY BAG 1 BAG IVPB STA (11:13)
[2024-07-26 11:25] LABS: Appearance,Urine Clear (Clear); Bacteria,Urine Rare /hpf; Bilirubin,Urine Negative (Negative); Blood,Urine Moderate (Negative); Color,Urine Colorless; Glucose,Urine (UA) 4+ (Negative); Ketones,Urine Negative (Negative); Leukocyte Esterase,Urine Negative (Negative); Mucus,Urine Rare /hpf; Nitrite,Urine Negative (Negative); Protein,Urine Negative (Negative); RBC,Urine 1 /hpf (0-5); Specific Gravity,Urine 1.033 (1.001-1.035); Squamous Epithelial Cell,Urine <1 /hpf (0-4); Urobilinogen,Urine <2.0 mg/dL (<2.0); WBC,Urine 1 /hpf (0-5)
[2024-07-26 11:36] LABS: INR 0.9 (<1.2); Partial Thromboplastin Time 22.2 sec (22.0-30.0); Prothrombin Time 9.9 sec (10.0-12.5)
[2024-07-26 13:26] VITALS: BP 127/74; PULSE 68; RESP 18
[2024-07-27 02:27] LABS: Carbamazepine (Tegretol) <2.0 UG/ML (4.0-12.0)
== END 2024-07-26 13:24 | disposition home or self-care (01) ==
LOC: EC 10:16
DX: S09.90XA Unspecified injury of head, initial encounter (principal); Z86.73 Personal history of transient ischemic attack (TIA), and cerebral infarction without residual deficits; Z88.8 Allergy status to other drugs, medicaments and biological substances; Z88.5 Allergy status to narcotic agent; W01.198A Fall on same level from slipping, tripping and stumbling with subsequent striking against other object, initial encounter
CPT/HCPCS: 36415; 93005; 80156; 80053; 83735; 85025; 85610; 85730; 81001; 71046; 70450; 99284; 96374; J0131

== ENCOUNTER → 2024-09-04 | Outpatient (CLI) | payer MEDICARE, OTHER ==
--- NOTE | 2024-09-04 09:13 | MR ---
EXAMINATION TYPE: MR brain wo con DATE OF EXAM: 09/04/2024 7:46 AM COMPARISON: Correlation CT 08/07/2024 and prior MRI 11/03/2021 CLINICAL INDICATION: Female, 79 years old with history of I63.9 CEREBRAL INFARCTION, UNSPECIFIED, Hea daches, right visual field defect, fall. TECHNIQUE: Multiplanar, multisequence images of the brain and brainstem were acquired without IV con trast. Diffusion weighted imaging is performed. FINDINGS: No evidence for acute infarction, hemorrhage, mass, mass effect, midline shift, herniation, effacemen t of basal cisterns, or extra-axial fluid collection. Redemonstrated mild to moderate ventriculomegaly with Seaman ratio calculated at 0.33, unchanged from 202. Otherwise, there is moderate volume loss with secondary sulcal prominence. Major intracranial flow voids are intact. T2/FLAIR weighted sequences show minimal periventricular bright signal change, likely age related chr onic small vessel changes. Midline structures demonstrate normal morphology. The craniocervical junction is normal. Mild to moderate mucosal thickening ethmoid air cells. Leftward nasal septal deviation. Some scattere d fluid within the right mastoid air cells. Globes are intact. IMPRESSION: 1. Similar mild to moderate hydrocephalus compared to 2021, probably due to central cerebral atrophy. Correlate to exclude a component of NPH. 2. Additional moderate generalized cerebral cortical atrophy. 3. No acute intracranial abnormality seen. 4. Some scattered trapped fluid in the right mastoid air cells of questionable clinical significance. Correlate for any mastoid pain to exclude mastoiditis. [facility], , 09/04/2024 9:10 AM
== END | disposition home or self-care (01) ==
LOC: RADMRIMAIN 06:44
PROVIDERS: ATTEND Psychiatry & Neurology Neurology
DX: I63.9 Cerebral infarction, unspecified (principal); G91.9 Hydrocephalus, unspecified; G31.89 Other specified degenerative diseases of nervous system
CPT/HCPCS: 70551